=== PATIENT | female | born 1965 | race Caucasian/White ===

== ENCOUNTER 2023-03-21 08:34 | Outpatient (OUT) | payer OTHER, SELFPAY ==
[2023-03-21 08:56] LABS: Basophils Absolute Auto 0.1 10^3/uL (0.0-0.1); Basophils Percent Auto 0.8 % (0.2-2.0); Eosinophils Absolute Auto 0.2 10^3/uL (0.0-0.7); Eosinophils Percent Auto 3.1 % (0.9-7.0); Hematocrit 38.7 % (36.0-48.0); Hemoglobin 12.6 g/dL (12.0-16.0); Immature Granulocytes Abs Auto 0.02 10^3/uL (0.00-0.03); Immature Granulocytes Pct Auto 0.3 % (0.0-0.5); Lymphocytes Absolute Auto 1.8 10^3/uL (1.2-3.8); Lymphocytes Percent Auto 29.2 % (20.5-60.0); Mean Corpuscular HGB Conc 32.6 g/dL (29.9-35.2); Mean Corpuscular Hemoglobin 29.5 pg (26.7-34.0); Mean Corpuscular Volume 90.6 fL (81.0-99.0); Mean Platelet Volume 10.3 fL (9.5-13.5); Monocytes Absolute Auto 0.6 10^3/uL (0.3-0.8); Monocytes Percent Auto 10.2 % (1.7-12.0); Neutrophils Absolute Auto 3.4 10^3/uL (1.4-6.5); Neutrophils Percent Auto 56.4 % (43.0-75.0); Platelet Count 290 10^3/uL (150-450); Red Blood Count 4.27 10^6/uL (4.20-5.40); Red Cell Distribution Width 12.9 % (11.0-15.0); White Blood Count 6.1 10^3/uL (4.0-11.0)
[2023-03-21 09:14] LABS: Alanine Aminotransferase 58 U/L (14-59); Albumin Globulin Ratio 0.8; Albumin Level 3.5 g/dL (3.4-5.0); Alkaline Phosphatase 150 U/L (46-116); Aspartate Amino Transferase 32 U/L (15-37); Bilirubin Direct 0.1 mg/dL (0.0-0.2); Bilirubin Total 0.3 mg/dL (0.2-1.0); Globulin 4.5 g/dL
== END 2023-03-21 08:35 ==
LOC: LAB 08:38
PROVIDERS: PCP Internal Medicine
DX: K74.3 Primary biliary cirrhosis (principal)
CPT/HCPCS: 36415; 80076; 85025

== ENCOUNTER 2023-03-28 09:19 | Outpatient (OUT) | payer OTHER, SELFPAY | END 2023-03-28 09:20 | disposition home or self-care (01) | LOC: LAB 09:20 | PROVIDERS: PCP Internal Medicine | DX: E55.9 Vitamin D deficiency, unspecified (principal); K74.3 Primary biliary cirrhosis; Z86.010 Personal history of colon polyps | CPT/HCPCS: 36415; 82306 ==

== ENCOUNTER 2023-08-04 09:45 | Outpatient (OUT) | payer OTHER, SELFPAY ==
[2023-08-04 10:54] LABS: Free T3 2.03 pg/mL (2.18-3.98); Thyroid Stimulating Hormone 1.266 uIU/mL (0.358-3.740)
== END 2023-08-04 09:46 | disposition home or self-care (01) ==
LOC: LAB 09:48
PROVIDERS: PCP Internal Medicine; Visit Provider Internal Medicine
DX: E06.3 Autoimmune thyroiditis (principal); E55.9 Vitamin D deficiency, unspecified
CPT/HCPCS: 36415; 84439; 84443; 84481

== ENCOUNTER 2023-10-24 09:10 | Outpatient (OUT) | payer OTHER, SELFPAY ==
--- OUTSIDE RECORDS SUMMARY | 2023-10-24 09:15 | XMS_ITS | CCD ---
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 Primary Care Provider SHAIKH GUO Primary Care Physician [phone] Alok Choi Jr. Primary Care Provider SALAM, REEVES Admitting Unavailable SALAM, REEVES Attending Unavailable FAWWAD, GRAVES H Primary Care Unavailable SALAM, REEVES Consulting Unavailable FAWWAD, GRAVES H Consulting Unavailable FAWWAD, GRAVES H Primary Care Unavailable FAWWAD, GRAVES H Admitting Unavailable FAWWAD, GRAVES H Attending Unavailable FAWWAD, GRAVES H Primary Care Unavailable RYDER, AHMAD Consulting Unavailable RYDER, AHMAD Admitting Unavailable RYDER, AHMAD Attending Unavailable FAWWAD, GRAVES H Primary Care Unavailable MISC, DR MORENO Admitting Unavailable MISC, DR MORENO Attending Unavailable MISC, DR MORENO Consulting Unavailable SALAM, REEVES Admitting Unavailable SALAM, REEVES Attending Unavailable SALAM, REEVES Consulting Unavailable FAWWAD, GRAVES H Primary Care Unavailable FAWWAD, GRAVES H Primary Care Unavailable FAWWAD, GRAVES H Admitting Unavailable FAWWAD, GRAVES H Attending Unavailable FAWWAD, GRAVES H Consulting Unavailable FAWWAD, GRAVES H Consulting Unavailable FAWWAD, GRAVES H Primary Care Unavailable FAWWAD, GRAVES H Admitting Unavailable FAWWAD, GRAVES H Attending Unavailable YAS WALL Referring Unavailable ALOK CHOI JR Primary Care Unavail able YAS WALL Attending Unavailable YAS WALL S Referring Unavailable ALOK CHOI JR [facility] Care Unavail able O'MENDEZYAS Attending Unavailable BRANT [facility] Primary Care Unavailable Vitaly Stauffer Attending Unavaila amador GUO, [facility] Primary Care Unavailable SALAM, Reeves Attending Unavailable SALAM, Reeves Attending Unavailable [facility] Un[facility] SALAM, Reeves Referring Unavailable [facility] Primary Care Unavailable SALAM, Reeves Admitting Unavailable SALAM, Reeves Attending Unavailable FAWCHACORTA, [facility] Care Unavailable O'MENDEZ, YAS S Admitting Unavailable O'MENDEZ, YAS Faustin Attending Unavailable O'MENDEZYAS Referring Unavailable STACIA, [facility] Primary Care Unavailable Vitaly Stauffer Attending UnavailHERMES Clark Attending Unavailable HERMES JOHNSON Attending Unavailable Brant URIAS [facility] Provider [phone] LYNDON QUINN Attending Unavailable [facility] Unavailable HERMES CABALLERO Attending Unavailable [facility] Unavailable Allergies Allergy Classification Reported Allergen(s) Allergy Type Date of Onset Reaction(s) Facility (9 sources) rifAMPin; Translations: [RIFAMPIN] Drug Allergy 6 Rash, Itching [facility] (14 sources) Sulfonamides (Antibiotic); Translations: [SULFA (SULFONAMIDE ANTIBIOTICS)] Drug Allergy 9 Other: See Comments, Hives [facility] (6 sources) Sulfonamides (Antibiotic); Translations: [sulfa drugs] Drug allergy allergy [facility] (1 source) Sulfonamides (Antibiotic) Drug allergy (disorder) 3 [facility] (1 source) ALLERGIES NOT ON FILE; Translations: [ALLERGIES NOT ON FILE] Propensity to adverse reactions (disorder) [facility] [place] 3 Repository Medications Current Medications Medication Drug Class(es) Dates Sig (Normalized) Sig (Original) calcium carbonate 1250 mg / cholecalciferol 200 unt oral tablet (4 sources) Vitamin D take 1 tablet by mouth once daily calcium carbonate-vitamin D3 500 mg-5 mcg (200 unit) tablet Take 1 tablet by mouth once daily. 0 Active calcium citrate 500 mg oral tablet (5 sources) Start: 11-17-2020 take 500 mg by mouth twice daily calcium citrate 500 mg, Oral, BID, Refills(s) 0, Prophylaxis Start Date: 11/17/20 Status: Ordered calcium citrate 1500 mg / cholecalciferol 200 unt oral tablet (4 sources) Vitamin D take 1 tablet by mouth once daily calcium citrate-vitamin D3 (Citracal+D) 315 mg-5 mcg (200 unit) tablet Take 1 tablet by mouth once daily. 0 Active fenofibrate 145 mg oral tablet (15 sources) Peroxisome Proliferator Receptor alpha Agonist Start: 10-14-2022 End: 04-12-2023 take 0.5 tablet by mouth every other day fenofibrate 145 mg Tab 1/2 tab(s), Oral, Every other day, X 90 day(s), # 90 tab(s), Refills(s) 1, Pharmacy: [facility] [id number], 160, cm, 05/13/22 13:20:00 EDT, Height/Length Dosing, 76.6, kg, 05/13/22 13:20:00 EDT, Weight Dosing Start Date: 10/14/22 Stop Date: 04/12/23 Status: Ordered Start: 09-15-2021 take 0.5 tablet by m out once daily fenofibrate 145 mg Tab 1/2 tab(s), Oral, Daily, # 30 tab(s), Refills(s) 4, Pharmacy: [facility], 160, cm, 09/15/21 14:38:00 EST, Height/Length Dosing, 75.6, kg, 09/15/21 14:38:00 EST, Weight Dosing Start Date: 09/15/21 Status: Ordered Start: 08-18-2021 take 1 tablet by sara th once daily fenofibrate nanocrystallized (TRICOR) 145 mg tablet TAKE 1 TABLET BY MOUTH EVERY DAY 30 tablet 11 08/18/2021 Active Comment on above: TAKE 1 TABLET BY SARA TH EVERY DAY multivitamin tablet (4 sources) take 1 tablet by mouth once daily multivitamin tablet Take 1 tablet by mouth once daily. 0 Active Multivitamins and Minerals (5 sources) Start: take 1 tablet by mouth once daily Multivitamins and Minerals 1 tab, Oral, Daily, Refill(s) 0, Prophylaxis Start Date: 11/17/20 Status: Ordered obeticholic acid 5 mg oral tablet (18 sources) Farnesoid X Receptor Agonist Start: take 2.5 mg by mouth once daily Ocaliva 5 mg oral tablet See Instructions, 2.5 mg= 1/2 tablet Oral Daily, # 30 tab(s), Refills(s) 0, Pharmacy: [facility], 160, cm, 01/12/23 10:47:00 EDT, Height/Length Dosing, 84.6, kg, 01/12/23 10:47:00 EDT, Weight Dosing Start Date: 01/12/23 Status: Ordered Start: 10-21-2021 End: 10-16-2022 take 1 tablet by mouth once daily Ocaliva 5 mg oral tablet 5 mg = 1 tab(s), Oral, Daily, X 90 day(s), # 90 tab(s), Refills(s) 3, Pharmacy: [facility], 160, cm, 09/15/21 14:38:00 EST, Height/Length Dosing, 75.6, kg, 09/15/21 14:38:00 EST, Weight Dosing Start Date: 10/21/21 Stop Date: 10/16/22 Status: Ordered Start: 09-15-2021 take 0.5 tablet by m outh once daily Ocaliva 5 mg oral tablet 1/2, Oral, Daily, # 15 tab(s), Refills(s) 11, Pharmacy: [facility], 160, cm, 09/15/21 14:38:00 EST, Height/Length Dosing, 75.6, kg, 09/15/21 14:38:00 EST, Weight Dosing Start Date: 09/15/21 Status: Ordered ursodiol 500 mg oral tablet (17 sources) Bile Acid Start: 01-12-2023 take 1 tablet by mouth twice daily at mealtime ursodiol 500 mg Tab 500 mg = 1 tab(s), Oral, BID, with food, # 60 tab(s), Refills(s) 11, Pharmacy: [facility], 160, cm, 01/12/23 10:47:00 EDT, Height/Length Dosing, 84.6, kg, 01/12/23 10:47:00 EDT, Weight Dosing Start Date: 01/12/23 Status: Ordered Start: 09-15-2021 take 1 tablet by sara twice daily at mealtime ursodiol 500 mg Tab 500 mg = 1 tab(s), Oral, BID, with food, # 60 tab(s), Refills(s) 11, Pharmacy: [facility], 160, cm, 09/15/21 14:38:00 EST, Height/Length Dosing, 75.6, kg, 09/15/21 14:38:00 EST, Weight Dosing Start Date: 09/15/21 Status: Ordered Start: 12-29-2020 take 1 tablet by sara three times daily Ursodiol 500 mg tablet TK 1 T PO TID WF 180 tablet 3 12/29/2020 Active Comment on above: TK 1 T PO TID WF Vitamin D 50,000 intl units (1.25 mg) oral capsule (9 sources) Start: 05-12-2023 End: 05-06-2024 Vitamin D 50,000 intl units (1.25 mg) oral capsule 50,000 International_Unit, Oral, qWeek, X 90 day(s), # 12 cap(s), Refills(s) 3, Pharmacy: [facility] [id number], 160, cm, 05/12/23 13:51:00 EDT, Height/Length Dosing, 83.4, kg, 05/12/23 13:51:00 EDT, Weight Dosing Start Date: 05/12/23 Stop Date: 05/06/24 Status: Ordered Start: 04-18-2023 End: 05-18-2023 Vitamin D 50,000 intl units (1.25 mg) oral capsule 50,000 International_Unit, Oral, qWeek, X 30 day(s), # 4 cap(s), Refills(s) 0, Pharmacy: [facility] [id number], 160, cm, 01/12/23 10:47:00 EDT, Height/Length Dosing, 84.6, kg, 01/12/23 10:47:00 EDT, Weight Dosing Start Date: 04/18/23 Stop Date: 05/18/23 Status: Ordered Start: 09-09-2022 take 1 capsule by mouth once V itamin D 50,000 intl units (1.25 mg) oral capsule See Instructions, 1 cap(s) Oral As Directed tuesday-Tuesday as previously prescribed per Dr. Bill., # 24 cap(s), Refills(s) 1, Pharmacy: [facility] [id number], 160, cm, 05/13/22 13:20:00 EDT, Height/Length Dosing, 76.6, kg, 05/13/22 13:20:00 EDT,... Start Date: 09/09/22 Status: Ordered Start: 09-15-2021 Vitamin D 50,0 00 intl units (1.25 mg) oral capsule 50,000 International_Unit, Oral, As Directed, # 24 cap(s), Refills(s) 0, Pharmacy: [facility], 160, cm, 09/15/21 14:38:00 EST, Height/Length Dosing, 75.6, kg, 09/15/21 14:38:00 EST, Weight Dosing Start Date: 09/15/21 Status: Ordered Completed/Discontinued Medications Medication Drug Class(es) Dates Sig (Normalized) Sig (Original) alendronic acid 70 mg oral tablet (17 sources) Bisphosphonate Start: 09-07-2021 take 1 tablet by mouth every week in the morning alendronate (FOSAMAX) 70 mg tablet Indications: Osteopenia with high risk of fracture TAKE 1 TABLET BY MOUTH ONCE EVERY WEEK. TAKE WITH FULL GLASS OF WATER IN THE MORNING ON AN EMPTY STOMACH. DO NOT LIE DOWN FOR 30 MINUTES 12 tablet 3 09/07/2021 Active Start: 11-17-2020 take 1 tablet by sara th once daily alendronate 10 mg Tab 10 mg = 1 tab(s), Oral, Daily, osteoporosis, Refills(s) 0, Other (see comment) Start Date: 11/17/20 Status: Ordered take 1 tablet by sara th in the morning alendronate (Fosamax) 70 mg tablet Take 1 tablet (70 mg) by mouth every 7 days. Take in the morning with a full glass of water, on an empty stomach, and do not take anything else by mouth or lie down for the next 30 min. 0 Active Comment on above: TAKE 1 TABLET BY SARA TH ONCE EVERY WEEK. TAKE WITH FULL GLASS OF WATER IN THE MORNING ON AN EMPTY STOMACH. DO NOT LIE DOWN FOR 30 MINUTES clobetasol propionate 0.0005 mg/mg topical ointment (8 sources) Corticosteroid Start: 007 CLOBETASOL 0.05 % OINTMENT Indications: Contact dermatitis and other eczema, due to unspecified cause , Other and unspecified superficial injury of other, multiple, and unspecified sites, without mention of infection Apply to affected area(s) twice daily PRN itch ` large trade size 2 10/26/2006 Active Comment on above: Apply to affected ar ea(s) twice daily PRN itch ergocalciferol 1.25 mg oral capsule (8 sources) Provitamin D2 Compound Start: 020 ergocalciferol 50,000 unit capsule (VITAMIN D2, DRISDOL) TK 1 C PO TWICE A WEEK ON TUESDAY AND TUESDAY 0 11/09/2019 Active Comment on above: TK 1 C PO TWICE A WE EK ON TUESDAY AND TUESDAY levothyroxine sodium 0.15 mg oral tablet (17 sources) l-Thyroxine Start: 021 take 1 tablet by mouth once daily, then take 5 tablets by mouth every week levothyroxine (SYNTHROID) 150 mcg tablet Indications: Other specified hypothyroidism Take 1 tablet by mouth once daily. But skip Saturdays and Sundays (so total 5 tablets per week) 66 tablet 3 12/22/2020 Active Start: 01-22-2016 levothyroxine 175 microgram, Oral, As Directed, Refills(s) 0, Thyroid Start Date: 01/22/16 Status: Ordered take 1 capsule by mo [facility] once daily levothyroxine (Tirosint) 112 mcg capsule Take 1 capsule (112 mcg) by mouth once daily. 0 Active Comment on above: Take 1 tablet by sara th once daily. But skip Saturdays and Sundays (so total 5 tablets per week) MULTIVITAMIN ORAL (8 sources) take 1 tablet by mouth once daily MULTIVITAMIN ORAL Take 1 tablet by mouth once daily. 0 Active Comment on above: Take 1 tablet by sara once daily. Problems Active Problems Problem Classification Problem Date Documented Da te Episodic/Chronic Administrative/social admission (4 sources) Encounter for pre-employment examination; Translations: [ENCOUNTER FOR PRE-EMPLOYMENT EXAM] Onset: 11-23-2022 Episodic Cancer of pancreas (6 sources) Familial malignant neoplasm of pancreas; Translations: [Malignant neoplasm of pancreas, unspecified] Onset: 10-05-2023 10-05-2023 Chronic Menopausal disorders (4 sources) Menopausal and female climacteric states; Translations: [MENOPAUSAL FE CLIMACTERIC STATES] Onset: 09-22-2022 Chronic Nutritional deficiencies (6 sources) Vitamin D deficiency; Translations: [Vitamin D deficiency, unspecified] Onset: 01-12-2023 Chronic Other and unspecified benign neoplasm (8 sources) History of polyp of colon; Translations: [Personal history of colonic polyps] Onset: 05-13-2022 Episodic Other bone disease and musculoskeletal deformities (1 source) Disorder of bone; Translations: [Other specified disorders of bone density and structure, unspecified site] Onset: 05-12-2023 Episodic Other bone disease and musculoskeletal deformities (1 source) Osteopenia 05-12-2023 Episodic Other liver diseases (20 sources) Primary biliary cholangitis; Translations: [Primary biliary cirrhosis] Onset: 01-21-2021 01-21-2021 Chronic Other liver diseases (4 sources) Primary biliary cirrhosis; Translations: [PRIMARY BILIARY CIRRHOSIS] Onset: 01-07-2023 Chronic Other nutritional; endocrine; and metabolic disorders (2 sources) Obesity; Translations: [Obesity, unspecified] Onset: 10-06-2023 10-06-2023 Chronic Other screening for suspected conditions (not mental disorders or infectious disease) (3 sources) Encounter for screening for diabetes mellitus; Translations: [Imaging of abdomen abnormal] Onset: 02-24-2022 Episodic Residual codes; unclassified (2 sources) Family history of carrier of genetic disease; Translations: [Family history of carrier of genetic disease] Onset: 08-09-2023 Episodic Residual codes; unclassified (8 sources) 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; Translations: [Genetic susceptibility to malignant neoplasm of breast] Onset: 09-21-2023 09-21-2023 Episodic Residual codes; unclassified (2 sources) Genetic susceptibility to malignant neoplasm of breast; Translations: [Genetic susceptibility to malignant neoplasm of breast] Onset: 09-21-2023 Episodic Residual codes; unclassified (2 sources) Genetic susceptibility to other malignant neoplasm; Translations: [Genetic susceptibility to other malignant neoplasm] Onset: 09-21-2023 Episodic Thyroid disorders (11 sources) Hypothyroidism; Translations: [Hypothyroidism, unspecified] Onset: 05-13-2022 Chronic Past or Other Problems Problem Classification Problem Date Documented Date Episodic/Chronic Allergic reactions (8 sources) Contact dermatitis; Translations: [Unspecified contact dermatitis, unspecified cause] Onset: 10-30-2006 10-30-2006 Episodic Immunizations and screening for infectious disease (16 sources) Anti-nuclear factor positive; Translations: [Other specified abnormal immunological findings in serum] Onset: 01-21-2021 01-21-2021 Episodic Malaise and fatigue (1 source) Other fatigue; Translations: [OTHER FATIGUE] Onset: 09-30-2022 Episodic Other and unspecified benign neoplasm (1 source) Personal history of colonic polyps; Translations: [PERSONAL HISTORY OF COLONIC POLYPS] Onset: 09-30-2022 Episodic Other connective tissue disease (8 sources) Decrease in height; Translations: [Loss of height] Onset: 01-21-2021 01-21-2021 Episodic Other inflammatory condition of skin (8 sources) Pruritus of skin; Translations: [Pruritus, unspecified] Onset: 10-30-2006 10-30-2006 Episodic Other injuries and conditions due to external causes (8 sources) H/O: fracture; Translations: [Personal history of (healed) traumatic fracture] Onset: 01-21-2021 01-21-2021 Episodic Unclassified (4 sources) Onset: 09-08-2023 09-08-2023 Results Test Name Value Interpretation Reference Range Facility Endoscopic Ultrasound (Upper )on 10-06-2023 Table formatting from the original result was not included. Impression The pancreatic parenchyma was visualized in the entire pancreas and appeared to have a normal salt and pepper appearance. The pancreatic duct appeared normal. Findings The pancreatic parenchyma was visualized in the entire pancreas and appeared to have a normal salt and pepper appearance. The pancreatic duct appeared normal and measured 2.8 mm at the head, 2.4 mm at the body and 1.6 mm at the tail. Mildly bulbuous at the orifice but not enlarged enough to suggest pancreaticocoele Recommendation Follow up with me in clinic MR/MRCP in one year Indication BRCA positive, Primary biliary cholangitis (CMS/HCC), Familial malignant neoplasm of pancreas (CMS/HCC) Staff Staff Role No Staff Documented Medications See Anesthesia Record. Preprocedure A history and physical has been performed, and patient medication allergies have been reviewed. The patient's tolerance of previous anesthesia has been reviewed. The risks and benefits of the procedure and the sedation options and risks were discussed with the patient. All questions were answered and informed consent obtained. Details of the Procedure The patient underwent monitored anesthesia care, which was administered by an anesthesia professional. The patient's blood pressure, heart rate, level of consciousness, oxygen, respirations, ECG and ETCO2 were monitored throughout the procedure. The radial scope was introduced through the mouth and advanced to the second part of the duodenum. Events Procedure Events Event Event Time ENDO SCOPE IN TIME 10/06/2023 2:09 PM ENDO SCOPE OUT TIME 10/06/2023 2:15 PM Specimens No specimens collected Procedure Location [facility] [address] [facility] [id number] [place] [address] Department Of Medicine-[place] [address] Procedure Provider Vance Baires MD [facility] Work Phone: [facility] Work Phone: Radiology Study observation (narrative) [facility] Work Phone: Gastroenterology Office/Clin ic Noteon 05-16-2023 Gastroenterology Office/Clinic Note Chief Complaint 4 mo follow up HPI Staff This is a 58 year old female who presents today for a 4 month follow up. History of Present Illness Nithya Vasques is a 58-year-old white female for follow up. 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 Her last Fibro Scan showed still no fibrosis and no steatosis. Her DEXA scan was last year, and she was updated with it. She has osteopenia. Her last AST and ALT on showed normal. The patient states that during the ultrasound session, the focus was on her gallbladder, which was noted to be distended, causing some concerns. She inquired about calcium supplements, whoever i should opt for [id number] options or require a prescription for vitamin D. Currently. I am taking half a pill of 5 mg Ocaliva, equating to 2.5 mg, o a weekly basis. This dose has been used to take 2 vitamin D pills each week. However, she encountered issues with tolerating higher doses of Ocaliva, experiencing loose stool frequently after each bathroom visit. She experienced itching g my ALT and AST levels have shown fluctuations and were elevated, and Dr. Wall has been manageable my primary biliary condition. During her time, she has been taking 2.5 mg of ursodiol. Her weight has increased by 40 pounds, which was initially considered adequate. This weight gain has raised concerns particularly in light grain has raised concerns, particularly in light of potential implication of obesity and fatty lever, possibly making her candidate for CROW, in addition to dealing with three autoimmune diseases. Review of Systems PHQ Score Initial Depression Screen Score: 0 Constitutional: no fever, no chills, no sweats, no weakness Skin: no Jaundice, no rash, no lesions, no petechiaec ENMT: no ear pain, no sore throat, no congestion, no hoarseness Respiratory: no shortness of breath, no cough, no orthopnea, no wheezing Cardiovascular: no chest pain, no palpitations, no edema Gastrointestinal: no nausea, no vomiting, no diarrhea, no constipation, no GI bleeding, no abdominal pain, no dysphagia, no bloating, no heartburn Genitourinary: no dysuria, no hematuria, no discharge, no pain Musculoskeletal: no back pain, no trauma Neurologic: no numbness, no sleeping problems Additional ROS info: Except as noted in the above Review of Systems and in the History of Present Illness all other systems have been reviewed and are negative or noncontributory. Physical Exam Vitals & Measurements T: 36.6 ?C(Temporal Artery) HR: 69(Peripheral) RR: 16 BP: 111/75 HT: 63 in HT: 160 cm WT: 83.4 kg WT: 183.48 lb BMI: 32.58 Constitutional: Appearance: well developed. Skin: Inspection: no rashes, ulcers, icterus, or telangiectasias. Eyes: Conjunctivae/lids: normal conjunctivae and lids. ENMT: Hearing: within normal limits. Lips/Teeth/Gums: normal oral mucosa. Neck: Neck: normal motion, central trachea. Respiratory: Percussion: thorax normoresonant. Auscultation: normal breath sounds; no rubs, wheezes, rale, or rhonchi. Cardiovascular: Auscultation: normal rhythm, S1 and S2; no rubs, murmurs, or gallop. Peripheral: no edema. Gastrointestinal/Abd omen: Abdomen: normal consistency and bowel sounds; no tenderness or masses. Liver/Spleen: normal size and consistency, not palpable. Rectal: deferred. Musculoskeletal: Gait/Station: normal gait. Assessment/Plan 1. Primary biliary cholangitis (K74.3: Primary biliary cirrhosis) Patient had a recent FibroScan, which showed no fibrosis and no steatosis. Her alkaline phosphatase is 150. She's on ergocalciferol 1250 mg p.o. daily and Ocaliva 5 mg p.o. daily. She did not tolerate higher doses of Ocaliva in the past, secondary to worsening diarrhea. She is following up with [facility] hepatology also. 2. Vitamin D deficiency (E55.9: Vitamin D deficiency, unspecified) Corrected and level is back to normal. She is on weekly vitamin D treatment. Advised to continue with the current day dose. 3. Osteopenia (M85.80: Other specified disorders of bone density and structure, unspecified site) Based on recent DEXA scan. Advised to start vitamin D and to continue with vitamin D and to start calcium. Patient was also advised to follow up with her primary care physician as osteopenia need to be treated as if it's osteoporosis in a patient with primary biliary cholangitis. 4. Personal history of colonic polyps (Z86.010: Personal history of colonic polyps) Last colonoscopy was on 12/2020 showed no further colonic polyps. Next colonoscopy would be due in 7 years and would be due in 2027. 5. Abnormal US (ultrasound) of abdomen (R93.5: Abnormal findings on diagnostic imaging of other abdominal regions, including retroperitoneum) Patient has mild concentration concerns about her dilated gallbladder mentioned on the ultrasound report. I reviewed the report and her gallbladder distention is physiologic. She is asymptomati (more content not included)... Normal [facility] Comment on above: Result Comment: Elec tronically Signed By: Hunter Devi\.br\Date and Time Signed: 05/12/23 18:26 EDT\.br\Electronically Co-Signed By: Leandro BILL MD\.br\Date and Time Co-Signed: 05/16/23 14:00 EDT Ambulatory Visit Summaryon 0 05-12-2023 Ambulatory Visit Summary NITHYA VASQUES :1965 Visit Date:05/12/2023 Ambulatory Visit Instructions Your Diagnosis Primary biliary cholangitis Vitamin D deficiency Osteopenia Personal history of colonic polyps Abnormal US (ultrasound) of abdomen Your Care Team Attending Physician - Leandro BILL MD Primary Care Physician - SHAIKH GUO This Is Your Medications List ergocalciferol (Vitamin D 50,000 intl units (1.25 mg) oral capsule) Contact prescribing physician if questions or concerns alendronate (alendronate 10 mg Tab) calcium citrate ergocalciferol (Vitamin D 50,000 intl units (1.25 mg) oral capsule) levothyroxine multivitamin with minerals (Multivitamins and Minerals) obeticholic acid (Ocaliva 5 mg oral tablet) obeticholic acid (Ocaliva 5 mg oral tablet) obeticholic acid (Ocaliva 5 mg oral tablet) ursodiol (ursodiol 500 mg Tab) Procedures Performed Colonoscopy (12/29/2020), Appendectomy, section, Tonsillectomy and adenoidectomy. Discharge Vitals Temperature (Temporal Artery) 36.6 ?C Heart Rate (Peripheral) 69 Respiratory Rate 16 Blood Pressure 111/75 Height 160 cm Height 63 in Weight 83.4 kg Weight 183.48 lb BMI 32.58 What to do next Scheduled Follow-Up Appointments Tuesday 10:45 AM EDT With: Leandro BILL MD Where: [facility] Normal [facility] Tele[facility] (GASTA5) NITHYA VASQUES ([id number]) 1965 F Date Time Provider Department 05/05/23 YAS WALL GASTA5 During your visit today, we recorded the following information about you: Annette Molina RN 05/05/2023 12:16 PM Signed Pt sent the following MCM regarding US and fibroscan results: I didn?t see these results in my chart for the [facility], so I am sending them. Can you see that Dr. Ortiz sees these? Pt uploaded images of results under scanned docs. Results not viewable in Care Everywhere at this time. See scanned docs for results review. Annette Molina RN May 05, 2023 12:16 PM Yas Wall MD 05/06/2023 1:46 PM Signed Fibroscan w Ekpa 4.8 Us stable Allergies As of Date: 05/05/2023 Noted Allergy Reaction RIFAMPIN 06/15/2006 2 - Rash 9 - Itching SULFA (SULFONAMIDE ANTIBIOTICS) 09/18/2019 14 - Other: See Comments Date Reviewed: 01/21/2021 Reviewed by: Jonh Forde - Fully Assessed Reason for Visit: Results [95] Prescriptions as of 05/06/2023 - alendronate (FOSAMAX) 70 mg tablet TAKE 1 TABLET BY MOUTH ONCE EVERY WEEK. TAKE WITH FULL GLASS OF WATER IN THE MORNING ON AN EMPTY STOMACH. DO NOT LIE DOWN FOR 30 MINUTES - fenofibrate nanocrystallized (TRICOR) 145 mg tablet TAKE 1 TABLET BY MOUTH EVERY DAY - Ursodiol 500 mg tablet TK 1 T PO TID WF - levothyroxine (SYNTHROID) 150 mcg tablet Take 1 tablet by mouth once daily. But skip Saturdays and Sundays (so total 5 tablets per week) - MULTIVITAMIN ORAL Take 1 tablet by mouth once daily. - ergocalciferol 50,000 unit capsule (VITAMIN D2, DRISDOL) TK 1 C PO TWICE A WEEK ON TUESDAY AND TUESDAY - CLOBETASOL 0.05 % OINTMENT Apply to affected area(s) twice daily PRN itch Problem List As Of Date 05/05/2023 Noted Resolved DERMATITIS NOS [L25.9] 10/30/2006 PRURITIC DISORDER NOS [L29.9] 10/30/2006 Primary biliary cirrhosis (HCC) [K74.3] 01/21/2021 History of fracture [Z87.81] 01/21/2021 Loss of height [R29.890] 01/21/2021 Positive MIRACLE (antinuclear antibody) [R76.8] 01/21/2021 Centromere antibody positive [R76.8] 01/21/2021 Encounter Status:Closed by YAS WALL on 05/06/23 Normal [facility] Postoperative Documentson Postoperative Documents [id number]#1.00CD:127 Normal [facility] Consent for Treatmenton 04-02 Consent for Treatment [id number] #1.00CD:127 Normal [facility] Lab Reportson 04-20-2023 Lab Reports [id number] #1.00CD:127 Normal [facility] Lab Reports [id number] #1.00CD:127 Normal [facility] US Abdomen, Limitedon 2022 US Abdomen, Limited Exam Date/Time: 04/20/2023 09:28 EDT Reason for Exam: K74.3 Report IMPRESSION: FINDINGS SUGGESTING MILD HEPATIC STEATOSIS. EXAMINATION: US Abdomen, Limited HISTORY: Primary biliary cirrhosis COMPARISON: None available TECHNIQUE: Ultrasound evaluation was performed of the right upper quadrant of the abdomen FINDINGS: Slight increased echogenicity of the liver. Normal contour of the liver. No liver lesion or intrahepatic biliary dilatation identified. Liver length measured at approximately 14.5 cm. The gallbladder is physiologically distended. No cholelithiasis or pericholecystic fluid. Gallbladder wall thickness is normal measured at approximately 2.6 mm. Common bile duct is normal measuring approximately 3.7 mm in diameter. No overt abnormality of the pancreas. Ordering Provider: YAS WALL FINAL REPORT Dictated: 04/20/2023 4:51 pm Yas Rodriguez DO Signed (Electronic Signature): 04/20/2023 4:51 pm Signed by: Yas Rodriguez DO Transcribed by: DP Technologist: HW [facility] Physician Orderon 04-12-2023 Physician Order [id number] #1.00CD:127 [facility] CNPNon 2023 CNPN Telephone (GASTA5) NITHYA VASQUES ([id number]) 1965 F Date Time Provider Department 04/07/23 YAS WALL GASTA5 During your visit today, we recorded the following information about you: Annette Molina RN 2023 10:17 AM Signed Pt sent the following MCM: Dr. Ortiz wanted to know it the scan was vibration or ultrasound, it was ultrasound. Pt provided attachment of fibroscan image results. See pt entered attachment from yesterday 04/06/23. Message sent to Dr. Wall for review. Annette Molina RN 2023 10:17 AM Yas Wall MD 2023 2:59 PM Signed Annette Can you please return the call, and let her know: I will put in orders for her to have it done again with ultrasound, so we have a basis for comparison Thanks Annette Molina RN 2023 3:06 PM Signed Pt notified via original MCM. Annette Molina RN 2023 3:06 PM Allergies As of Date: 2023 Noted Allergy Reaction RIFAMPIN 06/15/2006 2 - Rash 9 - Itching SULFA (SULFONAMIDE ANTIBIOTICS) 09/18/2019 14 - Other: See Comments Date Reviewed: 01/21/2021 Reviewed by: Jonh Forde - Fully Assessed Reason for Visit: Results [95] Primary Visit Diagnosis:Primary biliary cholangitis (HCC) [K74.3] Order(s):US ABD RIGHT UPPER QUADRANT [[id number]] Order #: [id number] FUTURE US ELASTOGRAPHY LIVER [[id number]] Order #: [id number] FUTURE Prescriptions as of 2023 - alendronate (FOSAMAX) 70 mg tablet TAKE 1 TABLET BY MOUTH ONCE EVERY WEEK. TAKE WITH FULL GLASS OF WATER IN THE MORNING ON AN EMPTY STOMACH. DO NOT LIE DOWN FOR 30 MINUTES - fenofibrate nanocrystallized (TRICOR) 145 mg tablet TAKE 1 TABLET BY MOUTH EVERY DAY - Ursodiol 500 mg tablet TK 1 T PO TID WF - levothyroxine (SYNTHROID) 150 mcg tablet Take 1 tablet by mouth once daily. But skip Saturdays and Sundays (so total 5 tablets per week) - MULTIVITAMIN ORAL Take 1 tablet by mouth once daily. - ergocalciferol 50,000 unit capsule (VITAMIN D2, DRISDOL) TK 1 C PO TWICE A WEEK ON TUESDAY AND TUESDAY - CLOBETASOL 0.05 % OINTMENT Apply to affected area(s) twice daily PRN itch Problem List As Of Date 2023 Noted Resolved DERMATITIS NOS [L25.9] 10/30/2006 PRURITIC DISORDER NOS [L29.9] 10/30/2006 Primary biliary cirrhosis (HCC) [K74.3] 01/21/2021 History of fracture [Z87.81] 01/21/2021 Loss of height [R29.890] 01/21/2021 Positive MIRACLE (antinuclear antibody) [R76.8] 01/21/2021 Centromere antibody positive [R76.8] 01/21/2021 Encounter Status:Closed by YAS WALL on 04/07/23 [facility] Lab Reportson 03-24-2023 Lab Reports [id number]# 1.00CD:127 [facility] Consultation Noteon 03-21-20 Consultation Note [id number] #1.00CD:127 [facility] Pre-Certification Formon Pre-Certification Form [id number]# 1.00CD:127 [facility] Pre-Certification Formon Pre-Certification Form [id number]# 1.00CD:127 [facility] Pre-Certification Formon Pre-Certification Form [id number] #1.00CD:127 [facility] Retail - Clinical Noteon Retail - Clinical Note [id number] #1.00CD:127 [facility] BD Bone Density DEXAon 02-04 BD Bone Density DEXA Exam Date/Time: 02/03/2023 14:18 EDT Reason for Exam: K74.3 E55.9 Z86.010 Report IMPRESSION: OSTEOPENIA. THE 10 YEAR PROBABILITY (FRAX) OF A MAJOR OSTEOPOROTIC FRACTURE IS 9.8% AND HIP FRACTURE IS 0.3%. CLINICAL HISTORY: K74.3 E55.9 Z86.010. COMPARISON: 12/10/2019. COMMENTS: The lumbar spine and both hips were scanned. The mean bone mineral density from L1 to L4 is 0.982 g/cm2 and this value is -1.7 standard of deviation below the standard reference value for a young adult. Bone mineral density of the left femoral neck is 0.963 g/cm2 and this value is -0.5 standard of deviation below the standard reference value. Bone mineral density of the right femoral neck is 0.971 g/cm2 and this value is -0.5 standard of deviation below the standard reference value. The lowest of the values meets WHO criteria for osteopenia. When compared to the prior exam, there has been a 5.9% increase in bone mineral density from L1 to L4, a 0.6% increase in bone mineral density of the left femoral neck, and a 4.4% increase in bone mineral density of the right femoral neck. Ordering Provider: Leandro BILL FINAL REPORT Dictated: 02/04/2023 7:52 am Adolfo Matson M.D. Signed (Electronic Signature): 02/04/2023 7:52 am Signed by: Adolfo Matson M.D. Transcribed by: STEFANIE Technologist: DARON Normal [facility] Consent for Treatmenton Consent for Treatment [id number] #1.00CD:127 Normal [facility] Lab Reportson 01-14-2023 Lab Reports [id number] #1.00CD:127 Normal [facility] Gastroenterology Office/Clin ic Noteon 01-13-2023 Gastroenterology Office/Clinic Note Chief Complaint 8 month follow up HPI Staff Patient is a 57 year old female who presents today to discuss a repeat DEXA scan for primary biliary cholangitis. History of Present Illness Nithya Vasques is a 57-year-old white female who presents today for a follow-up. She was last seen in 05/2022. She has a history of primary biliary cholangitis diagnosed at the age of [id number]. There was no fibrosis based on a FibroScan which was done in 2021. She is due for another one in 2023. Her alkaline phosphatase has been improving. She is taking ursodiol 500 mg 2 times a day and Ocaliva 2.5 mg daily. Her alkaline phosphatase is down to 166 IU/L. She has normal ALT, AST, normal total bilirubin, and alkaline phosphatase. Her alkaline phosphatase was 153 IU/L in 09/2020 and now it is 163 IU/L. She denies any itching or eczema, but her hands are dry all the time. Patient is due for a DEXA scan. She is taking vitamin D 50,000 international units once weekly. It has been a while since her vitamin D was checked. Nithya stopped taking calcium. Her last colonoscopy was in 12/2020 and there were no polyps. She denies a family history of colon cancer. She sees Dr. Wall at the [facility]. Review of Systems PHQ Score Initial Depression Screen Score: 0 Constitutional: no fever, no chills, no sweats, no weakness Skin: no Jaundice, no rash, no lesions, no petechiae ENMT: no ear pain, no sore throat, no congestion, no hoarseness Respiratory: no shortness of breath, no cough, no orthopnea, no wheezing Cardiovascular: no chest pain, no palpitations, no edema Gastrointestinal: no nausea, no vomiting, no diarrhea, no constipation, no GI bleeding, no abdominal pain, no dysphagia, no bloating, no heartburn Genitourinary: no dysuria, no hematuria, no discharge, no pain Musculoskeletal: no back pain, no trauma Neurologic: no numbness, no sleeping problems Additional ROS info: Except as noted in the above Review of Systems and in the History of Present Illness all other systems have been reviewed and are negative or noncontributory. Physical Exam Vitals & Measurements HR: 75(Peripheral) RR: 16 BP: 124/86 HT: 63 in HT: 160 cm WT: 84.6 kg WT: 186.12 lb BMI: 33.05 Constitutional: Appearance: well developed Skin: Inspection: no rashes, ulcers, icterus, or telangiectasias. Eyes: Conjunctivae/lids: normal conjunctivae and lids. ENMT: Hearing: within normal limits. Lips/Teeth/Gums: normal oral mucosa Neck: Neck: normal motion, central trachea Respiratory: Percussion: thorax normoresonant. Auscultation: normal breath sounds; no rubs, wheezes, rale or rhonchi. Cardiovascular: Auscultation: normal rhythm, S1 and S2; no rubs, murmurs or gallop. Peripheral: no edema Gastrointestinal/Abd omen: Abdomen: normal consistency and bowel sounds; no tenderness or masses. Liver/Spleen: normal size and consistency, not palpable. Rectal: deferred Musculoskeletal: Gait/station: normal gait Assessment/Plan 1. Primary biliary cholangitis (K74.3: Primary biliary cirrhosis) The patient has no fibrosis based on FibroScan 2 years ago. She is due for another FibroScan next year. She is on ursodiol 1250 mg divided in two doses twice daily and Ocaliva 2.5 mg. Her alkaline phosphatase has been in the 150 to 160 range. She is also following up with Dr. Wall at the [facility]. She is advised to continue with vitamin D supplements, calcium, and DEXA scan. She is due for a DEXA scan now. 2. Personal history of colonic polyps (Z86.010: Personal history of colonic polyps) Her last colonoscopy was in 2020. Her next colonoscopy will be in 2030. 3. Vitamin D deficiency (E55.9: Vitamin D deficiency, unspecified) She is on vitamin D 50,000 international units weekly. We will recheck her vitamin D now. ATTESTATION: Documentation services were performed after patient or guardian consented to allow Elsie Peters to record this visit. JANEL infection control specialist and provider reviewed before signing. JANEL: Pippa. Follow-up No qualifying data available Problem List/Past Medical History Ongoing Hypothyroidism Personal history of colonic polyps Primary biliary cholangitis Vitamin D deficiency Historical No qualifying data Procedure/Surgical History Colonoscopy (12/29/2020), Appendectomy, section, Tonsillectomy and adenoidectomy. Medications alendronate 10 mg Tab, 10 mg= 1 tab(s), Oral, Daily calcium citrate, 500 mg, Oral, BID fenofibrate 145 mg Tab, 1/2 tab(s), Oral, Every other day, 1 refills levothyroxine, 175 mcg, Oral, As Directed Multivitamins and Minerals, 1 tab, Oral, Daily Ocaliva 5 mg oral tablet, See Instructions, 11 refills Ocaliva 5 mg oral tablet, 1/2, Oral, Daily, 11 refills Ocaliva 5 mg oral tablet, See Instructions ursodiol 500 mg Tab, 500 mg= 1 tab(s), Oral, BID, 11 refills Vitamin D 50,000 intl units (1.25 mg) oral capsule, See Instructions, 1 refills Vitamin D 50,000 intl units (1.25 mg) oral capsule, 500 (more content not included)... Normal [facility] Comment on above: Result Comment: Elec tronically Signed By: Eloy Peoples\.br\Date and Time Signed: 01/12/23 12:27 EDT\.br\Electronically Co-Signed By: Leandro BILL MD\.br\Date and Time Co-Signed: 01/13/23 08:28 EDT Ambulatory Visit Summaryon 0 01-12-2023 Ambulatory Visit Summary VANITHYA Teresa :1965 Visit Date:01/12/2023 Ambulatory Visit Instructions Your Diagnosis Primary biliary cholangitis Personal history of colonic polyps Vitamin D deficiency Your Care Team Attending Physician - Leandro BILL MD Primary Care Physician - SHAIKH GUO This Is Your Medications List obeticholic acid (Ocaliva 5 mg oral tablet) ursodiol (ursodiol 500 mg Tab) Contact prescribing physician if questions or concerns alendronate (alendronate 10 mg Tab) calcium citrate ergocalciferol (Vitamin D 50,000 intl units (1.25 mg) oral capsule) ergocalciferol (Vitamin D 50,000 intl units (1.25 mg) oral capsule) fenofibrate (fenofibrate 145 mg Tab) levothyroxine multivitamin with minerals (Multivitamins and Minerals) obeticholic acid (Ocaliva 5 mg oral tablet) obeticholic acid (Ocaliva 5 mg oral tablet) Procedures Performed Colonoscopy (12/29/2020), Appendectomy, section, Tonsillectomy and adenoidectomy. Discharge Vitals Heart Rate (Peripheral) 75 Respiratory Rate 16 Blood Pressure 124/86 Height 160 cm Height 63 in Weight 84.6 kg Weight 186.12 lb BMI 33.05 What to do next Scheduled Follow-Up Appointments Tuesday 10:45 AM EDT With: Leandro BILL MD Where: [facility] Invalid Interpretation Code Personal history of colonic polyps [facility] NITHYA VASQUES ([id number]) 1965 F Date Time Provider Department 01/04/23 YAS WALL GASTA5 During your visit today, we recorded the following information about you: Constanza Corona RN 01/04/2023 3:19 PM Signed Received the following [employer] message: Dr. Paradise Ortiz wanted to see lab results in 4 months Constanza Corona RN January 04, 2023 3:18 PM Constanza Corona RN 01/05/2023 7:53 AM Signed She sent another nessage that she had labs completed. Constanza Corona RN January 05, 2023 7:53 AM Yas Wall MD 01/05/2023 8:30 AM Signed Lew Can you please return the call, and let the patient know: Labs scanned in yest - alk phos 166, but LFts otherwise were normal Not really much improvement, but I would probably give it another 3 months before deciding on utility of increased dose of ocaliva (I think she just started on incr dose malathi in October) Thanks Constanza Corona RN 01/05/2023 10:[address] Rivera response sent via [employer] original [employer] message. Constanza Corona RN January 05, 2023 10:00 AM Allergies As of Date: 01/04/2023 Noted Allergy Reaction RIFAMPIN 06/15/2006 2 - Rash 9 - Itching SULFA (SULFONAMIDE ANTIBIOTICS) 09/18/2019 14 - Other: See Comments Date Reviewed: 01/21/2021 Reviewed by: Jonh Forde - Fully Assessed Reason for Visit: Orders [681] Prescriptions as of 01/05/2023 - alendronate (FOSAMAX) 70 mg tablet TAKE 1 TABLET BY MOUTH ONCE EVERY WEEK. TAKE WITH FULL GLASS OF WATER IN THE MORNING ON AN EMPTY STOMACH. DO NOT LIE DOWN FOR 30 MINUTES - fenofibrate nanocrystallized (TRICOR) 145 mg tablet TAKE 1 TABLET BY MOUTH EVERY DAY - Ursodiol 500 mg tablet TK 1 T PO TID WF - levothyroxine (SYNTHROID) 150 mcg tablet Take 1 tablet by mouth once daily. But skip Saturdays and Sundays (so total 5 tablets per week) - MULTIVITAMIN ORAL Take 1 tablet by mouth once daily. - ergocalciferol 50,000 unit capsule (VITAMIN D2, DRISDOL) TK 1 C PO TWICE A WEEK ON TUESDAY AND TUESDAY - CLOBETASOL 0.05 % OINTMENT Apply to affected area(s) twice daily PRN itch Problem List As Of Date 01/04/2023 Noted Resolved DERMATITIS NOS [L25.9] 10/30/2006 PRURITIC DISORDER NOS [L29.9] 10/30/2006 Primary biliary cirrhosis (HCC) [K74.3] 01/21/2021 History of fracture [Z87.81] 01/21/2021 Loss of height [R29.890] 01/21/2021 Positive MIRACLE (antinuclear antibody) [R76.8] 01/21/2021 Centromere antibody positive [R76.8] 01/21/2021 Encounter Status:Closed by CONSTANZA CORONA on 01/04/23 [facility] 01-01-2023 Albumin [Mass/Vol] 3.6 g/dL Normal 3.4-5.[address] [facility] Comment on above: Performed By: #### L IVER #### [facility] [address] [place] [address] Dr. Sincere Wood Albumin/Globulin [Mass ratio] 0.9 {ratio} Normal [facility] Comment on above: Performed By: #### L IVER #### [facility] [address] [place] [address] Dr. Sincere Wood ALP [Catalytic activity/Vol] 166 U/L Critically high 46-116 [facility] Comment on above: Performed By: #### L IVER #### [facility] [address] [place] [address] Dr. Sincere Wood ALT [Catalytic activity/Vol] 49 U/L Normal 14-59 [facility] Comment on above: Performed By: #### L IVER #### [facility] [address] [place] [address] Dr. Sincere Wood AST [Catalytic activity/Vol] 27 U/L Normal 15-37 [facility] Comment on above: Performed By: #### L IVER #### [facility] [address] [place] [address] Dr. Sincere Wood BILI, CONJUGATED 0.1 mg/dL Normal 0.0-0.2 [facility] Comment on above: Performed By: #### L IVER #### [facility] [address] [place] [address] Dr. Sincere Wood Bilirubin [Mass/Vol] 0.3 mg/dL Normal 0.2-1.0 [facility] Comment on above: Performed By: #### L IVER #### [facility] [address] [place] [address] Dr. Sincere Wood Globulin (S) [Mass/Vol] 4.0 g/dL Normal [facility] Comment on above: Performed By: #### L IVER #### [facility] [address] [place] [address] Dr. Sincere Wood Protein [Mass/Vol] 7.6 g/dL Normal 6.4-8.2 [facility] Comment on above: Performed By: #### L IVER #### [facility] [address] [place] [address] Dr. Sincere Wood MMR IMMUNITYon 11-24-2022 Mumps Abs, IgG 19.7 AU/mL Normal Immune >10.9 [facility] Comment on above: Result Comment: Nega tive <9.0 Equivocal 9.0 - 10.9 Positive >10.9 A positive result generally indicates past exposure to Mumps virus or previous vaccination. Performed By: #### M MRIMMU #### [facility] [address] [place] [address] Dr. Sincere Wood Rubella Antibodies, IgG <0.90 Critically low Immune >0.99 [facility] Comment on above: Result Comment: Non- immune <0.90 Equivocal 0.90 - 0.99 Immune >0.99 Performed By: #### M MRIMMU #### [facility] [address] [place] [address] Dr. Sincere Wood Rubeola Ab, IgG 23.4 AU/mL Normal Immune >16.4 [facility] Comment on above: Result Comment: Nega tive <13.5 Equivocal 13.5 - 16.4 Positive >16.4 Presence of antibodies to Rubeola is presumptive evidence of immunity except when acute infection is suspected. Performed By: #### M MRIMMU #### [facility] [address] [place] [address] Dr. Sincere Wood FREE T3on 10-26-2022 FREE T3 1.72 pg/mlL Critically low 2.18-3.98 [facility] Comment on above: Performed By: #### E STRADI #### [facility] [address] [place] [address] Dr. Sincere Wood FREE T4on 10-26-2022 Free T4 [Mass/Vol] 1.62 ng/dL Critically high 0.76-1.46 [facility] Comment on above: Performed By: #### F T4 #### [facility] [address] [place] [address] Dr. Sincere Wood TSHon 10-26-2022 TSH 3.966 uIU/mL Critically high 0.358-3.[address] [facility] Comment on above: Performed By: #### E STRADI #### [facility] [address] [place] [address] Dr. Sincere Wood Lab Reportson 10-06-2022 Lab Reports [id number] #1.00CD:127 Normal [facility] ESTRADIOLon 09-23-2022 Estradiol 10.5 pg/mL Normal [facility] Comment on above: Result Comment: Adul t Female: Follicular phase 12.5 - 166.0 Ovulation phase 85.8 - 498.0 Luteal phase 43.8 - 211.0 Postmenopausal <6.0 - 54.7 1st trimester 215.0 - >4300.0 Ana ECLIA methodology Performed By: #### E STRADI #### [facility] [address] [place] [address] Dr. Sincere Wood FSHon 09-23-2022 FSH 56.5 mIU/mL Normal [facility] Comment on above: Result Comment: Adul t Female: Follicular phase 3.5 - 12.5 Ovulation phase 4.7 - 21.5 Luteal phase 1.7 - 7.7 Postmenopausal 25.8 - 134.8 Performed By: #### E STRADI #### [facility] [address] [place] [address] Dr. Sincere Wood TESTOSTERONE, TOTALon 2021 Testosterone [Mass/Vol] 20 ng/dL Normal 4-50 [facility] Comment on above: Performed By: #### E STRADI #### [facility] [address] [place] [address] Dr. Sincere Wood CBC AUTO DIFFon 09-22-2022 BASO # 0.0 103/ul Normal 0.0-0.1 [facility] Comment on above: Performed By: #### C BC #### [facility] [address] [place] [address] Dr. Sincere Wood Basophils/100 WBC (Bld) 0.5 % Normal 0.2-2.0 [facility] Comment on above: Performed By: #### C BC #### [facility] [address] [place] [address] Dr. Sincere Wood EO # 0.2 103/ul Normal 0.0-0.7 [facility] Comment on above: Performed By: #### C BC #### [facility] [address] [place] [address] Dr. Sincere Wood Eosinophils/100 WBC (Bld) 3.4 % Normal 0.9-7.0 [facility] Comment on above: Performed By: #### C BC #### [facility] [address] [place] [address] Dr. Sincere Wood Erythrocyte distribution width (RBC) [Ratio] 12.3 % Normal 11.0-15.0 [facility] Comment on above: Performed By: #### C BC #### [facility] [address] [place] [address] Dr. Sincere Wood Hematocrit (Bld) [Volume fraction] 36.8 % Normal 36.0-48.0 [facility] Comment on above: Performed By: #### C BC #### [facility] [address] [place] [address] Dr. Sincere Wood Hemoglobin (Bld) [Mass/Vol] 12.3 g/dL Normal 12.0-16.0 [facility] Comment on above: Performed By: #### C BC #### [facility] [address] [place] [address] Dr. Sincere Wood IG # 0.02 10e3/ul Normal 0.00-0.03 [facility] Comment on above: Performed By: #### C BC #### [facility] [address] [place] [address] Dr. Sincere Wood IG % 0.4 % Normal 0.0-0.5 [facility] Comment on above: Performed By: #### C BC #### [facility] [address] [place] [address] Dr. Sincere Wood LYMPH # 2.2 103/ul Normal 1.2-3.8 [facility] Comment on above: Performed By: #### C BC #### [facility] [address] [place] [address] Dr. Sincere Wood Lymphocytes/100 WBC (Bld) 38.4 % Normal 20.5-60.0 [facility] Comment on above: Performed By: #### C BC #### [facility] [address] [place] [address] Dr. Sincere Wood MANUAL DIFF REQ NO Normal [facility] Comment on above: Performed By: #### C BC #### [facility] [address] [place] [address] Dr. Sincere Wood MCH (RBC) [Entitic mass] 29.6 pg Normal 26.7-34.0 [facility] Comment on above: Performed By: #### C BC #### [facility] [address] [place] [address] Dr. Sincere Wood MCHC (RBC) [Mass/Vol] 33.4 g/dL Normal 29.9-35.2 [facility] Comment on above: Performed By: #### C BC #### [facility] [address] [place] [address] Dr. Sincere Wood MCV (RBC) [Entitic vol] 88.7 fL Normal 81.0-99.0 [facility] Comment on above: Performed By: #### C BC #### [facility] [address] [place] [address] Dr. Sincere Wood MONO # 0.5 103/ul Normal 0.3-0.8 [facility] Comment on above: Performed By: #### C BC #### [facility] [address] [place] [address] Dr. Sincere Wood Monocytes/100 WBC (Bld) 9.1 % Normal 1.7-12.0 [facility] Comment on above: Performed By: #### C BC #### [facility] [address] [place] [address] Dr. Sincere Wood NEUT # 2.7 103/ul Normal 1.4-6.5 [facility] Comment on above: Performed By: #### C BC #### [facility] [address] [place] [address] Dr. Sincere Wood Neutrophils/100 WBC (Bld) 48.2 % Normal 43.0-75.0 [facility] Comment on above: Performed By: #### C BC #### [facility] [address] [place] [address] Dr. Sincere Wood Platelet mean volume (Bld) [Entitic vol] 10.0 fL Normal 9.5-13.5 [facility] Comment on above: Performed By: #### C BC #### [facility] [address] [place] [address] Dr. Sincere Wood PLT 302 103/ul Normal 150-450 [facility] Comment on above: Performed By: #### C BC #### [facility] [address] [place] [address] Dr. Sincere Wood RBC 4.15 106/ul Critically low 4.20-5.40 [facility] Comment on above: Performed By: #### C BC #### [facility] [address] [place] [address] Dr. Sincere Wood WBC 5.6 103/ul Normal 4.0-11.0 [facility] Comment on above: Performed By: #### C BC #### [facility] [address] [place] [address] Dr. Sincere Wood PROF 14(COMP METB)on 022 Albumin [Mass/Vol] 3.6 g/dL Normal 3.4-5.[address] [facility] Comment on above: Performed By: #### C MP #### [facility] [address] [place] [address] Dr. Sincere Wood Albumin/Globulin [Mass ratio] 0.9 {ratio} Normal [facility] Comment on above: Performed By: #### C MP #### [facility] [address] [address] [address] Sincere Wood ALP [Catalytic activity/Vol] 153 U/L Critically high 46-116 [facility] Comment on above: Performed By: #### C MP #### [facility] [address] [address] [address] Sincere Wood ALT [Catalytic activity/Vol] 53 U/L Normal 14-59 [facility] Comment on above: Performed By: #### C MP #### [facility] [address] [address] [address] Sincere Wood Anion gap [Moles/Vol] 11.6 mmol/L Normal [facility] Comment on above: Performed By: #### C MP #### [facility] [address] [place] [address] Dr. Sincere Wood AST [Catalytic activity/Vol] 30 U/L Normal 15-37 [facility] Comment on above: Performed By: #### C MP #### [facility] [address] [place] [address] Dr. Sincere Wood Bilirubin [Mass/Vol] 0.3 mg/dL Normal 0.2-1.0 [facility] Comment on above: Performed By: #### C MP #### [facility] [address] [place] [address] Dr. Sincere Wood Calcium [Mass/Vol] 9.1 mg/dL Normal 8.5-10.[address] [facility] Comment on above: Performed By: #### C MP #### [facility] [address] [place] [address] Dr. Sincere Wood Chloride [Moles/Vol] 102 mmol/L Normal 98-107 [facility] Comment on above: Performed By: #### C MP #### [facility] [address] [place] [address] Dr. Sincere Wood CO2 [Moles/Vol] 28.6 mmol/L Normal 21.0-32.0 [facility] Comment on above: Performed By: #### C MP #### [facility] [address] [address] [address] Sincere Wood Creatinine [Mass/Vol] 0.85 mg/dL Normal 0.55-1.02 [facility] Comment on above: Performed By: #### C MP #### [facility] [address] [address] [address] Sincere Wood EGFR-AF TOGOLESE >60 Normal >=60 [facility] Comment on above: Performed By: #### C MP #### [facility] [address] [address] [address] Sincere Wood EGFR-NON AF TOGOLESE >60 Normal >=60 [facility] Comment on above: Performed By: #### C MP #### [facility] [address] [place] [address] Dr. Sincere Wood Globulin (S) [Mass/Vol] 4.0 g/dL Normal [facility] Comment on above: Performed By: #### C MP #### [facility] [address] [place] [address] Dr. Sincere Wood Glucose [Mass/Vol] 89 mg/dL Normal 74-106 [facility] Comment on above: Performed By: #### C MP #### [facility] [address] [place] [address] Dr. Sincere Wood Potassium [Moles/Vol] 4.2 mmol/L Normal 3.5-5.1 [facility] Comment on above: Performed By: #### C MP #### [facility] [address] [place] [address] Dr. Sincere Wood Protein [Mass/Vol] 7.6 g/dL Normal 6.4-8.2 [facility] Comment on above: Performed By: #### C MP #### [facility] [address] [place] [address] Dr. Sincere Wood Sodium [Moles/Vol] 138 mmol/L Normal 136-145 [facility] Comment on above: Performed By: #### C MP #### [facility] [address] [place] [address] Dr. Sincere Wood Urea nitrogen [Mass/Vol] 16.0 mg/dL Normal 7.0-18.0 [facility] Comment on above: Performed By: #### C MP #### [facility] [address] [place] [address] Dr. Sincere Wood Urea nitrogen/Creatinine [Mass ratio] 18.8 mg/mg Normal [facility] Comment on above: Performed By: #### C MP #### [facility] [address] [place] [address] Dr. Sincere Wood PROF 14(COMP METB)on 022 Albumin [Mass/Vol] 3.6 g/dL Normal 3.4-5.[address] [facility] Comment on above: Performed By: #### C MP #### [facility] [address] [place] [address] Dr. Sincere Wood Albumin/Globulin [Mass ratio] 0.9 {ratio} Normal [facility] Comment on above: Performed By: #### C MP #### [facility] [address] [place] [address] Dr. Sincere Wood ALP [Catalytic activity/Vol] 138 U/L Critically high 46-116 [facility] Comment on above: Performed By: #### C MP #### [facility] [address] [place] [address] Dr. Sincere Wood ALT [Catalytic activity/Vol] 46 U/L Normal 14-59 [facility] Comment on above: Performed By: #### C MP #### [facility] [address] [place] [address] Dr. Sincere Wood Anion gap [Moles/Vol] 13.4 mmol/L Normal [facility] Comment on above: Performed By: #### C MP #### [facility] [address] [place] [address] Dr. Sincere Wood AST [Catalytic activity/Vol] 35 U/L Normal 15-37 [facility] Comment on above: Performed By: #### C MP #### [facility] [address] [place] [address] Dr. Sincere Wood Bilirubin [Mass/Vol] 0.4 mg/dL Normal 0.2-1.0 [facility] Comment on above: Performed By: #### C MP #### [facility] [address] [place] [address] Dr. Sincere Wood Calcium [Mass/Vol] 9.1 mg/dL Normal 8.5-10.[address] [facility] Comment on above: Performed By: #### C MP #### [facility] [address] [place] [address] Dr. Sincere Wood Chloride [Moles/Vol] 105 mmol/L Normal 98-107 [facility] Comment on above: Performed By: #### C MP #### [facility] [address] [place] [address] Dr. Sincere Wood CO2 [Moles/Vol] 26.2 mmol/L Normal 21.0-32.0 [facility] Comment on above: Performed By: #### C MP #### [facility] [address] [place] [address] Dr. Sincere Wood Creatinine [Mass/Vol] 0.76 mg/dL Normal 0.55-1.02 [facility] Comment on above: Performed By: #### C MP #### [facility] [address] [place] [address] Dr. Sincere Wood EGFR-AF TOGOLESE >60 Normal >=60 [facility] Comment on above: Performed By: #### C MP #### [facility] [address] [place] [address] Dr. Sincere Wood EGFR-NON AF TOGOLESE >60 Normal >=60 [facility] Comment on above: Performed By: #### C MP #### [facility] [address] [place] [address] Dr. Sincere Wood Globulin (S) [Mass/Vol] 4.0 g/dL Normal [facility] Comment on above: Performed By: #### C MP #### [facility] [address] [place] [address] Dr. Sincere Wood Glucose [Mass/Vol] 103 mg/dL Normal 74-106 [facility] Comment on above: Performed By: #### C MP #### [facility] [address] [address] [address] Sincere Wood Potassium [Moles/Vol] 4.6 mmol/L Normal 3.5-5.1 [facility] Comment on above: Performed By: #### C MP #### [facility] [address] [address] [address] Sincere Wood Protein [Mass/Vol] 7.6 g/dL Normal 6.4-8.[address] [facility] Comment on above: Performed By: #### C MP #### [facility] [address] [address] [address] Sincere Wood Sodium [Moles/Vol] 140 mmol/L Normal 136-[address] [facility] Comment on above: Performed By: #### C MP #### [facility] [address] [address] [address] Sincere Wood Urea nitrogen [Mass/Vol] 21.0 mg/dL Critically high 7.0-18.0 [facility] Comment on above: Performed By: #### C MP #### [facility] [address] [address] [address] Sincere Wood Urea nitrogen/Creatinine [Mass ratio] 27.6 mg/mg Normal [facility] Comment on above: Performed By: #### C MP #### [facility] [address] [address] [address] Sincere Wood SCREENING MAMMOGRAM W/PRINCE, BILATERAL*on 03-29-2022 SCREENING MAMMOGRAM W/PRINCE, BILATERAL* CLINICAL HISTORY: Screening Mammogram COMPARISON: Priors from 2020, 2019, 2018, 2018 TECHNIQUE: 2D and 3D mammogram imaging of both breasts was performed. RESULT: DENSITY: There are scattered areas of fibroglandular density. There is no suspicious mass, asymmetry, architectural distortion, or calcification. No significant change since the prior mammograms. IMPRESSION: BIRADS 1 : NEGATIVE, NORMAL INTERVAL FOLLOW UP FOLLOW-UP: 12 months DENSITY: Scattered MAMMOGRAPHY IS VERY IMPORTANT TO YOUR HEALTH. THE CURRENT [place]LE[employer] OF RADIOLOGY AND NATIONAL COMPREHENSIVE [employer] NETWORK GUIDELINES RECOMMENDS ANNUAL MAMMOGRAPHY BEGINNING AT AGE 40 THIS FACILITY USES A REMINDER SYSTEM TO ENSURE ALL PATIENTS RECEIVE REMINDER NOTIFICATIONS AT THE APPROPRIATE TIME BASED ON THE RECOMMENDATIONS OF THIS EXAM. Board Certified Radiologist. Accredited by the ACR and FDA. Report reported and signed by Davian Lewis on 03/29/2022 1139 Normal [facility] Specialist CBC AUTO DIFFon 02-18-2022 BASO # 0.0 103/ul Normal 0.0-0.1 [facility] Comment on above: Performed By: #### C BC #### [facility] [address] [place] [address] Dr. Sincere Wood Basophils/100 WBC (Bld) 0.7 % Normal 0.2-2.0 [facility] Comment on above: Performed By: #### C BC #### [facility] [address] [place] [address] Dr. Sincere Wood EO # 0.2 103/ul Normal 0.0-0.7 [facility] Comment on above: Performed By: #### C BC #### [facility] [address] [place] [address] Dr. Sincere Wood Eosinophils/100 WBC (Bld) 3.1 % Normal 0.9-7.0 [facility] Comment on above: Performed By: #### C BC #### [facility] [address] [place] [address] Dr. Sincere Wood Erythrocyte distribution width (RBC) [Ratio] 13.0 % Normal 11.0-15.0 [facility] Comment on above: Performed By: #### C BC #### [facility] [address] [place] [address] Dr. Sincere Wood Hematocrit (Bld) [Volume fraction] 38.8 % Normal 36.0-48.0 [facility] Comment on above: Performed By: #### C BC #### [facility] [address] [place] [address] Dr. Sincere Wood Hemoglobin (Bld) [Mass/Vol] 12.2 g/dL Normal 12.0-16.0 [facility] Comment on above: Performed By: #### C BC #### [facility] [address] [place] [address] Dr. Sincere Wood IG # 0.03 10e3/ul Normal 0.00-0.03 [facility] Comment on above: Performed By: #### C BC #### [facility] [address] [place] [address] Dr. Sincere Wood IG % 0.5 % Normal 0.0-0.5 [facility] Comment on above: Performed By: #### C BC #### [facility] [address] [place] [address] Dr. Sincere Wood LYMPH # 1.9 103/ul Normal 1.2-3.8 [facility] Comment on above: Performed By: #### C BC #### [facility] [address] [place] [address] Dr. Sincere Wood Lymphocytes/100 WBC (Bld) 34.4 % Normal 20.5-60.0 [facility] Comment on above: Performed By: #### C BC #### [facility] [address] [place] [address] Dr. Sincere Wood MANUAL DIFF REQ NO Normal [facility] Comment on above: Performed By: #### C BC #### [facility] [address] [place] [address] Dr. Sincere Wood MCH (RBC) [Entitic mass] 30.1 pg Normal 26.7-34.0 [facility] Comment on above: Performed By: #### C BC #### [facility] [address] [place] [address] Dr. Sincere Wood MCHC (RBC) [Mass/Vol] 31.4 g/dL Normal 29.9-35.2 [facility] Comment on above: Performed By: #### C BC #### [facility] [address] [place] [address] Dr. Sincere Wood MCV (RBC) [Entitic vol] 95.8 fL Normal 81.0-99.0 [facility] Comment on above: Performed By: #### C BC #### [facility] [address] [place] [address] Dr. Sincere Wood MONO # 0.5 103/ul Normal 0.3-0.8 [facility] Comment on above: Performed By: #### C BC #### [facility] [address] [address] [address] Sincere Wood Monocytes/100 WBC (Bld) 8.8 % Normal 1.7-12.0 [facility] Comment on above: Performed By: #### C BC #### [facility] [address] [address] [address] Sincere Wood NEUT # 2.9 103/ul Normal 1.4-6.5 [facility] Comment on above: Performed By: #### C BC #### [facility] [address] [address] [address] Sincere Wood Neutrophils/100 WBC (Bld) 52.5 % Normal 43.0-75.0 [facility] Comment on above: Performed By: #### C BC #### [facility] [address] [address] [address] Sincere Wood Platelet mean volume (Bld) [Entitic vol] 10.8 fL Normal 9.5-13.5 [facility] Comment on above: Performed By: #### C BC #### [facility] [address] [address] [address] Sincere Wood PLT 289 103/ul Normal 150-450 [facility] Comment on above: Performed By: #### C BC #### [facility] [address] [address] [address] Sincere Wood RBC 4.05 106/ul Critically low 4.20-5.40 [facility] Comment on above: Performed By: #### C BC #### [facility] [address] [address] [address] Sincere Wood WBC 5.6 103/ul Normal 4.0-11.0 [facility] Comment on above: Performed By: #### C BC #### [facility] [address] [place] [address] Dr. Sincere Wood GLYCOHEMOGLOBIN A1Con 2021 ADA RECOMMENDATION SEE BELOW Normal [facility] Comment on above: Result Comment: ADA RECOMMENDED LIMIT 4.0 - 6.0 ADA THERAPEUTIC TARGET < 7.0 ACTION SUGGESTED > 7.0 Performed By: #### A 1C #### [facility] [address] [place] [address] Dr. Sincere Wood Glucose [Mass/Vol] 117 mg/dL Normal [facility] Comment on above: Performed By: #### A 1C #### [facility] [address] [place] [address] Dr. Sincere Wood HbA1c (Bld) [Mass fraction] 5.7 % Normal 4.5-6.2 [facility] Comment on above: Performed By: #### A 1C #### [facility] [address] [place] [address] Dr. Sincere Wood PROF 14(COMP METB)on 022 Albumin [Mass/Vol] 3.4 g/dL Normal 3.4-5.[address] [facility] Comment on above: Performed By: #### C MP #### [facility] [address] [place] [address] Dr. Sincere Wood Albumin/Globulin [Mass ratio] 0.8 {ratio} Normal [facility] Comment on above: Performed By: #### C MP #### [facility] [address] [place] [address] Dr. Sincere Wood ALP [Catalytic activity/Vol] 150 U/L Critically high 46-116 [facility] Comment on above: Performed By: #### C MP #### [facility] [address] [place] [address] Dr. Sincere Wood ALT [Catalytic activity/Vol] 85 U/L Critically high 14-59 [facility] Comment on above: Performed By: #### C MP #### [facility] [address] [address] [address] Sincere Wood Anion gap [Moles/Vol] 11.4 mmol/L Normal [facility] Comment on above: Performed By: #### C MP #### [facility] [address] [place] [address] Dr. Sincere Wood AST [Catalytic activity/Vol] 46 U/L Critically high 15-37 [facility] Comment on above: Performed By: #### C MP #### [facility] [address] [address] [address] Sincere Wood Bilirubin [Mass/Vol] 0.3 mg/dL Normal 0.2-1.0 [facility] Comment on above: Performed By: #### C MP #### [facility] [address] [address] [address] Sincere Wood Calcium [Mass/Vol] 8.9 mg/dL Normal 8.5-10.[address] [facility] Comment on above: Performed By: #### C MP #### [facility] [address] [address] [address] Sincere Wood Chloride [Moles/Vol] 104 mmol/L Normal 98-107 [facility] Comment on above: Performed By: #### C MP #### [facility] [address] [address] [address] iSncere Wood CO2 [Moles/Vol] 28.6 mmol/L Normal 21.0-32.0 [facility] Comment on above: Performed By: #### C MP #### [facility] [address] [address] [address] Sincere Wood Creatinine [Mass/Vol] 0.69 mg/dL Normal 0.55-1.02 [facility] Comment on above: Performed By: #### C MP #### [facility] [address] [address] [address] Sincere Wood EGFR-AF TOGOLESE >60 Normal >=60 [facility] Comment on above: Performed By: #### C MP #### [facility] [address] [address] [address] Sincere Wood EGFR-NON AF TOGOLESE >60 Normal >=60 [facility] Comment on above: Performed By: #### C MP #### [facility] [address] [address] [address] Sincere Wood Globulin (S) [Mass/Vol] 4.1 g/dL Normal [facility] Comment on above: Performed By: #### C MP #### [facility] [address] [address] [address] Sincere Wood Glucose [Mass/Vol] 96 mg/dL Normal 74-106 [facility] Comment on above: Performed By: #### C MP #### [facility] [address] [address] [address] Sincere Wood Potassium [Moles/Vol] 4.0 mmol/L Normal 3.5-5.1 [facility] Comment on above: Performed By: #### C MP #### [facility] [address] [address] [address] Sincere Wood Protein [Mass/Vol] 7.5 g/dL Normal 6.4-8.2 [facility] Comment on above: Performed By: #### C MP #### [facility] [address] [address] [address] Sincere Wood Sodium [Moles/Vol] 140 mmol/L Normal 136-[address] [facility] Comment on above: Performed By: #### C MP #### [facility] [address] [address] [address] Sincere Wood Urea nitrogen [Mass/Vol] 19.0 mg/dL Critically high 7.0-18.0 [facility] Comment on above: Performed By: #### C MP #### [facility] [address] [address] [address] Sincere Wood Urea nitrogen/Creatinine [Mass ratio] 27.5 mg/mg Normal [facility] Comment on above: Performed By: #### C MP #### [facility] [address] [address] [address] Sincere Wood Free T3on 11-09-2021 FT3 2.72 pg/mL Normal 2.00-4.40 [facility] Comment on above: Performed By: #### F T4, TSH, VITD, FT3 #### [facility] [address] [place], [place] [id number] Free T4on 11-09-2021 Free T4 [Mass/Vol] 1.50 ng/dL Normal 0.80-1.80 [facility] Comment on above: Performed By: #### F T4, TSH, VITD, FT3 #### [facility] [address] [place], [place] [id number] TSHon 11-09-2021 TSH 0.298 uIU/mL Low 0.400-4.500 [facility] Comment on above: Performed By: #### F T4, TSH, VITD, FT3 #### [facility] [address] [facility] [facility] [place] [id number] Vitamin D 25-OHon 11-09-2021 VIT D 25 OH 53 ng/ml Normal >29 [facility] Comment on above: Result Comment: Bernie min D Status Deficiency <20 ng/mL Insufficiency 20-29 ng/mL Optimal 30-100 ng/mL Possible Toxicity >=150 ng/mL Performed By: #### F T4, TSH, VITD, FT3 #### [facility] [address] [facility] [facility] [place] [id number] Vital Signs Date Time Vital Sign Value Performing Clinician Facility 10-06-2023 14:50-0500 Diastolic blood pressure 67 mm[Hg] Vance Baires MD Work Phone: [facility] 10-06-2023 14:50-0500 Heart rate 81 /min Vance Baires MD Work Phone: [facility] 10-06-2023 14:50-0500 Respiratory rate 17 /min Vance Baires MD Work Phone: [facility] 10-06-2023 14:50-0500 SaO2% (BldA) [Mass fraction] 97 % Vance Baires MD Work Phone: [facility] 10-06-2023 14:50-0500 Systolic blood pressure 105 mm[Hg] Vance Baires MD Work Phone: [facility] 10-06-2023 14:20-0500 Body temperature 96.69 [degF] Vance Baires MD Work Phone: [facility] 10-06-2023 12:12-0500 Body height 160 cm Vance Baires MD Work Phone: [facility] 10-06-2023 12:12-0500 Body mass index (BMI) [Ratio] 31.53 kg/m2 Vance Baires MD Work Phone: [facility] 10-06-2023 12:12-0500 Body weight 80.74 kg Vance Baires MD Work Phone: [facility] 09-21-2023 10:36-0500 Body mass index (BMI) [Ratio] 32.65 kg/m2 Hermes Caballero RESIDENTIAL APPLIANCE REPAIR TECHNICIAN-PORTRAIT PAINTER Work Phone: [facility] 09-21-2023 10:36-0500 Body temperature 98.1 [degF] Hermes Caballero RESIDENTIAL APPLIANCE REPAIR TECHNICIAN-PORTRAIT PAINTER Work Phone: [facility] 09-21-2023 10:36-0500 Body weight 83.6 kg Hermes Caballero RESIDENTIAL APPLIANCE REPAIR TECHNICIAN-PORTRAIT PAINTER Work Phone: [facility] 09-21-2023 10:36-0500 Diastolic blood pressure 69 mm[Hg] Hermes Caballero RESIDENTIAL APPLIANCE REPAIR TECHNICIAN-PORTRAIT PAINTER Work Phone: [facility] 09-21-2023 10:36-0500 Heart rate 85 /min Hermes Caballero RESIDENTIAL APPLIANCE REPAIR TECHNICIAN-PORTRAIT PAINTER Work Phone: [facility] 09-21-2023 10:36-0500 Respiratory rate 16 /min Hermes Caballero RESIDENTIAL APPLIANCE REPAIR TECHNICIAN-PORTRAIT PAINTER Work Phone: [facility] 09-21-2023 10:36-0500 SaO2% (BldA) [Mass fraction] 98 % Hermes Caballero RESIDENTIAL APPLIANCE REPAIR TECHNICIAN-PORTRAIT PAINTER Work Phone: [facility] 09-21-2023 10:36-0500 Systolic blood pressure 101 mm[Hg] Hermes Caballero RESIDENTIAL APPLIANCE REPAIR TECHNICIAN-PORTRAIT PAINTER Work Phone: [facility] 05-12-2023 13:45-0400 Blood Pressure Location [facility] 05-12-2023 13:45-0400 Body temperature 97.88 [degF] Reeves SALAM [facility] 05-12-2023 13:45-0400 Diastolic blood pressure 75 mm[Hg] Reeves SALAM [facility] 05-12-2023 13:45-0400 Heart rate 69 /min Reeves SALAM [facility] 05-12-2023 13:45-0400 Respiratory rate 16 /min Reeves SALAM [facility] 05-12-2023 13:45-0400 Systolic blood pressure 111 mm[Hg] Reeves SALAM [facility] 01-12-2023 10:45-0400 Blood Pressure Location Reeves SALAM [facility] 01-12-2023 10:45-0400 Diastolic blood pressure 86 mm[Hg] Reeves SALAM [facility] 01-12-2023 10:45-0400 Heart rate 75 /min Reeves SALAM [facility] 01-12-2023 10:45-0400 Respiratory rate 16 /min Reeves SALAM [facility] 01-12-2023 10:45-0400 Systolic blood pressure 124 mm[Hg] Reeves SALAM [facility] 05-13-2022 13:18-0400 Blood Pressure Location Reeves SALAM [facility] 05-13-2022 13:18-0400 Diastolic blood pressure 76 mm[Hg] Reeves SALAM [facility] 05-13-2022 13:18-0400 Heart rate 68 /min Reeves SALAM [facility] 05-13-2022 13:18-0400 Respiratory rate 16 /min Reeves SALAM [facility] 05-13-2022 13:18-0400 Systolic blood pressure 110 mm[Hg] Reeves SALAM [facility] Encounters Encounter Date Encounter Type Care Provider Facility Start: 01-18-2024 ambulatory [facility] Facility: [facility] Start: 11-14-2023 ambulatory [facility] Facility: [facility] Start: 10-06-2023 End: 10-06-2023 Subsequent hospital visit by physician Vance Baires MD Work Phone: [facility] Comment on above: BRCA positive; Primary biliary cholangitis (CMS/HCC); Familial malignant neoplasm of pancreas (CMS/HCC) Start: 10-05-2023 End: 10-05-2023 Phys/qhp telephone evaluation 21-30 min Vance Baires MD Work Phone: [facility] Comment on above: BRCA positive (Prima ry Dx); Primary biliary cholangitis (CMS/HCC); Familial malignant neoplasm of pancreas (CMS/HCC) Start: 09-21-2023 End: 09-22-2023 ambulatory HERMES CABALLERO [facility] Start: 09-21-2023 End: 09-21-2023 Office outpatient new 30 minutes Hermes Caballero RESIDENTIAL APPLIANCE REPAIR TECHNICIAN-PORTRAIT PAINTER Work Phone: [facility] Comment on above: BRCA positive (Prima ry Dx) Start: 09-08-2023 ambulatory [facility] Start: 09-06-2023 End: 09-06-2023 ambulatory [facility] Start: 08-09-2023 End: 08-10-2023 ambulatory [facility] Start: 05-12-2023 End: 05-13-2023 ambulatory GRAVES BRANT Facility:[facility] Start: 05-12-2023 End: 05-12-2023 Patient encounter procedure [facility] Start: 05-05-2023 Telephone encounter Yas Cardenas MD Work Phone: Gastroenterology Comment on above: Results Start: 04-20-2023 End: 04-20-2023 ambulatory GRAVES ETSEFANIACOMariam Facility:[facility] Start: 04-20-2023 End: 04-20-2023 Patient encounter procedure YAS WALL [facility] Start: 2023 Telephone encounter Yas Cardenas MD Work Phone: Gastroenterology Comment on above: Results Start: 04-06-2023 End: 04-06-2023 ambulatory Yas Wall MD Work Phone: Gastroenterology Comment on above: Fibroscan (ultrasoun d) Primary biliary chol angitis (HCC) (Primary Dx) Start: 04-06-2023 End: 04-06-2023 Telemedicine consultation with patient Yas Wall MD Work Phone: [facility] Start: 02-03-2023 End: 02-04-2023 ambulatory [facility] Facility:[facility] Start: 02-03-2023 End: 02-03-2023 Patient encounter procedure Leandro ALEMANAM [facility] Start: 01-12-2023 End: 01-13-2023 ambulatory [facility] Facility:[facility] Start: 01-12-2023 End: 01-12-2023 Patient encounter procedure Leandro BILL [facility] Start: 01-04-2023 Telephone encounter Yas Cardenas MD Work Phone: Gastroenterology Comment on above: Orders Start: 01-01-2023 End: 01-02-2023 ambulatory REEVES SALAM Facility:[facility] Start: 11-23-2022 End: 11-24-2022 ambulatory GRAVES H FAWWAD Facility:[facility] Start: 10-26-2022 End: 10-27-2022 ambulatory GRAVES H FAWWAD Facility:[facility] Start: 10-11-2022 End: 10-11-2022 ambulatory Yas Wall MD Work Phone: Gastroenterology Comment on above: Primary biliary chol angitis (HCC) (Primary Dx) Start: 10-11-2022 End: 10-11-2022 Telemedicine consultation with patient Yas Wall MD Work Phone: [facility] Start: 09-22-2022 End: 09-23-2022 ambulatory GRAVES H FAWWAD Facility:[facility] Start: 05-13-2022 End: 05-13-2022 Patient encounter procedure Leandro BILL [facility] Start: 05-07-2022 End: 05-08-2022 ambulatory SHAIKH Nirali GUO Facility:[facility] Start: 03-03-2022 End: 03-03-2022 ambulatory Yas Wall MD Work Phone: Gastroenterology Comment on above: Primary biliary chol angitis (HCC) Start: 03-03-2022 End: 03-03-2022 Telemedicine consultation with patient Yas Wall MD Work Phone: [facility] Start: 03-02-2022 Telephone encounter Shwetha Rodas (Pss) Gastroenterology Comment on above: Appointment Start: 02-18-2022 End: 02-19-2022 ambulatory SHAIKH Nirali GUO Facility:[facility] Procedures Date Procedure Procedure Detail Performing Clinician Start: 10-06-2023 Esophagogastroduodenoscopy us scope w/adj strxrs Vance Baires MD Work Phone: Start: 08-09-2023 MISCELLANEOUS GENETICS TEST HERMES CHRISTOPHER Start: 03-30-2023 Mammography Yas Wall MD Work Phone: Start: 03-25-2021 Mammography Yas Wall MD Work Phone: Start: 12-29-2020 Colonoscopy Vance Baires MD Work Phone: Start: 12-29-2020 Colonoscopy Reeves [employer] Start: 10-29-2020 Adult depression screening assessment Shwethablane Pattersonacre Appendectomy [employer] section Reeves SALAM Tonsillectomy and adenoidectomy Reeves SALAM Plan of Treatment Date Care Activity Detail Author Start: 11-23-2032 DTaP/Tdap/Td Vaccine s (2 - Td or Tdap) DTaP/Tdap/Td Vaccines (2 - Td or Tdap) [facility] Start: 12-29-2030 Screening for malign ant neoplasm of colon [facility] Start: 03-26-2026 LIPID SCREEN LIPID SCREEN [facility] Start: 03-30-2024 Mammography MAMMOGRAM [facility] Start: 03-30-2024 Screening for malign ant neoplasm of breast Mammogram [facility] Start: 03-26-2024 DIABETES SCREEN DIABETES SCREEN [facility] Start: 10-18-2023 End: 10-18-2023 Patient encounter procedure 10/18/2023 1:00 PM EST Office Visit [facility] [address] [place] [address] Kely Guevara, RESIDENTIAL APPLIANCE REPAIR TECHNICIAN-PORTRAIT PAINTER [address] [address] [facility] Start: 10-06-2023 End: 10-06-2023 Patient encounter procedure 10/06/2023 2:00 PM EST Appointment [facility] [address] [place] [id number] [place] [address] [facility] [place] [address] [place] [address] [place] [address] Yulia Dorman RN [facility] Start: 10-05-2023 End: 10-05-2024 Endoscopic Ultrasound (Upper) Endoscopic Ultrasound (Upper) Endoscopy Routine 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) Expected: 10/05/2023, Expires: 10/05/2024 [facility] Service Area Work Phone: Comment on above: Expected: 10/05/2023 , Expires: 10/05/2024 Start: 10-05-2023 End: 10-05-2023 Telemedicine consultation with patient 10/05/2023 9:00 AM EST Telemedicine [facility] [address] [facility] [address] [place] [id number] [place] [address] [facility] [place] [address] [facility] Start: 06-03-2023 Influenza [facility] Start: 10-03-2022 DEPRESSION ASSESSMENT DEPRESSION ASS ESSMENT [facility] Start: 06-03-[address] [facility] Start: 10-29-2021 Adult depression screening assessment DEPRESSION SCREENING [facility] Start: 07-30-2021 COVID-19 VACCINE (2 - Booster for Jarvis series) COVID-19 VACCINE (2 - Booster for Jarvis series) [facility] Start: 2016 SHINGRIX VACCINE (1 of 2) SHINGRIX VACCINE (1 of 2) [facility] Start: 2016 Zoster Vaccines (1 of 2) Zoste r Vaccines (1 of 2) [facility] Start: 2011 COLOGUARD (FIT-DNA) COLOGUARD (FIT-D NA) [facility] Start: 2011 Colonoscopy COLONOSCOPY [facility] Start: 2011 COLORECTAL CANCER SCREENING COLORECTAL CANCER SCREENING [facility] Start: [address] COLONOGRAPHY [facility] Start: 2011 FECAL OCCULT BLOOD FECAL OCCULT BLOO D [facility] Start: 2011 SIGMOIDOSCOPY SIGMOIDOSCOPY [facility] Start: 2008 PAP TESTING PAP TESTING [facility] Start: 2006 Mammography MAMMOGRAM [facility] Start: 1996 HPV TESTING HPV TESTING [facility] Start: 1987 PAP TESTING PAP TESTING [facility] Start: 1987 Screening for malign ant neoplasm of cervix [facility] Start: 1985 Urine microalbumin profile DTAP,TDAP,TD (1 - Tdap) [facility] Start: 1984 Diabetes mellitus screening Diabetes Screening [facility] Start: 1984 Hepatitis C screening Hepatitis C Sc reening [facility] Start: 1984 HIV SCREENING HIV SCREENING [facility] Start: 1972 PNEUMOCOCCAL (1 - PCV) PNEUMOCOCCAL (1 - PCV) [facility] Start: 1966 HIV screening HIV Screening [facility] Start: 1966 Lipid panel Lipid Panel [facility] Start: 1966 Screening for malign ant neoplasm of colon [facility] Start: 1966 Thyroid stimulating hormone measurement TSH Level [facility] Start: 1966 Yearly Adult Physical Yearly Adult P hysical [facility] End: 05-06-2024 Ultrasound elastography parenchyma US ELASTOGRAPHY LIVER Radiology Routine Primary biliary cholangitis (HCC) 1 Occurrences starting 2023 until 05/06/2024 [facility] Work Phone: Comment on above: 1 Occurrences starti ng 2023 until 05/06/2024 End: 05-06-2024 US ABD RIGHT UPPER QUADRANT US ABD RIGHT UPPER QUADRANT Radiology Routine Primary biliary cholangitis (HCC) 1 Occurrences starting 2023 until 05/06/2024 [facility] Work Phone: Comment on above: 1 Occurrences starti ng 2023 until 05/06/2024 [facility] Immunizations Immunization Date Immunization Notes Care Provider Gin lechuga 11-25-2022 measles, mumps and rubella virus vaccine Reeves SALAM [facility] 11-23-2022 tetanus toxoid, reduced diphtheria toxoid, and acellular pertussis vaccine, adsorbed Reeves SALAM [facility] 06-04-2021 COVID-19 vaccine, vector-nr, [id number], PF, 0.5 mL Reeves SALAM [facility] [employer] [facility] 03-14-2014 hepatitis A vaccine, adult dosage Reeves SALAM [facility] 03-14-2014 hepatitis B vaccine, adult dosage Reeves SALAM [facility] 11-12-2013 hepatitis B vaccine, adult dosage Reeves SALAM [facility] 09-06-2013 hepatitis A vaccine, adult dosage Reeves SALAM [facility] 09-06-2013 hepatitis B vaccine, adult dosage Reeves SALAM [facility] NEGATED: Highlighted row has not occurred!05-13-2022 influenza virus vaccine, unspecified formulation Reeves SALAM [facility] NEGATED: Highlighted row has not occurred!09-15-2021 influenza virus vaccine, unspecified formulation Leandro ALEMANAM [facility] Payers Date Payer Category Payer Unknown BILL K[facility] RAYM[facility] [id number] 2021-Present [phone] [address] [place] [address] Indemnity [id number] 2021 Unknown [id number] 2021 Unknown [id number] 1966 Unknown [id number] 1966 Unknown [id number] 1966 Unknown [id number] [id number] 1966 Unknown [id number] 1966 Unknown [id number] [id number] 1966 Unknown [id number] [id number] 1966 Unknown [id number] [id number] 1966 Unknown [id number] [id number] 1966 Unknown [id number] [id number] 1966 Unknown [id number] [id number] 1966 Unknown [id number] [id number] 1966 Unknown [id number] [id number] 1966 Unknown [id number] [id number] 1966 Unknown [id number] [id number] 4 1966 Unknown [id number] [id number] 4 1966 Unknown [id number] 5 1966 Unknown [id number] 5 Social History Date Type Detail Facility Start: 05-13-2022 End: 09-21-2023 Tobacco smoking status WVIS Never smoked tobacco [facility] Start: 01-21-2021 Alcohol intake 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 (finding) [facility] Start: 1965 Sex Assigned At Not on file C [facility] Tobacco smoking status Never [facility] Start: 04-06-2023 End: 10-06-2023 Sex Assigned At Female [facility] Start: 11-13-2019 End: 09-21-2023 Tobacco use and exposure Smokeless tobacco non-user [facility] Start: 04-06-2023 End: 10-06-2023 History of Social function [facility] Start: 09-21-2023 End: 10-06-2023 Alcohol intake Lifetime non-drinker (finding) [facility] Work Phone: Start: 09-08-2023 Sexual orientation Heterosexual (sangita becker) [facility] Work Phone: Start: 09-11-2023 End: 10-05-2023 Exposure to SARS-CoV-2 (event) Not sure [facility] NEGATED: Highlighted rowStart: BRITTANEY History of tobacco use Passive smoker [facility] Work Phone: Functional Status Date Assessment Result Facility 05-12-2023 Functional Status N/A [facility] 01-12-2023 Functional Status N/A [facility] 05-13-2022 Functional Status N/A [facility] Clinical Notes 03-02-2022 to 10-06-2023 Dhruv Petit MD - 10/06/2023 2:00 PM Ellis Petit MD - 10/06/2023 2:00 PM Kassy Baires MD - 10/05/2023 9:00 AM Dominga Caballero APRN-[facility] - 09/21/2023 11:00 AM ESTLaboratoryRadiologyLaboratory Note Date & Type Note Facility 10-06-2023 Attending History and physical note H&P reviewed. The patient was examined and there are no changes to the H&P. Source Note - Vance Baires MD - 10/05/2023 9:00 AM EST BRCA2 gene. Also has PBC. 39 years old when diagnosed with PBC. Mother had PBC at age 50's. She had liver biopsy to confirm. Has been on ursodiol. Now on Ocalva and fenofibrate. Also has hypothyroidism. No heart disease and No pulmonary disease. 5'2 , weights 176 lbs. Hx T&A and appx and c section. No smokng. No alcohol. Up to date on colon screening and mammography. Mother's sister, 84, had ovarian cancer. How it was diagnosed. Cousins tested and had ovaries and uterus removed. Maternal aunts had breast cancer. Maternal grandmother and maternal great gradnfather of pancreatic cancer. Imp - High risk for pancreas cancer given family hx and BRCA2 mutation Explained guidelines and risk/benefits. Will schedule for EUS. Total time 22 minutes. [facility] Work Phone: 10-06-2023 History and physical note H&P reviewed. The patient was examined and there are no changes to the H&P. Source Note - Vance Baires MD - 10/05/2023 9:00 AM EST BRCA2 gene. Also has PBC. 39 years old when diagnosed with PBC. Mother had PBC at age 50's. She had liver biopsy to confirm. Has been on ursodiol. Now on Ocalva and fenofibrate. Also has hypothyroidism. No heart disease and No pulmonary disease. 5'2 , weights 176 lbs. Hx T&A and appx and c section. No smokng. No alcohol. Up to date on colon screening and mammography. Mother's sister, 84, had ovarian cancer. How it was diagnosed. Cousins tested and had ovaries and uterus removed. Maternal aunts had breast cancer. Maternal grandmother and maternal great gradnfather of pancreatic cancer. Imp - High risk for pancreas cancer given family hx and BRCA2 mutation Explained guidelines and risk/benefits. Will schedule for EUS. Total time 22 minutes. documented in this encounter [facility] Work Phone: 10-05-2023 History of Present illness Narrative BRCA2 gene. Also has PBC. 39 years old when diagnosed with PBC. Mother had PBC at age 50's. She had liver biopsy to confirm. Has been on ursodiol. Now on Ocalva and fenofibrate. Also has hypothyroidism. No heart disease and No pulmonary disease. 5'2 , weights 176 lbs. Hx T&A and appx and c section. No smokng. No alcohol. Up to date on colon screening and mammography. Mother's sister, 84, had ovarian cancer. How it was diagnosed. Cousins tested and had ovaries and uterus removed. Maternal aunts had breast cancer. Maternal grandmother and maternal great gradnfather of pancreatic cancer. Imp - High risk for pancreas cancer given family hx and BRCA2 mutation Explained guidelines and risk/benefits. Will schedule for EUS. Total time 22 minutes. documented in this encounter [facility] Work Phone: 09-21-2023 History of Present illness Narrative Patient ID: Nithya Vasques is a 58 y.o. female. Primary Care Provider: Shaikh Brant MD Subjective Patient is a 58 year old female with newly diagnosed BRCA2 mutation. Referred to us by genetics for counseling for risk reducing BSO. Medical History: Hypothyroidism Hypotension Primary Biliary Cholangitis Surgical History: age 36 Tonsillectomy age 4 Appendectomy age 18 Social History: Non smoker Non drinker No illicit drugs Lives with S.O. Obstetrics/Gynecology History: Menopause age 41, no HRT Menarche age 14 No hx of OCPs , Dr. Almeida [employer] in [place] up to date. Family History: -Cousin with [id number] mutation. -Maternal aunt with BRCA2 pathogenic mutation and breast cancer diagnosed at 79 and gastric cancer diagnosed at 80, now 83. -Maternal grandmother with pancreatic cancer diagnosed at 54, shortly after. -Two maternal great uncles with prostate cancer diagnosed in their 60s, shortly after. -Maternal great aunt with breast cancer diagnosed at unknown age, at 51. -Maternal great aunt diagnosed with breast cancer at 48 and ovarian cancer at 62, at 68. -Maternal great grandfather with pancreatic cancer diagnosed at unknown age, at 86. -Maternal great uncle with non-Hodgkin lymphoma diagnosed at an unknown age, at 67. -Paternal uncle diagnosed with lymphoma diagnosed at an unknown age, at 68. -Paternal cousin with cancer [id number] at unknown age. -Two paternal cousins once removed with brain cancer, at 27 and 25 respectively. -Paternal grandmother of ovarian cancer at unknown age. -Two paternal great aunt with cancer [id number] at unknown age. Objective Visit Vitals BP 101/69 (BP Location: Right arm, Patient Position: Sitting, BP Cuff Size: Adult) Pulse 85 Temp 36.7 C (98.1 F) (Temporal) Resp 16 Interval history: Patient has irritable bowels with medications for PBC. Patient is currently sexually active, denies dyspareunia or vaginal dryness. Mammogram is up to date, negative but has had abnormal mammogram in past which she had breast MRI following. Patient denies any bladder issues. Denies any vaginal bleeding since menopause. Physical Exam: Constitutional: Looks good Eyes: PERRL ENMT: Moist mucus membranes Head/Neck: Supple. Symmetrical Musculoskeletal: ROM intact, no joint swelling, normal strength Extremities: No edema Neurological: Alert and oriented x 3. Pleasant and cooperative. Psychological: Appropriate mood and behavior Skin: Warm and dry, no lesions, no rashes A complete review of systems was performed and all systems were normal except what is noted in the interval history. Assessment/Plan Patient is a 58 year old female with newly diagnosed BRCA2 mutation. PLAN: BRCA2 positive - We discussed that there is a >60% chance of developing breast cancer and a 13-29% risk of developing ovarian cancer by age 70 with a BRCA2 mutation. Risk-reducing bilateral salpingo-oophorectomy was suggested as an option for ovarian cancer prevention. Due to the lifetime risk of ovarian cancer, we recommend that women with a BRCA2 mutation have both ovaries and fallopian tubes removed. There is evidence that this procedure may also reduce the risk of breast cancer when done in premenopausal women (the greatest benefit has been seen in those under 40 at the time of procedure). - She was counseled that the recommended age for BRCA2 mutation carriers for this procedure is typically between ages 35-40, though this may be delayed to age 40-45 in BRCA2 mutation carriers who have already maximized their breast cancer prevention (i.e. those who have undergone risk reducing mastectomy) due to onset of ovarian cancer on average 8-10 years later than BRCA1 carriers. The potential adverse effects of surgical menopause on quality of life and sexual function were discussed, as well as potential non-hormonal and hormonal methods of climacteric symptom management. Salpingectomy alone is not recommended as adequate surgical risk reduction as temporizing procedure prior to bilateral oophorectomy, but remains subject of ongoing study in clinical research protocols. We reviewed current data that does not support the routine use of screening techniques such as transvaginal ultrasound or the CA-125 blood test in women with HBOC as it does not have a favorable impact on disease-related survival outcomes. Current recommendations for management are derived from National Comprehensive Cancer network guidelines regarding Hereditary Breast and Ovarian Cancer. Patient does not wish to proceed with risk reducing BSO. Patient will call office if she decides to schedule virtual visit with Dr. Hernandez and then surgery. documented in this encounter [facility] Work Phone: 05-06-2023 Miscellaneous Notes Fibroscan w Ekpa 4.8 Us stable Pt sent the following MCM regarding US and fibroscan results: I didn t see these results in my chart for the [facility], so I am sending them. Can you see that Dr. Mandeep Mendez sees these? Pt uploaded images of results under scanned docs. Results not viewable in Care Everywhere at this time. See scanned docs for results review. Annette Molina RN May 05, 2023 12:16 PM documented in this encounter [facility] 2023 Miscellaneous Notes Pt notified via original MCM. Annette Molina RN 2023 3:06 PM Annette Can you please return the call, and let her know: I will put in orders for her to have it done again with ultrasound, so we have a basis for comparison Thanks Pt sent the following MCM: Dr. Mandeep Mendez wanted to know it the scan was vibration or ultrasound, it was ultrasound. Pt provided attachment of fibroscan image results. See pt entered attachment from yesterday 04/06/23. Message sent to Dr. Wall for review. Annette Molina RN 2023 10:17 AM documented in this encounter [facility] 04-06-2023 Note HNO ID: [id number] Author: Yas Wall MD Service: ? Author Type: Physician Type: Progress Notes Filed: 04/10/2023 8:40 AM Note Text: VIRTUAL VISIT PROGRESS NOTE This is a virtual visit using [employer] video visit. It required patient-provider interaction for the medical decision making as documented below. I have communicated my name and active licensure. The patient's identity and physical location were verified at the time of this visit. Either the patient or their legal manufacturer representative has been informed of the risks and benefits of -- and alternatives to -- treatment through a remote evaluation and consents to proceed with the evaluation remotely. Nithya Vasques is a 57 year old female seen for followup of PBC, diagnosed ~12/2005, after initial evaluation for persistent pruritus but nl liver enzymes -s/p liver biopsy done at [facility] 07/06/2013 w early stage disease Restarted on malathi after liver bx, given elevated LFts (1500 mg/d), and started on Ocaliva 5 mg 09/2019 -> c/b diarrhea -> switched to fenofibrate + malathi ~05/21/20; cut dose by 1/2 after elevated ast / alt 07/2020 -Status post fibroscan 10/14/2020 w E (kpa): 4.7 Last seen virtually 10/11/2022 Remainder of past medical history is significant for: -s/p fx L humerus 09/2019 -s/p T+A -s/p appy age 18 -E0W7-4-8-0, s/p CS x 1 -h/o hypothyroidism -h/o osteopenia -h/o pre-diabetes Since last seen -labs done 03/28/23 at [facility] Ast 32 Alt 58 Alkphos 150 Alb 3.5 T bili 0.3 -s/p mammogram done - wnl -s/p BMD done last at [facility] - told osteopenia, but no worse -weight stable ~ 175#, 5'2 (BMI 31.1) -continuing on malathi (1250 mg/d , equivalent to 15.2696997043 mg/kg/d) along w fenofibrate, ocaliva (2.5) - worried about increasing itching -had fibroscan done at [facility] ~ 1 -2 yrs HISTORY REVIEWED (electronic chart updated): No past medical history on file. No past surgical history on file. No family history on file. Social History Tobacco Use Smoking status: Never Smokeless tobacco: Never Substance Use Topics Alcohol use: No Current Outpatient Medications Medication Sig alendronate (FOSAMAX) 70 mg tablet TAKE 1 TABLET BY MOUTH ONCE EVERY WEEK. TAKE WITH FULL GLASS OF WATER IN THE MORNING ON AN EMPTY STOMACH. DO NOT LIE DOWN FOR 30 MINUTES fenofibrate nanocrystallized (TRICOR) 145 mg tablet TAKE 1 TABLET BY MOUTH EVERY DAY Ursodiol 500 mg tablet TK 1 T PO TID WF levothyroxine (SYNTHROID) 150 mcg tablet Take 1 tablet by mouth once daily. But skip Saturdays and Sundays (so total 5 tablets per week) MULTIVITAMIN ORAL Take 1 tablet by mouth once daily. ergocalciferol 50,000 unit capsule (VITAMIN D2, DRISDOL) TK 1 C PO TWICE A WEEK ON TUESDAY AND TUESDAY CLOBETASOL 0.05 % OINTMENT Apply to affected area(s) twice daily PRN itch No current facility-administered medications for this visit. 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 Maintained on ursodiol with relatively normal labs until late 2018 - started on Ocaliva 5 mg/day, w decreased ursodiol dose (500 mg per day) ~ 09/05/2019 - but loose stools Restarted on ursodiol 1000 mg/d (>15 mg/kg per day) along w fenofibrate ~05/21/20; cut dose by 1/2 after elevated ast / alt 07/2020 Baseline VCTE from 10/14/20 w prob early stage fibrosis if any; repeated at [facility] (?results) Last BMD done at [facility] 12/2019 -> osteropenia (unchanged) Still w mildly elevated alk phos on labs; concerned re risk of pruritus if increased dose of ocaliva vs loose stools Long discussion today regarding issues and options PLAN: Suggested: 1. PBC -continue malathi dose (1250 mg/d ) - Continue fenofibrate at current dose -continue current dose of ocaliva -repeat VCTE (vs ARFII) at [facility]; if no change in Ekpa, would hold off on making any dose changes, but if suggestion of worsening,would have a low threshold to incr dose -serial labs -BMD locally per protocol Follow-up on the phone RTC ~1 yr Yas Wall MD [facility] 04-06-2023 History of Present illness Narrative VIRTUAL VISIT PROGRESS NOTE This is a virtual visit using [employer] video visit. It required patient-provider interaction for the medical decision making as documented below. I have communicated my name and active licensure. The patient's identity and physical location were verified at the time of this visit. Either the patient or their legal manufacturer representative has been informed of the risks and benefits of -- and alternatives to -- treatment through a remote evaluation and consents to proceed with the evaluation remotely. Nithya Vasques is a 57 year old female seen for followup of PBC, diagnosed ~12/2005, after initial evaluation for persistent pruritus but nl liver enzymes -s/p liver biopsy done at [facility] 07/06/2013 w early stage disease Restarted on malathi after liver bx, given elevated LFts (1500 mg/d), and started on Ocaliva 5 mg 09/2019 -> c/b diarrhea -> switched to fenofibrate + malathi ~05/21/20; cut dose by 1/2 after elevated ast / alt 07/2020 -Status post fibroscan 10/14/2020 w E (kpa): 4.7 Last seen virtually 10/11/2022 Remainder of past medical history is significant for: -s/p fx L humerus 09/2019 -s/p T+A -s/p appy age 18 -R5C1-7-2-5, s/p CS x 1 -h/o hypothyroidism -h/o osteopenia -h/o pre-diabetes Since last seen -labs done 03/28/23 at [facility] Ast 32 Alt 58 Alkphos 150 Alb 3.5 T bili 0.3 -s/p mammogram done - wnl -s/p BMD done last at [facility] - told osteopenia, but no worse -weight stable ~ 175#, 5'2 (BMI 31.1) -continuing on malathi (1250 mg/d , equivalent to 15.9142040088 mg/kg/d) along w fenofibrate, ocaliva (2.5) - worried about increasing itching -had fibroscan done at [facility] ~ 1 -2 yrs HISTORY REVIEWED (electronic chart updated): No past medical history on file. No past surgical history on file. No family history on file. Social History Tobacco Use Smoking status: Never Smokeless tobacco: Never Substance Use Topics Alcohol use: No Current Outpatient Medications Medication Sig alendronate (FOSAMAX) 70 mg tablet TAKE 1 TABLET BY MOUTH ONCE EVERY WEEK. TAKE WITH FULL GLASS OF WATER IN THE MORNING ON AN EMPTY STOMACH. DO NOT LIE DOWN FOR 30 MINUTES fenofibrate nanocrystallized (TRICOR) 145 mg tablet TAKE 1 TABLET BY MOUTH EVERY DAY Ursodiol 500 mg tablet TK 1 T PO TID WF levothyroxine (SYNTHROID) 150 mcg tablet Take 1 tablet by mouth once daily. But skip Saturdays and Sundays (so total 5 tablets per week) MULTIVITAMIN ORAL Take 1 tablet by mouth once daily. ergocalciferol 50,000 unit capsule (VITAMIN D2, DRISDOL) TK 1 C PO TWICE A WEEK ON TUESDAY AND TUESDAY CLOBETASOL 0.05 % OINTMENT Apply to affected area(s) twice daily PRN itch No current facility-administered medications for this visit. 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 Maintained on ursodiol with relatively normal labs until late 2018 - started on Ocaliva 5 mg/day, w decreased ursodiol dose (500 mg per day) ~ 09/05/2019 - but loose stools Restarted on ursodiol 1000 mg/d (>15 mg/kg per day) along w fenofibrate ~05/21/20; cut dose by 1/2 after elevated ast / alt 07/2020 Baseline VCTE from 10/14/20 w prob early stage fibrosis if any; repeated at [facility] (?results) Last BMD done at [facility] 12/2019 -> osteropenia (unchanged) Still w mildly elevated alk phos on labs; concerned re risk of pruritus if increased dose of ocaliva vs loose stools Long discussion today regarding issues and options PLAN: Suggested: 1. PBC -continue malathi dose (1250 mg/d ) - Continue fenofibrate at current dose -continue current dose of ocaliva -repeat VCTE (vs ARFII) at [facility]; if no change in Ekpa, would hold off on making any dose changes, but if suggestion of worsening,would have a low threshold to incr dose -serial labs -BMD locally per protocol Follow-up on the phone RTC ~1 yr Yas Wall MD documented in this encounter [facility] 01-04-2023 Miscellaneous Notes Received the following [employer] message: Dr. Paradise Mendez wanted to see lab results in 4 months Constanza Corona RN January 04, 2023 3:18 PM documented in this encounter [facility] 10-11-2022 Note HNO ID: [id number] Author: Yas Wall MD Service: ? Author Type: Physician Type: Progress Notes Filed: 10/15/2022 4:52 PM Note Text: VIRTUAL VISIT PROGRESS NOTE This is a virtual visit using [employer] video visit. It required patient-provider interaction for the medical decision making as documented below. Nithya Vasques is a 57 year old female seen for followup of PBC, diagnosed ~12/2005, after initial evaluation for persistent pruritus but nl liver enzymes -s/p liver biopsy done at [facility] 07/06/2013 w early stage disease Restarted on malathi after liver bx, given elevated LFts (1500 mg/d), and started on OCaliva 5 mg 09/2019 -> c/b diarrhea -> switched to fenofibrate + malathi ~05/21/20; cut dose by 1/2 after elevated ast / alt 07/2020 -Status post fibroscan 10/14/2020 w E (kpa): 4.7 Last seen 03/03/22 Remainder of past medical history is significant for: -s/p fx L humerus 09/2019 -s/p T+A -s/p appy age 18 -C6Z5-8-5-6, s/p CS x 1 -h/o hypothyroidism -h/o osteopenia -h/o pre-diabetes Since last seen -labs done 09/22 at [facility] Ast 30 Alt 53 Alkphos 153 Alb 3.6 -weight still uptrending - now ~176 lbs/ 80kg -continuing on malathi (12.3399225146 mg/kg/d, given wgt =176), fenofibrate, ocaliva (2.5) -trying to walk 3 -5 miles/d -> typically getting >10K steps/d -no recent Hgb A1C HISTORY REVIEWED (electronic chart updated): No past medical history on file. No past surgical history on file. No family history on file. Social History Tobacco Use Smoking status: Never Smokeless tobacco: Never Substance Use Topics Alcohol use: No Current Outpatient Medications Medication Sig alendronate (FOSAMAX) 70 mg tablet TAKE 1 TABLET BY MOUTH ONCE EVERY WEEK. TAKE WITH FULL GLASS OF WATER IN THE MORNING ON AN EMPTY STOMACH. DO NOT LIE DOWN FOR 30 MINUTES fenofibrate nanocrystallized (TRICOR) 145 mg tablet TAKE 1 TABLET BY MOUTH EVERY DAY Ursodiol 500 mg tablet TK 1 T PO TID WF levothyroxine (SYNTHROID) 150 mcg tablet Take 1 tablet by mouth once daily. But skip Saturdays and Sundays (so total 5 tablets per week) MULTIVITAMIN ORAL Take 1 tablet by mouth once daily. ergocalciferol 50,000 unit capsule (VITAMIN D2, DRISDOL) TK 1 C PO TWICE A WEEK ON TUESDAY AND TUESDAY CLOBETASOL 0.05 % OINTMENT Apply to affected area(s) twice daily PRN itch No current facility-administered medications for this visit. 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 PBC -increase malathi to 1250 mg/d -continue efforts at exercise -to ask PCP for referral to nutririonist for advice on weight loss given pre-DM and concern for fatty liver - Continue fenofibrate at current dose (in the past, at higher doses had triggered a bump in transaminases) -continue current dose of OCALIVA (previously had loose stools on higher doses) - but if alk phos not better in ~3-4 months, would have a low threshold to incr dose -Plan to repeat fibroscan if/when next seen in liver clinic Follow-up on the phone after next set of labs RTC ~6 months Yas Wall MD [facility] 10-11-2022 History of Present illness Narrative VIRTUAL VISIT PROGRESS NOTE This is a virtual visit using [employer] video visit. It required patient-provider interaction for the medical decision making as documented below. Nithya Vasques is a 57 year old female seen for followup of PBC, diagnosed ~12/2005, after initial evaluation for persistent pruritus but nl liver enzymes -s/p liver biopsy done at [facility] 07/06/2013 w early stage disease Restarted on malathi after liver bx, given elevated LFts (1500 mg/d), and started on OCaliva 5 mg 09/2019 -> c/b diarrhea -> switched to fenofibrate + malathi ~05/21/20; cut dose by 1/2 after elevated ast / alt 07/2020 -Status post fibroscan 10/14/2020 w E (kpa): 4.7 Last seen 03/03/22 Remainder of past medical history is significant for: -s/p fx L humerus 09/2019 -s/p T+A -s/p appy age 18 -S7A0-8-5-2, s/p CS x 1 -h/o hypothyroidism -h/o osteopenia -h/o pre-diabetes Since last seen -labs done 09/22 at [facility] Ast 30 Alt 53 Alkphos 153 Alb 3.6 -weight still uptrending - now ~176 lbs/ 80kg -continuing on malathi (12.1718746254 mg/kg/d, given wgt =176), fenofibrate, ocaliva (2.5) -trying to walk 3 -5 miles/d -> typically getting >10K steps/d -no recent Hgb A1C HISTORY REVIEWED (electronic chart updated): No past medical history on file. No past surgical history on file. No family history on file. Social History Tobacco Use Smoking status: Never Smokeless tobacco: Never Substance Use Topics Alcohol use: No Current Outpatient Medications Medication Sig alendronate (FOSAMAX) 70 mg tablet TAKE 1 TABLET BY MOUTH ONCE EVERY WEEK. TAKE WITH FULL GLASS OF WATER IN THE MORNING ON AN EMPTY STOMACH. DO NOT LIE DOWN FOR 30 MINUTES fenofibrate nanocrystallized (TRICOR) 145 mg tablet TAKE 1 TABLET BY MOUTH EVERY DAY Ursodiol 500 mg tablet TK 1 T PO TID WF levothyroxine (SYNTHROID) 150 mcg tablet Take 1 tablet by mouth once daily. But skip Saturdays and Sundays (so total 5 tablets per week) MULTIVITAMIN ORAL Take 1 tablet by mouth once daily. ergocalciferol 50,000 unit capsule (VITAMIN D2, DRISDOL) TK 1 C PO TWICE A WEEK ON TUESDAY AND TUESDAY CLOBETASOL 0.05 % OINTMENT Apply to affected area(s) twice daily PRN itch No current facility-administered medications for this visit. 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 PBC -increase malathi to 1250 mg/d -continue efforts at exercise -to ask PCP for referral to nutririonist for advice on weight loss given pre-DM and concern for fatty liver - Continue fenofibrate at current dose (in the past, at higher doses had triggered a bump in transaminases) -continue current dose of OCALIVA (previously had loose stools on higher doses) - but if alk phos not better in ~3-4 months, would have a low threshold to incr dose -Plan to repeat fibroscan if/when next seen in liver clinic Follow-up on the phone after next set of labs RTC ~6 months Yas Wall MD documented in this encounter [facility] 05-13-2022 Evaluation [facility] 05/13/22 [facility] 03-03-2022 History of Present illness Narrative VIRTUAL VISIT PROGRESS NOTE This is a virtual visit using [employer] video visit. It required patient-provider interaction for the medical decision making as documented below. Nithya Vasques is a 56 year old female seen for followup of PBC, diagnosed ~12/2005, after initial evaluation for persistent pruritus but nl liver enzymes -s/p liver biopsy done at [facility] 07/06/2013 w early stage disease Restarted on malathi after liver bx, given elevated LFts (1500 mg/d), and started on OCaliva 5 mg 09/2019 -> c/b diarrhea -> switched to fenofibrate + malathi ~05/21/20; cut dose by 1/2 after elevated ast / alt 07/2020 Status post fibroscan 10/14/2020 w E (kpa): 4.7 Last seen 07/27/2021 Remainder of past medical history is significant for: -s/p fx L humerus 09/2019 -s/p T+A -s/p appy age 18 -R3A5-0-2-6, s/p CS x 1 -h/o hypothyroidism -h/o osteopenia Since last seen -recent labs done done at [facility] 02/18/202209/2021 AST 46 35 ALT 85 51 ALk phos 150 139 -has gained ~ 30# over last 2 yrs (160#, 5'2 = BMI 29.3) -glucose a1C in pre-diabetic range -continuing on malathi (13.8 mg/kg/d, given wgt =160), fenofibrate, ocaliva (2.5) -walking 3 -5 miles/d -has a fit bit but not really using it HISTORY REVIEWED (electronic chart updated): No past medical history on file. No past surgical history on file. No family history on file. Social History Tobacco Use Smoking status: Never Smoker Smokeless tobacco: Never Used Substance Use Topics Alcohol use: No Drug use: Not on file Current Outpatient Medications Medication Sig alendronate (FOSAMAX) 70 mg tablet TAKE 1 TABLET BY MOUTH ONCE EVERY WEEK. TAKE WITH FULL GLASS OF WATER IN THE MORNING ON AN EMPTY STOMACH. DO NOT LIE DOWN FOR 30 MINUTES fenofibrate nanocrystallized (TRICOR) 145 mg tablet TAKE 1 TABLET BY MOUTH EVERY DAY Ursodiol 500 mg tablet TK 1 T PO TID WF levothyroxine (SYNTHROID) 150 mcg tablet Take 1 tablet by mouth once daily. But skip Saturdays and Sundays (so total 5 tablets per week) MULTIVITAMIN ORAL Take 1 tablet by mouth once daily. ergocalciferol 50,000 unit capsule (VITAMIN D2, DRISDOL) TK 1 C PO TWICE A WEEK ON TUESDAY AND TUESDAY CLOBETASOL 0.05 % OINTMENT Apply to affected area(s) twice daily PRN itch No current facility-administered medications for this visit. ALLERGIES Allergen Reactions Rifampin Rash, Itching Sulfa (Sulfonamide * Other: See Comments REVIEW OF SYSTEMS: n/a PHYSICAL EXAMINATION: VIDEO EXAM: (if completed, performed via video enabled technology) No exam performed ASSESSMENT: 56 yo woman with a history of PBC (+ antimitochondrial antibody >1:320), s/p liver biopsy from 2012. Maintained on ursodiol (currently on 1000 mg per day), with relatively normal labs until late 2018 started on Ocaliva 5 mg/day, along with a decreased ursodiol dose (500 mg per day) ~ 09/05/2019 - but loose stools Restarted on ursodiol 1000 mg/d (>15 mg/kg per day) along w fenofibrate ~05/21/20; cut dose by 1/2 after elevated ast / alt 07/2020 Baseline VCTE from 10/14/20 w prob early stage fibrosis Last BMD done at [facility] 12/2019 -> osteropenia Mildly elevated liver enzymes on most recent blood work (with alkaline phosphatase however still <1.5x ULN), mildly elevated ALT >AST however, in the context of ~30#weight gain over the last 2 years Previous FibroScan with relatively low CAP score Long discussion today regarding issues and options PLAN: Suggested: 1. PBC Unclear if recent bump in liver tests related to PBC versus possible other causes (? Fatty liver, given emergence of some risk factors for metabolic syndrome) Discussed impact of exercise and weight loss on resolution of fatty liver Would continue current doses of Malathi (increasing by 250 mg would result in daily dose of 17.4 mg/kg/day) Continue fenofibrate at current dose (in the past, at higher doses had triggered a bump in transaminases) continue current dose of OCALIVA (previously had loose stools on higher doses) Repeat blood work locally in ~3 4 months Plan to repeat fibroscan if/when next seen in liver clinic (unfortunately, out of network) Follow-up on the phone after next set of labs RTC ~6-9 months There are no Patient Instructions on file for this visit. Yas Wall MD documented in this encounter [facility] 03-02-2022 Miscellaneous Notes Called Nithya Vasques to remind them of an appointment with Dr. Wall on 03/03/22. Spoke with patient. Appointment confirmed. documented in this encounter [facility] Evaluation + Plan note Future Appointments Appointment Date:01/18/2024 10:45:00 AM Scheduled Provider:Leandro BILL MD Location:[facility] [place] [facility] Appointment Type:[facility] Follow Up Future Scheduled TestsVitamin D 25 Hydroxy 01/12/23CBC w/ Auto Diff 01/12/23Hepatic Function Panel 01/12/23BD Bone Density DEXA Peripheral Study 01/12/23 [facility] Evaluation + Plan note Future Appointments Appointment Date:01/18/2024 10:45:00 AM Scheduled Provider:Leandro BILL MD Location:[facility] [place] [facility] Appointment Type:BAD Follow Up Future Scheduled TestsVitamin D 25 Hydroxy 01/12/23CBC w/ Auto Diff 01/12/23Hepatic Function Panel 01/12/23BD Bone Density DEXA Peripheral Study 03/04/23 [facility] Evaluation + Plan note Future Appointments Appointment Date:11/14/2023 10:00:00 AM Scheduled Provider:Vitaly Stauffer MD Location:[facility] [place] [facility] Appointment Type:[facility] Follow Up Appointment Date:01/18/2024 10:45:00 AM Scheduled Provider:Leandro BILL MD Location:[facility] Appointment Type:[facility] Follow Up Future Scheduled TestsVitamin D 25 Hydroxy 01/12/23CBC w/ Auto Diff 01/12/23Hepatic Function Panel 01/12/23BD Bone Density DEXA Peripheral Study 03/04/23 [facility] Evaluation note Diagnosis Primary biliary cholangitis (HCC) [facility] Diagnosis Primary biliary cholangitis (HCC)- Primary documented in this encounter [facility] note* Diagnosis Primary biliary cholangitis (HCC)- Primary documented in this encounter [facility] note* Diagnosis Primary biliary cholangitis (HCC)- Primary documented in this encounter [facility] note* Diagnosis BRCA positive- Primary Genetic susceptibility to malignant neoplasm of breast documented in this encounter [facility] Work Phone: Evaluation note* Diagnosis BRCA positive- Primary 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) documented in this encounter [facility] Work Phone: Evaluation note* Diagnosis BRCA positive 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) documented in this encounter [facility] Work Phone: Hospital course Narrative No data available for this section [facility] Discharge instructions No data available for this section [facility] Progress note No data available for this section [facility] Reason for referral (narrative)* Diagnostic Procedure Only (Routine) - Pending Review Specialty Diagnoses / Procedures Referred By Rosaura t Referred To Contact US IMAGING Diagnoses Primary biliary cholangitis (HCC) Procedures US ELASTOGRAPHY LIVER ULTRASOUND ELASTOGRAPHY PARENCHYMA O'Mendez, Yas S, MD [address] [place] [address] Us Imaging Referral ID Status Reason Start Date Expiration Date Visits Requested Visits Authorized [id number] Pending Review Auto-Generat ed Referral 2023 05/06/2024 1 1 * Diagnostic Procedure Only (Routine) - Pending Review Specialty Diagnoses / Procedures [facility] To [facility] IMAG[facility] Diagnoses Primary biliary cholangitis (HCC) Procedures US ABD RIGHT UPPER QUADRANT US ABDOMINAL REAL TIME W/IMAGE LIMITED Yas Wall MD [address] [place] [address] Us Imaging Referral ID Status Reason Start Date Expiration Date Visits Requested Visits Authorized [id number] Pending Review Auto-Generat ed Referral 2023 05/06/2024 1 1 [facility] Summary Purpose Family History No Family History Records FoundNo Family History Records FoundNo Family History Records FoundNo Family History Records FoundNo Family History Records FoundNo Family History Records Found Advance Directives No Advanced Directives Records FoundNo Advanced Directives Records FoundNo Advanced Directives Records FoundNo Advanced Directives Records FoundNo Advanced Directives Records FoundNo Advanced Directives Records Found Reason for Referral Specialty Diagnoses / Procedures Referred By [facility] t Referred To Contact Gastroenterology Diagnoses 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) Procedures Endoscopic Ultrasound (Upper) [place] [address] [facility] Department [place] [address] Referral ID Status Reason Start Date Expiration Date V isits Requested Visits Authorized [id number] Authorized 10/05/2023 10/04/2024 1 1 Additional Source Comments Source Comments (unrecognize d section and content) In the event this informatio n is protected by the Federal Confidentiality of Alcohol and Drug Abuse Patient Records regulations: The Federal rules restrict any use of the information to criminally investigate or prosecute any alcohol or drug abuse patient.[facility] the event this information is protected by the Federal Confidentiality of Alcohol and Drug Abuse Patient Records regulations: The Federal rules restrict any use of the information to criminally investigate or prosecute any alcohol or drug abuse patient.[facility] the event this information is protected by the Federal Confidentiality of Alcohol and Drug Abuse Patient Records regulations: The Federal rules restrict any use of the information to criminally investigate or prosecute any alcohol or drug abuse patient.[facility] the event this information is protected by the Federal Confidentiality of Alcohol and Drug Abuse Patient Records regulations: The Federal rules restrict any use of the information to criminally investigate or prosecute any alcohol or drug abuse patient.[facility] the event this information is protected by the Federal Confidentiality of Alcohol and Drug Abuse Patient Records regulations: The Federal rules restrict any use of the information to criminally investigate or prosecute any alcohol or drug abuse patient.[facility] the event this information is protected by the Federal Confidentiality of Alcohol and Drug Abuse Patient Records regulations: The Federal rules restrict any use of the information to criminally investigate or prosecute any alcohol or drug abuse patient.[facility] the event this information is protected by the Federal Confidentiality of Alcohol and Drug Abuse Patient Records regulations: The Federal rules restrict any use of the information to criminally investigate or prosecute any alcohol or drug abuse patient.[facility] the event this information is protected by the Federal Confidentiality of Alcohol and Drug Abuse Patient Records regulations: The Federal rules restrict any use of the information to criminally investigate or prosecute any alcohol or drug abuse patient.[facility] Reason for Visit (unrecogniz ed section and content) Reason Comments Liver Disease Specialty Diagnoses / Procedures Referred By Rosaura gonzalez Referred To Contact [facility] [place] [place] Diagnoses Primary biliary cholangitis (HCC) [K74.3] Procedures REFERRAL TO [facility] FINANCIAL COUNSELOR Video visit Yas Wall MD [address] [place] [address] [place] [id number] Referral ID Status Reason Start Date Expiration Date Visits Requested Visits Authorized [id number] Closed Financial Clearance Required - OON Payor OON Notification Letter Patient cleared - OON Required Payment Collected 03/23/2022 10/11/2022 1 1 Reason Comments Appointment Specialty Diagnoses / Procedures Referred By Contact Referred To Contact Gastroenterology / GASTROENTEROLOGY Diagnoses Primary bilary cholangitis Procedures REFERRAL TO [facility] FINANCIAL COUNSELOR EST VIRTUAL VISIT PATIENT Yas Wall MD [address] [place] [address] Yas Wall MD [address] [place] [address] Referral ID Status Reason Start Date Expiration Date Visits Requested Visits Authorized [id number] Closed Financial Clearance Required - Self Pay Financial Clearance Required - OON Payor OON Notification Letter Patient Cleared Patient chose to pay or Auth obtained after CCN denied 10/13/2021 01/11/2022 1 1 Reason Comments Orders Reason Comments Results Specialty Diagnoses / Procedures Referred By Rosaura gonzalez Referred To Contact [facility] Diagnoses Primary biliary cholangitis (HCC) Procedures virtual visit Yas Wall MD [address] [place] [address] [address] Referral ID Status Reason Start Date Expiration Date V isits Requested Visits Authorized [id number] Closed OON/Self Pay Override 01/18/2023 04/19/2023 1 1 Reason Comments Results Specialty Diagnoses / Procedures Referred By Contac t Referred To Contact Gastroenterology Diagnoses 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) Procedures Endoscopic Ultrasound (Upper) [place] [address] Department [place] [address] Referral ID Status Reason Start Date Expiration Date V isits Requested Visits Authorized [id number] Authorized 10/05/2023 10/04/2024 1 1 Care Teams (unrecognized sec tion and content) Faucets Assembler Relationship Specialty Start Date End Date Alok Choi Jr. [address] [place] [address] PCP - General 04/21/06 Faucets Assembler Relationship Specialty Start Date End Date Alok Choi Jr. [address] [place] [address] PCP - General 04/21/06 Faucets Assembler Relationship Specialty Start Date End Date Alok Choi Jr. [address] [place] [address] PCP - General 04/21/06 Faucets Assembler Relationship Specialty Start Date End Date Alok Choi Jr. [address] [place] [address] PCP - General 04/21/06 Faucets Assembler Relationship Specialty Start Date End Date Alok Choi Jr. [address] [place] [address] PCP - General 04/21/06 Faucets Assembler Relationship Specialty Start Date End Date Alok Choi Jr. [address] [place] [address] PCP - General 04/21/06 Faucets Assembler Relationship Specialty Start Date End Date Alok Choi Jr. [facility] [place] [address] PCP - General 04/21/06 Faucets Assembler Relationship Specialty Start Date End Date Shaikh Guo MD [address] [place] [address] PCP - General Internal Medicine 09/08/23 Faucets Assembler Relationship Specialty Start Date End Date Shaikh Guo MD [address] [place] [address] PCP - General Internal Medicine 09/08/23 INFORMATION SOURCE (unrecogn ized section and content) DATE CREATED AUTHOR 03/29/2022 [facility] dical Specialist DATE CREATED AUTHOR AUTHOR'S ORGANIZ ATION 01/08/2023 [facility] DATE CREATED AUTHOR AUTHOR'S ORGANIZ ATION 05/07/2023 [facility] DATE CREATED AUTHOR AUTHOR'S ORGANIZ ATION 07/28/2023 [facility] DATE CREATED AUTHOR AUTHOR'S ORGANIZ ATION 09/08/2023 [facility] DATE CREATED AUTHOR AUTHOR'S ORGANIZ ATION 09/25/2023 [facility] FOR RECORDS PERTAINING TO PATIENTS WHO ARE OR HAVE BEEN ENROLLED IN A CHEMICAL DEPENDENCY/SUBSTANCEABUSE PROGRAM, SOME INFORMATION MAY BE OMITTED. This clinical summary was aggregated from multiple sources. Caution should be exercised in using it in the provision of clinical care. This summary normalizes information from multiple sources, and as a consequence, information in this document may materially change the coding, format and clinical context of patient data. In addition, data may be omitted in some cases. CLINICAL DECISIONS SHOULD BE BASED ON THE PRIMARY CLINICAL RECORDS. [employer] provides no warranty or guarantee of the accuracy or completeness of information in this document.
== END 2023-10-24 09:11 | disposition home or self-care (01) ==
LOC: LAB 09:11
PROVIDERS: PCP Internal Medicine
DX: K74.3 Primary biliary cirrhosis (principal); E55.9 Vitamin D deficiency, unspecified; Z86.010 Personal history of colon polyps
CPT/HCPCS: 36415; 82306

== ENCOUNTER 2023-10-24 09:13 | Outpatient (OUT) | payer OTHER, SELFPAY ==
[2023-10-24 10:04] LABS: Free T3 2.28 pg/mL (2.18-3.98); Thyroid Stimulating Hormone 0.856 uIU/mL (0.358-3.740)
[2023-10-24 10:18] LABS: Free T4 2.79 ng/dL (0.76-1.46)
== END 2023-10-24 09:14 | disposition home or self-care (01) ==
PROVIDERS: PCP Internal Medicine; Visit Provider Internal Medicine
DX: K74.3 Primary biliary cirrhosis (principal); E55.9 Vitamin D deficiency, unspecified; Z86.010 Personal history of colon polyps; E06.3 Autoimmune thyroiditis
CPT/HCPCS: 36415; 82306; 84439; 84443; 84481

== ENCOUNTER 2023-10-26 09:29 | Outpatient (OUT) | payer OTHER, SELFPAY ==
--- OUTSIDE RECORDS SUMMARY | 2023-10-26 09:33 | XMS_ITS | CCD ---
Author Name Unknown Address [address] [place] [address] Organization [facility] Care Team Providers Care Medical Physiologist Name Role Phone Alok Choi Jr. Primary Care Provider SHAIKH GUO Primary Care Physician Alok Choi Jr. Primary Care Provider SALAM, [...] WALL S Referring Unavailable ALOK CHOI JR [facility] Care Unavail able O'MENDEZYAS Attending Unavailable BRANT [facility] Primary Care Unavailable Vitaly Stauffer Attending Unavaila amador GUO, [facility] Primary Care Unavailable SALAM, Reeves Attending Unavailable SALAM, Reeves Attending Unavailable [facility] Care Unavailable SALAM, Reeves Referring Unavailable [facility] Primary Care Unavailable SALAM, Reeves Admitting Unavailable SALAM, Reeves Attending Unavailable FAWCHACORTA, [facility] Care Unavailable O'MENDEZ, YAS S Admitting Unavailable O'MENDEZ, YAS Faustin Attending Unavailable O'MENDEZYAS Referring Unavailable STACIA, [facility] Primary Care Unavailable Vitaly Stauffer Attending UnavailHERMES Clark Attending Unavailable HERMES JOHNSON Attending Unavailable Brant URIAS [facility] Provider [phone] LYNDON QUINN Attending Unavailable [facility] Unavailable HERMES CABALLERO Attending Unavailable [facility] Unavailable Allergies Allergy Classification Reported Allergen(s) Allergy Type Date of Onset Reaction(s) Facility (9 sources) rifAMPin; Translations: [RIFAMPIN] Drug Allergy 6 Rash, Itching [facility] (14 sources) Sulfonamides (Antibiotic); Translations: [SULFA (SULFONAMIDE ANTIBIOTICS)] Drug Allergy 9 Other: See Comments, Hives [facility] (6 sources) Sulfonamides (Antibiotic); Translations: [sulfa drugs] Drug allergy allergy [facility] (1 source) Sulfonamides (Antibiotic) Drug allergy (disorder) 3 [facility] Repository (1 source) ALLERGIES NOT ON FILE; Translations: [ALLERGIES NOT ON FILE] Propensity to adverse reactions (disorder) [facility] 3 Repository Medications Current Medications Medication Drug [...] day(s), # 90 tab(s), Refills(s) 1, Pharmacy: [facility] [id number], 160, cm, 05/13/22 13:20:00 EDT, Height/Length Dosing, 76.6, kg, 05/13/22 13:20:00 EDT, Weight Dosing Start Date: 10/14/22 Stop Date: 04/12/23 Status: Ordered Start: 09-15-2021 take 0.5 tablet by m out once daily fenofibrate 145 mg Tab 1/2 tab(s), Oral, Daily, # 30 tab(s), Refills(s) 4, Pharmacy: [facility] 536, 160, cm, 09/15/21 14:38:00 EST, [...] Daily, # 30 tab(s), Refills(s) 0, Pharmacy: [facility], 160, cm, 01/12/23 10:47:00 EDT, Height/Length Dosing, 84.6, kg, 01/12/23 10:47:00 EDT, Weight Dosing Start Date: 01/12/23 Status: Ordered Start: 10-21-2021 End: 10-16-2022 take 1 tablet by mouth once daily Ocaliva 5 mg oral tablet 5 mg = 1 tab(s), Oral, Daily, X 90 day(s), # 90 tab(s), Refills(s) 3, Pharmacy: [facility], 160, cm, 09/15/21 14:38:00 EST, Height/Length Dosing, 75.6, kg, 09/15/21 14:38:00 EST, Weight Dosing Start Date: 10/21/21 Stop Date: 10/16/22 Status: Ordered Start: 09-15-2021 take 0.5 tablet by m outh once daily Ocaliva 5 mg oral tablet 1/2, Oral, Daily, # 15 tab(s), Refills(s) 11, Pharmacy: [facility], 160, cm, 09/15/21 14:38:00 EST, Height/Length Dosing, 75.6, kg, 09/15/21 14:38:00 EST, Weight Dosing Start Date: 09/15/21 Status: Ordered ursodiol 500 mg oral tablet (17 sources) Bile Acid Start: 01-12-2023 take 1 tablet by mouth twice daily at mealtime ursodiol 500 mg Tab 500 mg = 1 tab(s), Oral, BID, with food, # 60 tab(s), Refills(s) 11, Pharmacy: [facility], 160, cm, 01/12/23 10:47:00 EDT, Height/Length Dosing, 84.6, kg, 01/12/23 10:47:00 EDT, Weight Dosing Start Date: 01/12/23 Status: Ordered Start: 09-15-2021 take 1 tablet by sara twice daily at mealtime ursodiol 500 mg Tab 500 mg = 1 tab(s), Oral, BID, with food, # 60 tab(s), Refills(s) 11, Pharmacy: [facility], 160, cm, 09/15/21 14:38:00 EST, [...] day(s), # 12 cap(s), Refills(s) 3, Pharmacy: [facility] [id number], 160, cm, 05/12/23 13:51:00 EDT, Height/Length Dosing, 83.4, kg, 05/12/23 13:51:00 EDT, Weight Dosing Start Date: 05/12/23 Stop Date: 05/06/24 Status: Ordered Start: 04-18-2023 End: 05-18-2023 Vitamin D 50,000 intl units (1.25 mg) oral capsule 50,000 International_Unit, Oral, qWeek, X 30 day(s), # 4 cap(s), Refills(s) 0, Pharmacy: [facility] [id number], 160, cm, 01/12/23 10:47:00 EDT, Height/Length Dosing, 84.6, kg, 01/12/23 10:47:00 EDT, Weight Dosing Start Date: 04/18/23 Stop Date: 05/18/23 Status: Ordered Start: 09-09-2022 take 1 capsule by mouth once V itamin D 50,000 intl units (1.25 mg) oral capsule See Instructions, 1 cap(s) Oral As Directed tuesday-Tuesday as previously prescribed per Dr. Bill., # 24 cap(s), Refills(s) 1, Pharmacy: [facility] [id number], 160, cm, 05/13/22 13:20:00 EDT, Height/Length Dosing, 76.6, kg, 05/13/22 13:20:00 EDT,... Start Date: 09/09/22 Status: Ordered Start: 09-15-2021 Vitamin D 50,0 00 intl units (1.25 mg) oral capsule 50,000 International_Unit, Oral, As Directed, # 24 cap(s), Refills(s) 0, Pharmacy: [facility] 536, 160, cm, 09/15/21 14:38:00 EST, [...] Status: Ordered take 1 capsule by mo [facility] once daily levothyroxine (Tirosint) 112 mcg capsule [...] PM Specimens No specimens collected Procedure Location [facility] [address] [facility] [address] [place] [address] Department Of Medicine-[place] [address] Procedure Provider Vance Baires MD [facility] Work Phone: [facility] Work Phone: Radiology Study observation (narrative) [facility] Work Phone: Gastroenterology Office/Clin ic Noteon 05-16-2023 [...] calcium supplements, whoever i should opt for vkhv-zug-nujeyxk options or require a prescription for vitamin [...] worsening diarrhea. She is following up with [facility] hepatology also. 2. Vitamin D deficiency (E55.9: [...] is asymptomati (more content not included)... Normal [facility] Comment on above: Result Comment: Elec tronically [...] AM EDT With: Leandro BILL MD Where: [facility] Normal [facility] C[facility]N Telephone (GASTA5) NITHYA VASQUES ([id number]) 1965 F Date Time Provider Department 05/05/23 YAS WALL GASTA5 During your visit today, we recorded the following information about you: Annette Molina RN 05/05/2023 12:16 PM Signed Pt sent the following MCM regarding US and fibroscan results: I didn?t see these results in my chart for the [facility], so I am sending them. Can you [...] Status:Closed by YAS WALL on 05/06/23 Normal [facility] Postoperative Documentson Postoperative Documents [id number]#1.00CD:127 Normal [facility] Consent for Treatmenton 04-02 Consent for Treatment [id number] #1.00CD:127 Normal [facility] Lab Reportson 04-20-2023 Lab Reports [id number] #1.00CD:127 Normal [facility] Lab Reports [id number] #1.00CD:127 Normal [facility] US Abdomen, Limitedon 2022 US Abdomen, Limited [...] FINAL REPORT Dictated: 04/20/2023 4:51 pm Yas Rordiguez DO Signed (Electronic Signature): 04/20/2023 4:51 pm Signed by: Yas Rodriguez DO Transcribed by: DP Technologist: HW [facility] Physician Orderon 04-12-2023 Physician Order [id number] #1.00CD:127 [facility] CNPNon 2023 CNPN Telephone (GASTA5) NITHYA VASQUES ([id number]) 1965 F Date Time Provider Department 04/07/23 [...] (HCC) [K74.3] Order(s):US ABD RIGHT UPPER QUADRANT [[id number]] Order #: [id number] FUTURE US ELASTOGRAPHY LIVER [[id number]] Order #: [id number] FUTURE Prescriptions as of 2023 - alendronate [...] Encounter Status:Closed by YAS WALL on 04/07/23 [facility] Lab Reportson 03-24-2023 Lab Reports [id number]# 1.00CD:127 [facility] Consultation Noteon 03-21-20 Consultation Note [id number] #1.00CD:127 [facility] Pre-Certification Formon Pre-Certification Form [id number]# 1.00CD:127 [facility] Pre-Certification Formon Pre-Certification Form [id number]# 1.00CD:127 [facility] Pre-Certification Formon Pre-Certification Form [id number] #1.00CD:127 [facility] Retail - Clinical Noteon Retail - Clinical Note [id number] #1.00CD:127 [facility] BD Bone Density DEXAon 02-04 BD Bone [...] M.D. Transcribed by: STEFANIE Technologist: DARON Normal [facility] Consent for Treatmenton Consent for Treatment [id number] #1.00CD:127 Normal [facility] Lab Reportson 01-14-2023 Lab Reports [id number] #1.00CD:127 Normal [facility] Gastroenterology Office/Clin ic Noteon 01-13-2023 Gastroenterology Office/Clinic [...] biliary cholangitis diagnosed at the age of [id number]. There was no fibrosis based on a [...] cancer. She sees Dr. Wall at the [facility]. Review of Systems PHQ Score Initial Depression [...] up with Dr. Wall at the [facility]. She is advised to continue with vitamin [...] Elsie Peters to record this visit. JANEL clinical operations specialist and provider reviewed before signing. JANEL: [...] capsule, 500 (more content not included)... Normal [facility] Comment on above: Result Comment: Elec tronically [...] AM EDT With: Leandro BILL MD Where: [facility] Invalid Interpretation Code Personal history of colonic polyps [facility]ITH[facility] VASQUES ([id number]) 1965 F Date Time Provider Department 01/04/23 YAS WALL GASTA5 During your visit today, we recorded the following information about you: Constanza Corona RN 01/04/2023 3:19 PM Signed Received the following [employer]t message: Dr. Paradise Ortiz wanted to see [...] AM Signed Dr Rivera response sent via [employer] original AQS message. Constanza Corona RN January 05, 2023 [...] Status:Closed by CONSTANZA CORONA on 01/04/23 [facility] 01-01-2023 Albumin [Mass/Vol] 3.6 g/dL Normal 3.4-5.0 [facility] Comment on above: Performed By: #### L IVER #### [facility] [address] [place] [address] Dr. Sincere Wood Albumin/Globulin [Mass ratio] 0.9 {ratio} Normal [facility] Comment on above: Performed By: #### L IVER #### [facility] [address] [place] [address] Dr. Sincere Wood ALP [Catalytic activity/Vol] 166 U/L Critically high 46-116 [facility] Comment on above: Performed By: #### L IVER #### [facility] [address] [place] [address] Dr. Sincere Wood ALT [Catalytic activity/Vol] 49 U/L Normal 14-59 [facility] Comment on above: Performed By: #### L IVER #### [facility] [address] [place] [address] Dr. Sincere Wood AST [Catalytic activity/Vol] 27 U/L Normal 15-37 [facility] Comment on above: Performed By: #### L IVER #### [facility] [address] [place] [address] Dr. Sincere Wood BILI, CONJUGATED 0.1 mg/dL Normal 0.0-0.2 [facility] Comment on above: Performed By: #### L IVER #### [facility] [address] [place] [address] Dr. Sincere Wood Bilirubin [Mass/Vol] 0.3 mg/dL Normal 0.2-1.0 [facility] Comment on above: Performed By: #### L IVER #### [facility] [address] [place] [address] Dr. Sincere Wood Globulin (S) [Mass/Vol] 4.0 g/dL Normal [facility] Comment on above: Performed By: #### L IVER #### [facility] [address] [place] [address] Dr. Sincere Wood Protein [Mass/Vol] 7.6 g/dL Normal 6.4-8.[address] [facility] Comment on above: Performed By: #### L IVER #### [facility] [address] [place] [address] Dr. Sincere Wood MMR IMMUNITYon 11-24-2022 Mumps Abs, IgG 19.7 AU/mL Normal Immune >10.9 [facility] Comment on above: Result Comment: Nega tive <9.0 Equivocal 9.0 - 10.9 Positive >10.9 A positive result generally indicates past exposure to Mumps virus or previous vaccination. Performed By: #### M MRIMMU #### [facility] [address] [place] [address] Dr. Sincere Wood Rubella Antibodies, IgG <0.90 Critically low Immune >0.99 [facility] Comment on above: Result Comment: Non- immune <0.90 Equivocal 0.90 - 0.99 Immune >0.99 Performed By: #### M MRIMMU #### [facility] [address] [place] [address] Dr. Sincere Wood Rubeola Ab, IgG 23.4 AU/mL Normal Immune >16.4 [facility] Comment on above: Result Comment: Nega tive <13.5 Equivocal 13.5 - 16.4 Positive >16.4 Presence of antibodies to Rubeola is presumptive evidence of immunity except when acute infection is suspected. Performed By: #### M MRIMMU #### [facility] [address] [place] [address] Dr. Sincere Wood FREE T3on 10-26-2022 FREE T3 1.72 pg/mlL Critically low 2.18-3.98 [facility] Comment on above: Performed By: #### E STRADI #### [facility] [address] [place] [address] Dr. Sincere Wood FREE T4on 10-26-2022 Free T4 [Mass/Vol] 1.62 ng/dL Critically high 0.76-1.46 [facility] Comment on above: Performed By: #### F T4 #### [facility] [address] [place] [address] Dr. Sincere Wood TSHon 10-26-2022 TSH 3.966 uIU/mL Critically high 0.358-3.740 [facility] Comment on above: Performed By: #### E STRADI #### [facility] [address] [place] [address] Dr. Sincere Wood Lab Reportson 10-06-2022 Lab Reports [id number] #1.00CD:127 Normal [facility] ESTRADIOLon 09-23-2022 Estradiol 10.5 pg/mL Normal [facility] Comment on above: Result Comment: Adul t Female: Follicular phase 12.5 - 166.0 Ovulation phase 85.8 - 498.0 Luteal phase 43.8 - 211.0 Postmenopausal <6.0 - 54.7 1st trimester 215.0 - >4300.0 Ana ECLIA methodology Performed By: #### E STRADI #### [facility] [address] [place] [address] Dr. Sincere Wood FSHon 09-23-2022 FSH 56.5 mIU/mL Normal [facility] Comment on above: Result Comment: Adul t Female: Follicular phase 3.5 - 12.5 Ovulation phase 4.7 - 21.5 Luteal phase 1.7 - 7.7 Postmenopausal 25.8 - 134.8 Performed By: #### E STRADI #### [facility] [address] [place] [address] Dr. Sincere Wood TESTOSTERONE, TOTALon 2021 Testosterone [Mass/Vol] 20 ng/dL Normal 4-50 [facility] Comment on above: Performed By: #### E STRADI #### [facility] [address] [place] [address] Dr. Sincere Wood CBC AUTO DIFFon 09-22-2022 BASO # 0.0 103/ul Normal 0.0-0.1 [facility] Comment on above: Performed By: #### C BC #### [facility] [address] [place] [address] Dr. Sincere Wood Basophils/100 WBC (Bld) 0.5 % Normal 0.2-2.0 [facility] Comment on above: Performed By: #### C BC #### [facility] [address] [place] [address] Dr. Sincere Wood EO # 0.2 103/ul Normal 0.0-0.7 [facility] Comment on above: Performed By: #### C BC #### [facility] [address] [place] [address] Dr. Sincere Wood Eosinophils/100 WBC (Bld) 3.4 % Normal 0.9-7.0 [facility] Comment on above: Performed By: #### C BC #### [facility] [address] [place] [address] Dr. Sincere Wood Erythrocyte distribution width (RBC) [Ratio] 12.3 % Normal 11.0-15.0 [facility] Comment on above: Performed By: #### C BC #### [facility] [address] [place] [address] Dr. Sincere Wood Hematocrit (Bld) [Volume fraction] 36.8 % Normal 36.0-48.0 [facility] Comment on above: Performed By: #### C BC #### [facility] [address] [place] [address] Dr. Sincere Wood Hemoglobin (Bld) [Mass/Vol] 12.3 g/dL Normal 12.0-16.0 [facility] Comment on above: Performed By: #### C BC #### [facility] [address] [place] [address] Dr. Sincere Wood IG # 0.02 10e3/ul Normal 0.00-0.03 [facility] Comment on above: Performed By: #### C BC #### [facility] [address] [place] [address] Dr. Sincere Wood IG % 0.4 % Normal 0.0-0.5 [facility] Comment on above: Performed By: #### C BC #### [facility] [address] [place] [address] Dr. Sincere Wood LYMPH # 2.2 103/ul Normal 1.2-3.8 [facility] Comment on above: Performed By: #### C BC #### [facility] [address] [place] [address] Dr. Sincere Wood Lymphocytes/100 WBC (Bld) 38.4 % Normal 20.5-60.0 [facility] Comment on above: Performed By: #### C BC #### [facility] [address] [place] [address] Dr. Sincere Wood MANUAL DIFF REQ NO Normal [facility] Comment on above: Performed By: #### C BC #### [facility] [address] [place] [address] Dr. Sincere Wood MCH (RBC) [Entitic mass] 29.6 pg Normal 26.7-34.0 [facility] Comment on above: Performed By: #### C BC #### [facility] [address] [place] [address] Dr. Sincere Wood MCHC (RBC) [Mass/Vol] 33.4 g/dL Normal 29.9-35.2 [facility] Comment on above: Performed By: #### C BC #### [facility] [address] [place] [address] Dr. Sincere Wood MCV (RBC) [Entitic vol] 88.7 fL Normal 81.0-99.0 [facility] Comment on above: Performed By: #### C BC #### [facility] [address] [place] [address] Dr. Sincere Wood MONO # 0.5 103/ul Normal 0.3-0.8 [facility] Comment on above: Performed By: #### C BC #### [facility] [address] [place] [address] Dr. Sincere Wood Monocytes/100 WBC (Bld) 9.1 % Normal 1.7-12.0 [facility] Comment on above: Performed By: #### C BC #### [facility] [address] [place] [address] Dr. Sincere Wood NEUT # 2.7 103/ul Normal 1.4-6.5 [facility] Comment on above: Performed By: #### C BC #### [facility] [address] [place] [address] Dr. Sincere Wood Neutrophils/100 WBC (Bld) 48.2 % Normal 43.0-75.0 [facility] Comment on above: Performed By: #### C BC #### [facility] [address] [place] [address] Dr. Sincere Wood Platelet mean volume (Bld) [Entitic vol] 10.0 fL Normal 9.5-13.5 [facility] Comment on above: Performed By: #### C BC #### [facility] [address] [place] [address] Dr. Sincere Wood PLT 302 103/ul Normal 150-450 [facility] Comment on above: Performed By: #### C BC #### [facility] [address] [place] [address] Dr. Sincere Wood RBC 4.15 106/ul Critically low 4.20-5.40 [facility] Comment on above: Performed By: #### C BC #### [facility] [address] [place] [address] Dr. Sincere Wood WBC 5.6 103/ul Normal 4.0-11.0 [facility] Comment on above: Performed By: #### C BC #### [facility] [address] [place] [address] Dr. Sincere Wood PROF 14(COMP METB)on 022 Albumin [Mass/Vol] 3.6 g/dL Normal 3.4-5.0 [facility] Comment on above: Performed By: #### C MP #### [facility] [address] [place] [address] Dr. Sincere Wood Albumin/Globulin [Mass ratio] 0.9 {ratio} Normal [facility] Comment on above: Performed By: #### C MP #### [facility] [address] [address] [address] Sincere Wood ALP [Catalytic activity/Vol] 153 U/L Critically high 46-116 [facility] Comment on above: Performed By: #### C MP #### [facility] [address] [address] [address] Sicnere Wood ALT [Catalytic activity/Vol] 53 U/L Normal 14-59 [facility] Comment on above: Performed By: #### C MP #### [facility] [address] [address] [address] Sincere Wood Anion gap [Moles/Vol] 11.6 mmol/L Normal [facility] Comment on above: Performed By: #### C MP #### [facility] [address] [place] [address] Dr. Sincere Wood AST [Catalytic activity/Vol] 30 U/L Normal 15-37 [facility] Comment on above: Performed By: #### C MP #### [facility] [address] [place] [address] Dr. Sincere Wood Bilirubin [Mass/Vol] 0.3 mg/dL Normal 0.2-1.0 [facility] Comment on above: Performed By: #### C MP #### [facility] [address] [place] [address] Dr. Sincere Wood Calcium [Mass/Vol] 9.1 mg/dL Normal 8.5-10.1 [facility] Comment on above: Performed By: #### C MP #### [facility] [address] [place] [address] Dr. Sincere Wood Chloride [Moles/Vol] 102 mmol/L Normal 98-107 [facility] Comment on above: Performed By: #### C MP #### [facility] [facility] [address] [place] [address] Dr. Sincere Wood CO2 [Moles/Vol] 28.6 mmol/L Normal 21.0-32.0 [facility] Comment on above: Performed By: #### C MP #### [facility] [address] [address] [address] Sincere Wood Creatinine [Mass/Vol] 0.85 mg/dL Normal 0.55-1.02 [facility] Comment on above: Performed By: #### C MP #### [facility] [address] [address] [address] Sincere Wood EGFR-AF [place] >60 Normal >=60 [facility] Comment on above: Performed By: #### C MP #### [facility] [address] [address] [address] Sincere Wood EGFR-NON AF [place] >60 Normal >=60 [facility] Comment on above: Performed By: #### C MP #### [facility] [address] [place] [address] Dr. Sincere Wood Globulin (S) [Mass/Vol] 4.0 g/dL Normal [facility] Comment on above: Performed By: #### C MP #### [facility] [address] [place] [address] Dr. Sincere Wood Glucose [Mass/Vol] 89 mg/dL Normal 74-[address] [facility] Comment on above: Performed By: #### C MP #### [facility] [address] [place] [address] Dr. Sincere Wood Potassium [Moles/Vol] 4.2 mmol/L Normal 3.5-5.1 [facility] Comment on above: Performed By: #### C MP #### [facility] [address] [place] [address] Dr. Sincere Wood Protein [Mass/Vol] 7.6 g/dL Normal 6.4-8.[address] [facility] Comment on above: Performed By: #### C MP #### [facility] [address] [place] [address] Dr. Sincere Wood Sodium [Moles/Vol] 138 mmol/L Normal 136-[address] [facility] Comment on above: Performed By: #### C MP #### [facility] [address] [place] [address] Dr. Sincere Wood Urea nitrogen [Mass/Vol] 16.0 mg/dL Normal 7.0-18.0 [facility] Comment on above: Performed By: #### C MP #### [facility] [address] [place] [address] Dr. Sincere Wood Urea nitrogen/Creatinine [Mass ratio] 18.8 mg/mg Normal [facility] Comment on above: Performed By: #### C MP #### [facility] [address] [place] [address] Dr. Sincere Wood PROF 14(COMP METB)on 022 Albumin [Mass/Vol] 3.6 g/dL Normal 3.4-5.0 [facility] Comment on above: Performed By: #### C MP #### [facility] [address] [place] [address] Dr. Sincere Wood Albumin/Globulin [Mass ratio] 0.9 {ratio} Normal [facility] Comment on above: Performed By: #### C MP #### [facility] [address] [place] [address] Dr. Sincere Wood ALP [Catalytic activity/Vol] 138 U/L Critically high 46-116 [facility] Comment on above: Performed By: #### C MP #### [facility] [address] [place] [address] Dr. Sincere Wood ALT [Catalytic activity/Vol] 46 U/L Normal 14-59 [facility] Comment on above: Performed By: #### C MP #### [facility] [address] [place] [address] Dr. Sincere Wood Anion gap [Moles/Vol] 13.4 mmol/L Normal [facility] Comment on above: Performed By: #### C MP #### [facility] [address] [place] [address] Dr. Sincere Wood AST [Catalytic activity/Vol] 35 U/L Normal 15-37 [facility] Comment on above: Performed By: #### C MP #### [facility] [address] [place] [address] Dr. Sincere Wood Bilirubin [Mass/Vol] 0.4 mg/dL Normal 0.2-1.0 [facility] Comment on above: Performed By: #### C MP #### [facility] [address] [place] [address] Dr. Sincere Wood Calcium [Mass/Vol] 9.1 mg/dL Normal 8.5-10.1 [facility] Comment on above: Performed By: #### C MP #### [facility] [address] [place] [address] Dr. Sincere Wood Chloride [Moles/Vol] 105 mmol/L Normal 98-107 [facility] Comment on above: Performed By: #### C MP #### [facility] [address] [place] [address] Dr. Sincere Wood CO2 [Moles/Vol] 26.2 mmol/L Normal 21.0-32.0 [facility] Comment on above: Performed By: #### C MP #### [facility] [address] [place] [address] Dr. Sincere Wood Creatinine [Mass/Vol] 0.76 mg/dL Normal 0.55-1.02 [facility] Comment on above: Performed By: #### C MP #### [facility] [address] [place] [address] Dr. Sincere Wood EGFR-AF [place] >60 Normal >=60 [facility] Comment on above: Performed By: #### C MP #### [facility] [address] [place] [address] Dr. Sincere Wood EGFR-NON AF [place] >60 Normal >=60 [facility] Comment on above: Performed By: #### C MP #### [facility] [address] [place] [address] Dr. Sincere Wood Globulin (S) [Mass/Vol] 4.0 g/dL Normal [facility] Comment on above: Performed By: #### C MP #### [facility] [address] [place] [address] Dr. Sincere Wood Glucose [Mass/Vol] 103 mg/dL Normal 74-[address] [facility] Comment on above: Performed By: #### C MP #### [facility] [address] [address] [address] Sincere Wood Potassium [Moles/Vol] 4.6 mmol/L Normal 3.5-5.1 [facility] Comment on above: Performed By: #### C MP #### [facility] [address] [address] [address] Sincere Wood Protein [Mass/Vol] 7.6 g/dL Normal 6.4-8.2 [facility] Comment on above: Performed By: #### C MP #### [facility] [address] [address] [address] Sincere Wood Sodium [Moles/Vol] 140 mmol/L Normal 136-145 [facility] Comment on above: Performed By: #### C MP #### [facility] [address] [address] [address] Sincere Wood Urea nitrogen [Mass/Vol] 21.0 mg/dL Critically high 7.0-18.0 [facility] Comment on above: Performed By: #### C MP #### [facility] [address] [address] [address] Sincere Wood Urea nitrogen/Creatinine [Mass ratio] 27.6 mg/mg Normal [facility] Comment on above: Performed By: #### C MP #### [facility] [address] [address] [address] Sincere Wood SCREENING MAMMOGRAM W/PRINCE, BILATERAL*on [...] VERY IMPORTANT TO YOUR HEALTH. THE CURRENT [place] [employer] GUIDELINES RECOMMENDS ANNUAL MAMMOGRAPHY BEGINNING AT AGE 41 THIS FACILITY USES A REMINDER SYSTEM TO ENSURE ALL PATIENTS RECEIVE REMINDER NOTIFICATIONS AT THE APPROPRIATE TIME BASED ON THE RECOMMENDATIONS OF THIS EXAM. Board Certified Radiologist. Accredited by the ACR and FDA. Report reported and signed by Davian Lewis on 03/29/2022 1139 Normal [facility] Specialist CBC AUTO DIFFon 02-18-2022 BASO # 0.0 103/ul Normal 0.0-0.1 [facility] Comment on above: Performed By: #### C BC #### [facility] [address] [place] [address] Dr. Sincere Wood Basophils/100 WBC (Bld) 0.7 % Normal 0.2-2.0 [facility] Comment on above: Performed By: #### C BC #### [facility] [address] [place] [address] Dr. Sincere Wood EO # 0.2 103/ul Normal 0.0-0.7 [facility] Comment on above: Performed By: #### C BC #### [facility] [address] [place] [address] Dr. Sincere Wood Eosinophils/100 WBC (Bld) 3.1 % Normal 0.9-7.0 [facility] Comment on above: Performed By: #### C BC #### [facility] [address] [place] [address] Dr. Sincere Wood Erythrocyte distribution width (RBC) [Ratio] 13.0 % Normal 11.0-15.0 [facility] Comment on above: Performed By: #### C BC #### [facility] [address] [place] [address] Dr. Sincere Wood Hematocrit (Bld) [Volume fraction] 38.8 % Normal 36.0-48.0 [facility] Comment on above: Performed By: #### C BC #### [facility] [address] [place] [address] Dr. Sincere Wood Hemoglobin (Bld) [Mass/Vol] 12.2 g/dL Normal 12.0-16.0 [facility] Comment on above: Performed By: #### C BC #### [facility] [address] [place] [address] Dr. Sincere Wood IG # 0.03 10e3/ul Normal 0.00-0.03 [facility] Comment on above: Performed By: #### C BC #### [facility] [address] [place] [address] Dr. Sincere Wood IG % 0.5 % Normal 0.0-0.5 [facility] Comment on above: Performed By: #### C BC #### [facility] [address] [place] [address] Dr. Sincere Wood LYMPH # 1.9 103/ul Normal 1.2-3.8 [facility] Comment on above: Performed By: #### C BC #### [facility] [address] [place] [address] Dr. Sincere Wood Lymphocytes/100 WBC (Bld) 34.4 % Normal 20.5-60.0 [facility] Comment on above: Performed By: #### C BC #### [facility] [address] [place] [address] Dr. Sincere Wood MANUAL DIFF REQ NO Normal [facility] Comment on above: Performed By: #### C BC #### [facility] [address] [place] [address] Dr. Sincere Wood MCH (RBC) [Entitic mass] 30.1 pg Normal 26.7-34.0 [facility] Comment on above: Performed By: #### C BC #### [facility] [address] [place] [address] Dr. Sincere Wood MCHC (RBC) [Mass/Vol] 31.4 g/dL Normal 29.9-35.2 [facility] Comment on above: Performed By: #### C BC #### [facility] [address] [place] [address] Dr. Sincere Wood MCV (RBC) [Entitic vol] 95.8 fL Normal 81.0-99.0 [facility] Comment on above: Performed By: #### C BC #### [facility] [address] [place] [address] Dr. Sincere Wood MONO # 0.5 103/ul Normal 0.3-0.8 [facility] Comment on above: Performed By: #### C BC #### [facility] [address] [address] [address] Sincere Wood Monocytes/100 WBC (Bld) 8.8 % Normal 1.7-12.0 [facility] Comment on above: Performed By: #### C BC #### [facility] [address] [address] [address] Sincere Wood NEUT # 2.9 103/ul Normal 1.4-6.5 [facility] Comment on above: Performed By: #### C BC #### [facility] [address] [address] [address] Sincere Wood Neutrophils/100 WBC (Bld) 52.5 % Normal 43.0-75.0 [facility] Comment on above: Performed By: #### C BC #### [facility] [address] [address] [address] Sincere Wood Platelet mean volume (Bld) [Entitic vol] 10.8 fL Normal 9.5-13.5 [facility] Comment on above: Performed By: #### C BC #### [facility] [address] [address] [address] Sincere Wood PLT 289 103/ul Normal 150-450 [facility] Comment on above: Performed By: #### C BC #### [facility] [address] [address] [address] Sincere Wood RBC 4.05 106/ul Critically low 4.20-5.40 [facility] Comment on above: Performed By: #### C BC #### [facility] [address] [address] [address] Sincere Wood WBC 5.6 103/ul Normal 4.0-11.0 [facility] Comment on above: Performed By: #### C BC #### [facility] [address] [place] [address] Dr. Sincere Wood GLYCOHEMOGLOBIN A1Con 2021 ADA RECOMMENDATION SEE BELOW Normal [facility] Comment on above: Result Comment: ADA RECOMMENDED LIMIT 4.0 - 6.0 ADA THERAPEUTIC TARGET < 7.0 ACTION SUGGESTED > 7.0 Performed By: #### A 1C #### [facility] [address] [place] [address] Dr. Sincere Wood Glucose [Mass/Vol] 117 mg/dL Normal [facility] Comment on above: Performed By: #### A 1C #### [facility] [address] [place] [address] Dr. Sincere Wood HbA1c (Bld) [Mass fraction] 5.7 % Normal 4.5-6.2 [facility] Comment on above: Performed By: #### A 1C #### [facility] [address] [place] [address] Dr. Sincere Wood PROF 14(COMP METB)on 022 Albumin [Mass/Vol] 3.4 g/dL Normal 3.4-5.0 [facility] Comment on above: Performed By: #### C MP #### [facility] [address] [place] [address] Dr. Sincere Wood Albumin/Globulin [Mass ratio] 0.8 {ratio} Normal [facility] Comment on above: Performed By: #### C MP #### [facility] [address] [place] [address] Dr. Sincere Wood ALP [Catalytic activity/Vol] 150 U/L Critically high 46-116 [facility] Comment on above: Performed By: #### C MP #### [facility] [address] [place] [address] Dr. Sincere Wood ALT [Catalytic activity/Vol] 85 U/L Critically high 14-59 [facility] Comment on above: Performed By: #### C MP #### [facility] [address] [address] [address] Sincere Wood Anion gap [Moles/Vol] 11.4 mmol/L Normal [facility] Comment on above: Performed By: #### C MP #### [facility] [address] [place] [address] Dr. Sincere Wood AST [Catalytic activity/Vol] 46 U/L Critically high 15-37 [facility] Comment on above: Performed By: #### C MP #### [facility] [address] [address] [address] Sincere Wood Bilirubin [Mass/Vol] 0.3 mg/dL Normal 0.2-1.0 [facility] Comment on above: Performed By: #### C MP #### [facility] [address] [address] [address] Sincere Wood Calcium [Mass/Vol] 8.9 mg/dL Normal 8.5-10.1 [facility] Comment on above: Performed By: #### C MP #### [facility] [address] [address] [address] Sincere Wood Chloride [Moles/Vol] 104 mmol/L Normal 98-107 [facility] Comment on above: Performed By: #### C MP #### [facility] [address] [address] [address] Sincere Wood CO2 [Moles/Vol] 28.6 mmol/L Normal 21.0-32.0 [facility] Comment on above: Performed By: #### C MP #### [facility] [address] [address] [address] Sincere Wood Creatinine [Mass/Vol] 0.69 mg/dL Normal 0.55-1.02 [facility] Comment on above: Performed By: #### C MP #### [facility] [address] [address] [address] Sincere Wood EGFR-AF [place] >60 Normal >=60 [facility] Comment on above: Performed By: #### C MP #### [facility] [address] [address] [address] Sincere Wood EGFR-NON AF [place] >60 Normal >=60 [facility] Comment on above: Performed By: #### C MP #### [facility] [address] [address] [address] Sincere Wood Globulin (S) [Mass/Vol] 4.1 g/dL Normal [facility] Comment on above: Performed By: #### C MP #### [facility] [address] [address] [address] Sincere Wood Glucose [Mass/Vol] 96 mg/dL Normal 74-[address] [facility] Comment on above: Performed By: #### C MP #### [facility] [address] [address] [address] Sincere Wood Potassium [Moles/Vol] 4.0 mmol/L Normal 3.5-5.1 [facility] Comment on above: Performed By: #### C MP #### [facility] [address] [address] [address] Sincere Wood Protein [Mass/Vol] 7.5 g/dL Normal 6.4-8.[address] [facility] Comment on above: Performed By: #### C MP #### [facility] [address] [address] [address] Sincere Wood Sodium [Moles/Vol] 140 mmol/L Normal 136-145 [facility] Comment on above: Performed By: #### C MP #### [facility] [address] [address] [address] Sincere Wood Urea nitrogen [Mass/Vol] 19.0 mg/dL Critically high 7.0-18.0 [facility] Comment on above: Performed By: #### C MP #### [facility] [address] [address] [address] Sincere Wood Urea nitrogen/Creatinine [Mass ratio] 27.5 mg/mg Normal [facility] Comment on above: Performed By: #### C MP #### [facility] [address] [address] [address] Sincere Wood Free T3on 11-09-2021 FT3 2.72 pg/mL Normal 2.00-4.40 [facility] Procedures Analyst Comment on above: Performed By: #### F T4, TSH, VITD, FT3 #### [facility] [address] [place], [place] [id number] Free T4on 11-09-2021 Free T4 [Mass/Vol] 1.50 ng/dL Normal 0.80-1.80 [facility] Procedures Analyst Comment on above: Performed By: #### F T4, TSH, VITD, FT3 #### [facility] [address] [place], [place] [id number] TSHon 11-09-2021 TSH 0.298 uIU/mL Low 0.400-4.500 [facility] Procedures Analyst Comment on above: Performed By: #### F T4, TSH, VITD, FT3 #### [facility] [address] [facility] [place] [id number] Vitamin D 25-OHon 11-09-2021 VIT D 25 OH 53 ng/ml Normal >29 [facility] Procedures Analyst Comment on above: Result Comment: Bernie min D Status Deficiency <20 ng/mL Insufficiency 20-29 ng/mL Optimal 30-100 ng/mL Possible Toxicity >=150 ng/mL Performed By: #### F T4, TSH, VITD, FT3 #### [facility] [address] [facility] [place] [id number] Vital Signs Date Time Vital Sign Value Performing Clinician Facility 10-06-2023 14:50-0500 Diastolic blood pressure 67 mm[Hg] Vance Baires MD Work Phone: [facility] 10-06-2023 14:50-0500 Heart rate 81 /min Vance Baires MD Work Phone: [facility] 10-06-2023 14:50-0500 Respiratory rate 17 /min Vance Baires MD Work Phone: [facility] 10-06-2023 14:50-0500 SaO2% (BldA) [Mass fraction] 97 % Vance Baires MD Work Phone: [facility] 10-06-2023 14:50-0500 Systolic blood pressure 105 mm[Hg] Vance Baires MD Work Phone: [facility] 10-06-2023 14:20-0500 Body temperature 96.69 [degF] Vance Baries MD Work Phone: [facility] 10-06-2023 12:12-0500 Body height 160 cm Vance Baires MD Work Phone: [facility] 10-06-2023 12:12-0500 Body mass index (BMI) [Ratio] 31.53 kg/m2 Vance Baires MD Work Phone: [facility] 10-06-2023 12:12-0500 Body weight 80.74 kg Vance Baires MD Work Phone: [facility] 09-21-2023 10:36-0500 Body mass index (BMI) [Ratio] 32.65 kg/m2 Hermes Caballero [employer] OPERATOR Work Phone: [facility] 09-21-2023 10:36-0500 Body temperature 98.1 [degF] Hermes Caballero PASSENGER [employer] CONDUCTOR-DRYING TUMBLER OPERATOR Work Phone: [facility] 09-21-2023 10:36-0500 Body weight 83.6 kg Hermes Caballero PASSENGER CAR CONDUCTOR-DRYING TUMBLER OPERATOR Work Phone: [facility] 09-21-2023 10:36-0500 Diastolic blood pressure 69 mm[Hg] Hermes Caballero PASSENGER CAR CONDUCTOR-DRYING TUMBLER OPERATOR Work Phone: [facility] 09-21-2023 10:36-0500 Heart rate 85 /min Hermes Caballero PASSENGER CAR CONDUCTOR-DRYING TUMBLER OPERATOR Work Phone: [facility] 09-21-2023 10:36-0500 Respiratory rate 16 /min Hermes Caballero PASSENGER CAR CONDUCTOR-DRYING TUMBLER OPERATOR Work Phone: [facility] 09-21-2023 10:36-0500 SaO2% (BldA) [Mass fraction] 98 % Hermes Caballero PASSENGER CAR CONDUCTOR-DRYING TUMBLER OPERATOR Work Phone: [facility] 09-21-2023 10:36-0500 Systolic blood pressure 101 mm[Hg] Hermes Caballero PASSENGER CAR CONDUCTOR-DRYING TUMBLER OPERATOR Work Phone: [facility] 05-12-2023 13:45-0400 Blood Pressure Location [facility] 05-12-2023 13:45-0400 Body temperature 97.88 [degF] Reeves SALAM [facility] 05-12-2023 13:45-0400 Diastolic blood pressure 75 mm[Hg] Reeves SALAM [facility] 05-12-2023 13:45-0400 Heart rate 69 /min Reeves SALAM [facility] 05-12-2023 13:45-0400 Respiratory rate 16 /min Reeves SALAM [facility] 05-12-2023 13:45-0400 Systolic blood pressure 111 mm[Hg] Reeves SALAM [facility] 01-12-2023 10:45-0400 Blood Pressure Location Reeves SALAM [facility] 01-12-2023 10:45-0400 Diastolic blood pressure 86 mm[Hg] Reeves SALAM [facility] 01-12-2023 10:45-0400 Heart rate 75 /min Reeves SALAM [facility] 01-12-2023 10:45-0400 Respiratory rate 16 /min Reeves SALAM [facility] 01-12-2023 10:45-0400 Systolic blood pressure 124 mm[Hg] Reeves SALAM [facility] 05-13-2022 13:18-0400 Blood Pressure Location Reeves SALAM [facility] 05-13-2022 13:18-0400 Diastolic blood pressure 76 mm[Hg] Reeves SALAM [facility] 05-13-2022 13:18-0400 Heart rate 68 /min Reeves SALAM [facility] 05-13-2022 13:18-0400 Respiratory rate 16 /min Reeves SALAM [facility] 05-13-2022 13:18-0400 Systolic blood pressure 110 mm[Hg] Reeves SALAM [facility] Encounters Encounter Date Encounter Type Care Provider Facility Start: 01-18-2024 ambulatory [facility] Facility: [facility] Start: 11-14-2023 ambulatory [facility] Facility: [facility] Start: 10-06-2023 End: 10-06-2023 Subsequent hospital visit by physician Vance Baires MD Work Phone: [facility] Comment on above: BRCA positive; Primary biliary cholangitis (CMS/HCC); Familial malignant neoplasm of pancreas (CMS/HCC) Start: 10-05-2023 End: 10-05-2023 Phys/qhp telephone evaluation 21-30 min Vance Baires MD Work Phone: [facility] Comment on above: BRCA positive (Prima ry Dx); Primary biliary cholangitis (CMS/HCC); Familial malignant neoplasm of pancreas (CMS/HCC) Start: 09-21-2023 End: 09-22-2023 ambulatory HERMES CABALLERO [facility] Start: 09-21-2023 End: 09-21-2023 Office outpatient new 30 minutes Hermes Caballero PASSENGER CAR CONDUCTOR-DRYING TUMBLER OPERATOR Work Phone: [facility] Comment on above: BRCA positive (Prima ry Dx) Start: 09-08-2023 ambulatory [facility] Start: 09-06-2023 End: 09-06-2023 ambulatory [facility] Start: 08-09-2023 End: 08-10-2023 ambulatory [facility] Start: 05-12-2023 End: 05-13-2023 ambulatory GRAVES BRANT Facility:[facility] Start: 05-12-2023 End: 05-12-2023 Patient encounter procedure [facility] Start: 05-05-2023 Telephone encounter Yas Cardenas MD Work Phone: Gastroenterology Comment on above: Results Start: 04-20-2023 End: 04-20-2023 ambulatory GRAVES ESTEFANIAINMariam [facility] Start: 04-20-2023 End: 04-20-2023 Patient encounter procedure YAS WALL [facility] Start: 2023 Telephone encounter Yas Cardenas MD Work Phone: Gastroenterology Comment on above: Results Start: 04-06-2023 End: 04-06-2023 ambulatory Yas Wall MD Work Phone: Gastroenterology Comment on above: Fibroscan (ultrasoun d) Primary biliary chol angitis (HCC) (Primary Dx) Start: 04-06-2023 End: 04-06-2023 Telemedicine consultation with patient Yas Wall MD Work Phone: [facility] Start: 02-03-2023 End: 02-04-2023 ambulatory [facility] Facility[facility] Start: 02-03-2023 End: 02-03-2023 Patient encounter procedure Leandro ALEMANAM [facility] Start: 01-12-2023 End: 01-13-2023 ambulatory [facility] Facility:[facility] Start: 01-12-2023 End: 01-12-2023 Patient encounter procedure Leandro BILL [facility] Start: 01-04-2023 Telephone encounter Yas Cardenas [...] patient Yas Wall MD Work Phone: [facility] Start: 09-22-2022 End: 09-23-2022 ambulatory GRAVES H FAWWAD Facility:[facility] Start: 05-13-2022 End: 05-13-2022 Patient encounter procedure Leandro BILL [facility] Start: 05-07-2022 End: 05-08-2022 ambulatory SHAIKH Nirali GUO Facility:[facility] Start: 03-03-2022 End: 03-03-2022 ambulatory Yas Wall MD Work Phone: Gastroenterology Comment on above: Primary biliary chol angitis (HCC) Start: 03-03-2022 End: 03-03-2022 Telemedicine consultation with patient Yas Wall MD Work Phone: [facility] Start: 03-02-2022 Telephone encounter Shwetha Rodas [...] MD Work Phone: Start: 12-29-2020 Colonoscopy [facility] Start: 10-29-2020 Adult depression screening assessment Shwethablane Pattersonacre Appendectomy MOMENTFACE SRO section [facility] Tonsillectomy and adenoidectomy [facility] Plan of Treatment Date Care Activity Detail Author Start: 11-23-2032 DTaP/Tdap/Td Vaccine s (2 - Td or Tdap) DTaP/Tdap/Td Vaccines (2 - Td or Tdap) [facility] Start: 12-29-2030 Screening for malign ant neoplasm of colon [facility] Start: 03-26-2026 LIPID SCREEN LIPID SCREEN [facility] Start: 03-30-2024 Mammography MAMMOGRAM [facility] Start: 03-30-2024 Screening for malign ant neoplasm of breast Mammogram [facility] Start: 03-26-2024 DIABETES SCREEN DIABETES SCREEN [facility] Start: 10-18-2023 End: 10-18-2023 Patient encounter procedure 10/18/2023 1:00 PM EST Office Visit [facility] [address] [place] [address] Kely Guevara, PASSENGER CAR CONDUCTOR-DRYING TUMBLER OPERATOR [address] [address] [facility] Start: 10-06-2023 End: 10-06-2023 Patient encounter procedure 10/06/2023 2:00 PM EST Appointment [facility] [address] [place] [id number] [place] [address] [facility] Department [place] [address] [place] [address] [place] [address] Yulia Droman RN [facility] Start: 10-05-2023 End: 10-05-2024 Endoscopic Ultrasound (Upper) Endoscopic Ultrasound (Upper) Endoscopy Routine 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) Expected: 10/05/2023, Expires: 10/05/2024 [facility] Service Area Work Phone: Comment on above: Expected: 10/05/2023 , Expires: 10/05/2024 Start: 10-05-2023 End: 10-05-2023 Telemedicine consultation with patient 10/05/2023 9:[address] [facility] [address] [facility] [address] [place] [id number] [place] [address] [facility], [facility] [place] [address] [facility] Start: 06-03-2023 Influenza [facility] Start: 10-03-2022 DEPRESSION ASSESSMENT DEPRESSION ASS ESSMENT [facility] Start: 06-03-2022 [facility] Start: 10-29-2021 Adult depression screening assessment DEPRESSION SCREENING [facility] Start: 07-30-2021 COVID-19 VACCINE (2 - Booster for Jarvis series) COVID-19 VACCINE (2 - Booster for Jarvis series) [facility] Start: 2016 SHINGRIX VACCINE (1 of 2) SHINGRIX VACCINE (1 of 2) [facility] Start: 2016 Zoster Vaccines (1 of 2) Zoste r Vaccines (1 of 2) [facility] Start: 2011 COLOGUARD (FIT-DNA) COLOGUARD (FIT-D NA) [facility] Start: 2011 Colonoscopy COLONOSCOPY [facility] Start: 2011 COLORECTAL CANCER SCREENING COLORECTAL CANCER SCREENING [facility] Start: [address] COLONOGRAPHY [facility] Start: 2011 FECAL OCCULT BLOOD FECAL OCCULT BLOO D [facility] Start: 2011 SIGMOIDOSCOPY SIGMOIDOSCOPY [facility] Start: 2008 PAP TESTING PAP TESTING [facility] Start: 2006 Mammography MAMMOGRAM [facility] Start: 1996 HPV TESTING HPV TESTING [facility] Start: 1987 PAP TESTING PAP TESTING [facility] Start: 1987 Screening for malign ant neoplasm of cervix [facility] Start: 1985 Urine microalbumin profile DTAP,TDAP,TD (1 - Tdap) [facility] Start: 1984 Diabetes mellitus screening Diabetes Screening [facility] Start: 1984 Hepatitis C screening Hepatitis C Sc reening [facility] Start: 1984 HIV SCREENING HIV SCREENING [facility] Start: 1972 PNEUMOCOCCAL (1 - PCV) PNEUMOCOCCAL (1 - PCV) [facility] Start: 1966 HIV screening HIV Screening [facility] Start: 1966 Lipid panel Lipid Panel [facility] Start: 1966 Screening for malign ant neoplasm of colon [facility] Start: 1966 Thyroid stimulating hormone measurement TSH Level [facility] Start: 1966 Yearly Adult Physical Yearly Adult P hysical [facility] End: 05-06-2024 Ultrasound elastography parenchyma US ELASTOGRAPHY LIVER Radiology Routine Primary biliary cholangitis (HCC) 1 Occurrences starting 2023 until 05/06/2024 [facility] Work Phone: Comment on above: 1 Occurrences starti ng 2023 until 05/06/2024 End: 05-06-2024 US ABD RIGHT UPPER QUADRANT US ABD RIGHT UPPER QUADRANT Radiology Routine Primary biliary cholangitis (HCC) 1 Occurrences starting 2023 until 05/06/2024 [facility] Work Phone: Comment on above: 1 Occurrences starti ng 2023 until 05/06/2024 [facility] Immunizations Immunization Date Immunization Notes Care Provider Gin lechuga 11-25-2022 measles, mumps and rubella virus vaccine Reeves SAL[facility] 11-23-2022 tetanus toxoid, reduced diphtheria toxoid, and acellular pertussis vaccine, adsorbed Reeves SALAM [facility] 06-04-2021 COVID-19 vaccine, vector-nr, [id number], PF, 0.5 mL Reeves SALAM [facility] 03-14-2014 hepatitis A vaccine, adult dosage Reeves SALAM [facility] 03-14-2014 hepatitis B vaccine, adult dosage Reeves SALAM [facility] 11-12-2013 hepatitis B vaccine, adult dosage Reeves SALAM [facility] 09-06-2013 hepatitis A vaccine, adult dosage Reeves SALAM [facility] 09-06-2013 hepatitis B vaccine, adult dosage Reeves SALAM [facility] NEGATED: Highlighted row has not occurred!05-13-2022 influenza virus vaccine, unspecified formulation Reeves SALAM [facility] NEGATED: Highlighted row has not occurred!09-15-2021 influenza virus vaccine, unspecified formulation Leandro ALEMANAM [facility] Payers Date Payer Category Payer Unknown BILL KHAN [facility] RAYMUNDO [id number] 2021-Present [phone] [address] [place] [address] Indemnity [id number] 2021 Unknown [id number] 2021 Unknown [id number] 1966 Unknown [id number] 1966 Unknown [id number] [id number] 1966 Unknown [id number] [id number] 1966 Unknown [id number] [id number] 1966 Unknown [id number] [id number] 1966 Unknown [id number] 2.16.840.1.273469.3.579.2.593 1966 Unknown [id number] 2.16.840.1.998001.3.579.2.593 1966 Unknown [id number] 2.16.840.1.441683.3.579.2.727 1966 Unknown [id number] 2.16.840.1.232075.3.579.2.727 1966 Unknown [id number] 2.16.840.1.658545.3.579.2.727 1966 Unknown [id number] 2.16.840.1.826378.3.579.2.727 1966 Unknown [id number] [id number] 1966 Unknown [id number] [id number] 1966 Unknown [id number] [id number] 4 1966 Unknown [id number] [id number] 4 1966 Unknown [id number] [id number] 5 1966 Unknown [id number] 5 Social History Date Type Detail Facility Start: 05-13-2022 End: 09-21-2023 Tobacco smoking status VAIS Never smoked tobacco [facility] Start: 01-21-2021 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) [facility] Start: 1965 Sex Assigned At Not on file [facility] Tobacco smoking status Never [facility] Start: 04-06-2023 End: 10-06-2023 Sex Assigned At Female [facility] Start: 11-13-2019 End: 09-21-2023 Tobacco use and exposure Smokeless tobacco non-user [facility] Start: 04-06-2023 End: 10-06-2023 History of Social function [facility] Start: 09-21-2023 End: 10-06-2023 Alcohol intake Lifetime non-drinker (finding) [facility] Work Phone: Start: 09-08-2023 Sexual orientation Heterosexual (sangita becker) [facility] Work Phone: Start: 09-11-2023 End: 10-05-2023 Exposure to SARS-CoV-2 (event) Not sure [facility] NEGATED: Highlighted rowStart: BRITTANEY History of tobacco use Passive smoker [facility] Work Phone: Functional Status Date Assessment Result Facility 05-12-2023 Functional Status N/A [facility] 01-12-2023 Functional Status N/A [facility] 05-13-2022 Functional Status N/A [facility] Clinical Notes 03-02-2022 to 10-06-2023 Dhruv Petit MD - 10/06/2023 2:00 PM Ellis Petit MD - 10/06/2023 2:00 PM Kassy Baires MD - 10/05/2023 9:00 AM Dominga Caballero APRN-[facility] - 09/21/2023 11:00 AM ESTLaboratoryRadiologyLaboratory Note Date [...] schedule for EUS. Total time 22 minutes. [facility] Work Phone: 10-06-2023 History and physical note [...] time 22 minutes. documented in this encounter [facility] Work Phone: 10-05-2023 History of Present illness [...] time 22 minutes. documented in this encounter [facility] Work Phone: 09-21-2023 History of Present illness [...] No hx of OCPs , Dr. 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 Family History: -Cousin with [id number] mutation. -Maternal aunt with BRCA2 pathogenic mutation [...] age, at 68. -Paternal cousin with cancer [id number]-kiwqchewi at unknown age. -Two paternal cousins once removed with brain cancer, at 27 and 25 respectively. -Paternal grandmother of ovarian cancer at unknown age. -Two paternal great aunt with cancer zqz-[id number]-kduwnlvlg at unknown age. Objective Visit Vitals BP [...] and then surgery. documented in this encounter [facility] Work Phone: 05-06-2023 Miscellaneous Notes Fibroscan w Ekpa 4.8 Us stable Pt sent the following MCM regarding US and fibroscan results: I didn t see these results in my chart for the [facility], so I am sending them. Can you see that Dr. Mandeep Mendez sees these? Pt uploaded images of results under scanned docs. Results not viewable in Care Everywhere at this time. See scanned docs for results review. Annette Molina RN May 05, 2023 12:16 PM documented in this encounter [facility] 2023 Miscellaneous Notes Pt notified via original [...] 10:17 AM documented in this encounter [facility] 04-06-2023 Note HNO ID: [id number] Author: Yas Wall MD Service: ? Author Type: Physician Type: Progress Notes Filed: 04/10/2023 8:40 AM Note Text: VIRTUAL VISIT PROGRESS NOTE This is a virtual visit using [employer] video visit. It required patient-provider interaction for the medical decision making as documented below. I have communicated my name and active licensure. The patient's identity and physical location were verified at the time of this visit. Either the patient or their legal public relations representative has been informed of the risks and benefits of -- and alternatives to -- treatment through a remote evaluation and consents to proceed with the evaluation remotely. Nithya Vasques is a 57 year old female seen for followup of PBC, diagnosed ~12/2005, after initial evaluation for persistent pruritus but nl liver enzymes -s/p liver biopsy done at [facility] 07/06/2013 w early stage disease Restarted [...] 09/2019 -s/p T+A -s/p appy age 18 -[id number], s/p CS x 1 -h/o hypothyroidism -h/o osteopenia -h/o pre-diabetes Since last seen -labs done 03/28/[address] [facility] Ast 32 Alt 58 Alkphos 150 Alb 3.5 T bili 0.3 -s/p mammogram done - wnl -s/p BMD done last at [facility] - told osteopenia, but no worse -weight stable ~ 175#, 5'2 (BMI 31.1) -continuing on malathi (1250 mg/d , equivalent to 15.9577037401 mg/kg/d) along w fenofibrate, ocaliva (2.5) - worried about increasing itching -had fibroscan done at [facility] ~ 1 -2 yrs HISTORY REVIEWED [...] early stage fibrosis if any; repeated at [facility] (?results) Last BMD done at [facility] 12/2019 -> osteropenia (unchanged) Still w mildly elevated alk phos on labs; concerned re risk of pruritus if increased dose of ocaliva vs loose stools Long discussion today regarding issues and options PLAN: Suggested: 1. PBC -continue malathi dose (1250 mg/d ) - Continue fenofibrate at current dose -continue current dose of ocaliva -repeat VCTE (vs ARFII) at [facility]; if no change in Ekpa, would hold off on making any dose changes, but if suggestion of worsening,would have a low threshold to incr dose -serial labs -BMD locally per protocol Follow-up on the phone RTC ~1 yr Yas Wall MD [facility] 04-06-2023 History of Present illness Narrative VIRTUAL VISIT PROGRESS NOTE This is a virtual visit using [employer] video visit. It required patient-provider interaction for the medical decision making as documented below. I have communicated my name and active licensure. The patient's identity and physical location were verified at the time of this visit. Either the patient or their legal public relations representative has been informed of the risks and benefits of -- and alternatives to -- treatment through a remote evaluation and consents to proceed with the evaluation remotely. Nithya Vasques is a 57 year old female seen for followup of PBC, diagnosed ~12/2005, after initial evaluation for persistent pruritus but nl liver enzymes -s/p liver biopsy done at [facility] 07/06/2013 w early stage disease Restarted [...] 09/2019 -s/p T+A -s/p appy age 18 -T6G5-7-8-3, s/p CS x 1 -h/o hypothyroidism -h/o osteopenia -h/o pre-diabetes Since last seen -labs done 03/28/[address] [facility] Ast 32 Alt 58 Alkphos 150 Alb 3.5 T bili 0.3 -s/p mammogram done - wnl -s/p BMD done last at [facility] - told osteopenia, but no worse -weight stable ~ 175#, 5'2 (BMI 31.1) -continuing on malathi (1250 mg/d , equivalent to 15.1091298102 mg/kg/d) along w fenofibrate, ocaliva (2.5) - worried about increasing itching -had fibroscan done at [facility] ~ 1 -2 yrs HISTORY REVIEWED [...] early stage fibrosis if any; repeated at [facility] (?results) Last BMD done at [facility] 12/2019 -> osteropenia (unchanged) Still w mildly elevated alk phos on labs; concerned re risk of pruritus if increased dose of ocaliva vs loose stools Long discussion today regarding issues and options PLAN: Suggested: 1. PBC -continue malathi dose (1250 mg/d ) - Continue fenofibrate at current dose -continue current dose of ocaliva -repeat VCTE (vs ARFII) at [facility]; if no change in Ekpa, would hold off on making any dose changes, but if suggestion of worsening,would have a low threshold to incr dose -serial labs -BMD locally per protocol Follow-up on the phone RTC ~1 yr Yas Wall MD documented in this encounter [facility] 01-04-2023 Miscellaneous Notes Received the following [email or web address] message: Dr. Paradise Mendez wanted to see lab results in 4 months Constanza Corona RN January 04, 2023 3:18 PM documented in this encounter [facility] 10-11-2022 Note HNO ID: [id number] Author: Yas Wall MD Service: ? Author Type: Physician Type: Progress Notes Filed: 10/15/2022 4:52 PM Note Text: VIRTUAL VISIT PROGRESS NOTE This is a virtual visit using [employer] video visit. It required patient-provider interaction for the medical decision making as documented below. Nithya Vasques is a 57 year old female seen for followup of PBC, diagnosed ~12/2005, after initial evaluation for persistent pruritus but nl liver enzymes -s/p liver biopsy done at [facility] 07/06/2013 w early stage disease Restarted [...] 09/2019 -s/p T+A -s/p appy age 18 -H7W2-8-3-2, s/p CS x 1 -h/o hypothyroidism -h/o osteopenia -h/o pre-diabetes Since last seen -labs done 09/[address] [facility] Ast 30 Alt 53 Alkphos 153 Alb 3.6 -weight still uptrending - now ~176 lbs/ 80kg -continuing on malathi (12.9630645750 mg/kg/d, given wgt =176), fenofibrate, ocaliva (2.5) [...] prob early stage fibrosis BMD done at [facility] 12/2019 -> osteropenia Mildly elevated alk [...] labs RTC ~6 months Yas Wall MD [facility] 10-11-2022 History of Present illness Narrative VIRTUAL VISIT PROGRESS NOTE This is a virtual visit using [employer] video visit. It required patient-provider interaction for the medical decision making as documented below. Nithya Vasques is a 57 year old female seen for followup of PBC, diagnosed ~12/2005, after initial evaluation for persistent pruritus but nl liver enzymes -s/p liver biopsy done at [facility] 07/06/2013 w early stage disease Restarted [...] 09/2019 -s/p T+A -s/p appy age 18 -R5I2-5-0-2, s/p CS x 1 -h/o hypothyroidism -h/o osteopenia -h/o pre-diabetes Since last seen -labs done 09/[address] [facility] Ast 30 Alt 53 Alkphos 153 Alb 3.6 -weight still uptrending - now ~176 lbs/ 80kg -continuing on malathi (12.0947365067 mg/kg/d, given wgt =176), fenofibrate, ocaliva (2.5) [...] prob early stage fibrosis BMD done at [facility] 12/2019 -> osteropenia Mildly elevated alk [...] Wall MD documented in this encounter [facility] 05-13-2022 Evaluation + Plan note [facility]/13[facility]22Comprehensive Metabolic Panel 05/13/22 [facility] 03-03-2022 History of Present illness Narrative VIRTUAL VISIT PROGRESS NOTE This is a virtual visit using [employer] video visit. It required patient-provider interaction for the medical decision making as documented below. Nithya Vasques is a 56 year old female seen for followup of PBC, diagnosed ~12/2005, after initial evaluation for persistent pruritus but nl liver enzymes -s/p liver biopsy done at [facility] 07/06/2013 w early stage disease Restarted [...] 09/2019 -s/p T+A -s/p appy age 18 -U9B5-0-8-9, s/p CS x 1 -h/o hypothyroidism -h/o osteopenia Since last seen -recent labs done done at [facility] 02/18/202209/2021 AST 46 35 ALT 85 51 [...] early stage fibrosis Last BMD done at [facility] 12/2019 -> osteropenia Mildly elevated liver [...] Wall MD documented in this encounter [facility] 03-02-2022 Miscellaneous Notes Called Nithya Vasques to remind them of an appointment with Dr. Wall on 03/03/22. Spoke with patient. Appointment confirmed. documented in this encounter [facility] Evaluation + Plan note Future Appointments Appointment Date:01/18/2024 10:45:00 AM Scheduled Provider:Leandro BILL MD Location:[facility] Appointment Type:[facility] Follow Up Future Scheduled TestsVitamin D 25 Hydroxy 01/12/23CBC w/ Auto Diff 01/12/23Hepatic Function Panel 01/12/23BD Bone Density DEXA Peripheral Study 01/12/23 [facility] Evaluation + Plan note Future Appointments Appointment Date:01/18/2024 10:45:00 AM Scheduled Provider:Leandro BILL MD Location:[facility] Appointment Type:BAD Follow Up Future Scheduled TestsVitamin D 25 Hydroxy 01/12/23CBC w/ Auto Diff 01/12/23Hepatic Function Panel 01/12/23BD Bone Density DEXA Peripheral Study 03/04/23 [facility] Evaluation + Plan note Future Appointments Appointment Date:11/14/2023 10:00:00 AM Scheduled Provider:Vitaly Stauffer MD Location:[facility] Appointment Type:[facility] Follow Up Appointment Date:01/18/2024 10:45:00 AM Scheduled Provider:Leandro BILL MD Location:[facility] Appointment Type:[facility] Follow Up Future Scheduled TestsVitamin D 25 Hydroxy 01/12/23CBC w/ Auto Diff 01/12/23Hepatic Function Panel 01/12/23BD Bone Density DEXA Peripheral Study 03/04/23 [facility] Evaluation note Diagnosis Primary biliary cholangitis (HCC) [facility] Diagnosis Primary biliary cholangitis (HCC)- Primary documented in this encounter [facility] note* Diagnosis Primary biliary cholangitis (HCC)- Primary documented in this encounter [facility] note* Diagnosis Primary biliary cholangitis (HCC)- Primary documented in this encounter [facility] note* Diagnosis BRCA positive- Primary Genetic susceptibility to malignant neoplasm of breast documented in this encounter [facility] Work Phone: Evaluation note* Diagnosis BRCA positive- Primary 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) documented in this encounter [facility] Work Phone: Evaluation note* Diagnosis BRCA positive 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) documented in this encounter [facility] Work Phone: Hospital course Narrative No data available for this section [facility] Discharge instructions No data available for this section [facility] Progress note No data available for this section [facility] Reason for referral (narrative)* Diagnostic Procedure Only (Routine) - Pending Review Specialty Diagnoses / Procedures Referred By Rosaura t Referred To Contact US IMAGING Diagnoses Primary biliary cholangitis (HCC) Procedures US ELASTOGRAPHY LIVER ULTRASOUND ELASTOGRAPHY PARENCHYMA O'Mendez, Yas S, MD [address] [place] [address] Us Imaging Referral ID Status Reason Start Date Expiration Date Visits Requested Visits Authorized [id number] Pending Review Auto-Generat ed Referral 2023 05/06/2024 1 1 * Diagnostic Procedure Only (Routine) - Pending Review Specialty Diagnoses / Procedures [facility] To Contact [facility] IMAGING Diagnoses Primary biliary cholangitis (HCC) Procedures US ABD RIGHT UPPER QUADRANT US ABDOMINAL REAL TIME W/IMAGE LIMITED Yas Wall MD [address] [facility] [place] [address] Us Imaging Referral ID Status Reason Start Date Expiration Date Visits Requested Visits Authorized [id number] Pending Review Auto-Generat ed Referral 2023 05/06/2024 1 1 [facility] Summary Purpose Family History No Family History [...] Referral Specialty Diagnoses / Procedures Referred By [facility] t Referred To Contact Gastroenterology Diagnoses 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) Procedures Endoscopic Ultrasound (Upper) [place] [address] [facility], [facility]–1983 Department [place] [address] Referral ID Status Reason Start Date Expiration Date V isits Requested Visits Authorized [id number] Authorized 10/05/2023 10/04/2024 1 1 Additional Source Comments Source Comments (unrecognize d section and content) In the event this informatio n is protected by the Federal Confidentiality of Alcohol and Drug Abuse Patient Records regulations: The Federal rules restrict any use of the information to criminally investigate or prosecute any alcohol or drug abuse patient.[facility] the event this information is protected by the Federal Confidentiality of Alcohol and Drug Abuse Patient Records regulations: The Federal rules restrict any use of the information to criminally investigate or prosecute any alcohol or drug abuse patient.[facility] the event this information is protected by the Federal Confidentiality of Alcohol and Drug Abuse Patient Records regulations: The Federal rules restrict any use of the information to criminally investigate or prosecute any alcohol or drug abuse patient.[facility] the event this information is protected by the Federal Confidentiality of Alcohol and Drug Abuse Patient Records regulations: The Federal rules restrict any use of the information to criminally investigate or prosecute any alcohol or drug abuse patient.[facility] the event this information is protected by the Federal Confidentiality of Alcohol and Drug Abuse Patient Records regulations: The Federal rules restrict any use of the information to criminally investigate or prosecute any alcohol or drug abuse patient.[facility] the event this information is protected by the Federal Confidentiality of Alcohol and Drug Abuse Patient Records regulations: The Federal rules restrict any use of the information to criminally investigate or prosecute any alcohol or drug abuse patient.[facility] the event this information is protected by the Federal Confidentiality of Alcohol and Drug Abuse Patient Records regulations: The Federal rules restrict any use of the information to criminally investigate or prosecute any alcohol or drug abuse patient.[facility] the event this information is protected by the Federal Confidentiality of Alcohol and Drug Abuse Patient Records regulations: The Federal rules restrict any use of the information to criminally investigate or prosecute any alcohol or drug abuse patient.[facility] Reason for Visit (unrecogniz ed section and content) Reason Comments Liver Disease Specialty Diagnoses / Procedures Referred By Rosaura gonzalez Referred To Contact [facility] Diagnoses Primary biliary cholangitis (HCC) [K74.3] Procedures REFERRAL TO [facility] FINANCIAL COUNSELOR Video visit Yas Wall MD [address] [place] [address] [place] [phone] Referral ID Status Reason Start Date Expiration Date Visits Requested Visits Authorized [id number] Closed Financial Clearance Required - OON Payor OON Notification Letter Patient cleared - OON Required Payment Collected 03/23/2022 10/11/2022 1 1 Reason Comments Appointment Specialty Diagnoses / Procedures Referred By Contact Referred To Contact Gastroenterology / GASTROENTEROLOGY Diagnoses Primary bilary cholangitis Procedures REFERRAL TO [facility] FINANCIAL COUNSELOR EST VIRTUAL VISIT PATIENT Yas Wall MD [address] [place] [address] Yas Wall MD [address] [place] [address] Referral ID Status Reason Start Date Expiration Date Visits Requested Visits Authorized [id number] Closed Financial Clearance Required - Self Pay Financial Clearance Required - OON Payor OON Notification Letter Patient Cleared Patient chose to pay or Auth obtained after CCN denied 10/13/2021 01/11/2022 1 1 Reason Comments Orders Reason Comments Results Specialty Diagnoses / Procedures Referred By Rosaura gonzalez Referred To Contact [facility] Diagnoses Primary biliary cholangitis (HCC) Procedures virtual visit Yas Wall MD [address] [place] [address] [address] Referral ID Status Reason Start Date Expiration Date V isits Requested Visits Authorized [id number] Closed OON/Self Pay Override 01/18/2023 04/19/2023 1 1 Reason Comments Results Specialty Diagnoses / Procedures Referred By Contac t Referred To Contact Gastroenterology Diagnoses 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) Procedures Endoscopic Ultrasound (Upper) [place] [address] [address] Department [place] [address] Referral ID Status Reason Start Date Expiration Date V isits Requested Visits Authorized [id number] Authorized 10/05/2023 10/04/2024 1 1 Care Teams (unrecognized sec tion and content) Medical Physiologist Relationship Specialty Start Date End Date Alok Choi Jr. [address] [place] [address] PCP - General 04/21/06 Medical Physiologist Relationship Specialty Start Date End Date Alok Choi Jr. [address] [place] [address] PCP - General 04/21/06 Medical Physiologist Relationship Specialty Start Date End Date Alok Choi Jr. [address] [place] [address] PCP - General 04/21/06 Medical Physiologist Relationship Specialty Start Date End Date Alok Choi Jr. [address] [place] [address] PCP - General 04/21/06 Medical Physiologist Relationship Specialty Start Date End Date Alok Choi Jr. [address] [place] [address] PCP - General 04/21/06 Medical Physiologist Relationship Specialty Start Date End Date Alok Choi Jr. [address] [place] [address] PCP - General 04/21/06 Medical Physiologist Relationship Specialty Start Date End Date Alok Choi Jr. [facility] [place] [address] PCP - General 04/21/06 Medical Physiologist Relationship Specialty Start Date End Date Shaikh Guo MD [address] [place] [address] PCP - General Internal Medicine 09/08/23 Medical Physiologist Relationship Specialty Start Date End Date Shaikh Guo MD [address] [place] [place] [address] PCP - General Internal Medicine 09/08/23 INFORMATION SOURCE (unrecogn ized section and content) DATE CREATED AUTHOR 03/29/2022 [facility] dical Specialist DATE CREATED AUTHOR AUTHOR'S ORGANIZ ATION 01/08/2023 [facility] DATE CREATED AUTHOR AUTHOR'S ORGANIZ ATION 05/07/2023 [facility] DATE CREATED AUTHOR AUTHOR'S ORGANIZ ATION 07/28/2023 [facility] DATE CREATED AUTHOR AUTHOR'S ORGANIZ ATION 09/08/2023 [facility] DATE CREATED AUTHOR AUTHOR'S ORGANIZ ATION 09/25/2023 [facility] FOR RECORDS PERTAINING TO PATIENTS WHO [...] BE BASED ON THE PRIMARY CLINICAL RECORDS. [email or web address] provides no warranty or guarantee of the accuracy or completeness of information in this document.
[2023-10-26 10:22] LABS: Alanine Aminotransferase 54 U/L (14-59); Albumin Globulin Ratio 0.8; Albumin Level 3.4 g/dL (3.4-5.0); Alkaline Phosphatase 180 U/L (46-116); Anion Gap 12.8; Aspartate Amino Transferase 27 U/L (15-37); BUN Creatinine Ratio 23.5; Bilirubin Total 0.3 mg/dL (0.2-1.0); Calcium 9.4 mg/dL (8.5-10.1); Carbon Dioxide 29.4 mmol/L (21.0-32.0); Chloride 102 mmol/L (98-107); Estimated GFR (African America >60 (>=60); Estimated GFR (Non-African Ame >60 (>=60); Globulin 4.5 g/dL; Glucose 99 mg/dL (74-106); Potassium 4.2 mmol/L (3.5-5.1); Sodium 140 mmol/L (136-145); Total Protein 7.9 g/dL (6.4-8.2)
== END 2023-10-26 09:30 | disposition home or self-care (01) ==
PROVIDERS: PCP Internal Medicine; Visit Provider Internal Medicine
DX: K74.3 Primary biliary cirrhosis (principal)
CPT/HCPCS: 36415; 80053

== ENCOUNTER 2024-03-06 07:42 | Outpatient (OUT) | payer OTHER, SELFPAY ==
--- OUTSIDE RECORDS SUMMARY | 2024-03-06 08:03 | XMS_ITS | CCD ---
[facility] Care Team Providers Care Athletic Equipment Custodian Name Role Phone Alok Choi Jr. Primary Care Provider BRANT, Primary Care Physician Alok Choi Jr. Primary [...] Admitting Unavailable FAWWAD, GRAVES H Attending Unavailable Mandeep'YAS MARTIN Referring Unavailable ALOK CHOI JR Primary Care Unavail able O'MARTIN, YAS S Attending Unavailable O'MARTIN, YAS S Referring Unavailable VALDAYANA ALOK COBB Primary Care Unavail able O'MARTIN, YAS S Attending Unavailable Brant URIAS, [facility] Primary Care Provider Brant URIAS, [facility] Provider Minoo Hernandez MD Unavailable Brant URIAS, [facility] Provider Brant URIAS, [facility] Provider KELY CRAIN Attending Unavailable NICOLE GUZMAN Referring Unavailable [facility] Care Unavailable DANIKAICKKELY Referring Unavailable [facility] Care Unavailable KELY CRAIN Attending Unavailable [facility] Unavailable KELY CRAIN Referring Unavailable [facility] Care Unavailable DANIKAICKKELY Referring Unavailable [facility] Care Unavailable DANIKAICKKELY Referring Unavailable [facility] Care Unavailable DANIKAICKKELY Referring Unavailable [facility] Care Unavailable [facility] Care Unavailable Vitaly Stauffer Talal Attending UnavailLeandro Mims Attending Unavailable ASHAMChariser Referring Unavailable [facility] Care Unavailable Charis BILLer Admitting Unavailable [facility] Care Unavailable O'MARTIN, YAS S Admitting Unavailable O'MARTIN, YAS S Attending Unavailable O'MARTIN, YAS S Referring Unavailable Vitaly Stauffer Talal Attending Unavaila Leandro Stevens Attending Unavailable [facility] Primary Care Unavailable [facility] Primary Care Unavailable Vitaly Stauffer Talbonnie Attending UnavailHERMES Clark Attending Unavailable HERMES JOHNSON Attending Unavailable YOGESH GONZALEZ Attending Unavailable [facility] Primary Care Unavailable MINOO HERNANDEZ Attending Unavailable [facility] Primary Care Unavailable MINOO HERNANDEZ Admitting Unavailable MINOO HERNANDEZ Attending Unavailable [facility] Primary Care Unavailable KELY CRAIN Referring Unavailable [facility] Primary Care Unavailable KELY CRAIN Referring Unavailable FAWWAD, [facility] Primary Care Unavailable MINOO HERNANDEZ Referring Unavailable [facility], [facility] Primary Care Unavailable LYNDON QUINN Attending Unavailable [facility], [facility] Primary Care Unavailable HERMES MONTELONGO Attending Unavailable [facility], [facility] Primary Care Unavailable RADHA, VANCE Attending Unavailable HERMES JOHNSON Referring Unavailable FAWNED, [facility] Primary Care Unavailable CHAK, VANCE Attending Unavailable CHAK, VANCE Referring Unavailable [facility] Primary Care Unavailable MINOO HERNANDEZ Attending [facility]available [facility], [facility] Primary Care Unavailable [facility], [facility] Primary Care Unavailable [facility] Primary Care Unavailable ANGELY KENT Attending Unavailable Allergies Allergy Classification Reported Allergen(s) Allergy Type Date of Onset Reaction(s) Facility rifAMPin (1 source) rifAMPin; Translations: [RIFAMPIN] Drug Allergy 6 [facility] Sulfonamides (antibiotic) (1 source) Sulfonamides (Antibiotic); Translations: [SULFA (SULFONAMIDE ANTIBIOTICS)] Drug Allergy 3 [facility] (18 sources) rifAMPin; Translations: [RIFAMPIN] Drug Allergy 6 Rash, Itching [facility] (20 sources) Sulfonamides (Antibiotic); Translations: [SULFA (SULFONAMIDE ANTIBIOTICS)] Drug Allergy 9 Other: See Comments, Hives [facility] (8 sources) Sulfonamides (Antibiotic); Translations: [sulfa drugs] Drug allergy allergy [facility] (1 source) Sulfonamides (Antibiotic) Drug allergy (disorder) 3 [facility] (1 source) ALLERGIES NOT ON FILE; Translations: [ALLERGIES NOT ON FILE] Propensity to adverse reactions (disorder) [facility] 3 Repository Medications Current Medications Medication Drug Class(es) Dates Sig (Normalized) Sig (Original) acetaminophen 325 mg oral tablet (3 sources) Start: 01-19-2024 take 3 tablets by mouth every six hours for pain acetaminophen (Tylenol) 325 mg tablet Indications: Postoperative pain Take 3 tablets (975 mg) by mouth every 6 hours if needed for mild pain (1 - 3) for up to 50 doses. 50 tablet 01/19/2024 Active calcium carbonate 1250 mg / cholecalciferol 200 unt oral tablet (20 sources) Vitamin D take 1 tablet by mouth once daily calcium carbonate-vitamin D3 500 mg-5 mcg (200 unit) tablet Take 1 tablet by mouth once daily. Active calcium chloride 0.0014 meq/ml / potassium chloride 0.004 meq/ml / sodium chloride 0.103 meq/ml / sodium lactate 0.028 meq/ml injectable solution (2 sources) Start: 01-19-2024 take 100 mL intravenously every hour 100 mL/hr, intravenous, Continuous, Starting on Mallory 01/19/24 at 1015, Recovery (only) calcium citrate 500 mg oral tablet (7 sources) Start: 11-17-2020 take 500 mg by mouth twice daily calcium citrate 500 mg, Oral, BID, Refills(s) 0, Prophylaxis Start Date: 11/17/20 Status: Ordered calcium citrate 1500 mg / cholecalciferol 200 unt oral tablet (20 sources) Vitamin D take 1 tablet by mouth once daily calcium citrate-vitamin D3 (Citracal+D) 315 mg-5 mcg (200 unit) tablet Take 1 tablet by mouth once daily. Active cholecalciferol 1.25 mg oral capsule (7 sources) Vitamin D take 1 capsule by mouth every week cholecalciferol (Vitamin D-3) 50,000 unit capsule Take 1 capsule (50,000 Units) by mouth 1 (one) time per week. Active 2 ml droperidol 2.5 mg/ml injection (1 source) Dopamine-2 Receptor Antagonist Start: 01-19-2024 0.625 mg, intravenous, Once as needed, nausea/vomiting, second line, Starting on Mallory 01/19/24 at 0958, For 1 dose, Recovery (only), Monitor QTc while on therapy (2 lead monitoring) fenofibrate 145 mg oral tablet (20 sources) Peroxisome Proliferator Receptor alpha Agonist Start: 05-13-2023 End: 01-12-2025 take 0.5 tablet by mouth every other day fenofibrate 145 mg Tab 1/2 tab(s), Oral, Every other day, X 90 day(s), # 90 tab(s), Refills(s) 3, Pharmacy: [facility] [id number], 160, cm, 01/18/24 10:59:00 EDT, Height/Length Dosing, 86, kg, 01/18/24 10:59:00 EDT, Weight Dosing Start Date: 01/18/24 Stop Date: 01/12/25 Status: Ordered Start: 10-14-2022 End: 04-12-2023 take 0.5 tablet by mouth every other day fenofibrate 145 mg Tab 1/2 tab(s), Oral, Every other day, X 90 day(s), # 90 tab(s), Refills(s) 1, Pharmacy: [facility] [id number], 160, cm, 05/13/22 13:20:00 EDT, Height/Length Dosing, 76.6, kg, 05/13/22 13:20:00 EDT, Weight Dosing Start Date: 10/14/22 Stop Date: 04/12/23 Status: Ordered Start: 09-15-2021 take 0.5 tablet by [facility] once daily fenofibrate 145 mg Tab 1/2 tab(s), Oral, Daily, # 30 tab(s), Refills(s) 4, Pharmacy: [place] [id number], 160, cm, 09/15/21 14:38:00 EST, Height/Length Dosing, 75.6, kg, 09/15/21 14:38:00 EST, Weight Dosing Start Date: 09/15/21 Status: Ordered Start: 08-18-2021 take 1 tablet by sara once daily fenofibrate nanocrystallized (TRICOR) 145 mg tablet TAKE 1 TABLET BY MOUTH EVERY DAY 30 tablet 11 08/18/2021 Active Comment on above: TAKE 1 TABLET BY SARA EVERY DAY 1 ml HYDROmorphone hydrochloride 1 mg/ml cartridge (2 sources) Opioid Agonist Start: 01-19-2024 0.5 mg, intravenous, Every 5 min PRN, pain severe (7-10), first line, Starting on Mallory 01/19/24 at 0958, Recovery (only), Max total of 4 mg regardless of dose. Start: 01-19-2024 0.2 mg, intrav enous, Every 5 min PRN, pain moderate (4-6), first line, Starting on Mallory 01/19/24 at 0958, Recovery (only), Max total of 4 mg regardless of dose. ibuprofen 600 mg oral tablet (3 sources) Nonsteroidal Anti-inflammatory Drug Start: 01-19-2024 take 1 tablet by mouth every six hours for pain ibuprofen 600 mg tablet Indications: Postoperative pain Take 1 tablet (600 mg) by mouth every 6 hours if needed for moderate pain (4 - 6) for up to 50 doses. 50 tablet 01/19/2024 Active LORazepam 1 mg oral tablet (11 sources) Benzodiazepine Start: 12-06-2023 LORazepam (Ativan) 1 mg tablet Indications: Situational anxiety Take one tablet by mouth one hour prior to MRI. You may take one more tablet by mouth up to 15 minutes prior to MRI if needed. 2 tablet 12/06/2023 Active Meperidine (1 source) Opioid Agonist Start: 01-19-2024 12.5 mg, intravenous, Every 10 min PRN, shivering, Starting on Mallory 01/19/24 at 0958, Recovery (only) multivitamin tablet (20 sources) take 1 tablet by mouth once daily multivitamin tablet Take 1 tablet by mouth once daily. Active take 1 tablet by mouth once coy y multivitamin tablet Take 1 tablet by mouth once daily. 0 Active Multivitamins and Minerals (7 sources) Start: 11-17-2020 take 1 tablet by mouth once daily Multivitamins and Minerals 1 tab, Oral, Daily, Refill(s) 0, Prophylaxis Start Date: 11/17/20 Status: Ordered obeticholic acid 5 mg oral tablet (20 sources) Farnesoid X Receptor Agonist Start: 12-21-2022 take 2.5 mg by mouth once daily Ocaliva 5 mg oral tablet See Instructions, 2.5 mg= 1/2 tablet Oral Daily, # 30 tab(s), Refills(s) 0, Pharmacy: [facility], 160, cm, 01/12/23 10:47:00 EDT, Height/Length Dosing, 84.6, kg, 01/12/23 10:47:00 EDT, Weight Dosing Start Date: 01/12/23 Status: Ordered Start: 10-21-2021 End: 10-16-2022 take 1 tablet by mouth once daily Ocaliva 5 mg oral tablet 5 mg = 1 tab(s), Oral, Daily, X 90 day(s), # 90 tab(s), Refills(s) 3, Pharmacy: [facility], 160, cm, 09/15/21 14:38:00 EST, Height/Length Dosing, 75.6, kg, 09/15/21 14:38:00 EST, Weight Dosing Start Date: 10/21/21 Stop Date: 10/16/22 Status: Ordered Start: 09-15-2021 take 0.5 tablet by m outh once daily Ocaliva 5 mg oral tablet /, Oral, Daily, # 15 tab(s), Refills(s) 11, Pharmacy: [facility] [place] [id number], 160, cm, 09/15/21 14:38:00 EST, Height/Length Dosing, 75.6, kg, 09/15/21 14:38:00 EST, Weight Dosing Start Date: 09/15/21 Status: Ordered ondansetron 4 mg oral tablet (4 sources) Serotonin-3 Receptor Antagonist Start: 01-19-2024 take 1 tablet by mouth every six hours for nausea ondansetron (Zofran) 4 mg tablet Indications: Postoperative pain Take 1 tablet (4 mg) by mouth every 6 hours if needed for nausea for up to 20 doses. 20 tablet 01/19/2024 Active Start: 01-19-2024 4 mg, intraven ous, Once as needed, nausea/vomiting, first line, Starting on Mallory 01/19/24 at 0958, For 1 dose, Recovery (only), When administering via IV Push, administer over 3-5 minutes. oxyCODONE hydrochloride 5 mg oral tablet (1 source) Opioid Agonist Start: 01-19-2024 take 1 tablet by mouth every four hours as needed 5 mg, oral, Every 4 hours PRN, pain mild (1-3), first line, Starting on Mallory 01/19/24 at 0958, Recovery (only), When able to take oral medications., If ordered PRN for pain, nurse is permitted to administer this medication for higher pain scores based on patient preference? Yes oxygen (O2) therapy (2 sources) Start: 01-19-2024 inhalation, Continuous - Inhalation, First dose on Mallory 01/19/24 at 1015, Recovery (only), Device: Nasal Cannula, Rate in liters per minute: 2 LPM, Keep O2 Sat Above: 92% Start: 01-19-2024 inhalation, Co ntinuous PRN - O2/gases, other, Starting on Mallory 01/19/24 at 0958, Recovery (only), Device: Nasal Cannula, Rate in liters per minute: Other, Custom Value: 1-6 LPM, Keep O2 Sat Above: 92% polyethylene glycol 3350 34427 mg powder for oral solution (3 sources) Osmotic Laxative Start: 01-19-2024 polyethylene glycol (Glycolax, Miralax) 17 gram packet Indications: Postoperative pain Take 17 g by mouth once daily as needed (for constipation) for up to 10 doses. 10 packet 01/19/2024 Active traMADol hydrochloride 50 mg oral tablet (3 sources) Opioid Agonist Start: 01-19-2024 take 1 tablet by mouth every six hours for pain traMADol (Ultram) 50 mg tablet Indications: Postoperative pain Take 1 tablet (50 mg) by mouth every 6 hours if needed for severe pain (7 - 10) for up to 12 doses. 12 tablet 01/19/2024 Active ursodiol 500 mg oral tablet (20 sources) Bile Acid Start: 09-15-2021 End: 01-12-2025 take 1 tablet by mouth twice daily at mealtime ursodiol 500 mg Tab 500 mg = 1 tab(s), Oral, BID, with food, X 30 day(s), # 60 tab(s), Refills(s) 11, Pharmacy: [facility] [id number], 160, cm, 01/18/24 10:59:00 EDT, Height/Length Dosing, 86, kg, 01/18/24 10:59:00 EDT, Weight Dosing Start Date: 01/18/24 Stop Date: 01/12/25 Status: Ordered Start: 12-29-2020 take 1 tablet by sara th three times daily Ursodiol 500 mg tablet TK 1 T PO TID WF 180 tablet 3 12/29/2020 Active take 0.5 tablet by m outh once daily in the morning ursodiol (Actigall) 500 mg tablet Take 0.5 tablets (250 mg) by mouth once daily in the morning. Active Comment on above: TK 1 T PO TID WF Vitamin D 50,000 intl units (1.25 mg) oral capsule (13 sources) Start: 05-12-2023 End: 05-06-2024 Vitamin D 50,000 intl units (1.25 mg) oral capsule 50,000 International_Unit, Oral, qWeek, X 90 day(s), # 12 cap(s), Refills(s) 3, Pharmacy: [facility] [id number], 160, cm, 05/12/23 13:51:00 EDT, Height/Length Dosing, 83.4, kg, 05/12/23 13:51:00 EDT, Weight Dosing Start Date: 05/12/23 Stop Date: 05/06/24 Status: Ordered Start: 04-18-2023 End: 05-18-2023 Vitamin D 50,000 intl units (1.25 mg) oral capsule 50,000 International_Unit, Oral, qWeek, X 30 day(s), # 4 cap(s), Refills(s) 0, Pharmacy: [facility] [id number], 160, cm, 01/12/23 10:47:00 EDT, Height/Length Dosing, 84.6, kg, 01/12/23 10:47:00 EDT, Weight Dosing Start Date: 04/18/23 Stop Date: 05/18/23 Status: Ordered Start: 09-09-2022 take 1 capsule by mouth once V itamin D 50,000 intl units (1.25 mg) oral capsule See Instructions, 1 cap(s) Oral As Directed tuesday-Tuesday as previously prescribed per Dr. Bill., # 24 cap(s), Refills(s) 1, Pharmacy: [facility] [id number], 160, cm, 05/13/22 13:20:00 EDT, Height/Length Dosing, 76.6, kg, 05/13/22 13:20:00 EDT, Weight Dosing Start Date: 09/09/22 Status: Ordered Start: 09-09-2022 take 1 capsule by mouth once V itamin D 50,000 intl units (1.25 mg) oral capsule See Instructions, 1 cap(s) Oral As Directed tuesday-Tuesday as previously prescribed per Dr. Bill., # 24 cap(s), Refills(s) 1, Pharmacy: [facility] [id number], 160, cm, 05/13/22 13:20:00 EDT, Height/Length Dosing, 76.6, kg, 05/13/22 13:20:00 EDT,... Start Date: 09/09/22 Status: Ordered Start: 09-15-2021 Vitamin D 50,0 00 intl units (1.25 mg) oral capsule 50,000 International_Unit, Oral, As Directed, # 24 cap(s), Refills(s) 0, Pharmacy: [id number], 160, cm, 09/15/21 14:38:00 EST, Height/Length Dosing, 75.6, kg, 09/15/21 14:38:00 EST, Weight Dosing Start Date: 09/15/21 Status: Ordered Completed/Discontinued Medications Medication Drug Class(es) Dates Sig (Normalized) Sig (Original) alendronic acid 70 mg oral tablet (20 sources) Bisphosphonate Start: 09-07-2021 take 1 tablet [...] lie down for the next 30 min. Active Comment on above: TAKE 1 TABLET BY SARA TH ONCE EVERY WEEK. TAKE WITH FULL GLASS OF WATER IN THE MORNING ON AN EMPTY STOMACH. DO NOT LIE DOWN FOR 30 MINUTES clobetasol propionate 0.0005 mg/mg topical ointment (8 sources) Corticosteroid Start: 10-26-2006 CLOBETASOL 0.05 % OINTMENT Indications: Contact dermatitis [...] capsule (8 sources) Provitamin D2 Compound Start: 11-09-2019 ergocalciferol 50,000 unit capsule (VITAMIN D2, DRISDOL) TK 1 C PO TWICE A WEEK ON TUESDAY AND TUESDAY 0 11/09/2019 Active Comment on above: TK 1 C PO TWICE A WE EK ON TUESDAY AND TUESDAY gadoterate meglumine (Dotarem) 0.5 mmol/mL contrast injection 17 mL (4 sources) Start: 12-21-2023 End: 12-21-2023 gadoterate meglumine (Dotarem) 0.5 mmol/mL contrast injection 17 mL Start: 11-24-2023 End: 11-24-2023 gadoterate meglumine (Dotare m) 0.5 mmol/mL contrast injection 17 mL levothyroxine sodium 0.15 mg oral tablet (20 sources) l-Thyroxine Start: 12-22-2020 take 1 tablet by mouth once daily, [...] Status: Ordered take 1 capsule by mo [facility] once daily levothyroxine (Tirosint) 112 mcg capsule Take 1 capsule (112 mcg) by mouth once daily. Active Comment on above: Take 1 tablet by sara once daily. But skip Saturdays and Sundays (so total 5 tablets per week) MULTIVITAMIN ORAL (8 sources) take 1 tablet by mouth once daily MULTIVITAMIN ORAL Take 1 tablet by mouth once daily. 0 Active Comment on above: Take 1 tablet by sara th once daily. 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 states; Translations: [MENOPAUSAL FE CLIMACTERIC STATES] Onset: 09-22-2022 Chronic Nonmalignant breast conditions (5 sources) Lump in lower outer quadrant of right breast; Translations: [Unspecified lump in the right breast, lower outer quadrant] Onset: 12-06-2023 12-06-2023 Episodic Nutritional deficiencies (15 sources) Vitamin D deficiency; Translations: [Vitamin D deficiency, unspecified] Onset: 01-12-2023 Chronic Other and unspecified benign neoplasm (12 sources) History of polyp of colon; Translations: [Personal history of colonic polyps] Onset: 05-13-2022 Episodic Other bone disease and musculoskeletal deformities (3 sources) Disorder of bone; Translations: [Other specified disorders of bone density and structure, unspecified site] Onset: 05-12-2023 Episodic Other bone disease and musculoskeletal deformities (3 sources) Osteopenia 05-12-2023 Episodic Other liver diseases (20 sources) Primary biliary cholangitis; Translations: [Primary biliary cirrhosis] Onset: 01-21-2021 01-21-2021 Chronic Other liver diseases (8 sources) Primary biliary cirrhosis; Translations: [PRIMARY BILIARY CIRRHOSIS] Onset: 01-07-2023 Chronic Other nervous system disorders (1 source) Postoperative pain ; Translations: [Other acute postprocedural pain] 01-19-2024 Episodic Other nervous system disorders (2 sources) Other acute postprocedural pain; Translations: [Other acute postprocedural pain] Onset: 01-19-2024 Episodic Other nutritional; endocrine; and metabolic disorders (20 sources) Obesity; Translations: [Obesity, unspecified] Onset: 10-06-2023 10-06-2023 Chronic Other screening for suspected conditions (not mental disorders or infectious disease) (4 sources) MRI scan abnormal; Translations: [Abnormal findings on diagnostic imaging of other specified body structures] Onset: 12-06-2023 12-06-2023 Chronic Other screening for suspected conditions (not mental disorders or infectious disease) (18 sources) Encounter for screening for diabetes mellitus; Translations: [Imaging of abdomen abnormal] Onset: 02-24-2022 Episodic Residual codes; unclassified (3 sources) BRCA2 gene mutation positive; Translations: [Genetic susceptibility to malignant neoplasm of breast] 10-26-2023 Episodic Residual codes; unclassified (4 sources) Genetic susceptibility to malignant neoplasm of breast; Translations: [Genetic susceptibility to malignant neoplasm of breast] Onset: 10-26-2023 Episodic Residual codes; unclassified (4 sources) Genetic susceptibility to other malignant neoplasm; Translations: [Genetic susceptibility to other malignant neoplasm] Onset: 10-26-2023 Episodic Thyroid disorders (16 sources) Hypothyroidism; Translations: [Hypothyroidism, unspecified] Onset: 05-13-2022 [...] (healed) traumatic fracture] Onset: 01-21-2021 01-21-2021 Episodic Residual codes; unclassified (20 sources) 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; Translations: [Genetic susceptibility to malignant neoplasm of breast] Onset: 09-21-2023 09-21-2023 Episodic Residual codes; unclassified (2 sources) Family history of carrier of genetic disease; Translations: [Family history of carrier of genetic disease] Onset: 08-09-2023 Episodic Unclassified (20 sources) Onset: 09-08-2023 09-08-2023 Results Test Name Value Interpretation Reference Range Facility Calcitriolon 02-24-2024 1,25-dihydroxyvitamin D3 [Mass/Vol] 73.7 pg/mL Normal 19.9-79.3 [facility] Comment on above: Result Comment: INTE RPRETIVE INFORMATION: Vitamin D, 1,25-Dihydroxy This test is primarily indicated during patient evaluation for hypercalcemia and renal failure. A normal result does not rule out Vitamin D deficiency. The recommended test for diagnosing Vitamin D deficiency is Vitamin D 25-hydroxy. Performed By: [email or web address] [address] [place] [address] Framing Carpenter: Ronal Sanchez MD, PhD CLIA Number: [id number] Performed By: #### 1 649-3 ####[facility] ([facility]) ([id number])[address] [place] [address] Comprehensive metabolic 2000 panelon 02-24-2024 Albumin BCP dye [Mass/Vol] 4.4 g/dL Normal 3.4-5.0 [facility] Comment on above: Performed By: #### 2 4323-8 ####CONSTANZA Moore ([id number])[facility] ([facility])[address] [place] [address] ALP [Catalytic activity/Vol] 158 U/L High 33-110 [facility] Comment on above: Performed By: #### 2 4323-8 ####CONSTANZA Moore ([id number])[facility] ([facility])[address] [place] [address] ALT With P-5'-P [Catalytic activity/Vol] 45 U/L Normal 7-45 [facility] Comment on above: Result Comment: Suzanne ents treated with Sulfasalazine may generate falsely decreased results for ALT. Performed By: #### 2 4323-8 ####CONSTANZA Moore ([id number])[facility] ([facility])[address] [place] [address] Anion gap [Moles/Vol] 15 mmol/L Normal 10-20 [facility] Comment on above: Performed By: #### 2 4323-8 ####CONSTANZA Moore ([id number])[facility] ([facility])[address] [place] [address] AST With P-5'-P [Catalytic activity/Vol] 29 U/L Normal 9-39 [facility] Comment on above: Performed By: #### 2 4323-8 ####CONSTANZA Moore ([id number])[facility] ([facility])[address] [place] [address] Bilirubin [Mass/Vol] 0.4 mg/dL Normal 0.0-1.2 [facility] Comment on above: Performed By: #### 2 4323-8 ####CONSTANZA Moore ([id number])[facility] ([facility])[address] [place] [address] Calcium [Mass/Vol] 9.2 mg/dL Normal 8.6-10.[address] [facility] Comment on above: Performed By: #### 2 4323-8 ####CONSTANZA Moore ([id number])[facility] ([facility])[address] [place] [address] Chloride [Moles/Vol] 101 mmol/L Normal 98-107 [facility] Comment on above: Performed By: #### 2 4323-8 ####CONSTANZA Moore ([id number])[facility] ([facility])[address] [place] [address] CO2 [Moles/Vol] 26 mmol/L Normal 21-32 [facility] Comment on above: Performed By: #### 2 4323-8 ####CONSTANZA Moore ([id number])[facility] ([facility])[address] [place] [address] Creatinine [Mass/Vol] 0.88 mg/dL Normal 0.50-1.05 [facility] Comment on above: Performed By: #### 2 4323-8 ####CONSTANZA Moore ([id number])[facility] ([facility])[address] [place] [address] Glomerular filtration rate/1.73 sq M.predicted 77 mL/min/1.73m*2 Normal >60 [facility] Comment on above: Result Comment: Calc ulations of estimated GFR are performed using the 2020 CKD-EPI Study Refit equation without the race variable for the IDMS-Traceable creatinine methods. https://jasn.asnjournals.org/content/early//ASN.82934 87558 Performed By: #### 2 4323-8 ####CONSTANZA Moore ([id number])[facility] ([facility])[address] [place] [address] Glucose [Mass/Vol] 101 mg/dL High 74-[address] [facility] Comment on above: Performed By: #### 2 4323-8 ####CONSTANZA Moore ([id number])[facility] ([facility])[address] [place] [address] Potassium [Moles/Vol] 4.6 mmol/L Normal 3.5-5.3 [facility] Comment on above: Performed By: #### 2 4323-8 ####CONSTANZA Moore ([id number])[facility] ([facility])[address] [place] [address] Protein [Mass/Vol] 7.7 g/dL Normal 6.4-8.[address] [facility] Comment on above: Performed By: #### 2 4323-8 ####CONSTANZA Moore ([id number])[facility] ([facility])[address] [place] [address] Sodium [Moles/Vol] 137 mmol/L Normal 136-[address] [facility] Comment on above: Performed By: #### 2 4323-8 ####CONSTANZA Moore ([id number])[facility] ([facility])[address] [place] [address] Urea nitrogen [Mass/Vol] 18 mg/dL Normal 6-23 [facility] Comment on above: Performed By: #### 2 4323-8 ####CONSTANZA Moore ([id number])[facility] ([facility])[address] [place] [address] Parathyrin.intacton 02-24-20 24 Parathyrin.intact [Mass/Vol] 42.2 pg/mL Normal 18.5-88.0 [facility] Comment on above: Performed By: #### 2 731-8 ####CONSTANZA Moore ([id number])[facility] ([facility])[address] [place] [address] Phosphateon 02-24-2024 Phosphate [Mass/Vol] 3.6 mg/dL Normal 2.5-4.9 [facility] Comment on above: Result Comment: The performance characteristics of phosphorus testing in heparinized plasma have been validated by the individual laboratory site where testing is performed. Testing on heparinized plasma is not approved by the FDA; however, such approval is not necessary. Performed By: #### 2 777-1 ####CONSTANZA Moore ([id number])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 PELVIC WASHING - Pelvic Washings No malignant cells identified Laboratory comment SEE COMMENT Slide(s) initially screened by ANTOLIN Martínez at [facility] [address] [facility] [address] By the signature on this report, the individual or group listed as making the Final Interpretation/Diagnos is certifies that they have reviewed this case. Path report.relevant Hx SEE COMMENT Pre-op diagnosis: BRCA gene mutation positive [Z15.01, Z15.09] Path report.gross observation SEE COMMENT A. PELVIC WASHING. Received 35 ml colorless clear fluid without particles in sterile cup . Qns for cell block Laboratory comment SEE COMMENT A1 Slides Only (No Block) A1-1 Pap Stain NGYN ThinPrep Normal [facility] Comment on above: Order Comment: Pre-o p diagnosis:BRCA gene mutation positive [Z15.01, Z15.09] Physician Referralon 024 Physician Referral [id number]#[id number] 0TIFF Normal [facility] Surgical pathology studyon 0 01-19-2024 Surgical pathology study Pathology report.total SEE COMMENT Surgical Pathology Case: [id number] Authorizing Provider: Minoo Hernandez MD Collected: 01/19/2024 0930 Ordering Location: [facility] Received: 01/19/2024 1053 [facility] [place] Pathologist: William Hale MD Specimen: FALLOPIAN TUBE AND OVARY BILATERAL SALPINGO-OOPHORECTOMY, Bilateral Tubes and Ovaries Path report.final diagnosis SEE COMMENT A. FALLOPIAN TUBES AND OVARIES, BILATERAL SALPINGO-OOPHORECTOMY: --OVARIES: CORTICAL INCLUSION CYSTS --FALLOPIAN TUBES: NO EVIDENCE OF NEOPLASIA Laboratory comment By the signature on this report, the individual or group listed as making the Final Interpretation/Diagnos is certifies that they have reviewed this case. Path report.relevant Hx SEE COMMENT Pre-op diagnosis: BRCA gene mutation positive [Z15.01, Z15.09] Path report.gross observation SEE COMMENT A: Received in formalin, labeled with the patient's name and hospital number and Bilateral Tubes and Ovaries , are two unoriented fallopian tubes with attached ovaries. Fallopian tube #1 measures 4.1 cm in length by 0.7 cm in diameter. The serosa is pink-lorenz smooth and glistening. The fimbriated end is unremarkable. The cut surface reveals a pint point lumen. Ovary #1, 1.8 x 1.5 x 0.6 cm, is firm with a white cerebriform outer surface adhered to the fallopian tube. The cut surface is lorenz-white and yellow. No gross lesions are identified Fallopian tube #2 measures 3.5 cm in length by 0.7 cm in diameter. The serosa is pink-lorenz smooth and glistening with adhesions and is disrupted. Attached to tube is a piece of soft tissue measuring 3.0 x 0.5 x 0.2 cm. The fimbriated end is unremarkable. The cut surface reveals a pint point lumen. Ovary #2, 1.0 x 0.5 x 0.5 cm, is firm with a white cerebriform outer surface received separately. The cut surface is lorenz-white and yellow. No gross lesions are identified The fallopian tube and ovaries are submitted entirely in 10 cassettes. NICK Summary of cassettes: Specimen Label Site A 1 Fallopian tube #1 (Fimbriated end) 2-5 Ovary #1 (Fallopian tube and ovary entirely) 6 Fallopian tube #2 (Fimbriated end) 7 Ovary #2 (entirely submitted) 8-10 Fallopian tube #2 (Entire Tube with Soft tissue) Normal [facility] Comment on above: Order Comment: Pre-o p diagnosis:BRCA gene mutation positive [Z15.01, Z15.09] Ambulatory Visit Summaryon 0 01-18-2024 Ambulatory Visit Summary NITHYA DE DIOS :1965 Visit Date:01/18/2024 Ambulatory Visit Instructions Your Diagnosis Primary biliary cholangitis Vitamin D deficiency Osteopenia Your Care Team Attending Physician - Vitaly Stauffer MD Primary Care Physician - BRANT URIAS, This Is Your Medications List fenofibrate (fenofibrate 145 mg Tab) ursodiol (ursodiol 500 mg Tab) Contact prescribing [...] (Ocaliva 5 mg oral tablet) Procedures Performed Mammography (03/30/2023), Mammography (03/25/2021), Colonoscopy (12/29/2020), Appendectomy, section, Tonsillectomy and adenoidectomy. Discharge Vitals Heart Rate (Peripheral) 72 Respiratory Rate 16 Blood Pressure 106/70 Height 160 cm Height 63 in Weight 86 kg Weight 189.2 lb BMI 33.59 What to do next Scheduled Follow-Up Appointments Tuesday 10:15 AM EDT With: Eh URIAS, Vitaly Hernandes Where: [facility] Normal [facility] Ambulatory Visit Summary NITHYA DE DIOS :1965 Visit Date:01/18/2024 Ambulatory Visit Instructions Your Diagnosis Primary biliary cholangitis Vitamin D deficiency Osteopenia Your Care Team Attending Physician - Vitaly Stauffer MD Primary Care Physician - BRANT URIAS, [facility] This Is Your Medications List fenofibrate (fenofibrate 145 mg Tab) ursodiol (ursodiol 500 mg Tab) Contact prescribing [...] (Ocaliva 5 mg oral tablet) Procedures Performed Mammography (03/30/2023), Mammography (03/25/2021), Colonoscopy (12/29/2020), Appendectomy, section, Tonsillectomy and adenoidectomy. Discharge Vitals Heart Rate (Peripheral) 72 Respiratory Rate 16 Blood Pressure 106/70 Height 160 cm Height 63 in Weight 86 kg Weight 189.2 lb BMI 33.59 What to do next You Need to Complete the Following CBC w/ Auto Diff, Blood, Routine collect, 01/18/24, Order for future visit, Lab Collect, Primary biliary cholangitis, Print Label By Order Location Comprehensive Metabolic Panel, Blood, Routine collect, 01/18/24, Order for future visit, Lab Collect, Primary biliary cholangitis, Print Label By Order Location Someone Will Contact You Regarding These Appointments [facility] Ambulatory Referral, Gastroenterology, 01/18/24 11:28:00 EDT, Primary biliary cholangitis Medications What How Much When Why Instructions New fenofibrate (fenofibrate 145 mg Tab) 1/2 tab(s) By Mouth Every other day Primary biliary cholangitis Duration: 90 Days Refills: 3 Pickup at [facility] [id number] New ursodiol (ursodiol 500 mg Tab) 1 Tablets By Mouth 2 times a day Duration: 30 Days Refills: 11 with food Pickup at [facility] [id number] Unchanged alendronate (alendronate 10 mg Tab) 1 Tablets By Mouth Every day osteoporosis Contact prescribing physician if questions or concerns Unchanged calcium citrate 500 Milligram By Mouth 2 times a day Contact prescribing physician if questions or concerns Unchanged ergocalciferol (Vitamin D 50,000 intl units (1.25 mg) oral capsule) 50,000 International unit By Mouth Every week Duration: 90 Days Contact prescribing physician if questions or concerns Unchanged ergocalciferol (Vitamin D 50,000 intl units (1.25 mg) oral capsule) See instructions Primary biliary cholangitis 1 cap(s) Oral As Directed tuesday-Tuesday as previously prescribed per Dr. Bill. Contact prescribing physician if questions or concerns Unchanged levothyroxine 175 Microgram By Mouth As Directed Contact prescribing physician if questions or concerns Unchanged multivitamin with minerals (Multivitamins and Minerals) 1 tab By Mouth Every day Contact prescribing physician if questions or concerns Unchanged obeticholic acid (Ocaliva 5 mg oral tablet) 1/2 By Mouth Every day Contact prescribing physician if questions or concerns Unchanged obeticholic acid (Ocaliva 5 mg oral tablet) See instructions Primary biliary cholangitis 2.5 mg= 1/ 2 tablet Oral Daily Contact prescribing physician if questions or concerns Unchanged obeticholic acid (Ocaliva 5 mg oral tablet) See instructions Primary biliary cholangitis 2.5 mg= 1/ 2 tablet Oral Daily Contact prescribing physician if questions or concerns Pharmacy Information [facility] [phone]: [address] [place], [place] [phone] Allergies sulfa drugs (allergy) Problems Ongoing - Any problem that you are currently receiving treatment for. Abnormal US (ultrasound) of abdomen Hypothyroidism Osteopenia Personal history of colonic polyps Primary biliary cholangitis Vitamin D deficiency Patient Survey You may receive a survey via text or e-mail asking about your office visit. Please share your experience with us by completing your survey. We appreciate your feedback and thank you for choosing us for your care. Normal [facility] Gastroenterology Office/Clin ic Noteon 01-18-2024 Gastroenterology Office/Clinic Note Chief Complaint PBC, osteopenia, vit. D deficiency HPI Staff Patient is a(n) 58 year old female who presents today for a(n) 2 month follow up. Needs the malathi refilled today. Last visit 11/14/23 w/Dr. Stauffer: Assessment/Plan 1. Primary biliary cholangitis (K74.3: Primary biliary cirrhosis) Diagnosed more than 20 years ago, used to follow with Dr. Meza, last visit was in the summer virtually Her alk phos was in the 150 range last time, in October was 180 No more itching for more than 20 years She is currently on Malathi 15 mg/kg/day, fenofibrate every other day and Ocaliva 2.5 mg daily, she is afraid to increase it because she did not tolerate it in the past which she wanted to talk to Dr. Meza about that, but he is not in her network anymore She takes vitamin D daily Had DEXA scan done last year FibroScan last year did not show steatosis or scarring We discussed increasing Ocaliva or fenofibrate, but will discuss first with Dr. Meza given his the high lift operator taking care of her She also tested positive for BRCA2, she is going through screening for pancreatic cancer at and she is involved in a clinical study for that - Family member screening discussed Family members of patients with PBC are at increased risk of developing the disease, particularly among female FDRs, including sisters and daughters.(43) The value of screening family members has not been firmly established; however, screening is usually recommended for female FDRs beginning at age 30. Screening is usually done by measuring the serum ALP level and, if it is elevated, assessing for AMA; this could be repeated at 5-year intervals if AMA-negative initially. 2. Vitamin D deficiency (E55.9: Vitamin D deficiency, unspecified) Continue vitamin D supplementation 3. Osteopenia (M85.80: Other specified disorders of bone density and structure, unspecified site) Continue DEXA scan every 2 years 4. Personal history of colonic polyps (Z86.010: Personal history of colonic polyps) Repeat colonoscopy is scheduled EUS 10/06/23 @ [facility]: Impression: The pancreatic parenchyma was visualized in the entire pancreas and appeared to have a normal salt and pepper appearance. The pancreatic duct appeared normal. Recommended: MR/MRCP in one year History of Present Illness Denies itching Increased fatigue Weight gain the last few months Colonoscopy every other year Having ovaries and fallopian tubes removed tomorrow d/t BRCA2 gene Labs reviewed and discussed from CBC is within normal limits, platelets 305 CMP is within normal limits, with exceptions of Alk phos 132 Review of Systems PHQ Score Initial Depression Screen Score: 0 SCORE All systems reviewed, negative; Except for above Physical Exam Vitals & Measurements HR: 72(Peripheral) RR: 16 BP: 106/70 HT: 63 in HT: 160 cm WT: 86 kg WT: 189.2 lb BMI: 33.59 General: in Nad Abdomen: Soft, NTND Assessment/Plan 1. Primary biliary cholangitis (K74.3: Primary biliary cirrhosis) Diagnosed more than 20 years ago, used to follow with Dr. Meza, last visit was in the summer virtually Her alk phos was in the 150 range last time, in October was 180, it is now 132 at today's visit, otherwise CBC and CMP were normal No more itching for more than 20 years She is currently on Malathi 15 mg/kg/day, fenofibrate every other day and Ocaliva 2.5 mg daily, she is afraid to increase it because she did not tolerate it in the past which she wanted to talk to Dr. Meza about that, but he is not in her network anymore She takes vitamin D daily Had DEXA scan done last year FibroScan last year did not show steatosis or scarring We discussed increasing Ocaliva or fenofibrate, but at this time her labs are stable so we will keep dosing the same She also tested positive for BRCA2, she is going through screening for pancreatic cancer at and she is involved in a clinical study for that Referral placed to hepatology at - Dr Ryan Discussed lifestyle modifications with the patient as she has concerns of weight gain, we discussed calorie counting and diet. Also discussed referral to weight loss clinic in and Mediterranean diet - Family member screening discussed Family members of patients with PBC are at increased risk of developing the disease, particularly among female FDRs, including sisters and daughters.(43) The value of screening family members has not been firmly established; however, screening is usually recommended for female FDRs beginning at age 30. Screening is usually done by measuring the serum ALP level and, if it is elevated, assessing for AMA; this could be repeated at 5-year intervals if AMA-negative initially. EUS/ERCP every other year Patient is having ovaries and fallopian tubes removed 01/19/24 d/t BRCA2 gene 2. Vitamin D deficiency (E55.9: Vitamin D deficiency, unspecified) Continue vitamin D supplementation 3. Osteopenia (M85.80: Other specified disorders of bone density and st (more content not included)... Normal [facility] Comment on above: Result Comment: Elec tronically Signed By: Vitaly Stauffer MD\.br\Date and Time Signed: 01/18/24 11:48 EDT\.br\Electronically Co-Signed By: Verenice Hair MA\.br\Date and Time Co-Signed: 01/18/24 11:38 EDT Blood type and Indirect anti body screen panel (Bld)on 01-16-2024 ABO group Nom (Bld) O Normal [facility] Comment on above: Performed By: #### 3 4532-2 ####CONSTANZA Moore ([id number])[facility] ([facility])[address] [place] [address] Blood group antibody screen Ql Negative [facility] Comment on above: Performed By: #### 3 4532-2 ####CONSTANZA Moore ([id number])[facility] ([facility])[address] [place] [address] D Ag Ql (Bld) Positive [facility] Comment on above: Performed By: #### 3 4532-2 ####CONSTANZA Moore ([id number])[facility] ([facility])[address] [place] [address] CBC W Auto Differential pane l (Bld)on 01-16-2024 Basophils (Bld) [#/Vol] 0.04 x10*3/uL Normal 0.00-0.10 [facility] Comment on above: Performed By: #### 5 7021-8 #### VERONICA CHERRY ([id number]) [facility] ([facility]) [address] [place] [address] Basophils/100 WBC (Bld) 0.7 % Normal 0.0-2.0 [facility] Comment on above: Performed By: #### 5 7021-8 #### VERONICA CHERRY ([id number]) [facility] ([facility]) [address] [place] [address] Eosinophils (Bld) [#/Vol] 0.18 x10*3/uL Normal 0.00-0.70 [facility] Comment on above: Performed By: #### 5 7021-8 #### VERONICA CHERRY ([id number]) [facility] ([facility]) [address] [place] [address] 31185 Eosinophils/100 WBC (Bld) 3.1 % Normal 0.0-6.0 [facility] Comment on above: Performed By: #### 5 7021-8 #### VERONICA CHERRY ([id number]) [facility] ([facility]) [address] [place] [address]64 Erythrocyte distribution width (RBC) [Ratio] 13.0 % Normal 11.5-14.5 [facility] Comment on above: Performed By: #### 5 7021-8 #### VERONICA CHERRY ([id number]) [facility] ([facility]) [address] [place] [address]80[address] Hematocrit (Bld) [Volume fraction] 36.5 % Normal 36.0-46.0 [facility] Comment on above: Performed By: #### 5 7021-8 #### MIRACLEIBVANIA BERRIOS RIO CALI ([id number]) [facility] ([facility]) [address] [place] [address] Hemoglobin (Bld) [Mass/Vol] 12.0 g/dL Normal 12.0-16.0 [facility] Comment on above: Performed By: #### 5 7021-8 #### MIRACLEIBVANIA BERRIOS RIO CALI ([id number]) [facility] ([facility]) [address] [place] [address]12[address] Immature granulocytes (Bld) [#/Vol] 0.02 x10*3/uL Normal 0.00-0.70 [facility] Comment on above: Performed By: #### 5 7021-8 #### VERONICA CHERRY ([id number]) [facility] ([facility]) [address] [place] [address] Immature granulocytes/100 WBC (Bld) 0.3 % Normal 0.0-0.9 [facility] Comment on above: Result Comment: Rea ture Granulocyte Count (IG) includes promyelocytes, myelocytes and metamyelocytes but does not include bands. Percent differential counts (%) should be interpreted in the context of the absolute cell counts (cells/UL). Performed By: #### 5 7021-8 #### VERONICA BERRIOS RIO CALI ([id number]) [facility] ([facility]) [address] [place] [address] Lymphocytes (Bld) [#/Vol] 2.27 x10*3/uL Normal 1.20-4.80 [facility] Comment on above: Performed By: #### 5 7021-8 #### MIRACLEIBVANIA PARTH CALI ([id number]) [facility] ([facility]) [address] [place] [address] 65100 Lymphocytes/100 WBC (Bld) 38.5 % Normal 13.0-44.0 [facility] Comment on above: Performed By: #### 5 7021-8 #### MIRACLEIBELIHANNA BERRIOSPARTH CALI ([id number]) [facility] ([facility]) [address] [place] [address] 37934 MCH (RBC) [Entitic mass] 29.6 pg Normal 26.0-34.0 [facility] Comment on above: Performed By: #### 5 7021-8 #### VERONICA CHERRY ([id number]) [facility] ([facility]) [address] [place] [address] 92046 MCHC (RBC) [Mass/Vol] 32.9 g/dL Normal 32.0-36.0 [facility] Comment on above: Performed By: #### 5 7021-8 #### VERONICA CHERRY ([id number]) [facility] ([facility]) [address] [place] [address] MCV (RBC) [Entitic vol] 90 fL Normal 80-100 [facility] Comment on above: Performed By: #### 5 7021-8 #### VERONICA CHERRY ([id number]) [facility] ([facility]) [address] [place] [address] 76597 Monocytes (Bld) [#/Vol] 0.57 x10*3/uL Normal 0.10-1.00 [facility] Comment on above: Performed By: #### 5 7021-8 #### VERONICA CHERRY ([id number]) [facility] ([facility]) [address] [place] [address] 46[address] Monocytes/100 WBC (Bld) 9.7 % Normal 2.0-10.0 [facility] Comment on above: Performed By: #### 5 7021-8 #### VERONICA CHERRY ([id number]) [facility] ([facility]) [address] [place] [address] Neutrophils (Bld) [#/Vol] 2.82 x10*3/uL Normal 1.20-7.70 [facility] Comment on above: Result Comment: Perc ent differential counts (%) should be interpreted in the context of the absolute cell counts (cells/uL). Performed By: #### 5 7021-8 #### VERONICA CHERRY ([id number]) [facility] ([facility]) [address] [place] [address] 23128 Neutrophils/100 WBC (Bld) 47.7 % Normal 40.0-80.0 [facility] Comment on above: Performed By: #### 5 7021-8 #### VERONICA CHERRY ([id number]) [facility] ([facility]) [address] [place] [address] 07542 Nucleated RBC/100 WBC (Bld) [Ratio] 0.0 /100 WBCs Normal 0.0-0.0 [facility] Comment on above: Performed By: #### 5 7021-8 #### VERONICA CHERRY ([id number]) [facility] ([facility]) [address] [place] [address] 90764 Platelets (Bld) [#/Vol] 305 x10*3/uL Normal 150-450 [facility] Comment on above: Performed By: #### 5 7021-8 #### VERONICA CHERRY ([id number]) [facility] ([facility]) [address] [place] [address] 76647 RBC (Bld) [#/Vol] 4.06 x10*6/uL Normal 4.00-5.20 [facility] Comment on above: Performed By: #### 5 7021-8 #### VERONICA CHERRY ([id number]) [facility] ([facility]) [address] [place] [address] 44990 WBC (Bld) [#/Vol] 5.9 x10*3/uL Normal 4.4-11.3 [facility] Comment on above: Performed By: #### 5 7021-8 #### VERONICA CHERRY ([id number]) [facility] ([facility]) [address] [place] [address] 66622 Calcidiolon 01-16-2024 25-hydroxyvitamin D3 [Mass/Vol] 58 ng/mL Normal 30-100 [facility] Comment on above: Order Comment: Defic iency: < 20 ng/mlInsufficiency: 20-29 ng/mlSufficiency: 30-100 ng/mlThis assay accurately quantifies the sum of Vitamin D3, 25-Hydroxy and Vitamin D2,25-Hydroxy. Performed By: #### 1 989-3 ####VERONICA CHERRY ([id number])[facility] ([facility])[address] [place] [address] Cancer Ag 19-9on 01-16-2024 Cancer Ag 19-9 Qn 29.07 [arb'U]/mL Normal <35.00 U [facility] Comment on above: Order Comment: CA 19 -9 testing is performed by chemiluminescent immunoassay using the Tonx. Values obtained with different analytic methods cannot beused interchangeably.Serum CA 19-9 measurement is indicated for the serial measurement of CA 19-9 to aid in the management of patients diagnosed with cancers of the exocrine pancreas. This assay is not intended for screening or diagnosis of cancer in the general population. The results must not be used as the sole means for clinical diagnosis or patient management decisions.Patients known to be genotypically negative for the Neftali blood group antigens will be unable to produce CA 19-9 antigen, even in malignant tissue. Phenotyping for the presence of the Neftali antigen may be insufficient todetect true Neftali antigen negative individuals.The results must not be used as the sole means for clinical diagnosis or patient management decisions. Performed By: #### 2 4108-3 ####CONSTANZA Moore ([id number])[facility] ([facility])[id number] [place] [address]992 Coagulation surface inducedo n 01-16-2024 aPTT Coag (PPP) [Time] 35 s Normal 27-38 [facility] Comment on above: Order Comment: The A PTT is no longer used for monitoring Unfractionated Heparin Therapy. For monitoring Heparin Therapy, use the Heparin Assay. Performed By: #### 1 4979-9 ####VERONICA CHERRY ([id number])[facility] ([facility])[address] [place] [address]707 Coagulation tissue factor in ducedon 01-16-2024 PT Coag (PPP) [Time] 10.8 s Normal 9.8-12.8 [facility] Comment on above: Performed By: #### 5 902-2 ####VERONICA CHERRY ([id number])[facility] ([facility])[address] [place] [address] Comprehensive metabolic 2000 panelon 01-16-2024 Albumin BCP dye [Mass/Vol] 4.3 g/dL Normal 3.4-5.0 [facility] Comment on above: Performed By: #### 2 4323-8 ####VERONICA CHERRY ([id number])[facility] ([facility])[address] [place] [address] ALP [Catalytic activity/Vol] 132 U/L High 33-110 [facility] Comment on above: Performed By: #### 2 4323-8 ####VERONICA CHERRY ([id number])[facility] ([facility])[address] [place] [address] ALT With P-5'-P [Catalytic activity/Vol] 36 U/L Normal 7-45 [facility] Comment on above: Result Comment: Suzanne ents treated with Sulfasalazine may generate falsely decreased results for ALT. Performed By: #### 2 4323-8 ####VERONICA CHERRY ([id number])[facility] ([facility])[address] [place] [address] Anion gap [Moles/Vol] 11 mmol/L Normal 10-20 [facility] Comment on above: Performed By: #### 2 4323-8 ####VERONICA CHERRY ([id number])[facility] ([facility])[address] [place] [address] AST With P-5'-P [Catalytic activity/Vol] 25 U/L Normal 9-39 [facility] Comment on above: Performed By: #### 2 4323-8 ####VERONICA CHERRY ([id number])[facility] ([facility])[address] [place] [address] Bilirubin [Mass/Vol] 0.5 mg/dL Normal 0.0-1.2 [facility] Comment on above: Performed By: #### 2 4323-8 ####VERONICA CHERRY ([id number])[facility] ([facility])[address] [place] [address] Calcium [Mass/Vol] 9.3 mg/dL Normal 8.6-10.[address] [facility] Comment on above: Performed By: #### 2 4323-8 ####MIRACLEIBVANIA CHERRY ([id number])[facility] ([facility])[address] [place] [address] Chloride [Moles/Vol] 102 mmol/L Normal 98-107 [facility] Comment on above: Performed By: #### 2 4323-8 ####VERONICA CHERRY ([id number])[facility] ([facility])[address] [place] [address] CO2 [Moles/Vol] 29 mmol/L Normal 21-32 [facility] Comment on above: Performed By: #### 2 4323-8 ####VERONICA CHERRY ([id number])[facility] ([facility])[address] [place] [address] Creatinine [Mass/Vol] 0.75 mg/dL Normal 0.50-1.05 [facility] Comment on above: Performed By: #### 2 4323-8 ####VERONICA CHERRY ([id number])[facility] ([facility])[address] [place] [address] GFR/1.73 sq M.predicted MDRD (S/P/Bld) [Vol rate/Area] mL/min/{1.73_m2} Normal >60 [facility] Comment on above: Result Comment: Calc ulations of estimated GFR are performed using the 2020 CKD-EPI Study Refit equation without the race variable for the IDMS-Traceable creatinine methods. https://jasn.asnjournals.org/content//ASN.66875 44515 Performed By: #### 2 4323-8 ####VERONICA CHERRY ([id number])[facility] ([facility])[address] [facility] [place] [place] [address] Glucose [Mass/Vol] 95 mg/dL Normal 74-[address] [facility] Comment on above: Performed By: #### 2 4323-8 ####VERONICA CHERRY ([id number])[facility] ([facility])[address] [facility] [place] [address] Potassium [Moles/Vol] 4.2 mmol/L Normal 3.5-5.3 [facility] Comment on above: Performed By: #### 2 4323-8 ####VERONICA CHERRY ([id number])[facility] ([facility])[address] [place] [address] Protein [Mass/Vol] 7.4 g/dL Normal 6.4-8.[address] [facility] Comment on above: Performed By: #### 2 4323-8 ####VERONICA CHERRY ([id number])[facility] ([facility])[address] [facility] [place] [address] Sodium [Moles/Vol] 138 mmol/L Normal 136-[address] [facility] Comment on above: Performed By: #### 2 4323-8 ####VERONICA CHERRY ([id number])[facility] (C)[address] [facility] [place] [place] [address] Urea nitrogen [Mass/Vol] 17 mg/dL Normal 6-23 [facility] Comment on above: Performed By: #### 2 4323-8 ####VERONICA CHERRY ([id number])[facility] ([facility])[address] [facility] [place] [place] [address] PT Coag (PPP) [Time]on 01-15 INR Coag (PPP) [Relative time] 1.0 Normal 0.9-1.1 [facility] Comment on above: Performed By: #### 5 902-2 ####VERONICA CHERRY ([id number])[facility] ([address] [address] BI BREAST BIOPSY CLIP IMAGIN Tru 12-21-2023 BI BREAST BIOPSY CLIP IMAGING Interpreted By: Jasvir Bass, ADDENDUM: Pathology is available for the MRI guided biopsy of a right breast mass. Pathology shows breast parenchyma with a small intraductal papilloma, usual ductal hyperplasia, columnar cell change and apocrine metaplasia. Imaging and pathology are concordant. This is benign pathology. A six-month MRI follow-up is suggested. Method of Detection: Category Smri - Screening MRI Signed by: Jasvir Bass 12/27/2023 9:32 PM -------- ORIGINAL REPORT -------- Dictation workstation: [id number] Interpreted By: Jasvir Bass, and Yessi Sweeney STUDY: BI MR BREAST VACUUM ASSISTED BIOPSY; BI BREAST BIOPSY CLIP IMAGING; 12/21/2023 10:21 am; 12/21/2023 10:31 am ACCESSION NUMBER(S): [id number]; [id number] ORDERING CLINICIAN: KELY CRAIN INDICATION: The patient's recent MRI dated 11/26/2023 demonstrates an enhancing right breast mass. COMPARISON: MRI dated 11/26/2023 FINDINGS: PREPROCEDURAL CONSULTATION: The history and physical exam pertinent to the procedure were reviewed and no updates were made. The procedure was explained to the patient including the risks, benefits, and alternatives. Medications were discussed, including any prior use of blood thinning medications by the patient. Patient allergies were reviewed. The risks, including but not limited to infection and bleeding, were reviewed by the performing physician and the patient agreed to undergo the procedure. Prior to the procedure, an audible timeout was done to verify patient identification, site and type of procedure. Drs. Jasvir Bass and Patel Dickson, a radiology nurse and an extractions technologist were present. PROCEDURE: The patient was placed on the MRI scanner within the breast coil with mild compression on the right breast. T1 weighted fat saturation axial images were obtained before and after administration of 17 mL intravenous Dotarem. The enhancing area of concern was identified. The [employer] software program was used to localize the enhancing area of concern. The patient was taken out of the scanner and the skin was sterilely prepped. 10 mL of buffered 1% lidocaine was injected subcutaneously and then into the deeper tissues. Subsequently, the trochar and sheath were advanced into the breast at the designated depth. The trochar was removed and a plastic stylet was placed into the sheath and the patient was placed back into the scanner. T1 weighted fat saturation images were again obtained. The stylet tip was in good position in relation to the enhancing mass. The stylet was removed and the 9-gauge Suros vacuum-assisted needle was placed into the sheath. 12 tissue core specimens were obtained. The biopsy needle was removed. An X-shaped tissue marker was placed into the biopsy site. The patient was then taken out of the scanner and hemostasis was achieved with manual compression. There was minimal bleeding (estimated blood loss less than 10 mL). A sterile dressing was applied at the site of biopsy. The patient was then escorted to the breast center by a radiology nurse. The patient tolerated the procedure without difficulty. Pathology specimens were labeled with patient identifiers while the patient was in the procedure room, and then sent to the pathology department. The post biopsy mammogram demonstrates satisfactory placement of the tissue marker. The patient experienced no complications during the procedure. Home-going/follow-up instructions were reviewed with the patient before she left the department. IMPRESSION: Status post MRI guided vacuum-assisted core needle biopsy of right breast mass followed by placement of tissue marker. Pathology is pending. POST PROCEDURE MAMMOGRAM FOR MARKER PLACEMENT. I personally reviewed the images/study and I agree with Dr. Patel Dickson and the findings as stated. MACRO: None Signed by: Jasvir Bass 12/21/2023 11:09 AM Dictation workstation: [id number] [facility] BI MR BREAST VACUUM ASSISTED BIOPSYon 12-21-2023 BI MR BREAST VACUUM ASSISTED BIOPSY Interpreted By: Jasvir Bass, ADDENDUM: Pathology is available for the MRI guided biopsy of a right breast mass. Pathology shows breast parenchyma with a small intraductal papilloma, usual ductal hyperplasia, columnar cell change and apocrine metaplasia. Imaging and pathology are concordant. This is benign pathology. A six-month MRI follow-up is suggested. Method of Detection: Category Smri - Screening MRI Signed by: Jasvir Bass 12/27/2023 9:32 PM -------- ORIGINAL REPORT -------- Dictation workstation: [id number] Interpreted By: Jasvir Bass and Abuhamdeh Imran STUDY: BI MR BREAST VACUUM ASSISTED BIOPSY; BI BREAST BIOPSY CLIP IMAGING; 12/21/2023 10:21 am; 12/21/2023 10:31 am ACCESSION NUMBER(S): [id number]; [id number] ORDERING CLINICIAN: KELY CRAIN INDICATION: The patient's recent MRI dated 11/26/2023 demonstrates an enhancing right breast mass. COMPARISON: MRI dated 11/26/2023 FINDINGS: PREPROCEDURAL CONSULTATION: The history and physical exam pertinent to the procedure were reviewed and no updates were made. The procedure was explained to the patient including the risks, benefits, and alternatives. Medications were discussed, including any prior use of blood thinning medications by the patient. Patient allergies were reviewed. The risks, including but not limited to infection and bleeding, were reviewed by the performing physician and the patient agreed to undergo the procedure. Prior to the procedure, an audible timeout was done to verify patient identification, site and type of procedure. Drs. Jasvir Bass and Patel Dickson, a radiology nurse and an extractions technologist were present. PROCEDURE: The patient was placed on the MRI scanner within the breast coil with mild compression on the right breast. T1 weighted fat saturation axial images were obtained before and after administration of 17 mL intravenous Dotarem. The enhancing area of concern was identified. The [employer] software program was used to localize the enhancing area of concern. The patient was taken out of the scanner and the skin was sterilely prepped. 10 mL of buffered 1% lidocaine was injected subcutaneously and then into the deeper tissues. Subsequently, the trochar and sheath were advanced into the breast at the designated depth. The trochar was removed and a plastic stylet was placed into the sheath and the patient was placed back into the scanner. T1 weighted fat saturation images were again obtained. The stylet tip was in good position in relation to the enhancing mass. The stylet was removed and the 9-gauge Suros vacuum-assisted needle was placed into the sheath. 12 tissue core specimens were obtained. The biopsy needle was removed. An X-shaped tissue marker was placed into the biopsy site. The patient was then taken out of the scanner and hemostasis was achieved with manual compression. There was minimal bleeding (estimated blood loss less than 10 mL). A sterile dressing was applied at the site of biopsy. The patient was then escorted to the breast center by a radiology nurse. The patient tolerated the procedure without difficulty. Pathology specimens were labeled with patient identifiers while the patient was in the procedure room, and then sent to the pathology department. The post biopsy mammogram demonstrates satisfactory placement of the tissue marker. The patient experienced no complications during the procedure. Home-going/follow-up instructions were reviewed with the patient before she left the department. IMPRESSION: Status post MRI guided vacuum-assisted core needle biopsy of right breast mass followed by placement of tissue marker. Pathology is pending. POST PROCEDURE MAMMOGRAM FOR MARKER PLACEMENT. I personally reviewed the images/study and I agree with Dr. Patel Dickson and the findings as stated. MACRO: None Signed by: Jasvir Bass 12/21/2023 11:09 AM Dictation workstation: [id number] [facility] MG Breast - unilateral Singl e view for clip placementon 12-21-2023 Radiology Study observation (narrative) [facility] Work Phone: MG Breast Viewson 12-21-2023 Radiology Study observation (narrative) [facility] Work Phone: No Panel Informationon 12-20 Status post MRI guid ed vacuum-assisted core needle biopsy of right breast mass followed by placement of tissue marker. Pathology is pending. POST PROCEDURE MAMMOGRAM FOR MARKER PLACEMENT. I personally reviewed the images/study and I agree with Dr. Patel Dickson and the findings as stated. MACRO: None Signed by: Jasvir Bass 12/21/2023 11:09 AM Dictation workstation: [id number] [facility] Interpreted By: Jasvir Bass, Juan Luis Sweeney STUDY: BI MR BREAST VACUUM ASSISTED BIOPSY; BI BREAST BIOPSY CLIP IMAGING; 12/21/2023 10:21 am; 12/21/2023 10:31 am ACCESSION NUMBER(S): [id number]; [id number] ORDERING CLINICIAN: KELY CRAIN INDICATION: The patient's recent MRI dated 11/26/2023 demonstrates an enhancing right breast mass. COMPARISON: MRI dated 11/26/2023 FINDINGS: PREPROCEDURAL CONSULTATION: The history and physical exam pertinent to the procedure were reviewed and no updates were made. The procedure was explained to the patient including the risks, benefits, and alternatives. Medications were discussed, including any prior use of blood thinning medications by the patient. Patient allergies were reviewed. The risks, including but not limited to infection and bleeding, were reviewed by the performing physician and the patient agreed to undergo the procedure. Prior to the procedure, an audible timeout was done to verify patient identification, site and type of procedure. Drs. Jasvir Bass and Patel Dickson, a radiology nurse and an extractions technologist were present. PROCEDURE: The patient was placed on the MRI scanner within the breast coil with mild compression on the right breast. T1 weighted fat saturation axial images were obtained before and after administration of 17 mL intravenous Dotarem. The enhancing area of concern was identified. The [employer] software program was used to localize the enhancing area of concern. The patient was taken out of the scanner and the skin was sterilely prepped. 10 mL of buffered 1% lidocaine was injected subcutaneously and then into the deeper tissues. Subsequently, the trochar and sheath were advanced into the breast at the designated depth. The trochar was removed and a plastic stylet was placed into the sheath and the patient was placed back into the scanner. T1 weighted fat saturation images were again obtained. The stylet tip was in good position in relation to the enhancing mass. The stylet was removed and the 9-gauge Suros vacuum-assisted needle was placed into the sheath. 12 tissue core specimens were obtained. The biopsy needle was removed. An X-shaped tissue marker was placed into the biopsy site. The patient was then taken out of the scanner and hemostasis was achieved with manual compression. There was minimal bleeding (estimated blood loss less than 10 mL). A sterile dressing was applied at the site of biopsy. The patient was then escorted to the breast center by a radiology nurse. The patient tolerated the procedure without difficulty. Pathology specimens were labeled with patient identifiers while the patient was in the procedure room, and then sent to the pathology department. The post biopsy mammogram demonstrates satisfactory placement of the tissue marker. The patient experienced no complications during the procedure. Home-going/follow-up instructions were reviewed with the patient before she left the department. [facility] Jasvir Bass MD - 12/21/2023 Interpreted By: Stamatis, Juan Luis Tay STUDY: BI MR BREAST VACUUM ASSISTED BIOPSY; BI BREAST BIOPSY CLIP IMAGING; 12/21/2023 10:21 am; 12/21/2023 10:31 am ACCESSION NUMBER(S): [id number]; [id number] ORDERING CLINICIAN: KELY CRAIN INDICATION: The patient's recent MRI dated 11/26/2023 demonstrates an enhancing right breast mass. COMPARISON: MRI dated 11/26/2023 FINDINGS: PREPROCEDURAL CONSULTATION: The history and physical exam pertinent to the procedure were reviewed and no updates were made. The procedure was explained to the patient including the risks, benefits, and alternatives. Medications were discussed, including any prior use of blood thinning medications by the patient. Patient allergies were reviewed. The risks, including but not limited to infection and bleeding, were reviewed by the performing physician and the patient agreed to undergo the procedure. Prior to the procedure, an audible timeout was done to verify patient identification, site and type of procedure. Drs. Jasvir Bass and Patel Dickson, a radiology nurse and an extractions technologist were present. PROCEDURE: The patient was placed on the MRI scanner within the breast coil with mild compression on the right breast. T1 weighted fat saturation axial images were obtained before and after administration of 17 mL intravenous Dotarem. The enhancing area of concern was identified. The [employer] software program was used to localize the enhancing area of concern. The patient was taken out of the scanner and the skin was sterilely prepped. 10 mL of buffered 1% lidocaine was injected subcutaneously and then into the deeper tissues. Subsequently, the trochar and sheath were advanced into the breast at the designated depth. The trochar was removed and a plastic stylet was placed into the sheath and the patient was placed back into the scanner. T1 weighted fat saturation images were again obtained. The stylet tip was in good position in relation to the enhancing mass. The stylet was removed and the 9-gauge Suros vacuum-assisted needle was placed into the sheath. 12 tissue core specimens were obtained. The biopsy needle was removed. An X-shaped tissue marker was placed into the biopsy site. The patient was then taken out of the scanner and hemostasis was achieved with manual compression. There was minimal bleeding (estimated blood loss less than 10 mL). A sterile dressing was applied at the site of biopsy. The patient was then escorted to the breast center by a radiology nurse. The patient tolerated the procedure without difficulty. Pathology specimens were labeled with patient identifiers while the patient was in the procedure room, and then sent to the pathology department. The post biopsy mammogram demonstrates satisfactory placement of the tissue marker. The patient experienced no complications during the procedure. Home-going/follow-up instructions were reviewed with the patient before she left the department. IMPRESSION: Status post MRI guided vacuum-assisted core needle biopsy of right breast mass followed by placement of tissue marker. Pathology is pending. POST PROCEDURE MAMMOGRAM FOR MARKER PLACEMENT. I personally reviewed the images/study and I agree with Dr. Patel Dickson and the findings as stated. 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 Breast, right, core biopsy: --Breast parenchyma with small intraductal papilloma, usual ductal hyperplasia, columnar cell change and apocrine metaplasia Note: Immunohistochemical studies have been performed. CK5/6 is positive in usual ductal hyperplasia. Estrogen receptor shows mosaic pattern of expression and usual ductal hyperplasia. Laboratory comment By the signature on this report, the individual or group listed as making the Final Interpretation/Diagnos is certifies that they have reviewed this case. Path report.relevant Hx Right breast mass MRI core bipsy Path report.gross observation SEE COMMENT A: Received in formalin, labeled with the patient's name and hospital number and right breast mass MRI core biopsy , are multiple irregular/cylindrical segments of yellow-white fatty soft tissue aggregating to 4.6 x 2.8 x 0.6 cm. The specimen is submitted in toto in 9 cassettes. SMS NOTE: Ischemia time: 12/21/2023 9:45 AM. This specimen was placed into formalin at: 12/21/2023 9:50 AM. LAB AP ASR DISCLAIMER One or more of the reagents used to perform assays on this specimen MAY have contained components considered to be analyte specific reagents (ASR's). ASR's have not been cleared or approved by the U.S. Food and Drug Administration. These assays were developed and their performance characteristics determined by the Department of Pathology at [facility]. The FDA does not require this test to go through premarket FDA review. This test is used for clinical purposes. It should not be regarded as investigational or for research. This laboratory is certified under the Clinical Laboratory Improvement Amendments (CLIA) as qualified to perform high complexity clinical laboratory testing. The assays were performed with appropriate positive and negative controls which stained appropriately. [facility] Comment on above: Order Comment: Right breast mass MRI core bipsy Blood type and Indirect anti body screen panel (Bld)on 12-19-2023 ABO group Nom (Bld) [facility] Comment on above: Performed By: #### 3 4532-2 #### CONSTANZA Moore ([id number]) [facility] ([facility]) [address] [place] [address] Blood group antibody screen Ql Negative [facility] Comment on above: Performed By: #### 3 4532-2 #### CONSTANZA Moore ([id number]) [facility] ([facility]) [address] [place] [address] D Ag Ql (Bld) Positive [facility] Comment on above: Result Comment: 2nd ABO test required. Order and Collect VERAB Performed By: #### 3 4532-2 #### CONSTANZA Moore ([id number]) [facility] ([facility]) [address] [place] [address] CBC panel Auto (Bld)on 12-18 Erythrocyte distribution width (RBC) [Ratio] 12.9 % Normal 11.5-14.5 [facility] Comment on above: Performed By: #### 5 8410-2 #### CONSTANZA Moore ([id number]) [facility] ([facility]) [address] [place] [address] 17284 Hematocrit (Bld) [Volume fraction] 41.7 % Normal 36.0-46.0 [facility] Comment on above: Performed By: #### 5 8410-2 #### CONSTANZA Moore ([id number]) [facility] ([facility]) [address] [place] [address] 37900 Hemoglobin (Bld) [Mass/Vol] 13.4 g/dL Normal 12.0-16.0 [facility] Comment on above: Performed By: #### 5 8410-2 #### CONSTANZA Moore ([id number]) [facility] ([facility]) [address] [place] [address] 03432 MCH (RBC) [Entitic mass] 28.9 pg Normal 26.0-34.0 [facility] Comment on above: Performed By: #### 5 8410-2 #### CONSTANZA Moore ([id number]) [facility] ([facility]) [address] [place] [address] 33392 MCHC (RBC) [Mass/Vol] 32.1 g/dL Normal 32.0-36.0 [facility] Comment on above: Performed By: #### 5 8410-2 #### CONSTANZA Moore ([id number]) [facility] ([facility]) [address] [place] [address] 20410 MCV (RBC) [Entitic vol] 90 fL Normal 80-100 [facility] Comment on above: Performed By: #### 5 8410-2 #### CONSTANZA Moore ([id number]) [facility] ([facility]) [address] [place] [address] 92311 Nucleated RBC/100 WBC (Bld) [Ratio] 0.0 /100 WBCs Normal 0.0-0.0 [facility] Comment on above: Performed By: #### 5 8410-2 #### CONSTANZA Moore ([id number]) [facility] ([facility]) [id number] [place] [address] 73046 Platelets (Bld) [#/Vol] 331 x10*3/uL Normal 150-450 [facility] Comment on above: Performed By: #### 5 8410-2 #### CONSTANZA Moore ([id number]) [facility] ([facility]) [id number] [place] [address] 97486 RBC (Bld) [#/Vol] 4.64 x10*6/uL Normal 4.00-5.20 [facility] Comment on above: Performed By: #### 5 8410-2 #### CONSTANZA Moore ([id number]) [facility] ([facility]) [address] [place] [address] 74810 WBC (Bld) [#/Vol] 8.1 x10*3/uL Normal 4.4-11.3 [facility] Comment on above: Performed By: #### 5 8410-2 #### CONSTANZA Moore ([id number]) [facility] ([facility]) [address] [place] [address] 75608 Comprehensive metabolic 2000 panelon 12-19-2023 Albumin BCP dye [Mass/Vol] 4.5 g/dL Normal 3.4-5.0 [facility] Comment on above: Performed By: #### 2 4323-8 #### CONSTANZA Moore ([id number]) [facility] ([facility]) [id number] [place] [address] 73527 ALP [Catalytic activity/Vol] 150 U/L High 33-110 [facility] Comment on above: Performed By: #### 2 4323-8 #### CONSTANZA Moore ([id number]) [facility] ([facility]) [id number] [place] [address] 08518 ALT With P-5'-P [Catalytic activity/Vol] 50 U/L High 7-45 [facility] Comment on above: Result Comment: Suzanne ents treated with Sulfasalazine may generate falsely decreased results for ALT. Performed By: #### 2 4323-8 #### CONSTANZA Moore ([id number]) [facility] ([facility]) [address] [place] [address] Anion gap [Moles/Vol] 17 mmol/L Normal 10-20 [facility] Comment on above: Performed By: #### 2 4323-8 #### CONSTANZA Moore ([id number]) [facility] ([facility]) [address] [place] [address] 32706 AST With P-5'-P [Catalytic activity/Vol] 31 U/L Normal 9-39 [facility] Comment on above: Performed By: #### 2 4323-8 #### CONSTANZA Moore ([id number]) [facility] ([facility]) [address] [place] [address] 46209 Bilirubin [Mass/Vol] 0.5 mg/dL Normal 0.0-1.2 [facility] Comment on above: Performed By: #### 2 4323-8 #### CONSTANZA Moore ([id number]) [facility] ([facility]) [address] [place] [address] Calcium [Mass/Vol] 9.9 mg/dL Normal 8.6-10.[address] [facility] Comment on above: Performed By: #### 2 4323-8 #### CONSTANZA Moore ([id number]) [facility] ([facility]) [address] [place] [address] 23383 Chloride [Moles/Vol] 100 mmol/L Normal 98-107 [facility] Comment on above: Performed By: #### 2 4323-8 #### CONSTANZA Moore ([id number]) [facility] ([facility]) [address] [place] [address] 41111 CO2 [Moles/Vol] 27 mmol/L Normal 21-32 [facility] Comment on above: Performed By: #### 2 4323-8 #### CONSTANZA Moore ([id number]) [facility] ([facility]) [address] [place] [address] Creatinine [Mass/Vol] 1.12 mg/dL High 0.50-1.05 [facility] Comment on above: Performed By: #### 2 4323-8 #### CONSTANZA Moore ([id number]) [facility] ([facility]) [address] [place] [address] Glomerular filtration rate/1.73 sq M.predicted 57 mL/min/1.73m*2 Low >60 [facility] Comment on above: Result Comment: Calc ulations of estimated GFR are performed using the 2020 CKD-EPI Study Refit equation without the race variable for the IDMS-Traceable creatinine methods. https://jasn.asnjournals.org/content/early//ASN.03177 23777 Performed By: #### 2 4323-8 #### CONSTANZA Moore ([id number]) [facility] ([facility]) [address] [place] [address] Glucose [Mass/Vol] 81 mg/dL Normal 74-[address] [facility] Comment on above: Performed By: #### 2 4323-8 #### CONSTANZA Moore ([id number]) [facility] ([facility]) [id number] [place] [address] 18116 Potassium [Moles/Vol] 3.9 mmol/L Normal 3.5-5.3 [facility] Comment on above: Performed By: #### 2 4323-8 #### CONSTANZA Moore ([id number]) [facility] ([facility]) [address] [place] [address] Protein [Mass/Vol] 7.7 g/dL Normal 6.4-8.[address] [facility] Comment on above: Performed By: #### 2 4323-8 #### CONSTANZA Moore ([id number]) [facility] ([facility]) [address] [place] [address] Sodium [Moles/Vol] 140 mmol/L Normal 136-[address] [facility] Comment on above: Performed By: #### 2 4323-8 #### CONSTANZA Moore ([id number]) [facility] ([facility]) [address] [place] [address] 61793 Urea nitrogen [Mass/Vol] 14 mg/dL Normal 6-23 [facility] Comment on above: Performed By: #### 2 4323-8 #### CONSTANZA Moore ([id number]) [facility] ([facility]) [address] [place] [address] 18468 PT and aPTT panel Coag (PPP) on 12-19-2023 aPTT Coag (PPP) [Time] 36 s Normal 27-38 [facility] Comment on above: Order Comment: The A PTT is no longer used for monitoring Unfractionated Heparin Therapy. For monitoring Heparin Therapy, use the Heparin Assay. Performed By: #### 3 4529-8 #### CONSTANZA Moore ([id number]) [facility] ([facility]) [address] [place] [address] 42779 INR Coag (PPP) [Relative time] 1.0 Normal 0.9-1.1 [facility] Comment on above: Order Comment: The A PTT is no longer used for monitoring Unfractionated Heparin Therapy. For monitoring Heparin Therapy, use the Heparin Assay. Performed By: #### 3 4529-8 #### CONSTANZA Moore ([id number]) [facility] ([facility]) [address] [place] [address] 21535 PT Coag (PPP) [Time] 11.0 s Normal 9.8-12.8 [facility] Comment on above: Order Comment: The A PTT is no longer used for monitoring Unfractionated Heparin Therapy. For monitoring Heparin Therapy, use the Heparin Assay. Performed By: #### 3 4529-8 #### CONSTANZA Moore ([id number]) [facility] ([facility]) [address] [place] [address] 69493 TSH WITH REFLEX TO FREE T4 I F ABNORMALon 12-19-2023 TSH Qn 1.50 m[IU]/L Normal 0.44-3.98 [facility] Comment on above: Order Comment: TSH t esting is performed using different testing methodology at [facility] than at other [facility]. Direct result comparisons should only be made within the same method. Performed By: #### T EVERETTE #### CONSTANZA Moore ([id number]) [facility] ([facility]) [address] [place] [address] BI US BREAST LIMITED RIGHTon 12-06-2023 BI US BREAST LIMITED RIGHT Interpreted By: Lia Bunch and Avery Ross STUDY: BI US BREAST LIMITED RIGHT; 12/06/2023 1:04 pm ACCESSION NUMBER(S): [id number] ORDERING CLINICIAN: KELY CRAIN INDICATION: MRI directed ultrasound of an enhancing right breast mass. BRCA 2 gene mutation. Family history of breast cancer. COMPARISON: Correlation with breast MRI 11/24/2023 and mammogram 03/30/2023. FINDINGS: A targeted ultrasound of the entire lower outer right breast was performed by a registered pheresis specialist and Dr. Garett Quevedo using elastography. An oval circumscribed hypoechoic mass measuring 0.4 x 0.1 x 0.2 cm is seen at the 8 o'clock position 3 cm from the nipple. It is avascular and soft on elastography. This possibly corresponds with the enhancing breast mass on MRI 11/24/2023. A definite sonographic correlate for the MRI finding is not appreciated. IMPRESSION: Possible sonographic correlate of the enhancing right breast mass previously noted on breast MRI 11/24/2023. Due to its subtle sonographic appearance, further evaluation with surgical consultation and MRI guided biopsy is recommended. Dr. Garett Quevedo explained the findings and recommendations to the patient at the time of exam and Kely Crain CHOPPER OPERATOR. A message was sent to the referring practitioner at the time of this dictation regarding these critical findings. A pre-procedure form was filled out. Method of Detection: Category Smri - Screening MRI BI-RADS CATEGORY: BI-RADS Category: 4 Suspicious. Recommendation: Surgical Consultation and Biopsy. Recommended Date: Immediate. Laterality: Right. For any future breast imaging appointments, please call [phone]). I personally reviewed the images/study and I agree with the findings as stated by fellow physician, Dr. Garett Quevedo. MACRO: Dr. Garett Quevedo discussed the significance and urgency of this critical finding in person with KELY PARAS on 12/06/2023 at 12:55 pm. (-RCF-) Findings: See findings. Signed by: Lia Bunch 12/06/2023 2:25 PM Dictation workstation: Sosei Abnormal [facility] US Breast - right limitedOrd ered By: Lia Bunch on 12-06-2023 Interpretation and review of laboratory results Abnormal [facility] Work Phone: [facility] Work Phone: US Breast - right limitedon 12-06-2023 Possible sonographic correlate of the enhancing right breast mass previously noted on breast MRI 11/24/2023. Due to its subtle sonographic appearance, further evaluation with surgical consultation and MRI guided biopsy is recommended. Dr. Garett Quevedo explained the findings and recommendations to the patient at the time of exam and Kely Crain CHOPPER OPERATOR. A message was sent to the referring practitioner at the time of this dictation regarding these critical findings. A pre-procedure form was filled out. Method of Detection: Category Smri - Screening MRI BI-RADS CATEGORY: BI-RADS Category: 4 Suspicious. Recommendation: Surgical Consultation and Biopsy. Recommended Date: Immediate. Laterality: Right. For any future breast imaging appointments, please call [phone]). I personally reviewed the images/study and I agree with the findings as stated by fellow physician, Dr. Garett Quevedo. MACRO: Dr. Garett Quevedo discussed the significance and urgency of this critical finding in person with KELY PARAS on 12/06/2023 at 12:55 pm. (-RCF-) Findings: See findings. Signed by: Lia Bunch 12/06/2023 2:25 PM Dictation workstation: [id number] [facility] Interpreted By: Lia Bunch and Avery Ross STUDY: BI US BREAST LIMITED RIGHT; 12/06/2023 1:04 pm ACCESSION NUMBER(S): [id number] ORDERING CLINICIAN: KELY CRAIN INDICATION: MRI directed ultrasound of an enhancing right breast mass. BRCA 2 gene mutation. Family history of breast cancer. COMPARISON: Correlation with breast MRI 11/24/2023 and mammogram 03/30/2023. FINDINGS: A targeted ultrasound of the entire lower outer right breast was performed by a registered pheresis specialist and Dr. Garett Quevedo using elastography. An oval circumscribed hypoechoic mass measuring 0.4 x 0.1 x 0.2 cm is seen at the 8 o'clock position 3 cm from the nipple. It is avascular and soft on elastography. This possibly corresponds with the enhancing breast mass on MRI 11/24/2023. A definite sonographic correlate for the MRI finding is not appreciated. [facility] Lia Bunch MD - 12/06/2023 Interpreted By: Lia Bunch and Avery Ross STUDY: BI US BREAST LIMITED RIGHT; 12/06/2023 1:04 pm ACCESSION NUMBER(S): [id number] ORDERING CLINICIAN: KELY CRAIN INDICATION: MRI directed ultrasound of an enhancing right breast mass. BRCA 2 gene mutation. Family history of breast cancer. COMPARISON: Correlation with breast MRI 11/24/2023 and mammogram 03/30/2023. FINDINGS: A targeted ultrasound of the entire lower outer right breast was performed by a registered pheresis specialist and Dr. Garett Quevedo using elastography. An oval circumscribed hypoechoic mass measuring 0.4 x 0.1 x 0.2 cm is seen at the 8 o'clock position 3 cm from the nipple. It is avascular and soft on elastography. This possibly corresponds with the enhancing breast mass on MRI 11/24/2023. A definite sonographic correlate for the MRI finding is not appreciated. IMPRESSION: Possible sonographic correlate of the enhancing right breast mass previously noted on breast MRI 11/24/2023. Due to its subtle sonographic appearance, further evaluation with surgical consultation and MRI guided biopsy is recommended. Dr. Garett Quevedo explained the findings and recommendations to the patient at the time of exam and Kely Crain CHOPPER OPERATOR. A message was sent to the referring practitioner at the time of this dictation regarding these critical findings. A pre-procedure form was filled out. Method of Detection: Category Smri - Screening MRI BI-RADS CATEGORY: BI-RADS Category: 4 Suspicious. Recommendation: Surgical Consultation and Biopsy. Recommended Date: Immediate. Laterality: Right. For any future breast imaging appointments, please call [phone]). I personally reviewed the images/study and I agree with the findings as stated by fellow physician, Dr. Garett Quevedo. MACRO: Dr. Garett Quevedo discussed the significance and urgency of this critical finding in person with KELY CRAIN on 12/06/2023 at 12:55 pm. (-RCF-) Findings: See findings. Signed by: Lia Bunch 12/06/2023 2:25 PM Dictation workstation: [id number] [facility] Work Phone: Radiology Study observation (narrative) [facility] Work Phone: MR Breast - bilateral W cont rast IVOrdered By: Lia Bunch on 11-25-2023 Interpretation and review of laboratory results Abnormal [facility] Work Phone: [facility] Work Phone: MR Breast - bilateral W cont rast Lelia 11-25-2023 Interpreted By: Lia Bunch and Avery Ross STUDY: BI MR BREAST BILATERAL WITH CONTRAST FULL PROTOCOL; 11/24/2023 10:13 am ACCESSION NUMBER(S): [id number] ORDERING CLINICIAN: KELY CRAIN INDICATION: High-risk supplemental screening. BRCA 2 gene mutation. Family history of breast cancer. COMPARISON: Correlation with mammogram dated 03/30/2023, 03/29/2022, 03/25/2021. TECHNIQUE: Using a dedicated breast coil, STIR axial and T1-weighted fat saturation axial images of the breasts were obtained, the latter both before and after intravenous administration of Gadolinium DTPA. On an independent workstation, 3-D images were formulated using Triton including time enhancement curves, subtraction images and MIP images. Intravenous contrast: 17 mL of Dotarem FINDINGS: There is symmetric minimal bilateral background enhancement. Scattered fibroglandular tissue. RIGHT BREAST: An irregular enhancing mass measuring 0.5 x 0.5 x 0.5 cm is seen in the inferolateral breast at anterior depth (series 101, image 166 of 228). There is a possible corresponding asymmetry on mammogram 03/30/2023 on the MLO view. No axillary or internal mammary lymphadenopathy is appreciated. LEFT BREAST: No suspicious mass or nonmass enhancement is identified. No axillary or internal mammary lymphadenopathy is appreciated. NON-BREAST FINDINGS: A few nonenhancing right hepatic cysts are seen. [facility] Lia Bunch MD - 11/25/2023 Interpreted By: Lia Bunch and Sae Bajwa STUDY: BI MR BREAST BILATERAL WITH CONTRAST FULL PROTOCOL; 11/24/2023 10:13 am ACCESSION NUMBER(S): [id number] ORDERING CLINICIAN: KELY CRAIN INDICATION: High-risk supplemental screening. BRCA 2 gene mutation. Family history of breast cancer. COMPARISON: Correlation with mammogram dated 03/30/2023, 03/29/2022, 03/25/2021. TECHNIQUE: Using a dedicated breast coil, STIR axial and T1-weighted fat saturation axial images of the breasts were obtained, the latter both before and after intravenous administration of Gadolinium DTPA. On an independent workstation, 3-D images were formulated using Triton including time enhancement curves, subtraction images and MIP images. Intravenous contrast: 17 mL of Dotarem FINDINGS: There is symmetric minimal bilateral background enhancement. Scattered fibroglandular tissue. RIGHT BREAST: An irregular enhancing mass measuring 0.5 x 0.5 x 0.5 cm is seen in the inferolateral breast at anterior depth (series 101, image 166 of 228). There is a possible corresponding asymmetry on mammogram 03/30/2023 on the MLO view. No axillary or internal mammary lymphadenopathy is appreciated. LEFT BREAST: No suspicious mass or nonmass enhancement is identified. No axillary or internal mammary lymphadenopathy is appreciated. NON-BREAST FINDINGS: A few nonenhancing right hepatic cysts are seen. IMPRESSION: 1. Indeterminate right breast mass. Surgical consultation, MRI directed ultrasound and possible biopsy is recommended. If there is no sonographic correlate, an MRI guided biopsy is recommended. A message was sent to the referring practitioner at the time of this dictation regarding these critical findings using the [employer] notification system. A pre-procedure form was filled out. 2. No MRI evidence of malignancy in the left breast. Method of Detection: Category Smri - Screening MRI BI-RADS CATEGORY: BI-RADS Category: 4 Suspicious. Recommendation: Surgical Consultation and Biopsy. Recommended Date: Immediate. Laterality: Right. For any future breast imaging appointments, please call [phone]). MACRO: Critical Finding: Breast Imaging Abnormality. Notification was initiated on 11/25/2023 at 1:43 pm by Garett Quevedo. (-YCF-) Instructions: Surgical Consultation and Imaging Guided Biopsy. Signed by: Lia Bunch 11/25/2023 2:02 PM Dictation workstation: [id number] [facility] Work Phone: BI MR BREAST BILATERAL WITH CONTRAST FULL PROTOCOLon 11-24-2023 BI MR BREAST BILATERAL WITH CONTRAST FULL PROTOCOL Interpreted By: Lia Bunch, and Sae Bajwa STUDY: BI MR BREAST BILATERAL WITH CONTRAST FULL PROTOCOL; 11/24/2023 10:13 am ACCESSION NUMBER(S): [id number] ORDERING CLINICIAN: KELY CRAIN INDICATION: High-risk supplemental screening. BRCA 2 gene mutation. Family history of breast cancer. COMPARISON: Correlation with mammogram dated 03/30/2023, 03/29/2022, 03/25/2021. TECHNIQUE: Using a dedicated breast coil, STIR axial and T1-weighted fat saturation axial images of the breasts were obtained, the latter both before and after intravenous administration of Gadolinium DTPA. On an independent workstation, 3-D images were formulated using Triton including time enhancement curves, subtraction images and MIP images. Intravenous contrast: 17 mL of Dotarem FINDINGS: There is symmetric minimal bilateral background enhancement. Scattered fibroglandular tissue. RIGHT BREAST: An irregular enhancing mass measuring 0.5 x 0.5 x 0.5 cm is seen in the inferolateral breast at anterior depth (series 101, image 166 of 228). There is a possible corresponding asymmetry on mammogram 03/30/2023 on the MLO view. No axillary or internal mammary lymphadenopathy is appreciated. LEFT BREAST: No suspicious mass or nonmass enhancement is identified. No axillary or internal mammary lymphadenopathy is appreciated. NON-BREAST FINDINGS: A few nonenhancing right hepatic cysts are seen. IMPRESSION: 1. Indeterminate right breast mass. Surgical consultation, MRI directed ultrasound and possible biopsy is recommended. If there is no sonographic correlate, an MRI guided biopsy is recommended. A message was sent to the referring practitioner at the time of this dictation regarding these critical findings using the [employer] notification system. A pre-procedure form was filled out. 2. No MRI evidence of malignancy in the left breast. Method of Detection: Category Smri - Screening MRI BI-RADS CATEGORY: BI-RADS Category: 4 Suspicious. Recommendation: Surgical Consultation and Biopsy. Recommended Date: Immediate. Laterality: Right. For any future breast imaging appointments, please call [phone]). MACRO: Critical Finding: Breast Imaging Abnormality. Notification was initiated on 11/25/2023 at 1:43 pm by Garett Quevedo. (-YCF-) Instructions: Surgical Consultation and Imaging Guided Biopsy. Signed by: Lia Bunch 11/25/2023 2:02 PM Dictation workstation: [id number] Abnormal [facility] MR Breast - bilateral W cont rast Lelia 11-24-2023 Radiology Study observation (narrative) [facility] Work Phone: BI TRANSFER OF OUTSIDE FILMS on 11-21-2023 BI TRANSFER OF OUTSIDE FILMS Outside images for comparison or treatment purposes, not interpreted by Radiologists. Normal [facility] BI TRANSFER OF OUTSIDE FILMS Outside images for comparison or treatment purposes, not interpreted by Radiologists. Normal [facility] Study Interpretation of outs keira studyon 11-21-2023 Outside images for comparison or treatment purposes, not interpreted by Radiologists. IMAGING Outside images for comparison or treatment purposes, not interpreted by Radiologists. IMAGING Outside images for comparison or treatment purposes, not interpreted by Radiologists. IMAGING Ambulatory Visit Summaryon 0 11-14-2023 Ambulatory Visit Summary NITHYA DE DIOS :1965 Visit Date:11/14/2023 Ambulatory Visit Instructions Your Diagnosis Primary biliary cholangitis Vitamin D deficiency Osteopenia Personal history of colonic polyps Your Care Team Attending Physician - Vitaly Stauffer MD Primary Care Physician - SHAIKH GUO MD This Is Your Medications List Contact prescribing physician if questions or concerns [...] ursodiol (ursodiol 500 mg Tab) Procedures Performed Mammography (03/30/2023), Mammography (03/25/2021), Colonoscopy (12/29/2020), Appendectomy, section, Tonsillectomy and adenoidectomy. Discharge Vitals Heart Rate (Peripheral) 80 Respiratory Rate 18 Blood Pressure 120/78 Height 160 cm Height 63 in Weight 84.5 kg Weight 185.9 lb BMI 33.01 What to do next Scheduled Follow-Up Appointments Tuesday 11:00 AM EDT With: Eh URIAS, Vitaly Hernandes Where: [facility] Normal [facility] Gastroenterology Office/Clin ic Noteon 11-14-2023 Gastroenterology Office/Clinic Note Chief Complaint 6 month f/u - PBC HPI Staff Patient is a(n) 58 year old female who presents today for a(n) 6 month follow up. Continues Ocaliva 5 mg daily and ergocalciferol 1250 mg daily. Last DEXA 02/03/23. Hx of colon polyps - TA in 2015, repeated 2020 - colonoscopy due 2027. Denies family hx of colon polyps/cancer. Mother had PBC. Aunt had Crohn's disease. Grandparent had pancreatic cancer. Her alk phos is 50 points higher that previous reading. She also has tested positive for the BRCA 2 gene at . She states she has also been having increased hair loss in the last year. She has gained 50 lbs quickly - over the last 4 years. No drastic diet change. She is not sure if it is thyroid related. Her T4 is high, T3 is low. She spoke with her doctor and he did not know much about the Ocaliva and recommended f/u with us to discuss. Last visit 05/12/23 w/Dr. Bill: Assessment/Plan 1. Primary biliary cholangitis (K74.3: Primary biliary cirrhosis) Patient had a recent FibroScan, which showed no fibrosis and no steatosis. Her alkaline phosphatase is 150. She's on ergocalciferol 1250 mg p.o. daily and Ocaliva 5 mg p.o. daily. She did not tolerate higher doses of Ocaliva in the past, secondary to worsening diarrhea. She is following up with [facility] hepatology also. 2. Vitamin D deficiency (E55.9: [...] her gallbladder distention is physiologic. She is asymptomatic. No need for further evaluation. DEXA 01/2023: IMPRESSION: OSTEOPENIA. THE 10 YEAR PROBABILITY (FRAX) OF A MAJOR OSTEOPOROTIC FRACTURE IS 9.8% AND HIP FRACTURE IS 0.3%. FibroScan 04/28/23: E 4.8, CAP 192, F0/F1, S0 Colonoscopy 12/29/20: Impression: Small nonbleeding internal hemorrhoids, otherwise normal colonoscopy. Recommendations: Repeat colonoscopy:: 7 yrs. EGD 01/23/2016: FINDINGS: 1. Esophagus: The Z line was noted at 40 cm from the incisor. Careful examination of the reminder of the esophagus did not demonstrate any abnormality. 2. STOMACH: Retroflex view demonstrated no signs of gastric varices, or any other abnormalities. Normal gastric mucosa. 3. DUODENUM: Normal Vit D level 10/24/23 @ [facility]: 56.2 CMP 10/26/23 @ [facility]: All normal besides BUN (H) 19.0 and Alk phos (H) 180. EUS report in clinisync from 10/06/23. Sent fax request to . Review of Systems PHQ Score Initial Depression Screen Score: 0 SCORE Physical Exam Vitals & Measurements HR: 80(Peripheral) RR: 18 BP: 120/78 HT: 63 in HT: 160 cm WT: 84.5 kg WT: 185.9 lb BMI: 33.01 Assessment/Plan 1. Primary biliary cholangitis (K74.3: Primary biliary cirrhosis) Diagnosed more than 20 years ago, used to follow with Dr. Meza, last visit was in the summer virtually Her alk phos was in the 150 range last time, in October was 180 No more itching for more than 20 years She is currently on Malathi 15 mg/kg/day, fenofibrate every other day and Ocaliva 2.5 mg daily, she is afraid to increase it because she did not tolerate it in the past which she wanted to talk to Dr. Meza about that, but he is not in her network anymore She takes vitamin D daily Had DEXA scan done last year FibroScan last year did not show steatosis or scarring We discussed increasing Ocaliva or fenofibrate, but will discuss first with Dr. Meza given his the high lift operator taking care of her She also tested positive for BRCA2, she is going through screening for pancreatic cancer at and she is involved in a clinical study for that - Family member screening discussed Family members of patients with PBC are at increased risk of developing the disease, particularly among female FDRs, including sisters and daughters.(43) The value of screening family members has not been firmly established; however, screening is usually recommended for female FDRs beginning at age 30. Screening is usually done by measuring the serum ALP level and, if it is elevated, assessing for AMA; this could be repea (more content not included)... [facility] Comment on above: Result Comment: Elec tronically Signed By: Eh URIAS, Vitaly Hernandes\.br\Date and Time Signed: 11/14/23 12:07 EST Auth for Release of Medical Recordson 11-08-2023 Auth for Release of Medical Records [id number] 0TIFF Normal [facility] ENDOSCOPIC ULTRASOUND (UPPER )on 10-06-2023 ENDOSCOPIC ULTRASOUND (UPPER) Table formatting from the original result was not included. Normal [facility] Endoscopic Ultrasound (Upper )on 10-06-2023 Table formatting fro m the original result was not included. Impression [...] PM Specimens No specimens collected Procedure Location [facility] [address] [facility] [id number] [place] [address] Department [place] [address] Procedure Provider Vance Baires MD [facility] Work Phone: [facility] Work Phone: Radiology Study observation (narrative) [facility] Work Phone: Gastroenterology Office/Clin ic Noteon 05-16-2023 Gastroenterology Office/Clinic Note Chief Complaint 4 mo follow up HPI Staff This is a 58 year old female who presents today for a 4 month follow up. History of Present Illness Nithya De Dios is a 58-year-old white female for follow [...] calcium supplements, whoever i should opt for [id number] options or require a prescription for vitamin [...] shown fluctuations and were elevated, and Dr. Meza has been manageable my primary biliary condition. [...] rubs, murmurs, or gallop. Peripheral: no edema. Gastrointestinal/Abdom en: Abdomen: normal consistency and bowel sounds; no [...] worsening diarrhea. She is following up with [facility] hepatology also. 2. Vitamin D deficiency (E55.9: [...] is asymptomati (more content not included)... [facility] Comment on above: Result Comment: Elec tronically Signed By: Hunter Devi\.br\Date and Time Signed: 05/12/23 18:26 EDT\.br\Electronically Co-Signed By: Leandro BILL MD\.br\Date and Time Co-Signed: 05/16/23 14:00 EDT Ambulatory Visit Summaryon 0 05-12-2023 Ambulatory Visit Summary NITHYA DE DIOS :1965 Visit Date:05/12/2023 Ambulatory Visit Instructions Your [...] AM EDT With: Leandro BILL MD Where: [facility] CNPNon 05-05-2023 CNPN Telephone (GASTA5) NITHYA DE DIOS ([id number]) 1965 F Date Time Provider Department 05/05/23 YAS MEZA GASTA5 During your visit today, we recorded the following information about you: Annette Molina RN 05/05/2023 12:16 PM Signed Pt sent the following MCM regarding US and fibroscan results: I didn?t see these results in my chart for the [facility], so I am sending them. Can you see that Dr. Ortiz sees these? Pt uploaded images of results under scanned docs. Results not viewable in Care Everywhere at this time. See scanned docs for results review. Annette Molina RN May 05, 2023 12:16 PM Yas Meza MD 05/06/2023 1:46 PM Signed Fibroscan w [...] positive [R76.8] 01/21/2021 Encounter Status:Closed by YAS MEZA on 05/06/23 [facility] Postoperative Documentson Postoperative Documents [id number]. 00CD:127 [facility] Consent for Treatmenton 04-02 Consent for Treatment [id number]#1.0 0CD:127 [facility] Lab Reportson 04-20-2023 Lab Reports [id number]#1.0 0CD:127 [facility] Lab Reports [id number] 0CD:127 [facility] US Abdomen, Limitedon 2022 US Abdomen, [...] abnormality of the pancreas. Ordering Provider: YAS MEZA FINAL REPORT Dictated: 04/20/2023 4:51 pm Yas Rodriguez DO Signed (Electronic Signature): 04/20/2023 4:51 pm Signed by: Yas Rodriguez DO Transcribed by: STEFANIE Technologist: JOSSELIN [facility] Physician Orderon 04-12-2023 Physician Order [id number] 0CD:127 [facility] (GASTA5[facility] NITHYA DE DIOS ([id number]) 1965 F Date Time Provider Department 04/07/23 YAS MEZA GASTA5 During your visit today, we recorded the following information about you: Annette Molina RN 2023 10:17 AM Signed Pt sent the following MCM: Dr. Ortiz wanted to know it the scan was vibration or ultrasound, it was ultrasound. Pt provided attachment of fibroscan image results. See pt entered attachment from yesterday 04/06/23. Message sent to Dr. Meza for review. Annette Molina RN 2023 10:17 AM Yas Meza MD 2023 2:59 PM Signed Annette Can [...] (HCC) [K74.3] Order(s):US ABD RIGHT UPPER QUADRANT [[id number]] Order #: [id number] FUTURE US ELASTOGRAPHY LIVER [[id number]] Order #: [id number] FUTURE Prescriptions as of 2023 - alendronate [...] positive [R76.8] 01/21/2021 Encounter Status:Closed by YAS MEZA on 04/07/23 Normal [facility] Lab Reportson 03-24-2023 Lab Reports [id number] CD:127 [facility] Pre-Certification Formon Pre-Certification Form [id number] CD:127 [facility] Pre-Certification Formon Pre-Certification Form [id number] CD:127 [facility] Pre-Certification Formon Pre-Certification Form [id number] 0CD:127 [facility] Retail - Clinical Noteon Retail - Clinical Note [id number] 0CD:127 [facility] BD Bone Density DEXAon 02-04 BD [...] Matson M.D. Transcribed by: STEFANIE Technologist: DARON [facility] Consent for Treatmenton Consent for Treatment [id number] 0CD:127 [facility] CNPNon 01-04-2023 CNPN Telephone (GASTA5) NITHYA DE DIOS ([id number]) 1965 F Date Time Provider Department 01/04/23 YAS MEZA GASTA5 During your visit today, we recorded the following information about you: Constanza Corona RN 01/04/2023 3:19 PM Signed Received the following [employer] message: Dr. Paradise Ortiz wanted to see lab results in 4 months Constanza Corona RN January 04, 2023 3:18 PM Constanza Corona RN 01/05/2023 7:53 AM Signed She sent another nessage that she had labs completed. Constanza Corona RN January 05, 2023 7:53 AM Yas Meza MD 01/05/2023 8:30 AM Signed Lew Can [...] AM Signed Dr Rivera response sent via [employer] message. Constanza Corona RN January 05, 2023 [...] Status:Closed by CONSTANZA CORONA on 01/04/23 [facility] 01-01-2023 Albumin [Mass/Vol] 3.6 g/dL Normal 3.4-5.0 [facility] Comment on above: Performed By: #### L IVER #### [facility] [address] [address] [address] Sincere Wood Albumin/Globulin [Mass ratio] 0.9 {ratio} Normal [facility] Comment on above: Performed By: #### L IVER #### [facility] [address] [place] [address] Dr. Sincere Wood ALP [Catalytic activity/Vol] 166 U/L Critically high 46-116 [facility] Comment on above: Performed By: #### L IVER #### [facility] [address] [place] [address] Dr. Sincere Wood ALT [Catalytic activity/Vol] 49 U/L Normal 14-59 [facility] Comment on above: Performed By: #### L IVER #### [facility] [address] [place] [address] Dr. Sincere Wood AST [Catalytic activity/Vol] 27 U/L Normal 15-37 [facility] Comment on above: Performed By: #### L IVER #### [facility] [address] [place] [address] Dr. Sincere Wood BILI, CONJUGATED 0.1 mg/dL Normal 0.0-0.2 [facility] Comment on above: Performed By: #### L IVER #### [facility] [address] [place] [address] Dr. Sincere Wood Bilirubin [Mass/Vol] 0.3 mg/dL Normal 0.2-1.0 [facility] Comment on above: Performed By: #### L IVER #### [facility] [address] [place] [address] Dr. Sincere Wood Globulin (S) [Mass/Vol] 4.0 g/dL Normal [facility] Comment on above: Performed By: #### L IVER #### [facility] [address] [address] [address] Sincere Wood Protein [Mass/Vol] 7.6 g/dL Normal 6.4-8.2 [facility] Comment on above: Performed By: #### L IVER #### [facility] [address] [address] [address] Sincere Wood MMR IMMUNITYon 11-24-2022 Mumps Abs, IgG 19.7 AU/mL Normal Immune >10.9 [facility] Comment on above: Result Comment: Nega tive <9.0 Equivocal 9.0 - 10.9 Positive >10.9 A positive result generally indicates past exposure to Mumps virus or previous vaccination. Performed By: #### M MRIMMU #### [facility] [address] [place] [address] Dr. Sincere Wood Rubella Antibodies, IgG <0.90 Critically low Immune >0.99 [facility] Comment on above: Result Comment: Non- immune <0.90 Equivocal 0.90 - 0.99 Immune >0.99 Performed By: #### M MRIMMU #### [facility] [address] [place] [address] Dr. Sincere Wood Rubeola Ab, IgG 23.4 AU/mL Normal Immune >16.4 [facility] Comment on above: Result Comment: Nega tive <13.5 Equivocal 13.5 - 16.4 Positive >16.4 Presence of antibodies to Rubeola is presumptive evidence of immunity except when acute infection is suspected. Performed By: #### M MRIMMU #### [facility] [address] [place] [address] Dr. Sincere Wood FREE T3on 10-26-2022 FREE T3 1.72 pg/mlL Critically low 2.18-3.98 [facility] Comment on above: Performed By: #### E STRADI #### [facility] [address] [place] [address] Dr. Sincere Wood FREE T4on 01-24-2023 Free T4 [Mass/Vol] 1.62 ng/dL Critically high 0.76-1.46 [facility] Comment on above: Performed By: #### F T4 #### [facility] [address] [place] [address] Dr. Sincere Wood TSHon 10-26-2022 TSH 3.966 uIU/mL Critically high 0.358-3.740 [facility] Comment on above: Performed By: #### E STRADI #### [facility] [address] [address] [address] Sincere Wood ESTRADIOLon 09-23-2022 Estradiol 10.5 pg/mL Normal [facility] Comment on above: Result Comment: Adul t Female: Follicular phase 12.5 - 166.0 Ovulation phase 85.8 - 498.0 Luteal phase 43.8 - 211.0 Postmenopausal <6.0 - 54.7 1st trimester 215.0 - >4300.0 Ana ECLIA methodology Performed By: #### E STRADI #### [facility] [address] [place] [address] Dr. Sincere Wood FSHon 09-23-2022 FSH 56.5 mIU/mL Normal [facility] Comment on above: Result Comment: Adul t Female: Follicular phase 3.5 - 12.5 Ovulation phase 4.7 - 21.5 Luteal phase 1.7 - 7.7 Postmenopausal 25.8 - 134.8 Performed By: #### E STRADI #### [facility] [address] [place] [address] Dr. Sincere Wood TESTOSTERONE, TOTALon 2021 Testosterone [Mass/Vol] 20 ng/dL Normal 4-50 [facility] Comment on above: Performed By: #### E STRADI #### [facility] [address] [place] [address] Dr. Sincere Wood CBC AUTO DIFFon 09-22-2022 BASO # 0.0 103/ul Normal 0.0-0.1 [facility] Comment on above: Performed By: #### C BC #### [facility] [address] [place] [address] Dr. Sincere Wood Basophils/100 WBC (Bld) 0.5 % Normal 0.2-2.0 [facility] Comment on above: Performed By: #### C BC #### [facility] [address] [place] [address] Dr. Sincere Wood EO # 0.2 103/ul Normal 0.0-0.7 [facility] Comment on above: Performed By: #### C BC #### [facility] [address] [place] [address] Dr. Sincere Wood Eosinophils/100 WBC (Bld) 3.4 % Normal 0.9-7.0 [facility] Comment on above: Performed By: #### C BC #### [facility] [address] [place] [address] Dr. Sincere Wood Erythrocyte distribution width (RBC) [Ratio] 12.3 % Normal 11.0-15.0 [facility] Comment on above: Performed By: #### C BC #### [facility] [address] [place] [address] Dr. Sincere Wood Hematocrit (Bld) [Volume fraction] 36.8 % Normal 36.0-48.0 [facility] Comment on above: Performed By: #### C BC #### [facility] [address] [place] [address] Dr. Sincere Wood Hemoglobin (Bld) [Mass/Vol] 12.3 g/dL Normal 12.0-16.0 [facility] Comment on above: Performed By: #### C BC #### [facility] [address] [place] [address] Dr. Sincere Wood IG # 0.02 10e3/ul Normal 0.00-0.03 [facility] Comment on above: Performed By: #### C BC #### [facility] [address] [place] [address] Dr. Sincere Wood IG % 0.4 % Normal 0.0-0.5 [facility] Comment on above: Performed By: #### C BC #### [facility] [address] [place] [address] Dr. Sincere Wood LYMPH # 2.2 103/ul Normal 1.2-3.8 [facility] Comment on above: Performed By: #### C BC #### [facility] [address] [place] [address] Dr. Sincere Wood Lymphocytes/100 WBC (Bld) 38.4 % Normal 20.5-60.0 [facility] Comment on above: Performed By: #### C BC #### [facility] [address] [place] [address] Dr. Sincere Wood MANUAL DIFF REQ NO Normal [facility] Comment on above: Performed By: #### C BC #### [facility] [address] [place] [address] Dr. Sincere Wood MCH (RBC) [Entitic mass] 29.6 pg Normal 26.7-34.0 [facility] Comment on above: Performed By: #### C BC #### [facility] [address] [place] [address] Dr. Sincere Wood MCHC (RBC) [Mass/Vol] 33.4 g/dL Normal 29.9-35.2 [facility] Comment on above: Performed By: #### C BC #### [facility] [address] [place] [address] Dr. Sincere Wood MCV (RBC) [Entitic vol] 88.7 fL Normal 81.0-99.0 [facility] Comment on above: Performed By: #### C BC #### [facility] [address] [place] [address] Dr. Sincere Wood MONO # 0.5 103/ul Normal 0.3-0.8 [facility] Comment on above: Performed By: #### C BC #### [facility] [address] [place] [address] Dr. Sincere Wood Monocytes/100 WBC (Bld) 9.1 % Normal 1.7-12.0 [facility] Comment on above: Performed By: #### C BC #### [facility] [address] [place] [address] Dr. Sincere Wood NEUT # 2.7 103/ul Normal 1.4-6.5 [facility] Comment on above: Performed By: #### C BC #### [facility] [address] [address] [address] Sincere Wood Neutrophils/100 WBC (Bld) 48.2 % Normal 43.0-75.0 [facility] Comment on above: Performed By: #### C BC #### [facility] [address] [address] [address] Sincere Wood Platelet mean volume (Bld) [Entitic vol] 10.0 fL Normal 9.5-13.5 [facility] Comment on above: Performed By: #### C BC #### [facility] [address] [address] [address] Sincere Wood PLT 302 103/ul Normal 150-450 [facility] Comment on above: Performed By: #### C BC #### [facility] [address] [address] [address] Sincere Wood RBC 4.15 106/ul Critically low 4.20-5.40 [facility] Comment on above: Performed By: #### C BC #### [facility] [address] [address] [address] Sincere Wood WBC 5.6 103/ul Normal 4.0-11.0 [facility] Comment on above: Performed By: #### C BC #### [facility] [address] [place] [address] Dr. Sincere Wood PROF 14(COMP METB)on 022 Albumin [Mass/Vol] 3.6 g/dL Normal 3.4-5.0 [facility] Comment on above: Performed By: #### C MP #### [facility] [address] [address] [address] Sincere Wood Albumin/Globulin [Mass ratio] 0.9 {ratio} [facility] Comment on above: Performed By: #### C MP #### [facility] [address] [address] [address] Sincere Wood ALP [Catalytic activity/Vol] 153 U/L Critically high 46-116 [facility] Comment on above: Performed By: #### C MP #### [facility] [address] [address] [address] Sincere Wood ALT [Catalytic activity/Vol] 53 U/L Normal 14-59 [facility] Comment on above: Performed By: #### C MP #### [facility] [address] [address] [address] Sincere Wood Anion gap [Moles/Vol] 11.6 mmol/L Normal [facility] Comment on above: Performed By: #### C MP #### [facility] [address] [address] [address] Sincere Wood AST [Catalytic activity/Vol] 30 U/L Normal 15-37 [facility] Comment on above: Performed By: #### C MP #### [facility] [address] [address] [address] Sincere Wood Bilirubin [Mass/Vol] 0.3 mg/dL Normal 0.2-1.0 [facility] Comment on above: Performed By: #### C MP #### [facility] [address] [address] [address] Sincere Wood Calcium [Mass/Vol] 9.1 mg/dL Normal 8.5-10.1 [facility] Comment on above: Performed By: #### C MP #### [facility] [address] [address] [address] Sincere Wood Chloride [Moles/Vol] 102 mmol/L Normal 98-107 [facility] Comment on above: Performed By: #### C MP #### [facility] [address] [address] [address] Sincere Wood CO2 [Moles/Vol] 28.6 mmol/L Normal 21.0-32.0 [facility] Comment on above: Performed By: #### C MP #### [facility] [address] [address] [address] Sincere Wood Creatinine [Mass/Vol] 0.85 mg/dL Normal 0.55-1.02 [facility] Comment on above: Performed By: #### C MP #### [facility] [address] [address] [address] Sincere Wood EGFR-AF DJIBOUTIAN >60 Normal >=60 [facility] Comment on above: Performed By: #### C MP #### [facility] [address] [address] [address] Sincere Wood EGFR-NON AF DJIBOUTIAN >60 Normal >=60 [facility] Comment on above: Performed By: #### C MP #### [facility] [address] [address] [address] Sincere Wood Globulin (S) [Mass/Vol] 4.0 g/dL [facility] Comment on above: Performed By: #### C MP #### [facility] [address] [address] [address] Sincere Wood Glucose [Mass/Vol] 89 mg/dL Normal 74-[address] [facility] Comment on above: Performed By: #### C MP #### [facility] [address] [address] [address] Sincere Wood Potassium [Moles/Vol] 4.2 mmol/L Normal 3.5-5.1 [facility] Comment on above: Performed By: #### C MP #### [facility] [address] [address] [address] Sincere Wood Protein [Mass/Vol] 7.6 g/dL Normal 6.4-8.[address] [facility] Comment on above: Performed By: #### C MP #### [facility] [address] [address] [address] Sincere Wood Sodium [Moles/Vol] 138 mmol/L Normal 136-[address] [facility] Comment on above: Performed By: #### C MP #### [facility] [address] [address] [address] Sincere Wood Urea nitrogen [Mass/Vol] 16.0 mg/dL Normal 7.0-18.0 [facility] Comment on above: Performed By: #### C MP #### [facility] [address] [address] [address] Sincere Wood Urea nitrogen/Creatinine [Mass ratio] 18.8 mg/mg Normal [facility] Comment on above: Performed By: #### C MP #### [facility] [address] [place] [address] Dr. Sincere Wood PROF 14(COMP METB)on 022 Albumin [Mass/Vol] 3.6 g/dL Normal 3.4-5.0 [facility] Comment on above: Performed By: #### C MP #### [facility] [address] [place] [address] Dr. Sincere Wood Albumin/Globulin [Mass ratio] 0.9 {ratio} Normal [facility] Comment on above: Performed By: #### C MP #### [facility] [address] [place] [address] Dr. Sincere Wood ALP [Catalytic activity/Vol] 138 U/L Critically high 46-116 [facility] Comment on above: Performed By: #### C MP #### [facility] [address] [place] [address] Dr. Sincere Wood ALT [Catalytic activity/Vol] 46 U/L Normal 14-59 [facility] Comment on above: Performed By: #### C MP #### [facility] [address] [place] [address] Dr. Sincere Wood Anion gap [Moles/Vol] 13.4 mmol/L Normal [facility] Comment on above: Performed By: #### C MP #### [facility] [address] [place] [address] Dr. Sincere Wood AST [Catalytic activity/Vol] 35 U/L Normal 15-37 [facility] Comment on above: Performed By: #### C MP #### [facility] [address] [place] [address] Dr. Sincere Wood Bilirubin [Mass/Vol] 0.4 mg/dL Normal 0.2-1.0 [facility] Comment on above: Performed By: #### C MP #### [facility] [address] [place] [address] Dr. Sincere Wood Calcium [Mass/Vol] 9.1 mg/dL Normal 8.5-10.1 [facility] Comment on above: Performed By: #### C MP #### [facility] [address] [address] [address] Sincere Wood Chloride [Moles/Vol] 105 mmol/L Normal 98-107 [facility] Comment on above: Performed By: #### C MP #### [facility] [address] [address] [address] Sincere Wood CO2 [Moles/Vol] 26.2 mmol/L Normal 21.0-32.0 [facility] Comment on above: Performed By: #### C MP #### [facility] [address] [place] [address] Dr. Sincere Wood Creatinine [Mass/Vol] 0.76 mg/dL Normal 0.55-1.02 [facility] Comment on above: Performed By: #### C MP #### [facility] [address] [place] [address] Dr. Sincere Wood EGFR-AF DJIBOUTIAN >60 Normal >=60 [facility] Comment on above: Performed By: #### C MP #### [facility] [address] [place] [address] Dr. Sincere Wood EGFR-NON AF DJIBOUTIAN >60 Normal >=60 [facility] Comment on above: Performed By: #### C MP #### [facility] [address] [place] [address] Dr. Sincere Wood Globulin (S) [Mass/Vol] 4.0 g/dL Normal [facility] Comment on above: Performed By: #### C MP #### [facility] [address] [place] [address] Dr. Sincere Wood Glucose [Mass/Vol] 103 mg/dL Normal 74-[address] [facility] Comment on above: Performed By: #### C MP #### [facility] [address] [place] [address] Dr. Sincere Wood Potassium [Moles/Vol] 4.6 mmol/L Normal 3.5-5.1 [facility] Comment on above: Performed By: #### C MP #### [facility] [address] [place], [place] [address] Dr. Sincere Wood Protein [Mass/Vol] 7.6 g/dL Normal 6.4-8.2 [facility] Comment on above: Performed By: #### C MP #### [facility] [address] [place], [place] [address] Dr. Sincere Wood Sodium [Moles/Vol] 140 mmol/L Normal 136-[address] [facility] Comment on above: Performed By: #### C MP #### [facility] [address] [address] [address] Sincere Wood Urea nitrogen [Mass/Vol] 21.0 mg/dL Critically high 7.0-18.0 [facility] Comment on above: Performed By: #### C MP #### [facility] [address] [address] [address] Sincere Wood Urea nitrogen/Creatinine [Mass ratio] 27.6 mg/mg Normal [facility] Comment on above: Performed By: #### C MP #### [facility] [address] [place], [place] [address] Dr. Sincere Wood SCREENING MAMMOGRAM W/PRINCE, BILATERAL*on 03-29-2022 SCREENING MAMMOGRAM W/PRINCE, BILATERAL* CLINICAL HISTORY: Screening Mammogram COMPARISON: Priors from 2020, 2019, 2018, 2017 TECHNIQUE: 2D and 3D mammogram imaging of both breasts was performed. RESULT: DENSITY: There are scattered areas of fibroglandular density. There is no suspicious mass, asymmetry, architectural distortion, or calcification. No significant change since the prior mammograms. IMPRESSION: BIRADS 1 : NEGATIVE, NORMAL INTERVAL FOLLOW UP FOLLOW-UP: 12 months DENSITY: Scattered MAMMOGRAPHY IS VERY IMPORTANT TO YOUR HEALTH. THE CURRENT DJIB[place] [employer] OF [employer] AND [employer] GUIDELINES RECOMMENDS ANNUAL MAMMOGRAPHY BEGINNING AT AGE 41 THIS FACILITY USES A REMINDER SYSTEM TO ENSURE ALL PATIENTS RECEIVE REMINDER NOTIFICATIONS AT THE APPROPRIATE TIME BASED ON THE RECOMMENDATIONS OF THIS EXAM. Board Certified Radiologist. Accredited by the ACR and FDA. Report reported and signed by Davian Lewis on 03/29/2022 1139 Normal [facility] CBC AUTO DIFFon 02-18-2022 BASO # 0.0 103/ul Normal 0.0-0.1 [facility] Comment on above: Performed By: #### C BC #### [facility] [address] [address] [address] Sincere Wood Basophils/100 WBC (Bld) 0.7 % Normal 0.2-2.0 [facility] Comment on above: Performed By: #### C BC #### [facility] [address] [address] [address] Sincere Wood EO # 0.2 103/ul Normal 0.0-0.7 [facility] Comment on above: Performed By: #### C BC #### [facility] [address] [place] [address] Dr. Sincere Wood Eosinophils/100 WBC (Bld) 3.1 % Normal 0.9-7.0 [facility] Comment on above: Performed By: #### C BC #### [facility] [address] [place] [address] Dr. Sincere Wood Erythrocyte distribution width (RBC) [Ratio] 13.0 % Normal 11.0-15.0 [facility] Comment on above: Performed By: #### C BC #### [facility] [address] [place] [address] Dr. Sincere Wood Hematocrit (Bld) [Volume fraction] 38.8 % Normal 36.0-48.0 [facility] Comment on above: Performed By: #### C BC #### [facility] [address] [place] [address] Dr. Sincere Wood Hemoglobin (Bld) [Mass/Vol] 12.2 g/dL Normal 12.0-16.0 [facility] Comment on above: Performed By: #### C BC #### [facility] [address] [place] [address] Dr. Sincere Wood IG # 0.03 10e3/ul Normal 0.00-0.03 [facility] Comment on above: Performed By: #### C BC #### [facility] [address] [place] [address] Dr. Sincere Wood IG % 0.5 % Normal 0.0-0.5 [facility] Comment on above: Performed By: #### C BC #### [facility] [address] [place] [address] Dr. Sincere Wood LYMPH # 1.9 103/ul Normal 1.2-3.8 [facility] Comment on above: Performed By: #### C BC #### [facility] [address] [place] [address] Dr. Sincere Wood Lymphocytes/100 WBC (Bld) 34.4 % Normal 20.5-60.0 [facility] Comment on above: Performed By: #### C BC #### [facility] [address] [place] [address] Dr. Sincere Wood MANUAL DIFF REQ NO Normal [facility] Comment on above: Performed By: #### C BC #### [facility] [address] [place] [address] Dr. Sincere Wood MCH (RBC) [Entitic mass] 30.1 pg Normal 26.7-34.0 [facility] Comment on above: Performed By: #### C BC #### [facility] [address] [place] [address] Dr. Sincere Wood MCHC (RBC) [Mass/Vol] 31.4 g/dL Normal 29.9-35.2 [facility] Comment on above: Performed By: #### C BC #### [facility] [address] [place] [address] Dr. Sincere Wood MCV (RBC) [Entitic vol] 95.8 fL Normal 81.0-99.0 [facility] Comment on above: Performed By: #### C BC #### [facility] [address] [place] [address] Dr. Sincere Wood MONO # 0.5 103/ul Normal 0.3-0.8 [facility] Comment on above: Performed By: #### C BC #### [facility] [address] [place] [address] Dr. Sincere Wood Monocytes/100 WBC (Bld) 8.8 % Normal 1.7-12.0 [facility] Comment on above: Performed By: #### C BC #### [facility] [address] [address] [address] Sincere Wood NEUT # 2.9 103/ul Normal 1.4-6.5 [facility] Comment on above: Performed By: #### C BC #### [facility] [address] [address] [address] Sincere Wood Neutrophils/100 WBC (Bld) 52.5 % Normal 43.0-75.0 [facility] Comment on above: Performed By: #### C BC #### [facility] [address] [address] [address] Sincere Wood Platelet mean volume (Bld) [Entitic vol] 10.8 fL Normal 9.5-13.5 [facility] Comment on above: Performed By: #### C BC #### [facility] [address] [place] [address] Dr. Sincere Wood PLT 289 103/ul Normal 150-450 [facility] Comment on above: Performed By: #### C BC #### [facility] [address] [place] [address] Dr. Sincere Wood RBC 4.05 106/ul Critically low 4.20-5.40 [facility] Comment on above: Performed By: #### C BC #### [facility] [address] [place] [address] Dr. Sincere Wood WBC 5.6 103/ul Normal 4.0-11.0 [facility] Comment on above: Performed By: #### C BC #### [facility] [address] [place] [address] Dr. Sincere Wood GLYCOHEMOGLOBIN A1Con 2021 ADA RECOMMENDATION SEE BELOW Normal [facility] Comment on above: Result Comment: ADA RECOMMENDED LIMIT 4.0 - 6.0 ADA THERAPEUTIC TARGET < 7.0 ACTION SUGGESTED > 7.0 Performed By: #### A 1C #### [facility] [address] [place] [address] Dr. Sincere Wood Glucose [Mass/Vol] 117 mg/dL Normal [facility] Comment on above: Performed By: #### A 1C #### [facility] [address] [place] [address] Dr. Sincere Wood HbA1c (Bld) [Mass fraction] 5.7 % Normal 4.5-6.2 [facility] Comment on above: Performed By: #### A 1C #### [facility] [address] [place] [address] Dr. Sincere Wood PROF 14(COMP METB)on 022 Albumin [Mass/Vol] 3.4 g/dL Normal 3.4-5.0 [facility] Comment on above: Performed By: #### C MP #### [facility] [address] [place] [address] Dr. Sincere Wood Albumin/Globulin [Mass ratio] 0.8 {ratio} Normal [facility] Comment on above: Performed By: #### C MP #### [facility] [address] [place] [address] Dr. Sincere Wood ALP [Catalytic activity/Vol] 150 U/L Critically high 46-116 [facility] Comment on above: Performed By: #### C MP #### [facility] [address] [place] [address] Dr. Sincere Wood ALT [Catalytic activity/Vol] 85 U/L Critically high 14-59 [facility] Comment on above: Performed By: #### C MP #### [facility] [address] [place] [address] Dr. Sincere Wood Anion gap [Moles/Vol] 11.4 mmol/L Normal [facility] Comment on above: Performed By: #### C MP #### [facility] [address] [place] [address] Dr. Sincere Wood AST [Catalytic activity/Vol] 46 U/L Critically high 15-37 [facility] Comment on above: Performed By: #### C MP #### [facility] [address] [place] [address] Dr. Sincere Wood Bilirubin [Mass/Vol] 0.3 mg/dL Normal 0.2-1.0 [facility] Comment on above: Performed By: #### C MP #### [facility] [address] [address] [address] Sincere Wood Calcium [Mass/Vol] 8.9 mg/dL Normal 8.5-10.[address] [facility] Comment on above: Performed By: #### C MP #### [facility] [address] [address] [address] Sincere Wood Chloride [Moles/Vol] 104 mmol/L Normal 98-107 [facility] Comment on above: Performed By: #### C MP #### [facility] [address] [address] [address] Sincere Wood CO2 [Moles/Vol] 28.6 mmol/L Normal 21.0-32.0 [facility] Comment on above: Performed By: #### C MP #### [facility] [address] [place] [address] Dr. Sincere Wood Creatinine [Mass/Vol] 0.69 mg/dL Normal 0.55-1.02 [facility] Comment on above: Performed By: #### C MP #### [facility] [address] [place] [address] Dr. Sincere Wood EGFR-AF DJIBOUTIAN >60 Normal >=60 [facility] Comment on above: Performed By: #### C MP #### [facility] [address] [place] [address] Dr. Sincere Wood EGFR-NON AF DJIBOUTIAN >60 Normal >=60 [facility] Comment on above: Performed By: #### C MP #### [facility] [address] [place] [address] Dr. Sincere Wood Globulin (S) [Mass/Vol] 4.1 g/dL Normal [facility] Comment on above: Performed By: #### C MP #### [facility] [address] [place] [address] Dr. Sincere Wood Glucose [Mass/Vol] 96 mg/dL Normal 74-[address] [facility] Comment on above: Performed By: #### C MP #### [facility] [address] [place] [address] Dr. Sincere Wood Potassium [Moles/Vol] 4.0 mmol/L Normal 3.5-5.1 [facility] Comment on above: Performed By: #### C MP #### [facility] [address] [address] [address] Sincere Wood Protein [Mass/Vol] 7.5 g/dL Normal 6.4-8.2 [facility] Comment on above: Performed By: #### C MP #### [facility] [address] [address] [address] Sincere Wood Sodium [Moles/Vol] 140 mmol/L Normal 136-145 [facility] Comment on above: Performed By: #### C MP #### [facility] [address] [address] [address] Sincere Wood Urea nitrogen [Mass/Vol] 19.0 mg/dL Critically high 7.0-18.0 [facility] Comment on above: Performed By: #### C MP #### [facility] [address] [address] [address] Sincere Wood Urea nitrogen/Creatinine [Mass ratio] 27.5 mg/mg Normal [facility] Comment on above: Performed By: #### C MP #### [facility] [address] [address] [address] Sincere Wood Free T3on 11-09-2021 FT3 2.72 pg/mL Normal 2.00-4.40 [facility] Comment on above: Performed By: #### F T4, TSH, VITD, FT3 #### [facility] [address], [place] [id number] Free T4on 11-09-2021 Free T4 [Mass/Vol] 1.50 ng/dL Normal 0.80-1.80 [facility] Comment on above: Performed By: #### F T4, TSH, VITD, FT3 #### [facility] [address], [place] [id number] TSHon 11-09-2021 TSH 0.298 uIU/mL Low 0.400-4.500 [facility] Comment on above: Performed By: #### F T4, TSH, VITD, FT3 #### [facility] [address] [place], [place] [id number] Vitamin D 25-OHon 11-09-2021 VIT D 25 OH 53 ng/ml Normal >29 [facility] Comment on above: Result Comment: Bernie min D Status Deficiency <20 ng/mL Insufficiency 20-29 ng/mL Optimal 30-100 ng/mL Possible Toxicity >=150 ng/mL Performed By: #### F T4, TSH, VITD, FT3 #### [facility] [address] [place], [place] [id number] Vital Signs Date Time Vital Sign Value Performing Clinician Facility 02-20-2024 11:59-0400 Body mass index (BMI) [Ratio] 34.6 kg/m2 Minoo Hernandez MD Work Phone: [facility] 02-20-2024 11:59-0400 Body temperature 97 [degF] Minoo Hernandez MD Work Phone: [facility] 02-20-2024 11:59-0400 Body weight 85.8 kg Minoo Hernandez MD Work Phone: [facility] 02-20-2024 11:59-0400 Diastolic blood pressure 72 mm[Hg] Minoo Hernandez MD Work Phone: [facility] 02-20-2024 11:59-0400 Heart rate 73 /min Minoo Hernandez MD Work Phone: [facility] 02-20-2024 11:59-0400 Respiratory rate 16 /min Minoo Hernandez MD Work Phone: [facility] 02-20-2024 11:59-0400 SaO2% (BldA) [Mass fraction] 97 % Minoo Hernandez MD Work Phone: [facility] 02-20-2024 11:59-0400 Systolic blood pressure 110 mm[Hg] Minoo Hernandez MD Work Phone: [facility] 01-19-2024 11:16-0400 Body temperature 97.3 [degF] Minoo Hernandez MD Work Phone: [facility] 01-19-2024 11:16-0400 Diastolic blood pressure 62 mm[Hg] Minoo Hernandez MD Work Phone: [facility] 01-19-2024 11:16-0400 Heart rate 52 /min Minoo Hernandez MD Work Phone: [facility] 01-19-2024 11:16-0400 Respiratory rate 16 /min Minoo Hernandez MD Work Phone: [facility] 01-19-2024 11:16-0400 Systolic blood pressure 115 mm[Hg] Minoo Hernandez MD Work Phone: [facility] 01-19-2024 11:13-0400 SaO2% (BldA) [Mass fraction] 98 % Minoo Hernandez MD Work Phone: [facility] 01-19-2024 06:25-0400 Body mass index (BMI) [Ratio] 34.68 kg/m2 Minoo Hernandez MD Work Phone: [facility] 01-19-2024 06:25-0400 Body weight 86 kg Minoo Hernandez MD Work Phone: [facility] 01-18-2024 10:54-0400 Blood Pressure Location Haider Sarmini [facility] 01-18-2024 10:54-0400 Diastolic blood pressure 70 mm[Hg] Haider Sarmini [facility] 01-18-2024 10:54-0400 Heart rate 72 /min Haider Sarmini [facility] 01-18-2024 10:54-0400 Respiratory rate 16 /min Haider Sarmini [facility] 01-18-2024 10:54-0400 Systolic blood pressure 106 mm[Hg] Haider Sarmini [facility] 12-06-2023 11:07-0500 Body height 157.5 cm Kely Crian SENIOR STACK ENGINEER-CHOPPER OPERATOR Work Phone: [phone](593)[phone] [place] [address] 12-06-2023 11:07-0500 Body mass index (BMI) [Ratio] 33.65 kg/m2 Kely Crain SENIOR STACK ENGINEER-CHOPPER OPERATOR Work Phone: 9(496)346-055265 [place] [address] 12-06-2023 11:07-0500 Body weight 83.46 kg Kely Crain SENIOR STACK ENGINEER-CHOPPER OPERATOR Work Phone: 3(340)[phone] [place] [address] 12-06-2023 11:07-0500 Diastolic blood pressure 75 mm[Hg] Kely Crain SENIOR STACK ENGINEER-CHOPPER OPERATOR Work Phone: 8(488)[phone] [place] [address] 12-06-2023 11:07-0500 Heart rate 74 /min Kely Crain SENIOR STACK ENGINEER-CHOPPER OPERATOR Work Phone: 1(320)[phone] [place] [address] 12-06-2023 11:07-0500 Respiratory rate 16 /min Kely Crain SENIOR STACK ENGINEER-CHOPPER OPERATOR Work Phone: 6(883)[phone] [place] [address] 12-06-2023 11:07-0500 Systolic blood pressure 127 mm[Hg] Kely Crain SENIOR STACK ENGINEER-CHOPPER OPERATOR Work Phone: 0(089)[phone] [place] [address] 11-14-2023 10:48-0500 Blood Pressure Location Haider Sarmini [facility] 11-14-2023 10:48-0500 Diastolic blood pressure 78 mm[Hg] Haider Sarmini [facility] 11-14-2023 10:48-0500 Heart rate 80 /min Haider Sarmini [facility] 11-14-2023 10:48-0500 Respiratory rate 18 /min Vitaly Stauffer [facility] 11-14-2023 10:48-0500 Systolic blood pressure 120 mm[Hg] Vitaly Freemanmini [facility] 11-07-2023 15:55-0500 Body mass index (BMI) [Ratio] 34.44 kg/m2 Minoo Hernandez MD Work Phone: [facility] 11-07-2023 15:55-0500 Body temperature 97.3 [degF] Minoo Hernandez MD Work Phone: [facility] 11-07-2023 15:55-0500 Body weight 85.4 kg Minoo Hernandez MD Work Phone: [facility] 11-07-2023 15:55-0500 Diastolic blood pressure 73 mm[Hg] Minoo Hernandez MD Work Phone: [facility] 11-07-2023 15:55-0500 Heart rate 82 /min Minoo Hernandez MD Work Phone: [facility] 11-07-2023 15:55-0500 Respiratory rate 14 /min Minoo Hernandez MD Work Phone: [facility] 11-07-2023 15:55-0500 Systolic blood pressure 106 mm[Hg] Minoo Hernandez MD Work Phone: [facility] 10-26-2023 12:57-0500 Body height 157.5 cm Kely Crain APRN-CHOPPER OPERATOR Work Phone: [facility] 10-26-2023 12:57-0500 Body mass index (BMI) [Ratio] 32.92 kg/m2 Kely Crain APRN-CHOPPER OPERATOR Work Phone: [facility] 10-26-2023 12:57-0500 Body weight 81.65 kg Kely Emrick SENIOR STACK ENGINEER-CHOPPER OPERATOR Work Phone: [facility] 10-26-2023 12:57-0500 Diastolic blood pressure 70 mm[Hg] Kely Crain SENIOR STACK ENGINEER-CHOPPER OPERATOR Work Phone: [facility] 10-26-2023 12:57-0500 Heart rate 76 /min Kely Crain SENIOR STACK ENGINEER-CHOPPER OPERATOR Work Phone: [facility] 10-26-2023 12:57-0500 Respiratory rate 16 /min Kely Crain SENIOR STACK ENGINEER-CHOPPER OPERATOR Work Phone: [facility] 10-26-2023 12:57-0500 Systolic blood pressure 96 mm[Hg] Kely Crain SENIOR STACK ENGINEER-CHOPPER OPERATOR Work Phone: [facility] 10-06-2023 14:50-0500 Diastolic blood pressure 67 mm[Hg] Vance Baires MD Work Phone: [facility] 10-06-2023 14:50-0500 Heart rate 81 /min Vance Baires MD Work Phone: [facility] 10-06-2023 14:50-0500 Respiratory rate 17 /min Vance Baires MD Work Phone: [facility] 10-06-2023 14:50-0500 SaO2% (BldA) [Mass fraction] 97 % Vance Baires MD Work Phone: [facility] 10-06-2023 14:50-0500 Systolic blood pressure 105 mm[Hg] Vance Baires MD Work Phone: [facility] 10-06-2023 14:20-0500 Body temperature 96.69 [degF] Vance Baires MD Work Phone: [facility] 10-06-2023 12:12-0500 Body height 160 cm Vance Baires MD Work Phone: [facility] 10-06-2023 12:12-0500 Body mass index (BMI) [Ratio] 31.53 kg/m2 Vance Baires MD Work Phone: [facility] 10-06-2023 12:12-0500 Body weight 80.74 kg Vance Baires MD Work Phone: [facility] 09-21-2023 10:36-0500 Body mass index (BMI) [Ratio] 32.65 kg/m2 Hermes Montelongo SENIOR STACK ENGINEER-CHOPPER OPERATOR Work Phone: [facility] 09-21-2023 10:36-0500 Body temperature 98.1 [degF] Hermes Montelongo APRN-CHOPPER OPERATOR Work Phone: [facility] 09-21-2023 10:36-0500 Body weight 83.6 kg Hermes Montelongo SENIOR STACK ENGINEER-CHOPPER OPERATOR Work Phone: [facility] 09-21-2023 10:36-0500 Diastolic blood pressure 69 mm[Hg] Hermes Montelongo SENIOR STACK ENGINEER-CHOPPER OPERATOR Work Phone: [facility] 09-21-2023 10:36-0500 Heart rate 85 /min Hermes Montelongo APRN-CHOPPER OPERATOR Work Phone: [facility] 09-21-2023 10:36-0500 Respiratory rate 16 /min Hermes Montelongo SENIOR STACK ENGINEER-CHOPPER OPERATOR Work Phone: [facility] 09-21-2023 10:36-0500 SaO2% (BldA) [Mass fraction] 98 % Hermes Montelongo SENIOR STACK ENGINEER-CHOPPER OPERATOR Work Phone: [facility] 09-21-2023 10:36-0500 Systolic blood pressure 101 mm[Hg] Hermes Montelongo SENIOR STACK ENGINEER-CHOPPER OPERATOR Work Phone: [facility] 05-12-2023 13:45-0400 Blood Pressure Location [facility] 05-12-2023 13:45-0400 Body temperature 97.88 [degF] Reeves SALAM [facility] 05-12-2023 13:45-0400 Diastolic blood pressure 75 mm[Hg] Reeves SALAM [facility] 05-12-2023 13:45-0400 Heart rate 69 /min Reeves SALAM [facility] 05-12-2023 13:45-0400 Respiratory rate 16 /min Reeves SALAM [facility] 05-12-2023 13:45-0400 Systolic blood pressure 111 mm[Hg] Reeves SALAM [facility] 01-12-2023 10:45-0400 Blood Pressure Location Reeves SALAM [facility] 01-12-2023 10:45-0400 Diastolic blood pressure 86 mm[Hg] Reeves SALAM [facility] 01-12-2023 10:45-0400 Heart rate 75 /min Reeves SALAM [facility] 01-12-2023 10:45-0400 Respiratory rate 16 /min Reeves SALAM [facility] 01-12-2023 10:45-0400 Systolic blood pressure 124 mm[Hg] Reeves SALAM [facility] 05-13-2022 13:18-0400 Blood Pressure Location Reeves SALAM [facility] 05-13-2022 13:18-0400 Diastolic blood pressure 76 mm[Hg] Reeves SALAM [facility] 05-13-2022 13:18-0400 Heart rate 68 /min Reeves SALAM [facility] 05-13-2022 13:18-0400 Respiratory rate 16 /min Reeves SALAM [facility] 05-13-2022 13:18-0400 Systolic blood pressure 110 mm[Hg] Reeves SALAM [facility] Encounters Encounter Date Encounter Type Care Provider Facility Start: 04-18-2024 ambulatory Vitaly Stauffer Facility:[facility] Start: 02-28-2024 End: 02-28-2024 ambulatory ANGELY KENT Not Available Start: 02-24-2024 End: 02-25-2024 [facility] Start: 02-24-2024 End: 02-25-2024 ambulatory [facility] Start: 02-24-2024 End: 02-24-2024 Office outpatient new 45 minutes Yogesh Gonzalez MD Work Phone: [facility] [place] Comment on above: Hypothyroidism, unsp ecified type (Primary Dx); Vitamin D deficiency Start: 02-20-2024 End: 02-20-2024 ambulatory MINOO Ruiz [facility] Start: 02-20-2024 End: 02-20-2024 Postop follow up visit related to original px Minoo Hernandez MD Work Phone: [facility] Comment on above: BRCA positive (Prima ry Dx) Start: 01-19-2024 End: 01-19-2024 ambulatory MINOO HERNANDEZ [facility] Start: 01-19-2024 End: 01-19-2024 Subsequent hospital visit by physician Minoo Hernandez MD Work Phone: [facility] [place] Comment on above: Postoperative pain ( Primary Dx); BRCA gene mutation positive Start: 01-18-2024 End: 01-19-2024 ambulatory [facility] Start: 01-18-2024 End: 01-18-2024 Patient encounter procedure Vitaly Freemanmini [facility] Start: 01-16-2024 End: 01-17-2024 ambulatory [facility] Start: 01-16-2024 End: 01-17-2024 Encounter for preprocedural laboratory examination [facility] Start: 12-21-2023 End: 12-22-2023 ambulatory KELY Becerra [facility] Start: 12-21-2023 End: 12-21-2023 ambulatory KELY Becerra [facility] Start: 12-21-2023 End: 12-21-2023 Subsequent hospital visit by physician Troy Mri [facility] [place] [place] Comment on above: Abnormal MRI, breast ; Mass of lower outer quadrant of right breast Abnormal mammogram Start: 12-19-2023 End: 12-20-2023 ambulatory MINOO [facility] Start: 12-19-2023 End: 12-20-2023 Encounter for other preprocedural examination MINOO [facility] Start: 12-19-2023 End: 12-20-2023 Encounter for preprocedural cardiovascular examination MINOO Ruiz [facility] Start: 12-19-2023 End: 12-20-2023 Encounter for preprocedural respiratory examination MINOO Ruiz [facility] Start: 12-06-2023 End: 12-07-2023 ambulatory KELY Becerra [facility] Start: 12-06-2023 End: 12-06-2023 Office outpatient visit 25 minutes Kely Crain SENIOR STACK ENGINEER-CHOPPER OPERATOR Work Phone: [facility] Comment on above: Abnormal MRI, breast (Primary Dx); Mass of lower outer quadrant of right breast; Situational anxiety Start: 12-06-2023 End: 12-06-2023 Subsequent hospital visit by physician Troy Mammo 2 [facility] [place] [place] Comment on above: Abnormal findings on diagnostic imaging of breast Abnormal MRI Start: 11-24-2023 End: 11-25-2023 ambulatory KELY Becerra [facility] Start: 11-24-2023 End: 11-24-2023 Subsequent hospital visit by physician Troy Mri [facility] [place] [place] Comment on above: BRCA2 gene mutation positive; Breast cancer screening, high risk patient Start: 11-21-2023 End: 11-22-2023 ambulatory KELY Becerra [facility] Start: 11-21-2023 End: 11-21-2023 Subsequent hospital visit by physician Rad External Film EF RAD EXTERNAL [employer]M [employer]UAL Comment on above: Arrived Start: 11-14-2023 End: 11-15-2023 ambulatory SHAIKH BRANT Facility:[facility] Start: 11-14-2023 End: 11-14-2023 Patient [facility] Start: 11-07-2023 End: 11-07-2023 ambulatory MINOO HERNANDEZ [facility] Start: 11-07-2023 End: 11-07-2023 Office outpatient visit 25 minutes Minoo Hernandez MD Work Phone: [facility] Comment on above: BRCA gene mutation p ositive (Primary Dx); BRCA positive Start: 10-26-2023 End: 10-26-2023 ambulatory KELY Becerra [facility] Start: 10-26-2023 End: 10-26-2023 Office outpatient new 45 minutes Kely Crain SENIOR STACK ENGINEER-CHOPPER OPERATOR Work Phone: [facility] Comment on above: Breast cancer screen ing, high risk patient (Primary Dx); BRCA2 gene mutation positive Start: 10-06-2023 End: 10-07-2023 ambulatory [facility] Start: 10-06-2023 End: 10-06-2023 Subsequent hospital visit by physician Vance Baires MD Work Phone: [facility] Comment on above: BRCA positive; Primary biliary cholangitis (CMS/HCC); Familial malignant neoplasm of pancreas (CMS/HCC) Start: 10-05-2023 End: 10-06-2023 ambulatory [facility] Start: 10-05-2023 End: 10-05-2023 Phys/qhp telephone evaluation 21-30 min Vance Baires MD Work Phone: [facility] [place] Comment on above: BRCA positive (Prima ry Dx); Primary biliary cholangitis (CMS/HCC); Familial malignant neoplasm of pancreas (CMS/HCC) Start: 09-21-2023 End: 09-22-2023 ambulatory HERMES Moore [facility] Start: 09-21-2023 End: 09-21-2023 Office outpatient new 30 minutes Hermes Alvaison SENIOR STACK ENGINEER-CHOPPER OPERATOR Work Phone: [facility] Comment on above: BRCA positive (Prima ry Dx) Start: 09-08-2023 ambulatory LYNDON Torie [facility] Start: 09-06-2023 End: 09-06-2023 ambulatory [facility] Start: 08-09-2023 End: 08-10-2023 ambulatory [facility] Start: 05-12-2023 End: 05-13-2023 [facility] Start: 05-12-2023 End: 05-12-2023 [facility] Start: 05-05-2023 Telephone encounter Yas Cardenas MD Work Phone: Gastroenterology Comment on above: Results Start: 04-20-2023 End: 04-20-2023 ambulatory SHAIKH BRANT Facility[facility] Start: 04-20-2023 End: 04-20-2023 Patient encounter procedure YAS MEZA [facility] Start: 2023 Telephone encounter Yas Cardenas MD Work Phone: Gastroenterology Comment on above: Results Start: 04-06-2023 End: 04-06-2023 ambulatory Yas Meza MD Work Phone: Gastroenterology Comment on above: Fibroscan (ultrasoun d) Primary biliary chol angitis (HCC) (Primary Dx) Start: 04-06-2023 End: 04-06-2023 Telemedicine consultation with patient Yas Meza MD Work Phone: [facility] Start: 02-03-2023 End: 02-04-2023 ambulatory [facility] Start: 02-03-2023 End: 02-03-2023 Patient encounter procedure Reeves SALAM [facility] Start: 01-12-2023 End: 01-12-2023 [facility] Start: 01-04-2023 Telephone encounter Yas Cardenas MD Work Phone: Gastroenterology Comment on above: Orders Start: 01-01-2023 End: 01-02-2023 ambulatory REEVES ASHAM Facility: Start: 11-23-2022 End: 11-24-2022 ambulatory SHAIKH Nirali GUO Facility:[facility] Start: 10-26-2022 End: 10-27-2022 ambulatory SHAIKH Nirali GUO Facility:[facility] Start: 10-11-2022 End: 10-11-2022 ambulatory Yas Meza MD Work Phone: Gastroenterology Comment on above: Primary biliary chol angitis (HCC) (Primary Dx) Start: 10-11-2022 End: 10-11-2022 Telemedicine consultation with patient Yas Meza MD Work Phone: [facility] Start: 09-22-2022 End: 09-23-2022 ambulatory SHAIKH Nirali GUO Facility:[facility] Start: 05-13-2022 End: 05-13-2022 Patient encounter procedure Leandro BILL [facility] Start: 05-07-2022 End: 05-08-2022 ambulatory GRAVES H BRANT Facility:[facility] Start: 03-03-2022 End: 03-03-2022 ambulatory Yas Meza MD Work Phone: Gastroenterology Comment on above: Primary biliary chol angitis (HCC) Start: 03-03-2022 End: 03-03-2022 Telemedicine consultation with patient Yas Meza MD Work Phone: [facility] Start: 03-02-2022 Telephone [facility] Comment on above: Appointment Start: 02-18-2022 End: 02-19-2022 ambulatory SHAIKH Nirali GUO Facility: Procedures Date Procedure Procedure Detail Performing Clinician Start: 01-19-2024 DISCHARGE PATIENT MINOO HERNANDEZ Start: 01-19-2024 FOLLOW UP WITH PROVIDER MINOO HERNANDEZ Start: 01-19-2024 ADULT DISCHARGE DIET MINOO GRIDERHERNANDEZ Start: 01-19-2024 DISCHARGE ACTIVITY MINOO HERNANDEZ Start: 01-19-2024 NOTIFY PROVIDER (DO NOT PROMPT FOR PARAMETERS) MINOO GRIDERHERNANDEZ Start: 01-19-2024 PULSE OXIMETRY, CONTINUOUS MINOO GRIDERHERNANDEZ Start: 01-19-2024 SURGICAL PATHOLOGY EXAM MINOO HERNANDEZ Start: 01-19-2024 CYTOLOGY CONSULTATION (NON-GYNECOLOGIC) MINOO GRIDERHERNANDEZ Start: 01-19-2024 PULSE OXIMETRY, CONTINUOUS Vikram velazco MD Work Phone: Start: 01-16-2024 aPTT in Blood by Coagulation assay MINOO DE LOS SANTOS Start: 01-16-2024 CANCER ANTIGEN 19-9 MINOO HERNANDEZ Start: 01-16-2024 CBC W Auto Differential panel - Blood MINOO HERNANDEZ Start: 01-16-2024 Comprehensive metabolic 2000 panel - Serum or Plasma MINOO HERNANDEZ Start: 01-16-2024 PROTIME-INR MINOO HERNANDEZ Start: 01-16-2024 VITAMIN D 25-HYDROXY,TOTAL MINOO HERNANDEZ Start: 12-21-2023 BI BREAST BIOPSY CLIP IMAGING KELY GARCIA Start: 12-21-2023 BI MR BREAST VACUUM ASSISTED BIOPSY MIMI BERMUDEZARABELLA DANIKAKEVIN Start: 12-21-2023 SURGICAL PATHOLOGY EXAM KELY CRAIN Start: 12-21-2023 Diagnostic mammography computer-aided detcj uni Kely Mariam Crain SENIOR STACK ENGINEER-CHOPPER OPERATOR Work Phone: Start: 12-21-2023 Bx breast w/device 1st lesion magnetic res guid Kely Mariam Crain SENIOR STACK ENGINEER-CHOPPER OPERATOR Work Phone: Start: 12-19-2023 CBC panel - Blood by Automated count MINOO HERNANDEZ Start: 12-19-2023 COAGULATION SCREEN MINOO HERNANDEZ Start: 12-19-2023 Comprehensive metabolic 2000 panel - Serum or Plasma MINOO HERNANDEZ Start: 12-19-2023 TSH WITH REFLEX TO FREE T4 IF ABNORMAL MINOO HERNANDEZ Start: 12-19-2023 TYPE AND SCREEN MINOO HERNANDEZ Start: 12-19-2023 REQUEST FOR PRE-ADMISSION TESTING VISIT MINOO HERNANDEZ Start: 12-19-2023 Thyrotropin [Units/volume] in Serum or Plasma Stj Mri Start: 12-06-2023 BI US BREAST LIMITED RIGHT KELY GARNICAKathryn CK Start: 12-06-2023 BI BREAST BIOPSY CLIP IMAGING KELY GARCIA Start: 12-06-2023 Ultrasound elastography first target lesion Kely Mariam Crain SENIOR STACK ENGINEER-CHOPPER OPERATOR Work Phone: Start: 11-24-2023 BI MR BREAST BILATERAL WITH CONTRAST FULL PROTOCOL KELY CRAIN Start: 11-24-2023 Mri breast without&with contrast w/cad bilateral Kely Mariam Crain SENIOR STACK ENGINEER-CHOPPER OPERATOR Work Phone: Start: 11-21-2023 BI TRANSFER OF OUTSIDE FILMS MINOO AVILES NG Start: 11-21-2023 End: 11-21-2023 Study Interpretation of outside study Kely Crain SENIOR STACK ENGINEER-CHOPPER OPERATOR Work Phone: Start: 11-07-2023 CASE REQUEST OPERATING ROOM MINOO Perera Start: 10-26-2023 AMB REFERRAL TO HIGH RISK BREAST CANCER KELY CRAIN Start: 10-06-2023 ENDOSCOPIC ULTRASOUND (UPPER) MINOO RUDOLPH EMMANUEL Start: 10-06-2023 Esophagogastroduodenoscopy us scope w/adj strxrs Vance Baires MD Work Phone: Start: 08-09-2023 MISCELLANEOUS GENETICS TEST HERMES MILLER LLO Start: 03-30-2023 End: 03-30-2023 Mammography Yas Meza MD Work Phone: Start: 01-12-2023 Colonoscopy Stj Mri Start: 03-25-2021 End: 03-25-2021 Mammography Yas Meza MD Work Phone: Start: 12-29-2020 Colonoscopy Vance Baires MD Work Phone: Start: 12-29-2020 Colonoscopy Leandro BILL Start: 10-29-2020 Adult depression screening assessment Shwetha Pattersonacre Appendectomy Leandro BILL section Leandro BILL Tonsillectomy and adenoidectomy Leandro BILL Plan of Treatment Date Care Activity Detail Author Start: 01-12-2033 Screening for malign ant neoplasm of colon [facility] Start: 11-23-2032 DTaP/Tdap/Td Vaccine s (2 - Td or Tdap) DTaP/Tdap/Td Vaccines (2 - Td or Tdap) [facility] Start: 12-29-2030 Screening for malign ant neoplasm of colon [facility] Start: 2026 RSV patient s and/or patients aged 60+ years (1 - 1-dose 60+ series) RSV patients and/or patients aged 60+ years (1 - 1-dose 60+ series) [facility] Start: 03-26-2026 LIPID SCREEN LIPID SCREEN [facility] Start: 12-18-2024 Thyroid stimulating hormone measurement TSH Level [facility] Start: 06-03-2024 Influenza vaccination Influenz a Vaccine (Season Ended) [facility] Start: 05-14-2024 End: 05-14-2024 Patient encounter procedure 05/14/2024 11:20 AM EDT Office Visit [facility] [address] [place] [address] [place] [address] Department [place] [address] [facility] Start: 04-24-2024 End: 04-24-2024 Patient encounter procedure [facility] [place] Start: 04-02-2024 End: 12-24-2024 DBT Breast - bilateral BI mammo bilateral screening tomosynthesis Imaging Routine BRCA2 gene mutation positive Breast cancer screening, high risk patient Expected: 04/02/2024, Expires: 12/24/2024 [facility] Service Area Work Phone: Comment on above: Expected: 04/02/2024 , Expires: 12/24/2024 Start: 03-30-2024 Mammography MAMMOGRAM [facility] Start: 03-30-2024 Screening for malign ant neoplasm of breast Mammogram [facility] Start: 03-26-2024 DIABETES SCREEN DIABETES SCREEN [facility] Start: 02-24-2024 End: 02-24-2024 Patient encounter procedure 02/24/2024 11:10 AM EDT Office Visit [facility] [place] [address] [facility] [address] [place] [phone] [place] [address] Department [place] [address] [facility] Start: 02-20-2024 End: 02-20-2024 Patient encounter procedure 02/20/2024 12:00 PM EDT Office Visit [facility] [address] [facility] [address] [place] [phone] [place] [address] [place] [address] [facility] Start: 01-19-2024 End: 01-19-2024 Admission to same day surgery center 01/19/2024 7:15 AM EDT - 01/19/2024 10:20 AM EDT Surgery [facility] [place] [address] [place] [address] [place] [address] [place] [address] Laparoscopic Bilateral salping-oophorectomy [76129 (CPT )] [facility] [place] Comment on above: Laparoscopic Bilater al salping-oophorectomy [70738 (CPT )] Start: 01-19-2024 End: 01-19-2024 Laparoscopy w/rmvl adnexal structures Salpingo Oophorectomy Laparoscopy BRCA gene mutation positive 01/19/2024 7:15 AM EDT Virtual [facility] [place] Start: 01-19-2024 Subsequent hospital visit by physician 01/19/2024 5:45 AM EDT Hospital Encounter [facility] [place] [address] [place] [address] [place] [address] [place] [address] [facility] [place] Start: 12-29-2023 End: 12-29-2023 Admission to same day surgery center 12/29/2023 7:15 AM EDT - 12/29/2023 10:25 [place] [place] [address] [place] [phone] [place] [address] [place] [address] Laparoscopic Bilateral salping-oophorectomy [19723 (CPT )] [facility] [place] Comment on above: Laparoscopic Bilater al salping-oophorectomy [45619 (CPT )] Start: 12-29-2023 End: 12-29-2023 Laparoscopy w/rmvl adnexal structures Salpingo Oophorectomy Laparoscopy BRCA gene mutation positive 12/29/2023 7:15 AM EDT Virtual [facility] [place] Start: 12-29-2023 Subsequent hospital visit by physician 12/29/2023 5:45 AM EDT [place] [facility] [place] [address] [place] [address] [place] [address] [place] [address] [facility] [place] Start: 12-21-2023 End: 12-21-2023 Patient encounter procedure [facility] [place] [place] Start: 12-19-2023 End: 12-19-2023 Admission to establishment 12/19/2023 1:45 PM EDT Pre-Admission Testing [facility] [address] [place] [address] [facility] Start: 12-12-2023 End: 12-12-2023 Telemedicine consultation with patient 12/12/2023 2:00 PM EDT Telemedicine Clinical Support [facility] [address] [place] [address] [facility] Start: 12-06-2023 End: 02-04-2025 MG Breast Views BI MR breast vacuum assisted biopsy Imaging Routine Abnormal MRI, breast Mass of lower outer quadrant of right breast Expected: 12/06/2023, Expires: 02/04/2025 [facility] Service Area Work Phone: Comment on above: Expected: 12/06/2023 , Expires: 02/04/2025 Start: 12-06-2023 End: 12-06-2023 Patient encounter procedure 12/06/2023 1:45 PM EST Appointment [facility] [place] [place] [address] [place] [address] [facility] [place] [place] Start: 12-06-2023 End: 12-06-2023 Patient encounter procedure [facility] [place] [place] Start: 11-24-2023 End: 11-24-2023 Patient encounter procedure 11/24/2023 9:30 AM EST Appointment [facility] [place] [place] [address] [place] [address] [facility] [place] [place] Start: 11-07-2023 End: 11-07-2023 Patient encounter procedure 11/07/2023 4:00 PM EST Office Visit [facility] [address] [facility] [address] [place] [phone] [place] [address] [place] [address] [facility] Start: 11-07-2023 End: 11-07-2024 Request for Pre-Admission Testing Visit Request for Pre-Admission Testing Visit Procedures Routine BRCA gene mutation positive Expected: 11/07/2023 (Approximate), Expires: 11/07/2024 [facility] Service Area Work Phone: Comment on above: Expected: 11/07/2023 (Approximate), Expires: 11/07/2024 Start: 10-26-2023 End: 12-24-2024 MR Breast - bilateral W contrast IV MR breast bilateral w contrast full protocol Imaging Routine BRCA2 gene mutation positive Breast cancer screening, high risk patient Expected: 10/26/2023, Expires: 12/24/2024 [facility] Work Phone: Comment on above: Expected: 10/26/2023 , Expires: 12/24/2024 Start: 10-18-2023 End: 10-18-2023 Patient encounter procedure 10/18/2023 1:00 PM EST Office Visit [facility] [address] [place] [address] Kely Crain, SENIOR STACK ENGINEER-CHOPPER OPERATOR [address] [facility] [address] [place] [address] [facility] Start: 10-06-2023 End: 10-06-2023 Patient encounter procedure 10/06/2023 2:00 PM EST Appointment [facility] [address] [place] [phone] [place] [address] [address] Department [place] [address] [place] [address] [place] [address] Yulia Dorman RN [facility] Start: 10-05-2023 End: 10-05-2024 Endoscopic Ultrasound (Upper) Endoscopic Ultrasound (Upper) Endoscopy Routine 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) Expected: 10/05/2023, Expires: 10/05/2024 [facility] Service Area Work Phone: Comment on above: Expected: 10/05/2023 , Expires: 10/05/2024 Start: 10-05-2023 End: 10-05-2023 Telemedicine consultation with patient 10/05/2023 9:[address] [facility] [address] [facility] [address] [place] [phone] [place] [address] [place] [place] [address] [facility] Start: 06-03-2023 COVID-19 Vaccine () COVID-19 Vaccine () [facility] Start: 06-03-2023 Influenza vaccination C [facility] Start: 10-03-2022 DEPRESSION ASSESSMENT DEPRESSION ASS ESSMENT [facility] Start: 06-03-2022 Influenza vaccination C [facility] Start: 10-29-2021 Adult depression screening assessment DEPRESSION SCREENING [facility] Start: 07-30-2021 COVID-19 VACCINE (2 - Booster for Jarvis series) COVID-19 VACCINE (2 - Booster for Jarvis series) [facility] Start: 2016 SHINGRIX VACCINE (1 of 2) SHINGRIX VACCINE (1 of 2) [facility] Start: 2016 Zoster Vaccines (1 of 2) Zoste r Vaccines (1 of 2) [facility] Start: 2011 COLOGUARD (FIT-DNA) COLOGUARD (FIT-D NA) [facility] Start: 2011 Colonoscopy COLONOSCOPY [facility] Start: 2011 COLORECTAL CANCER SCREENING COLORECTAL CANCER SCREENING [facility] Start: [address] COLONOGRAPHY [facility] Start: 2011 FECAL OCCULT BLOOD FECAL OCCULT BLOO D [facility] Start: 2011 SIGMOIDOSCOPY SIGMOIDOSCOPY [facility] Start: 2008 PAP TESTING PAP TESTING [facility] Start: 2006 Mammography MAMMOGRAM [facility] Start: 1996 HPV TESTING HPV TESTING [facility] Start: 1987 PAP TESTING PAP TESTING [facility] Start: 1987 Screening for malign ant neoplasm of cervix [facility] Start: 1985 Urine microalbumin profile DTAP,TDAP,TD (1 - Tdap) [facility] Start: 1984 Diabetes mellitus screening Diabetes Screening [facility] Start: 1984 Hepatitis C screening [facility] Start: 1984 HIV SCREENING HIV SCREENING [facility] Start: 1972 PNEUMOCOCCAL (1 - PCV) PNEUMOCOCCAL (1 - PCV) [facility] Start: 1972 Pneumococcal Vaccine : Pediatrics (0 to 5 Years) and At-Risk Patients (6 to 64 Years) (1 of 2 - PCV) Pneumococcal Vaccine: Pediatrics (0 to 5 Years) and At-Risk Patients (6 to 64 Years) (1 of 2 - PCV) [facility] Start: 1966 HIV screening HIV Screening [facility] Start: 1966 Lipid panel Lipid Panel [facility] Start: 1966 Screening for malign ant neoplasm of colon [facility] Start: 1966 Thyroid stimulating hormone measurement TSH Level [facility] Start: 1966 Yearly Adult Physical Yearly Adult P hysical [facility] End: 12-06-2023 MG Breast - unilateral Single view for clip placement BI breast biopsy clip imaging Imaging Routine Abnormal findings on diagnostic imaging of breast Once for 1 Occurrences starting 12/06/2023 until 12/06/2023 [facility] Service Area Work Phone: Comment on above: Once for 1 Occurrenc es starting 12/06/2023 until 12/06/2023 End: 11-24-2023 MR Breast - bilateral W contrast IV [facility] Service Area Work Phone: Comment on above: Once for 1 Occurrenc es starting 11/24/2023 until 11/24/2023 Non-gynecological cytology method study Cytology Consultation (Non-Gynecologic) Pathology and Cytology Timed BRCA gene mutation positive Release Upon Ordering for 1 Occurrences starting 01/19/2024 [facility] Service Area Work Phone: Comment on above: Release Upon Orderin g for 1 Occurrences starting 01/19/2024 Surgical pathology study [facility] [facility] Work Phone: Comment on above: Release Upon Orderin g for 1 Occurrences starting 12/21/2023, 1 completed Surgical pathology study [facility] Work Phone: Comment on above: Release Upon Orderin g for 1 Occurrences starting 01/19/2024, 1 completed End: 05-06-2024 Ultrasound elastography parenchyma US ELASTOGRAPHY LIVER Radiology Routine Primary biliary cholangitis (HCC) 1 Occurrences starting 2023 until 05/06/2024 [facility] Work Phone: Comment on above: 1 Occurrences starti ng 2023 until 05/06/2024 End: 05-06-2024 US ABD RIGHT UPPER QUADRANT US ABD RIGHT UPPER QUADRANT Radiology Routine Primary biliary cholangitis (HCC) 1 Occurrences starting 2023 until 05/06/2024 [facility] Work Phone: Comment on above: 1 Occurrences starti ng 2023 until 05/06/2024 [facility] Immunizations Immunization Date Immunization Notes Care Provider Gin lechuga 11-25-2022 measles, mumps and rubella virus vaccine Reeves SALAM [facility] 11-23-2022 tetanus toxoid, reduced diphtheria toxoid, and acellular pertussis vaccine, adsorbed Reeves SALAM [facility] 06-04-2021 COVID-19 vaccine, vector-nr, rS-Ad26, PF, 0.5 mL Reeves SALAM [facility] 03-14-2014 hepatitis A vaccine, adult dosage Reeves SALAM [facility] 03-14-2014 hepatitis B vaccine, adult dosage Reeves SALAM [facility] 11-12-2013 hepatitis B vaccine, adult dosage Reeves SALAM [facility] 09-06-2013 hepatitis A vaccine, adult dosage Reeves SALAM [facility] 09-06-2013 hepatitis B vaccine, adult dosage Reeves SALAM [facility] 08-08-2010 influenza virus vaccine, unspecified formulation [facility] Work Phone: NEGATED: Highlighted row has not occurred!11-07-2023 influenza virus vaccine, unspecified formulation Vitaly Chisholmi [facility] NEGATED: Highlighted row has not occurred!05-13-2022 influenza virus vaccine, unspecified formulation Reeves SALAM [facility] NEGATED: Highlighted row has not occurred!09-15-2021 influenza virus vaccine, unspecified formulation Reeves [employer] [facility] Payers Date Payer Category Payer Unknown BILL KH[facility] [id number] 2021-Present [phone] [address] [place] [address] Indemnity [id number] 2021 Unknown [id number] [id number] .[id number] 2021 Unknown [id number] 1966 Unknown [id number] 2.16.840.1.852993.3.579.2.593 1966 Unknown [id number] 2.16.840.1.633729.3.579.2.593 1966 Unknown [id number] 2.16.840.1.029426.3.579.2.593 1966 Unknown [id number] 2.16.840.1.102751.3.579.2.593 1966 Unknown [id number] 2.16.840.1.030799.3.579.2.593 1966 Unknown [id number] 2.16.840.1.139991.3.579.2.593 1966 Unknown [id number] 2.16.840.1.524552.3.579.2.593 1966 Unknown [id number] 2.16.840.1.695073.3.579.2.124 3 1966 Unknown [id number] 2.16.840.1.605810.3.579.2.124 3 1966 Unknown [id number] 2.16.840.1.766939.3.579.2.124 3 1966 Unknown [id number] 2.16.840.1.878461.3.579.2.124 3 1966 Unknown [id number] 2.16.840.1.354474.3.579.2.124 3 1966 Unknown [id number] 2.16.840.1.968911.3.579.2.124 3 1966 Unknown [id number] 2.16.840.1.466228.3.579.2.124 3 1966 Unknown [id number] 2.16.840.1.681179.3.579.2.124 3 1966 Unknown [id number] 2.16.840.1.636791.3.579.2.727 1966 Unknown [id number] 2.16.840.1.318067.3.579.2.727 1966 Unknown [id number] 2.16.840.1.906936.3.579.2.727 1966 Unknown [id number] 2.16.840.1.215915.3.579.2.727 1966 Unknown [id number] 2.16.840.1.808559.3.579.2.727 1966 Unknown [id number] 2.16.840.1.687850.3.579.2.727 1966 Unknown [id number] 2.16.840.1.156984.3.579.2.124 4 1966 Unknown [id number] 2.16.840.1.425543.3.579.2.124 4 1966 Unknown [id number] 2.16.840.1.422231.3.579.2.124 4 1966 Unknown [id number] 2.16.840.1.769807.3.579.2.124 5 1966 Unknown [id number] 2.16.840.1.485826.3.579.2.124 5 1966 Unknown [id number] 2.16.840.1.144064.3.579.2.124 5 1966 Unknown [id number] 2.16.840.1.380953.3.579.2.124 5 1966 Unknown [id number] 2.16.840.1.076735.3.579.2.124 5 1966 Unknown [id number] 2.16.840.1.550314.3.579.2.124 5 1966 Unknown [id number] 2.16.840.1.940210.3.579.2.124 5 1966 Unknown [id number] 2.16.840.1.013540.3.579.2.124 5 1966 Unknown [id number] 2.16.840.1.431829.3.579.2.124 5 1966 Unknown [id number] 2.16.840.1.602522.3.579.2.124 5 1966 Unknown [id number] 2.16.840.1.712617.3.579.2.124 5 1966 Unknown [id number] 2.16.840.1.430840.3.579.2.124 5 1966 Unknown [id number] 2.16.840.1.416007.3.579.2.124 5 1966 Unknown [id number] 2.16.840.1.166330.3.579.2.125 9 Social History Date Type Detail Facility Start: 05-13-2022 End: 09-21-2023 Tobacco smoking status DCIS Never smoked tobacco [facility] Start: 01-21-2021 Alcohol intake 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 (finding) [facility] Start: 1965 Sex Assigned At Not on file C [facility] Tobacco smoking status Never [facility] Start: 04-06-2023 End: 02-20-2024 Sex Assigned At Female [facility] Start: 11-13-2019 End: 09-21-2023 Tobacco use and exposure Smokeless tobacco non-user [facility] Start: 04-06-2023 End: 02-20-2024 History of Social function [facility] Start: 09-21-2023 End: 02-24-2024 Alcohol intake Lifetime non-drinker (finding) [facility] Work Phone: Start: 09-08-2023 Sexual orientation Heterosexual (sangita becker) [facility] Work Phone: Start: 09-11-2023 End: 02-24-2024 Exposure to SARS-CoV-2 (event) Not sure [facility] NEGATED: Highlighted rowStart: WHITLEYF History of tobacco use Passive smoker [facility] Work Phone: Functional Status Date Assessment Result Facility 01-18-2024 Functional Status N/A [facility] 11-14-2023 Functional Status N/A [facility] 05-12-2023 Functional Status N/A [facility] 01-12-2023 Functional Status N/A [facility] 05-13-2022 Functional Status N/A [facility] Clinical Notes 03-02-2022 to 02-24-2024 Ruth Perez MD - 02/24/2024 11:10 AM Joe Hernandez MD - 02/20/2024 12:00 PM Joe Hernandez MD - 01/18/2024 5:04 PM Joe Hernandez MD - 01/18/2024 5:04 PM EDTPatient Instructions Note Date & Type Note Facility 02-24-2024 History of Present illness Narrative Ms. De Dios is a 58-year-old patient with past medical history of anxiety, hypothyroidism, macular degeneration, osteopenia, recently diagnosed with BRCA2 mutation, and primary biliary cholangitis presented to the endocrinology clinic for evaluation of her hypothyroidism in the setting of excessive weight gain post Ocalvia use for her PBC. Background: ======== Patient was diagnosed at the age of 18 with hypothyroidism and was started on levothyroxine. At the age of 39 patient was diagnosed with primary biliary cholangitis [after liver biopsy], initially started on receiving fenofibrate were added, around early 2019 patient was started on Ocalvia. Patient mentioned that around 2019 she experienced significant weight loss [down to 130 pounds], along with scalp and eyebrows hair loss, along with brain fog, however after introduction of the new medication, the patient started to gain weight very quickly, [around 50 pounds]. Patient had a fracture of her arm back then, and was diagnosed with osteopenia was initially taking bisphosphonate. Patient was told that this medication can affect her thyroid disease, and that she requires frequent follow-up. 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 ROS: Sleep good Energy: ` Good, patient does not nap usually during the day, does not snore Denies any compressive symptoms Tends to have heat intolerance Has brittle nails, dry skin, alternating bowel movements between diarrhea and constipation, denies any abdominal pain, does have muscle cramps, denies any muscle weakness. Patient mentioned she is eating more carbs recently and she feels more hungry, and her level of activity has decreased in the past few years after she has retired. The patient takes her levothyroxine appropriately as prescribed in the morning, and her calcium tablets in the evening. She also mentioned that she stopped taking alendronate. Past medical history: As mentioned above Past Surgical History: Procedure Laterality Date APPENDECTOMY 1984 SECTION, LOW TRANSVERSE 2001 COLONOSCOPY 12/29/2020 DILATION AND CURETTAGE OF UTERUS TONSILLECTOMY 1969 Family history PBC in her mother RA cousin Allergies Allergen Reactions Sulfa (Sulfonamide Antibiotics) Hives Rifampin Itching and Rash Current Outpatient Medications on File Prior to Visit Medication Sig Dispense Refill acetaminophen (Tylenol) 325 mg tablet Take 3 tablets (975 mg) by mouth every 6 hours if needed for mild pain (1 - 3) for up to 50 doses. (Patient not taking: Reported on 02/24/2024) 50 tablet 0 alendronate (Fosamax) 70 mg tablet Take 1 tablet (70 mg) by mouth every 7 days. Take in the morning with a full glass of water, on an empty stomach, and do not take anything else by mouth or lie down for the next 30 min. calcium carbonate-vitamin D3 500 mg-5 mcg (200 unit) tablet Take 1 tablet by mouth once daily. calcium citrate-vitamin D3 (Citracal+D) 315 mg-5 mcg (200 unit) tablet Take 1 tablet by mouth once daily. cholecalciferol (Vitamin D-3) 50,000 unit capsule Take 1 capsule (50,000 Units) by mouth 1 (one) time per week. fenofibrate (Tricor) 145 mg tablet Take 0.5 tablets (72.5 mg) by mouth every other day. ibuprofen 600 mg tablet Take 1 tablet (600 mg) by mouth every 6 hours if needed for moderate pain (4 - 6) for up to 50 doses. 50 tablet 0 levothyroxine (Tirosint) 112 mcg capsule Take 1 capsule (112 mcg) by mouth once daily. LORazepam (Ativan) 1 mg tablet Take one tablet by mouth one hour prior to MRI. You may take one more tablet by mouth up to 15 minutes prior to MRI if needed. (Patient not taking: Reported on 02/24/2024) 2 tablet 0 multivitamin tablet Take 1 tablet by mouth once daily. obeticholic acid (Ocaliva) 5 mg tablet Take 0.5 tablets by mouth once daily. ondansetron (Zofran) 4 mg tablet Take 1 tablet (4 mg) by mouth every 6 hours if needed for nausea for up to 20 doses. (Patient not taking: Reported on 02/24/2024) 20 tablet 0 polyethylene glycol (Glycolax, Miralax) 17 gram packet Take 17 g by mouth once daily as needed (for constipation) for up to 10 doses. (Patient not taking: Reported on 02/24/2024) 10 packet 0 traMADol (Ultram) 50 mg tablet Take 1 tablet (50 mg) by mouth every 6 hours if needed for severe pain (7 - 10) for up to 12 doses. (Patient not taking: Reported on 02/24/2024) 12 tablet 0 ursodiol (Actigall) 500 mg tablet Take 1 tablet (500 mg) by mouth 2 times a day. ursodiol (Actigall) 500 mg tablet Take 0.5 tablets (250 mg) by mouth once daily in the morning. No current facility-administered medications on file prior to visit. Physical exam: Pleasant, obese, Positive Chvostek No palpable goiter or thyroid nodules. No supraclavicular fat pad No purpleish abdominal striae No lower extremity swelling, no delayed relaxation phase of the reflexes, no tremor Lab Results Component Value Date TSH 1.50 12/19/2023 Lab Results Component Value Date ANIONGAP 15 02/24/2024 BUN 18 02/24/2024 CO2 26 02/24/2024 CREATININE 0.88 02/24/2024 K 4.6 02/24/2024 NA 137 02/24/2024 CL 101 02/24/2024 PHOS 3.6 02/24/2024 GLUCOSE 101 (H) 02/24/2024 CALCIUM 9.2 02/24/2024 EGFR 77 02/24/2024 ALBUMIN 4.4 02/24/2024 PTH 42.2 02/24/2024 VITD25 58 01/16/2024 Labs in October 2023 outside Free T4 2.79 TSH 0.856 T3 2.28 Assessment/plan: Ms. De Dios is a 58-year-old patient with past medical history of anxiety, hypothyroidism, macular degeneration, osteopenia (off bisphosphonate), recently diagnosed with BRCA2 mutation, and primary biliary cholangitis presented to the endocrinology clinic for evaluation of her hypothyroidism in the setting of excessive weight gain post Ocalvia use for her PBC. Weight gain is most likely attributed to high carb diet and decreased activity level. Clinically euthyroid. Positive Chvostek sign -Will continue same dose of levothyroxine. -Options for weight loss are limited given her liver disease. -Can use minoxidil for hair loss. -Will check 1.25 dihydroxy vitamin D, CMP, PTH -Continue calcium, patient may need different form of vitamin D replacement given her PBC Will call patient with lab results to discuss next steps in management. RTC in 1 year Alkaline phosphatase came back elevated to 158, unable to add bone specific alkaline phosphatase to the sample from today. New order for fractionated alkaline phosphatase was placed, sent a message for the patient with the above update [patient is active on MyChart] Patient was seen, examined, and discussed with Associated attestation - Yogesh Gonzalez MD - 02/25/2024 7:45 AM EDT I saw and evaluated the patient. I personally obtained the calderón and critical portions of the history and physical exam or was physically present for calderón and critical portions performed by the resident/fellow. I reviewed the resident/fellow's documentation and discussed the patient with the resident/fellow. I agree with the resident/fellow's medical decision making as documented in the note. documented in this encounter [facility] Work Phone: 02-20-2024 History of Present illness Narrative Patient ID: Nithya De Dios is a 58 y.o. female. Referring Physician: No referring provider defined for this encounter. Primary Care Provider: Shaikh Brant MD Subjective Patient is a 58 year old female with newly diagnosed BRCA2 mutation. Referred to us by genetics for counseling for risk reducing BSO. 01/19/24 Lap BSO, benign pathology Medical History: Hypothyroidism Hypotension Primary Biliary Cholangitis Surgical History: age 36, open appendectomy through low transverse abdominal incision Tonsillectomy age 4 Social History: Non smoker Non drinker No illicit drugs Lives with S.O. Obstetrics/Gynecology History: Menopause age 41, no HRT Menarche age 14 No hx of OCPs , Dr. 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 up to date. Family History: -Cousin with [id number] mutation. -Maternal aunt with BRCA2 pathogenic mutation [...] age, at 68. -Paternal cousin with cancer [id number] at unknown age. -Two paternal cousins once removed with brain cancer, at 27 and 25 respectively. -Paternal grandmother of ovarian cancer at unknown age. -Two paternal great aunt with cancer [id number] at unknown age. Interval Doing well post op, no significant pain Eating well Bowels are wnl Objective BSA: 1.94 meters squared BP 110/72 (BP Location: Right arm, Patient Position: Sitting, BP Cuff Size: Adult) Pulse 73 Temp 36.1 C (97 F) (Temporal) Resp 16 Wt 85.8 kg (189 lb 2.5 oz) SpO2 97% BMI 34.60 kg/m Physical Exam HENT: Head: Normocephalic. Cardiovascular: Rate and Rhythm: Normal rate. Abdominal: General: Abdomen is flat. Palpations: Abdomen is soft. Comments: Lap sites well healed Musculoskeletal: General: Normal range of motion. Cervical back: Normal range of motion. Skin: General: Skin is warm and dry. Neurological: Mental Status: She is alert. Psychiatric: Mood and Affect: Mood normal. Behavior: Behavior normal. Performance Status: Asymptomatic Assessment/Plan Oncology History No history exists. Problem List Items Addressed This Visit ICD-10-CM BRCA positive - Primary Z15.01, Z15.09 Treatment Plans No treatment plans exist Doing well after BSO, benign pathology She will continue well woman care with her primary drying frame operator. I will see her back as needed. documented in this encounter [facility] Work Phone: 01-18-2024 History and physical note History Of Present Illness Nithya De Dios is a 58 y.o. female newly diagnosed BRCA2 mutation who presents for risk reducing BSO Medical History: Hypothyroidism Hypotension Primary Biliary Cholangitis Surgical History: age 36, open appendectomy through low transverse abdominal incision Tonsillectomy age 4 Social History: Non smoker Non drinker No illicit drugs Lives with S.O. Obstetrics/Gynecology History: Menopause age 41, no HRT Menarche age 14 No hx of OCPs , Dr. 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 up to date. Oncology History No history exists. Social History She reports that she has never smoked. She has never been exposed to tobacco smoke. She has never used smokeless tobacco. She reports that she does not drink alcohol and does not use drugs. Allergies Sulfa (sulfonamide antibiotics) and Rifampin Review of Systems All other systems reviewed and are negative. Physical Exam Constitutional: Appearance: Normal appearance. HENT: Head: Normocephalic and atraumatic. Nose: Nose normal. Mouth/Throat: Mouth: Mucous membranes are moist. Cardiovascular: Rate and Rhythm: Normal rate. Pulmonary: Effort: Pulmonary effort is normal. Abdominal: Palpations: Abdomen is soft. Skin: General: Skin is warm and dry. Neurological: General: No focal deficit present. Mental Status: She is alert. Psychiatric: Mood and Affect: Mood normal. Last Recorded Vitals There were no vitals taken for this visit. Assessment/Plan Principal Problem: BRCA gene mutation positive 58 y.o. female newly diagnosed BRCA2 mutation who presents for risk reducing BSO - Plan to proceed to OR for procedure as above Seen and discussed with Dr. Mary Omer MD PGY-2 T [facility] Work Phone: 01-18-2024 History and physical note History Of Present Illness Nithya De Dios is a 58 y.o. female newly diagnosed BRCA2 mutation who presents for risk reducing BSO Medical History: Hypothyroidism Hypotension Primary Biliary Cholangitis Surgical History: age 36, open appendectomy through low transverse abdominal incision Tonsillectomy age 4 Social History: Non smoker Non drinker No illicit drugs Lives with S.O. Obstetrics/Gynecology History: Menopause age 41, no HRT Menarche age 14 No hx of OCPs , Dr. 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 up to date. Oncology History No history exists. Social History She reports that she has never smoked. She has never been exposed to tobacco smoke. She has never used smokeless tobacco. She reports that she does not drink alcohol and does not use drugs. Allergies Sulfa (sulfonamide antibiotics) and Rifampin Review of Systems All other systems reviewed and are negative. Physical Exam Constitutional: Appearance: Normal appearance. HENT: Head: Normocephalic and atraumatic. Nose: Nose normal. Mouth/Throat: Mouth: Mucous membranes are moist. Cardiovascular: Rate and Rhythm: Normal rate. Pulmonary: Effort: Pulmonary effort is normal. Abdominal: Palpations: Abdomen is soft. Skin: General: Skin is warm and dry. Neurological: General: No focal deficit present. Mental Status: She is alert. Psychiatric: Mood and Affect: Mood normal. Last Recorded Vitals There were no vitals taken for this visit. Assessment/Plan Principal Problem: BRCA gene mutation positive 58 y.o. female newly diagnosed BRCA2 mutation who presents for risk reducing BSO - Plan to proceed to OR for procedure as above Seen and discussed with Dr. Mary Omer MD PGY-2 documented in this encounter [facility] Work Phone: 01-18-2024 Hospital Note Formatting of t his note might be different from the original. [X] POV w/Dr. Hernandez February 19 @ 12:00 [facility] 58 year old female with newly diagnosed BRCA2 mutation who presents for risk reducing BSO Medical History: Hypothyroidism Hypotension Primary Biliary Cholangitis Surgical History: age 36, open appendectomy through low transverse abdominal incision Tonsillectomy age 4 Social History: Non smoker Non drinker No illicit drugs Lives with S.O. Obstetrics/Gynecology History: Menopause age 41, no HRT Menarche age 14 No hx of OCPs , Dr. 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 up to date. [facility] Work Phone: 01-18-2024 Miscellaneous Notes [X] QASIM richards/Dr. Hernandez February 19 @ 12:00 [facility] 58 year old female with newly diagnosed BRCA2 mutation who presents for risk reducing BSO Medical History: Hypothyroidism Hypotension Primary Biliary Cholangitis Surgical History: age 36, open appendectomy through low transverse abdominal incision Tonsillectomy age 4 Social History: Non smoker Non drinker No illicit drugs Lives with S.O. Obstetrics/Gynecology History: Menopause age 41, no HRT Menarche age 14 No hx of OCPs , Dr. 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 up to date. documented in this encounter [facility] Work Phone: 12-06-2023 History of Present illness Narrative Nithya De Dios female 1965 58 y.o. [id number] Chief Complaint Biopsy consultation, abnormal MRI History Of Present Illness Nithya De Dios is a very pleasant 58 y.o. female [facility] surveillance care. She underwent genetic testing demonstrating BRCA 2 gene mutation. She has family history of breast cancer, see below. She denies breast surgery or biopsy. She has a history of PBC (Primary Biliary Cholangitis). She follows with Gastroenterology. She presents today for abnormal MRI. She is here with her Dmitry osborn. BREAST IMAGIN11/24/2023 Bilateral Full MRI, indicates BI-RADS Category 4. Right breast, indeterminate mass warranting MRI directed ultrasound and biopsy as indicated. 03/30/2023 [facility], Bilateral screening mammogram, indicates BI-RADS Category 1. REPRODUCTIVE HISTORY: menarche age 14, , first age 36, breastfed x 2.5 years, no OCP's, natural menopause age 50, no HRT, scattered fibroglandular tissue FAMILY CANCER HISTORY: Maternal Aunt: Breast cancer, age 79, BRCA 2 positive/Gastric cancer, age 80 Maternal Great Aunt (1): Breast cancer Maternal Great Aunt (2): Breast cancer, age 48/Ovarian cancer, age 62 Maternal Cousin: BRCA 2 positive, NO cancer Maternal Grandmother: Pancreatic cancer, age 54 Maternal Great Grandfather: Pancreatic cancer Maternal Great Uncle (1): Prostate cancer, 60s Maternal Great Uncle (2): Prostate cancer, 60s Maternal Great Uncle (3): Non-Hodgkins Lymphoma Paternal Uncle: Lymphoma Paternal Cousin (1): Unknown cancer Paternal Cousin (2): Brain cancer, 20s Paternal Cousin (3): Brain cancer, 20s Paternal Grandmother: Ovarian cancer Paternal Great Aunt (1): Unknown cancer Paternal Great Aunt (2): Unknown cancer Surgical History She has no past surgical history on file. Social History She reports that she has never smoked. She has never been exposed to tobacco smoke. She has never used smokeless tobacco. She reports that she does not drink alcohol and does not use drugs. Family History Family History Problem Relation Name Age of Onset Breast cancer Other greast aunt maternal Allergies Sulfa (sulfonamide antibiotics) Medications Current Outpatient Medications Medication Instructions alendronate (FOSAMAX) 70 mg, oral, Every 7 days, Take in the morning with a full glass of water, on an empty stomach, and do not take anything else by mouth or lie down for the next 30 min. calcium carbonate-vitamin D3 500 mg-5 mcg (200 unit) tablet 1 tablet, oral, Daily calcium citrate-vitamin D3 (Citracal+D) 315 mg-5 mcg (200 unit) tablet 1 tablet, oral, Daily fenofibrate (TRICOR) 145 mg, oral, Daily levothyroxine (TIROSINT) 112 mcg, oral, Daily multivitamin tablet 1 tablet, oral, Daily Ocaliva 5 mg, oral, Daily ursodiol (ACTIGALL) 500 mg, oral, 3 times daily REVIEW OF SYSTEMS Constitutional: Negative for appetite change, fatigue, fever and unexpected weight change. HENT: Negative for ear pain, hearing loss, nosebleeds, sore throat and trouble swallowing. Eyes: Negative for discharge, itching and visual disturbance. Respiratory: Negative for cough, chest tightness and shortness of breath. Cardiovascular: Negative for chest pain, palpitations and leg swelling. Breast: as indicated in HPI Gastrointestinal: Negative for abdominal pain, constipation, diarrhea and nausea. Endocrine: Negative for cold intolerance and heat intolerance. Genitourinary: Negative for dysuria, frequency, hematuria, pelvic pain and vaginal bleeding. Musculoskeletal: Negative for arthralgias, back pain, gait problem, joint swelling and myalgias. Skin: Negative for color change and rash. Allergic/Immunologic: Negative for environmental allergies and food allergies. Neurological: Negative for dizziness, tremors, speech difficulty, weakness, numbness and headaches. Hematological: Does not bruise/bleed easily. Psychiatric/Behavioral: Negative for agitation, dysphoric mood and sleep disturbance. The patient is not nervous/anxious. Past Medical History She has no past medical history on file. Physical Exam Patient is alert and oriented x3 and in a relaxed and appropriate mood. Her gait is steady and hand grasps are equal. Sclera is clear. The breasts are nearly symmetrical. The tissue is very soft without palpable abnormalities, discrete nodules or masses. The skin and nipples appear normal. There is no cervical, supraclavicular or axillary lymphadenopathy. Heart rate and rhythm normal, S1 and S2 appreciated. The lungs are clear to auscultation bilaterally. Abdomen is soft and non-tender. Physical Exam Last Recorded Vitals Vitals: 12/06/23 1107 BP: 127/75 Pulse: 74 Resp: 16 Relevant Results Time was spent discussing digital images of the radiology testing with the patient. I explained the results in depth, along with suggested explanation for follow up recommendations based on the testing results. BI-RADS Category 4 Imaging Narrative & Impression Interpreted By: Lia Bunch and Avery Ross STUDY: BI US BREAST LIMITED RIGHT; 12/06/2023 1:04 pm ACCESSION NUMBER(S): [id number] ORDERING CLINICIAN: KELY CRAIN INDICATION: MRI directed ultrasound of an enhancing right breast mass. BRCA 2 gene mutation. Family history of breast cancer. COMPARISON: Correlation with breast MRI 11/24/2023 and mammogram 03/30/2023. FINDINGS: A targeted ultrasound of the entire lower outer right breast was performed by a registered pheresis specialist and Dr. Garett Quevedo using elastography. An oval circumscribed hypoechoic mass measuring 0.4 x 0.1 x 0.2 cm is seen at the 8 o'clock position 3 cm from the nipple. It is avascular and soft on elastography. This possibly corresponds with the enhancing breast mass on MRI 11/24/2023. A definite sonographic correlate for the MRI finding is not appreciated. IMPRESSION: Possible sonographic correlate of the enhancing right breast mass previously noted on breast MRI 11/24/2023. Due to its subtle sonographic appearance, further evaluation with surgical consultation and MRI guided biopsy is recommended. Dr. Garett Quevedo explained the findings and recommendations to the patient at the time of exam and Kely Crain CHOPPER OPERATOR. A message was sent to the referring practitioner at the time of this dictation regarding these critical findings. A pre-procedure form was filled out. Method of Detection: Category Smri - Screening MRI BI-RADS CATEGORY: BI-RADS Category: 4 Suspicious. Recommendation: Surgical Consultation and Biopsy. Recommended Date: Immediate. Laterality: Right. Narrative & Impression Interpreted By: Lia Bunch and Avery Ross STUDY: BI MR BREAST BILATERAL WITH CONTRAST FULL PROTOCOL; 11/24/2023 10:13 am ACCESSION NUMBER(S): [id number] ORDERING CLINICIAN: KELY CRAIN INDICATION: High-risk supplemental screening. BRCA 2 gene mutation. Family history of breast cancer. COMPARISON: Correlation with mammogram dated 03/30/2023, 03/29/2022, 03/25/2021. TECHNIQUE: Using a dedicated breast coil, STIR axial and T1-weighted fat saturation axial images of the breasts were obtained, the latter both before and after intravenous administration of Gadolinium DTPA. On an independent workstation, 3-D images were formulated using Triton including time enhancement curves, subtraction images and MIP images. Intravenous contrast: 17 mL of Dotarem FINDINGS: There is symmetric minimal bilateral background enhancement. Scattered fibroglandular tissue. RIGHT BREAST: An irregular enhancing mass measuring 0.5 x 0.5 x 0.5 cm is seen in the inferolateral breast at anterior depth (series 101, image 166 of 228). There is a possible corresponding asymmetry on mammogram 03/30/2023 on the MLO view. No axillary or internal mammary lymphadenopathy is appreciated. LEFT BREAST: No suspicious mass or nonmass enhancement is identified. No axillary or internal mammary lymphadenopathy is appreciated. NON-BREAST FINDINGS: A few nonenhancing right hepatic cysts are seen. IMPRESSION: 1. Indeterminate right breast mass. Surgical consultation, MRI directed ultrasound and possible biopsy is recommended. If there is no sonographic correlate, an MRI guided biopsy is recommended. A message was sent to the referring practitioner at the time of this dictation regarding these critical findings using the Epic notification system. A pre-procedure form was filled out. 2. No MRI evidence of malignancy in the left breast. Method of Detection: Category Smri - Screening MRI BI-RADS CATEGORY: BI-RADS Category: 4 Suspicious. Recommendation: Surgical Consultation and Biopsy. Recommended Date: Immediate. Laterality: Right. Assessment/Plan High risk surveillance care, abnormal MRI, right breast mass, BRCA 2 gene positive, family history of breast and ovarian cancer, scattered fibroglandular tissue Plan: Right breast MRI guided biopsy. Ativan sent to [facility] for biopsy. Patient Discussion/Summary I recommend a right breast MRI guided biopsy. A breast radiology physician will perform the procedure. Possible diagnoses include benign, atypia or cancer. Bruising and mild discomfort after the biopsy is normal and will improve. I typically have results in 3-5 business days. I will call you with the results, please have your phone handy to take my call. If you receive medical information from [facility] Personal Health Record, it is possible to view or see results of your biopsy or procedure before I contact you directly. I will provide recommendations for future follow up based on your biopsy results. You can see your health information, review clinical summaries from office visits & test results online when you follow your health with MY Chart, a personal health record. To sign up go to [email or web address]. If you need assistance with signing up or trouble getting into your account call [employer] Patient Line 25/04 at [phone]. Should you have any questions or concerns after biopsy, please do not hesitate to call my office at [phone]. If it has been more than a week since your biopsy was performed and you have not received results, please call my office at [phone]. Thank you for choosing [facility] and trusting me as your healthcare provider. I am honored to be a provider on your health care team and I remain dedicated to helping you achieve your health goals. IBIS Solomon documented in this encounter [facility] Work Phone: 12-06-2023 Instructions IBIS Solomon - 12/06/2023 12:30 PM EST I recommend a right breast MRI guided biopsy. A breast radiology physician will perform the procedure. Possible diagnoses include benign, atypia or cancer. Bruising and mild discomfort after the biopsy is normal and will improve. I typically have results in 3-5 business days. I will call you with the results, please have your phone handy to take my call. If you receive medical information from [facility] Personal Health Record, it is possible to view or see results of your biopsy or procedure before I contact you directly. I will provide recommendations for future follow up based on your biopsy results. You can see your health information, review clinical summaries from office visits & test results online when you follow your health with MY Chart, a personal health record. To sign up go to [email or web address]. If you need assistance with signing up or trouble getting into your account call [employer] Patient Line 25/04 at [phone]. Should you have any questions or concerns after biopsy, please do not hesitate to call my office at [phone]. If it has been more than a week since your biopsy was performed and you have not received results, please call my office at [phone]. Thank you for choosing [facility] and trusting me as your healthcare provider. I am honored to be a provider on your health care team and I remain dedicated to helping you achieve your health goals. documented in this encounter [facility] Work Phone: 11-25-2023 Note 1. Indeterminate rig ht breast mass. Surgical consultation, MRI directed ultrasound and possible biopsy is recommended. If there is no sonographic correlate, an MRI guided biopsy is recommended. A message was sent to the referring practitioner at the time of this dictation regarding these critical findings using the [employer] notification system. A pre-procedure form was filled out. 2. No MRI evidence of malignancy in the left breast. Method of Detection: Category Smri - Screening MRI BI-RADS CATEGORY: BI-RADS Category: 4 Suspicious. Recommendation: Surgical Consultation and Biopsy. Recommended Date: Immediate. Laterality: Right. For any future breast imaging appointments, please call [phone] ([phone]). MACRO: Critical Finding: Breast Imaging Abnormality. Notification was initiated on 11/25/2023 at 1:43 pm by Garett Quevedo. (-YCF-) Instructions: Surgical Consultation and Imaging Guided Biopsy. Signed by: Lia Bunch 11/25/2023 2:02 PM Dictation workstation: [id number] [facility] 11-07-2023 History of Present illness Narrative Patient ID: Nithya De Dios is a 58 y.o. female. Referring Physician: No referring provider defined for this encounter. Primary Care Provider: Shaikh Brant MD Subjective Patient is a 58 year old female with newly diagnosed BRCA2 mutation. Referred to us by genetics for counseling for risk reducing BSO. Medical History: Hypothyroidism Hypotension Primary Biliary Cholangitis Surgical History: age 36, open appendectomy through low transverse abdominal incision Tonsillectomy age 4 Social History: Non smoker Non drinker No illicit drugs Lives with S.O. Obstetrics/Gynecology History: Menopause age 41, no HRT Menarche age 14 No hx of OCPs , Dr. 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 up to date. Family History: -Cousin with [id number] mutation. -Maternal aunt with BRCA2 pathogenic mutation [...] age, at 68. -Paternal cousin with cancer [id number]-rgghozldp at unknown age. -Two paternal cousins once removed with brain cancer, at 27 and 25 respectively. -Paternal grandmother of ovarian cancer at unknown age. -Two paternal great aunt with cancer [id number]-xygtgeour at unknown age. Objective BSA: 1.93 meters squared BP 106/73 (BP Location: Right arm, Patient Position: Sitting, BP Cuff Size: Adult) Pulse 82 Temp 36.3 C (97.3 F) (Temporal) Resp 14 Wt 85.4 kg (188 lb 4.4 oz) BMI 34.44 kg/m Physical Exam Constitutional: Appearance: Normal appearance. She is normal weight. Cardiovascular: Rate and Rhythm: Normal rate. Pulmonary: Effort: Pulmonary effort is normal. Abdominal: General: Abdomen is flat. Palpations: Abdomen is soft. Musculoskeletal: General: Normal range of motion. Skin: General: Skin is warm and dry. Neurological: General: No focal deficit present. Mental Status: She is alert and oriented to person, place, and time. Mental status is at baseline. Psychiatric: Mood and Affect: Mood normal. Behavior: Behavior normal. Thought Content: Thought content normal. Judgment: Judgment normal. Performance Status: Asymptomatic Assessment/Plan 58yo pt with BRCA2 mutation here to discuss risk reducing BSO -Patient interested in proceeding with surgery -Discussed risks/benefits of BSO and she would like to proceed with this -Discussed risks/benefits of hysterectomy and she does not want to proceed with this -Will send for PAT -Schedule laparoscopic BSO, [facility] -Consent signed Aurelio Resendiz MD Seen with Dr. Hernandez documented in this encounter [facility] Work Phone: 10-26-2023 History of Present illness Narrative Nithya De Dios female 1965 58 y.o. [id number] Chief Complaint High risk evaluation History Of Present Illness Nithya De Dios is a very pleasant 58 y.o. female referred to the [facility] by Nicole Guzman for high risk evaluation. She is here with her partner, Dmitry. She underwent genetic testing demonstrating BRCA 2 gene mutation. She has family history of breast cancer, see below. She denies breast surgery or biopsy. She has a history of PBC (Primary Biliary Cholangitis). She follows with Gastroenterology. BREAST IMAGIN03/30/2023 [facility], Bilateral screening mammogram, indicates BI-RADS Category 1. REPRODUCTIVE HISTORY: menarche age 14, , first age 36, breastfed x 2.5 years, no OCP's, natural menopause age 50, no HRT, scattered fibroglandular tissue FAMILY CANCER HISTORY: Maternal Aunt: Breast cancer, age 79, BRCA 2 positive/Gastric cancer, age 80 Maternal Great Aunt (1): Breast cancer Maternal Great Aunt (2): Breast cancer, age 48/Ovarian cancer, age 62 Maternal Cousin: BRCA 2 positive, NO cancer Maternal Grandmother: Pancreatic cancer, age 54 Maternal Great Grandfather: Pancreatic cancer Maternal Great Uncle (1): Prostate cancer, 60s Maternal Great Uncle (2): Prostate cancer, 60s Maternal Great Uncle (3): Non-Hodgkins Lymphoma Paternal Uncle: Lymphoma Paternal Cousin (1): Unknown cancer Paternal Cousin (2): Brain cancer, 20s Paternal Cousin (3): Brain cancer, 20s Paternal Grandmother: Ovarian cancer Paternal Great Aunt (1): Unknown cancer Paternal Great Aunt (2): Unknown cancer Surgical History She has no past surgical history on file. Social History She reports that she has never smoked. She has never been exposed to tobacco smoke. She has never used smokeless tobacco. She reports that she does not drink alcohol and does not use drugs. Family History No family history on file. Allergies Sulfa (sulfonamide antibiotics) Medications Current Outpatient Medications Medication Instructions alendronate (FOSAMAX) 70 mg, oral, Every 7 days, Take in the morning with a full glass of water, on an empty stomach, and do not take anything else by mouth or lie down for the next 30 min. calcium carbonate-vitamin D3 500 mg-5 mcg (200 unit) tablet 1 tablet, oral, Daily calcium citrate-vitamin D3 (Citracal+D) 315 mg-5 mcg (200 unit) tablet 1 tablet, oral, Daily fenofibrate (TRICOR) 145 mg, oral, Daily levothyroxine (TIROSINT) 112 mcg, oral, Daily multivitamin tablet 1 tablet, oral, Daily Ocaliva 5 mg, oral, Daily ursodiol (ACTIGALL) 500 mg, oral, 3 times daily REVIEW OF SYSTEMS Constitutional: Negative for appetite change, fatigue, fever and unexpected weight change. HENT: Negative for ear pain, hearing loss, nosebleeds, sore throat and trouble swallowing. Eyes: Negative for discharge, itching and visual disturbance. Respiratory: Negative for cough, chest tightness and shortness of breath. Cardiovascular: Negative for chest pain, palpitations and leg swelling. Breast: as indicated in HPI Gastrointestinal: Negative for abdominal pain, constipation, diarrhea and nausea. Endocrine: Negative for cold intolerance and heat intolerance. Genitourinary: Negative for dysuria, frequency, hematuria, pelvic pain and vaginal bleeding. Musculoskeletal: Negative for arthralgias, back pain, gait problem, joint swelling and myalgias. Skin: Negative for color change and rash. Allergic/Immunologic: Negative for environmental allergies and food allergies. Neurological: Negative for dizziness, tremors, speech difficulty, weakness, numbness and headaches. Hematological: Does not bruise/bleed easily. Psychiatric/Behavioral: Negative for agitation, dysphoric mood and sleep disturbance. The patient is not nervous/anxious. Past Medical History She has no past medical history on file. Physical Exam Patient is alert and oriented x3 and in a relaxed and appropriate mood. Her gait is steady and hand grasps are equal. Sclera is clear. The breasts are nearly symmetrical. The tissue is very soft without palpable abnormalities, discrete nodules or masses. The skin and nipples appear normal. There is no cervical, supraclavicular or axillary lymphadenopathy. Heart rate and rhythm normal, S1 and S2 appreciated. The lungs are clear to auscultation bilaterally. Abdomen is soft and non-tender. Physical Exam Last Recorded Vitals Vitals: 10/26/23 1257 BP: 96/70 Pulse: 76 Resp: 16 Relevant Results Time was spent discussing digital images of the radiology testing with the patient. I explained the results in depth, along with suggested explanation for follow up recommendations based on the testing results. BI-RADS Category 1 Imaging BI mammo bilateral screening tomosynthesis 03/30/2023 Narrative EXAMINATION: BI MAMMOGRAM SCREENING TOMOSYNTHESIS BILATERAL CLINICAL HISTORY:routine COMPARISON: Priors dating back to 2018. RESULT: 3-D tomosynthesis imaging of the bilateral breast(s) was performed. Density: Scattered fibroglandular density [2] There are no suspicious masses or asymmetries, areas of architectural distortion or suspicious areas of microcalcifications. Impression BIRADS 1 - Negative Recommended follow-up: Routine Screening Mamm Board Certified Radiologists. Accredited by the ACR and FDA. MAMMOGRAPHY IS VERY IMPORTANT TO YOUR HEALTH. THE [employer] GUIDELINES RECOMMEND THAT WOMEN 40 YEARS OF AGE AND OLDER SHOULD HAVE A MAMMOGRAM EVERY YEAR. A REMINDER LETTER WILL BE SENT AT THE APPROPRIATE TIME. THIS FACILITY UTILIZES A REMINDER SYSTEM TO ENSURE ALL PATIENTS RECEIVE REMINDER NOTIFICATIONS AT THE APPROPRIATE TIME BASED ON THE RECOMMENDATIONS OF THIS EXAM. THIS INCLUDES REMINDERS FOR ROUTINE SCREENING MAMMOGRAMS, DIAGNOSTIC MAMMOGRAMS IN WHICH THE PATIENT IS ASKED TO RETURN FOR ADDITIONAL VIEWS, OR OTHER BREAST IMAGING INTERVENTIONS WHEN APPROPRIATE. THE PATIENT WILL BE PLACED IN THE APPROPRIATE REMINDER SYSTEM INCLUDING A REMINDER AT THE APPROPRIATE TIME FOR ANY PENDING ADDITIONAL VIEWS. ELECTRONICALLY SIGNED BY: Davian Lewis MD Assessment/Plan High risk surveillance care, normal clinical exam, BRCA 2 gene positive, family history of breast and ovarian cancer, scattered fibroglandular tissue Plan: Return in April 2024 for bilateral screening mammogram and office visit. Full MRI now. Endocrine therapy discussed and recommended. Declines at this time. If she elects for medication, will get clearance for PBC due to liver function and taking multiple medications. Patient Discussion/Summary Your clinical examination is normal. Please return in April 2024 for bilateral screening mammogram and office visit or sooner if you have any problems or concerns. High risk breast surveillance care plan: Yearly mammogram with digital breast tomosynthesis Twice yearly clinical breast examinations Breast MRI - Full MRI now Monthly self breast examinations Vitamin D3 2000 IU/daily (over the counter) Exercise 3-4 times per week for 45-60 minutes Limit alcohol to 3-4 drinks per week Eat a healthy low-fat diet with lots of fruits and vegetables Risk models indicate personal risk of breast cancer in the next five years and lifetime (age 90) [place]: 5 year risk 11% (average 1.5%) and lifetime risk 47% (average 8%) Risk model indicates you are eligible for endocrine therapy with Tamoxifen, Raloxifene or Exemestane. Endocrine therapy reduces lifetime risk of breast cancer by 50% when taken for 5 years. You can see your health information, review clinical summaries from office visits & test results online when you follow your health with MY Chart, a personal health record. To sign up go to [email or web address]. If you need assistance with signing up or trouble getting into your account call [employer] Patient Line 25/04 at [phone]. My office phone number is [phone] if you need to get in touch with me or have additional questions or concerns. Thank you for choosing [facility] and trusting me as your healthcare provider. I look forward to seeing you again at your next office visit. I am honored to be a provider on your health care team and I remain dedicated to helping you achieve your health goals. IBIS Solomon documented in this encounter [facility] Work Phone: 10-26-2023 Instructions IBIS Solomon - 10/26/2023 1:00 PM EST Your clinical examination is normal. Please return in April 2024 for bilateral screening mammogram and office visit or sooner if you have any problems or concerns. High risk breast surveillance care plan: Yearly mammogram with digital breast tomosynthesis Twice yearly clinical breast examinations Breast MRI - Full MRI now Monthly self breast examinations Vitamin D3 2000 IU/daily (over the counter) Exercise 3-4 times per week for 45-60 minutes Limit alcohol to 3-4 drinks per week Eat a healthy low-fat diet with lots of fruits and vegetables Risk models indicate personal risk of breast cancer in the next five years and lifetime (age 90) [place]: 5 year risk 11% (average 1.5%) and lifetime risk 47% (average 8%) Risk model indicates you are eligible for endocrine therapy with Tamoxifen, Raloxifene or Exemestane. Endocrine therapy reduces lifetime risk of breast cancer by 50% when taken for 5 years. You can see your health information, review clinical summaries from office visits & test results online when you follow your health with MY Chart, a personal health record. To sign up go to [email or web address]. If you need assistance with signing up or trouble getting into your account call [employer] Patient Line 25/04 at [phone]. My office phone number is [phone] if you need to get in touch with me or have additional questions or concerns. Thank you for choosing [facility] and trusting me as your healthcare provider. I look forward to seeing you again at your next office visit. I am honored to be a provider on your health care team and I remain dedicated to helping you achieve your health goals. documented in this encounter [facility] Work Phone: 10-06-2023 Attending History and physical note H&P [...] schedule for EUS. Total time 22 minutes. [facility] Work Phone: 10-06-2023 History and physical [...] time 22 minutes. documented in this encounter [facility] Work Phone: 10-05-2023 History of Present [...] time 22 minutes. documented in this encounter [facility] Work Phone: 09-21-2023 History of Present illness Narrative Patient ID: Nithya De Dios is a 58 y.o. female. Primary Care [...] No hx of OCPs , Dr. 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 up to date. Family History: -Cousin with [id number] mutation. -Maternal aunt with BRCA2 pathogenic mutation [...] age, at 68. -Paternal cousin with cancer [id number]-fgaeijxgz at unknown age. -Two paternal cousins once removed with brain cancer, at 27 and 25 respectively. -Paternal grandmother of ovarian cancer at unknown age. -Two paternal great aunt with cancer [id number]-niwqrnhhm at unknown age. Objective Visit Vitals BP [...] and then surgery. documented in this encounter [facility] Work Phone: 05-06-2023 Miscellaneous Notes Fibroscan w Ekpa 4.8 Us stable Pt sent the following MCM regarding US and fibroscan results: I didn t see these results in my chart for the [facility], so I am sending them. Can you see that Dr. Mandeep Martin sees these? Pt uploaded images of results under scanned docs. Results not viewable in Care Everywhere at this time. See scanned docs for results review. Annette Molina RN May 05, 2023 12:16 PM documented in this encounter [facility] 2023 Miscellaneous Notes Pt notified via original MCM. Annette Molina RN 2023 3:06 PM Annette Can you please return the call, and let her know: I will put in orders for her to have it done again with ultrasound, so we have a basis for comparison Thanks Pt sent the following MCM: Dr. Mandeep Martin wanted to know it the scan was vibration or ultrasound, it was ultrasound. Pt provided attachment of fibroscan image results. See pt entered attachment from yesterday 04/06/23. Message sent to Dr. Meza for review. Annette Molina RN 2023 10:17 AM documented in this encounter [facility] 04-06-2023 Note HNO ID: [id number] Author: Yas Meza MD Service: ? Author Type: Physician Type: Progress Notes Filed: 04/10/2023 8:40 AM Note Text: VIRTUAL VISIT PROGRESS NOTE This is a virtual visit using [employer] video visit. It required patient-provider interaction for the medical decision making as documented below. I have communicated my name and active licensure. The patient's identity and physical location were verified at the time of this visit. Either the patient or their legal financial service representative has been informed of the risks and benefits of -- and alternatives to -- treatment through a remote evaluation and consents to proceed with the evaluation remotely. 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, after initial evaluation for persistent pruritus but nl liver enzymes -s/p liver biopsy done at [facility] 07/06/2013 w early stage disease Restarted on [...] 09/2019 -s/p T+A -s/p appy age 18 -P8C3-6-4-9, s/p CS x 1 -h/o hypothyroidism -h/o osteopenia -h/o pre-diabetes Since last seen -labs done 03/28/23 at [facility] Ast 32 Alt 58 Alkphos 150 Alb 3.5 T bili 0.3 -s/p mammogram done - wnl -s/p BMD done last at [facility] - told osteopenia, but no worse -weight stable ~ 175#, 5'2 (BMI 31.1) -continuing on malathi (1250 mg/d , equivalent to 15.2569374428 mg/kg/d) along w fenofibrate, ocaliva (2.5) - worried about increasing itching -had fibroscan done at [facility] ~ 1 -2 yrs HISTORY REVIEWED (electronic [...] early stage fibrosis if any; repeated at [facility] (?results) Last BMD done at [facility] 12/2019 -> osteropenia (unchanged) Still w mildly elevated alk phos on labs; concerned re risk of pruritus if increased dose of ocaliva vs loose stools Long discussion today regarding issues and options PLAN: Suggested: 1. PBC -continue malathi dose (1250 mg/d ) - Continue fenofibrate at current dose -continue current dose of ocaliva -repeat VCTE (vs ARFII) at [facility]; if no change in Ekpa, would hold off on making any dose changes, but if suggestion of worsening,would have a low threshold to incr dose -serial labs -BMD locally per protocol Follow-up on the phone RTC ~1 yr Yas eMza MD [facility] 04-06-2023 History of Present illness Narrative VIRTUAL VISIT PROGRESS NOTE This is a virtual visit using [employer] video visit. It required patient-provider interaction for the medical decision making as documented below. I have communicated my name and active licensure. The patient's identity and physical location were verified at the time of this visit. Either the patient or their legal financial service representative has been informed of the risks and benefits of -- and alternatives to -- treatment through a remote evaluation and consents to proceed with the evaluation remotely. 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, after initial evaluation for persistent pruritus but nl liver enzymes -s/p liver biopsy done at [facility] 07/06/2013 w early stage disease Restarted on [...] 09/2019 -s/p T+A -s/p appy age 18 -Y7D0-0-7-0, s/p CS x 1 -h/o hypothyroidism -h/o osteopenia -h/o pre-diabetes Since last seen -labs done 03/28/23 at [facility] Ast 32 Alt 58 Alkphos 150 Alb 3.5 T bili 0.3 -s/p mammogram done - wnl -s/p BMD done last at [facility] - told osteopenia, but no worse -weight stable ~ 175#, 5'2 (BMI 31.1) -continuing on malathi (1250 mg/d , equivalent to 15.5419567235 mg/kg/d) along w fenofibrate, ocaliva (2.5) - worried about increasing itching -had fibroscan done at [facility] ~ 1 -2 yrs HISTORY REVIEWED (electronic [...] early stage fibrosis if any; repeated at [facility] (?results) Last BMD done at [facility] 12/2019 -> osteropenia (unchanged) Still w mildly elevated alk phos on labs; concerned re risk of pruritus if increased dose of ocaliva vs loose stools Long discussion today regarding issues and options PLAN: Suggested: 1. PBC -continue malathi dose (1250 mg/d ) - Continue fenofibrate at current dose -continue current dose of ocaliva -repeat VCTE (vs ARFII) at [facility]; if no change in Ekpa, would hold off on making any dose changes, but if suggestion of worsening,would have a low threshold to incr dose -serial labs -BMD locally per protocol Follow-up on the phone RTC ~1 yr Yas Meza MD documented in this encounter [facility] 01-12-2023 Hospital Discharge instructions Follow Up Care 01/12/2023 11:12:44 With:Eh URIAS, JEFFREY Blandon, [facility] Address: [address] [place] [phone] When:3 months [facility] 01-04-2023 Miscellaneous Notes Received the following [employer] message: Dr. Paradise Martin wanted to see lab results in 4 months Constanza Corona RN January 04, 2023 3:18 PM documented in this encounter [facility] 10-11-2022 Note HNO ID: [id number] Author: Yas Meza MD Service: ? Author Type: Physician Type: Progress Notes Filed: 10/15/2022 4:52 PM Note Text: VIRTUAL VISIT PROGRESS NOTE This is a virtual visit using [employer] video visit. It required patient-provider interaction for the medical decision making as documented below. 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, after initial evaluation for persistent pruritus but nl liver enzymes -s/p liver biopsy done at [facility] 07/06/2013 w early stage disease Restarted on [...] 09/2019 -s/p T+A -s/p appy age 18 -R0N3-6-3-7, s/p CS x 1 -h/o hypothyroidism -h/o osteopenia -h/o pre-diabetes Since last seen -labs done 09/22 at [facility] Ast 30 Alt 53 Alkphos 153 Alb 3.6 -weight still uptrending - now ~176 lbs/ 80kg -continuing on malathi (12.2268378451 mg/kg/d, given wgt =176), fenofibrate, ocaliva (2.5) [...] prob early stage fibrosis BMD done at [facility] 12/2019 -> osteropenia Mildly elevated alk phos [...] set of labs RTC ~6 months Yas Meza MD [facility] 10-11-2022 History of Present illness Narrative VIRTUAL VISIT PROGRESS NOTE This is a virtual visit using [employer] video visit. It required patient-provider interaction for the medical decision making as documented below. 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, after initial evaluation for persistent pruritus but nl liver enzymes -s/p liver biopsy done at [facility] 07/06/2013 w early stage disease Restarted on [...] 09/2019 -s/p T+A -s/p appy age 18 -B4Y3-9-6-7, s/p CS x 1 -h/o hypothyroidism -h/o osteopenia -h/o pre-diabetes Since last seen -labs done 09/22 at [facility] Ast 30 Alt 53 Alkphos 153 Alb 3.6 -weight still uptrending - now ~176 lbs/ 80kg -continuing on malathi (12.8694174780 mg/kg/d, given wgt =176), fenofibrate, ocaliva (2.5) [...] prob early stage fibrosis BMD done at [facility] 12/2019 -> osteropenia Mildly elevated alk phos [...] set of labs RTC ~6 months Yas Meza MD documented in this encounter [facility] 05-13-2022 Evaluation + Plan note Diagnostic Tests PendingCB w/ Auto Diff 05/13/22Comprehensive Metabolic Panel 05/13/22 [facility] 03-03-2022 History of Present illness Narrative VIRTUAL VISIT PROGRESS NOTE This is a virtual visit using [employer] video visit. It required patient-provider interaction for the medical decision making as documented below. 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 Yas Meza MD documented in this encounter [facility] 03-02-2022 Miscellaneous Notes Called Nithya De Dios to remind them of an appointment with Dr. Meza on 03/03/22. Spoke with patient. Appointment confirmed. documented in this encounter [facility] Evaluation + Plan note Future Appointments Appointment Date:01/18/2024 10:45:00 AM Scheduled Provider:Leandro BILL MD Location:[facility] Appointment Type:[facility] Follow Up Future Scheduled TestsVitamin D 25 Hydroxy 01/12/23CBC w/ Auto Diff 01/12/23Hepatic Function Panel 01/12/23BD Bone Density DEXA Peripheral Study 01/12/23 [facility] Evaluation + Plan note Future Appointments Appointment Date:01/18/2024 10:45:00 AM Scheduled Provider:Leandro BILL MD Location:[facility] Appointment Type:[facility] Follow Up Future Scheduled TestsVitamin D 25 Hydroxy 01/12/23CBC w/ Auto Diff 01/12/23Hepatic Function Panel 01/12/23BD Bone Density DEXA Peripheral Study 03/04/23 [facility] Evaluation + Plan note Future Appointments Appointment Date:11/14/2023 10:00:00 AM Scheduled Provider:Vitaly Stauffer MD Location:[facility] Appointment Type:BAD Follow Up Appointment Date:01/18/2024 10:45:00 AM Scheduled Provider:Leandro BILL MD Location:[facility] Appointment Type:[facility] Follow Up Future Scheduled TestsVitamin D 25 Hydroxy 01/12/23CBC w/ Auto Diff 01/12/23Hepatic Function Panel 01/12/23BD Bone Density DEXA Peripheral Study 03/04/23 [facility] Evaluation + Plan note Future Appointments Appointment Date:01/18/2024 11:00:00 AM Scheduled Provider:Vitaly Stauffer MD Location:[facility] Appointment Type:BAD Follow Up Future Scheduled TestsVitamin D 25 Hydroxy 01/12/23CBC w/ Auto Diff 01/12/23Hepatic Function Panel 01/12/23BD Bone Density DEXA Peripheral Study 03/04/23 [facility] Evaluation + Plan note Future Appointments Appointment Date:04/18/2024 10:15:00 AM Scheduled Provider:Vitaly Stauffer MD Location:[facility] Appointment Type:[facility] Follow Up Future Scheduled TestsCBC w/ Auto Diff 01/18/24Comprehensive Metabolic Panel 01/18/24BD Bone Density DEXA Peripheral Study 03/04/23 [facility] Evaluation note Diagnosis Primary [facility]ang[facility]) [facility] Diagnosis Primary biliary cholangitis (HCC)- Primary [facility] Diagnosis Primary biliary cholangitis (HCC)- Primary [facility] Diagnosis BRCA positive- Primary Genetic susceptibility to malignant neoplasm of breast documented in this encounter [facility] Work Phone: Evaluation note* Diagnosis BRCA positive- Primary 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) documented in this encounter [facility] Work Phone: Evaluation note* Diagnosis BRCA positive 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) documented in this encounter [facility] Work Phone: Evaluation note* Diagnosis Breast cancer screening, high risk patient- Primary Screening mammogram for high-risk patient BRCA2 gene mutation positive documented in this encounter [facility] Work Phone: [phone] note* Diagnosis BRCA gene mutation positive- Primary BRCA positive Genetic susceptibility to malignant neoplasm of breast BRCA gene mutation positive- Primary BRCA gene mutation positive documented in this encounter [facility] Work Phone: [phone] note* Diagnosis BRCA gene mutation positive- Primary BRCA2 gene mutation positive Breast cancer screening, high risk patient Screening mammogram for high-risk patient BRCA gene mutation positive documented in this encounter [facility] Work Phone: [phone] note* Diagnosis BRCA gene mutation positive- Primary BRCA2 gene mutation positive Breast cancer screening, high risk patient Screening mammogram for high-risk patient BRCA gene mutation positive documented in this encounter [facility] Work Phone: [phone] note* Diagnosis BRCA gene mutation positive- Primary Abnormal MRI, breast- Primary Mass of lower outer quadrant of right breast Situational anxiety BRCA gene mutation positive documented in this encounter [facility] Work Phone: [phone] note* Diagnosis BRCA gene mutation positive- Primary Abnormal findings on diagnostic imaging of breast Other (abnormal) findings on radiological examination of breast BRCA gene mutation positive documented in this encounter [facility] Work Phone: [phone] note* Diagnosis BRCA gene mutation positive- Primary Abnormal MRI Other nonspecific (abnormal) findings on radiological and other examinations of body structure BRCA gene mutation positive documented in this encounter [facility] Work Phone: [phone] note* Diagnosis BRCA gene mutation positive- Primary Abnormal MRI Other nonspecific (abnormal) findings on radiological and other examinations of body structure BRCA gene mutation positive documented in this encounter [facility] Work Phone: [phone] note* Diagnosis BRCA gene mutation positive- Primary Abnormal MRI, breast Mass of lower outer quadrant of right breast BRCA gene mutation positive documented in this encounter [facility] Work Phone: [phone] note* Diagnosis BRCA gene mutation positive- Primary Abnormal mammogram Abnormal mammogram, unspecified BRCA gene mutation positive documented in this encounter [facility] Work Phone: Evaluation note* Diagnosis BRCA gene mutation positive- Primary BRCA gene mutation positive Postoperative pain Other acute postoperative pain documented in this encounter [facility] Work Phone: Evaluation note* Diagnosis BRCA positive- Primary Genetic susceptibility to malignant neoplasm of breast documented in this encounter [facility] Work Phone: Evaluation note* Diagnosis Hypothyroidism, unspecified type- Primary Vitamin D deficiency documented in this encounter [facility] Work Phone: Hospital course Narrative No data available for this section [facility] Hospital Discharge instructions No data available for this section [facility] Progress note No data available for this section [facility] Reason for referral (narrative)* Diagnostic Procedure Only (Routine) - Pending Review Specialty Diagnoses / Procedures Referred By Contac t Referred To Contact US IMAGING Diagnoses Primary biliary cholangitis (HCC) Procedures US ELASTOGRAPHY LIVER ULTRASOUND ELASTOGRAPHY PARENCHYMA Yas Meza MD [address] [place] [address] Us Imaging Referral ID Status Reason Start Date Expiration Date Visits Requested Visits Authorized [id number] Pending Review Auto-Generat ed Referral 2023 05/06/2024 1 1 * Diagnostic Procedure Only (Routine) - Pending Review Specialty Diagnoses / Procedures Referred By Contac t Referred To Contact US IMAGING Diagnoses Primary biliary cholangitis (HCC) Procedures US ABD RIGHT UPPER QUADRANT US ABDOMINAL REAL TIME W/IMAGE LIMITED Yas Meza MD [address] [place] [address] Us Imaging Referral ID Status Reason Start Date Expiration Date Visits Requested Visits Authorized [id number] Pending Review Auto-Generat ed Referral 2023 05/06/2024 1 1 [facility] for referral (narrative) , with dr. roz ryan at for PBC Referred by: Eh URIAS, Vitaly Hernandes [facility] Summary Purpose Family History No Family History Records FoundNo Family History Records FoundNo Family History Records Found No data available for this section No Family History Records Found No data available for this section No Family History Records FoundNo Family History Records FoundNo Family History Records FoundNo Family History Records Found Advance Directives No Advanced Directives Records FoundNo Advanced Directives Records FoundNo Advanced Directives Records FoundNo Advanced Directives Records FoundNo Advanced Directives Records FoundNo Advanced Directives Records FoundNo Advanced Directives Records FoundNo Advanced Directives Records Found Reason for Referral Specialty Diagnoses / Procedures Referred By Contac t Referred To Contact Radiology Diagnoses Abnormal mammogram Procedures BI breast biopsy clip imaging Kely Crain SENIOR STACK ENGINEER-CHOPPER OPERATOR [address] [place] [address] Referral ID Status Reason Start Date Expiration Date Visits Requested Visits Authorized [id number] Authorized Perform Procedure 12/06/2023 12/05/2024 1 1 Specialty Diagnoses / Procedures Referred By Contac t Referred To Contact Radiology Diagnoses Abnormal MRI Procedures BI US breast limited right Kely Crain APRN-CHOPPER OPERATOR [address] [facility] En [address] [place] [address] Referral ID Status Reason Start Date Expiration Date Visits Requested Visits Authorized [id number] Authorized Perform Procedure 11/25/2023 11/24/2024 1 1 Specialty Diagnoses / Procedures Referred By Contac t Referred To Contact Radiology Diagnoses Abnormal findings on diagnostic imaging of breast Procedures BI breast biopsy clip imaging Kely Crain SENIOR STACK ENGINEER-CHOPPER OPERATOR [address] [facility] [address] [place] [address] Referral ID Status Reason Start Date Expiration Date Visits Requested Visits Authorized [id number] Authorized Perform Procedure 11/25/2023 11/24/2024 1 1 Specialty Diagnoses / Procedures Referred By Contac t Referred To Contact Radiology Diagnoses Abnormal MRI, breast Mass of lower outer quadrant of right breast Procedures BI MR breast vacuum assisted biopsy Kely Crain, SENIOR STACK ENGINEER-CHOPPER OPERATOR [address] [place] [address] Referral ID Status Reason Start Date Expiration Date Visits Requested Visits Authorized [id number] Authorized Perform Procedure 12/06/2023 12/05/2024 1 1 Specialty Diagnoses / Procedures Referred By Contac t Referred To Contact Radiology Diagnoses BRCA2 gene mutation positive Breast cancer screening, high risk patient Procedures MR breast bilateral w contrast full protocol Kely Crain, SENIOR STACK ENGINEER-CHOPPER OPERATOR [address] [place] [address] Referral ID Status Reason Start Date Expiration Date Visits Requested Visits Authorized [id number] Pending Review Perform Procedure 10/26/2023 10/25/2024 1 1 Specialty Diagnoses / Procedures Referred By Contac t Referred To Contact Radiology Diagnoses BRCA2 gene mutation positive Breast cancer screening, high risk patient Procedures BI mammo bilateral screening tomosynthesis Kely Crain, SENIOR STACK ENGINEER-CHOPPER OPERATOR [address] [place] [address] Referral ID Status Reason Start Date Expiration Date Visits Requested Visits Authorized [id number] Authorized Perform Procedure 10/26/2023 10/25/2024 1 1 Specialty Diagnoses / Procedures Referred By Contac t Referred To Contact Gastroenterology Diagnoses 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) Procedures Endoscopic Ultrasound (Upper) [place] [address] [address] [facility] [place] [address] Referral ID Status Reason Start Date Expiration Date V isits Requested Visits Authorized [id number] Authorized 10/05/2023 10/04/2024 1 1 Additional Source Comments Source Comments (unrecognize d section and content) In the event this informatio n is protected by the Federal Confidentiality of Alcohol and Drug Abuse Patient Records regulations: The Federal rules restrict any use of the information to criminally investigate or prosecute any alcohol or drug abuse patient.[facility] the event this information is protected by the Federal Confidentiality of Alcohol and Drug Abuse Patient Records regulations: The Federal rules restrict any use of the information to criminally investigate or prosecute any alcohol or drug abuse patient.[facility] the event this information is protected by the Federal Confidentiality of Alcohol and Drug Abuse Patient Records regulations: The Federal rules restrict any use of the information to criminally investigate or prosecute any alcohol or drug abuse patient.[facility] the event this information is protected by the Federal Confidentiality of Alcohol and Drug Abuse Patient Records regulations: The Federal rules restrict any use of the information to criminally investigate or prosecute any alcohol or drug abuse patient.[facility] the event this information is protected by the Federal Confidentiality of Alcohol and Drug Abuse Patient Records regulations: The Federal rules restrict any use of the information to criminally investigate or prosecute any alcohol or drug abuse patient.[facility] the event this information is protected by the Federal Confidentiality of Alcohol and Drug Abuse Patient Records regulations: The Federal rules restrict any use of the information to criminally investigate or prosecute any alcohol or drug abuse patient.[facility] Hospital[facility] the event this information is protected by the Federal Confidentiality of Alcohol and Drug Abuse Patient Records regulations: The Federal rules restrict any use of the information to criminally investigate or prosecute any alcohol or drug abuse patient.[facility] HospitalIn the event this information is protected by the Federal Confidentiality of Alcohol and Drug Abuse Patient Records regulations: The Federal rules restrict any use of the information to criminally investigate or prosecute any alcohol or drug abuse patient.[facility] Reason for Visit (unrecogniz ed section and content) Reason Comments Liver Disease Specialty Diagnoses / Procedures Referred By Rosaura t Referred To Contact [facility] Diagnoses Primary biliary cholangitis (HCC) [K74.3] Procedures REFERRAL TO CC FINANCIAL COUNSELOR Video visit Yas Meza MD [address] [place] [address] [address] Referral ID Status Reason Start Date Expiration Date Visits Requested Visits Authorized [id number] Closed Financial Clearance Required - OON Payor OON Notification Letter Patient cleared - OON Required Payment Collected 03/23/2022 10/11/2022 1 1 Reason Comments Appointment Specialty Diagnoses / Procedures Referred By Contact Referred To Contact Gastroenterology / GASTROENTEROLOGY Diagnoses Primary bilary cholangitis Procedures REFERRAL TO [facility] FINANCIAL COUNSELOR EST VIRTUAL VISIT PATIENT Yas Meza MD [address] [facility] [place] [address] [place] [address] [place] [address] Referral ID Status Reason Start Date Expiration Date Visits Requested Visits Authorized [id number] Closed Financial Clearance Required - Self Pay Financial Clearance Required - OON Payor OON Notification Letter Patient Cleared Patient chose to pay or Auth obtained after CCN denied 10/13/2021 01/11/2022 1 1 Reason Comments Orders Reason Comments Results Specialty Diagnoses / Procedures Referred By Rosaura t Referred To Contact [facility] Diagnoses Primary biliary cholangitis (HCC) Procedures virtual visit Yas Meza MD [address] [facility] [place] [address] [address] Referral ID Status Reason Start Date Expiration Date V isits Requested Visits Authorized [id number] Closed OON/Self Pay Override 01/18/2023 04/19/2023 1 1 Reason Comments Results Specialty Diagnoses / Procedures Referred By Contac t Referred To Contact Gastroenterology Diagnoses 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) Procedures Endoscopic Ultrasound (Upper) [place] [address] [address] Department of Medicine-Gastroenterol [place] [id number] Referral ID Status Reason Start Date Expiration Date V isits Requested Visits Authorized [id number] Authorized 10/05/2023 10/04/2024 1 1 Reason Comments New Patient Visit High Risk Breast Cancer Specialty Diagnoses / Procedures Referred By Contac t Referred To Contact Surgical Oncology Diagnoses BRCA2 [place] [address] [address] Department [place] [address] Referral ID Status Reason Start Date Expiration Date Visits Requested Visits Authorized [id number] Authorized Specialty Services Required 09/06/2023 09/05/2024 1 1 Reason Comments Follow-up Specialty Diagnoses / Procedures [facility] Rad[facility] Diagnoses BRCA2 gene mutation positive Breast cancer screening, high risk patient Procedures MR breast bilateral w contrast full protocol Kely Crain SENIOR STACK ENGINEER-CHOPPER OPERATOR [address] [place] [address] Referral ID Status Reason Start Date Expiration Date Visits Requested Visits Authorized [id number] Authorized Perform Procedure 10/26/2023 10/25/2024 1 1 Reason Comments Abnormal Breast Imaging Specialty Diagnoses / Procedures [facility] Rad[facility] Diagnoses Abnormal findings on diagnostic imaging of breast Procedures BI breast biopsy clip imaging Kely Crain SENIOR STACK ENGINEER-CHOPPER OPERATOR [address] [place] [address] Referral ID Status Reason Start Date Expiration Date Visits Requested Visits Authorized [id number] Authorized Perform Procedure 11/25/2023 11/24/2024 1 1 Specialty Diagnoses / Procedures Referred By Contac t Referred To Contact Radiology Diagnoses Abnormal MRI Procedures BI US breast limited right Kely Crain SENIOR STACK ENGINEER-CHOPPER OPERATOR [address] [place] [address] Referral ID Status Reason Start Date Expiration Date Visits Requested Visits Authorized [id number] Authorized Perform Procedure 11/25/2023 11/24/2024 1 1 Specialty Diagnoses / Procedures Referred By Contac t Referred To Contact Radiology Diagnoses Abnormal MRI Procedures BI US guided breast localization and biopsy right Kely Crain, SENIOR STACK ENGINEER-CHOPPER OPERATOR [address] [place] [address] Referral ID Status Reason Start Date Expiration Date Visits Requested Visits Authorized [id number] Canceled Perform Procedure 11/25/2023 11/24/2024 1 1 Specialty Diagnoses / Procedures Referred By Contac t Referred To Contact Radiology Diagnoses Abnormal MRI, breast Mass of lower outer quadrant of right breast Procedures BI MR breast vacuum assisted biopsy Kely Crain, SENIOR STACK ENGINEER-CHOPPER OPERATOR [address] [place] [address] Referral ID Status Reason Start Date Expiration Date Visits Requested Visits Authorized [id number] Authorized Perform Procedure 12/06/2023 12/05/2024 1 1 Specialty Diagnoses / Procedures Referred By Contac t Referred To Contact Radiology Diagnoses Abnormal mammogram Procedures BI breast biopsy clip imaging Kely Crain, SENIOR STACK ENGINEER-CHOPPER OPERATOR [address] [place] [address] Referral ID Status Reason Start Date Expiration Date Visits Requested Visits Authorized [id number] Authorized Perform Procedure 12/06/2023 12/05/2024 1 1 Specialty Diagnoses / Procedures Referred By Contac t Referred To Contact Diagnoses BRCA gene mutation positive BRCA gene mutation positive [Z15.01, Z15.09] Procedures VT LAPAROSCOPY W/RMVL ADNEXAL STRUCTURES Laparoscopic Bilateral [place] [address] [place] [address] [employer] [address] [place] [address] Referral ID Status Reason Start Date Expiration Date Visits Re quested Visits Authorized [id number] 1 1 Care Teams (unrecognized sec tion and content) Athletic Equipment Custodian Relationship Specialty Start Date End Date Alok Choi Jr. [address] [place] [address] PCP - General 04/21/06 Athletic Equipment Custodian Relationship Specialty Start Date End Date Alok Choi Jr. [address] [place] [address] PCP - General 04/21/06 Athletic Equipment Custodian Relationship Specialty Start Date End Date Alok Choi Jr. [address] [place] [address] PCP - General 04/21/06 Athletic Equipment Custodian Relationship Specialty Start Date End Date Alok Choi Jr. [address] [facility] [address] [place] [address] PCP - General 04/21/06 Athletic Equipment Custodian Relationship Specialty Start Date End Date Alok Choi Jr. [address] [place] [address] PCP - General 04/21/06 Athletic Equipment Custodian Relationship Specialty Start Date End Date Alok Choi Jr. [address] [place] [address] PCP - General 04/21/06 Athletic Equipment Custodian Relationship Specialty Start Date End Date Alok Choi Jr. [address] [place] [address] PCP - General 04/21/06 Athletic Equipment Custodian Relationship Specialty Start Date End Date Shaikh Guo MD [facility] [place] [address] PCP - General Internal Medicine 09/08/23 Athletic Equipment Custodian Relationship Specialty Start Date End Date Shaikh Guo MD [address] [place] [address] PCP - General Internal Medicine 09/08/23 Athletic Equipment Custodian Relationship Specialty Start Date End Date Shaikh Guo MD [address] [place] [address] PCP - General Internal Medicine 09/08/23 Athletic Equipment Custodian Relationship Specialty Start Date End Date Shaikh Gou MD [address] [place] [address] PCP - General Internal Medicine 09/08/23 [place] [address] [place] [address] Client Services Specialist Obstetrics and Gynecology 11/07/23 Athletic Equipment Custodian Relationship Specialty Start Date End Date Shaikh Guo MD PCP - General Internal Medicine 09/08/23 [place] [address] [place] [address] Client Services Specialist Obstetrics and Gynecology 11/07/23 Athletic Equipment Custodian Relationship Specialty Start Date End Date Shaikh Guo MD PCP - General Internal Medicine 09/08/23 [place] [address] [place] [address] Client Services Specialist Obstetrics and Gynecology 11/07/23 Athletic Equipment Custodian Relationship Specialty Start Date End Date Shaikh Guo MD PCP - General Internal Medicine 09/08/23 [place] [address] [place] [address] Client Services Specialist Obstetrics and Gynecology 11/07/23 Athletic Equipment Custodian Relationship Specialty Start Date End Date Shaikh Guo MD PCP - General Internal Medicine 09/08/23 [place] [address] [place] [address] Client Services Specialist Obstetrics and Gynecology 11/07/23 Athletic Equipment Custodian Relationship Specialty Start Date End Date Shaikh Guo MD PCP - General Internal Medicine 09/08/23 [place] [address] [place] [address] Client Services Specialist Obstetrics and Gynecology 11/07/23 Athletic Equipment Custodian Relationship Specialty Start Date End Date Shaikh Guo MD PCP - General Internal Medicine 09/08/23 [place] [address] [place] [address] Client Services Specialist Obstetrics and Gynecology 11/07/23 Athletic Equipment Custodian Relationship Specialty Start Date End Date Shaikh Guo MD [address] [place], [place] [address], [place] [address] PCP - General Internal Medicine 12/20/23 [place] [address] [place] [address] Client Services Specialist Obstetrics and Gynecology 11/07/23 Athletic Equipment Custodian Relationship Specialty Start Date End Date Shaikh Guo MD [address] [place] [address] PCP - General Internal Medicine 12/20/23 [place] [address] [place] [address] Client Services Specialist Obstetrics and Gynecology 11/07/23 Athletic Equipment Custodian Relationship Specialty Start Date End Date Shaikh Guo MD [address] [place] [address] PCP - General Internal Medicine 12/20/23 [place] [address] [place] [address] Client Services Specialist Obstetrics and Gynecology 11/07/23 Athletic Equipment Custodian Relationship Specialty Start Date End Date Shaikh Guo MD [address] [place] [address] PCP - General Internal Medicine 12/20/23 [place] [address] [place] [address] Client Services Specialist Obstetrics and Gynecology 11/07/23 Athletic Equipment Custodian Relationship Specialty Start Date End Date Shaikh Guo MD [address] [place] [address] PCP - General Internal Medicine 12/20/23 [place] [address] [place] [address] Client Services Specialist Obstetrics and Gynecology 11/07/23 INFORMATION SOURCE (unrecogn ized section and content) DATE CREATED AUTHOR 03/29/2022 [facility] dical Specialist DATE CREATED AUTHOR AUTHOR'S ORGANIZ ATION 01/08/2023 [facility] DATE CREATED AUTHOR AUTHOR'S ORGANIZ ATION 05/07/2023 [facility] DATE CREATED AUTHOR AUTHOR'S ORGANIZ ATION 12/29/2023 [facility] DATE CREATED AUTHOR AUTHOR'S ORGANIZ ATION 01/19/2024 [facility] DATE CREATED AUTHOR AUTHOR'S ORGANIZ ATION 02/28/2024 [facility] DATE CREATED AUTHOR AUTHOR'S ORGANIZ ATION 02/28/2024 [facility] DATE CREATED AUTHOR AUTHOR'S ORGANIZ ATION 02/29/2024 [facility] dical Specialists EPIC Scheduled Active and Recently Administ ered Medications (unrecognized section and content) Medication Order 01/17/2024 01/18/2024 01/19/2024 lidocaine (Xylocaine) 10 mg/mL (1 %) injection 1 mg 1 mg (0.1 mL), subcutaneous, Once, On Mallory 01/19/24 at 1015, For 1 dose, Recovery (only), To be used for IV insertion ONLY 1015 (Due) oxygen (O2) therapy inhalation, Continuous - Inhalation, First dose on Mallory 01/19/24 at 1015, Recovery (only), Device: Nasal Cannula, Rate in liters per minute: 2 LPM, Keep O2 Sat Above: 92% 1015 (Due)1999 (Due) Continuous Medication Order 01/17/2024 01/18/2024 01/19/2024 lactated Ringer's infusion 100 mL/hr, intravenous, Continuous, Starting on Mallory 4/18/24 at 1015, Recovery (only) 1015 (Due) lactated Ringer's infusion 100 mL/hr, intravenous, Continuous, Starting on Mallory 01/19/24 at 1015, Recovery (only) 1015 (Continued from OR - Provider: Alessandra Manriquez RN) PRN Medication Order 01/17/2024 01/18/2024 01/19/2024 BUPivacaine HCl (Marcaine) 0.5 % (5 mg/mL) injection (CANCELED) As needed, Starting on Mallory 01/19/24 at 0947, Intraprocedure 0947 (Given - Provid er: Aurelio Resendiz MD) droperidol (Inapsine) injection 0.625 mg 0.625 mg, intravenous, Once as needed, nausea/vomiting, second line, Starting on Mallory 01/19/24 at 0958, For 1 dose, Recovery (only), Monitor QTc while on therapy (2 lead monitoring) HYDROmorphone (Dilaudid) injection 0.2 mg 0.2 mg, intravenous, Every 5 min PRN, pain moderate (4-6), first line, Starting on Mallory 01/19/24 at 0958, Recovery (only), Max total of 4 mg regardless of dose. HYDROmorphone (Dilaudid) injection 0.5 mg 0.5 mg, intravenous, Every 5 min PRN, pain severe (7-10), first line, Starting on Mallory 01/19/24 at 0958, Recovery (only), Max total of 4 mg regardless of dose. 1018 (Given - Provid er: Alessandra Manriquez RN) meperidine PF (Demerol) injection 12.5 mg 12.5 mg, intravenous, Every 10 min PRN, shivering, Starting on Mallory 01/19/24 at 0958, Recovery (only) ondansetron (Zofran) injection 4 mg 4 mg, intravenous, Once as needed, nausea/vomiting, first line, Starting on Mallory 01/19/24 at 0958, For 1 dose, Recovery (only), When administering via IV Push, administer over 3-5 minutes. oxyCODONE (Roxicodone) immediate release tablet 5 mg 5 mg, oral, Every 4 hours PRN, pain mild (1-3), first line, Starting on Mallory 01/19/24 at 0958, Recovery (only), When able to take oral medications., If ordered PRN for pain, nurse is permitted to administer this medication for higher pain scores based on patient preference? Yes oxygen (O2) therapy inhalation, Continuous PRN - O2/gases, other, Starting on Mallory 01/19/24 at 0958, Recovery (only), Device: Nasal Cannula, Rate in liters per minute: Other, Custom Value: 1-6 LPM, Keep O2 Sat Above: 92% 1005 (Start - Provid er: Alessandra Manriquez RN)1030 (Stopped - Provider: Alessandra Manriquez RN) FOR RECORDS PERTAINING TO PATIENTS WHO ARE [...] BE BASED ON THE PRIMARY CLINICAL RECORDS. [email or web address] [facility]. provides no warranty or guarantee of the accuracy or completeness of information in this document.
[2024-03-06 09:59] LABS: Alanine Aminotransferase 61 U/L (14-59); Albumin Globulin Ratio 0.8; Albumin Level 3.6 g/dL (3.4-5.0); Alkaline Phosphatase 162 U/L (46-116); Anion Gap 13.4; Aspartate Amino Transferase 31 U/L (15-37); BUN Creatinine Ratio 22.6; Bilirubin Total 0.4 mg/dL (0.2-1.0); Calcium 9.3 mg/dL (8.5-10.1); Carbon Dioxide 27.6 mmol/L (21.0-32.0); Chloride 104 mmol/L (98-107); Estimated GFR (African America >60 (>=60); Estimated GFR (Non-African Ame >60 (>=60); Globulin 4.3 g/dL; Glucose 102 mg/dL (74-106); Phosphorus 4.1 mg/dL (2.6-4.7); Sodium 141 mmol/L (136-145); Total Protein 7.9 g/dL (6.4-8.2)
[2024-03-07 12:10] LABS: PTH, Intact 15 pg/mL (15-65)
[2024-03-08 12:10] LABS: Calcitriol(1,25 di-OH Vit D) 62.7 pg/mL (24.8-81.5)
== END 2024-03-06 07:43 | disposition home or self-care (01) ==
LOC: LAB 07:44
PROVIDERS: PCP Internal Medicine
DX: K74.3 Primary biliary cirrhosis (principal); E55.9 Vitamin D deficiency, unspecified; R74.8 Abnormal levels of other serum enzymes
CPT/HCPCS: 36415; 80053; 82652; 83970; 84100

== ENCOUNTER 2024-03-14 09:03 | Outpatient (OUT) | payer OTHER, SELFPAY ==
--- OUTSIDE RECORDS SUMMARY | 2024-03-14 09:11 | XMS_ITS ---
Patient Summarization (C-CDA 2.1 CCD) Created on: March 14, 2024 NITHYA DE DIOS Teresa : 1965 Sex: Female Author Organization Sample organization Care Team Providers Care Pairer Name Role Phone Alok Choi Jr. Primary [...] MISC, DR MORENO Admitting Unavailable MISC, DR OMRENO Attending Unavailable MISC, DR MORENO Consulting Unavailable [...] Unavailable FAWWAD, GRAVES H Attending Unavailable YAS MEZA Referring Unavailable ALOK CHOI JR Primary Care Unavail able O'MARTIN, YAS S Attending Unavailable O'MARTIN, YAS S Referring Unavailable ALOK CHOI JR Primary Care Unavail able Mandeep'MARTINYAS Urban S Attending Unavailable Brant URIAS, [facility] Primary Care Provider Brant URIAS, [facility] Care Provider Minoo Hernandez MD Unavailable [phone] Brant URIAS, [facility] Provider Brant URIAS, [facility] Care Provider KELY CRAIN Attending Unavailable NICOLE GUZMAN S Referring Unavailable [facility] Unavailable EMRICKOCTAVIOKELY D Referring Unavailable [facility] Unavailable EMRICKKELY D Attending Unavailable [facility] Care Unavailable EMRICK KELY D Referring Unavailable [facility] Care Unavailable EMRICKALKELY D Referring Unavailable [facility] Care Unavailable EMRICKALKELY D Referring Unavailable [facility] Care Unavailable EMRICK KELY D Referring Unavailable [facility] Care Unavailable [facility] Primary Care Unavailable Vitaly Stauffer Talal Attending UnavailLeandro Mims Attending Unavailable ASHAM Reeves Referring Unavailable [facility] Care Unavailable SALAMChariser Admitting Unavailable [facility] Primary Care Unavailable O'MARTIN, YAS S Admitting Unavailable O'MARTIN, YAS S Attending Unavailable O'MARTIN YAS S Referring Unavailable Vitaly Stauffer Talal Attending UnavailLeandro Mims Attending Unavailable [facility] Primary Care Unavailable [facility] Primary Care Unavailable Vitaly Stauffer Talbonnie Attending UnavailHERMES Clark Attending Unavailable HERMES JOHNSON Attending Unavailable YOGESH GONZALEZ Attending Unavailable [facility] Primary Care Unavailable MINOO HERNANDEZ Attending Unavailable [facility] Primary Care Unavailable MINOO HERNANDEZ Admitting Unavailable MINOO HERNANDEZ Attending Unavailable FAWWAD, GRAVES Primary Care Unavailable KELY CRAIN Referring Unavailable FAWWAD, GRAVES Primary Care Unavailable KELY CRAIN Referring Unavailable FAWWAD, GRAVES Primary Care Unavailable MINOO HERNANDEZ Referring Unavailable FAWWAD, GRAVES Primary Care Unavailable LYNDON QUINN Attending Unavailable FAWWAD, GRAVES Primary Care Unavailable HERMES MONTELONGO Attending Unavailable FAWWAD, GRAVES Primary Care Unavailable CHAK, VANCE Attending Unavailable HERMES JOHNSON Referring Unavailable FAWWAD, GRAVES Primary Care Unavailable CHAK, VANCE Attending Unavailable CHAK, VANCE Referring Unavailable FAWWAD, GRAVES Primary Care Unavailable MINOO HERNANDEZ Attending Unavailable FAWWAD, GRAVES Primary Care Unavailable FAWWAD, GRAVES Primary Care Unavailable FAWWAD, GRAVES Primary Care Unavailable ANGELY KENT Attending Unavailable Allergies Allergy Classification Reported Allergen(s) Allergy Type Date of Onset Reaction(s) Facility rifAMPin (1 source) rifAMPin; Translations: [RIFAMPIN] Drug Allergy 6 [facility] Sulfonamides (antibiotic) (1 source) Sulfonamides (Antibiotic); Translations: [SULFA (SULFONAMIDE ANTIBIOTICS)] Drug Allergy 3 [facility] (18 sources) rifAMPin; Translations: [RIFAMPIN] Drug Allergy 6 Rash, Itching [facility] (20 sources) Sulfonamides (Antibiotic); Translations: [SULFA (SULFONAMIDE ANTIBIOTICS)] Drug Allergy 9 Other: See Comments, Hives [facility] (8 sources) Sulfonamides (Antibiotic); Translations: [sulfa drugs] Drug allergy allergy [facility] (1 source) Sulfonamides (Antibiotic) Drug allergy (disorder) 3 [facility] (1 source) ALLERGIES NOT ON FILE; Translations: [ALLERGIES NOT ON FILE] Propensity to adverse reactions (disorder) [facility] 3 Repository Encounters Encounter Date Encounter Type Care Provider Facility Start: 04-18-2024 [facility] Vitaly Stauffer Facility:[facility] Start: 02-28-2024 End: 02-28-2024 ambulatory ANGELY A PIPPA Not Available Start: 02-24-2024 End: 02-25-2024 ambulatory YOGESH Coffey [facility] Start: 02-24-2024 End: 02-25-2024 ambulatory [facility] Start: 02-24-2024 End: 02-24-2024 Office outpatient new 45 minutes Yogesh Gonzalez MD Work Phone: [facility] Comment on above: Hypothyroidism, unsp ecified type (Primary Dx); Vitamin D deficiency Start: 02-20-2024 End: 02-20-2024 ambulatory MINOO HERNANDEZ [facility] Start: 02-20-2024 End: 02-20-2024 Postop follow up visit related to original px Minoo Hernandez MD Work Phone: [facility] Comment on above: BRCA positive (Prima ry Dx) Start: 01-19-2024 End: 01-19-2024 ambulatory MINOO Ruiz HERNANDEZ [facility] Start: 01-19-2024 End: 01-19-2024 Subsequent hospital visit by physician Minoo Hernandez MD Work Phone: [facility] [place] Comment on above: Postoperative pain ( Primary Dx); BRCA gene mutation positive Start: 01-18-2024 End: 01-19-2024 ambulatory [facility] Start: 01-18-2024 End: 01-18-2024 Patient encounter procedure Vitaly Stauffer [facility] Start: 01-16-2024 End: 01-17-2024 ambulatory [facility] Start: 01-16-2024 End: 01-17-2024 Encounter for preprocedural laboratory examination [facility] Start: 12-21-2023 End: 12-22-2023 ambulatory KELY CRAIN [facility] Start: 12-21-2023 End: 12-21-2023 ambulatory KELY Becerra [facility] Start: 12-21-2023 End: 12-21-2023 Subsequent hospital visit by physician Troy Nazario [facility] Comment on above: Abnormal MRI, breast ; Mass of lower outer quadrant of right breast Abnormal mammogram Start: 12-19-2023 End: 12-20-2023 ambulatory MINOO Ruiz [facility] Start: 12-19-2023 End: 12-20-2023 Encounter for other preprocedural examination [facility] Start: 12-19-2023 End: 12-20-2023 Encounter for preprocedural cardiovascular examination [facility] Start: 12-19-2023 End: 12-20-2023 Encounter for preprocedural respiratory examination [facility] Start: 12-06-2023 End: 12-07-2023 ambulatory KELY Becerra [facility] Start: 12-06-2023 End: 12-06-2023 Office outpatient visit 25 minutes Kely Crain APRN-TRANSPORTER RADIOLOGY Work Phone: [facility] Comment on above: Abnormal MRI, breast (Primary Dx); Mass of lower outer quadrant of right breast; Situational anxiety Start: 12-06-2023 End: 12-06-2023 Subsequent hospital visit by physician Troy Fischero 2 [facility] Comment on above: Abnormal findings on diagnostic imaging of breast Abnormal MRI Start: 11-24-2023 End: 11-25-2023 ambulatory KELY Becerra [facility] Start: 11-24-2023 End: 11-24-2023 Subsequent hospital visit by physician Troy Nazario [facility] Comment on above: BRCA2 gene mutation positive; Breast cancer screening, high risk patient Start: 11-21-2023 End: 11-22-2023 ambulatory KELY CRAIN [facility] Start: 11-21-2023 End: 11-21-2023 Subsequent hospital visit by physician Rad External Film EF RAD EXTERNAL FILM VIRTUAL Comment on above: Arrived Start: 11-14-2023 End: 11-15-2023 ambulatory SHAIKH BRANT [facility] Start: 11-14-2023 End: 11-14-2023 Patient encounter procedure Vitaly Stauffer [facility] Start: 11-07-2023 End: 11-07-2023 ambulatory MINOO HERNANDEZ [facility] Start: 11-07-2023 End: 11-07-2023 Office outpatient visit 25 minutes Minoo Hernandez MD Work Phone: [facility] Comment on above: BRCA gene mutation p ositive (Primary Dx); BRCA positive Start: 10-26-2023 End: 10-26-2023 ambulatory KELY CRAIN [facility] Start: 10-26-2023 End: 10-26-2023 Office outpatient new 45 minutes Kely Crain FILTERING MACHINE TENDER HELPER-TRANSPORTER RADIOLOGY Work Phone: [facility] Comment on above: Breast cancer screen ing, high risk patient (Primary Dx); BRCA2 gene mutation positive Start: 10-06-2023 End: 10-07-[address] [facility] Start: 10-06-2023 End: 10-06-2023 Subsequent hospital visit by physician Vance Baires MD Work Phone: [facility] Comment on above: BRCA positive; Primary biliary cholangitis (CMS/HCC); Familial malignant neoplasm of pancreas (CMS/HCC) Start: 10-05-2023 End: 10-06-[address] [facility] Start: 10-05-2023 End: 10-05-2023 Phys/qhp telephone evaluation 21-30 min Vance Baires MD Work Phone: [facility] Comment on above: BRCA positive (Prima ry Dx); Primary biliary cholangitis (CMS/HCC); Familial malignant neoplasm of pancreas (CMS/HCC) Start: 09-21-2023 End: 09-22-2023 [facility] Start: 09-21-2023 End: 09-21-2023 Office outpatient new 30 minutes Hermes Montelongo FILTERING MACHINE TENDER HELPER-TRANSPORTER RADIOLOGY Work Phone: [facility] Comment on above: BRCA positive (Prima ry Dx) Start: 09-08-2023 ambulatory LYNDON Torie [facility] Start: 09-06-2023 End: 09-06-2023 ambulatory [facility] Start: 08-09-2023 End: 08-10-2023 ambulatory [facility] Start: 05-12-2023 End: 05-13-2023 ambulatory [facility] Facility[facility] Start: 05-12-2023 End: 05-12-2023 Patient encounter procedure [facility] Start: 05-05-2023 Telephone encounter Yas Cardenas MD Work Phone: Gastroenterology Comment on above: Results Start: 04-20-2023 End: 04-20-2023 ambulatory GRAVES FAKevynOKMariam Facility:[facility] Start: 04-20-2023 End: 04-20-2023 Patient encounter procedure YAS MEZA [facility] Start: 2023 Telephone encounter Yas Cardenas MD Work Phone: Gastroenterology Comment on above: Results Start: 04-06-2023 End: 04-06-2023 ambulatory Yas Meza MD Work Phone: Gastroenterology Comment on above: Fibroscan (ultrasoun d) Primary biliary chol angitis (HCC) (Primary Dx) Start: 04-06-2023 End: 04-06-2023 Telemedicine consultation with patient Yas Meza MD Work Phone: [facility] Start: 02-03-2023 End: 02-04-2023 ambulatory Reeves SALAM Facility:[facility] Start: 02-03-2023 End: 02-03-2023 Patient encounter procedure Reeves SALAM [facility] Start: 01-12-2023 End: 01-12-2023 Patient encounter procedure Reeves SALAM [facility] Start: 01-04-2023 Telephone encounter Yas Cardenas MD Work Phone: Gastroenterology Comment on above: Orders Start: 01-01-2023 End: 01-02-2023 ambulatory REEVES SALAM Facility: Start: 11-23-2022 End: 11-24-2022 ambulatory GRAVES H FAWWAD Facility:[facility] Start: 10-26-2022 End: 10-27-2022 ambulatory GRAVES H FAWWAD Facility:[facility] Start: 10-11-2022 End: 10-11-2022 ambulatory Yas Meza MD Work Phone: Gastroenterology Comment on above: Primary biliary chol angitis (HCC) (Primary Dx) Start: 10-11-2022 End: 10-11-2022 Telemedicine consultation with patient Yas Meza MD Work Phone: [facility] Start: 09-22-2022 End: 09-23-2022 ambulatory GRAVES H FAWWAD Facility:[facility] Start: 05-13-2022 End: 05-13-2022 Patient encounter procedure Reeves SALAM [facility] Start: 05-07-2022 End: 05-08-2022 ambulatory GRAVES H FAWWAD Facility:[facility] Start: 03-03-2022 End: 03-03-2022 ambulatory Yas Meza MD Work Phone: Gastroenterology Comment on above: Primary biliary chol angitis (HCC) Start: 03-03-2022 End: 03-03-2022 Telemedicine consultation with patient Yas Meza MD Work Phone: [facility] Start: 03-02-2022 Telephone encounter Shwetha Rodas ([facility]) Gastroenterology Comment on above: Appointment Start: 02-18-2022 End: 02-19-2022 ambulatory SHAIKH Nirali GUO Facility:[facility] Immunizations Immunization Date Immunization Notes Care Provider Fa [facility] 11-25-2022 measles, mumps and rubella virus vaccine Reeves SALAM [facility] 11-23-2022 tetanus toxoid, reduced diphtheria toxoid, and acellular pertussis vaccine, adsorbed Reeves SALAM [facility] 06-04-2021 COVID-19 vaccine, vector-nr, [id number], PF, 0.5 mL Reeves SALAM [facility] 03-14-2014 hepatitis A vaccine, adult dosage Reeves SALAM [facility] 03-14-2014 hepatitis B vaccine, adult dosage Reeves SALAM [facility] 11-12-2013 hepatitis B vaccine, adult dosage Reeves SALAM [facility] 09-06-2013 hepatitis A vaccine, adult dosage Reeves SALAM [facility] 09-06-2013 hepatitis B vaccine, adult dosage Reeves SALAM [facility] 08-08-2010 influenza virus vaccine, unspecified formulation [facility] Work Phone: NEGATED: Highlighted row has not occurred!11-07-2023 influenza virus vaccine, unspecified formulation Vitaly Stauffer [facility] NEGATED: Highlighted row has not occurred!05-13-2022 influenza virus vaccine, unspecified formulation Leandro BILL [facility] NEGATED: Highlighted row has not occurred!09-15-2021 influenza virus vaccine, unspecified formulation Leandro BILL [facility] Medications Current Medications Medication Drug Class(es) Dates [...] # 90 tab(s), Refills(s) 3, Pharmacy: [facility] [id number], 160, cm, 01/18/24 10:59:00 EDT, Height/Length Dosing, 86, kg, 01/18/24 10:59:00 EDT, Weight Dosing Start Date: 01/18/24 Stop Date: 01/12/25 Status: Ordered Start: 10-14-2022 End: 04-12-2023 take 0.5 tablet by mouth every other day fenofibrate 145 mg Tab 1/2 tab(s), Oral, Every other day, X 90 day(s), # 90 tab(s), Refills(s) 1, Pharmacy: [facility] [id number], 160, cm, 05/13/22 13:20:00 EDT, Height/Length Dosing, 76.6, kg, 05/13/22 13:20:00 EDT, Weight Dosing Start Date: 10/14/22 Stop Date: 04/12/23 Status: Ordered Start: 09-15-2021 take 0.5 tablet by m outh once daily fenofibrate 145 mg Tab 1/2 tab(s), Oral, Daily, # 30 tab(s), Refills(s) 4, Pharm[place] [facility] [id number], 160, cm, 09/15/21 14:38:00 EST, Height/Length Dosing, 75.6, kg, 09/15/21 14:38:00 EST, Weight Dosing Start Date: 09/15/21 Status: Ordered Start: 08-18-2021 take 1 tablet by sara th once daily fenofibrate nanocrystallized (TRICOR) 145 mg tablet TAKE 1 TABLET BY MOUTH EVERY DAY 30 tablet 11 08/18/2021 Active Comment on above: TAKE 1 TABLET BY SARA TH EVERY DAY 1 ml HYDROmorphone hydrochloride 1 mg/ml cartridge (2 sources) Opioid Agonist Start: 01-19-2024 0.5 mg, intravenous, Every 5 min PRN, pain severe (7-10), first line, Starting on Malloyr 01/19/24 at 0958, Recovery (only), Max total [...] Daily, # 30 tab(s), Refills(s) 0, Pharmacy: [facility], 160, cm, 01/12/23 10:47:00 EDT, Height/Length Dosing, 84.6, kg, 01/12/23 10:47:00 EDT, Weight Dosing Start Date: 01/12/23 Status: Ordered Start: 10-21-2021 End: 10-16-2022 take 1 tablet by mouth once daily Ocaliva 5 mg oral tablet 5 mg = 1 tab(s), Oral, Daily, X 90 day(s), # 90 tab(s), Refills(s) 3, Pharmacy: [facility], 160, cm, 09/15/21 14:38:00 EST, Height/Length Dosing, 75.6, kg, 09/15/21 14:38:00 EST, Weight Dosing Start Date: 10/21/21 Stop Date: 10/16/22 Status: Ordered Start: 09-15-2021 take 0.5 tablet by m outh once daily Ocaliva 5 mg oral tablet 1/2, Oral, Daily, # 15 tab(s), Refills(s) 11, Pharmacy: [facility] [place] [id number], 160, cm, 09/15/21 14:38:00 EST, Height/Length Dosing, [...] O2 Sat Above: 92% polyethylene glycol 3350 57158 mg powder for oral solution (3 sources) [...] day(s), # 60 tab(s), Refills(s) 11, Pharmacy: [facility] [id number], 160, cm, 01/18/24 10:59:00 EDT, Height/Length Dosing, [...] day(s), # 12 cap(s), Refills(s) 3, Pharmacy: [facility] [id number], 160, cm, 05/12/23 13:51:00 EDT, Height/Length Dosing, 83.4, kg, 05/12/23 13:51:00 EDT, Weight Dosing Start Date: 05/12/23 Stop Date: 05/06/24 Status: Ordered Start: 04-18-2023 End: 05-18-2023 Vitamin D 50,000 intl units (1.25 mg) oral capsule 50,000 International_Unit, Oral, qWeek, X 30 day(s), # 4 cap(s), Refills(s) 0, Pharmacy: [facility] [id number], 160, cm, 01/12/23 10:47:00 EDT, Height/Length Dosing, 84.6, kg, 01/12/23 10:47:00 EDT, Weight Dosing Start Date: 04/18/23 Stop Date: 05/18/23 Status: Ordered Start: 09-09-2022 take 1 capsule by mouth once V itamin D 50,000 intl units (1.25 mg) oral capsule See Instructions, 1 cap(s) Oral As Directed tuesday-Tuesday as previously prescribed per Dr. Bill., # 24 cap(s), Refills(s) 1, Pharmacy: [facility] [id number], 160, cm, 05/13/22 13:20:00 EDT, Height/Length Dosing, 76.6, kg, 05/13/22 13:20:00 EDT, Weight Dosing Start Date: 09/09/22 Status: Ordered Start: 09-09-2022 take 1 capsule by mouth once V itamin D 50,000 intl units (1.25 mg) oral capsule See Instructions, 1 cap(s) Oral As Directed tuesday-Tuesday as previously prescribed per Dr. Bill., # 24 cap(s), Refills(s) 1, Pharmacy: [facility] [id number], 160, cm, 05/13/22 13:20:00 EDT, Height/Length Dosing, 76.6, kg, 05/13/22 13:20:00 EDT,... Start Date: 09/09/22 Status: Ordered Start: 09-15-2021 Vitamin D 50,0 00 intl units (1.25 mg) oral capsule 50,000 International_Unit, Oral, As Directed, # 24 cap(s), Refills(s) 0, Pharmacy: [place] [id number], 160, cm, 09/15/21 14:38:00 EST, Height/Length Dosing, [...] Status: Ordered take 1 capsule by mo uth once daily levothyroxine (Tirosint) 112 mcg capsule [...] 1 tablet by sara th once daily. Payers Date Payer Category Payer Unknown BILL KHAN [facility] RAYMUNDO [id number] 2021-Present [phone] [address] [place] [address] Indemnity [id number] .[id number] 2021 Unknown [id number] 1.13.159.2.7.3 .[id number] 2021 Unknown [id number] 1965 Unknown [id number] 2.16.840.1.399075.3.579.2.593 1965 Unknown [id number] 2.16.840.1.072428.3.579.2.593 1965 Unknown [id number] 2.16.840.1.734219.3.579.2.593 1966 Unknown [id number] 2.16.840.1.653946.3.579.2.593 1966 Unknown [id number] 2.16.840.1.462196.3.579.2.593 1966 Unknown [id number] 2.16.840.1.518392.3.579.2.593 1966 Unknown [id number] 2.16.840.1.637672.3.579.2.593 1966 Unknown [id number] 2.16.840.1.059198.3.579.2.124 3 1966 Unknown [id number] 2.16.840.1.865828.3.579.2.124 3 1966 Unknown [id number] 2.16.840.1.297166.3.579.2.124 3 1966 Unknown [id number] 2.16.840.1.979061.3.579.2.124 3 1966 Unknown [id number] 2.16.840.1.889969.3.579.2.124 3 1966 Unknown [id number] 2.16.840.1.286709.3.579.2.124 3 1966 Unknown [id number] 2.16.840.1.499070.3.579.2.124 3 1966 Unknown [id number] 2.16.840.1.191466.3.579.2.124 3 1966 Unknown [id number] 2.16.840.1.675535.3.579.2.727 1966 Unknown [id number] 2.16.840.1.931088.3.579.2.727 1966 Unknown [id number] 2.16.840.1.709518.3.579.2.727 1966 Unknown [id number] 2.16.840.1.149350.3.579.2.727 1966 Unknown [id number] 2.16.840.1.852809.3.579.2.727 1966 Unknown [id number] 2.16.840.1.505072.3.579.2.727 1966 Unknown [id number] 2.16.840.1.465657.3.579.2.124 4 1966 Unknown [id number] 2.16.840.1.593787.3.579.2.124 4 1966 Unknown [id number] 2.16.840.1.839034.3.579.2.124 4 1966 Unknown [id number] 2.16.840.1.185265.3.579.2.124 5 1966 Unknown [id number] 2.16.840.1.843888.3.579.2.124 5 1966 Unknown [id number] 2.16.840.1.040900.3.579.2.124 5 1966 Unknown [id number] 2.16.840.1.088491.3.579.2.124 5 1966 Unknown [id number] 2.16.840.1.627206.3.579.2.124 5 1966 Unknown [id number] 2.16.840.1.323085.3.579.2.124 5 1966 Unknown [id number] 2.16.840.1.773983.3.579.2.124 5 1966 Unknown [id number] 2.16.840.1.614296.3.579.2.124 5 1966 Unknown [id number] 2.16.840.1.117865.3.579.2.124 5 1966 Unknown [id number] 2.16.840.1.848406.3.579.2.124 5 1966 Unknown [id number] 2.16.840.1.199961.3.579.2.124 5 1966 Unknown [id number] 2.16.840.1.201301.3.579.2.124 5 1966 Unknown [id number] 2.16.840.1.880003.3.579.2.124 5 1966 Unknown [id number] 2.16.840.1.644165.3.579.2.125 9 Plan of Treatment Date Care Activity Detail Author Start: 01-12-2033 Screening for malign ant neoplasm of colon [facility] Start: 11-23-2032 DTaP/Tdap/Td Vaccine s (2 - Td or Tdap) DTaP/Tdap/Td Vaccines (2 - Td or Tdap) [facility] Start: 12-29-2030 Screening for malign ant neoplasm of colon [facility] Start: 2026 RSV patient s and/or patients aged 60+ years (1 - 1-dose 60+ series) RSV patients and/or patients aged 60+ years (1 - 1-dose 60+ series) [facility] Start: 03-26-2026 LIPID SCREEN LIPID SCREEN [facility] Start: 12-18-2024 Thyroid stimulating hormone measurement TSH Level [facility] Start: 06-03-2024 Influenza vaccination Influenz a Vaccine (Season Ended) [facility] Start: 05-14-2024 End: 05-14-2024 Patient encounter procedure 05/14/2024 11:20 AM EDT Office Visit [facility] [address] [facility] [place] [id number] [place] [address] Department [place] [id number] [facility] Start: 04-24-2024 End: 04-24-2024 Patient encounter procedure [facility] Start: 04-02-2024 End: 12-24-2024 DBT Breast - bilateral BI mammo bilateral screening tomosynthesis Imaging Routine BRCA2 gene mutation positive Breast cancer screening, high risk patient Expected: 04/02/2024, Expires: 12/24/2024 [facility] Service Area Work Phone: Comment on above: Expected: 04/02/2024 , Expires: 12/24/2024 Start: 03-30-[address] [facility] Start: 03-30-2024 Screening for malign ant neoplasm of breast Mammogram [facility] Start: 03-26-2024 DIABETES SCREEN DIABETES SCREEN [facility] Start: 02-24-2024 End: 02-24-2024 Patient encounter procedure 02/24/2024 11:10 AM EDT Office Visit [facility] [address] [place] [address] [place] [address] Department [place] [address] [facility] Start: 02-20-2024 End: 02-20-2024 Patient encounter procedure 02/20/2024 12:00 PM EDT Office Visit [facility] [address] [facility] [address] [place] [id number] [place] [address] [place] [address] [facility] Start: 01-19-2024 End: 01-19-2024 Admission to same day surgery center 01/19/2024 7:15 AM EDT - 01/19/2024 10:20 AM EDT Surgery [facility] [address] [place] [address] [place] [address] [place] [address] Laparoscopic Bilateral salping-oophorectomy [65725 (CPT )] [facility] [place] Comment on above: Laparoscopic Bilater al salping-oophorectomy [13757 (CPT )] Start: 01-19-2024 End: 01-19-2024 Laparoscopy w/rmvl adnexal structures Salpingo Oophorectomy Laparoscopy BRCA gene mutation positive 01/19/2024 7:15 AM EDT [facility] Start: 01-19-2024 Subsequent hospital visit by physician 01/19/2024 5:45 AM EDT Hospital Encounter [facility] [place] [address] [place] [address] [place] [address] [place] [address] [facility] OR Start: 12-29-2023 End: 12-29-2023 Admission to same day surgery center 12/29/2023 7:15 AM EDT - 12/29/2023 10:25 AM EDT Surgery [facility] [place] [place] [address] [place] [address] [place] [address] [place] [address] Laparoscopic Bilateral salping-oophorectomy [70771 (CPT )] [facility] [place] OR Comment on above: Laparoscopic Bilater al salping-oophorectomy [12353 (CPT )] Start: 12-29-2023 End: 12-29-2023 Laparoscopy w/rmvl adnexal structures Salpingo Oophorectomy Laparoscopy BRCA gene mutation positive 12/29/2023 7:15 AM EDT Virtual [facility] OR Start: 12-29-2023 Subsequent hospital visit by physician 12/29/2023 5:45 AM EDT Hospital Encounter [facility] [place] [place] [address] [place] [phone] [place] [address] [place] [address] [facility] [place] OR Start: 12-21-2023 End: 12-21-2023 Patient encounter procedure [facility] Start: 12-19-2023 End: 12-19-2023 Admission to establishment 12/19/2023 1:45 PM EDT Pre-Admission Testing [facility] [address] [place] [address] [facility] Start: 12-12-2023 End: 12-12-2023 Telemedicine consultation with patient 12/12/2023 2:00 PM EDT Telemedicine Clinical Support [facility] [address] [place] [address] [facility] Start: 12-06-2023 End: 02-04-2025 MG Breast Views BI MR breast vacuum assisted biopsy Imaging Routine Abnormal MRI, breast Mass of lower outer quadrant of right breast Expected: 12/06/2023, Expires: 02/04/2025 [facility] Service Area Work Phone: Comment on above: Expected: 12/06/2023 , Expires: 02/04/2025 Start: 12-06-2023 End: 12-06-2023 Patient encounter procedure 12/06/2023 1:45 PM EST Appointment [facility] [id number] [place] [address] [address] [facility] Start: 12-06-2023 End: 12-06-2023 Patient encounter procedure [facility] Start: 11-24-2023 End: 11-24-2023 Patient encounter procedure 11/24/2023 9:30 AM EST Appointment [address] [place] [address] [facility] Start: 11-07-2023 End: 11-07-2023 Patient encounter procedure 11/07/2023 4:00 PM EST Office Visit [facility] [address] [facility] [address] [place] [address] [place] [address] [place] [address] [facility] Start: 11-07-2023 End: 11-07-2024 Request for Pre-Admission Testing Visit Request for Pre-Admission Testing Visit Procedures Routine BRCA gene mutation positive Expected: 11/07/2023 (Approximate), Expires: 11/07/2024 [facility] Service Area Work Phone: Comment on above: Expected: 11/07/2023 (Approximate), Expires: 11/07/2024 Start: 10-26-2023 End: 12-24-2024 MR Breast - bilateral W contrast IV MR breast bilateral w contrast full protocol Imaging Routine BRCA2 gene mutation positive Breast cancer screening, high risk patient Expected: 10/26/2023, Expires: 12/24/2024 [facility] Work Phone: Comment on above: Expected: 10/26/2023 , Expires: 12/24/2024 Start: 10-18-2023 End: 10-18-2023 Patient encounter procedure 10/18/2023 1:00 PM EST Office Visit [facility] [address] [place] [address] Kely Crain, FILTERING MACHINE TENDER HELPER-TRANSPORTER RADIOLOGY [address] [address] [facility] Start: 10-06-2023 End: 10-06-2023 Patient encounter procedure 10/06/2023 2:00 PM EST Appointment [facility] [address] [place] [address] [place] [address] [facility] Department of [place] [address] [place] [address] [place] [address] Yulia Dorman RN [facility] Start: 10-05-2023 End: 10-05-2024 Endoscopic Ultrasound (Upper) Endoscopic Ultrasound (Upper) Endoscopy Routine 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) Expected: 10/05/2023, Expires: 10/05/2024 [facility] Service Area Work Phone: Comment on above: Expected: 10/05/2023 , Expires: 10/05/2024 Start: 10-05-2023 End: 10-05-2023 Telemedicine consultation with patient 10/05/2023 9:00 AM EST Telemedicine [facility] [address] [facility] 6th [place] [phone] [place] [address] [place] [address] [facility] Start: 06-03-2023 COVID-19 Vaccine ( season) COVID-19 Vaccine ( season) [facility] Start: 06-03-2023 Influenza vaccination [facility] Start: 10-03-2022 DEPRESSION ASSESSMENT DEPRESSION ASS ESSMENT [facility] Start: 06-03-2022 Influenza vaccination C [facility] Start: 10-29-2021 Adult depression screening assessment DEPRESSION SCREENING [facility] Start: 07-30-2021 COVID-19 VACCINE (2 - Booster for Jarvis series) COVID-19 VACCINE (2 - Booster for Jarvis series) [facility] Start: 2016 SHINGRIX VACCINE (1 of 2) SHINGRIX VACCINE (1 of 2) [facility] Start: 2016 Zoster Vaccines (1 of 2) Zoste r Vaccines (1 of 2) [facility] Start: 2011 COLOGUARD (FIT-DNA) COLOGUARD (FIT-D NA) [facility] Start: [address] [facility] Start: 2011 COLORECTAL CANCER SCREENING COLORECTAL CANCER SCREENING [facility] Start: [address] [facility] Start: 2011 FECAL OCCULT BLOOD FECAL OCCULT BLOO D [facility] Start: 2011 [facility] Start: 2008 PAP TESTING PAP TESTING [facility] Start: [address] [facility] Start: 1996 HPV TESTING HPV TESTING [facility] Start: 1987 PAP TESTING PAP TESTING [facility] Start: 1987 Screening for malign ant neoplasm of cervix [facility] Start: 1985 Urine microalbumin profile DTAP,TDAP,TD (1 - Tdap) [facility] Start: 1984 Diabetes mellitus screening Diabetes Screening [facility] Start: 1984 Hepatitis C screening Hepatitis C Sc reening [facility] Start: 1984 HIV SCREENING HIV SCREENING [facility] Start: 1972 PNEUMOCOCCAL (1 - PCV) PNEUMOCOCCAL (1 - PCV) [facility] Start: 1972 Pneumococcal Vaccine : Pediatrics (0 to 5 Years) and At-Risk Patients (6 to 64 Years) (1 of 2 - PCV) Pneumococcal Vaccine: Pediatrics (0 to 5 Years) and At-Risk Patients (6 to 64 Years) (1 of 2 - PCV) [facility] Start: 1966 HIV screening HIV Screening [facility] Start: 1966 Lipid panel Lipid Panel [facility] Start: 1966 Screening for malign ant neoplasm of colon [facility] Start: 1966 Thyroid stimulating hormone measurement TSH Level [facility] Start: 1966 Yearly Adult Physical Yearly Adult P hysical [facility] End: 12-06-2023 MG Breast - unilateral Single view for clip placement BI breast biopsy clip imaging Imaging Routine Abnormal findings on diagnostic imaging of breast Once for 1 Occurrences starting 12/06/2023 until 12/06/2023 [facility] Service Area Work Phone: Comment on above: Once for 1 Occurrenc es starting 12/06/2023 until 12/06/2023 End: 11-24-2023 MR Breast - bilateral W contrast IV [facility] Service Area Work Phone: Comment on above: Once for 1 Occurrenc es starting 11/24/2023 until 11/24/2023 Non-gynecological cytology method study Cytology Consultation (Non-Gynecologic) Pathology and Cytology Timed BRCA gene mutation positive Release Upon Ordering for 1 Occurrences starting 01/19/2024 [facility] Service Area Work Phone: Comment on above: Release Upon Orderin g for 1 Occurrences starting 01/19/2024 Surgical pathology study [facility] Service Area Work Phone: Comment on above: Release Upon Orderin g for 1 Occurrences starting 12/21/2023, 1 completed Surgical pathology study [facility] Work Phone: Comment on above: Release Upon Orderin g for 1 Occurrences starting 01/19/2024, 1 completed End: 05-06-2024 Ultrasound elastography parenchyma US ELASTOGRAPHY LIVER Radiology Routine Primary biliary cholangitis (HCC) 1 Occurrences starting 2023 until 05/06/2024 [facility] Work Phone: Comment on above: 1 Occurrences starti ng 2023 until 05/06/2024 End: 05-06-2024 US ABD RIGHT UPPER QUADRANT US ABD RIGHT UPPER QUADRANT Radiology Routine Primary biliary cholangitis (HCC) 1 Occurrences starting 2023 until 05/06/2024 [facility] Work Phone: Comment on above: 1 Occurrences starti ng 2023 until 05/06/2024 [facility] Problems Active Problems Problem Classification Problem Date [...] Episodic Unclassified (20 sources) Onset: 09-08-2023 09-08-2023 Procedures Date Procedure Procedure Detail Performing Clinician Start: 01-19-2024 DISCHARGE PATIENT MINOO HERNANDEZ Start: 01-19-2024 FOLLOW UP WITH PROVIDER MINOO HERNANDEZ Start: 01-19-2024 ADULT DISCHARGE DIET MINOO HERNANDEZ Start: 01-19-2024 DISCHARGE ACTIVITY MINOO HERNANDEZ Start: 01-19-2024 NOTIFY PROVIDER (DO NOT PROMPT FOR PARAMETERS) MINOO HERNANDEZ Start: 01-19-2024 PULSE OXIMETRY, CONTINUOUS MINOO HERNANDEZ Start: 01-19-2024 SURGICAL PATHOLOGY EXAM MINOO HERNANDEZ Start: 01-19-2024 CYTOLOGY CONSULTATION (NON-GYNECOLOGIC) MINOO HERNANDEZ Start: 01-19-2024 PULSE OXIMETRY, CONTINUOUS Vikram velazco [...] BI MR BREAST VACUUM ASSISTED BIOPSY MIMI GARNICAROSETTA Start: 12-21-2023 SURGICAL PATHOLOGY EXAM KELY CRAIN Start: 12-21-2023 Diagnostic mammography computer-aided detcj uni Kely Becerra Paras FILTERING MACHINE TENDER HELPER-TRANSPORTER RADIOLOGY Work Phone: Start: 12-21-2023 Bx breast w/device 1st lesion magnetic res guid Kely Mariam Crain FILTERING MACHINE TENDER HELPER-TRANSPORTER RADIOLOGY Work Phone: Start: 12-19-2023 CBC panel - [...] 12-06-2023 BI US BREAST LIMITED RIGHT KELY THOMPSON CK Start: 12-06-2023 BI BREAST BIOPSY CLIP IMAGING KELY GARCIA Start: 12-06-2023 Ultrasound elastography first target lesion Kely Mariam Crain FILTERING MACHINE TENDER HELPER-TRANSPORTER RADIOLOGY Work Phone: Start: 11-24-2023 BI MR BREAST BILATERAL WITH CONTRAST FULL PROTOCOL KELY CRAIN Start: 11-24-2023 Mri breast without&with contrast w/cad bilateral Kely Mariam Crain FILTERING MACHINE TENDER HELPER-TRANSPORTER RADIOLOGY Work Phone: Start: 11-21-2023 BI TRANSFER OF OUTSIDE FILMS MINOO AVILES NG Start: 11-21-2023 End: 11-21-2023 Study Interpretation of outside study Kely Crain FILTERING MACHINE TENDER HELPER-TRANSPORTER [employer]IOLOG[employer] Work Phone: Start: 11-07-2023 CASE REQUEST OPERATING [...] Mri Start: 03-25-2021 End: 03-25-2021 Mammography Yas eMza MD Work Phone: Start: 12-29-2020 Colonoscopy Vance Baires MD Work Phone: Start: 12-29-2020 Colonoscopy [employer] Start: 10-29-2020 Adult depression screening assessment Shwetha Rodas Appendectomy [facility] section [facility] Tonsillectomy and adenoidectomy [facility] Results Test Name Value Interpretation Reference Range Facility Calcitriolon 02-24-2024 1,25-dihydroxyvitamin D3 [Mass/Vol] 73.7 pg/mL Normal 19.9-79.3 [facility] Comment on above: Result Comment: INTE RPRETIVE INFORMATION: Vitamin D, 1,25-Dihydroxy This test is primarily indicated during patient evaluation for hypercalcemia and renal failure. A normal result does not rule out Vitamin D deficiency. The recommended test for diagnosing Vitamin D deficiency is Vitamin D 25-hydroxy. Performed By: [email or web address] [address] [place] [id number] Pain Management Nurse Practitioner: Ronal Sanchez MD, PhD CLIA Number: [id number] Performed By: #### 1 649-3 ####GRAYSONTAE BETANCOURT (BEAKER) ([id number])500 [place] [address] Comprehensive metabolic 2000 panelon 02-24-2024 Albumin BCP dye [Mass/Vol] 4.4 g/dL Normal 3.4-5.0 [facility] Comment on above: Performed By: #### 2 4323-8 ####CONSTANZA Moore ([id number])[facility] ([facility])[address] [place] [address] ALP [Catalytic activity/Vol] 158 U/L High 33-110 [facility] Comment on above: Performed By: #### 2 4323-8 ####CONSTANZA Moore ([id number])[facility] ([facility])[address] [place] [address] ALT With P-5'-P [Catalytic activity/Vol] 45 U/L Normal 7-45 [facility] Comment on above: Result Comment: Suzanne ents treated with Sulfasalazine may generate falsely decreased results for ALT. Performed By: #### 2 4323-8 ####CONSTANZA Moore ([id number])[facility] ([facility])[address] [place] [address] Anion gap [Moles/Vol] 15 mmol/L Normal 10-20 [facility] Comment on above: Performed By: #### 2 4323-8 ####CONSTANZA Moore ([id number])[facility] ([facility])[address] [place] [address] AST With P-5'-P [Catalytic activity/Vol] 29 U/L Normal 9-39 [facility] Comment on above: Performed By: #### 2 4323-8 ####CONSTANZA Moore ([id number])[facility] ([facility])[address] [place] [address] Bilirubin [Mass/Vol] 0.4 mg/dL Normal 0.0-1.2 [facility] Comment on above: Performed By: #### 2 4323-8 ####CONSTANZA EDWARDSER L ([id number])[facility] ([facility])[address] [place] [address] Calcium [Mass/Vol] 9.2 mg/dL Normal 8.6-10.6 [facility] Comment on above: Performed By: #### 2 4323-8 ####CONSTANZA VARGHESEMOTZER L ([id number])[facility] ([facility])[address] [place] [address] Chloride [Moles/Vol] 101 mmol/L Normal 98-107 [facility] Comment on above: Performed By: #### 2 4323-8 ####CONSTANZA EDWARDSER L ([id number])[facility] ([facility])[address] [place] [address] CO2 [Moles/Vol] 26 mmol/L Normal 21-32 [facility] Comment on above: Performed By: #### 2 4323-8 ####CONSTANZA EDWARDSER L ([id number])[facility] ([facility])[address] [place] [address] Creatinine [Mass/Vol] 0.88 mg/dL Normal 0.50-1.05 [facility] Comment on above: Performed By: #### 2 4323-8 ####CONSTANZA VARGHESEMOTZER L ([id number])[facility] ([facility])[address] [place] [address] Glomerular filtration rate/1.73 sq M.predicted 77 mL/min/1.73m*2 Normal >60 [facility] Comment on above: Result Comment: Calc ulations of estimated GFR are performed using the 2020 CKD-EPI Study Refit equation without the race variable for the IDMS-Traceable creatinine methods. https://jasn.asnjournals.org/content/early//ASN.72006 85411 Performed By: #### 2 4323-8 ####CONSTANZA EDWARDS L ([id number])[facility] ([facility])[address] [facility] [place] [address] Glucose [Mass/Vol] 101 mg/dL High 74-99 [facility] Comment on above: Performed By: #### 2 4323-8 ####CONSTANZA Moore ([id number])[facility] ([facility])[address] [place] [address] Potassium [Moles/Vol] 4.6 mmol/L Normal 3.5-5.3 [facility] Comment on above: Performed By: #### 2 4323-8 ####CONSTANZA Moore ([id number])[facility] ([facility])[address] [place] [address] Protein [Mass/Vol] 7.7 g/dL Normal 6.4-8.2 [facility] Comment on above: Performed By: #### 2 4323-8 ####CONSTANZA Moore ([id number])[facility] ([facility])[address] [place] [address] Sodium [Moles/Vol] 137 mmol/L Normal 136-145 [facility] Comment on above: Performed By: #### 2 4323-8 ####CONSTANZA Moore ([id number])[facility] ([facility])[address] [place] [address] Urea nitrogen [Mass/Vol] 18 mg/dL Normal 6-23 [facility] Comment on above: Performed By: #### 2 4323-8 ####CONSTANZA Moore ([id number])[facility] ([facility])[address] [place] [address] Parathyrin.intacton 02-24-20 24 Parathyrin.intact [Mass/Vol] 42.2 pg/mL Normal 18.5-88.0 [facility] Comment on above: Performed By: #### 2 731-8 ####CONSTANZA Moore ([id number])[facility] ([facility])[address] [place] [address] Phosphateon 02-24-2024 Phosphate [Mass/Vol] 3.6 mg/dL Normal 2.5-4.9 [facility] Comment on above: Result Comment: The performance characteristics of phosphorus testing in heparinized plasma have been validated by the individual laboratory site where testing is performed. Testing on heparinized plasma is not approved by the FDA; however, such approval is not necessary. Performed By: #### 2 777-1 ####CONSTANZA Moore ([id number])[facility] ([facility])[address] [place], [place] [address] Non-obstetrics/gynecology nurse cytology studyon Non-gynecological cytology method study Pathology report.total SEE COMMENT Non-gynecologic Cytology Case: [id number] Authorizing Provider: Minoo Hernandez MD Collected: 01/19/2024 0840 Ordering Location: [facility] Received: 01/19/2024 [facility] [place] Pathologist: Sherry Watson MD Specimen: PELVIC WASHING, Pelvic Washings Path report.final diagnosis SEE COMMENT A. PELVIC WASHING - Pelvic Washings No malignant cells identified Laboratory comment SEE COMMENT Slide(s) initially screened by ANTOLIN Martínez at [facility] [id number] [place] [phone] By the signature on this report, the [...] Block) A1-1 Pap Stain NGYN ThinPrep Normal [facility] Comment on above: Order Comment: Pre-o p diagnosis:BRCA gene mutation positive [Z15.01, Z15.09] Physician Referralon 024 Physician Referral [phone] [id number] 0TIFF Normal [facility] Surgical pathology studyon 0 01-19-2024 Surgical pathology study Pathology report.total SEE COMMENT Surgical Pathology Case: [id number] Authorizing Provider: Minoo Hernandez MD Collected: 01/19/2024 0930 Ordering Location: [facility] Received: 01/19/2024 1053 [facility] [place] Pathologist: William Hale MD Specimen: FALLOPIAN [...] #2 (Entire Tube with Soft tissue) Normal [facility] Comment on above: Order Comment: Pre-o p diagnosis:BRCA gene mutation positive [Z15.01, Z15.09] Ambulatory Visit Summaryon 0 01-18-2024 Ambulatory Visit Summary NITHYA DE DIOS :1965 Visit Date:01/18/2024 Ambulatory Visit Instructions Your Diagnosis Primary biliary cholangitis Vitamin D deficiency Osteopenia Your Care Team Attending Physician - Eh URIAS, Vitaly Hernandes Primary Care Physician - SHAIKH GUO MD This Is Your Medications List fenofibrate (fenofibrate [...] Someone Will Contact You Regarding These Appointments [facility] External Ambulatory Referral, Gastroenterology, 01/18/24 11:28:00 EDT, Primary biliary cholangitis Medications What How Much When Why Instructions New fenofibrate (fenofibrate 145 mg Tab) 1/2 tab(s) By Mouth Every other day Primary biliary cholangitis Duration: 90 Days Refills: 3 Pickup at [facility] [id number] New ursodiol (ursodiol 500 mg Tab) 1 Tablets By Mouth 2 times a day Duration: 30 Days Refills: 11 with food Pickup at [facility] [phone] Unchanged alendronate (alendronate 10 mg Tab) 1 [...] physician if questions or concerns Pharmacy Information [facility] [phone]: [address] [place], [place] [id number] [phone] Allergies sulfa drugs (allergy) Problems Ongoing - [...] you for choosing us for your care. [facility] Ambulatory Visit Summary NITHYA DE DIOS :1965 Visit Date:01/18/2024 Ambulatory Visit Instructions Your Diagnosis Primary biliary cholangitis Vitamin D deficiency Osteopenia Your Care Team Attending Physician - Eh URIAS, Vitaly Hernandes Primary Care Physician - SHAIKH GUO MD This Is Your Medications List fenofibrate (fenofibrate [...] EDT With: Eh URIAS, Vitaly Hernandes Where: [facility] Gastroenterology Office/Clin ic Noteon 01-18-2024 Gastroenterology Office/Clinic [...] first with Dr. Meza given his the railcar mechanic taking care of her She also tested [...] Repeat colonoscopy is scheduled [facility] 10/06/23 @ [facility]: Impression: The pancreatic parenchyma was visualized in [...] and st (more content not included)... Normal [facility] Comment on above: Result Comment: Elec tronically Signed By: Eh URIAS, Vitaly Hernandes\.br\Date and Time Signed: 01/18/24 11:48 EDT\.br\Electronically Co-Signed By: Verenice Hair MA S\.br\Date and Time Co-Signed: 01/18/24 11:38 EDT Blood type and Indirect anti body screen panel (Bld)on 01-16-2024 ABO group Nom (Bld) O Normal [facility] Comment on above: Performed By: #### 3 4532-2 ####CONSTANZA Moore ([id number])[facility] ([facility])[address] [place] [place] [address] Blood group antibody screen Ql Negative [facility] Comment on above: Performed By: #### 3 4532-2 ####CONSTANZA Moore ([id number])[facility] ([facility])[address] [facility] [place] [address] D Ag Ql (Bld) Positive [facility] Comment on above: Performed By: #### 3 4532-2 ####CONSTANZA Moore ([id number])[facility] ([facility])[address] [place] [address] CBC W Auto Differential pane l (Bld)on 01-16-2024 Basophils (Bld) [#/Vol] 0.04 x10*3/uL Normal 0.00-0.10 [facility] Comment on above: Performed By: #### 5 7021-8 #### VERONICA CHERRY ([id number]) [facility] ([facility]) [address] [place] [address] Basophils/100 WBC (Bld) 0.7 % Normal 0.0-2.0 [facility] Comment on above: Performed By: #### 5 7021-8 #### VERONICA CHERRY ([id number]) [facility] ([facility]) [address] [place] [address] Eosinophils (Bld) [#/Vol] 0.18 x10*3/uL Normal 0.00-0.70 [facility] Comment on above: Performed By: #### 5 7021-8 #### VERONICA CHERRY ([id number]) [facility] ([facility]) [address] [place] [address] Eosinophils/100 WBC (Bld) 3.1 % Normal 0.0-6.0 [facility] Comment on above: Performed By: #### 5 70-8 #### VERONICA CHERRY ([id number]) [facility] ([facility]) [address] [place] [address] Erythrocyte distribution width (RBC) [Ratio] 13.0 % Normal 11.5-14.5 [facility] Comment on above: Performed By: #### 5 7021-8 #### VERONICA CHERRY ([id number]) [facility]) [address] [place] [address] Hematocrit (Bld) [Volume fraction] 36.5 % Normal 36.0-46.0 [facility] Comment on above: Performed By: #### 5 7021-8 #### VERONICA CHERRY ([id number]) [facility] (EMC) [address] [place] [address] 49282 Hemoglobin (Bld) [Mass/Vol] 12.0 g/dL Normal 12.0-16.0 [facility] Comment on above: Performed By: #### 5 7021-8 #### VERONICA CHERRY ([id number]) [facility] ([facility]C) [address] [place] [address] 99611 Immature granulocytes (Bld) [#/Vol] 0.02 x10*3/uL Normal 0.00-0.70 [facility] Comment on above: Performed By: #### 5 7021-8 #### VERONICA CHERRY ([id number]) [facility] ([facility]) [address] [place] [address] 59505 Immature granulocytes/100 WBC (Bld) 0.3 % Normal 0.0-0.9 [facility] Comment on above: Result Comment: Rea ture Granulocyte Count (IG) includes promyelocytes, myelocytes and metamyelocytes but does not include bands. Percent differential counts (%) should be interpreted in the context of the absolute cell counts (cells/UL). Performed By: #### 5 7021-8 #### VERONICA CHERRY ([id number]) [facility] ([facility]) [address] [place] [address] 37837 Lymphocytes (Bld) [#/Vol] 2.27 x10*3/uL Normal 1.20-4.80 [facility] Comment on above: Performed By: #### 5 7021-8 #### VERONICA CHERRY ([id number]) [facility] ([facility]) [address] [place] [address] 77958 Lymphocytes/100 WBC (Bld) 38.5 % Normal 13.0-44.0 [facility] Comment on above: Performed By: #### 5 7021-8 #### VERONICA CHERRY ([id number]) [facility] ([facility]) [address] [place] [address] 39551 MCH (RBC) [Entitic mass] 29.6 pg Normal 26.0-34.0 [facility] Comment on above: Performed By: #### 5 7021-8 #### VERONICA CHERRY ([id number]) [facility] ([facility]) [address] [place] [address] 66651 MCHC (RBC) [Mass/Vol] 32.9 g/dL Normal 32.0-36.0 [facility] Comment on above: Performed By: #### 5 7021-8 #### VERONICA CHERRY ([id number]) [facility] ([facility]) [address] [place] [address] 46030 MCV (RBC) [Entitic vol] 90 fL Normal 80-100 [facility] Comment on above: Performed By: #### 5 7021-8 #### VERONICA CHERRY ([id number]) [facility] (EM) [address] [place] [address] 03056 Monocytes (Bld) [#/Vol] 0.57 x10*3/uL Normal 0.10-1.00 [facility] Comment on above: Performed By: #### 5 7021-8 #### VERONICA CHERRY ([id number]) [facility] ([facility]) [address] [place] [address] 56664 Monocytes/100 WBC (Bld) 9.7 % Normal 2.0-10.0 [facility] Comment on above: Performed By: #### 5 7021-8 #### VERONICA CHERRY ([id number]) [facility] ([facility]) [address] [place] [address] 62697 Neutrophils (Bld) [#/Vol] 2.82 x10*3/uL Normal 1.20-7.70 [facility] Comment on above: Result Comment: Perc ent differential counts (%) should be interpreted in the context of the absolute cell counts (cells/uL). Performed By: #### 5 7021-8 #### VERONICA CHERRY ([id number]) [facility] ([facility]) [address] [place] [address] 76913 Neutrophils/100 WBC (Bld) 47.7 % Normal 40.0-80.0 [facility] Comment on above: Performed By: #### 5 7021-8 #### VERONICA CHERRY ([id number]) [facility] ([facility]) [address] [place] [address] 84262 Nucleated RBC/100 WBC (Bld) [Ratio] 0.0 /100 WBCs Normal 0.0-0.0 [facility] Comment on above: Performed By: #### 5 7021-8 #### VERONICA CHERRY ([id number]) [facility] ([facility]) [address] [place] [address] 88183 Platelets (Bld) [#/Vol] 305 x10*3/uL Normal 150-450 [facility] Comment on above: Performed By: #### 5 7021-8 #### VERONICA BERRIOS RIO CALI ([id number]) [facility] ([facility]C) [address] [place] [address] RBC (Bld) [#/Vol] 4.06 x10*6/uL Normal 4.00-5.20 [facility] Comment on above: Performed By: #### 5 7021-8 #### VERONICA AGUSTINA RIGGS CALI ([id number]) [facility] ([facility]) [address] [place] [address] 49971 WBC (Bld) [#/Vol] 5.9 x10*3/uL Normal 4.4-11.3 [facility] Comment on above: Performed By: #### 5 7021-8 #### VERONICA AGUSTINA LEIVA ([id number]) [facility] ([facility]) [address] [place] [address] 41653 Calcidiolon 01-16-2024 25-hydroxyvitamin D3 [Mass/Vol] 58 ng/mL Normal 30-100 [facility] Comment on above: Order Comment: Defic iency: < 20 ng/mlInsufficiency: 20-29 ng/mlSufficiency: 30-100 ng/mlThis assay accurately quantifies the sum of Vitamin D3, 25-Hydroxy and Vitamin D2,25-Hydroxy. Performed By: #### 1 989-3 ####VERONICA PARTH CALI ([id number])[facility] (EMC)[address] [place] [address] 87186 Cancer Ag 19-9on 01-16-2024 Cancer Ag 19-9 Qn 29.07 [arb'U]/mL Normal <35.00 U [facility] Comment on above: Order Comment: CA 19 -9 testing is performed by chemiluminescent immunoassay using the Visiogen. Values obtained with different analytic methods cannot [...] Performed By: #### 2 4108-3 ####CONSTANZA Moore ([id number])[facility] ([facility])[address] [place] [address] 64317 Coagulation surface inducedo n 01-16-2024 aPTT Coag (PPP) [Time] 35 s Normal 27-38 [facility] Comment on above: Order Comment: The A PTT is no longer used for monitoring Unfractionated Heparin Therapy. For monitoring Heparin Therapy, use the Heparin Assay. Performed By: #### 1 4979-9 ####VERONICA CHERRY ([id number])[facility] ([facility])[address] [place] [address] 96892 Coagulation tissue factor in ducedon 01-16-2024 PT Coag (PPP) [Time] 10.8 s Normal 9.8-12.8 [facility] Comment on above: Performed By: #### 5 902-2 ####VERONICA CHERRY ([id number])[facility] ([facility])[address] [place] [address] 96142 Comprehensive metabolic 2000 panelon 01-16-2024 Albumin BCP dye [Mass/Vol] 4.3 g/dL Normal 3.4-5.0 [facility] Comment on above: Performed By: #### 2 4323-8 ####VERONICA CHERRY ([id number])[facility] ([facility])[address] [place] [address] ALP [Catalytic activity/Vol] 132 U/L High 33-110 [facility] Comment on above: Performed By: #### 2 4323-8 ####VERONICA CHERRY ([id number])[facility] ([facility])[address] [place] [address] 70865 ALT With P-5'-P [Catalytic activity/Vol] 36 U/L Normal 7-45 [facility] Comment on above: Result Comment: Suzanne ents treated with Sulfasalazine may generate falsely decreased results for ALT. Performed By: #### 2 4323-8 ####VERONICA CHERRY ([id number])[facility] (EMC)[address] [address] Anion gap [Moles/Vol] 11 mmol/L Normal 10-20 [facility] Comment on above: Performed By: #### 2 4323-8 ####VERONICA CHERRY ([id number])[facility] ([facility]C)[address] [facility] [address] AST With P-5'-P [Catalytic activity/Vol] 25 U/L Normal 9-39 [facility] Comment on above: Performed By: #### 2 4323-8 ####VERONICA CHERRY ([id number])[facility] ([facility]C)[address] [place] [address] Bilirubin [Mass/Vol] 0.5 mg/dL Normal 0.0-1.2 [facility] Comment on above: Performed By: #### 2 4323-8 ####VERONICA CHERRY ([id number])[facility] ([facility])[address] [facility] [place] [address] Calcium [Mass/Vol] 9.3 mg/dL Normal 8.6-10.3 [facility] Comment on above: Performed By: #### 2 4323-8 ####MIRACLEIBVANIA CHERRY ([id number])[facility] ([facility])[address] [place] [address] Chloride [Moles/Vol] 102 mmol/L Normal 98-107 [facility] Comment on above: Performed By: #### 2 4323-8 ####VERONICA CHERRY ([id number])[facility] ([facility])[address] [place] [address] CO2 [Moles/Vol] 29 mmol/L Normal 21-32 [facility] Comment on above: Performed By: #### 2 4323-8 ####VERONICA CHERRY ([id number])[facility] ([facility])[address] [place] [address] Creatinine [Mass/Vol] 0.75 mg/dL Normal 0.50-1.05 [facility] Comment on above: Performed By: #### 2 4323-8 ####VERONICA CHERRY ([id number])[facility] (EM)[address] [place] [address] GFR/1.73 sq M.predicted MDRD (S/P/Bld) [Vol rate/Area] mL/min/{1.73_m2} Normal >60 [facility] Comment on above: Result Comment: Calc ulations of estimated GFR are performed using the 2020 CKD-EPI Study Refit equation without the race variable for the IDMS-Traceable creatinine methods. https://jasn.asnjournals.org/content/early/ASN.63839 19641 Performed By: #### 2 4323-8 ####VERONICA CHERRY ([id number])[facility] ([facility])[address] [place] [address] 58358 Glucose [Mass/Vol] 95 mg/dL Normal 74-99 [facility] Comment on above: Performed By: #### 2 4323-8 ####VERONICA CHERRY ([id number])[facility] ([facility])[address] [place] [address] Potassium [Moles/Vol] 4.2 mmol/L Normal 3.5-5.3 [facility] Comment on above: Performed By: #### 2 4323-8 ####VERONICA CHERRY ([id number])[facility] ([facility])[address] [place] [address] Protein [Mass/Vol] 7.4 g/dL Normal 6.4-8.2 [facility] Comment on above: Performed By: #### 2 4323-8 ####VERONICA CHERRY ([id number])[facility] ([facility])[address] [place] [address] Sodium [Moles/Vol] 138 mmol/L Normal 136-145 [facility] Comment on above: Performed By: #### 2 4323-8 ####VERONICA AGUSTINA RIGGS CALI ([id number])[facility] ([facility])[address] [place] [address] 56750 Urea nitrogen [Mass/Vol] 17 mg/dL Normal 6-23 [facility] Comment on above: Performed By: #### 2 4323-8 ####VERONICA AGUSTINA RIGGS CALI ([id number])[facility] ([facility])[address] [place] [address] 49305 PT Coag (PPP) [Time]on 01-15 INR Coag (PPP) [Relative time] 1.0 Normal 0.9-1.1 [facility] Comment on above: Performed By: #### 5 902-2 ####VERONICA BERRIOS RIO CALI ([id number])[facility] ([facility])[address] [place] [address] 49860 BI BREAST BIOPSY CLIP IMAGIN Tru 12-21-2023 [...] PM -------- ORIGINAL REPORT -------- Dictation workstation: [id number] Interpreted By: Jasvir Bass, and Yessi Sweeney STUDY: BI MR BREAST VACUUM ASSISTED BIOPSY; BI BREAST BIOPSY CLIP IMAGING; 12/21/2023 10:21 am; 12/21/2023 10:31 am ACCESSION NUMBER(S): [id number]; [id number] ORDERING CLINICIAN: KELY CRAIN INDICATION: The patient's [...] Patel Dickson, a radiology nurse and an wood technologist were present. PROCEDURE: The patient was placed on the MRI scanner within the breast coil with mild compression on the right breast. T1 weighted fat saturation axial images were obtained before and after administration of 17 mL intravenous Dotarem. The enhancing area of concern was identified. The [employer] software program was used to localize the [...] Jasvir Bass 12/21/2023 11:09 AM Dictation workstation: [id number] [facility] BI MR BREAST VACUUM ASSISTED BIOPSYon [...] PM -------- ORIGINAL REPORT -------- Dictation workstation: [id number] Interpreted By: Jasvir Bass and Abuhamdeh Imran STUDY: BI MR BREAST VACUUM ASSISTED BIOPSY; BI BREAST BIOPSY CLIP IMAGING; 12/21/2023 10:21 am; 12/21/2023 10:31 am ACCESSION NUMBER(S): [id number]; [id number] ORDERING CLINICIAN: KELY CRAIN INDICATION: The patient's [...] Patel Dickson, a radiology nurse and an wood technologist were present. PROCEDURE: The patient was placed on the MRI scanner within the breast coil with mild compression on the right breast. T1 weighted fat saturation axial images were obtained before and after administration of 17 mL intravenous Dotarem. The enhancing area of concern was identified. The [employer] software program was used to localize the [...] Jasvir Bass 12/21/2023 11:09 AM Dictation workstation: [id number] [facility] MG Breast - unilateral Singl e view for clip placementon 12-21-2023 Radiology Study observation (narrative) [facility] Work Phone: MG Breast Viewson 12-21-2023 Radiology Study observation (narrative) [facility] Work Phone: No Panel Informationon 12-20 Status post MRI guid ed vacuum-assisted core needle biopsy of right breast mass followed by placement of tissue marker. Pathology is pending. POST PROCEDURE MAMMOGRAM FOR MARKER PLACEMENT. I personally reviewed the images/study and I agree with Dr. Patel Dickson and the findings as stated. MACRO: None Signed by: Jasvir Bass 12/21/2023 11:09 AM Dictation workstation: [id number] Interpreted By: Jasvir Bass, and Yessi Sweeney STUDY: BI MR BREAST VACUUM ASSISTED BIOPSY; BI BREAST BIOPSY CLIP IMAGING; 12/21/2023 10:21 am; 12/21/2023 10:31 am ACCESSION NUMBER(S): [id number]; [id number] ORDERING CLINICIAN: KELY CRAIN INDICATION: The patient's [...] Patel Dickson, a radiology nurse and an wood technologist were present. PROCEDURE: The patient was placed on the MRI scanner within the breast coil with mild compression on the right breast. T1 weighted fat saturation axial images were obtained before and after administration of 17 mL intravenous Dotarem. The enhancing area of concern was identified. The Well[employer] software program was used to localize the [...] Jasvir Bass MD - 12/21/2023 Interpreted By: Jasvir Bass and Abuhamdeh Imran STUDY: BI MR BREAST VACUUM ASSISTED BIOPSY; BI BREAST BIOPSY CLIP IMAGING; 12/21/2023 10:21 am; 12/21/2023 10:31 am ACCESSION NUMBER(S): [id number]; [id number] ORDERING CLINICIAN: KELY CRAIN INDICATION: The patient's [...] Patel Dickson, a radiology nurse and an wood technologist were present. PROCEDURE: The patient was placed on the MRI scanner within the breast coil with mild compression on the right breast. T1 weighted fat saturation axial images were obtained before and after administration of 17 mL intravenous Dotarem. The enhancing area of concern was identified. The [employer] software program was used to localize the [...] Jasvir Bass 12/21/2023 11:09 AM Dictation workstation: [id number] [facility] Work Phone: No Panel InformationOrdered By: Jasvir Bass on 12-21-2023 [facility] Work Phone: Surgical pathology studyon 0 12-21-2023 Surgical pathology study Pathology report.total SEE COMMENT Surgical Pathology Case: [id number] Authorizing Provider: Kely Crain, Collected: 12/21/2023 0945 FILTERING MACHINE TENDER HELPER-TRANSPORTER RADIOLOGY Ordering Location: [facility] Received: 12/21/2023 1036 Pathologist: Paul Rothman MD [...] determined by the Department of Pathology at [facility]. The FDA does not require this test to go through premarket FDA review. This test is used for clinical purposes. It should not be regarded as investigational or for research. This laboratory is certified under the Clinical Laboratory Improvement Amendments (CLIA) as qualified to perform high complexity clinical laboratory testing. The assays were performed with appropriate positive and negative controls which stained appropriately. [facility] Comment on above: Order Comment: Right breast mass MRI core bipsy Blood type and Indirect anti body screen panel (Bld)on 12-19-2023 ABO group Nom (Bld) O Normal [facility] Comment on above: Performed By: #### 3 4532-2 #### CONSTANZA Moore ([id number]) [facility] ([facility]) [address] [place] [address] 77727 Blood group antibody screen Ql Negative [facility] Comment on above: Performed By: #### 3 4532-2 #### CONSTANZA Moore ([id number]) [facility] ([facility]) [address] [place] [address] 13039 D Ag Ql (Bld) Positive [facility] Comment on above: Result Comment: 2nd ABO test required. Order and Collect VERAB Performed By: #### 3 4532-2 #### CONSTANZA Moore ([id number]) [facility] ([facility]) [address] [place] [address] 37520 CBC panel Auto (Bld)on 12-18 Erythrocyte distribution width (RBC) [Ratio] 12.9 % Normal 11.5-14.5 [facility] Comment on above: Performed By: #### 5 8410-2 #### CONSTANZA Moore ([id number]) [facility] ([facility]) [address] [place] [address] 51077 Hematocrit (Bld) [Volume fraction] 41.7 % Normal 36.0-46.0 [facility] Comment on above: Performed By: #### 5 8410-2 #### CONSTANZA Moore ([id number]) [facility] ([facility]) [address] [place] [address] 93732 Hemoglobin (Bld) [Mass/Vol] 13.4 g/dL Normal 12.0-16.0 [facility] Comment on above: Performed By: #### 5 8410-2 #### CONSTANZA Moore ([id number]) [facility] ([facility]) [address] [place] [address] MCH (RBC) [Entitic mass] 28.9 pg Normal 26.0-34.0 [facility] Comment on above: Performed By: #### 5 8410-2 #### CONSTANZA Moore ([id number]) [facility] ([facility]) [address] [place] [address] 67000 MCHC (RBC) [Mass/Vol] 32.1 g/dL Normal 32.0-36.0 [facility] Comment on above: Performed By: #### 5 8410-2 #### CONSTANZA Moore ([id number]) [facility] ([facility]) [address] [place] [address] 44876 MCV (RBC) [Entitic vol] 90 fL Normal 80-100 [facility] Comment on above: Performed By: #### 5 8410-2 #### CONSTANZA Moore ([id number]) [facility] ([facility]) [address] [place] [address] 36630 Nucleated RBC/100 WBC (Bld) [Ratio] 0.0 /100 WBCs Normal 0.0-0.0 [facility] Comment on above: Performed By: #### 5 8410-2 #### CONSTANZA Moore ([id number]) [facility] ([facility]) [address] [place] [address] 33087 Platelets (Bld) [#/Vol] 331 x10*3/uL Normal 150-450 [facility] Comment on above: Performed By: #### 5 8410-2 #### CONSTANZA Moore ([id number]) [facility] ([facility]) [address] [place] [address] 45939 RBC (Bld) [#/Vol] 4.64 x10*6/uL Normal 4.00-5.20 [facility] Comment on above: Performed By: #### 5 8410-2 #### CONSTANZA Moore ([id number]) [facility] ([facility]) [address] [place] [address] 00519 WBC (Bld) [#/Vol] 8.1 x10*3/uL Normal 4.4-11.3 [facility] Comment on above: Performed By: #### 5 8410-2 #### CONSTANZA Moore ([id number]) [facility] ([facility]) [address] [place] [address] Comprehensive metabolic 2000 panelon 12-19-2023 Albumin BCP dye [Mass/Vol] 4.5 g/dL Normal 3.4-5.0 [facility] Comment on above: Performed By: #### 2 4323-8 #### CONSTANZA Moore ([id number]) [facility] ([facility]) [address] [place] [address] ALP [Catalytic activity/Vol] 150 U/L High 33-110 [facility] Comment on above: Performed By: #### 2 4323-8 #### CONSTANZA Moore ([id number]) [facility] ([facility]) [address] [place] [address] 04166 ALT With P-5'-P [Catalytic activity/Vol] 50 U/L High 7-45 [facility] Comment on above: Result Comment: Suzanne ents treated with Sulfasalazine may generate falsely decreased results for ALT. Performed By: #### 2 4323-8 #### CONSTANZA Moore ([id number]) [facility] ([facility]) [address] [place] [address] Anion gap [Moles/Vol] 17 mmol/L Normal 10-20 [facility] Comment on above: Performed By: #### 2 4323-8 #### CONSTANZA Moore ([id number]) [facility] ([facility]) [address] [place] [address] AST With P-5'-P [Catalytic activity/Vol] 31 U/L Normal 9-39 [facility] Comment on above: Performed By: #### 2 4323-8 #### CONSTANZA Moore ([id number]) [facility] ([facility]) [address] [place] [address] Bilirubin [Mass/Vol] 0.5 mg/dL Normal 0.0-1.2 [facility] Comment on above: Performed By: #### 2 4323-8 #### CONSTANZA EDWARDS L ([id number]) [facility] ([facility]) [address] [place] [address] Calcium [Mass/Vol] 9.9 mg/dL Normal 8.6-10.6 [facility] Comment on above: Performed By: #### 2 4323-8 #### CONSTANZA VARGHESEMOTZER L ([id number]) [facility] ([facility]) [address] [place] [address] 36594 Chloride [Moles/Vol] 100 mmol/L Normal 98-107 [facility] Comment on above: Performed By: #### 2 4323-8 #### CONSTANZA VARGHESEMOTZER L ([id number]) [facility] ([facility]) [address] [place] [address] CO2 [Moles/Vol] 27 mmol/L Normal 21-32 [facility] Comment on above: Performed By: #### 2 4323-8 #### CONSTANZA EDWARDS L ([id number]) [facility] ([facility]) [address] [place] [address] Creatinine [Mass/Vol] 1.12 mg/dL High 0.50-1.05 [facility] Comment on above: Performed By: #### 2 4323-8 #### CONSTANZA GREENETZER L ([id number]) [facility] ([facility]) [address] [place] [address] 56676 Glomerular filtration rate/1.73 sq M.predicted 57 mL/min/1.73m*2 Low >60 [facility] Comment on above: Result Comment: Calc ulations of estimated GFR are performed using the 2020 CKD-EPI Study Refit equation without the race variable for the IDMS-Traceable creatinine methods. https://jasn.asnjournals.org/content//ASN.87460 07339 Performed By: #### 2 4323-8 #### CONSTANZA GREENETZARABELLA L ([id number]) [facility] ([facility]) [address] [place] [address] Glucose [Mass/Vol] 81 mg/dL Normal 74-99 [facility] Comment on above: Performed By: #### 2 4323-8 #### CONSTANZA Moore ([id number]) [facility] ([facility]) [address] [place] [address] 81737 Potassium [Moles/Vol] 3.9 mmol/L Normal 3.5-5.3 [facility] Comment on above: Performed By: #### 2 4323-8 #### CONSTANZA Moore ([id number]) [facility] ([facility]) [address] [place] [address] 39329 Protein [Mass/Vol] 7.7 g/dL Normal 6.4-8.2 [facility] Comment on above: Performed By: #### 2 4323-8 #### CONSTANZA Moore ([id number]) [facility] ([facility]) [address] [place] [address] 71261 Sodium [Moles/Vol] 140 mmol/L Normal 136-145 [facility] Comment on above: Performed By: #### 2 4323-8 #### CONSTANZA Moore ([id number]) [facility] ([facility]) [address] [place] [address] 25386 Urea nitrogen [Mass/Vol] 14 mg/dL Normal 6-23 [facility] Comment on above: Performed By: #### 2 4323-8 #### CONSTANZA Moore ([id number]) [facility] ([facility]) [address] [place] [address] PT and aPTT panel Coag (PPP) on 12-19-2023 aPTT Coag (PPP) [Time] 36 s Normal 27-38 [facility] Comment on above: Order Comment: The A PTT is no longer used for monitoring Unfractionated Heparin Therapy. For monitoring Heparin Therapy, use the Heparin Assay. Performed By: #### 3 4529-8 #### CONSTANZA Moore ([id number]) [facility] ([facility]) [address] [place] [address] INR Coag (PPP) [Relative time] 1.0 Normal 0.9-1.1 [facility] Comment on above: Order Comment: The A PTT is no longer used for monitoring Unfractionated Heparin Therapy. For monitoring Heparin Therapy, use the Heparin Assay. Performed By: #### 3 4529-8 #### CONSTANZA Moore ([id number]) [facility] ([facility]) [address] [place] [address] PT Coag (PPP) [Time] 11.0 s Normal 9.8-12.8 [facility] Comment on above: Order Comment: The A PTT is no longer used for monitoring Unfractionated Heparin Therapy. For monitoring Heparin Therapy, use the Heparin Assay. Performed By: #### 3 4529-8 #### CONSTANZA Moore ([id number]) [facility] ([facility]) [address] [place], [place] [id number] TSH WITH REFLEX TO FREE T4 I F ABNORMALon 12-19-2023 TSH Qn 1.50 m[IU]/L Normal 0.44-3.98 [facility] Comment on above: Order Comment: TSH t esting is performed using different testing methodology at [facility] than at other [facility]. Direct result comparisons should only be made within the same method. Performed By: #### T HYDS #### CONSTANZA Moore ([id number]) [facility] ([facility]) [address] [place], [place] [id number] BI US BREAST LIMITED RIGHTon 12-06-2023 BI US BREAST LIMITED RIGHT Interpreted By: Lia Bunch and Avery Ross STUDY: BI US BREAST LIMITED RIGHT; 12/06/2023 1:04 pm ACCESSION NUMBER(S): [id number] ORDERING CLINICIAN: KELY CRAIN INDICATION: MRI directed ultrasound of an enhancing right breast mass. BRCA 2 gene mutation. Family history of breast cancer. COMPARISON: Correlation with breast MRI 11/24/2023 and mammogram 03/30/2023. FINDINGS: A targeted ultrasound of the entire lower outer right breast was performed by a registered chronometer repairer and Dr. Garett Quevedo using elastography. An [...] the time of exam and Kely Crain CNP. A message was sent to the referring practitioner at the time of this dictation regarding these critical findings. A pre-procedure form was filled out. Method of Detection: Category Smri - Screening MRI BI-RADS CATEGORY: BI-RADS Category: 4 Suspicious. Recommendation: Surgical Consultation and Biopsy. Recommended Date: Immediate. Laterality: Right. For any future breast imaging appointments, please call [phone]). I personally reviewed the images/study and I agree with the findings as stated by fellow physician, Dr. Garett Quevedo. MACRO: Dr. Garett Quevedo discussed the significance and urgency of this critical finding in person with KELY CRAIN on 12/06/2023 at 12:55 pm. (-RCF-) Findings: See findings. Signed by: Lia Bunch 12/06/2023 2:25 PM Dictation workstation: [id number] Abnormal [facility] US Breast - right limitedOrd ered By: Lia Bunch on 12-06-2023 Interpretation and review of laboratory results Abnormal [facility] Work Phone: [facility] Work Phone: US Breast - right limitedon 12-06-2023 Radiology Study observation (narrative) [facility] Work Phone: Possible sonographic correlate of the enhancing right breast mass previously noted on breast MRI 11/24/2023. Due to its subtle sonographic appearance, further evaluation with surgical consultation and MRI guided biopsy is recommended. Dr. Garett Quevedo explained the findings and recommendations to the patient at the time of exam and Kely Crain TRANSPORTER RADIOLOGY. A message was sent to the referring practitioner at the time of this dictation regarding these critical findings. A pre-procedure form was filled out. Method of Detection: Category Smri - Screening MRI BI-RADS CATEGORY: BI-RADS Category: 4 Suspicious. Recommendation: Surgical Consultation and Biopsy. Recommended Date: Immediate. Laterality: Right. For any future breast imaging appointments, please call [phone]). I personally reviewed the images/study and I agree with the findings as stated by fellow physician, Dr. Garett Quevedo. MACRO: Dr. Garett Quevedo discussed the significance and urgency of this critical finding in person with KELY PARAS on 12/06/2023 at 12:55 pm. (-RCF-) Findings: See findings. Signed by: Lia Bunch 12/06/2023 2:25 PM Dictation workstation: [id number] MMODAL Interpreted By: Lia Bunch and Avery Ross STUDY: BI US BREAST LIMITED RIGHT; 12/06/2023 1:04 pm ACCESSION NUMBER(S): [id number] ORDERING CLINICIAN: KELY CRAIN INDICATION: MRI directed ultrasound of an enhancing right breast mass. BRCA 2 gene mutation. Family history of breast cancer. COMPARISON: Correlation with breast MRI 11/24/2023 and mammogram 03/30/2023. FINDINGS: A targeted ultrasound of the entire lower outer right breast was performed by a registered chronometer repairer and Dr. Garett Quevedo using elastography. An oval circumscribed hypoechoic mass measuring 0.4 x 0.1 x 0.2 cm is seen at the 8 o'clock position 3 cm from the nipple. It is avascular and soft on elastography. This possibly corresponds with the enhancing breast mass on MRI 11/24/2023. A definite sonographic correlate for the MRI finding is not appreciated. MMODAL Lia Bunch MD - 12/06/2023 Interpreted By: Lia Bunch and Avery Ross STUDY: BI US BREAST LIMITED RIGHT; 12/06/2023 1:04 pm ACCESSION NUMBER(S): [id number] ORDERING CLINICIAN: KELY CRAIN INDICATION: MRI directed ultrasound of an enhancing right breast mass. BRCA 2 gene mutation. Family history of breast cancer. COMPARISON: Correlation with breast MRI 11/24/2023 and mammogram 03/30/2023. FINDINGS: A targeted ultrasound of the entire lower outer right breast was performed by a registered chronometer repairer and Dr. Garett Quevedo using elastography. An [...] the time of exam and Kely Crain TRANSPORTER RADIOLOGY. A message was sent to the referring practitioner at the time of this dictation regarding these critical findings. A pre-procedure form was filled out. Method of Detection: Category Smri - Screening MRI BI-RADS CATEGORY: BI-RADS Category: 4 Suspicious. Recommendation: Surgical Consultation and Biopsy. Recommended Date: Immediate. Laterality: Right. For any future breast imaging appointments, please call [phone]). I personally reviewed the images/study and I agree with the findings as stated by fellow physician, Dr. Garett Quevedo. MACRO: Dr. Garett Quevedo discussed the significance and urgency of this critical finding in person with KELY CRAIN on 12/06/2023 at 12:55 pm. (-RCF-) Findings: See findings. Signed by: Lia Bunch 12/06/2023 2:25 PM Dictation workstation: [id number] [facility] Work Phone: MR Breast - bilateral W cont rast IVOrdered By: Lia Bunch on 11-25-2023 Interpretation and review of laboratory results Abnormal [facility] Work Phone: [facility] Work Phone: MR Breast - bilateral Kevyn Rowell 11-25-2023 Interpreted By: Lia Bunch and Avery Ross STUDY: BI MR BREAST BILATERAL WITH CONTRAST FULL PROTOCOL; 11/24/2023 10:13 am ACCESSION NUMBER(S): [id number] ORDERING CLINICIAN: KELY CRAIN INDICATION: High-risk supplemental [...] independent workstation, 3-D images were formulated using [employer] including time enhancement curves, subtraction images and [...] few nonenhancing right hepatic cysts are seen. MMODAL Lia Bunch MD - 11/25/2023 Interpreted By: Lia Bunch and Avery Ross STUDY: BI MR BREAST BILATERAL WITH CONTRAST FULL PROTOCOL; 11/24/2023 10:13 am ACCESSION NUMBER(S): [id number] ORDERING CLINICIAN: KELY CRAIN INDICATION: High-risk supplemental [...] independent workstation, 3-D images were formulated using [employer] including time enhancement curves, subtraction images and [...] dictation regarding these critical findings using the Hubs1 notification system. A pre-procedure form was filled out. 2. No MRI evidence of malignancy in the left breast. Method of Detection: Category Smri - Screening MRI BI-RADS CATEGORY: BI-RADS Category: 4 Suspicious. Recommendation: Surgical Consultation and Biopsy. Recommended Date: Immediate. Laterality: Right. For any future breast imaging appointments, please call [phone]). MACRO: Critical Finding: Breast Imaging Abnormality. Notification was initiated on 11/25/2023 at 1:43 pm by Garett Quevedo. (-YCF-) Instructions: Surgical Consultation and Imaging Guided Biopsy. Signed by: Lia Bunch 11/25/2023 2:02 PM Dictation workstation: [id number] [facility] Work Phone: BI MR BREAST BILATERAL WITH CONTRAST FULL PROTOCOLon 11-24-2023 BI MR BREAST BILATERAL WITH CONTRAST FULL PROTOCOL Interpreted By: Lia Bunch and Avery Ross STUDY: BI MR BREAST BILATERAL WITH CONTRAST FULL PROTOCOL; 11/24/2023 10:13 am ACCESSION NUMBER(S): [id number] ORDERING CLINICIAN: KELY CRAIN INDICATION: High-risk supplemental [...] independent workstation, 3-D images were formulated using [employer] including time enhancement curves, subtraction images and [...] dictation regarding these critical findings using the Hubs1 notification system. A pre-procedure form was filled out. 2. No MRI evidence of malignancy in the left breast. Method of Detection: Category Smri - Screening MRI BI-RADS CATEGORY: BI-RADS Category: 4 Suspicious. Recommendation: Surgical Consultation and Biopsy. Recommended Date: Immediate. Laterality: Right. For any future breast imaging appointments, please call [phone]). MACRO: Critical Finding: Breast Imaging Abnormality. Notification was initiated on 11/25/2023 at 1:43 pm by Garett Quevedo. (-YCF-) Instructions: Surgical Consultation and Imaging Guided Biopsy. Signed by: Lia Bunch 11/25/2023 2:02 PM Dictation workstation: [id number] Abnormal [facility] MR Breast - bilateral W cont rast Lelia 11-24-2023 Radiology Study observation (narrative) [facility] Work Phone: BI TRANSFER OF OUTSIDE FILMS on 11-21-2023 BI TRANSFER OF OUTSIDE FILMS Outside images for comparison or treatment purposes, not interpreted by Radiologists. Normal [facility] Study Interpretation of outs keira studyon 11-21-2023 Outside images for comparison or treatment purposes, not interpreted by Radiologists. IMAGING Ambulatory Visit Summaryon 0 11-14-2023 Ambulatory Visit Summary NITHYA DE DIOS :1965 Visit Date:11/14/2023 Ambulatory Visit Instructions Your Diagnosis Primary biliary cholangitis Vitamin D deficiency Osteopenia Personal history of colonic polyps Your Care Team Attending Physician - Eh URIAS, Vitaly Hernandes Primary Care Physician - BRANT URIAS, This Is Your Medications List Contact prescribing [...] EDT With: Eh URIAS, Vitaly Hernandes Where: [facility] Gastroenterology Office/Clin ic Noteon 11-14-2023 Gastroenterology [...] worsening diarrhea. She is following up with [facility] hepatology also. 2. Vitamin D [...] DUODENUM: Normal Vit D level 10/24/23 @ [facility]: 56.2 CMP 10/26/23 @ [place]: All normal besides BUN (H) 19.0 and [...] first with Dr. Meza given his the railcar mechanic taking care of her She also tested [...] be repea (more content not included)... Normal [facility] Comment on above: Result Comment: Elec tronically Signed By: Eh URIAS, Vitaly Hernandes\.br\Date and Time Signed: 11/14/23 12:07 EST Auth for Release of Medical Recordson 11-08-2023 Auth for Release of Medical Records [id number]#1.0 0TIFF Normal [facility] ENDOSCOPIC ULTRASOUND (UPPER )on 10-06-2023 ENDOSCOPIC ULTRASOUND (UPPER) Table formatting from the original result was not included. Normal [facility] Endoscopic Ultrasound (Upper )on 10-06-2023 Radiology Study observation (narrative) [facility] Work Phone: Table formatting fro m the original result [...] PM Specimens No specimens collected Procedure Location [facility] [address] [facility] [address] Ref[place] [address] [address] [facility] [place] [address] Procedure Provider Vance Baires MD [facility] Work Phone: [facility] Work Phone: Gastroenterology Office/Clin ic Noteon 05-16-2023 [...] calcium supplements, whoever i should opt for awzm-qri-phfeygn options or require a prescription for vitamin [...] worsening diarrhea. She is following up with [facility] hepatology also. 2. Vitamin D [...] is asymptomati (more content not included)... Normal [facility] Comment on above: Result Comment: Elec tronically Signed By: Hunter Devi\.br\Date and Time Signed: 05/12/23 18:26 EDT\.br\Electronically Co-Signed By: Leandro BILL MD\.br\Date and Time Co-Signed: 05/16/23 14:00 EDT Ambulatory Visit Summaryon 0 05-12-2023 Ambulatory Visit Summary NITHYA DE DIOS :1965 MRN:[id number] Visit Date:05/12/2023 Ambulatory Visit Instructions Your Diagnosis [...] AM EDT With: Leandro BILL MD Where: [facility] Normal [facility] 05-05-2023 CNPN Telephone (GASTA5) NITHYA DE DIOS ([id number]) 1965 F Date Time Provider Department 05/05/23 YAS MEZA GASTA5 During your visit today, we recorded the following information about you: Annette Molina, RN 05/05/2023 12:16 PM Signed Pt sent the following MCM regarding US and fibroscan results: I didn?t see these results in my chart for the [facility], so I am sending them. [...] Encounter Status:Closed by YAS MEZA on 05/06/23 [facility] Post[facility] Documentson Postoperative Documents [id number]#1. 00CD:127 [facility] Consent for Treatmenton 04-02 Consent for Treatment [id number]#1.0 0CD:127 [facility] Lab Reportson 04-20-2023 Lab Reports [id number]#1.0 0CD:127 [facility] Lab Reports [id number]#1.0 0CD:127 [facility] US Abdomen, Limitedon 2022 US Abdomen, [...] Yas Rodriguez DO Transcribed by: STEFANIE Technologist: HW [facility] Physician Orderon 04-12-2023 Physician Order [id number]#1.0 0CD:127 [facility] CNPNon 2023 CNPN Telephone (GASTA5) NITHYA DE DIOS ([id number]) 1965 F Date Time Provider Department 04/07/23 [...] 3:06 PM Signed Pt notified via original [facility]. Annette Molina RN 2023 3:06 PM Allergies As of Date: 2023 Noted Allergy Reaction RIFAMPIN 06/15/2006 2 - Rash 9 - Itching SULFA (SULFONAMIDE ANTIBIOTICS) 09/18/2019 14 - Other: See Comments Date Reviewed: 01/21/2021 Reviewed by: Jonh Forde - Fully Assessed Reason for Visit: Results [95] Primary Visit Diagnosis:Primary biliary cholangitis (HCC) [K74.3] Order(s):US ABD RIGHT UPPER QUADRANT [[id number]] Order #: [id number] FUTURE US ELASTOGRAPHY LIVER [[id number]] Order #: [id number] FUTURE Prescriptions as of 2023 - alendronate [...] Encounter Status:Closed by YAS MEZA on 04/07/23 [facility] Lab Reportson 03-24-2023 Lab Reports [id number] CD:127 [facility] Pre-Certification Formon Pre-Certification Form [id number]#1.00 CD:127 [facility] Pre-Certification Formon Pre-Certification Form [id number]#1.00 CD:127 [facility] Pre-Certification Formon Pre-Certification Form [id number]#1.0 0CD:127 [facility] Retail - Clinical Noteon Retail - Clinical Note [id number]#1.0 0CD:127 [facility] BD Bone Density DEXAon 02-04 BD [...] Matson M.D. Transcribed by: STEFANIE Technologist: DARON [facility] Consent for Treatmenton Consent for Treatment [id number]#1.0 0CD:127 [facility] CNPNon 01-04-2023 CNPN Telephone (GASTA5) NITHYA DE DIOS ([id number]) 1965 F Date Time Provider Department 01/04/23 YAS MEZA During your visit today, we recorded the following information about you: Constanza Corona RN 01/04/2023 3:19 PM Signed Received the following [employer] message: Dr. Paradise Ortiz wanted to see [...] AM Signed Dr Rivera response sent via patients original [employer] message. Constanza Corona RN January 05, 2023 [...] Status:Closed by CONSTANZA CORONA on 01/04/23 [facility] LIVER PROFILEon 01-01-2023 Albumin [Mass/Vol] 3.6 g/dL Normal 3.4-5.0 [facility] Comment on above: Performed By: #### L IVER #### [facility] [address] [place] [address] Dr. Sincere Wood Albumin/Globulin [Mass ratio] 0.9 {ratio} Normal [facility] Comment on above: Performed By: #### L IVER #### [facility] [address] [address] [address] Sincere Wood ALP [Catalytic activity/Vol] 166 U/L Critically high 46-116 [facility] Comment on above: Performed By: #### L IVER #### [facility] [address] [address] [address] Sincere Wood ALT [Catalytic activity/Vol] 49 U/L Normal 14-59 [facility] Comment on above: Performed By: #### L IVER #### [facility] [address] [place] [address] Dr. Sincere Wood AST [Catalytic activity/Vol] 27 U/L Normal 15-37 [facility] Comment on above: Performed By: #### L IVER #### [facility] [address] [place] [address] Dr. Sincere Wood BILI, CONJUGATED 0.1 mg/dL Normal 0.0-0.2 [facility] Comment on above: Performed By: #### L IVER #### [facility] [address] [place] [address] Dr. Sincere Wood Bilirubin [Mass/Vol] 0.3 mg/dL Normal 0.2-1.0 [facility] Comment on above: Performed By: #### L IVER #### [facility] [address] [place] [address] Dr. Sincere Wood Globulin (S) [Mass/Vol] 4.0 g/dL Normal [facility] Comment on above: Performed By: #### L IVER #### [facility] [address] [place] [address] Dr. Sincere Wood Protein [Mass/Vol] 7.6 g/dL Normal 6.4-8.2 [facility] Comment on above: Performed By: #### L IVER #### [facility] [address] [place] [address] Dr. Sincere Wood MMR IMMUNITYon 11-24-2022 Mumps Abs, IgG 19.7 AU/mL Normal Immune >10.9 [facility] Comment on above: Result Comment: Nega tive <9.0 Equivocal 9.0 - 10.9 Positive >10.9 A positive result generally indicates past exposure to Mumps virus or previous vaccination. Performed By: #### M MRIMMU #### [facility] [address] [place] [address] Dr. Sincere Wood Rubella Antibodies, IgG <0.90 Critically low Immune >0.99 [facility] Comment on above: Result Comment: Non- immune <0.90 Equivocal 0.90 - 0.99 Immune >0.99 Performed By: #### M MRIMMU #### [facility] [address] [place] [address] Dr. Sincere Wood Rubeola Ab, IgG 23.4 AU/mL Normal Immune >16.4 [facility] Comment on above: Result Comment: Nega tive <13.5 Equivocal 13.5 - 16.4 Positive >16.4 Presence of antibodies to Rubeola is presumptive evidence of immunity except when acute infection is suspected. Performed By: #### M MRIMMU #### [facility] [address] [address] [address] Sincere Wood FREE T3on 10-26-2022 FREE T3 1.72 pg/mlL Critically low 2.18-3.98 [facility] Comment on above: Performed By: #### E VERONICA #### [facility] [address] [place] [address] Dr. Sincere Wood FREE T4on 10-26-2022 Free T4 [Mass/Vol] 1.62 ng/dL Critically high 0.76-1.46 [facility] Comment on above: Performed By: #### F T4 #### [facility] [address] [place] [address] Dr. Sincere Wood TSHon 10-26-2022 TSH 3.966 uIU/mL Critically high 0.358-3.740 [facility] Comment on above: Performed By: #### E LOKIDI #### [facility] [address] [place] [address] Dr. Sincere Wood ESTRADIOLon 09-23-2022 Estradiol 10.5 pg/mL Normal [facility] Comment on above: Result Comment: Adul t Female: Follicular phase 12.5 - 166.0 Ovulation phase 85.8 - 498.0 Luteal phase 43.8 - 211.0 Postmenopausal <6.0 - 54.7 1st trimester 215.0 - >4300.0 Ana ECLIA methodology Performed By: #### E STRADI #### [facility] [address] [place] [address] Dr. Sincere Wood FSHon 09-23-2022 FSH 56.5 mIU/mL Normal [facility] Comment on above: Result Comment: Adul t Female: Follicular phase 3.5 - 12.5 Ovulation phase 4.7 - 21.5 Luteal phase 1.7 - 7.7 Postmenopausal 25.8 - 134.8 Performed By: #### E VERONICA #### [facility] [address] [place] [address] Dr. Sincere Wood TESTOSTERONE, TOTALon 2021 Testosterone [Mass/Vol] 20 ng/dL Normal 4-50 [facility] Comment on above: Performed By: #### E VERONICA #### [facility] [address] [place] [address] Dr. Sincere Wood CBC AUTO DIFFon 09-22-2022 BASO # 0.0 103/ul Normal 0.0-0.1 [facility] Comment on above: Performed By: #### C BC #### [facility] [address] [place] [address] Dr. Sincere Wood Basophils/100 WBC (Bld) 0.5 % Normal 0.2-2.0 [facility] Comment on above: Performed By: #### C BC #### [facility] [address] [place] [address] Dr. Sincere Wood EO # 0.2 103/ul Normal 0.0-0.7 [facility] Comment on above: Performed By: #### C BC #### [facility] [address] [place] [address] Dr. Sincere Wood Eosinophils/100 WBC (Bld) 3.4 % Normal 0.9-7.0 [facility] Comment on above: Performed By: #### C BC #### [facility] [address] [place] [address] Dr. Sincere Wood Erythrocyte distribution width (RBC) [Ratio] 12.3 % Normal 11.0-15.0 [facility] Comment on above: Performed By: #### C BC #### [facility] [address] [place] [address] Dr. Sincere Wood Hematocrit (Bld) [Volume fraction] 36.8 % Normal 36.0-48.0 [facility] Comment on above: Performed By: #### C BC #### [facility] [address] [place] [address] Dr. Sincere Wood Hemoglobin (Bld) [Mass/Vol] 12.3 g/dL Normal 12.0-16.0 [facility] Comment on above: Performed By: #### C BC #### [facility] [address] [place] [address] Dr. Sincere Wood IG # 0.02 10e3/ul Normal 0.00-0.03 [facility] Comment on above: Performed By: #### C BC #### [facility] [address] [place] [address] Dr. Sincere Wood IG % 0.4 % Normal 0.0-0.5 [facility] Comment on above: Performed By: #### C BC #### [facility] [address] [place] [address] Dr. Sincere Wood LYMPH # 2.2 103/ul Normal 1.2-3.8 [facility] Comment on above: Performed By: #### C BC #### [facility] [address] [place] [address] Dr. Sincere Wood Lymphocytes/100 WBC (Bld) 38.4 % Normal 20.5-60.0 [facility] Comment on above: Performed By: #### C BC #### [facility] [address] [place] [address] Dr. Sincere Wood MANUAL DIFF REQ NO Normal [facility] Comment on above: Performed By: #### C BC #### [facility] [address] [place] [address] Dr. Sincere Wood MCH (RBC) [Entitic mass] 29.6 pg Normal 26.7-34.0 [facility] Comment on above: Performed By: #### C BC #### [facility] [address] [place] [address] Dr. Sincere Wood MCHC (RBC) [Mass/Vol] 33.4 g/dL Normal 29.9-35.2 [facility] Comment on above: Performed By: #### C BC #### [facility] [address] [place] [address] Dr. Sincere Wood MCV (RBC) [Entitic vol] 88.7 fL Normal 81.0-99.0 [facility] Comment on above: Performed By: #### C BC #### [facility] [address] [place] [address] Dr. Sincere Wood MONO # 0.5 103/ul Normal 0.3-0.8 [facility] Comment on above: Performed By: #### C BC #### [facility] [address] [place] [address] Dr. Sincere Wood Monocytes/100 WBC (Bld) 9.1 % Normal 1.7-12.0 [facility] Comment on above: Performed By: #### C BC #### [facility] [address] [place] [address] Dr. Sincere Wood NEUT # 2.7 103/ul Normal 1.4-6.5 [facility] Comment on above: Performed By: #### C BC #### [facility] [address] [place] [address] Dr. Sincere Wood Neutrophils/100 WBC (Bld) 48.2 % Normal 43.0-75.0 [facility] Comment on above: Performed By: #### C BC #### [facility] [address] [place] [address] Dr. Sincere Wood Platelet mean volume (Bld) [Entitic vol] 10.0 fL Normal 9.5-13.5 [facility] Comment on above: Performed By: #### C BC #### [facility] [address] [place] [address] Dr. Sincere Wood PLT 302 103/ul Normal 150-450 [facility] Comment on above: Performed By: #### C BC #### [facility] [address] [place] [address] Dr. Sincere Wood RBC 4.15 106/ul Critically low 4.20-5.40 [facility] Comment on above: Performed By: #### C BC #### [facility] [address] [place] [address] Dr. Sincere Wood WBC 5.6 103/ul Normal 4.0-11.0 [facility] Comment on above: Performed By: #### C BC #### [facility] [address] [place] [address] Dr. Sincere Wood PROF 14(COMP METB)on 022 Albumin [Mass/Vol] 3.6 g/dL Normal 3.4-5.0 [facility] Comment on above: Performed By: #### C MP #### [facility] [address] [place] [address] Dr. Sincere Wood Albumin/Globulin [Mass ratio] 0.9 {ratio} Normal [facility] Comment on above: Performed By: #### C MP #### [facility] [address] [place] [address] Dr. Sincere Wood ALP [Catalytic activity/Vol] 153 U/L Critically high 46-116 [facility] Comment on above: Performed By: #### C MP #### [facility] [address] [place] [address] Dr. Sincere Wood ALT [Catalytic activity/Vol] 53 U/L Normal 14-59 [facility] Comment on above: Performed By: #### C MP #### [facility] [address] [place] [address] Dr. Sincere Wood Anion gap [Moles/Vol] 11.6 mmol/L Normal [facility] Comment on above: Performed By: #### C MP #### [facility] [address] [place] [address] Dr. Sincere Wood AST [Catalytic activity/Vol] 30 U/L Normal 15-37 [facility] Comment on above: Performed By: #### C MP #### [facility] [address] [place] [address] Dr. Sincere Wood Bilirubin [Mass/Vol] 0.3 mg/dL Normal 0.2-1.0 [facility] Comment on above: Performed By: #### C MP #### [facility] [address] [place] [address] Dr. Sincere Wood Calcium [Mass/Vol] 9.1 mg/dL Normal 8.5-10.1 [facility] Comment on above: Performed By: #### C MP #### [facility] [address] [address] [address] Sincere Wood Chloride [Moles/Vol] 102 mmol/L Normal 98-107 [facility] Comment on above: Performed By: #### C MP #### [facility] [address] [address] [address] Sincere Wood CO2 [Moles/Vol] 28.6 mmol/L Normal 21.0-32.0 [facility] Comment on above: Performed By: #### C MP #### [facility] [address] [place] [address] Dr. Sincere Wood Creatinine [Mass/Vol] 0.85 mg/dL Normal 0.55-1.02 [facility] Comment on above: Performed By: #### C MP #### [facility] [address] [place] [address] Dr. Sincere Wood EGFR-AF [place] >60 Normal >=60 [facility] Comment on above: Performed By: #### C MP #### [facility] [address] [place] [address] Dr. Sincere Wood EGFR-NON AF [place] >60 Normal >=60 [facility] Comment on above: Performed By: #### C MP #### [facility] [address] [place] [address] Dr. Sincere Wood Globulin (S) [Mass/Vol] 4.0 g/dL Normal [facility] Comment on above: Performed By: #### C MP #### [facility] [address] [place] [address] Dr. Sincere Wood Glucose [Mass/Vol] 89 mg/dL Normal 74-106 [facility] Comment on above: Performed By: #### C MP #### [facility] [address] [place] [address] Dr. Sincere Wodo Potassium [Moles/Vol] 4.2 mmol/L Normal 3.5-5.1 [facility] Comment on above: Performed By: #### C MP #### [facility] [address] [address] [address] Sincere Wood Protein [Mass/Vol] 7.6 g/dL Normal 6.4-8.2 [facility] Comment on above: Performed By: #### C MP #### [facility] [address] [address] [address] Sincere Wood Sodium [Moles/Vol] 138 mmol/L Normal 136-145 [facility] Comment on above: Performed By: #### C MP #### [facility] [address] [address] [address] Sincere Wood Urea nitrogen [Mass/Vol] 16.0 mg/dL Normal 7.0-18.0 [facility] Comment on above: Performed By: #### C MP #### [facility] [address] [place] [address] Dr. Sincere Wood Urea nitrogen/Creatinine [Mass ratio] 18.8 mg/mg Normal [facility] Comment on above: Performed By: #### C MP #### [facility] [address] [address] [address] Sincere Wood PROF 14(COMP METB)on 022 Albumin [Mass/Vol] 3.6 g/dL Normal 3.4-5.0 [facility] Comment on above: Performed By: #### C MP #### [facility] [address] [address] [address] Sincere Wood Albumin/Globulin [Mass ratio] 0.9 {ratio} Normal [facility] Comment on above: Performed By: #### C MP #### [facility] [address] [address] [address] Sincere Wood ALP [Catalytic activity/Vol] 138 U/L Critically high 46-116 [facility] Comment on above: Performed By: #### C MP #### [facility] [address] [address] [address] Sincere Wood ALT [Catalytic activity/Vol] 46 U/L Normal 14-59 [facility] Comment on above: Performed By: #### C MP #### [facility] [address] [address] [address] Sincere Wood Anion gap [Moles/Vol] 13.4 mmol/L Normal [facility] Comment on above: Performed By: #### C MP #### [facility] [address] [place] [address] Dr. Sincere Wood AST [Catalytic activity/Vol] 35 U/L Normal 15-37 [facility] Comment on above: Performed By: #### C MP #### [facility] [address] [address] [address] Sincere Wood Bilirubin [Mass/Vol] 0.4 mg/dL Normal 0.2-1.0 [facility] Comment on above: Performed By: #### C MP #### [facility] [address] [place] [address] Dr. Sincere Wood Calcium [Mass/Vol] 9.1 mg/dL Normal 8.5-10.1 [facility] Comment on above: Performed By: #### C MP #### [facility] [address] [place] [address] Dr. Sincere Wood Chloride [Moles/Vol] 105 mmol/L Normal 98-107 [facility] Comment on above: Performed By: #### C MP #### [facility] [address] [place] [address] Dr. Sincere Wood CO2 [Moles/Vol] 26.2 mmol/L Normal 21.0-32.0 [facility] Comment on above: Performed By: #### C MP #### [facility] [address] [place] [address] Dr. Sincere Wood Creatinine [Mass/Vol] 0.76 mg/dL Normal 0.55-1.02 [facility] Comment on above: Performed By: #### C MP #### [facility] [address] [place] [address] Dr. Sincere Wood EGFR-AF [place] >60 Normal >=60 [facility] Comment on above: Performed By: #### C MP #### [facility] [address] [place] [address] Dr. Sincere Wood EGFR-NON AF [place] >60 Normal >=60 [facility] Comment on above: Performed By: #### C MP #### [facility] [address] [place] [address] Dr. Sincere Wood Globulin (S) [Mass/Vol] 4.0 g/dL Normal [facility] Comment on above: Performed By: #### C MP #### [facility] [address] [address] [address] Sincere Wood Glucose [Mass/Vol] 103 mg/dL Normal 74-106 [facility] Comment on above: Performed By: #### C MP #### [facility] [address] [address] [address] Sincere Wood Potassium [Moles/Vol] 4.6 mmol/L Normal 3.5-5.1 [facility] Comment on above: Performed By: #### C MP #### [facility] [address] [place] [address] Dr. Sincere Wood Protein [Mass/Vol] 7.6 g/dL Normal 6.4-8.2 [facility] Comment on above: Performed By: #### C MP #### [facility] [address] [place] [address] Dr. Sincere Wood Sodium [Moles/Vol] 140 mmol/L Normal 136-145 [facility] Comment on above: Performed By: #### C MP #### [facility] [address] [address] [address] Sincere Wood Urea nitrogen [Mass/Vol] 21.0 mg/dL Critically high 7.0-18.0 [facility] Comment on above: Performed By: #### C MP #### [facility] [address] [address] [address] Sincere Wood Urea nitrogen/Creatinine [Mass ratio] 27.6 mg/mg Normal [facility] Comment on above: Performed By: #### C MP #### [facility] [address] [place] [address] Dr. iSncere Wood SCREENING MAMMOGRAM W/PRINCE, BILATERAL*on 03-29-2022 SCREENING [...] VERY IMPORTANT TO YOUR HEALTH. THE CURRENT [place] [employer] AND [employer] GUIDELINES RECOMMENDS ANNUAL MAMMOGRAPHY BEGINNING AT AGE 40 THIS FACILITY USES A REMINDER SYSTEM TO ENSURE ALL PATIENTS RECEIVE REMINDER NOTIFICATIONS AT THE APPROPRIATE TIME BASED ON THE RECOMMENDATIONS OF THIS EXAM. Board Certified Radiologist. Accredited by the ACR and FDA. Report reported and signed by Davian Lewis on 03/29/2022 1139 Normal [facility] CBC AUTO DIFFon 02-18-2022 BASO # 0.0 103/ul Normal 0.0-0.1 [facility] Comment on above: Performed By: #### C BC #### [facility] [address] [place] [address] Dr. Sincere Wood Basophils/100 WBC (Bld) 0.7 % Normal 0.2-2.0 [facility] Comment on above: Performed By: #### C BC #### [facility] [address] [place] [address] Dr. Sincere Wood EO # 0.2 103/ul Normal 0.0-0.7 [facility] Comment on above: Performed By: #### C BC #### [facility] [address] [place] [address] Dr. Sincere Wood Eosinophils/100 WBC (Bld) 3.1 % Normal 0.9-7.0 [facility] Comment on above: Performed By: #### C BC #### [facility] [address] [place] [address] Dr. Sincere Wood Erythrocyte distribution width (RBC) [Ratio] 13.0 % Normal 11.0-15.0 [facility] Comment on above: Performed By: #### C BC #### [facility] [address] [place] [address] Dr. Sincere Wood Hematocrit (Bld) [Volume fraction] 38.8 % Normal 36.0-48.0 [facility] Comment on above: Performed By: #### C BC #### [facility] [address] [place] [address] Dr. Sincere Wood Hemoglobin (Bld) [Mass/Vol] 12.2 g/dL Normal 12.0-16.0 [facility] Comment on above: Performed By: #### C BC #### [facility] [address] [place] [address] Dr. Sincere Wood IG # 0.03 10e3/ul Normal 0.00-0.03 [facility] Comment on above: Performed By: #### C BC #### [facility] [address] [place] [address] Dr. Sincere Wood IG % 0.5 % Normal 0.0-0.5 [facility] Comment on above: Performed By: #### C BC #### [facility] [address] [place] [address] Dr. Sincere Wood LYMPH # 1.9 103/ul Normal 1.2-3.8 [facility] Comment on above: Performed By: #### C BC #### [facility] [address] [place] [address] Dr. Sincere Wood Lymphocytes/100 WBC (Bld) 34.4 % Normal 20.5-60.0 [facility] Comment on above: Performed By: #### C BC #### [facility] [address] [place] [address] Dr. Sincere Wood MANUAL DIFF REQ NO Normal [facility] Comment on above: Performed By: #### C BC #### [facility] [address] [place] [address] Dr. Sincere Wood MCH (RBC) [Entitic mass] 30.1 pg Normal 26.7-34.0 [facility] Comment on above: Performed By: #### C BC #### [facility] [address] [place] [address] Dr. Sincere Wood MCHC (RBC) [Mass/Vol] 31.4 g/dL Normal 29.9-35.2 [facility] Comment on above: Performed By: #### C BC #### [facility] [address] [place] [address] Dr. Sincere Wood MCV (RBC) [Entitic vol] 95.8 fL Normal 81.0-99.0 [facility] Comment on above: Performed By: #### C BC #### [facility] [address] [place] [address] Dr. Sincere Wood MONO # 0.5 103/ul Normal 0.3-0.8 [facility] Comment on above: Performed By: #### C BC #### [facility] [address] [place] [address] Dr. Sincere Wood Monocytes/100 WBC (Bld) 8.8 % Normal 1.7-12.0 [facility] Comment on above: Performed By: #### C BC #### [facility] [address] [place] [address] Dr. Sincere Wood NEUT # 2.9 103/ul Normal 1.4-6.5 [facility] Comment on above: Performed By: #### C BC #### [facility] [address] [place] [address] Dr. Sincere Wood Neutrophils/100 WBC (Bld) 52.5 % Normal 43.0-75.0 [facility] Comment on above: Performed By: #### C BC #### [facility] [address] [place] [address] Dr. Sincere Wood Platelet mean volume (Bld) [Entitic vol] 10.8 fL Normal 9.5-13.5 [facility] Comment on above: Performed By: #### C BC #### [facility] [address] [place] [address] Dr. Sincere Wood PLT 289 103/ul Normal 150-450 [facility] Comment on above: Performed By: #### C BC #### [facility] [address] [place] [address] Dr. Sincere Wood RBC 4.05 106/ul Critically low 4.20-5.40 [facility] Comment on above: Performed By: #### C BC #### [facility] [address] [address] [address] Sincere Wood WBC 5.6 103/ul Normal 4.0-11.0 [facility] Comment on above: Performed By: #### C BC #### [facility] [address] [place] [address] Dr. Sincere Wood GLYCOHEMOGLOBIN A1Con 2021 ADA RECOMMENDATION SEE BELOW Normal [facility] Comment on above: Result Comment: ADA RECOMMENDED LIMIT 4.0 - 6.0 ADA THERAPEUTIC TARGET < 7.0 ACTION SUGGESTED > 7.0 Performed By: #### A 1C #### [facility] [address] [place] [address] Dr. Sincere Wood Glucose [Mass/Vol] 117 mg/dL Normal [facility] Comment on above: Performed By: #### A 1C #### [facility] [address] [place] [address] Dr. Sincere Wood HbA1c (Bld) [Mass fraction] 5.7 % Normal 4.5-6.2 [facility] Comment on above: Performed By: #### A 1C #### [facility] [address] [place] [address] Dr. Sincere Wood PROF 14(COMP METB)on 022 Albumin [Mass/Vol] 3.4 g/dL Normal 3.4-5.0 [facility] Comment on above: Performed By: #### C MP #### [facility] [address] [place] [address] Dr. Sincere Wood Albumin/Globulin [Mass ratio] 0.8 {ratio} Normal [facility] Comment on above: Performed By: #### C MP #### [facility] [address] [place] [address] Dr. Sincere Wood ALP [Catalytic activity/Vol] 150 U/L Critically high 46-116 [facility] Comment on above: Performed By: #### C MP #### [facility] [address] [place] [address] Dr. Sincere Wood ALT [Catalytic activity/Vol] 85 U/L Critically high 14-59 [facility] Comment on above: Performed By: #### C MP #### [facility] [address] [address] [address] Sincere Wood Anion gap [Moles/Vol] 11.4 mmol/L Normal Th [facility] Comment on above: Performed By: #### C MP #### [facility] [address] [address] [address] Sincere Wood AST [Catalytic activity/Vol] 46 U/L Critically high 15-37 [facility] Comment on above: Performed By: #### C MP #### [facility] [address] [place] [address] Dr. Sincere Wood Bilirubin [Mass/Vol] 0.3 mg/dL Normal 0.2-1.0 [facility] Comment on above: Performed By: #### C MP #### [facility] [address] [place] [address] Dr. Sincere Wood Calcium [Mass/Vol] 8.9 mg/dL Normal 8.5-10.1 [facility] Comment on above: Performed By: #### C MP #### [facility] [address] [place] [address] Dr. Sincere Wood Chloride [Moles/Vol] 104 mmol/L Normal 98-107 [facility] Comment on above: Performed By: #### C MP #### [facility] [address] [place] [address] Dr. Sincere Wood CO2 [Moles/Vol] 28.6 mmol/L Normal 21.0-32.0 [facility] Comment on above: Performed By: #### C MP #### [facility] [address] [place] [address] Dr. Sincere Wood Creatinine [Mass/Vol] 0.69 mg/dL Normal 0.55-1.02 [facility] Comment on above: Performed By: #### C MP #### [facility] [address] [place] [address] Dr. Sincere Wood EGFR-AF [place] >60 Normal >=60 [facility] Comment on above: Performed By: #### C MP #### [facility] [address] [address] [address] Sincere Wood EGFR-NON AF [place] >60 Normal >=60 [facility] Comment on above: Performed By: #### C MP #### [facility] [address] [address] [address] Sincere Wood Globulin (S) [Mass/Vol] 4.1 g/dL Normal [facility] Comment on above: Performed By: #### C MP #### [facility] [address] [address] [address] Sincere Wood Glucose [Mass/Vol] 96 mg/dL Normal 74-106 [facility] Comment on above: Performed By: #### C MP #### [facility] [address] [place] [address] Dr. Sincere Wood Potassium [Moles/Vol] 4.0 mmol/L Normal 3.5-5.1 [facility] Comment on above: Performed By: #### C MP #### [facility] [address] [address] [address] Sincere Wood Protein [Mass/Vol] 7.5 g/dL Normal 6.4-8.2 [facility] Comment on above: Performed By: #### C MP #### [facility] [address] [address] [address] Sincere Wood Sodium [Moles/Vol] 140 mmol/L Normal 136-145 [facility] Comment on above: Performed By: #### C MP #### [facility] [address] [address] [address] Sincere Wood Urea nitrogen [Mass/Vol] 19.0 mg/dL Critically high 7.0-18.0 [facility] Comment on above: Performed By: #### C MP #### [facility] [address] [address] [address] Sincere Wood Urea nitrogen/Creatinine [Mass ratio] 27.5 mg/mg Normal [facility] Comment on above: Performed By: #### C MP #### [facility] [address] [place], [place] [address] Dr. Sincere Wood Free T3on 11-09-2021 FT3 2.72 pg/mL Normal 2.00-4.40 [facility] Coordinator Comment on above: Performed By: #### F T4, TSH, VITD, FT3 #### [facility] [address], [place] [id number] Free T4on 11-09-2021 Free T4 [Mass/Vol] 1.50 ng/dL Normal 0.80-1.80 [facility] Center Coordinator Comment on above: Performed By: #### F T4, TSH, VITD, FT3 #### [facility] [address], [place] [id number] TSHon 11-09-2021 TSH 0.298 uIU/mL Low 0.400-4.500 [facility] Call Center Coordinator Comment on above: Performed By: #### F T4, TSH, VITD, FT3 #### [facility] [address], [place] [id number] Vitamin D 25-OHon 11-09-2021 VIT D 25 OH 53 ng/ml Normal >29 [facility] Comment on above: Result Comment: Bernie min D Status Deficiency <20 ng/mL Insufficiency 20-29 ng/mL Optimal 30-100 ng/mL Possible Toxicity >=150 ng/mL Performed By: #### F T4, TSH, VITD, FT3 #### [facility] [address], [place] [id number] Social History Date Type Detail Facility Start: 09-21-2023 End: 02-24-2024 Alcohol intake Lifetime non-drinker (finding) [facility] Work Phone: Start: 09-11-2023 End: 02-24-2024 Exposure to SARS-CoV-2 (event) Not sure [facility] Start: 09-08-2023 Sexual orientation Heterosexual (sangita becker) [facility] Work Phone: Start: 04-06-2023 End: 02-20-2024 Sex Assigned At Female [facility] Start: 04-06-2023 End: 02-20-2024 History of Social function [facility] Start: 05-13-2022 End: 09-21-2023 Tobacco smoking status NHIS Never smoked tobacco 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 Start: 11-13-2019 End: 09-21-2023 Tobacco use and exposure Smokeless tobacco non-user [facility] Start: 1965 Sex Assigned At Not on file [facility] Tobacco smoking status Never [facility] NEGATED: Highlighted rowStart: WHITLEYF History of tobacco use Passive smoker [facility] Work Phone: Vital Signs Date Time Vital Sign Value Performing Clinician Facility 02-20-2024 11:59-0400 Body mass index (BMI) [Ratio] 34.6 kg/m2 Minoo Hernandez MD Work Phone: [facility] 02-20-2024 11:59-0400 Body temperature 97 [degF] Minoo Hernandez MD Work Phone: [facility] 02-20-2024 11:59-0400 Body weight 85.8 kg Minoo Hernandez MD Work Phone: [facility] 02-20-2024 11:59-0400 Diastolic blood pressure 72 mm[Hg] Minoo Hernandez MD Work Phone: [facility] 02-20-2024 11:59-0400 Heart rate 73 /min Minoo Hernandez MD Work Phone: [facility] 02-20-2024 11:59-0400 Respiratory rate 16 /min Minoo Hernandez MD Work Phone: [facility] 02-20-2024 11:59-0400 SaO2% (BldA) [Mass fraction] 97 % Minoo Hernandez MD Work Phone: [facility] 02-20-2024 11:59-0400 Systolic blood pressure 110 mm[Hg] Minoo Hernandez MD Work Phone: [facility] 01-19-2024 11:16-0400 Body temperature 97.3 [degF] Minoo Hernandez MD Work Phone: [facility] 01-19-2024 11:16-0400 Diastolic blood pressure 62 mm[Hg] Minoo Hernandez MD Work Phone: [facility] 01-19-2024 11:16-0400 Heart rate 52 /min Minoo Hernandez MD Work Phone: [facility] 01-19-2024 11:16-0400 Respiratory rate 16 /min Minoo Hernandez MD Work Phone: [facility] 01-19-2024 11:16-0400 Systolic blood pressure 115 mm[Hg] Minoo Hernandez MD Work Phone: [facility] 01-19-2024 11:13-0400 SaO2% (BldA) [Mass fraction] 98 % Minoo Hernandez MD Work Phone: [facility] [facility] 01-19-2024 06:25-0400 Body mass index (BMI) [Ratio] 34.68 kg/m2 Minoo Hernandez MD Work Phone: [facility] 01-19-2024 06:25-0400 Body weight 86 kg Minoo Hernandez MD Work Phone: [facility] 01-18-2024 10:54-0400 Blood Pressure Location Haider Sarmini [facility] 01-18-2024 10:54-0400 Diastolic blood pressure 70 mm[Hg] Haider Sarmini [facility] 01-18-2024 10:54-0400 Heart rate 72 /min Haider Sarmini [facility] 01-18-2024 10:54-0400 Respiratory rate 16 /min Haider Sarmini [facility] 01-18-2024 10:54-0400 Systolic blood pressure 106 mm[Hg] Haider Sarmini [facility] 12-06-2023 11:07-0500 Body height 157.5 cm Kely Crain FILTERING MACHINE TENDER HELPER-TRANSPORTER RADIOLOGY Work Phone: 0(404)[phone] [place] [address] 12-06-2023 11:07-0500 Body mass index (BMI) [Ratio] 33.65 kg/m2 Kely Crain FILTERING MACHINE TENDER HELPER-TRANSPORTER RADIOLOGY Work Phone: 2(379)264-300646 [place] [address] 12-06-2023 11:07-0500 Body weight 83.46 kg Kely Crain FILTERING MACHINE TENDER HELPER-TRANSPORTER RADIOLOGY Work Phone: 2(675)798-824046 [place] [address] 12-06-2023 11:07-0500 Diastolic blood pressure 75 mm[Hg] Kely Crain FILTERING MACHINE TENDER HELPER-TRANSPORTER RADIOLOGY Work Phone: 7(049)412-727746 [place] [address] 12-06-2023 11:07-0500 Heart rate 74 /min Kely Crain FILTERING MACHINE TENDER HELPER-TRANSPORTER RADIOLOGY Work Phone: 5(115)[phone] [place] [address] 12-06-2023 11:07-0500 Respiratory rate 16 /min Kely Crain FILTERING MACHINE TENDER HELPER-TRANSPORTER RADIOLOGY Work Phone: 4(891)320-881746 [place] [address] 12-06-2023 11:07-0500 Systolic blood pressure 127 mm[Hg] Kely Crain FILTERING MACHINE TENDER HELPER-TRANSPORTER RADIOLOGY Work Phone: 7(693)905-320146 [place] [address] 11-14-2023 10:48-0500 Blood Pressure Location Haider Sarmini [facility] 11-14-2023 10:48-0500 Diastolic blood pressure 78 mm[Hg] Haider Sarmini [facility] 11-14-2023 10:48-0500 Heart rate 80 /min Haider Sarmini [facility] 11-14-2023 10:48-0500 Respiratory rate 18 /min Haider Sarmini [facility] 11-14-2023 10:48-0500 Systolic blood pressure 120 mm[Hg] Haider Sarmini [facility] 11-07-2023 15:55-0500 Body mass index (BMI) [Ratio] 34.44 kg/m2 Minoo Hernandez MD Work Phone: [facility] 11-07-2023 15:55-0500 Body temperature 97.3 [degF] Minoo Hernandez MD Work Phone: [facility] 11-07-2023 15:55-0500 Body weight 85.4 kg Minoo Hernandez MD Work Phone: [facility] 11-07-2023 15:55-0500 Diastolic blood pressure 73 mm[Hg] Minoo Hernandez MD Work Phone: [facility] 11-07-2023 15:55-0500 Heart rate 82 /min Minoo Hernandez MD Work Phone: [facility] 11-07-2023 15:55-0500 Respiratory rate 14 /min Minoo Hernandez MD Work Phone: [facility] 11-07-2023 15:55-0500 Systolic blood pressure 106 mm[Hg] Minoo Hernandez MD Work Phone: [facility] 10-26-2023 12:57-0500 Body height 157.5 cm Kely BAUMANN Work Phone: [facility] 10-26-2023 12:57-0500 Body mass index (BMI) [Ratio] 32.92 kg/m2 Kely BAUMANN Work Phone: [facility] 10-26-2023 12:57-0500 Body weight 81.65 kg Kely Crain FILTERING MACHINE TENDER HELPER-TRANSPORTER RADIOLOGY Work Phone: [facility] 10-26-2023 12:57-0500 Diastolic blood pressure 70 mm[Hg] Kely Crain FILTERING MACHINE TENDER HELPER-TRANSPORTER RADIOLOGY Work Phone: [facility] 10-26-2023 12:57-0500 Heart rate 76 /min Kely Crain FILTERING MACHINE TENDER HELPER-TRANSPORTER RADIOLOGY Work Phone: [facility] 10-26-2023 12:57-0500 Respiratory rate 16 /min Kely Crain FILTERING MACHINE TENDER HELPER-TRANSPORTER RADIOLOGY Work Phone: [facility] 10-26-2023 12:57-0500 Systolic blood pressure 96 mm[Hg] Kely Crain FILTERING MACHINE TENDER HELPER-TRANSPORTER RADIOLOGY Work Phone: [facility] 10-06-2023 14:50-0500 Diastolic blood pressure 67 mm[Hg] Vance Baires MD Work Phone: [facility] 10-06-2023 14:50-0500 Heart rate 81 /min Vance Baires MD Work Phone: [facility] 10-06-2023 14:50-0500 Respiratory rate 17 /min Vance Baires MD Work Phone: [facility] 10-06-2023 14:50-0500 SaO2% (BldA) [Mass fraction] 97 % Vance Baires MD Work Phone: [facility] 10-06-2023 14:50-0500 Systolic blood pressure 105 mm[Hg] Vance Baires MD Work Phone: [facility] 10-06-2023 14:20-0500 Body temperature 96.69 [degF] Vance Baires MD Work Phone: [facility] 10-06-2023 12:12-0500 Body height 160 cm Vance Baires MD Work Phone: [facility] 10-06-2023 12:12-0500 Body mass index (BMI) [Ratio] 31.53 kg/m2 Vance Baires MD Work Phone: [facility] 10-06-2023 12:12-0500 Body weight 80.74 kg Vance Baires MD Work Phone: [facility] 09-21-2023 10:36-0500 Body mass index (BMI) [Ratio] 32.65 kg/m2 Hermes Montelongo APRN-TRANSPORTER RADIOLOGY Work Phone: [facility] 09-21-2023 10:36-0500 Body temperature 98.1 [degF] Hermes Montelongo APRN-TRANSPORTER RADIOLOGY Work Phone: [facility] 09-21-2023 10:36-0500 Body weight 83.6 kg Hermes Montelongo FILTERING MACHINE TENDER HELPER-TRANSPORTER RADIOLOGY Work Phone: [facility] 09-21-2023 10:36-0500 Diastolic blood pressure 69 mm[Hg] Hermes Montelongo APRN-TRANSPORTER RADIOLOGY Work Phone: [facility] 09-21-2023 10:36-0500 Heart rate 85 /min Hermes Montelongo APRN-TRANSPORTER RADIOLOGY Work Phone: [facility] 09-21-2023 10:36-0500 Respiratory rate 16 /min Hermes Montelongo FILTERING MACHINE TENDER HELPER-TRANSPORTER RADIOLOGY Work Phone: [facility] 09-21-2023 10:36-0500 SaO2% (BldA) [Mass fraction] 98 % Hermes Montelongo APRN-TRANSPORTER RADIOLOGY Work Phone: [facility] 09-21-2023 10:36-0500 Systolic blood pressure 101 mm[Hg] Hermes Montelongo APRN-TRANSPORTER RADIOLOGY Work Phone: [facility] 05-12-2023 13:45-0400 Blood Pressure Location Reeves SALAM [facility] 05-12-2023 13:45-0400 Body temperature 97.88 [degF] Reeves SALAM [facility] 05-12-2023 13:45-0400 Diastolic blood pressure 75 mm[Hg] Reeves SALAM [facility] 05-12-2023 13:45-0400 Heart rate 69 /min Reeves SALAM [facility] 05-12-2023 13:45-0400 Respiratory rate 16 /min Reeves SALAM [facility] 05-12-2023 13:45-0400 Systolic blood pressure 111 mm[Hg] Reeves SALAM [facility] 01-12-2023 10:45-0400 Blood Pressure Location Reeves SALAM [facility] 01-12-2023 10:45-0400 Diastolic blood pressure 86 mm[Hg] Reeves SALAM [facility] 01-12-2023 10:45-0400 Heart rate 75 /min Reeves SALAM [facility] 01-12-2023 10:45-0400 Respiratory rate 16 /min Reeves SALAM [facility] 01-12-2023 10:45-0400 Systolic blood pressure 124 mm[Hg] Reeves SALAM [facility] 05-13-2022 13:18-0400 Blood Pressure Location Reeves SALAM [facility] 05-13-2022 13:18-0400 Diastolic blood pressure 76 mm[Hg] Reeves SALAM [facility] 05-13-2022 13:18-0400 Heart rate 68 /min Reeves SALAM [facility] 05-13-2022 13:18-0400 Respiratory rate 16 /min Reeves SALAM [facility] 05-13-2022 13:18-0400 Systolic blood pressure 110 mm[Hg] Reeves SALAM [facility] Functional Status Date Assessment Result Facility 01-18-2024 Functional Status N/A [facility] 11-14-2023 Functional Status N/A [facility] 05-12-2023 Functional Status N/A [facility] 01-12-2023 Functional Status N/A [facility] 05-13-2022 Functional Status N/A [facility] Clinical Notes 03-02-2022 to 02-24-2024 [...] mentioned that she was seen by her cell operation supervisor for her hair loss, Workup was suspicious [...] Past Surgical History: Procedure Laterality Date APPENDECTOMY 1983 SECTION, LOW TRANSVERSE 2001 COLONOSCOPY 12/29/2020 DILATION [...] in the note. documented in this encounter [facility] Work Phone: 02-20-2024 History of Present illness [...] No hx of OCPs , Dr. Almeida HAND ROLLER ENGRAVER in [facility] up to date. Family History: -Cousin with [id number] mutation. -Maternal aunt with BRCA2 pathogenic mutation [...] age, at 68. -Paternal cousin with cancer idz-oweobpkma-pzvztwdrn at unknown age. -Two paternal cousins once removed with brain cancer, at 27 and 25 respectively. -Paternal grandmother of ovarian cancer at unknown age. -Two paternal great aunt with cancer jhi-fsuvakmyg-ewzegrkpy at unknown age. Interval Doing well post [...] continue well woman care with her primary obstetrics/gynecology nurse. I will see her back as needed. documented in this encounter [facility] Work Phone: 01-18-2024 History and physical note History Of Present Illness Nithya De Dios is a 58 y.o. female newly diagnosed BRCA2 mutation who presents for risk reducing BSO Medical History: Hypothyroidism Hypotension Primary Biliary Cholangitis Surgical History: age 36, open appendectomy through low transverse abdominal incision Tonsillectomy age 4 Social History: Non smoker Non drinker No illicit drugs Lives with AngieO. Obstetrics/Gynecology History: Menopause age 41, no HRT Menarche age 14 No hx of OCPs , Dr. Almeida HAND ROLLER ENGRAVER in [facility] up to date. Oncology History No history [...] discussed with Dr. Mary Omer MD PGY-2 [facility] Work Phone: 01-18-2024 History and physical [...] No hx of OCPs , Dr. Almeida HAND ROLLER ENGRAVER in [facility] up to date. Oncology History No history [...] Omer MD PGY-2 documented in this encounter [facility] Work Phone: 01-18-2024 Hospital Note Formatting of t his note might be different from the original. [X] QASIM richards/Dr. Hernandez February 19 @ 12:00 [facility] 58 year old female with newly diagnosed [...] No hx of OCPs , Dr. Almeida HAND ROLLER ENGRAVER in [facility] up to date. [facility] Work Phone: 01-18-2024 Miscellaneous Notes [X] QASIM richards/Dr. Hernandez February 19 @ 12:00 [facility] 58 year old female with newly diagnosed [...] No hx of OCPs , Dr. Almeida HAND ROLLER ENGRAVER in [facility] up to date. documented in this encounter [facility] Work Phone: 12-06-2023 History of Present illness Narrative Nithya De Dios female 1965 58 y.o. [id number] Chief Complaint Biopsy consultation, abnormal MRI History [...] directed ultrasound and biopsy as indicated. 03/30/2023 [facility], Bilateral screening mammogram, indicates BI-RADS Category 1. [...] LIMITED RIGHT; 12/06/2023 1:04 pm ACCESSION NUMBER(S): [id number] ORDERING CLINICIAN: KELY CRAIN INDICATION: MRI directed ultrasound of an enhancing right breast mass. BRCA 2 gene mutation. Family history of breast cancer. COMPARISON: Correlation with breast MRI 11/24/2023 and mammogram 03/30/2023. FINDINGS: A targeted ultrasound of the entire lower outer right breast was performed by a registered chronometer repairer and Dr. Garett Quevedo using elastography. An [...] the time of exam and Kely Crain TRANSPORTER RADIOLOGY. A message was sent to the referring [...] FULL PROTOCOL; 11/24/2023 10:13 am ACCESSION NUMBER(S): [id number] ORDERING CLINICIAN: KELY CRAIN INDICATION: High-risk supplemental [...] independent workstation, 3-D images were formulated using [employer] including time enhancement curves, subtraction images and [...] dictation regarding these critical findings using the [employer] system. A pre-procedure form was filled out. [...] breast MRI guided biopsy. Ativan sent to requested pharmacy for biopsy. Patient Discussion/Summary I recommend [...] call. If you receive medical information from [facility] Personal Health Record, it is possible to [...] health record. To sign up go to [email or web address]. If you need assistance with signing up or trouble getting into your account call [employer] Patient Line 25/04 at [phone]. Should you have any questions or concerns after biopsy, please do not hesitate to call my office at [phone]. If it has been more than a week since your biopsy was performed and you have not received results, please call my office at [phone]. Thank you for choosing [facility] and trusting me as your healthcare provider. I am honored to be a provider on your health care team and I remain dedicated to helping you achieve your health goals. IBIS Solomon documented in this encounter [facility] Work Phone: 12-06-2023 Instructions IBIS Solomon - [...] call. If you receive medical information from [facility] Health Record, it is possible to [...] health record. To sign up go to [email or web address]. If you need assistance with signing up or trouble getting into your account call [employer] Patient Line 25/04 at [phone]. Should you have any questions or concerns after biopsy, please do not hesitate to call my office at [phone]. If it has been more than a week since your biopsy was performed and you have not received results, please call my office at [phone]. Thank you for choosing [facility] and trusting me as your healthcare provider. I am honored to be a provider on your health care team and I remain dedicated to helping you achieve your health goals. documented in this encounter [facility] Work Phone: 11-25-2023 Note 1. Indeterminate rig ht breast mass. Surgical consultation, MRI directed ultrasound and possible biopsy is recommended. If there is no sonographic correlate, an MRI guided biopsy is recommended. A message was sent to the referring practitioner at the time of this dictation regarding these critical findings using the [employer] notification system. A pre-procedure form was filled out. 2. No MRI evidence of malignancy in the left breast. Method of Detection: Category Smri - Screening MRI BI-RADS CATEGORY: BI-RADS Category: 4 Suspicious. Recommendation: Surgical Consultation and Biopsy. Recommended Date: Immediate. Laterality: Right. For any future breast imaging appointments, please call [phone] ([phone]). MACRO: Critical Finding: Breast Imaging Abnormality. Notification was initiated on 11/25/2023 at 1:43 pm by Garett Quevedo. (-YCF-) Instructions: Surgical Consultation and Imaging Guided Biopsy. Signed by: Lia Bunch 11/25/2023 2:02 PM Dictation workstation: [id number] [facility] 11-07-2023 History of Present illness Narrative Patient [...] No hx of OCPs , Dr. Almeida HAND ROLLER ENGRAVER in [place] up to date. Family History: -Cousin with VTMP5rublopaprf mutation. -Maternal aunt with BRCA2 pathogenic mutation [...] age, at 68. -Paternal cousin with cancer mxq-ohbuvszct-rmvwlscaf at unknown age. -Two paternal cousins once removed with brain cancer, at 27 and 25 respectively. -Paternal grandmother of ovarian cancer at unknown age. -Two paternal great aunt with cancer rvc-hrtgnztjd-nsmnnpkbg at unknown age. Objective BSA: 1.93 meters [...] -Will send for PAT -Schedule laparoscopic BSO, [facility] -Consent signed Aurelio Resendiz MD Seen with Dr. Hernandez documented in this encounter [facility] Work Phone: 10-26-2023 History of Present illness Narrative Nithya De Dios female 1965 58 y.o. [id number] Chief Complaint High risk evaluation History Of [...] Cholangitis). She follows with Gastroenterology. BREAST IMAGIN03/30/2023 [facility], Bilateral screening mammogram, indicates BI-RADS Category 1. [...] IS VERY IMPORTANT TO YOUR HEALTH. THE [employer] [place] [employer] GUIDELINES RECOMMEND THAT WOMEN 40 [...] health record. To sign up go to [email or web address]. If you need assistance with signing up or trouble getting into your account call [employer] Patient Line 25/04 at [phone]. My office phone number is [phone] if you need to get in touch with me or have additional questions or concerns. Thank you for choosing [facility] and trusting me as your healthcare provider. I look forward to seeing you again at your next office visit. I am honored to be a provider on your health care team and I remain dedicated to helping you achieve your health goals. IBIS Solomon documented in this encounter [facility] Work Phone: 10-26-2023 Instructions IBIS Solomon - [...] health record. To sign up go to [email or web address]. If you need assistance with signing up or trouble getting into your account call [employer] Patient Line 25/04 at [phone]. My office phone number is [phone] if you need to get in touch with me or have additional questions or concerns. Thank you for choosing [facility] and trusting me as your healthcare provider. I look forward to seeing you again at your next office visit. I am honored to be a provider on your health care team and I remain dedicated to helping you achieve your health goals. documented in this encounter [facility] Work Phone: 10-06-2023 Attending History and physical [...] schedule for EUS. Total time 22 minutes. [facility] Work Phone: 10-06-2023 History and physical note [...] time 22 minutes. documented in this encounter [facility] Work Phone: 10-05-2023 History of Present illness [...] time 22 minutes. documented in this encounter [facility] Work Phone: 09-21-2023 History of Present illness [...] No hx of OCPs , Dr. Almeida HAND ROLLER ENGRAVER in [facility] up to date. Family History: -Cousin with [id number] mutation. -Maternal aunt with BRCA2 pathogenic mutation [...] age, at 68. -Paternal cousin with cancer znx-tpfvudyqa-zogdgjihq at unknown age. -Two paternal cousins once removed with brain cancer, at 27 and 25 respectively. -Paternal grandmother of ovarian cancer at unknown age. -Two paternal great aunt with cancer gaf-milatzboa-rrrriefmm at unknown age. Objective Visit Vitals BP [...] and then surgery. documented in this encounter [facility] Work Phone: 05-06-2023 Miscellaneous Notes Fibroscan w Ekpa 4.8 Us stable Pt sent the following MCM regarding US and fibroscan results: I didn t see these results in my chart for the [facility], so I am sending them. Can you see that Dr. Mandeep Martin sees these? Pt uploaded images of results under scanned docs. Results not viewable in Care Everywhere at this time. See scanned docs for results review. Annette Molina RN May 05, 2023 12:16 PM documented in this encounter [facility] 2023 Miscellaneous Notes Pt notified via [...] 2023 10:17 AM documented in this encounter [facility] 04-06-2023 Note HNO ID: [id number] Author: Yas Meza MD Service: ? Author Type: Physician Type: Progress Notes Filed: 04/10/2023 8:40 AM Note Text: VIRTUAL VISIT PROGRESS NOTE This is a virtual visit using [employer] video visit. It required patient-provider interaction for the medical decision making as documented below. I have communicated my name and active licensure. The patient's identity and physical location were verified at the time of this visit. Either the patient or their legal sales representative gas service has been informed of the risks and benefits of -- and alternatives to -- treatment through a remote evaluation and consents to proceed with the evaluation remotely. 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, after initial evaluation for persistent pruritus but nl liver enzymes -s/p liver biopsy done at [facility] 07/06/2013 w early stage disease Restarted [...] 09/2019 -s/p T+A -s/p appy age 18 -O5A4-1-3-3, s/p CS x 1 -h/o hypothyroidism -h/o osteopenia -h/o pre-diabetes Since last seen -labs done 03/28/23 at [facility] Ast [address] Alt 58 Alkphos 150 Alb 3.5 T bili 0.3 -s/p mammogram done - wnl -s/p BMD done last at [facility] - told osteopenia, but no worse -weight stable ~ 175#, 5'2 (BMI 31.1) -continuing on malathi (1250 mg/d , equivalent to [id number] mg/kg/d) along w fenofibrate, ocaliva (2.5) - worried about increasing itching -had fibroscan done at [facility] ~ 1 -2 yrs HISTORY REVIEWED [...] early stage fibrosis if any; repeated at [facility] (?results) Last BMD done at [facility] 12/2019 -> osteropenia (unchanged) Still w mildly elevated alk phos on labs; concerned re risk of pruritus if increased dose of ocaliva vs loose stools Long discussion today regarding issues and options PLAN: Suggested: 1. PBC -continue malathi dose (1250 mg/d ) - Continue fenofibrate at current dose -continue current dose of ocaliva -repeat VCTE (vs ARFII) at [facility]; if no change in Ekpa, would hold off on making any dose changes, but if suggestion of worsening,would have a low threshold to incr dose -serial labs -BMD locally per protocol Follow-up on the phone RTC ~1 yr Yas Meza MD [facility] 04-06-2023 History of Present illness Narrative VIRTUAL VISIT PROGRESS NOTE This is a virtual visit using [employer] video visit. It required patient-provider interaction for the medical decision making as documented below. I have communicated my name and active licensure. The patient's identity and physical location were verified at the time of this visit. Either the patient or their legal sales representative gas service has been informed of the risks and benefits of -- and alternatives to -- treatment through a remote evaluation and consents to proceed with the evaluation remotely. 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, after initial evaluation for persistent pruritus but nl liver enzymes -s/p liver biopsy done at [facility] 07/06/2013 w early stage disease Restarted [...] 09/2019 -s/p T+A -s/p appy age 18 -J5S2-2-2-7, s/p CS x 1 -h/o hypothyroidism -h/o osteopenia -h/o pre-diabetes Since last seen -labs done 03/28/23 at [facility] Ast 32 Alt 58 Alkphos 150 Alb 3.5 T bili 0.3 -s/p mammogram done - wnl -s/p BMD done last at [facility] - told osteopenia, but no worse -weight stable ~ 175#, 5'2 (BMI 31.1) -continuing on malathi (1250 mg/d , equivalent to 15.6781859336 mg/kg/d) along w fenofibrate, ocaliva (2.5) - worried about increasing itching -had fibroscan done at [facility] ~ 1 -2 yrs HISTORY REVIEWED [...] early stage fibrosis if any; repeated at [facility] (?results) Last BMD done at [facility] 12/2019 -> osteropenia (unchanged) Still w mildly elevated alk phos on labs; concerned re risk of pruritus if increased dose of ocaliva vs loose stools Long discussion today regarding issues and options PLAN: Suggested: 1. PBC -continue malathi dose (1250 mg/d ) - Continue fenofibrate at current dose -continue current dose of ocaliva -repeat VCTE (vs ARFII) at [facility]; if no change in Ekpa, would hold off on making any dose changes, but if suggestion of worsening,would have a low threshold to incr dose -serial labs -BMD locally per protocol Follow-up on the phone RTC ~1 yr Yas Meza MD documented in this encounter [facility] 01-12-2023 Hospital Discharge instructions Follow Up Care 01/12/2023 11:12:44 With:Eh URIAS, JEFFREY Blandon, [facility] Address: [address] [place] [address], [address] [phone] [phone] When:3 months [facility] 01-04-2023 Miscellaneous Notes Received the following PIERIS [employer] message: Dr. Paradise Martin wanted to see lab results in 4 months Constanza Corona RN January 04, 2023 3:18 PM documented in this encounter [facility] 10-11-2022 Note HNO ID: [id number] Author: Yas Meza MD Service: ? Author Type: Physician Type: Progress Notes Filed: 10/15/2022 4:52 PM Note Text: VIRTUAL VISIT PROGRESS NOTE This is a virtual visit using [employer] video visit. It required patient-provider interaction for the medical decision making as documented below. 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, after initial evaluation for persistent pruritus but nl liver enzymes -s/p liver biopsy done at [facility] 07/06/2013 w early stage disease Restarted [...] 09/2019 -s/p T+A -s/p appy age 18 -P5W8-4-3-0, s/p CS x 1 -h/o hypothyroidism -h/o osteopenia -h/o pre-diabetes Since last seen -labs done 09/22 at [facility] Ast 30 Alt 53 Al[address]ph[address] 153 Alb 3.6 -weight still uptrending - now ~176 lbs/ 80kg -continuing on malathi (12.9844201762 mg/kg/d, given wgt =176), fenofibrate, ocaliva (2.5) [...] prob early stage fibrosis BMD done at [facility] 12/2019 -> osteropenia Mildly elevated alk [...] labs RTC ~6 months Yas Meza MD [facility] 10-11-2022 History of Present illness Narrative VIRTUAL VISIT PROGRESS NOTE This is a virtual visit using [employer] video visit. It required patient-provider interaction for the medical decision making as documented below. 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, after initial evaluation for persistent pruritus but nl liver enzymes -s/p liver biopsy done at [facility] 07/06/2013 w early stage disease Restarted [...] 09/2019 -s/p T+A -s/p appy age 18 -[id number], s/p CS x 1 -h/o hypothyroidism -h/o osteopenia -h/o pre-diabetes Since last seen -labs done 09/22 at [facility] Ast 30 Alt 53 [address] 153 Alb 3.6 -weight still uptrending - now ~176 lbs/ 80kg -continuing on malathi (12.0571012972 mg/kg/d, given wgt =176), fenofibrate, ocaliva (2.5) [...] prob early stage fibrosis BMD done at [facility] 12/2019 -> osteropenia Mildly elevated alk [...] Yas Meza MD documented in this encounter [facility] 05-13-2022 Evaluation + Plan note Diagnostic Tests PendingCB w/ Auto Diff 05/13/22Comprehensive Metabolic Panel 05/13/22 [facility] 03-03-2022 History of Present illness Narrative VIRTUAL VISIT PROGRESS NOTE This is a virtual visit using [employer] video visit. It required patient-provider interaction for the medical decision making as documented below. Nithya De Dios is a 56 year old female seen for followup of PBC, diagnosed ~12/2005, after initial evaluation for persistent pruritus but nl liver enzymes -s/p liver biopsy done at [facility] 07/06/2013 w early stage disease Restarted [...] 09/2019 -s/p T+A -s/p appy age 18 -A2J5-9-7-0, s/p CS x 1 -h/o hypothyroidism -h/o osteopenia Since last seen -recent labs done done at [facility] 02/18/202209/2021 AST 46 35 ALT 85 [...] early stage fibrosis Last BMD done at [facility] 12/2019 -> osteropenia Mildly elevated liver [...] Yas Meza MD documented in this encounter [facility] 03-02-2022 Miscellaneous Notes Called Nithya De Dios to remind them of an appointment with Dr. Meza on 03/03/22. Spoke with patient. Appointment confirmed. documented in this encounter [facility] Evaluation + Plan note Future Appointments Appointment Date:01/18/2024 10:45:00 AM Scheduled Provider:Leandro BILL MD Location:[facility] Appointment Type:BADH Follow Up Future Scheduled TestsVitamin D 25 Hydroxy 01/12/23CBC w/ Auto Diff 01/12/23Hepatic Function Panel 01/12/23BD Bone Density DEXA Peripheral Study 01/12/23 [facility] Evaluation + Plan note Future Appointments Appointment Date:01/18/2024 10:45:00 AM Scheduled Provider:Leandro BILL MD Location:[facility] Appointment Type:BADH Follow Up Future Scheduled TestsVitamin D 25 Hydroxy 01/12/23CBC w/ Auto Diff 01/12/23Hepatic Function Panel 01/12/23BD Bone Density DEXA Peripheral Study 03/04/23 [facility] Evaluation + Plan note Future Appointments Appointment Date:11/14/2023 10:00:00 AM Scheduled Provider:Vitaly Stauffer MD Location:[facility] Appointment Type:BADH Follow Up Appointment Date:01/18/2024 10:45:00 AM Scheduled Provider:Leandro BILL MD Location:[facility] Appointment Type:BADH Follow Up Future Scheduled TestsVitamin D 25 Hydroxy 01/12/23CBC w/ Auto Diff 01/12/23Hepatic Function Panel 01/12/23BD Bone Density DEXA Peripheral Study 03/04/23 [facility] Evaluation + Plan note Future Appointments Appointment Date:01/18/2024 11:00:00 AM Scheduled Provider:Vitaly Stauffer MD Location:[facility] Appointment Type:BAD Follow Up Future Scheduled TestsVitamin D 25 Hydroxy 01/12/23CBC w/ Auto Diff 01/12/23Hepatic Function Panel 01/12/23BD Bone Density DEXA Peripheral Study 03/04/23 [facility] Evaluation + Plan note Future Appointments Appointment Date:04/18/2024 10:15:00 AM Scheduled Provider:Vitaly Stauffer MD Location:[facility] Appointment Type:[facility] Follow Up Future Scheduled TestsCBC w/ Auto Diff 01/18/24Comprehensive Metabolic Panel 01/18/24BD Bone Density DEXA Peripheral Study 03/04/23 [facility] Evaluation note Diagnosis Primary biliary cholangitis (HCC) documented in this encounter [facility] note* Diagnosis Primary biliary cholangitis (HCC)- [facility] Diagnosis Primary biliary cholangitis (HCC)- Primary documented in this encounter [facility] note* Diagnosis Primary biliary cholangitis (HCC)- Primary documented in this encounter [facility] note* Diagnosis BRCA positive- Primary Genetic susceptibility to malignant neoplasm of breast documented in this encounter [facility] Work Phone: Evaluation note* Diagnosis BRCA positive- Primary 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) documented in this encounter [facility] Work Phone: Evaluation note* Diagnosis BRCA positive 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) documented in this encounter [facility] Work Phone: Evaluation note* Diagnosis Breast cancer screening, high risk patient- Primary Screening mammogram for high-risk patient BRCA2 gene mutation positive documented in this encounter [facility] Work Phone: Evaluation note* Diagnosis BRCA gene mutation positive- Primary BRCA positive Genetic susceptibility to malignant neoplasm of breast BRCA gene mutation positive- Primary BRCA gene mutation positive documented in this encounter [facility] Work Phone: [phone] note* Diagnosis BRCA gene mutation positive- Primary BRCA2 gene mutation positive Breast cancer screening, high risk patient Screening mammogram for high-risk patient BRCA gene mutation positive documented in this encounter [facility] Work Phone: [phone] note* Diagnosis BRCA gene mutation positive- Primary BRCA2 gene mutation positive Breast cancer screening, high risk patient Screening mammogram for high-risk patient BRCA gene mutation positive documented in this encounter [facility] Work Phone: [phone] note* Diagnosis BRCA gene mutation positive- Primary Abnormal MRI, breast- Primary Mass of lower outer quadrant of right breast Situational anxiety BRCA gene mutation positive documented in this encounter [facility] Work Phone: [phone] note* Diagnosis BRCA gene mutation positive- Primary Abnormal findings on diagnostic imaging of breast Other (abnormal) findings on radiological examination of breast BRCA gene mutation positive documented in this encounter [facility] Work Phone: [phone] note* Diagnosis BRCA gene mutation positive- Primary Abnormal MRI Other nonspecific (abnormal) findings on radiological and other examinations of body structure BRCA gene mutation positive documented in this encounter [facility] Work Phone: [phone] note* Diagnosis BRCA gene mutation positive- Primary Abnormal MRI Other nonspecific (abnormal) findings on radiological and other examinations of body structure BRCA gene mutation positive documented in this encounter [facility] Work Phone: [phone] note* Diagnosis BRCA gene mutation positive- Primary Abnormal MRI, breast Mass of lower outer quadrant of right breast BRCA gene mutation positive documented in this encounter [facility] Work Phone: [phone] note* Diagnosis BRCA gene mutation positive- Primary Abnormal mammogram Abnormal mammogram, unspecified BRCA gene mutation positive documented in this encounter [facility] Work Phone: [phone] note* Diagnosis BRCA gene mutation positive- Primary BRCA gene mutation positive Postoperative pain Other acute postoperative pain documented in this encounter [facility] Work Phone: Evaluation note* Diagnosis BRCA positive- Primary Genetic susceptibility to malignant neoplasm of breast documented in this encounter [facility] Work Phone: Evaluation note* Diagnosis Hypothyroidism, unspecified type- Primary Vitamin D deficiency documented in this encounter [facility] Work Phone: Hospital course Narrative No data available for this section [facility] Hospital Discharge instructions No data available for this section [facility] Progress note No data available for this section [facility] Reason for referral (narrative)* Diagnostic Procedure Only (Routine) - Pending Review Specialty Diagnoses / Procedures Referred By Rosaura gonzalez Referred To Contact US IMAGING Diagnoses Primary biliary cholangitis (HCC) Procedures US ELASTOGRAPHY LIVER ULTRASOUND ELASTOGRAPHY PARENCHYMA Yas Meza MD [address] [place] [address] Us Imaging Referral ID Status Reason Start Date Expiration Date Visits Requested Visits Authorized [id number] Pending Review Auto-Generat ed Referral 2023 05/06/2024 1 1 * Diagnostic Procedure Only (Routine) - Pending Review Specialty Diagnoses / Procedures Referred By Rosaura gonzalez Referred To Contact US IMAGING Diagnoses Primary biliary cholangitis (HCC) Procedures US ABD RIGHT UPPER QUADRANT US ABDOMINAL REAL TIME W/IMAGE LIMITED Yas Meza MD [address] [place] [address] Us Imaging Referral ID Status Reason Start Date Expiration Date Visits Requested Visits Authorized [id number] Pending Review Auto-Generat ed Referral 2023 05/06/2024 1 1 [facility] for referral (narrative) , with dr. roz ryan at for PBC Referred by: Eh URIAS, Vitaly Hernandes [facility] Summary Purpose Family History [...] BI breast biopsy clip imaging Kely Crain FILTERING MACHINE T[employer] [facility] [address] [place] [address] Referral ID Status Reason Start Date Expiration Date Visits Requested Visits Authorized [id number] Authorized Perform Procedure 12/06/2023 12/05/2024 1 1 Specialty Diagnoses / Procedures Referred By Contac t Referred To Contact Radiology Diagnoses Abnormal MRI Procedures BI US breast limited right Kely Crain [employer]ACHINE [employer] [facility] [address] [place] [address] Referral ID Status Reason Start Date Expiration Date Visits Requested Visits Authorized [id number] Authorized Perform Procedure 11/25/2023 11/24/2024 1 1 Specialty Diagnoses / Procedures Referred By Contac t Referred To Contact Radiology Diagnoses Abnormal findings on diagnostic imaging of breast Procedures BI breast biopsy clip imaging Kely Crain FILTERING MACHINE T[employer] [address] [place] [address] Referral ID Status Reason Start Date Expiration Date Visits Requested Visits Authorized [id number] Authorized Perform Procedure 11/25/2023 11/24/2024 1 1 Specialty Diagnoses / Procedures Referred By Contac t Referred To Contact Radiology Diagnoses Abnormal MRI, breast Mass of lower outer quadrant of right breast Procedures BI MR breast vacuum assisted biopsy Kely Crain FILTERING MACHINE T[employer] [facility] [address] [place] [address] Referral ID Status Reason Start Date Expiration Date Visits Requested Visits Authorized [id number] Authorized Perform Procedure 12/06/2023 12/05/2024 1 1 Specialty Diagnoses / Procedures Referred By Contac t Referred To Contact Radiology Diagnoses BRCA2 gene mutation positive Breast cancer screening, high risk patient Procedures MR breast bilateral w contrast full protocol Kely Crain, FILTERING MACHINE T[employer] [address] [place] [address] Referral ID Status Reason Start Date Expiration Date Visits Requested Visits Authorized [id number] Pending Review Perform Procedure 10/26/2023 10/25/2024 1 1 Specialty Diagnoses / Procedures Referred By Contac t Referred To Contact Radiology Diagnoses BRCA2 gene mutation positive Breast cancer screening, high risk patient Procedures BI mammo bilateral screening tomosynthesis Kely Crain, FILTERING MACHINE T[employer] [address] [place] [address] Referral ID Status Reason Start Date Expiration Date Visits Requested Visits Authorized [id number] Authorized Perform Procedure 10/26/2023 10/25/2024 1 1 Specialty Diagnoses / Procedures Referred By Contac t Referred To Contact Gastroenterology Diagnoses 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) Procedures Endoscopic Ultrasound (Upper) [place] [address] [address] [facility] Department [place] [address] Referral ID Status Reason Start Date Expiration Date V isits Requested Visits Authorized [id number] Authorized 10/05/2023 10/04/2024 1 1 Additional Source Comments Source Comments (unrecognize d section and content) In the event this informatio n is protected by the Federal Confidentiality of Alcohol and Drug Abuse Patient Records regulations: The Federal rules restrict any use of the information to criminally investigate or prosecute any alcohol or drug abuse patient.[facility] the event this information is protected by the Federal Confidentiality of Alcohol and Drug Abuse Patient Records regulations: The Federal rules restrict any use of the information to criminally investigate or prosecute any alcohol or drug abuse patient.[facility] the event this information is protected by the Federal Confidentiality of Alcohol and Drug Abuse Patient Records regulations: The Federal rules restrict any use of the information to criminally investigate or prosecute any alcohol or drug abuse patient.[facility] the event this information is protected by the Federal Confidentiality of Alcohol and Drug Abuse Patient Records regulations: The Federal rules restrict any use of the information to criminally investigate or prosecute any alcohol or drug abuse patient.[facility] the event this information is protected by the Federal Confidentiality of Alcohol and Drug Abuse Patient Records regulations: The Federal rules restrict any use of the information to criminally investigate or prosecute any alcohol or drug abuse patient.[facility] the event this information is protected by the Federal Confidentiality of Alcohol and Drug Abuse Patient Records regulations: The Federal rules restrict any use of the information to criminally investigate or prosecute any alcohol or drug abuse patient.[facility] the event this information is protected by the Federal Confidentiality of Alcohol and Drug Abuse Patient Records regulations: The Federal rules restrict any use of the information to criminally investigate or prosecute any alcohol or drug abuse patient.[facility] the event this information is protected by the Federal Confidentiality of Alcohol and Drug Abuse Patient Records regulations: The Federal rules restrict any use of the information to criminally investigate or prosecute any alcohol or drug abuse patient.[facility] Reason for Visit (unrecogniz ed section and content) Reason Comments Liver Disease Specialty Diagnoses / Procedures Referred By Rosaura t Referred To Contact [facility] Diagnoses Primary biliary cholangitis (HCC) [K74.3] Procedures REFERRAL TO [facility] Video visit Yas Meza MD [address] [place] [address] [address] Referral ID Status Reason Start Date Expiration Date Visits Requested Visits Authorized [id number] Closed Financial Clearance Required - OON Payor OON Notification Letter Patient cleared - OON Required Payment Collected 03/23/2022 10/11/2022 1 1 Reason Comments Appointment Specialty Diagnoses / Procedures Referred By Contact Referred To Contact Gastroenterology / GASTROENTEROLOGY Diagnoses Primary bilary cholangitis Procedures REFERRAL TO [facility] EST VIRTUAL VISIT PATIENT Yas Meza MD [address] [place] [address] [place] [address] [place] [address] Referral ID Status Reason Start Date Expiration Date Visits Requested Visits Authorized [id number] Closed Financial Clearance Required - Self Pay Financial Clearance Required - OON Payor OON Notification Letter Patient Cleared Patient chose to pay or Auth obtained after CCN denied 10/13/2021 01/11/2022 1 1 Reason Comments Orders Reason Comments Results Specialty Diagnoses / Procedures Referred By Contac t Referred To Contact [facility] Diagnoses Primary biliary cholangitis (HCC) Procedures virtual visit Yas Meza MD [address] [place] [address] [address] Referral ID Status Reason Start Date Expiration Date V isits Requested Visits Authorized [id number] Closed OON/Self Pay Override 01/18/2023 04/19/2023 1 1 Reason Comments Results Specialty Diagnoses / Procedures Referred By Contac t Referred To Contact Gastroenterology Diagnoses 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) Procedures Endoscopic Ultrasound (Upper) [place] [address] [facility] Department [place] [address] Referral ID Status Reason Start Date Expiration Date V isits Requested Visits Authorized [id number] Authorized 10/05/2023 10/04/2024 1 1 Reason Comments New Patient Visit High Risk Breast Cancer Specialty Diagnoses / Procedures Referred By Contac t Referred To Contact Surgical Oncology Diagnoses BRCA[place] [address] Department [place] [address] Referral ID Status Reason Start Date Expiration Date Visits Requested Visits Authorized [id number] Authorized Specialty Services Required 09/06/2023 09/05/2024 1 1 Reason Comments Follow-up Specialty Diagnoses / Procedures Referred By Contac t Referred To Contact Radiology Diagnoses BRCA2 gene mutation positive Breast cancer screening, high risk patient Procedures MR breast bilateral w contrast full protocol Kely Crain FILTERING MACHINE TENDER [employer] [facility] [address] [place] [address] Referral ID Status Reason Start Date Expiration Date Visits Requested Visits Authorized [id number] Authorized Perform Procedure 10/26/2023 10/25/2024 1 1 Reason Comments Abnormal Breast Imaging Specialty Diagnoses / Procedures Referred By Contac t Referred To Contact Radiology Diagnoses Abnormal findings on diagnostic imaging of breast Procedures BI breast biopsy clip imaging Kely Crain FILTERING MACHINE T[employer]ER [employer] [address] [place] [address] Referral ID Status Reason Start Date Expiration Date Visits Requested Visits Authorized [id number] Authorized Perform Procedure 11/25/2023 11/24/2024 1 1 Specialty Diagnoses / Procedures Referred By Contac t Referred To Contact Radiology Diagnoses Abnormal MRI Procedures BI US breast limited right Kely Crain FILTERING MACHINE TENDER [employer] [address] [place] [address] Referral ID Status Reason Start Date Expiration Date Visits Requested Visits Authorized [id number] Authorized Perform Procedure 11/25/2023 11/24/2024 1 1 Specialty Diagnoses / Procedures Referred By Contac t Referred To Contact Radiology Diagnoses Abnormal MRI Procedures BI US guided breast localization and biopsy right Sengrosetta Kely Mariam, FILTERING MACHINE TENDER [employer] [facility] [address] [id number] Referral ID Status Reason Start Date Expiration Date Visits Requested Visits Authorized [id number] Canceled Perform Procedure 11/25/2023 11/24/2024 1 1 Specialty Diagnoses / Procedures Referred By Contac t Referred To Contact Radiology Diagnoses Abnormal MRI, breast Mass of lower outer quadrant of right breast Procedures BI MR breast vacuum assisted biopsy Sengrosetta Kely D, FILTERING MACHINE TENDER [employer] [address] [facility] [address] [phone] Referral ID Status Reason Start Date Expiration Date Visits Requested Visits Authorized [id number] Authorized Perform Procedure 12/06/2023 12/05/2024 1 1 Specialty Diagnoses / Procedures Referred By Contac t Referred To Contact Radiology Diagnoses Abnormal mammogram Procedures BI breast biopsy clip imaging SengKely sargent, FILTERING MACHINE TENDER HEL[employer] [facility] [address] [id number] Referral ID Status Reason Start Date Expiration Date Visits Requested Visits Authorized [id number] Authorized Perform Procedure 12/06/2023 12/05/2024 1 1 Specialty Diagnoses / Procedures Referred By Contac t Referred To Contact Diagnoses BRCA gene mutation positive BRCA gene mutation positive [Z15.01, Z15.09] Procedures ND LAPAROSCOPY W/RMVL ADNEXAL STRUCTURES Laparoscopic Bilateral [place] [address] [place] [address] [facility] Asif Durant [address] [place] [address] Referral ID Status Reason Start Date Expiration Date Visits Re quested Visits Authorized [id number] 1 1 Care Teams (unrecognized sec tion and content) Pairer Relationship Specialty Start Date End Date Alok Choi Jr. [facility] [address] [id number] PCP - General 04/21/06 Pairer Relationship Specialty Start Date End Date Maria De Jesus Alok Neftali Kaplan [address] [place] [address] PCP - General 04/21/06 Pairer Relationship Specialty Start Date End Date Alok Choi Neftali Kaplan [address] [place] [address] PCP - General 04/21/06 Pairer Relationship Specialty Start Date End Date Maria De JesusAlok Jr. [address] [place] [address] PCP - General 04/21/06 Pairer Relationship Specialty Start Date End Date Maria De JesusAlok Jr. [address] [place] [address] PCP - General 04/21/06 Pairer Relationship Specialty Start Date End Date Maria De JesusAlok Jr. [address] [place] [address] PCP - General 04/21/06 Pairer Relationship Specialty Start Date End Date Maria De JesusAlok Jr. [address] [place] [address] PCP - General 04/21/06 Pairer Relationship Specialty Start Date End Date Shaikh Guo MD [address] [place] [address] PCP - General Internal Medicine 09/08/23 Pairer Relationship Specialty Start Date End Date Shaikh Guo MD [address] [place] [address] PCP - General Internal Medicine 09/08/23 Pairer Relationship Specialty Start Date End Date Shaikh Guo MD [address] [place] [address] PCP - General Internal Medicine 09/08/23 Pairer Relationship Specialty Start Date End Date Shaikh Guo MD [address] [place] [address] PCP - General Internal Medicine 09/08/23 [place] [address] [place] [address] [employer] 11/07/23 Pairer Relationship Specialty Start Date End Date Shaikh Guo MD PCP - General Internal Medicine 09/08/23 [place] [address] [place] [address] [employer] 11/07/23 Pairer Relationship Specialty Start Date End Date Shaikh Guo MD PCP - General Internal Medicine 09/08/23 [place] [address] [place] [address] [employer]ne[employer] 11/07/23 Pairer Relationship Specialty Start Date End Date Shaikh Guo MD PCP - General Internal Medicine 09/08/23 [place] [address] [place] [address] [employer] 11/07/23 Pairer Relationship Specialty Start Date End Date Shaikh Guo MD PCP - General Internal Medicine 09/08/23 [place] [address] [place] [address] [employer]ne[employer] 11/07/23 Pairer Relationship Specialty Start Date End Date Shaikh Guo MD PCP - General Internal Medicine 09/08/23 [place] [address] [place] [address] [employer]ne[employer] 11/07/23 Pairer Relationship Specialty Start Date End Date Shaikh Guo MD PCP - General Internal Medicine 09/08/23 [place] [address] [place] [address] [employer] 11/07/23 Pairer Relationship Specialty Start Date End Date Shaikh Guo MD [address] [place] [address] PCP - General Internal Medicine 12/20/23 [place] [address] [place] [address] [employer]ne[employer] 11/07/23 Pairer Relationship Specialty Start Date End Date Shaikh Guo MD [address] [place] [address] PCP - General Internal Medicine 12/20/23 [place] [address] [place] [address] [employer] Ob[employer]s [employer] Gyne[employer] 11/07/23 Pairer Relationship Specialty Start Date End Date Shaikh Guo MD [address] [place] [address] PCP - General Internal Medicine 12/20/23 [place] [address] [place] [address] [employer]ne[employer] 11/07/23 Pairer Relationship Specialty Start Date End Date Shaikh Guo MD [address] [place] [address] PCP - General Internal Medicine 12/20/23 [place] [address] [place] [address] [employer] Ob[employer] Gyne[employer] 11/07/23 Pairer Relationship Specialty Start Date End Date Shaikh Guo MD [address] [place] [address] PCP - General Internal Medicine 12/20/23 [place] [address] [place] [address] [employer] Ob[employer]s [employer] Gynecology 11/07/23 INFORMATION SOURCE (unrecogn ized section and content) DATE CREATED AUTHOR 03/29/2022 [facility] dical Specialist DATE CREATED AUTHOR AUTHOR'S ORGANIZ ATION 01/08/2023 [facility] DATE CREATED AUTHOR AUTHOR'S ORGANIZ ATION 05/07/2023 [facility] DATE CREATED AUTHOR AUTHOR'S ORGANIZ ATION 12/29/2023 [facility] DATE CREATED AUTHOR AUTHOR'S ORGANIZ ATION 01/19/2024 [facility] DATE CREATED AUTHOR AUTHOR'S ORGANIZ ATION 02/28/2024 [facility] DATE CREATED AUTHOR AUTHOR'S ORGANIZ ATION 02/28/2024 [facility] DATE CREATED AUTHOR AUTHOR'S ORGANIZ ATION 02/29/2024 [facility] dical Specialists EPIC Scheduled Active and Recently Administ ered Medications (unrecognized section and content) Medication Order 01/17/2024 01/18/2024 01/19/2024 lidocaine (Xylocaine) 10 mg/mL (1 %) injection 1 mg 1 mg (0.1 mL), subcutaneous, Once, On Mallory 01/19/24 at 1015, For 1 dose, Recovery (only), To be used for IV insertion ONLY 101 (Due) oxygen (O2) therapy inhalation, Continuous - Inhalation, First dose on Mallory 01/19/24 at 1015, Recovery (only), Device: Nasal Cannula, Rate in liters per minute: 2 LPM, Keep O2 Sat Above: 92% 1015 (Due)1999 (Due) Continuous Medication Order 01/17/2024 01/18/2024 01/19/2024 lactated Ringer's infusion 100 mL/hr, intravenous, Continuous, Starting on Mallory 01/19/24 at 1015, Recovery (only) 1015 (Due) lactated [...] needed, nausea/vomiting, second line, Starting on Mallory 24 at 0958, For 1 dose, Recovery (only), Monitor QTc while on therapy (2 lead monitoring) HYDROmorphone (Dilaudid) injection 0.2 mg 0.2 mg, intravenous, Every 5 min PRN, pain moderate (4-6), first line, Starting on Mallory 01/18/24 at 0958, Recovery (only), Max total of 4 mg regardless of dose. HYDROmorphone (Dilaudid) injection 0.5 mg 0.5 mg, intravenous, Every 5 min PRN, pain severe (7-10), first line, Starting on Mallory 01/18/24 at 0958, Recovery (only), Max total of 4 mg regardless of dose. 1018 (Given - Provid er: Alessandra Manriquez RN) meperidine PF (Demerol) injection 12.5 mg 12.5 mg, intravenous, Every 10 min PRN, shivering, Starting on Mallory 01/18/24 at 0958, Recovery (only) ondansetron (Zofran) injection 4 mg 4 mg, intravenous, Once as needed, nausea/vomiting, first line, Starting on Mallory 24 at 0958, For 1 dose, Recovery (only), When administering via IV Push, administer over 3-5 minutes. oxyCODONE (Roxicodone) immediate release tablet 5 mg 5 mg, oral, Every 4 hours PRN, pain mild (1-3), first line, Starting on Mallory 18/24 at 0958, Recovery (only), When able to [...] BE BASED ON THE PRIMARY CLINICAL RECORDS. [employer] [facility]. provides no warranty or guarantee of the accuracy or completeness of information in this document.
== END 2024-03-14 09:04 | disposition home or self-care (01) ==
LOC: LAB 09:04
PROVIDERS: PCP Internal Medicine
DX: K74.3 Primary biliary cirrhosis (principal); R74.8 Abnormal levels of other serum enzymes
CPT/HCPCS: 36415

== ENCOUNTER 2024-08-07 09:16 | Outpatient (OUT) | payer OTHER, SELFPAY ==
--- OUTSIDE RECORDS SUMMARY | 2024-08-07 09:39 | XMS_ITS | CCD ---
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 Primary Care Provider BRANT, GRAVES Primary Care Physician Alok Choi Jr. Primary Care Provider ASHAM, REEVES Admitting Unavailable SALAM, REEVES Attending Unavailable [...] CHOI JR Primary Care Unavail able YAS MEZA Attending Unavailable YAS MEZA Referring Unavailable ALOK CHOI JR Primary Care Unavail able O'MARTIN, YAS S Attending Unavailable Brant URIAS, [facility] Primary Care Provider Brant URIAS, [facility] Primary Care Provider Minoo Hernandez MD Unavailable Brant URIAS, [facility] Primary Care Provider Brant URIAS, [facility] Primary Care Provider HERMES JOHNSON Attending Unavailable HERMES JOHNSON Attending Unavailable YOGESH GONZALEZ M Attending Unavailable [facility] Primary Care Unavailable ANGELY KENT Attending Unavailable ADOLFO RAMIREZ Attending Unavailable ADOLFO RAMIREZ Referring Unavailable ANGELY KENT Attending Unavailable ANGELY KENT Referring Unavailable KELY CRAIN Attending Unavailable NICOLE GUZMAN Referring Unavailable [facility] Primary Care Unavailable EMRICK, KELY D Referring Unavailable [facility] Primary Care Unavailable EMRICK KELY D Attending Unavailable [facility] Primary Care Unavailable EMRICK, KELY D Referring Unavailable [facility] Primary Care Unavailable EMRICK, KELY D Referring Unavailable [facility] Primary Care Unavailable EMRICK, KELY D Referring Unavailable [facility] Primary Care Unavailable EMRICK, KELY D Referring Unavailable [facility] Primary Care Unavailable EMRICK, KELY D Attending Unavailable EMRICK, KELY D Referring Unavailable [facility] Primary Care Unavailable EMRICK, KELY D Referring Unavailable [facility] Primary Care Unavailable ARNULFO RYAN Admitting Unavailable GHARNULFO LORENZO Attending Unavailable GHARNULFO LORENZO M Referring Unavailable Vitaly Stauffer Talal Attending Unavaila ble Vitaly Stauffer Talal Attending Unavaila ble [facility] Primary Care Unavailable Florin Staufferhammad Talal Attending Unavaila ble Vitaly Stauffer Talal Attending Unavaila ble [facility] Primary Care Unavailable GILBERT WATSON Attending Unavailable MINOO HERNANDEZ Attending Unavailable [facility] Primary Care Unavailable MINOO HERNANDEZ Admitting Unavailable MINOO HERNANDEZ Attending Unavailable [facility] Primary Care Unavailable KELY CRAIN Referring Unavailable [facility] Primary Care Unavailable KELY CRAIN Referring Unavailable [facility] Primary Care Unavailable MINOO HERNANDEZ Referring Unavailable [facility] Primary Care Unavailable [facility] Primary Care Unavailable MINOO HERNANDEZ Attending Unavailable [facility] Primary Care Unavailable [facility] Primary Care [facility]available [facility] Primary Care Unavailable ARNULFO RYAN Attending Unavailable [facility] Primary Care Unavailable LYNDON QUINN Attending Unavailable [facility] Primary Care Unavailable HERMES MONTELONGO Attending Unavailable [facility] Primary Care Unavailable VANCE GARCIA Attending Unavailable HERMES JOHNSON Referring Unavailable [facility] Primary Care Unavailable RADHA VANCE Attending Unavailable RADHA, VANCE Referring Unavailable [facility] Primary Care Provider Allergies Allergy Classification Reported Allergen(s) Allergy Type Date of Onset Reaction(s) Facility (19 sources) rifAMPin; Translations: [RIFAMPIN] Drug Allergy 06-15-20 06 Rash, Itching [facility] (20 sources) Sulfonamides (Antibiotic); Translations: [SULFA (SULFONAMIDE ANTIBIOTICS)] Drug Allergy 09-18-20 19 Other: See Marilyn, Anny [facility] (9 sources) Sulfonamides (Antibiotic); Translations: [sulfa drugs] Drug allergy allergy [facility] (1 source) Sulfonamides (Antibiotic) Drug allergy (disorder) 06-28-20 13 [facility] (1 source) ALLERGIES NOT ON FILE; Translations: [ALLERGIES NOT ON FILE] Propensity to adverse reactions (disorder) [place] [address] Repository (1 source) rifAMPin Drug Allergy 06-15-20 06 Itching, Rash [facility] (1 source) Sulfamethoxazole / Trimethoprim Drug Allergy 03-30-20 [facility] (1 source) Sulfanilamide Allergy to substance 03-30-20 [facility] Medications Current Medications Medication Drug Class(es) Dates [...] to 50 doses. 50 tablet 01/19/2024 Active ascorbic acid 60 mg / beta carotene 5000 unt / copper sulfate 40 mg / dl-alpha tocopheryl acetate 30 unt / sodium selenite 0.04 mg / zinc oxide 40 mg oral tablet (1 source) Vitamin C Multiple Vitamin (Multivitamin Adult) tablet as directed Orally Active Calcium (1 source) Phosphate Binder, Calcium CALCIUM PO Take by mouth Active calcium carbonate 1250 mg / cholecalciferol [...] (only) calcium citrate 500 mg oral tablet (8 sources) Start: 11-17-2020 take 500 mg by [...] QTc while on therapy (2 lead monitoring) ergocalciferol 1.25 mg oral capsule (10 sources) Provitamin D2 Compound Start: 07-09-2024 End: 10-01-2024 take 1 capsule by mouth every week ergocalciferol (Vitamin D2) 1.25 MG (93864 UT) capsule Indications: Avitaminosis D Take 1 capsule (1.25 mg) by mouth 1 (one) time per week 12 capsule 07/09/2024 10/01/2024 Active Start: 03-29-2024 End: 07-05-2024 ergocalciferol (Vitamin D2) 1.25 MG (01913 UT) capsule 03/29/2024 07/05/2024 Discontinued (Reorder) Start: 11-09-2019 ergocalciferol 50,000 unit capsule (VITAMIN D2, DRISDOL) TK 1 C PO TWICE A WEEK ON TUESDAY AND TUESDAY 0 11/09/2019 Active Comment on above: TK 1 C PO TWICE A WE EK ON TUESDAY AND TUESDAY fenofibrate 145 mg oral tablet (20 sources) Peroxisome Proliferator Receptor alpha Agonist Start: End: 5 take 0.5 tablet by mouth every other day fenofibrate 145 mg Tab 1/2 tab(s), Oral, Every other day, X 90 day(s), # 90 tab(s), Refills(s) 3, Pharmacy: [facility] [id number], 160, cm, 01/18/24 10:59:00 EDT, Height/Length Dosing, 86, kg, 01/18/24 10:59:00 EDT, Weight Dosing Start Date: 01/18/24 Stop Date: 01/12/25 Status: Ordered Start: 10-14-2022 End: 04-12-2023 take 0.5 tablet by mouth every other day fenofibrate 145 mg Tab 1/2 tab(s), Oral, Every other day, X 90 day(s), # 90 tab(s), Refills(s) 1, Pharmacy: [facility] [id number], 160, cm, 05/13/22 13:20:00 EDT, Height/Length Dosing, 76.6, kg, 05/13/22 13:20:00 EDT, Weight Dosing Start Date: 10/14/22 Stop Date: 04/12/23 Status: Ordered Start: 09-15-2021 take 0.5 tablet by m out once daily fenofibrate 145 mg Tab 1/2 tab(s), Oral, Daily, # 30 tab(s), Refills(s) 4, Pharmacy: [id number], 160, cm, 09/15/21 14:38:00 EST, [...] once daily. 0 Active Multivitamins and Minerals (8 sources) Start: 11-17-2020 take 1 tablet by [...] Daily, # 30 tab(s), Refills(s) 0, Pharmacy: [facility], 160, cm, 01/12/23 10:47:00 EDT, Height/Length Dosing, 84.6, kg, 01/12/23 10:47:00 EDT, Weight Dosing Start Date: 01/12/23 Status: Ordered Start: 10-21-2021 End: 10-16-2022 take 1 tablet by mouth once daily Ocaliva 5 mg oral tablet 5 mg = 1 tab(s), Oral, Daily, X 90 day(s), # 90 tab(s), Refills(s) 3, Pharmacy: [facility], 160, cm, 09/15/21 14:38:00 EST, Height/Length Dosing, 75.6, kg, 09/15/21 14:38:00 EST, Weight Dosing Start Date: 10/21/21 Stop Date: 10/16/22 Status: Ordered Start: 09-15-2021 take 0.5 tablet by m outh once daily Ocaliva 5 mg oral tablet 1/2, Oral, Daily, # 15 tab(s), Refills(s) 11, Pharmacy: [id number], 160, cm, 09/15/21 14:38:00 EST, Height/Length [...] O2 Sat Above: 92% polyethylene glycol 3350 25979 mg powder for oral solution (3 sources) Osmotic Laxative Start: 01-19-2024 polyethylene glycol (Glycolax, Miralax) 17 gram packet Indications: Postoperative pain Take 17 g by mouth once daily as needed (for constipation) for up to 10 doses. 10 packet 01/19/2024 Active predniSONE 10 mg oral tablet (1 source) Start: 04-23-2024 predniSONE (Deltasone) 10 MG tablet Indications: Plantar fasciitis, left , Inflammatory heel pain, left , Calcaneal spur, left , Difficulty walking 1 tablet twice daily x 7 days; followed by 1 tablet daily as directed until complete 21 tablet 04/23/2024 Active traMADol hydrochloride 50 mg oral tablet [...] sources) Bile Acid Start: 09-15-2021 End: 01-12-2025 ursodiol (Actigall) 500 MG tablet 03/14/2024 Active Start: 12-29-2020 take 1 tablet by sara [...] day(s), # 12 cap(s), Refills(s) 3, Pharmacy: [facility] [id number], 160, cm, 05/12/23 13:51:00 EDT, Height/Length Dosing, 83.4, kg, 05/12/23 13:51:00 EDT, Weight Dosing Start Date: 05/12/23 Stop Date: 05/06/24 Status: Ordered Start: 04-18-2023 End: 05-18-2023 Vitamin D 50,000 intl units (1.25 mg) oral capsule 50,000 International_Unit, Oral, qWeek, X 30 day(s), # 4 cap(s), Refills(s) 0, Pharmacy: [facility] [id number], 160, cm, 01/12/23 10:47:00 EDT, Height/Length Dosing, 84.6, kg, 01/12/23 10:47:00 EDT, Weight Dosing Start Date: 04/18/23 Stop Date: 05/18/23 Status: Ordered Start: 09-09-2022 take 1 capsule by mouth once V itamin D 50,000 intl units (1.25 mg) oral capsule See Instructions, 1 cap(s) Oral As Directed tuesday-Tuesday as previously prescribed per Dr. Bill., # 24 cap(s), Refills(s) 1, Pharmacy: [facility] [id number], 160, cm, 05/13/22 13:20:00 EDT, Height/Length Dosing, 76.6, kg, 05/13/22 13:20:00 EDT, Weight Dosing Start Date: 09/09/22 Status: Ordered Start: 09-09-2022 take 1 capsule by mouth once V itamin D 50,000 intl units (1.25 mg) oral capsule See Instructions, 1 cap(s) Oral As Directed tuesday-Tuesday as previously prescribed per Dr. Bill., # 24 cap(s), Refills(s) 1, Pharmacy: [facility] [id number], 160, cm, 05/13/22 13:20:00 EDT, Height/Length Dosing, 76.6, kg, 05/13/22 13:20:00 EDT,... Start Date: 09/09/22 Status: Ordered Start: 09-15-2021 Vitamin D 50,0 00 intl units (1.25 mg) oral capsule 50,000 International_Unit, Oral, As Directed, # 24 cap(s), Refills(s) 0, Pharmacy: [place] [id number], 160, cm, 09/15/21 14:38:00 EST, Height/Length Dosing, [...] affected ar ea(s) twice daily PRN itch gadoterate meglumine (Dotarem) 0.5 mmol/mL contrast injection [...] 0, Thyroid Start Date: 01/22/16 Status: Ordered levothyroxine (S ynthroid, Levoxyl) 112 MCG tablet 1 (one) time each day at the same time. Active take 1 capsule by mo uth once [...] STATES] Onset: 09-22-2022 Chronic Nonmalignant breast conditions (1 source) Fibrocystic disease of breast; Translations: [Diffuse cystic mastopathy of unspecified breast] Onset: 03-30-2023 03-30-2023 Chronic Nutritional deficiencies (18 sources) Vitamin D deficiency; Translations: [Vitamin D deficiency, unspecified] Onset: 01-12-2023 Chronic Other and unspecified benign neoplasm (13 sources) History of polyp of colon; Translations: [Personal history of colonic polyps] Onset: 05-13-2022 Episodic Other bone disease and musculoskeletal deformities (3 sources) Disorder of bone; Translations: [Other specified disorders of bone density and structure, unspecified site] Onset: 05-12-2023 Episodic Other bone disease and musculoskeletal deformities (4 sources) Osteopenia 05-12-2023 Episodic Other liver diseases (20 sources) Primary biliary cholangitis; Translations: [Primary biliary cirrhosis] Onset: 01-21-2021 01-21-2021 Chronic Other liver diseases (8 sources) Primary biliary cirrhosis; Translations: [PRIMARY BILIARY CIRRHOSIS] Onset: 01-07-2023 Chronic Other nervous system disorders (1 source) Difficulty walking; Translations: [Difficulty in walking, not elsewhere classified] Onset: 03-30-2023 03-30-2023 Chronic Other nervous system disorders (1 source) Mortons neuroma of right foot; Translations: [Lesion of plantar nerve, right lower limb] Onset: 03-30-2023 03-30-2023 Chronic Other nervous system disorders (1 source) Right foot neuritis; Translations: [Unspecified mononeuropathy of right lower limb] Onset: 03-30-2023 03-30-2023 Chronic Other nervous system disorders (1 source) Chronic pain; Translations: [Other chronic pain] Onset: 03-30-2023 03-30-2023 Chronic Other nervous system disorders (1 source) Postoperative pain ; Translations: [Other acute postprocedural pain] 01-19-2024 Episodic Other nutritional; endocrine; and metabolic disorders (20 sources) Obesity; Translations: [Obesity, unspecified] Onset: 10-06-2023 10-06-2023 Chronic Other screening for suspected conditions (not mental disorders or infectious disease) (4 sources) MRI scan abnormal; Translations: [Abnormal findings on diagnostic imaging of other specified body structures] Onset: 12-06-2023 12-06-2023 Chronic Other screening for suspected conditions (not mental disorders or infectious disease) (19 sources) Encounter for screening for diabetes mellitus; Translations: [Imaging of abdomen abnormal] Onset: 02-24-2022 Episodic Residual codes; unclassified (3 sources) BRCA2 gene mutation positive; Translations: [Genetic susceptibility to malignant neoplasm of breast] 10-26-2023 Episodic Thyroid disorders (18 sources) Hypothyroidism; Translations: [Hypothyroidism, unspecified] Onset: 05-13-2022 Chronic Unclassified (1 source) Non-smoker 04-26-2024 Past or Other Problems Problem Classification Problem Date Documented Date Episodic/Chronic Allergic reactions (8 sources) Contact dermatitis; Translations: [Unspecified contact dermatitis, unspecified cause] Onset: 10-30-2006 10-30-2006 Episodic Immunizations and screening for infectious disease (18 sources) Anti-nuclear factor positive; Translations: [Other specified abnormal immunological findings in serum] Onset: 01-21-2021 01-21-2021 Episodic Malaise and fatigue (1 source) Other fatigue; Translations: [OTHER FATIGUE] Onset: 09-30-2022 Episodic Nonmalignant breast conditions (5 sources) Lump in lower outer quadrant of right breast; Translations: [Unspecified lump in the right breast, lower outer quadrant] Onset: 12-06-2023 12-06-2023 Episodic Other and unspecified benign neoplasm (1 source) Personal history of colonic polyps; Translations: [PERSONAL HISTORY OF COLONIC POLYPS] Onset: 09-30-2022 Episodic Other connective tissue disease (9 sources) Decrease in height; Translations: [Loss of height] Onset: 01-21-2021 01-21-2021 Episodic Other inflammatory condition of skin (9 sources) Pruritus of skin; Translations: [Pruritus, unspecified] Onset: 10-30-2006 10-30-2006 Episodic Other injuries and conditions due to external causes (9 sources) H/O: fracture; Translations: [Personal history of (healed) traumatic fracture] Onset: 01-21-2021 01-21-2021 Episodic Other nervous system disorders (2 sources) Other acute postprocedural pain; Translations: [Other acute postprocedural pain] Onset: 01-19-2024 Episodic Residual codes; unclassified (20 sources) 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; Translations: [Genetic susceptibility to malignant neoplasm of breast] Onset: 09-21-2023 09-21-2023 Episodic Residual codes; unclassified (2 sources) Family history of carrier of genetic disease; Translations: [Family history of carrier of genetic disease] Onset: 08-09-2023 Episodic Residual codes; unclassified (4 sources) Genetic susceptibility to malignant neoplasm of breast; Translations: [Genetic susceptibility to malignant neoplasm of breast] Onset: 10-26-2023 Episodic Residual codes; unclassified (4 sources) Genetic susceptibility to other malignant neoplasm; Translations: [Genetic susceptibility to other malignant neoplasm] Onset: 10-26-2023 Episodic Unclassified (20 sources) Onset: 09-08-2023 09-08-2023 Viral infection (1 source) Bilateral plantar wart; Translations: [Plantar wart] Onset: 03-30-2023 03-30-2023 Episodic Results Test Name Value Interpretation Reference Range Facility CBC W Auto Differential pane l (Bld)on 05-08-2024 Basophils (Bld) [#/Vol] 0.06 x10*3/uL Normal 0.00-0.10 [facility] Comment on above: Performed By: #### 5 7021-8 ####ASHLY Cobb ([id number])[facility] ([facility])[id number] [facility] [place] [address] Basophils/100 WBC (Bld) 0.8 % Normal 0.0-2.0 [facility] Comment on above: Performed By: #### 5 7021-8 ####ASHLY Cobb ([id number])[facility] ([facility])[address] [facility] [address] Eosinophils (Bld) [#/Vol] 0.16 x10*3/uL Normal 0.00-0.70 [facility] Comment on above: Performed By: #### 5 7021-8 ####ASHLY Cobb ([id number])[facility] ([facility])[address] [facility] [address] Eosinophils/100 WBC (Bld) 2.1 % Normal 0.0-6.0 [facility] Comment on above: Performed By: #### 5 7021-8 ####ASHLY Cobb ([id number])[facility] ([facility])[address] [facility] [address] Erythrocyte distribution width (RBC) [Ratio] 13.5 % Normal 11.5-14.5 [facility] Comment on above: Performed By: #### 5 7021-8 ####ASHLY Cobb ([id number])[facility] ([facility])[address] [facility] [address] Hematocrit (Bld) [Volume fraction] 41.8 % Normal 36.0-46.0 [facility] Comment on above: Performed By: #### 5 7021-8 ####ASHLY Cobb ([id number])[facility] ([facility])[address] [facility] [address] Hemoglobin (Bld) [Mass/Vol] 13.2 g/dL Normal 12.0-16.0 [facility] Comment on above: Performed By: #### 5 7021-8 ####ASHLY Cobb ([id number])[facility] ([facility])[address] [facility] [address] Immature granulocytes (Bld) [#/Vol] 0.04 x10*3/uL Normal 0.00-0.70 [facility] Comment on above: Performed By: #### 5 7021-8 ####ASHLY Cobb ([id number])[facility] ([facility])[address] [facility] [address] Immature granulocytes/100 WBC (Bld) 0.5 % Normal 0.0-0.9 [facility] Comment on above: Result Comment: Rea ture Granulocyte Count (IG) includes promyelocytes, myelocytes and metamyelocytes but does not include bands. Percent differential counts (%) should be interpreted in the context of the absolute cell counts (cells/UL). Performed By: #### 5 7021-8 ####ASHLY Cobb ([id number])[facility] ([facility])[address] [facility] [address] Lymphocytes (Bld) [#/Vol] 2.60 x10*3/uL Normal 1.20-4.80 [facility] Comment on above: Performed By: #### 5 7021-8 ####ASHLY Cobb ([id number])[facility] ([facility])[address] [place] [address] Lymphocytes/100 WBC (Bld) 33.7 % Normal 13.0-44.0 [facility] Comment on above: Performed By: #### 5 7021-8 ####ASHLY Cobb ([id number])[facility] ([facility])[address] [place] [address] MCH (RBC) [Entitic mass] 29.6 pg Normal 26.0-34.0 [facility] Comment on above: Performed By: #### 5 7021-8 ####ASHLY Cobb ([id number])[facility] ([facility])[address] [place] [address] MCHC (RBC) [Mass/Vol] 31.6 g/dL Low 32.0-36.0 [facility] Comment on above: Performed By: #### 5 7021-8 ####ASHLY Cobb ([id number])[facility] ([facility])[address] [place] [address] MCV (RBC) [Entitic vol] 94 fL Normal 80-100 [facility] Comment on above: Performed By: #### 5 7021-8 ####ASHLY Cobb ([id number])[facility] ([facility])[address] [place] [address] Monocytes (Bld) [#/Vol] 0.84 x10*3/uL Normal 0.10-1.00 [facility] Comment on above: Performed By: #### 5 7021-8 ####ASHLY Cobb ([id number])[facility] ([facility])[address] [place] [address] Monocytes/100 WBC (Bld) 10.9 % Normal 2.0-10.0 [facility] Comment on above: Performed By: #### 5 7021-8 ####ASHLY Cobb ([id number])[facility] ([facility])[address] [place] [address] Neutrophils (Bld) [#/Vol] 4.02 x10*3/uL Normal 1.20-7.70 [facility] Comment on above: Result Comment: Perc ent differential counts (%) should be interpreted in the context of the absolute cell counts (cells/uL). Performed By: #### 5 7021-8 ####ASHLY Cobb ([id number])[facility] ([facility])[address] [place] [address] Neutrophils/100 WBC (Bld) 52.0 % Normal 40.0-80.0 [facility] Comment on above: Performed By: #### 5 7021-8 ####ASHLY Cobb ([id number])[facility] ([facility])[address] [place] [address] Nucleated RBC/100 WBC (Bld) [Ratio] 0.0 /100 WBCs Normal 0.0-0.0 [facility] Comment on above: Performed By: #### 5 7021-8 ####ASHLY Cobb ([id number])[facility] ([facility])[address] [facility] [address] Platelets (Bld) [#/Vol] 348 x10*3/uL Normal 150-450 [facility] Comment on above: Performed By: #### 5 7021-8 ####ASHLY Cobb ([id number])[facility] ([facility])[address] [facility] [address] RBC (Bld) [#/Vol] 4.46 x10*6/uL Normal 4.00-5.20 [facility] Comment on above: Performed By: #### 5 7021-8 ####ASHLY Cobb ([id number])[facility] ([facility])[address] [facility] [address] WBC (Bld) [#/Vol] 7.7 x10*3/uL Normal 4.4-11.3 [facility] Comment on above: Performed By: #### 5 7021-8 ####ASHLY Cobb ([id number])[facility] ([facility])[address] [facility] [address] Comprehensive metabolic 2000 panelon 05-08-2024 Albumin BCP dye [Mass/Vol] 4.0 g/dL Normal 3.4-5.0 [facility] Comment on above: Performed By: #### 2 4323-8 ####ASHLY Cobb ([id number])[facility] ([facility])[address] [place] [address] ALP [Catalytic activity/Vol] 127 U/L High 33-110 [facility] Comment on above: Performed By: #### 2 4323-8 ####ASHLY Cobb ([id number])[facility] ([facility])[address] [place] [address] ALT With P-5'-P [Catalytic activity/Vol] 34 U/L Normal 7-45 [facility] Comment on above: Result Comment: Suzanne ents treated with Sulfasalazine may generate falsely decreased results for ALT. Performed By: #### 2 4323-8 ####ASHLY Cobb ([id number])[facility] ([facility])[address] [place] [address] Anion gap [Moles/Vol] 12 mmol/L Normal 10-20 [facility] Comment on above: Performed By: #### 2 4323-8 ####ASHLY Cobb ([id number])[facility] ([facility])[address] [place] [address] AST With P-5'-P [Catalytic activity/Vol] 23 U/L Normal 9-39 [facility] Comment on above: Performed By: #### 2 4323-8 ####ASHLY Cobb ([id number])[facility] ([facility])[address] [place] [address] Bilirubin [Mass/Vol] 0.4 mg/dL Normal 0.0-1.2 [facility] Comment on above: Performed By: #### 2 4323-8 ####ASHLY Cobb ([id number])[facility] ([facility])[address] [place] [address] Calcium [Mass/Vol] 9.3 mg/dL Normal 8.6-10.3 [facility] Comment on above: Performed By: #### 2 4323-8 ####ASHLY Cobb (10121)[facility] ([facility])[address] [place] [address] Chloride [Moles/Vol] 103 mmol/L Normal 98-107 [facility] Comment on above: Performed By: #### 2 4323-8 ####ASHLY Cobb ([id number])[facility] ([facility])[address] [place] [address] CO2 [Moles/Vol] 30 mmol/L Normal 21-32 [facility] Comment on above: Performed By: #### 2 4323-8 ####ASHLY Cobb (58913)[facility] ([facility])[address] [place] [address] Creatinine [Mass/Vol] 0.83 mg/dL Normal 0.50-1.05 [facility] Comment on above: Performed By: #### 2 4323-8 ####ASHLY Cobb ([id number])[facility] ([facility])[address] [place] [address] Glomerular filtration rate/1.73 sq M.predicted 82 mL/min/1.73m*2 Normal >60 [facility] Comment on above: Result Comment: Calc ulations of estimated GFR are performed using the 2020 CKD-EPI Study Refit equation without the race variable for the IDMS-Traceable creatinine methods. https://jasn.asnjournals.org/content/early//ASN.18988 49974 Performed By: #### 2 4323-8 ####ASHLY Cobb ([id number])[facility] ([facility])[address] [place] [address] Glucose [Mass/Vol] 99 mg/dL Normal 74-99 [facility] Comment on above: Performed By: #### 2 4323-8 ####ASHLY Cobb ([id number])[facility] ([facility])[address] [place] [address] Potassium [Moles/Vol] 4.5 mmol/L Normal 3.5-5.3 [facility] Comment on above: Performed By: #### 2 4323-8 ####ASHLY Cobb ([id number])[facility] ([facility])[address] [place] [address] Protein [Mass/Vol] 6.8 g/dL Normal 6.4-8.2 [facility] Comment on above: Performed By: #### 2 4323-8 ####ASHLY Cobb ([id number])[facility] ([facility])[address] [place] [address] Sodium [Moles/Vol] 140 mmol/L Normal 136-145 [facility] Comment on above: Performed By: #### 2 4323-8 ####ASHLY Cobb (85639)[facility] ([facility])[address] [place] [address] Urea nitrogen [Mass/Vol] 15 mg/dL Normal 6-23 [facility] Comment on above: Performed By: #### 2 4323-8 ####ASHLY Cobb (10185)[facility] ([facility])[address] [place] [address] Ambulatory Visit Summaryon 0 04-26-2024 Ambulatory Visit Summary Ambulatory Visit Summary NITHYA DE DIOS Teresa :1965 Visit Date:04/26/2024 Ambulatory Visit Instructions Your Diagnosis Non-smoker BMI 34.0-34.9,adult Your Care Team Attending Physician - GILBERT WATSON CNP Primary Care Physician - SHAIKH GUO MD This Is Your Medications List calcium citrate ergocalciferol (Vitamin D 50,000 intl units (1.25 mg) oral capsule) fenofibrate (fenofibrate 145 mg Tab) levothyroxine multivitamin with minerals (Multivitamins and Minerals) obeticholic acid (Ocaliva 5 mg oral tablet) ursodiol (ursodiol 500 mg Tab) Procedures Performed Mammography (03/30/2023), Mammography (03/25/2021), Colonoscopy (12/29/2020), Appendectomy, section, Tonsillectomy and adenoidectomy. Discharge Vitals Temperature (Temporal Artery) 36.5 ?C Heart Rate (Peripheral) 74 Respiratory Rate 18 Blood Pressure 128/84 Height 160.0 cm Height 63 in Weight 87.7 kg Weight 192.94 lb BMI 34.26 What to do next Scheduled Follow-Up Appointments Tuesday 10:15 AM EDT With: Eh URIAS, Vitaly Hernandes Where: [facility] [address] [place] [address] [address] [place], [place] [id number]- Medications What How Much When Why Instructions Unchanged calcium citrate 500 Milligram By Mouth 2 times a day Unchanged ergocalciferol (Vitamin D 50,000 intl units (1.25 mg) oral capsule) 50,000 International unit By Mouth Every week Duration: 90 Days Unchanged fenofibrate (fenofibrate 145 mg Tab) 1/2 tab(s) By Mouth Every other day Primary biliary cholangitis Duration: 90 Days Unchanged levothyroxine 175 Microgram By Mouth As Directed Unchanged multivitamin with minerals (Multivitamins and Minerals) 1 tab By Mouth Every day Unchanged obeticholic acid (Ocaliva 5 mg oral tablet) See instructions Primary biliary cholangitis 2.5 mg= 1/ 2 tablet Oral Daily Unchanged ursodiol (ursodiol 500 mg Tab) 1 Tablets By Mouth 2 times a day Duration: 30 Days with food Allergies sulfa drugs (allergy) Problems Ongoing - Any problem that you are currently receiving treatment for. Abnormal US (ultrasound) of abdomen Hypothyroidism Non-smoker Osteopenia Personal history of colonic polyps Primary biliary cholangitis Vitamin D deficiency Patient Survey You may receive a survey via text or e-mail asking about your office visit. Please share your experience with us by completing your survey. We appreciate your feedback and thank you for choosing us for your care. Normal [facility] Family Medicine Office/Clini c Noteon 04-26-2024 Family Medicine Office/Clinic Note Family Medicine Office/Clinic Note HPI Staff Nithya is a 59 year old female presenting with wanting to establish care Establish Care: History: Any previous diagnosis: colongolitis, [place], Hypothyroidism History of seeing any specialist: rohan [place], When was your last doctors visit: 6 months ago Last provider: Dr. Guo Any recent labs: a month ago. ( [facility] [place] or [facility] Maintenance UTD: Colonoscopy: 3 years ago Mammogram: 04/24/24 Pelvic/Pap: last week had this done Acute: Current issues/complaints: none History of Present Illness 59 year old patient presents today to establish care. She states she was a previous patient of Dr. 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 She reports she had her ovaries & fallopian tubes surgically removed in January 2024.She is retired from [employer] and reports her son will be coming to see this provider too. She denies needing any medication refills and states she will most likely only be coming once yearly for a well visit. Review of Systems PHQ Score Initial Depression Screen Score: 0 SCORE Physical Exam Vitals & Measurements T: 36.5 ?C(Temporal Artery) HR: 74(Peripheral) RR: 18 BP: 128/84 SpO2: 98% HT: 63 in HT: 160.0 cm WT: 87.7 kg WT: 192.94 lb BMI: 34.26 General: alert, no acute distress Skin: warm, dry Head: no trauma, normocephalic Neck: Trachea midline, no adenopathy, no tenderness Eye: normal conjunctiva, sclera clear ENMT: TM's clear, oral mucosa moist, no pharyngeal erythema or exudate Cardiovascular: regular rate and rhythm, normal peripheral perfusion Respiratory: Lungs CTA, respirations non labored Chest wall: no deformity. Gastrointestinal: soft, non distended, no tenderness, no guarding. Back: No tenderness, Normal ROM, Normal alignment. Extremities: no deformity, no trauma Neurological: oriented x 4, LOC appropriate for age, CN II-XII intact, motor strength equal & normal bilaterally, sensation equal & normal bilaterally, speech normal Psychiatric: cooperative, affect appropriate for age, normal judgement, normal psychiatric thoughts. Assessment/Plan 1. Well adult exam (Z00.00: Encounter for general adult medical examination without abnormal findings) Continue with endocrinology & gastroenterology for chronic condition f/u one year for well exam sooner for acute visit 2. Encounter to establish care (Z76.89: Persons encountering health services in other specified circumstances) 3. Non-smoker (Z78.9: Other specified health status) Encouraged to continue as a non-smoker 4. BMI 34.0-34.9,adult (Z68.34: Body mass index [BMI] 34.0-34.9, adult) The standard range for ages 18 and older is >=18.5 and < 25 kg/m2. Your BMI today was above this range, this falls in the overweight to obese category and there are medical benefits to weight loss. We can offer counselling, referral, and/or medical support in addressing this problem. Your BMI and weight management will be followed at subsequent visits. Discussed portion control and daily exercise Discussed with patient pharmacological interventions available for weight loss- Patient reports she would like to do this on her own to start Follow-up With When Contact Information GILBERT WATSON CNP, FAM Within [address] [place] [phone] Business (1) Additional Instructions: Well adult Patient Education Health Maintenance, Female Problem List/Past Medical History Ongoing Abnormal US (ultrasound) of abdomen Hypothyroidism Non-smoker Osteopenia Personal history of colonic polyps Primary biliary cholangitis Vitamin D deficiency Historical No qualifying data Procedure/Surgical History Mammography (03/30/2023), Mammography (03/25/2021), Colonoscopy (12/29/2020), Appendectomy, section, Tonsillectomy and adenoidectomy. Medications calcium citrate, 500 mg, Oral, BID fenofibrate 145 mg Tab, 1/2 tab(s), Oral, Every other day, 3 refills levothyroxine, 175 mcg, Oral, As Directed Multivitamins and Minerals, 1 tab, Oral, Daily Ocaliva 5 mg oral tablet, See Instructions ursodiol 500 mg Tab, 500 mg= 1 tab(s), Oral, BID, 11 refills Vitamin D 50,000 intl units (1.25 mg) oral capsule, 96890 International_Unit, Oral, qWeek, 3 refills Allergies sulfa drugs (allergy) Social History Alcohol - Denies Alcohol Use, 09/11/2019 Substance Abuse - Denies Substance Abuse, 09/11/2019 Tobacco - Denies Tobacco Use, 09/11/2019 Never (less than 100 in lifetime) Tobacco Use:. Never Smokeless Tobacco Use:. Cigarettes, 04/26/2024 Family History Crohn's disease: Aunt. Pancreatic cancer: Grandparent. Primary biliary cholangitis: Mother. Immunizations Vaccine Date Status Comments influenza virus vaccine, inactivated - Not Given Patient Refuses measles/mumps/rubella virus vaccine 11/25/2022 Recorde (more content not included)... Normal [facility] Comment on above: Result Comment: Elec tronically Signed By: GILBERT WATSON CNP\.judith\Date and Time Signed: 04/26/24 12:43 EDT BI MAMMO BILATERAL SCREENING TOMOSYNTHESISon 04-24-2024 BI MAMMO BILATERAL SCREENING TOMOSYNTHESIS Interpreted By: Jasvir Bass and Stephens Katherine STUDY: BI MAMMO BILATERAL SCREENING TOMOSYNTHESIS; 04/24/2024 2:02 pm ACCESSION NUMBER(S): [id number] ORDERING CLINICIAN: KELY CRAIN INDICATION: Screening. BRCA 2 positive. History right breast biopsy. COMPARISON: Mammograms 03/22/2023, 03/29/2022, 03/25/2021 Breast MRI 11/24/2023 FINDINGS: 2D and tomosynthesis images were reviewed at 1 mm slice thickness. Density: There are areas of scattered fibroglandular tissue. Post biopsy changes and a biopsy clip are seen in the inferolateral right breast at anterior to middle depth. No suspicious masses or calcifications are identified. IMPRESSION: No mammographic evidence of malignancy. BI-RADS CATEGORY: BI-RADS Category: 2 Benign. Recommendation: Annual Screening. Recommended Date: 1 Year. Laterality: Bilateral. Based on the Tyrer-Cuzick model for breast cancer risk assessment, this patient is at an elevated risk of developing breast cancer and may benefit from additional screening with breast MRI or ultrasound. Please note that this estimate is based on responses provided on the patient questionnaire. For more information regarding high risk consultation, please call [phone]. For any future breast imaging appointments, please call [phone] ([phone]). I personally reviewed the images/study and I agree with Cassandra Escamilla DO's (radiology specialist) findings as stated. This study was interpreted at [facility], [place], [place]. MACRO: None Signed by: Jasvir Bass 04/24/2024 3:39 PM Dictation workstation: [id number] Normal [facility] Provider Letteron 03-15-2024 Provider Letter March 15, 2024 NITHYA DE DIOS [address] [place] [address] : 1965 Dear Nithya, We have been trying to reach you with no success. It is important that you return our call regarding your previous appointment on April [address] Stauffer. Please call the office to reschedule this appointment upon receiving this letter. At this time your appointment has been cancelled. Also, at the time of your call, please provide us with your current information. Thank you for your prompt attention to this matter. Sincerely, [facility] [phone] Normal [facility] Calcitriolon 02-24-2024 1,25-dihydroxyvitamin D3 [Mass/Vol] 73.7 pg/mL Normal 19.9-79.3 [facility] Comment on above: Result Comment: INTE RPRETIVE INFORMATION: Vitamin D, 1,25-Dihydroxy This test is primarily indicated during patient evaluation for hypercalcemia and renal failure. A normal result does not rule out Vitamin D deficiency. The recommended test for diagnosing Vitamin D deficiency is Vitamin D 25-hydroxy. Performed By: [facility] [address] [place] [address] Residential Support Specialist: Ronal Sanchez MD, PhD CLIA Number: [id number] Performed By: #### 1 649-3 ####[facility] ([facility]) ([id number])[address] [place] [address] Comprehensive metabolic 2000 panelon 02-24-2024 Albumin BCP dye [Mass/Vol] 4.4 g/dL Normal 3.4-5.0 [facility] Comment on above: Performed By: #### 2 4323-8 ####CONSTANZA Moore ([id number])[facility] ([facility])[id number] [place], [place] [id number] ALP [Catalytic activity/Vol] 158 U/L High 33-110 [facility] Comment on above: Performed By: #### 2 4323-8 ####CONSTANZA Moore ([id number])[facility] ([facility])[address] [place] [address] ALT With P-5'-P [Catalytic activity/Vol] 45 U/L Normal 7-45 [facility] Comment on above: Result Comment: Suzanne ents treated with Sulfasalazine may generate falsely decreased results for ALT. Performed By: #### 2 4323-8 ####CONSTANZA Moore ([id number])[facility] ([facility])[address] [place] [address] Anion gap [Moles/Vol] 15 mmol/L Normal 10-20 [facility] Comment on above: Performed By: #### 2 4323-8 ####CONSTANZA EDWARDS L ([id number])[facility] ([facility])[address] [place] [address] AST With P-5'-P [Catalytic activity/Vol] 29 U/L Normal 9-39 [facility] Comment on above: Performed By: #### 2 4323-8 ####CONSTANZA Moore ([id number])[facility] ([facility])[address] [place] [address] Bilirubin [Mass/Vol] 0.4 mg/dL Normal 0.0-1.2 [facility] Comment on above: Performed By: #### 2 4323-8 ####CONSTANZA Moore ([id number])[facility] ([facility])[address] [place] [address] Calcium [Mass/Vol] 9.2 mg/dL Normal 8.6-10.6 [facility] Comment on above: Performed By: #### 2 4323-8 ####CONSTANZA EDWARDS L ([id number])[facility] ([facility])[address] [place] [address] Chloride [Moles/Vol] 101 mmol/L Normal 98-107 [facility] Comment on above: Performed By: #### 2 4323-8 ####CONSTANZA Moore ([id number])[facility] ([facility])[address] [place] [address] CO2 [Moles/Vol] 26 mmol/L Normal 21-32 [facility] Comment on above: Performed By: #### 2 4323-8 ####CONSTANZA EDWARDS L ([id number])[facility] ([facility])[address] [place] [address] Creatinine [Mass/Vol] 0.88 mg/dL Normal 0.50-1.05 [facility] Comment on above: Performed By: #### 2 4323-8 ####CONSTANZA EDWARDS L ([id number])[facility] ([facility])[address] [place] [address] Glomerular filtration rate/1.73 sq M.predicted 77 mL/min/1.73m*2 Normal >60 [facility] Comment on above: Result Comment: Calc ulations of estimated GFR are performed using the 2020 CKD-EPI Study Refit equation without the race variable for the IDMS-Traceable creatinine methods. https://jasn.asnjournals.org/content//ASN.80404 30857 Performed By: #### 2 4323-8 ####CONSTANZA Moore ([id number])[facility] ([facility])[address] [place] [address] Glucose [Mass/Vol] 101 mg/dL High 74-99 [facility] Comment on above: Performed By: #### 2 4323-8 ####CONSTANZA EDWARDS L ([id number])[facility] ([facility])[address] [place] [address] Potassium [Moles/Vol] 4.6 mmol/L Normal 3.5-5.3 [facility] Comment on above: Performed By: #### 2 4323-8 ####CONSTANZA EDWARDS L ([id number])[facility] ([facility])[address] [place] [address] Protein [Mass/Vol] 7.7 g/dL Normal 6.4-8.2 [facility] Comment on above: Performed By: #### 2 4323-8 ####CONSTANZA Moore ([id number])[facility] ([facility])[address] [place] [address] Sodium [Moles/Vol] 137 mmol/L Normal 136-145 [facility] Comment on above: Performed By: #### 2 4323-8 ####CONSTANZA Moore ([id number])[facility] ([facility])[address] [place] [address] Urea nitrogen [Mass/Vol] 18 mg/dL Normal 6-23 [facility] Comment on above: Performed By: #### 2 4323-8 ####CONSTANZA Moore ([id number])[facility] ([facility])[id number] [place] [address] Parathyrin.intacton 02-24-20 24 Parathyrin.intact [Mass/Vol] 42.2 pg/mL Normal 18.5-88.0 [facility] Comment on above: Performed By: #### 2 731-8 ####CONSTANZA Moore ([id number])[facility] ([facility])[address] [place] [address] Phosphateon 02-24-2024 Phosphate [Mass/Vol] 3.6 mg/dL Normal 2.5-4.9 [facility] Comment on above: Result Comment: The performance characteristics of phosphorus testing in heparinized plasma have been validated by the individual laboratory site where testing is performed. Testing on heparinized plasma is not approved by the FDA; however, such approval is not necessary. Performed By: #### 2 777-1 ####CONSTANZA Moore ([id number])[facility] ([facility])[address] [place] [address] Non-claims customer service representative cytology studyon Non-gynecological cytology method study Pathology report.total SEE COMMENT Non-gynecologic Cytology Case: [id number] Authorizing Provider: Minoo Hernandez MD Collected: 01/19/2024 0840 Ordering Location: [facility] Received: 01/19/2024 1426 Josse Gold [place] Pathologist: Sherry Watson MD Specimen: PELVIC WASHING, Pelvic Washings Path report.final diagnosis SEE COMMENT A. PELVIC WASHING - Pelvic Washings No malignant cells identified Laboratory comment SEE COMMENT Slide(s) initially screened by ANTOLIN Martínez at [facility] [address] [facility] [phone] By the signature on this report, the [...] ThinPrep Normal [facility] Comment on above: Order Comment: Pre-o p diagnosis:BRCA gene mutation positive [Z15.01, Z15.09] Physician Referralon 024 Physician Referral [id number] Normal [facility] Surgical pathology studyon 0 01-19-2024 Surgical pathology study Pathology report.total SEE COMMENT Surgical Pathology Case: [id number] Authorizing Provider: Minoo Hernandez MD Collected: 01/19/2024 0930 Ordering Location: [facility] Received: 01/19/2024 1053 Guadalupita Asif OR Pathologist: William Hale MD Specimen: FALLOPIAN [...] tissue) Normal [facility] Comment on above: Order Comment: Pre-o p diagnosis:BRCA gene mutation positive [Z15.01, Z15.09] Ambulatory Visit Summaryon 0 01-18-2024 Ambulatory Visit Summary VANITHYA GOMEZ Teresa :1965 Visit Date:01/18/2024 Ambulatory Visit Instructions Your [...] Follow-Up Appointments Tuesday 10:15 AM EDT With: Vitaly Stauffer MD Where: [facility] Normal [facility] Ambulatory Visit Summary NITHYA DE DIOS :1965 [...] Someone Will Contact You Regarding These Appointments [facility] [place] Referral, Gastroenterology, 01/18/24 11:28:00 EDT, Primary biliary cholangitis Medications What How Much When Why Instructions New fenofibrate (fenofibrate 145 mg Tab) 1/2 tab(s) By Mouth Every other day Primary biliary cholangitis Duration: 90 Days Refills: 3 Pickup at [facility] [id number] New ursodiol (ursodiol 500 mg Tab) 1 Tablets By Mouth 2 times a day Duration: 30 Days Refills: 11 with food Pickup at [facility] [id number] Unchanged alendronate (alendronate 10 mg Tab) 1 [...] physician if questions or concerns Pharmacy Information [facility] [id number]: [address] [place], [place] [id number] [phone] Allergies sulfa drugs (allergy) Problems Ongoing - [...] for choosing us for your care. Normal [facility] Gastroenterology Office/Clin ic Noteon 01-18-2024 Gastroenterology Office/Clinic [...] first with Dr. Meza given his the sales force developer taking care of her She also tested [...] and st (more content not included)... Normal [facility] Comment on above: Result Comment: Elec tronically Signed By: Eh URIAS, Vitaly Hernandes\.br\Date and Time Signed: 01/18/24 11:48 EDT\.br\Electronically Co-Signed By: Verenice Hair MA\.br\Date and Time Co-Signed: 01/18/24 11:38 EDT Blood type and Indirect anti body screen panel (Bld)on 01-16-2024 ABO group Nom (Bld) O Normal [facility] Comment on above: Performed By: #### 3 4532-2 ####CONSTANZA Moore ([id number])[facility] ([facility])[address] [place] [address] Blood group antibody screen Ql Negative Normal [facility] Comment on above: Performed By: #### 3 4532-2 ####CONSTANZA Moore ([id number])[facility] ([facility])[address] [place] [address] D Ag Ql (Bld) Positive Normal [facility] Comment on above: Performed By: #### 3 4532-2 ####CONSTANZA Moore ([id number])[facility] ([facility])[address] [place] [address] CBC W Auto Differential pane l (Bld)on 01-16-2024 Basophils (Bld) [#/Vol] 0.04 x10*3/uL Normal 0.00-0.10 [facility] Comment on above: Performed By: #### 5 7021-8 #### VERONICA CHERRY ([id number]) [facility] ([facility]) [address] [place] [address] 64741 Basophils/100 WBC (Bld) 0.7 % Normal 0.0-2.0 [facility] Comment on above: Performed By: #### 5 7021-8 #### VERONICA CHERRY ([id number]) [facility] ([facility]) [address] [place] [address] 71005 Eosinophils (Bld) [#/Vol] 0.18 x10*3/uL Normal 0.00-0.70 [facility] Comment on above: Performed By: #### 5 7021-8 #### VERONICA CHERRY ([id number]) [facility] ([facility]) [address] [place] [address] 30015 Eosinophils/100 WBC (Bld) 3.1 % Normal 0.0-6.0 [facility] Comment on above: Performed By: #### 5 7021-8 #### VERONICA CHERRY ([id number]) [facility] ([facility]) [address] [place] [address] 27164 Erythrocyte distribution width (RBC) [Ratio] 13.0 % Normal 11.5-14.5 [facility] Comment on above: Performed By: #### 5 7021-8 #### VERONICA CHERRY ([id number]) [facility] ([facility]) [address] [place] [address] 51020 Hematocrit (Bld) [Volume fraction] 36.5 % Normal 36.0-46.0 [facility] Comment on above: Performed By: #### 5 7021-8 #### VERONICA CHERRY ([id number]) [facility] ([facility]) [address] [place] [address] 60506 Hemoglobin (Bld) [Mass/Vol] 12.0 g/dL Normal 12.0-16.0 [facility] Comment on above: Performed By: #### 5 7021-8 #### VERONICA CHERRY ([id number]) [facility] ([facility]) [address] [place] [address] 92911 Immature granulocytes (Bld) [#/Vol] 0.02 x10*3/uL Normal 0.00-0.70 [facility] Comment on above: Performed By: #### 5 7021-8 #### VERONICA CHERRY ([id number]) [facility] ([facility]) [address] [place] [address] 41054 Immature granulocytes/100 WBC (Bld) 0.3 % Normal 0.0-0.9 [facility] Comment on above: Result Comment: Rea ture Granulocyte Count (IG) includes promyelocytes, myelocytes and metamyelocytes but does not include bands. Percent differential counts (%) should be interpreted in the context of the absolute cell counts (cells/UL). Performed By: #### 5 7021-8 #### VERONICA CHERRY ([id number]) [facility] ([facility]) [address] [place] [address] 84751 Lymphocytes (Bld) [#/Vol] 2.27 x10*3/uL Normal 1.20-4.80 [facility] Comment on above: Performed By: #### 5 7021-8 #### VERONICA CHERRY ([id number]) [facility] ([facility]) [address] [place] [address] 86927 Lymphocytes/100 WBC (Bld) 38.5 % Normal 13.0-44.0 [facility] Comment on above: Performed By: #### 5 7021-8 #### VERONICA CHERRY ([id number]) [facility] ([facility]) [address] [place] [address] 78128 MCH (RBC) [Entitic mass] 29.6 pg Normal 26.0-34.0 [facility] Comment on above: Performed By: #### 5 7021-8 #### VERONICA CHERRY ([id number]) [facility] ([facility]) [address] [place] [address] 61702 MCHC (RBC) [Mass/Vol] 32.9 g/dL Normal 32.0-36.0 [facility] Comment on above: Performed By: #### 5 7021-8 #### VERONICA CHERRY ([id number]) [facility] ([facility]) [address] [place] [address] 47903 MCV (RBC) [Entitic vol] 90 fL Normal 80-100 [facility] Comment on above: Performed By: #### 5 7021-8 #### VERONICA CHERRY ([id number]) [facility] ([facility]) [address] [place] [address] 43151 Monocytes (Bld) [#/Vol] 0.57 x10*3/uL Normal 0.10-1.00 [facility] Comment on above: Performed By: #### 5 7021-8 #### VERONICA CHERRY ([id number]) [facility] ([facility]) [address] [place] [address] 76100 Monocytes/100 WBC (Bld) 9.7 % Normal 2.0-10.0 [facility] Comment on above: Performed By: #### 5 7021-8 #### VERONICA CHERRY ([id number]) [facility] ([facility]) [address] [place] [address] 85356 Neutrophils (Bld) [#/Vol] 2.82 x10*3/uL Normal 1.20-7.70 [facility] Comment on above: Result Comment: Perc ent differential counts (%) should be interpreted in the context of the absolute cell counts (cells/uL). Performed By: #### 5 7021-8 #### VERONICA CHERRY ([id number]) [facility] ([facility]) [address] [place] [address] 69780 Neutrophils/100 WBC (Bld) 47.7 % Normal 40.0-80.0 [facility] Comment on above: Performed By: #### 5 7021-8 #### VERONICA CHERRY ([id number]) [facility] ([facility]) [address] [place] [address] 75442 Nucleated RBC/100 WBC (Bld) [Ratio] 0.0 /100 WBCs Normal 0.0-0.0 [facility] Comment on above: Performed By: #### 5 7021-8 #### VERONICA CHERRY ([id number]) [facility] ([facility]) [address] [place] [address] 45050 Platelets (Bld) [#/Vol] 305 x10*3/uL Normal 150-450 [facility] Comment on above: Performed By: #### 5 7021-8 #### VERONICA CHERRY ([id number]) [facility] ([facility]) [address] [place] [address] 66904 RBC (Bld) [#/Vol] 4.06 x10*6/uL Normal 4.00-5.20 [facility] Comment on above: Performed By: #### 5 7021-8 #### VERONICA CHERRY ([id number]) [facility] ([facility]) [address] [place] [address] 59121 WBC (Bld) [#/Vol] 5.9 x10*3/uL Normal 4.4-11.3 [facility] Comment on above: Performed By: #### 5 7021-8 #### VERONICA AGUSTINA LEIVA ([id number]) [facility] ([facility]) [address] [place] [address] Calcidiolon 01-16-2024 25-hydroxyvitamin D3 [Mass/Vol] 58 ng/mL Normal 30-100 [facility] Comment on above: Order Comment: Defic iency: < 20 ng/mlInsufficiency: 20-29 ng/mlSufficiency: 30-100 ng/mlThis assay accurately quantifies the sum of Vitamin D3, 25-Hydroxy and Vitamin D2,25-Hydroxy. Performed By: #### 1 989-3 ####VERONICA [facility] ([id number])[facility] ([facility])[address] [place] [address] 88904 Cancer Ag 19-9on 01-16-2024 Cancer Ag 19-9 Qn 29.07 [arb'U]/mL Normal <35.00 U [facility] Comment on above: Order Comment: CA 19 -9 testing is performed by chemiluminescent immunoassay using the Medio. Values obtained with different analytic methods cannot [...] Performed By: #### 2 4108-3 ####CONSTANZA Moore ([id number])[facility] ([facility])[address] [place] [address] 17251 Coagulation surface inducedo n 01-16-2024 aPTT Coag (PPP) [Time] 35 s Normal 27-38 Un [facility] Comment on above: Order Comment: The A PTT is no longer used for monitoring Unfractionated Heparin Therapy. For monitoring Heparin Therapy, use the Heparin Assay. Performed By: #### 1 4979-9 ####VERONICA CHERRY ([id number])[facility] (C)[address] [place] [address] 93172 Coagulation tissue factor in ducedon 01-16-2024 PT Coag (PPP) [Time] 10.8 s Normal 9.8-12.8 [facility] Comment on above: Performed By: #### 5 902-2 ####VERONICA CHERRY ([id number])[facility] ([facility])[address] [place] [address] 97129 Comprehensive metabolic 2000 panelon 01-16-2024 Albumin BCP dye [Mass/Vol] 4.3 g/dL Normal 3.4-5.0 [facility] Comment on above: Performed By: #### 2 4323-8 ####VERONICA CHERRY ([id number])[facility] (EM)[address] [place] [address] 77817 ALP [Catalytic activity/Vol] 132 U/L High 33-110 [facility] Comment on above: Performed By: #### 2 4323-8 ####VERONICA CHERRY ([id number])[facility] ([facility])[address] [place] [address] 86652 ALT With P-5'-P [Catalytic activity/Vol] 36 U/L Normal 7-45 [facility] Comment on above: Result Comment: Suzanne ents treated with Sulfasalazine may generate falsely decreased results for ALT. Performed By: #### 2 4323-8 ####VERONICA CHERRY ([id number])[facility] (EM)[address] [place] [address] 58766 Anion gap [Moles/Vol] 11 mmol/L Normal 10-20 [facility] Comment on above: Performed By: #### 2 4323-8 ####VERONICA CHERRY ([id number])[facility] ([facility])[address] [place] [address] 71283 AST With P-5'-P [Catalytic activity/Vol] 25 U/L Normal 9-39 [facility] Comment on above: Performed By: #### 2 4323-8 ####VERONICA CHERRY ([id number])[facility] ([facility])[address] [place] [address] Bilirubin [Mass/Vol] 0.5 mg/dL Normal 0.0-1.2 [facility] Comment on above: Performed By: #### 2 4323-8 ####VERONICA CHERRY ([id number])[facility] (EM)[address] [place] [address] Calcium [Mass/Vol] 9.3 mg/dL Normal 8.6-10.3 [facility] Comment on above: Performed By: #### 2 4323-8 ####VERONICA CHERRY ([id number])[facility] ([facility])[address] [place] [address] Chloride [Moles/Vol] 102 mmol/L Normal 98-107 [facility] Comment on above: Performed By: #### 2 4323-8 ####VERONICA CHERRY ([id number])[facility] (EM)[address] [place] [address] CO2 [Moles/Vol] 29 mmol/L Normal 21-32 [facility] Comment on above: Performed By: #### 2 4323-8 ####VERONICA CHERRY ([id number])[facility] ([facility])[address] [place] [address] Creatinine [Mass/Vol] 0.75 mg/dL Normal 0.50-1.05 [facility] Comment on above: Performed By: #### 2 4323-8 ####VERONICA CHERRY ([id number])[facility] (EM)[address] [place] [address] GFR/1.73 sq M.predicted MDRD (S/P/Bld) [Vol rate/Area] mL/min/{1.73_m2} Normal >60 [facility] Comment on above: Result Comment: Calc ulations of estimated GFR are performed using the 2020 CKD-EPI Study Refit equation without the race variable for the IDMS-Traceable creatinine methods. https://jasn.asnjournals.org/content//ASN.54794 31928 Performed By: #### 2 4323-8 ####VERONICA CHERRY ([id number])[facility] ([facility])[address] [place] [address] Glucose [Mass/Vol] 95 mg/dL Normal 74-99 [facility] Comment on above: Performed By: #### 2 4323-8 ####VERONICA CHERRY ([id number])[facility] (C)[address] [place] [address] Potassium [Moles/Vol] 4.2 mmol/L Normal 3.5-5.3 [facility] Comment on above: Performed By: #### 2 4323-8 ####MIRACLEIBVANIA BERRIOS RIO CALI ([id number])[facility] (C)[address] [place] [address] Protein [Mass/Vol] 7.4 g/dL Normal 6.4-8.2 [facility] Comment on above: Performed By: #### 2 4323-8 ####VERONICA CHERRY ([id number])[facility] ([facility])[address] [place] [address] Sodium [Moles/Vol] 138 mmol/L Normal 136-145 [facility] Comment on above: Performed By: #### 2 4323-8 ####MIRACLEIBVANIA CHERRY ([id number])[facility] ([facility])[address] [place] [address] Urea nitrogen [Mass/Vol] 17 mg/dL Normal 6-23 [facility] Comment on above: Performed By: #### 2 4323-8 ####MIRACLEIBVANIA CHERRY ([id number])[facility] ([facility])[address] [place] [address] PT Coag (PPP) [Time]on 01-15 INR Coag (PPP) [Relative time] 1.0 Normal 0.9-1.1 [facility] Comment on above: Performed By: #### 5 902-2 ####VERONICA BERRIOS RIO CALI ([id number])[facility] ([facility])[address] [place] [address] BI BREAST BIOPSY CLIP IMAGIN Tru 12-21-2023 [...] PM -------- ORIGINAL REPORT -------- Dictation workstation: [id number] Interpreted By: Jasvir Bass, and Yessi Sweeney STUDY: BI MR BREAST VACUUM ASSISTED BIOPSY; BI BREAST BIOPSY CLIP IMAGING; 12/21/2023 10:21 am; 12/21/2023 10:31 am ACCESSION NUMBER(S): [id number]; [id number] ORDERING CLINICIAN: KELY CRAIN INDICATION: The patient's [...] Patel Dickson, a radiology nurse and an biomedical engineering technologist were present. PROCEDURE: The patient was placed on the MRI scanner within the breast coil with mild compression on the right breast. T1 weighted fat saturation axial images were obtained before and after administration of 17 mL intravenous Dotarem. The enhancing area of concern was identified. The AdScale software program was used to localize the [...] Jasvir Bass 12/21/2023 11:09 AM Dictation workstation: [id number] [facility] BI MR BREAST VACUUM ASSISTED BIOPSYon 12-21-2023 [...] PM -------- ORIGINAL REPORT -------- Dictation workstation: [id number] Interpreted By: Jasvir Bass, and Yessi Sweeney STUDY: BI MR BREAST VACUUM ASSISTED BIOPSY; BI BREAST BIOPSY CLIP IMAGING; 12/21/2023 10:21 am; 12/21/2023 10:31 am ACCESSION NUMBER(S): [id number]; [id number] ORDERING CLINICIAN: KELY CRAIN INDICATION: The patient's [...] Patel Dickson, a radiology nurse and an biomedical engineering technologist were present. PROCEDURE: The patient was placed on the MRI scanner within the breast coil with mild compression on the right breast. T1 weighted fat saturation axial images were obtained before and after administration of 17 mL intravenous Dotarem. The enhancing area of concern was identified. The AdScale software program was used to localize the [...] Jasvir Bass 12/21/2023 11:09 AM Dictation workstation: [id number] [facility] MG Breast - unilateral Singl e view for clip placementon 12-21-2023 Radiology Study observation (narrative) [facility] Work Phone: MG Breast Viewson 12-21-2023 Radiology Study observation (narrative) [facility] Work Phone: No Panel Informationon 12-20 Status post MRI guid ed vacuum-assisted core needle biopsy of right breast mass followed by placement of tissue marker. Pathology is pending. POST PROCEDURE MAMMOGRAM FOR MARKER PLACEMENT. I personally reviewed the images/study and I agree with Dr. Patel Dickson and the findings as stated. MACRO: None Signed by: Jasvir Bass 12/21/2023 11:09 AM Dictation workstation: [id number]AL Interpreted By: Jasvir Bass, Juan Luis Sweeney STUDY: BI MR BREAST VACUUM ASSISTED BIOPSY; BI BREAST BIOPSY CLIP IMAGING; 12/21/2023 10:21 am; 12/21/2023 10:31 am ACCESSION NUMBER(S): [id number]; [id number] ORDERING CLINICIAN: KELY CRAIN INDICATION: The patient's [...] Patel Dickson, a radiology nurse and an biomedical engineering technologist were present. PROCEDURE: The patient was placed on the MRI scanner within the breast coil with mild compression on the right breast. T1 weighted fat saturation axial images were obtained before and after administration of 17 mL intravenous Dotarem. The enhancing area of concern was identified. The AdScale software program was used to localize the [...] - 12/21/2023 Interpreted By: Jasvir Bass and Yessi Sweeney STUDY: BI MR BREAST VACUUM ASSISTED BIOPSY; BI BREAST BIOPSY CLIP IMAGING; 12/21/2023 10:21 am; 12/21/2023 10:31 am ACCESSION NUMBER(S): [id number]; [id number] ORDERING CLINICIAN: KELY CRAIN INDICATION: The patient's [...] Patel Dickson, a radiology nurse and an biomedical engineering technologist were present. PROCEDURE: The patient was placed on the MRI scanner within the breast coil with mild compression on the right breast. T1 weighted fat saturation axial images were obtained before and after administration of 17 mL intravenous Dotarem. The enhancing area of concern was identified. The AdScale software program was used to localize the [...] Jasvir Bass 12/21/2023 11:09 AM Dictation workstation: [id number] [facility] Work Phone: No Panel InformationOrdered By: Jasvir Bass on 12-21-2023 [facility] Work Phone: Surgical pathology studyon 0 12-21-2023 Surgical pathology study Pathology report.total SEE COMMENT Surgical Pathology Case: [id number] Authorizing Provider: Kely Crain, Collected: 12/21/2023 0945 DISTANCE EDUCATION FACULTY LIAISON-HEALTH ADMINISTRATOR Ordering Location: [facility] Received: 12/21/2023 1036 Pathologist: Paul Rothman MD [...] Pathology at [facility]. The FDA does not require this test to go through premarket FDA review. This test is used for clinical purposes. It should not be regarded as investigational or for research. This laboratory is certified under the Clinical Laboratory Improvement Amendments (CLIA) as qualified to perform high complexity clinical laboratory testing. The assays were performed with appropriate positive and negative controls which stained appropriately. [facility] Comment on above: Order Comment: Right breast mass MRI core bipsy Blood type and Indirect anti body screen panel (Bld)on 12-19-2023 ABO group Nom (Bld) O Normal [facility] Comment on above: Performed By: #### 3 4532-2 #### CONSTANZA Moore ([id number]) [facility] ([facility]) [address] [place] [address] Blood group antibody screen Ql Negative [facility] Comment on above: Performed By: #### 3 4532-2 #### CONSTANZA Moore ([id number]) [facility] ([facility]) [address] [place] [address] D Ag Ql (Bld) Positive Normal [facility] Comment on above: Result Comment: 2nd ABO test required. Order and Collect VERAB Performed By: #### 3 4532-2 #### CONSTANZA Moore ([id number]) [facility] ([facility]) [address] [place] [address] 95192 CBC panel Auto (Bld)on 12-18 Erythrocyte distribution width (RBC) [Ratio] 12.9 % Normal 11.5-14.5 [facility] Comment on above: Performed By: #### 5 8410-2 #### CONSTANZA Moore ([id number]) [facility] ([facility]) [address] [place] [address] 05270 Hematocrit (Bld) [Volume fraction] 41.7 % Normal 36.0-46.0 [facility] Comment on above: Performed By: #### 5 8410-2 #### CONSTANZA Moore ([id number]) [facility] ([facility]) [address] [place] [address] 73865 Hemoglobin (Bld) [Mass/Vol] 13.4 g/dL Normal 12.0-16.0 [facility] Comment on above: Performed By: #### 5 8410-2 #### CONSTANZA Moore (48735) [facility] ([facility]) [address] [place] [address] 25382 MCH (RBC) [Entitic mass] 28.9 pg Normal 26.0-34.0 [facility] Comment on above: Performed By: #### 5 8410-2 #### CONSTANZA Moore ([id number]) [facility] ([facility]) [address] [place] [address] 89814 MCHC (RBC) [Mass/Vol] 32.1 g/dL Normal 32.0-36.0 [facility] Comment on above: Performed By: #### 5 8410-2 #### CONSTANZA Moore ([id number]) [facility] ([facility]) [address] [place] [address] 38347 MCV (RBC) [Entitic vol] 90 fL Normal 80-100 [facility] Comment on above: Performed By: #### 5 8410-2 #### CONSTANZA Moore ([id number]) [facility] ([facility]) [address] [place] [address] 72347 Nucleated RBC/100 WBC (Bld) [Ratio] 0.0 /100 WBCs Normal 0.0-0.0 [facility] Comment on above: Performed By: #### 5 8410-2 #### CONSTANZA Moore ([id number]) [facility] ([facility]) [address] [place] [address] 81305 Platelets (Bld) [#/Vol] 331 x10*3/uL Normal 150-450 [facility] Comment on above: Performed By: #### 5 8410-2 #### CONSTANZA Moore ([id number]) [facility] ([facility]) [address] [place] [address] 78648 RBC (Bld) [#/Vol] 4.64 x10*6/uL Normal 4.00-5.20 [facility] Comment on above: Performed By: #### 5 8410-2 #### CONSTANZA Moore ([id number]) [facility] ([facility]) [address] [place] [address] 50821 WBC (Bld) [#/Vol] 8.1 x10*3/uL Normal 4.4-11.3 [facility] Comment on above: Performed By: #### 5 8410-2 #### CONSTANZA Moore ([id number]) [facility] ([facility]) [address] [place] [address] 15208 Comprehensive metabolic 2000 panelon 12-19-2023 Albumin BCP dye [Mass/Vol] 4.5 g/dL Normal 3.4-5.0 [facility] Comment on above: Performed By: #### 2 4323-8 #### CONSTANZA Moore ([id number]) [facility] ([facility]) [address] [place] [address] 50889 ALP [Catalytic activity/Vol] 150 U/L High 33-110 [facility] Comment on above: Performed By: #### 2 4323-8 #### CONSTANZA Moore ([id number]) [facility] ([facility]) [address] [place] [address] ALT With P-5'-P [Catalytic activity/Vol] 50 U/L High 7-45 [facility] Comment on above: Result Comment: Suzanne ents treated with Sulfasalazine may generate falsely decreased results for ALT. Performed By: #### 2 4323-8 #### CONSTANZA Moore ([id number]) [facility] ([facility]) [address] [place] [address] Anion gap [Moles/Vol] 17 mmol/L Normal 10-20 [facility] Comment on above: Performed By: #### 2 4323-8 #### CONSTANZA Moore ([id number]) [facility] ([facility]) [address] [place] [address] 14435 AST With P-5'-P [Catalytic activity/Vol] 31 U/L Normal 9-39 [facility] Comment on above: Performed By: #### 2 4323-8 #### CONSTANZA Moore ([id number]) [facility] ([facility]) [address] [place] [address] Bilirubin [Mass/Vol] 0.5 mg/dL Normal 0.0-1.2 [facility] Comment on above: Performed By: #### 2 4323-8 #### CONSTANZA Moore ([id number]) [facility] ([facility]) [id number] [place] [address] 73372 Calcium [Mass/Vol] 9.9 mg/dL Normal 8.6-10.6 [facility] Comment on above: Performed By: #### 2 4323-8 #### CONSTANZA Moore ([id number]) [facility] ([facility]) [address] [place] [address] 63216 Chloride [Moles/Vol] 100 mmol/L Normal 98-107 [facility] Comment on above: Performed By: #### 2 4323-8 #### CONSTANZA Moore ([id number]) [facility] ([facility]) [address] [place] [address] CO2 [Moles/Vol] 27 mmol/L Normal 21-32 [facility] Comment on above: Performed By: #### 2 4323-8 #### CONSTANZA EDWARDS L ([id number]) [facility] ([facility]) [id number] [place] [address] 57126 Creatinine [Mass/Vol] 1.12 mg/dL High 0.50-1.05 [facility] Comment on above: Performed By: #### 2 4323-8 #### CONSTANZA EDWARDS L ([id number]) [facility] ([facility]) [address] [place] [address] 39976 Glomerular filtration rate/1.73 sq M.predicted 57 mL/min/1.73m*2 Low >60 [facility] Comment on above: Result Comment: Calc ulations of estimated GFR are performed using the 2020 CKD-EPI Study Refit equation without the race variable for the IDMS-Traceable creatinine methods. https://jasn.asnjournals.org/content//ASN.09999 31955 Performed By: #### 2 4323-8 #### CONSTANZA Moore ([id number]) [facility] ([facility]) [address] [place] [address] 34628 Glucose [Mass/Vol] 81 mg/dL Normal 74-99 [facility] Comment on above: Performed By: #### 2 4323-8 #### CONSTANZA EDWARDS L ([id number]) [facility] ([facility]) [id number] [place] [address] 43612 Potassium [Moles/Vol] 3.9 mmol/L Normal 3.5-5.3 [facility] Comment on above: Performed By: #### 2 4323-8 #### CONSTANZA EDWARDS L ([id number]) [facility] ([facility]) [address] [place] [address] Protein [Mass/Vol] 7.7 g/dL Normal 6.4-8.2 [facility] Comment on above: Performed By: #### 2 4323-8 #### CONSTANZA Moore ([id number]) [facility] ([facility]) [address] [place] [address] 97283 Sodium [Moles/Vol] 140 mmol/L Normal 136-145 [facility] Comment on above: Performed By: #### 2 4323-8 #### CONSTANZA EDWARDS L ([id number]) [facility] ([facility]) [address] [place] [address] 33006 Urea nitrogen [Mass/Vol] 14 mg/dL Normal 6-23 [facility] Comment on above: Performed By: #### 2 4323-8 #### CONSTANZA Moore ([id number]) [facility] ([facility]) [address] [place] [address] 49420 PT and aPTT panel Coag (PPP) on 12-19-2023 aPTT Coag (PPP) [Time] 36 s Normal 27-38 [facility] Comment on above: Order Comment: The A PTT is no longer used for monitoring Unfractionated Heparin Therapy. For monitoring Heparin Therapy, use the Heparin Assay. Performed By: #### 3 4529-8 #### CONSTANZA Moore ([id number]) [facility] ([facility]) [address] [place] [address] 92875 INR Coag (PPP) [Relative time] 1.0 Normal 0.9-1.1 [facility] Comment on above: Order Comment: The A PTT is no longer used for monitoring Unfractionated Heparin Therapy. For monitoring Heparin Therapy, use the Heparin Assay. Performed By: #### 3 4529-8 #### CONSTANZA EDWARDS L ([id number]) [facility] ([facility]) [id number] [place] [address] 02451 PT Coag (PPP) [Time] 11.0 s Normal 9.8-12.8 [facility] Comment on above: Order Comment: The A PTT is no longer used for monitoring Unfractionated Heparin Therapy. For monitoring Heparin Therapy, use the Heparin Assay. Performed By: #### 3 4529-8 #### CONSTANZA Moore ([id number]) [facility] ([facility]) [address] [place] [address] TSH WITH REFLEX TO FREE T4 I F ABNORMALon 12-19-2023 TSH Qn 1.50 m[IU]/L Normal 0.44-3.98 [facility] Comment on above: Order Comment: TSH t esting is performed using different testing methodology at [facility] than at other [facility]. Direct result comparisons should only be made within the same method. Performed By: #### T HYDS #### CONSTANZA Moore ([id number]) [facility] ([facility]) [address] [place], [place] [id number] BI US BREAST LIMITED RIGHTon 12-06-2023 BI US BREAST LIMITED RIGHT Interpreted By: Lia Bunch and Avery Ross STUDY: BI US BREAST LIMITED RIGHT; 12/06/2023 1:04 pm ACCESSION NUMBER(S): [id number] ORDERING CLINICIAN: KELY CRAIN INDICATION: MRI directed ultrasound of an enhancing right breast mass. BRCA 2 gene mutation. Family history of breast cancer. COMPARISON: Correlation with breast MRI 11/24/2023 and mammogram 03/30/2023. FINDINGS: A targeted ultrasound of the entire lower outer right breast was performed by a registered sign painter helper and Dr. Garett Quevedo using elastography. An [...] the time of exam and Kely Crain HEALTH ADMINISTRATOR. A message was sent to the referring practitioner at the time of this dictation regarding these critical findings. A pre-procedure form was filled out. Method of Detection: Category Smri - Screening MRI BI-RADS CATEGORY: BI-RADS Category: 4 Suspicious. Recommendation: Surgical Consultation and Biopsy. Recommended Date: Immediate. Laterality: Right. For any future breast imaging appointments, please call [phone]). I personally reviewed the images/study and I agree with the findings as stated by fellow physician, Dr. Garett Quevedo. MACRO: Dr. Garett Quevedo discussed the significance and urgency of this critical finding in person with KELY CRAIN on 12/06/2023 at 12:55 pm. (-RCF-) Findings: See findings. Signed by: Lia Bunch 12/06/2023 2:25 PM Dictation workstation: [id number] Abnormal [facility] US Breast - right limitedOrd ered By: Lia Bunch on 12-06-2023 Interpretation and review of laboratory results Abnormal [facility] Work Phone: [facility] Work Phone: US Breast - right limitedon 12-06-2023 Possible sonographic correlate of the enhancing right breast mass previously noted on breast MRI 11/24/2023. Due to its subtle sonographic appearance, further evaluation with surgical consultation and MRI guided biopsy is recommended. Dr. Garett Quevedo explained the findings and recommendations to the patient at the time of exam and Kely Crain HEALTH ADMINISTRATOR. A message was sent to the referring practitioner at the time of this dictation regarding these critical findings. A pre-procedure form was filled out. Method of Detection: Category Smri - Screening MRI BI-RADS CATEGORY: BI-RADS Category: 4 Suspicious. Recommendation: Surgical Consultation and Biopsy. Recommended Date: Immediate. Laterality: Right. For any future breast imaging appointments, please call [phone]). I personally reviewed the images/study and I agree with the findings as stated by fellow physician, Dr. Garett Quevedo. MACRO: Dr. Garett Quevedo discussed the significance and urgency of this critical finding in person with KELY PARAS on 12/06/2023 at 12:55 pm. (-RCF-) Findings: See findings. Signed by: Lia Bunch 12/06/2023 2:25 PM Dictation workstation: [id number] Interpreted By: Lia Bunch and Avery Ross STUDY: BI US BREAST LIMITED RIGHT; 12/06/2023 1:04 pm ACCESSION NUMBER(S): [id number] ORDERING CLINICIAN: KELY CRAIN INDICATION: MRI directed ultrasound of an enhancing right breast mass. BRCA 2 gene mutation. Family history of breast cancer. COMPARISON: Correlation with breast MRI 11/24/2023 and mammogram 03/30/2023. FINDINGS: A targeted ultrasound of the entire lower outer right breast was performed by a registered sign painter helper and Dr. Garett Quevedo using elastography. An oval circumscribed hypoechoic mass measuring 0.4 x 0.1 x 0.2 cm is seen at the 8 o'clock position 3 cm from the nipple. It is avascular and soft on elastography. This possibly corresponds with the enhancing breast mass on MRI 11/24/2023. A definite sonographic correlate for the MRI finding is not appreciated. [facility] Lia Bunch MD - 12/06/2023 Interpreted By: Lia Bunch and Avery Ross STUDY: BI US BREAST LIMITED RIGHT; 12/06/2023 1:04 pm ACCESSION NUMBER(S): [id number] ORDERING CLINICIAN: KELY CRAIN INDICATION: MRI directed ultrasound of an enhancing right breast mass. BRCA 2 gene mutation. Family history of breast cancer. COMPARISON: Correlation with breast MRI 11/24/2023 and mammogram 03/30/2023. FINDINGS: A targeted ultrasound of the entire lower outer right breast was performed by a registered sign painter helper and Dr. Garett Quevedo using elastography. An [...] any future breast imaging appointments, please call [phone]). I personally reviewed the images/study and I agree with the findings as stated by fellow physician, Dr. Garett Quevedo. MACRO: Dr. Garett Quevedo discussed the significance and urgency of this critical finding in person with KELY PARAS on 12/06/2023 at 12:55 pm. (-RCF-) Findings: See findings. Signed by: Lia Bunch 12/06/2023 2:25 PM Dictation workstation: [id number] [facility] Work Phone: Radiology Study observation (narrative) [facility] Work Phone: MR Breast - bilateral W cont rast IVOrdered By: Lia Bunch on 11-25-2023 Interpretation and review of laboratory results Abnormal [facility] Work Phone: [facility] Work Phone: MR Breast - bilateral W cont rast Lelia 11-25-2023 Interpreted By: Lia Bunch and Avery Ross STUDY: BI MR BREAST BILATERAL WITH CONTRAST FULL PROTOCOL; 11/24/2023 10:13 am ACCESSION NUMBER(S): [id number] ORDERING CLINICIAN: KELY CRAIN INDICATION: High-risk supplemental [...] independent workstation, 3-D images were formulated using DynaCAD including time enhancement curves, subtraction images and [...] FULL PROTOCOL; 11/24/2023 10:13 am ACCESSION NUMBER(S): [id number] ORDERING CLINICIAN: KELY CRAIN INDICATION: High-risk supplemental [...] independent workstation, 3-D images were formulated using DynaCAD including time enhancement curves, subtraction images and [...] dictation regarding these critical findings using the Pict notification system. A pre-procedure form was filled out. 2. No MRI evidence of malignancy in the left breast. Method of Detection: Category Smri - Screening MRI BI-RADS CATEGORY: BI-RADS Category: 4 Suspicious. Recommendation: Surgical Consultation and Biopsy. Recommended Date: Immediate. Laterality: Right. For any future breast imaging appointments, please call [phone]). MACRO: Critical Finding: Breast Imaging Abnormality. Notification was initiated on 11/25/2023 at 1:43 pm by Garett Quevedo. (-YCF-) Instructions: Surgical Consultation and Imaging Guided Biopsy. Signed by: Lia Bunch 11/25/2023 2:02 PM Dictation workstation: [id number] [facility] Work Phone: BI MR BREAST BILATERAL WITH CONTRAST FULL PROTOCOLon 11-24-2023 BI MR BREAST BILATERAL WITH CONTRAST FULL PROTOCOL Interpreted By: Lia Bunch and Avery Ross STUDY: BI MR BREAST BILATERAL WITH CONTRAST FULL PROTOCOL; 11/24/2023 10:13 am ACCESSION NUMBER(S): [id number] ORDERING CLINICIAN: KELY CRAIN INDICATION: High-risk supplemental [...] independent workstation, 3-D images were formulated using TappIn including time enhancement curves, subtraction images and [...] dictation regarding these critical findings using the Pict notification system. A pre-procedure form was filled out. 2. No MRI evidence of malignancy in the left breast. Method of Detection: Category Smri - Screening MRI BI-RADS CATEGORY: BI-RADS Category: 4 Suspicious. Recommendation: Surgical Consultation and Biopsy. Recommended Date: Immediate. Laterality: Right. For any future breast imaging appointments, please call [phone]). MACRO: Critical Finding: Breast Imaging Abnormality. Notification was initiated on 11/25/2023 at 1:43 pm by Garett Quevedo. (-YCF-) Instructions: Surgical Consultation and Imaging Guided Biopsy. Signed by: Lia Bunch 11/25/2023 2:02 PM Dictation workstation: [id number] Abnormal [facility] MR Breast - bilateral W cont rast Lelia 11-24-2023 Radiology Study observation (narrative) [facility] Work Phone: BI TRANSFER OF OUTSIDE FILMS on 11-21-2023 BI TRANSFER OF OUTSIDE FILMS Outside images for comparison or treatment purposes, not interpreted by Radiologists. Normal [facility] BI TRANSFER OF OUTSIDE FILMS Outside images for comparison or treatment purposes, not interpreted by Radiologists. Normal [facility] Study Interpretation of outs keira studyon 11-21-2023 [...] EDT With: Eh URIAS, Vitaly Hernandes Where: [facility] Normal [facility] Gastroenterology Office/Clin ic Noteon 11-14-2023 Gastroenterology Office/Clinic [...] worsening diarrhea. She is following up with [facility] hepatology also. 2. Vitamin D [...] DUODENUM: Normal Vit D level 10/24/23 @ [facility]: 56.2 CMP 10/26/23 @ [place]: All normal besides BUN (H) 19.0 and [...] first with Dr. Meza given his the sales force developer taking care of her She also tested [...] be repea (more content not included)... Normal [facility] Comment on above: Result Comment: Elec tronically Signed By: Eh URIAS, Vitaly Hernandes\.judith\Date and Time Signed: 11/14/23 12:07 EST Auth for Release of Medical Recordson 11-08-2023 Auth for Release of Medical Records [id number]#1.0 0TIFF Normal [facility] ENDOSCOPIC ULTRASOUND (UPPER )on 10-06-2023 ENDOSCOPIC ULTRASOUND (UPPER) Table formatting from the original result was not included. Normal [facility] Endoscopic Ultrasound (Upper )on 10-06-2023 Table formatting [...] PM Specimens No specimens collected Procedure Location [facility] [address] [facility] [address] [place] [address] [address] Department [place] [address] Procedure Provider Vance Garcia MD [facility] Work Phone: [facility] Work Phone: Radiology Study observation (narrative) [facility] Work Phone: CNPNon 05-05-2023 CNPN Telephone (GASTA5) NITHYA DE DIOS ([id number]) 1965 F Date Time Provider Department 05/05/23 YAS MEZA GASTA5 During your visit today, we recorded the following information about you: Annette Molina RN 05/05/2023 12:16 PM Signed Pt sent the following MCM regarding US and fibroscan results: I didn?t see these results in my chart for the [facility], so I am sending them. [...] Encounter Status:Closed by YAS MEZA on 05/06/23 [facility] NITH[facility] DE DIOS ([id number]) 1965 F Date Time Provider Department 04/07/23 [...] (HCC) [K74.3] Order(s):US ABD RIGHT UPPER QUADRANT [[id number]] Order #: [id number] FUTURE US ELASTOGRAPHY LIVER [[id number]] Order #: [id number] FUTURE Prescriptions as of 2023 - alendronate [...] Status:Closed by YAS MEZA on 04/07/23 Normal [facility] CNPNon 01-04-2023 CNPN Telephone (GASTA5) NITHYA DE DIOS ([id number]) 1965 F Date Time Provider Department 01/04/23 YAS MEZA GASTA5 During your visit today, we recorded the following information about you: Constanza Corona RN 01/04/2023 3:19 PM Signed Received the following [employer] message: Dr. Paradise Ortiz wanted to see [...] Corona RN 01/05/2023 10:[address] Osheas response sent via patients original Music Messenger (MM) message. Constanza Corona RN January 05, 2023 [...] Status:Closed by CONSTANZA CORONA on 01/04/23 [facility] 01-01-2023 Albumin [Mass/Vol] 3.6 g/dL Normal 3.4-5.0 [facility] Comment on above: Performed By: #### L BRODIE #### [facility] [address] [place] [address] Dr. Sincere Wood Albumin/Globulin [Mass ratio] 0.9 {ratio} Normal [facility] Comment on above: Performed By: #### L IVER #### [facility] [address] [place] [address] Dr. Sincere Wood ALP [Catalytic activity/Vol] 166 U/L Critically high 46-116 [facility] Comment on above: Performed By: #### L IVER #### [facility] [address] [address] [address] Sincere Wood ALT [Catalytic activity/Vol] 49 U/L Normal 14-59 [facility] Comment on above: Performed By: #### L IVER #### [facility] [address] [place] [address] Dr. Sincere Wood AST [Catalytic activity/Vol] 27 U/L Normal 15-37 [facility] Comment on above: Performed By: #### L IVER #### [facility] [address] [place] [address] Dr. Sincere Wood BILI, CONJUGATED 0.1 mg/dL Normal 0.0-0.2 [facility] Comment on above: Performed By: #### L IVER #### [facility] [address] [place] [address] Dr. Sincere Wood Bilirubin [Mass/Vol] 0.3 mg/dL Normal 0.2-1.0 [facility] Comment on above: Performed By: #### L IVER #### [facility] [address] [place] [address] Dr. Sincere Wood Globulin (S) [Mass/Vol] 4.0 g/dL Normal [facility] Comment on above: Performed By: #### L IVER #### [facility] [address] [place] [address] Dr. Sincere Wood Protein [Mass/Vol] 7.6 g/dL Normal 6.4-8.2 [facility] Comment on above: Performed By: #### L IVER #### [facility] [address] [place] [address] Dr. Sincere Wood MMR IMMUNITYon 11-24-2022 Mumps Abs, IgG 19.7 AU/mL Normal Immune >10.9 [facility] Comment on above: Result Comment: Nega tive <9.0 Equivocal 9.0 - 10.9 Positive >10.9 A positive result generally indicates past exposure to Mumps virus or previous vaccination. Performed By: #### M MRIMMU #### [facility] [address] [place] [address] Dr. Sincere Wood Rubella Antibodies, IgG <0.90 Critically low Immune >0.99 [facility] Comment on above: Result Comment: Non- immune <0.90 Equivocal 0.90 - 0.99 Immune >0.99 Performed By: #### M MRIMMU #### [facility] [address] [place] [address] Dr. Sincere Wood Rubeola Ab, IgG 23.4 AU/mL Normal Immune >16.4 [facility] Comment on above: Result Comment: Nega tive <13.5 Equivocal 13.5 - 16.4 Positive >16.4 Presence of antibodies to Rubeola is presumptive evidence of immunity except when acute infection is suspected. Performed By: #### M MRIMMU #### [facility] [address] [place] [address] Dr. Sincere Wood FREE T3on 10-26-2022 FREE T3 1.72 pg/mlL Critically low 2.18-3.98 [facility] Comment on above: Performed By: #### E STRADI #### [facility] [address] [place] [address] Dr. Sincere Wood FREE T4on 10-26-2022 Free T4 [Mass/Vol] 1.62 ng/dL Critically high 0.76-1.46 [facility] Comment on above: Performed By: #### F T4 #### [facility] [address] [place] [address] Dr. Sincere Wood TSHon 10-26-2022 TSH 3.966 uIU/mL Critically high 0.358-3.740 [facility] Comment on above: Performed By: #### E STRADI #### [facility] [address] [place] [address] Dr. Sincere Wood ESTRADIOLon 09-23-2022 Estradiol 10.5 pg/mL Normal [facility] Comment on above: Result Comment: Adul t Female: Follicular phase 12.5 - 166.0 Ovulation phase 85.8 - 498.0 Luteal phase 43.8 - 211.0 Postmenopausal <6.0 - 54.7 1st trimester 215.0 - >4300.0 Ana ECLIA methodology Performed By: #### E VERONICA #### [facility] [address] [place] [address] Dr. Sincere Wood FSHon 09-23-2022 FSH 56.5 mIU/mL Normal [facility] Comment on above: Result Comment: Adul t Female: Follicular phase 3.5 - 12.5 Ovulation phase 4.7 - 21.5 Luteal phase 1.7 - 7.7 Postmenopausal 25.8 - 134.8 Performed By: #### E VERONICA #### [facility] [address] [place] [address] Dr. Sincere Wood TESTOSTERONE, TOTALon 2021 Testosterone [Mass/Vol] 20 ng/dL Normal 4-50 [facility] Comment on above: Performed By: #### E VERONICA #### [facility] [address] [place] [address] Dr. Sincere Wood CBC AUTO DIFFon 09-22-2022 BASO # 0.0 103/ul Normal 0.0-0.1 [facility] Comment on above: Performed By: #### C BC #### [facility] [address] [place] [address] Dr. Sincere Wood Basophils/100 WBC (Bld) 0.5 % Normal 0.2-2.0 [facility] Comment on above: Performed By: #### C BC #### [facility] [address] [place] [address] Dr. Sincere Wood EO # 0.2 103/ul Normal 0.0-0.7 [facility] Comment on above: Performed By: #### C BC #### [facility] [address] [place] [address] Dr. Sincere Wood Eosinophils/100 WBC (Bld) 3.4 % Normal 0.9-7.0 [facility] Comment on above: Performed By: #### C BC #### [facility] [address] [place] [address] Dr. Sincere Wood Erythrocyte distribution width (RBC) [Ratio] 12.3 % Normal 11.0-15.0 [facility] Comment on above: Performed By: #### C BC #### [facility] [address] [place] [address] Dr. Sincere Wood Hematocrit (Bld) [Volume fraction] 36.8 % Normal 36.0-48.0 [facility] Comment on above: Performed By: #### C BC #### [facility] [address] [place] [address] Dr. Sincere Wood Hemoglobin (Bld) [Mass/Vol] 12.3 g/dL Normal 12.0-16.0 [facility] Comment on above: Performed By: #### C BC #### [facility] [address] [place] [address] Dr. Sincere Wood IG # 0.02 10e3/ul Normal 0.00-0.03 [facility] Comment on above: Performed By: #### C BC #### [facility] [address] [place] [address] Dr. Sincere Wood IG % 0.4 % Normal 0.0-0.5 [facility] Comment on above: Performed By: #### C BC #### [facility] [address] [place] [address] Dr. Sincere Wood LYMPH # 2.2 103/ul Normal 1.2-3.8 [facility] Comment on above: Performed By: #### C BC #### [facility] [address] [place] [address] Dr. Sincere Wood Lymphocytes/100 WBC (Bld) 38.4 % Normal 20.5-60.0 [facility] Comment on above: Performed By: #### C BC #### [facility] [address] [place] [address] Dr. Sincere Wood MANUAL DIFF REQ NO Normal [facility] Comment on above: Performed By: #### C BC #### [facility] [address] [place] [address] Dr. Sincere Wood MCH (RBC) [Entitic mass] 29.6 pg Normal 26.7-34.0 [facility] Comment on above: Performed By: #### C BC #### [facility] [address] [place] [address] Dr. Sincere Wood MCHC (RBC) [Mass/Vol] 33.4 g/dL Normal 29.9-35.2 [facility] Comment on above: Performed By: #### C BC #### [facility] [address] [place] [address] Dr. Sincere Wood MCV (RBC) [Entitic vol] 88.7 fL Normal 81.0-99.0 [facility] Comment on above: Performed By: #### C BC #### [facility] Laboratory [address] [place] [address] Dr. Sincere Wood MONO # 0.5 103/ul Normal 0.3-0.8 [facility] Comment on above: Performed By: #### C BC #### [facility] [address] [place] [address] Dr. Sincere Wood Monocytes/100 WBC (Bld) 9.1 % Normal 1.7-12.0 [facility] Comment on above: Performed By: #### C BC #### [facility] [address] [place] [address] Dr. Sincere Wood NEUT # 2.7 103/ul Normal 1.4-6.5 [facility] Comment on above: Performed By: #### C BC #### [facility] [address] [place] [address] Dr. Sincere Wood Neutrophils/100 WBC (Bld) 48.2 % Normal 43.0-75.0 [facility] Comment on above: Performed By: #### C BC #### [facility] [address] [place] [address] Dr. Sincere Wood Platelet mean volume (Bld) [Entitic vol] 10.0 fL Normal 9.5-13.5 [facility] Comment on above: Performed By: #### C BC #### [facility] [address] [place] [address] Dr. Sincere Wood PLT 302 103/ul Normal 150-450 [facility] Comment on above: Performed By: #### C BC #### [facility] [address] [address] [address] Sincere Wood RBC 4.15 106/ul Critically low 4.20-5.40 [facility] Comment on above: Performed By: #### C BC #### [facility] [address] [address] [address] Sincere Wood WBC 5.6 103/ul Normal 4.0-11.0 [facility] Comment on above: Performed By: #### C BC #### [facility] [address] [place] [address] Dr. Sincere Wood PROF 14(COMP METB)on 022 Albumin [Mass/Vol] 3.6 g/dL Normal 3.4-5.0 [facility] Comment on above: Performed By: #### C MP #### [facility] [address] [place] [address] Dr. Sincere Wood Albumin/Globulin [Mass ratio] 0.9 {ratio} Normal [facility] Comment on above: Performed By: #### C MP #### [facility] [address] [place] [address] Dr. Sincere Wood ALP [Catalytic activity/Vol] 153 U/L Critically high 46-116 [facility] Comment on above: Performed By: #### C MP #### [facility] [address] [address] [address] Sincere Wood ALT [Catalytic activity/Vol] 53 U/L Normal 14-59 [facility] Comment on above: Performed By: #### C MP #### [facility] [address] [place] [address] Dr. Sincere Wood Anion gap [Moles/Vol] 11.6 mmol/L Normal [facility] Comment on above: Performed By: #### C MP #### [facility] [address] [address] [address] Sincere Wood AST [Catalytic activity/Vol] 30 U/L Normal 15-37 [facility] Comment on above: Performed By: #### C MP #### [facility] [address] [address] [address] Sincere Wood Bilirubin [Mass/Vol] 0.3 mg/dL Normal 0.2-1.0 [facility] Comment on above: Performed By: #### C MP #### [facility] [address] [address] [address] Sincere Wood Calcium [Mass/Vol] 9.1 mg/dL Normal 8.5-10.1 [facility] Comment on above: Performed By: #### C MP #### [facility] [address] [address] [address] Sincere Wood Chloride [Moles/Vol] 102 mmol/L Normal 98-107 [facility] Comment on above: Performed By: #### C MP #### [facility] [address] [address] [address] Sincere Wood CO2 [Moles/Vol] 28.6 mmol/L Normal 21.0-32.0 [facility] Comment on above: Performed By: #### C MP #### [facility] [address] [address] [address] Sincere Wood Creatinine [Mass/Vol] 0.85 mg/dL Normal 0.55-1.02 [facility] Comment on above: Performed By: #### C MP #### [facility] [address] [address] [address] Sincere Wood EGFR-AF HONDURAN >60 Normal >=60 [facility] Comment on above: Performed By: #### C MP #### [facility] [address] [address] [address] Sincere Wood EGFR-NON AF HONDURAN >60 Normal >=60 [facility] Comment on above: Performed By: #### C MP #### [facility] [address] [address] [address] Sincere Wood Globulin (S) [Mass/Vol] 4.0 g/dL Normal [facility] Comment on above: Performed By: #### C MP #### [facility] [address] [address] [address] Sincere Wood Glucose [Mass/Vol] 89 mg/dL Normal 74-[address] [facility] Comment on above: Performed By: #### C MP #### [facility] [address] [address] [address] Sincere Wood Potassium [Moles/Vol] 4.2 mmol/L Normal 3.5-5.1 [facility] Comment on above: Performed By: #### C MP #### [facility] [address] [place] [address] Dr. Sincere Wood Protein [Mass/Vol] 7.6 g/dL Normal 6.4-8.[address] [facility] Comment on above: Performed By: #### C MP #### [facility] [address] [place] [address] Dr. Sincere Wood Sodium [Moles/Vol] 138 mmol/L Normal 136-[address] [facility] Comment on above: Performed By: #### C MP #### [facility] [address] [place] [address] Dr. Sincere Wood Urea nitrogen [Mass/Vol] 16.0 mg/dL Normal 7.0-18.0 [facility] Comment on above: Performed By: #### C MP #### [facility] [address] [place] [address] Dr. Sincere Wood Urea nitrogen/Creatinine [Mass ratio] 18.8 mg/mg Normal [facility] Comment on above: Performed By: #### C MP #### [facility] [address] [place] [address] Dr. Sincere Wood PROF 14(COMP METB)on 022 Albumin [Mass/Vol] 3.6 g/dL Normal 3.4-5.0 [facility] Comment on above: Performed By: #### C MP #### [facility] [address] [place] [address] Dr. Sincere Wood Albumin/Globulin [Mass ratio] 0.9 {ratio} Normal [facility] Comment on above: Performed By: #### C MP #### [facility] [address] [place] [address] Dr. Sincere Wood ALP [Catalytic activity/Vol] 138 U/L Critically high 46-116 [facility] Comment on above: Performed By: #### C MP #### [facility] [address] [place] [address] Dr. Sincere Wood ALT [Catalytic activity/Vol] 46 U/L Normal 14-59 [facility] Comment on above: Performed By: #### C MP #### [facility] [address] [place] [address] Dr. Sincere Wood Anion gap [Moles/Vol] 13.4 mmol/L Normal [facility] Comment on above: Performed By: #### C MP #### [facility] [address] [place] [address] Dr. Sincere Wood AST [Catalytic activity/Vol] 35 U/L Normal 15-37 [facility] Comment on above: Performed By: #### C MP #### [facility] [address] [place] [address] Dr. Sincere Wood Bilirubin [Mass/Vol] 0.4 mg/dL Normal 0.2-1.0 [facility] Comment on above: Performed By: #### C MP #### [facility] [address] [place] [address] Dr. Sincere Wood Calcium [Mass/Vol] 9.1 mg/dL Normal 8.5-10.1 [facility] Comment on above: Performed By: #### C MP #### [facility] [address] [place] [address] Dr. Sincere Wood Chloride [Moles/Vol] 105 mmol/L Normal 98-107 [facility] Comment on above: Performed By: #### C MP #### [facility] [address] [place] [address] Dr. Sincere Wood CO2 [Moles/Vol] 26.2 mmol/L Normal 21.0-32.0 [facility] Comment on above: Performed By: #### C MP #### [facility] [address] [address] [address] Sincere Wood Creatinine [Mass/Vol] 0.76 mg/dL Normal 0.55-1.02 [facility] Comment on above: Performed By: #### C MP #### [facility] [address] [address] [address] Sincere Wood EGFR-AF HONDURAN >60 Normal >=60 [facility] Comment on above: Performed By: #### C MP #### [facility] [address] [address] [address] Sincere Wood EGFR-NON AF HONDURAN >60 Normal >=60 [facility] Comment on above: Performed By: #### C MP #### [facility] [address] [place] [address] Dr. Sincere Wood Globulin (S) [Mass/Vol] 4.0 g/dL Normal [facility] Comment on above: Performed By: #### C MP #### [facility] [address] [address] [address] Sincere Wood Glucose [Mass/Vol] 103 mg/dL Normal 74-[address] [facility] Comment on above: Performed By: #### C MP #### [facility] [address] [place] [address] Dr. Sincere Wood Potassium [Moles/Vol] 4.6 mmol/L Normal 3.5-5.1 [facility] Comment on above: Performed By: #### C MP #### [facility] [address] [place] [address] Dr. Sincere Wood Protein [Mass/Vol] 7.6 g/dL Normal 6.4-8.[address] [facility] Comment on above: Performed By: #### C MP #### [facility] [address] [address] [address] Sincere Wood Sodium [Moles/Vol] 140 mmol/L Normal 136-[address] [facility] Comment on above: Performed By: #### C MP #### [facility] [address] [address] [address] Sincere Wood Urea nitrogen [Mass/Vol] 21.0 mg/dL Critically high 7.0-18.0 [facility] Comment on above: Performed By: #### C MP #### [facility] [address] [address] [address] Sincere Wood Urea nitrogen/Creatinine [Mass ratio] 27.6 mg/mg Normal [facility] Comment on above: Performed By: #### C MP #### [facility] [address] [address] [address] Sincere Wood SCREENING MAMMOGRAM W/PRINCE, BILATERAL*on [...] VERY IMPORTANT TO YOUR HEALTH. THE CURRENT [employer] GUIDELINES RECOMMENDS ANNUAL MAMMOGRAPHY BEGINNING AT AGE 41 THIS FACILITY USES A REMINDER SYSTEM TO ENSURE ALL PATIENTS RECEIVE REMINDER NOTIFICATIONS AT THE APPROPRIATE TIME BASED ON THE RECOMMENDATIONS OF THIS EXAM. Board Certified Radiologist. Accredited by the ACR and FDA. Report reported and signed by Davian Lewis on 03/29/2022 1139 Normal [facility] CBC AUTO DIFFon 02-18-2022 BASO # 0.0 103/ul Normal 0.0-0.1 [facility] Comment on above: Performed By: #### C BC #### [facility] [address] [address] [address] Sincere Wood Basophils/100 WBC (Bld) 0.7 % Normal 0.2-2.0 [facility] Comment on above: Performed By: #### C BC #### [facility] [address] [address] [address] Sincere Wood EO # 0.2 103/ul Normal 0.0-0.7 [facility] Comment on above: Performed By: #### C BC #### [facility] [address] [place] [address] Dr. Sincere Wood Eosinophils/100 WBC (Bld) 3.1 % Normal 0.9-7.0 [facility] Comment on above: Performed By: #### C BC #### [facility] [address] [place] [address] Dr. Sincere Wood Erythrocyte distribution width (RBC) [Ratio] 13.0 % Normal 11.0-15.0 [facility] Comment on above: Performed By: #### C BC #### [facility] [address] [place] [address] Dr. Sincere Wood Hematocrit (Bld) [Volume fraction] 38.8 % Normal 36.0-48.0 [facility] Comment on above: Performed By: #### C BC #### [facility] [address] [place] [address] Dr. Sincere Wood Hemoglobin (Bld) [Mass/Vol] 12.2 g/dL Normal 12.0-16.0 [facility] Comment on above: Performed By: #### C BC #### [facility] [address] [place] [address] Dr. Sincere Wood IG # 0.03 10e3/ul Normal 0.00-0.03 [facility] Comment on above: Performed By: #### C BC #### [facility] [address] [place] [address] Dr. Sincere Wood IG % 0.5 % Normal 0.0-0.5 [facility] Comment on above: Performed By: #### C BC #### [facility] [address] [place] [address] Dr. Sincere Wood LYMPH # 1.9 103/ul Normal 1.2-3.8 [facility] Comment on above: Performed By: #### C BC #### [facility] [address] [place] [address] Dr. Sincere Wood Lymphocytes/100 WBC (Bld) 34.4 % Normal 20.5-60.0 [facility] Comment on above: Performed By: #### C BC #### [facility] [address] [place] [address] Dr. Sincere Wood MANUAL DIFF REQ NO Normal [facility] Comment on above: Performed By: #### C BC #### [facility] [address] [place] [address] Dr. iSncere Wood MCH (RBC) [Entitic mass] 30.1 pg Normal 26.7-34.0 [facility] Comment on above: Performed By: #### C BC #### [facility] [address] [place] [address] Dr. Sincere Wood MCHC (RBC) [Mass/Vol] 31.4 g/dL Normal 29.9-35.2 [facility] Comment on above: Performed By: #### C BC #### [facility] [address] [place] [address] Dr. Sincere Wood MCV (RBC) [Entitic vol] 95.8 fL Normal 81.0-99.0 [facility] Comment on above: Performed By: #### C BC #### [facility] [address] [place] [address] Dr. Sincere Wood MONO # 0.5 103/ul Normal 0.3-0.8 [facility] Comment on above: Performed By: #### C BC #### [facility] [address] [place] [address] Dr. Sincere Wood Monocytes/100 WBC (Bld) 8.8 % Normal 1.7-12.0 [facility] Comment on above: Performed By: #### C BC #### [facility] [address] [place] [address] Dr. Sincere Wood NEUT # 2.9 103/ul Normal 1.4-6.5 [facility] Comment on above: Performed By: #### C BC #### [facility] [address] [place] [address] Dr. Sincere Wood Neutrophils/100 WBC (Bld) 52.5 % Normal 43.0-75.0 [facility] Comment on above: Performed By: #### C BC #### [facility] [address] [address] [address] Sincere Wood Platelet mean volume (Bld) [Entitic vol] 10.8 fL Normal 9.5-13.5 [facility] Comment on above: Performed By: #### C BC #### [facility] [address] [address] [address] Sincere Wood PLT 289 103/ul Normal 150-450 [facility] Comment on above: Performed By: #### C BC #### [facility] [address] [address] [address] Sincere Wood RBC 4.05 106/ul Critically low 4.20-5.40 [facility] Comment on above: Performed By: #### C BC #### [facility] [address] [address] [address] Sincere Wood WBC 5.6 103/ul Normal 4.0-11.0 [facility] Comment on above: Performed By: #### C BC #### [facility] [address] [address] [address] Sincere Wood GLYCOHEMOGLOBIN A1Con 2021 ADA RECOMMENDATION SEE BELOW Normal [facility] Comment on above: Result Comment: ADA RECOMMENDED LIMIT 4.0 - 6.0 ADA THERAPEUTIC TARGET < 7.0 ACTION SUGGESTED > 7.0 Performed By: #### A 1C #### [facility] [address] [address] [address] Sincere Wood Glucose [Mass/Vol] 117 mg/dL Normal [facility] Comment on above: Performed By: #### A 1C #### [facility] [address] [address] [address] Sincere Wood HbA1c (Bld) [Mass fraction] 5.7 % Normal 4.5-6.2 [facility] Comment on above: Performed By: #### A 1C #### [facility] [address] [place] [address] Dr. Sincere Wood PROF 14(COMP METB)on 022 Albumin [Mass/Vol] 3.4 g/dL Normal 3.4-5.0 [facility] Comment on above: Performed By: #### C MP #### [facility] [address] [place] [address] Dr. Sincere Wood Albumin/Globulin [Mass ratio] 0.8 {ratio} Normal [facility] Comment on above: Performed By: #### C MP #### [facility] [address] [address] [address] Sincere Wood ALP [Catalytic activity/Vol] 150 U/L Critically high 46-116 [facility] Comment on above: Performed By: #### C MP #### [facility] [address] [address] [address] Sincere Wood ALT [Catalytic activity/Vol] 85 U/L Critically high 14-59 [facility] Comment on above: Performed By: #### C MP #### [facility] [address] [place] [address] Dr. Sincere Wood Anion gap [Moles/Vol] 11.4 mmol/L Normal [facility] Comment on above: Performed By: #### C MP #### [facility] [address] [place] [address] Dr. iSncere Wood AST [Catalytic activity/Vol] 46 U/L Critically high 15-37 [facility] Comment on above: Performed By: #### C MP #### [facility] [address] [address] [address] Sincere Wood Bilirubin [Mass/Vol] 0.3 mg/dL Normal 0.2-1.0 [facility] Comment on above: Performed By: #### C MP #### [facility] [address] [address] [address] Sincere Wood Calcium [Mass/Vol] 8.9 mg/dL Normal 8.5-10.1 [facility] Comment on above: Performed By: #### C MP #### [facility] [address] [place] [address] Dr. Sincere Wood Chloride [Moles/Vol] 104 mmol/L Normal 98-107 [facility] Comment on above: Performed By: #### C MP #### [facility] [address] [address] [address] Sincere Wood CO2 [Moles/Vol] 28.6 mmol/L Normal 21.0-32.0 [facility] Comment on above: Performed By: #### C MP #### [facility] [address] [address] [address] Sincere Wood Creatinine [Mass/Vol] 0.69 mg/dL Normal 0.55-1.02 [facility] Comment on above: Performed By: #### C MP #### [facility] [address] [address] [address] Sincere Wood EGFR-AF HONDURAN >60 Normal >=60 [facility] Comment on above: Performed By: #### C MP #### [facility] [address] [place] [address] Dr. Sincere Wood EGFR-NON AF HONDURAN >60 Normal >=60 [facility] Comment on above: Performed By: #### C MP #### [facility] [address] [address] [address] Sincere Wood Globulin (S) [Mass/Vol] 4.1 g/dL Normal [facility] Comment on above: Performed By: #### C MP #### [facility] [address] [address] [address] Sincere Wood Glucose [Mass/Vol] 96 mg/dL Normal 74-[address] [facility] Comment on above: Performed By: #### C MP #### [facility] [address] [address] [address] Sincere Wodo Potassium [Moles/Vol] 4.0 mmol/L Normal 3.5-5.1 [facility] Comment on above: Performed By: #### C MP #### [facility] [address] [place] [address] Dr. Sincere Wood Protein [Mass/Vol] 7.5 g/dL Normal 6.4-8.[address] [facility] Comment on above: Performed By: #### C MP #### [facility] [address] [address] [address] Sincere Wood Sodium [Moles/Vol] 140 mmol/L Normal 136-145 [facility] Comment on above: Performed By: #### C MP #### [facility] [address] [address] [address] Sincere Wood Urea nitrogen [Mass/Vol] 19.0 mg/dL Critically high 7.0-18.0 [facility] Comment on above: Performed By: #### C MP #### [facility] [address] [address] [address] Sincere Wood Urea nitrogen/Creatinine [Mass ratio] 27.5 mg/mg Normal [facility] Comment on above: Performed By: #### C MP #### [facility] [address] [address] [address] Sincere Wood Free T3on 11-09-2021 FT3 2.72 pg/mL Normal 2.00-4.40 [facility] Comment on above: Performed By: #### F T4, TSH, VITD, FT3 #### [facility] [address] [place], [place] [id number] Free T4on 11-09-2021 Free T4 [Mass/Vol] 1.50 ng/dL Normal 0.80-1.80 [facility] Comment on above: Performed By: #### F T4, TSH, VITD, FT3 #### [facility] [address] [place], [place] [id number] TSHon 11-09-2021 TSH 0.298 uIU/mL Low 0.400-4.500 [facility] Comment on above: Performed By: #### F T4, TSH, VITD, FT3 #### [facility] [address] [place], [place] [id number] Vitamin D 25-OHon 11-09-2021 VIT D 25 OH 53 ng/ml Normal >29 [facility] Comment on above: Result Comment: Bernie min D Status Deficiency <20 ng/mL Insufficiency 20-29 ng/mL Optimal 30-100 ng/mL Possible Toxicity >=150 ng/mL Performed By: #### F T4, TSH, VITD, FT3 #### [facility] [address] [place], [place] [id number] Vital Signs Date Time Vital Sign Value Performing Clinician Facility 02-20-2024 11:59-0400 Body mass index (BMI) [Ratio] 34.6 kg/m2 Minoo Hernandez MD Work Phone: [facility] 02-20-2024 11:59-0400 Body temperature 97 [degF] Minoo Hernandez MD Work Phone: [facility] 02-20-2024 11:59-0400 Body weight 85.8 kg Minoo Hernandez MD Work Phone: [facility] 02-20-2024 11:59-0400 Diastolic blood pressure 72 mm[Hg] Minoo Hernandez MD Work Phone: [facility] 02-20-2024 11:59-0400 Heart rate 73 /min Minoo Hernandez MD Work Phone: [facility] 02-20-2024 11:59-0400 Respiratory rate 16 /min Minoo Hernandez MD Work Phone: [facility] 02-20-2024 11:59-0400 SaO2% (BldA) [Mass fraction] 97 % Minoo Hernandez MD Work Phone: [facility] 02-20-2024 11:59-0400 Systolic blood pressure 110 mm[Hg] Minoo Hernandez MD Work Phone: [facility] 01-19-2024 11:16-0400 Body temperature 97.3 [degF] Minoo Hernandez MD Work Phone: [facility] 01-19-2024 11:16-0400 Diastolic blood pressure 62 mm[Hg] Minoo Hernandez MD Work Phone: [facility] 01-19-2024 11:16-0400 Heart rate 52 /min Minoo Hernandez MD Work Phone: [facility] 01-19-2024 11:16-0400 Respiratory rate 16 /min Minoo Hernandez MD Work Phone: [facility] 01-19-2024 11:16-0400 Systolic blood pressure 115 mm[Hg] Minoo Hernandez MD Work Phone: [facility] 01-19-2024 11:13-0400 SaO2% (BldA) [Mass fraction] 98 % Minoo Hernandez MD Work Phone: [facility] 01-19-2024 06:25-0400 Body mass index (BMI) [Ratio] 34.68 kg/m2 Minoo Hernandez MD Work Phone: [facility] 01-19-2024 06:25-0400 Body weight 86 kg Minoo Hernandez MD Work Phone: [facility] 01-18-2024 10:54-0400 Blood Pressure Location Haider Sarmini [facility] 01-18-2024 10:54-0400 Diastolic blood pressure 70 mm[Hg] Haider Sarmini [facility] 01-18-2024 10:54-0400 Heart rate 72 /min Haider Sarmini [facility] 01-18-2024 10:54-0400 Respiratory rate 16 /min Haider Sarmini [facility] 01-18-2024 10:54-0400 Systolic blood pressure 106 mm[Hg] Haider Sarmini [facility] 12-06-2023 11:07-0500 Body height 157.5 cm Kely Crain APRN-GERRY Work Phone: [facility] 12-06-2023 11:07-0500 Body mass index (BMI) [Ratio] 33.65 kg/m2 Kely Crain DISTANCE EDUCATION FACULTY LIAISON-HEALTH ADMINISTRATOR Work Phone: [facility] 12-06-2023 11:07-0500 Body weight 83.46 kg Kely Crain DISTANCE EDUCATION FACULTY LIAISON-HEALTH ADMINISTRATOR Work Phone: [facility] 12-06-2023 11:07-0500 Diastolic blood pressure 75 mm[Hg] Kely Crain DISTANCE EDUCATION FACULTY LIAISON-HEALTH ADMINISTRATOR Work Phone: [phone] [place] [address] 12-06-2023 11:07-0500 Heart rate 74 /min Kely Carin DISTANCE EDUCATION FACULTY LIAISON-HEALTH ADMINISTRATOR Work Phone: [phone] [place] [address] 12-06-2023 11:07-0500 Respiratory rate 16 /min Kely Crain DISTANCE EDUCATION FACULTY LIAISON-HEALTH ADMINISTRATOR Work Phone: [facility] 12-06-2023 11:07-0500 Systolic blood pressure 127 mm[Hg] Kely Crain DISTANCE EDUCATION FACULTY LIAISON-HEALTH ADMINISTRATOR Work Phone: [facility] 11-14-2023 10:48-0500 Blood Pressure Location Haider Sarmini [facility] 11-14-2023 10:48-0500 Diastolic blood pressure 78 mm[Hg] Haider Sarmini [facility] 11-14-2023 10:48-0500 Heart rate 80 /min Haider Sarmini [facility] 11-14-2023 10:48-0500 Respiratory rate 18 /min Haider Sarmini [facility] 11-14-2023 10:48-0500 Systolic blood pressure 120 mm[Hg] Haider Sarmini [facility] 11-07-2023 15:55-0500 Body mass index (BMI) [Ratio] 34.44 kg/m2 Minoo Hernandez MD Work Phone: [facility] 11-07-2023 15:55-0500 Body temperature 97.3 [degF] Minoo Hernandez MD Work Phone: [facility] 11-07-2023 15:55-0500 Body weight 85.4 kg Minoo Hernandez MD Work Phone: [facility] 11-07-2023 15:55-0500 Diastolic blood pressure 73 mm[Hg] Minoo Hernandez MD Work Phone: [facility] 11-07-2023 15:55-0500 Heart rate 82 /min Minoo Hernandez MD Work Phone: [facility] 11-07-2023 15:55-0500 Respiratory rate 14 /min Minoo Hernandez MD Work Phone: [facility] 11-07-2023 15:55-0500 Systolic blood pressure 106 mm[Hg] Minoo Hernandez MD Work Phone: [facility] 10-26-2023 12:57-0500 Body height 157.5 cm Kely Crain DISTANCE EDUCATION FACULTY LIAISON-HEALTH ADMINISTRATOR Work Phone: [facility] 10-26-2023 12:57-0500 Body mass index (BMI) [Ratio] 32.92 kg/m2 Kely Crain DISTANCE EDUCATION FACULTY LIAISON-HEALTH ADMINISTRATOR Work Phone: [facility] 10-26-2023 12:57-0500 Body weight 81.65 kg Kely Crain DISTANCE EDUCATION FACULTY LIAISON-HEALTH ADMINISTRATOR Work Phone: [facility] 10-26-2023 12:57-0500 Diastolic blood pressure 70 mm[Hg] Kely Crain APRN-HEALTH ADMINISTRATOR Work Phone: [facility] 10-26-2023 12:57-0500 Heart rate 76 /min Kely Crain DISTANCE EDUCATION FACULTY LIAISON-HEALTH ADMINISTRATOR Work Phone: [facility] 10-26-2023 12:57-0500 Respiratory rate 16 /min Kely Paras DISTANCE EDUCATION FACULTY LIAISON-HEALTH ADMINISTRATOR Work Phone: [facility] 10-26-2023 12:57-0500 Systolic blood pressure 96 mm[Hg] Kely Garnicarosetta DISTANCE EDUCATION FACULTY LIAISON-HEALTH ADMINISTRATOR Work Phone: [facility] 10-06-2023 14:50-0500 Diastolic blood pressure 67 mm[Hg] Vance Garcia MD Work Phone: [facility] 10-06-2023 14:50-0500 Heart rate 81 /min Vance Garcia MD Work Phone: [facility] 10-06-2023 14:50-0500 Respiratory rate 17 /min Vance Garcia MD Work Phone: [facility] 10-06-2023 14:50-0500 SaO2% (BldA) [Mass fraction] 97 % Vance Garcia MD Work Phone: [facility] 10-06-2023 14:50-0500 Systolic blood pressure 105 mm[Hg] Vance Garcia MD Work Phone: [facility] 10-06-2023 14:20-0500 Body temperature 96.69 [degF] Vance Garcia MD Work Phone: [facility] 10-06-2023 12:12-0500 Body height 160 cm Vance Garcia MD Work Phone: [facility] 10-06-2023 12:12-0500 Body mass index (BMI) [Ratio] 31.53 kg/m2 Vance Garcia MD Work Phone: [facility] 10-06-2023 12:12-0500 Body weight 80.74 kg Vance Gacria MD Work Phone: [facility] 09-21-2023 10:36-0500 Body mass index (BMI) [Ratio] 32.65 kg/m2 Hermes Montelongo DISTANCE EDUCATION FACULTY LIAISON-HEALTH ADMINISTRATOR Work Phone: [facility] 09-21-2023 10:36-0500 Body temperature 98.1 [degF] Hermes Montelongo APRN-HEALTH ADMINISTRATOR Work Phone: [facility] 09-21-2023 10:36-0500 Body weight 83.6 kg Hermes Montelongo DISTANCE EDUCATION FACULTY LIAISON-HEALTH ADMINISTRATOR Work Phone: [facility] 09-21-2023 10:36-0500 Diastolic blood pressure 69 mm[Hg] Hermes Montelongo DISTANCE EDUCATION FACULTY LIAISON-HEALTH ADMINISTRATOR Work Phone: [facility] 09-21-2023 10:36-0500 Heart rate 85 /min Hermes Montelongo APRN-HEALTH ADMINISTRATOR Work Phone: [facility] 09-21-2023 10:36-0500 Respiratory rate 16 /min Hermes Montelongo DISTANCE EDUCATION FACULTY LIAISON-HEALTH ADMINISTRATOR Work Phone: [facility] 09-21-2023 10:36-0500 SaO2% (BldA) [Mass fraction] 98 % Hermes Montelongo DISTANCE EDUCATION FACULTY LIAISON-HEALTH ADMINISTRATOR Work Phone: [facility] 09-21-2023 10:36-0500 Systolic blood pressure 101 mm[Hg] Hermes Montelongo DISTANCE EDUCATION FACULTY LIAISON-HEALTH ADMINISTRATOR Work Phone: [facility] 05-12-2023 13:45-0400 Blood Pressure Location Reeves SALAM [facility] 05-12-2023 13:45-0400 Body temperature 97.88 [degF] Reeves SALAM [facility] 05-12-2023 13:45-0400 Diastolic blood pressure 75 mm[Hg] Reeves SALAM [facility] 05-12-2023 13:45-0400 Heart rate 69 /min Reeves SALAM [facility] 05-12-2023 13:45-0400 Respiratory rate 16 /min Reeves SALAM [facility] 05-12-2023 13:45-0400 Systolic blood pressure 111 mm[Hg] Reeves SALAM [facility] 01-12-2023 10:45-0400 Blood Pressure Location Reeves SALAM [facility] 01-12-2023 10:45-0400 Diastolic blood pressure 86 mm[Hg] Reeves SALAM [facility] 01-12-2023 10:45-0400 Heart rate 75 /min Reeves SALAM [facility] 01-12-2023 10:45-0400 Respiratory rate 16 /min Reeves SALAM [facility] 01-12-2023 10:45-0400 Systolic blood pressure 124 mm[Hg] Reeves SALAM [facility] 05-13-2022 13:18-0400 Blood Pressure Location Reeves SALAM [facility] 05-13-2022 13:18-0400 Diastolic blood pressure 76 mm[Hg] Reeves SALAM [facility] 05-13-2022 13:18-0400 Heart rate 68 /min Reeves SALAM [facility] 05-13-2022 13:18-0400 Respiratory rate 16 /min Reeves SALAM [facility] 05-13-2022 13:18-0400 Systolic blood pressure 110 mm[Hg] Leandro BILL [facility] Encounters Encounter Date Encounter Type Care Provider Facility Start: 07-05-2024 End: 07-09-2024 Refill Annette Cha NP Work Phone: [facility] Comment on above: Avitaminosis D (Prim erich Dx) Start: 05-23-2024 End: 05-23-2024 ambulatory ARNULFO RYAN [place] Start: 05-23-2024 End: 05-23-2024 Patient encounter procedure ARNULFO Alexx [facility] Start: 05-14-2024 End: 05-14-2024 ambulatory [facility] Start: 05-08-2024 End: 05-08-2024 ambulatory [facility] Start: 04-26-2024 End: 04-26-2024 ambulatory GILBERT WATSON Facility:[facility] Helen robins Start: 04-24-2024 End: 04-24-2024 [facility] Start: 04-23-2024 End: 04-23-2024 ambulatory ANGELY KENT Not Available Start: 04-18-2024 End: 04-18-2024 ambulatory ADOLFO RAMIREZ Not Available Start: 02-28-2024 End: 02-28-2024 ambulatory ANGELY KENT Not Available Start: 02-24-2024 End: 02-25-2024 ambulatory YOGESH [facility] Start: 02-24-2024 End: 02-24-2024 ambulatory [facility] Start: 02-24-2024 End: 02-24-2024 Office outpatient new 45 minutes Yogesh Gonzalez MD Work Phone: [facility] Comment on above: Hypothyroidism, unsp ecified type (Primary Dx); Vitamin D deficiency Start: 02-20-2024 End: 02-20-2024 Postop follow up visit related to original px Minoo Hernandez MD Work Phone: [facility] Comment on above: BRCA positive (Prima ry Dx) Start: 02-20-2024 End: 02-20-2024 ambulatory MINOO HERNANDEZ [facility] Start: 01-19-2024 End: 01-19-2024 ambulatory MINOO HERNANDEZ [facility] Start: 01-19-2024 End: 01-19-2024 Subsequent hospital visit by physician Minoo Hernandez MD Work Phone: [facility] [place] Comment on above: Postoperative pain ( Primary Dx); BRCA gene mutation positive Start: 01-18-2024 End: 01-18-2024 ambulatory [facility] Facility:[facility] Start: 01-18-2024 End: 01-18-2024 Patient encounter procedure Vitaly Chisholm [facility] Start: 01-16-2024 End: 01-16-2024 ambulatory [facility] Start: 01-16-2024 End: 01-16-2024 Encounter for preprocedural laboratory examination [facility] Start: 12-21-2023 End: 12-21-[address] [facility] Start: 12-21-2023 End: 12-21-2023 Subsequent hospital visit by physician Troy Mri [facility] Comment on above: Abnormal MRI, breast ; Mass of lower outer quadrant of right breast Abnormal mammogram Start: 12-21-2023 End: 12-21-[address] [facility] Start: 12-19-2023 End: 12-19-2023 ambulatory MINOO HERNANDEZ [facility] Start: 12-19-2023 End: 12-19-2023 Encounter for other preprocedural examination MINOO J [facility] Start: 12-19-2023 End: 12-19-2023 Encounter for preprocedural cardiovascular examination MINOO Ruiz [facility] Start: 12-19-2023 End: 12-19-2023 Encounter for preprocedural respiratory examination MINOO Ruiz [facility] Start: 12-06-2023 End: 12-06-2023 Office outpatient visit 25 minutes Kely Mariam Garnicarosetta BARNES-HEALTH ADMINISTRATOR Work Phone: [facility] Comment on above: Abnormal MRI, breast (Primary Dx); Mass of lower outer quadrant of right breast; Situational anxiety Start: 12-06-2023 End: 12-06-2023 Subsequent hospital visit by physician Troy Mammo 2 [facility] Comment on above: Abnormal findings on diagnostic imaging of breast Abnormal MRI Start: 12-06-2023 End: 12-06-[address] [facility] Start: 12-06-2023 End: 12-06-[address] [facility] Start: 11-24-2023 End: 11-24-2023 Subsequent hospital visit by physician Troy Mri [facility] Comment on above: BRCA2 gene mutation positive; Breast cancer screening, high risk patient Start: 11-24-2023 End: 11-24-[address] [facility] Start: 11-21-2023 End: 11-21-2023 Subsequent hospital visit by physician Rad External Film EF RAD EXTERNAL FILM VIRTUAL Comment on above: Arrived Start: 11-21-2023 End: 11-21-2023 ambulatory KELY Becerra [facility] Start: 11-14-2023 End: 11-14-2023 ambulatory Vitaly Stauffer Facility:[facility] Start: 11-14-2023 End: 11-14-2023 Patient encounter procedure Vitaly Stauffer [facility] Start: 11-07-2023 End: 11-07-2023 Office outpatient visit 25 minutes Minoo Hernandez MD Work Phone: [facility] Comment on above: BRCA gene mutation p ositive (Primary Dx); BRCA positive Start: 11-07-2023 End: 11-07-2023 ambulatory MINOO HERNANDEZ [facility] Start: 10-26-2023 End: 10-26-2023 Office outpatient new 45 minutes Kely Crain DISTANCE EDUCATION FACULTY LIAISON-HEALTH ADMINISTRATOR Work Phone: [facility] Comment on above: Breast cancer screen ing, high risk patient (Primary Dx); BRCA2 gene mutation positive Start: 10-26-2023 End: 10-26-2023 ambulatory KELY CRAIN [facility] Start: 10-06-2023 End: 10-06-2023 Subsequent hospital visit by physician Vance Garcia MD Work Phone: [facility] Comment on above: BRCA positive; Primary biliary cholangitis (CMS/HCC); Familial malignant neoplasm of pancreas (CMS/HCC) Start: 10-06-2023 End: 10-06-2023 ambulatory [facility] Start: 10-05-2023 End: 10-05-2023 ambulatory [facility] Start: 10-05-2023 End: 10-05-2023 Phys/qhp telephone evaluation 21-30 min Vance Garcia MD Work Phone: [facility] Comment on above: BRCA positive (Prima ry Dx); Primary biliary cholangitis (CMS/HCC); Familial malignant neoplasm of pancreas (CMS/HCC) Start: 09-21-2023 End: 09-21-2023 Office outpatient new 30 minutes Hermes Montelongo DISTANCE EDUCATION FACULTY LIAISON-HEALTH ADMINISTRATOR Work Phone: [facility] Comment on above: BRCA positive (Prima ry Dx) Start: 09-21-2023 End: 09-21-2023 ambulatory HERMES MONTELONGO [facility] Start: 09-08-2023 ambulatory LYNDON Vogt [facility] Start: 09-06-2023 End: 09-06-2023 ambulatory [facility] Start: 08-09-2023 End: 08-10-2023 ambulatory [facility] Start: 05-12-2023 End: 05-12-2023 Patient encounter procedure Leandro BILL [facility] Start: 05-05-2023 Telephone encounter Yas Cardenas MD Work Phone: Gastroenterology Comment on above: Results Start: 04-20-2023 End: 04-20-2023 Patient encounter procedure YAS MEZA [facility] Start: 2023 Telephone encounter Yas Cardenas MD Work Phone: Gastroenterology Comment on above: Results Start: 04-06-2023 End: 04-06-2023 ambulatory Yas Meza MD Work Phone: Gastroenterology Comment on above: Fibroscan (ultrasoun d) Primary biliary chol angitis (HCC) (Primary Dx) Start: 04-06-2023 End: 04-06-2023 Telemedicine consultation with patient Yas Meza MD Work Phone: [facility] Start: 02-03-2023 End: 02-03-2023 Patient encounter procedure Leandro BILL [facility] Start: 01-12-2023 End: 01-12-2023 Patient encounter procedure Reeves SALAM [facility] Start: 01-04-2023 Telephone encounter Yas Cardenas MD Work Phone: Gastroenterology Comment on above: Orders Start: 01-01-2023 End: 01-02-2023 ambulatory REEVES SALAM Facility: Start: 11-23-2022 End: 11-24-2022 ambulatory SHAIKH Nirali GUO Facility:[facility] Start: 10-26-2022 End: 10-27-2022 ambulatory SHAIKH Nirali GUO Facility:[facility] Start: 10-11-2022 End: 10-11-2022 ambulatory Yas Meza MD Work Phone: Gastroenterology Comment on above: Primary biliary chol angitis (HCC) (Primary Dx) Start: 10-11-2022 End: 10-11-2022 Telemedicine consultation with patient Yas Meza MD Work Phone: [facility] Start: 09-22-2022 End: 09-23-2022 ambulatory SHAIKH Nirali GUO Facility:[facility] Start: 05-13-2022 End: 05-13-2022 Patient encounter procedure Leandro BILL [facility] Start: 05-07-2022 End: 05-08-2022 ambulatory SHAIKH Nirali GUO Facility:[facility] Start: 03-03-2022 End: 03-03-2022 ambulatory Yas Meza MD Work Phone: Gastroenterology Comment on above: Primary biliary chol angitis (HCC) Start: 03-03-2022 End: 03-03-2022 Telemedicine consultation with patient Yas Meza MD Work Phone: [facility] Start: 03-02-2022 Telephone encounter Shwetha Rodas (Pss) Gastroenterology Comment on above: Appointment Start: 02-18-2022 End: 02-19-2022 ambulatory SHAIKH Nirali GUO Facility:[facility] Procedures Date Procedure Procedure Detail Performing Clinician Start: 04-24-2024 Mammography Annette Cha [employer] Work Phone: Start: 04-18-2024 Microscopic observation [Identifier] in Cervix by Cyto stain Annette Cha ARTIFICIAL CANDY MAKER Work Phone: Start: 01-19-2024 DISCHARGE PATIENT MINOO HERNANDEZ Start: [...] aPTT in Blood by Coagulation assay MINOO Urban NEHATRONTrever Start: 01-16-2024 CANCER ANTIGEN 19-9 MINOO HERNANDEZ Start: 01-16-2024 CBC W Auto Differential panel - Blood MINOO HERNANDEZ Start: 01-16-2024 Comprehensive metabolic 1999 panel - Serum or Plasma MINOO HERNANDEZ Start: 01-16-2024 PROTIME-INR MINOO HERNANDEZ Start: 01-16-2024 VITAMIN D 25-HYDROXY,TOTAL MINOO HERNANDEZ Start: 12-21-2023 BI BREAST BIOPSY CLIP IMAGING KELY GARCIA Start: 12-21-2023 BI MR BREAST VACUUM ASSISTED BIOPSY MIMI CRAIN Start: 12-21-2023 SURGICAL PATHOLOGY EXAM KELY CRAIN Start: 12-21-2023 Diagnostic mammography computer-aided detcj uni Kely Crain DISTANCE EDUCATION FACULTY LIAISON-HEALTH ADMINISTRATOR Work Phone: Start: 12-21-2023 Bx breast w/device 1st lesion magnetic res guid Kely Crain DISTANCE EDUCATION FACULTY LIAISON-HEALTH ADMINISTRATOR Work Phone: Start: 12-19-2023 CBC panel - [...] 12-06-2023 BI BREAST BIOPSY CLIP IMAGING KELY GARCIACK Start: 12-06-2023 Ultrasound elastography first target lesion Kely Crain DISTANCE EDUCATION FACULTY LIAISON-HEALTH ADMINISTRATOR Work Phone: Start: 11-24-2023 BI MR BREAST BILATERAL WITH CONTRAST FULL PROTOCOL KELY CRAIN Start: 11-24-2023 Mri breast without&with contrast w/cad bilateral Kely Crain DISTANCE EDUCATION FACULTY LIAISON-HEALTH ADMINISTRATOR Work Phone: Start: 11-21-2023 BI TRANSFER OF OUTSIDE FILMS MINOO MARNITRUPTI NG Start: 11-21-2023 End: 11-21-2023 Study Interpretation of outside study Kely Crain DISTANCE EDUCATION FACULTY LIAISON-HEALTH ADMINISTRATOR Work Phone: Start: 11-07-2023 CASE REQUEST OPERATING ROOM MINOO BURDEN G Start: 10-26-2023 AMB REFERRAL TO HIGH RISK BREAST CANCER KELY CRAIN Start: 10-06-2023 ENDOSCOPIC ULTRASOUND (UPPER) MINOO RUDOLPH EMMANUEL Start: 10-06-2023 Esophagogastroduodenoscopy us scope w/adj strxrs Vance Garcia MD Work Phone: Start: 08-09-2023 MISCELLANEOUS GENETICS TEST HERMES MILLER LLO Start: 03-30-2023 End: 03-30-2023 Mammography Yas Meza MD Work Phone: Start: 01-12-2023 Colonoscopy Stj Mri Start: 03-25-2021 End: 03-25-2021 Mammography Yas Meza MD Work Phone: Start: 12-29-2020 Colonoscopy Vance Garcia MD Work Phone: Start: 12-29-2020 Colonoscopy Leandro BILL Start: 10-29-2020 Adult depression screening assessment Shwetha Pattersonacre Appendectomy Leandro BILL section Leandro BILL Tonsillectomy and adenoidectomy Leandro BILL Plan of Treatment Date Care Activity Detail Author Start: 01-12-2033 Screening for malign ant neoplasm of colon [facility] Start: 11-23-2032 DTaP/Tdap/Td Vaccine s (2 - Td or Tdap) DTaP/Tdap/Td Vaccines (2 - Td or Tdap) [facility] Start: 12-29-2030 Screening for malign ant neoplasm of colon [facility] Start: 03-30-2028 Screening for malign ant neoplasm of cervix HPV/Cotest [facility] Start: 04-18-2027 Screening for malign ant neoplasm of cervix Pap Smear [facility] Start: 09-11-2026 Screening for malign ant neoplasm of colon FIT-DNA [facility] Start: 2026 RSV patient s and/or patients aged 60+ years (1 - 1-dose 60+ series) RSV patients and/or patients aged 60+ years (1 - 1-dose 60+ series) [facility] Start: 03-26-2026 LIPID SCREEN LIPID SCREEN [facility] Start: 04-24-2025 Screening for malign ant neoplasm of breast Mammogram [facility] Start: 04-22-2025 End: 04-22-2025 Patient encounter procedure 04/22/2025 10:30 AM EDT Office Visit [facility] [address] [place] [phone] Adolfo Ramirez DO [address] [place] [address] [facility] Start: 12-18-2024 Thyroid stimulating hormone measurement TSH Level [facility] Start: 07-30-2024 End: 07-30-2024 Patient encounter procedure 07/30/2024 10:30 AM EDT Office Visit [facility] [address] [place] [address] Annette Cha NP [address] [place] [address] CHRISTI TALBERT Start: 07-09-2024 ambulatory Ambulatory Facility: [facility] Start: 06-03-2024 Influenza vaccination [facility] Start: 05-14-2024 End: 05-14-2024 Patient encounter procedure 05/14/2024 11:20 AM EDT Office Visit [facility] [address] [facility] [facility] [address] [place] [address] [place] [address] Department of [place] [address] [facility] Start: 04-24-2024 End: 04-24-2024 Patient encounter procedure [facility] Start: 04-02-2024 End: 12-24-2024 DBT Breast - bilateral BI mammo bilateral screening tomosynthesis Imaging Routine BRCA2 gene mutation positive Breast cancer screening, high risk patient Expected: 04/02/2024, Expires: 12/24/2024 [facility] Service Area Work Phone: Comment on above: Expected: 04/02/2024 , Expires: 12/24/2024 Start: 03-30-2024 Mammography MAMMOGRAM [facility] Start: 03-30-2024 Screening for malign ant neoplasm of breast Mammogram [facility] Start: 03-26-2024 DIABETES SCREEN DIABETES SCREEN [facility] Start: 02-24-2024 End: 02-24-2024 Patient encounter procedure 02/24/2024 11:10 AM EDT Office Visit [facility] [address] [facility] [address] [place] [id number] [place] [address] [address] Department of [place] [address] [facility] Start: 02-20-2024 End: 02-20-2024 Patient encounter procedure 02/20/2024 12:00 PM EDT Office Visit [facility] [address] [facility] [address] [place] [address] [place] [address] [place] [address] [facility] Start: 01-19-2024 End: 01-19-2024 Admission to same day surgery center 01/19/2024 7:15 AM EDT - 01/19/2024 10:20 AM EDT Surgery [facility] [place] [address] [place] [address] [place] [address] [place] [address] Laparoscopic Bilateral salping-oophorectomy [38579 (CPT )] [facility] [place] [place] Comment on above: Laparoscopic Bilater al salping-oophorectomy [48042 (CPT )] Start: 01-19-2024 End: 01-19-2024 Laparoscopy w/rmvl adnexal structures Salpingo Oophorectomy Laparoscopy BRCA gene mutation positive 01/19/2024 7:15 AM EDT Virtual [facility] [place] Start: 01-19-2024 Subsequent hospital visit by physician 01/19/2024 5:45 AM EDT Hospital Encounter [facility] [place] [address] [place] [address] [place] [address] [place] [address] [facility] [place] Start: 12-29-2023 End: 12-29-2023 Admission to same day surgery center 12/29/2023 7:15 AM EDT - 12/29/2023 10:25 AM EDT Surgery [facility] [place] [address] [place] [id number] [place] [address] [place], [place] [id number] Laparoscopic Bilateral salping-oophorectomy [40955 (CPT )] [facility] MOS OR Comment on above: Laparoscopic Bilater al salping-oophorectomy [73195 (CPT )] Start: 12-29-2023 End: 12-29-2023 Laparoscopy w/rmvl adnexal structures Salpingo Oophorectomy Laparoscopy BRCA gene mutation positive 12/29/2023 7:15 AM EDT Virtual [facility] MOS [place] Start: 12-29-2023 Subsequent hospital visit by physician 12/29/2023 5:45 AM EDT Hospital Encounter [facility], [place] [address] [place] [phone] [place] [address] [place] [address] [facility] MOS OR Start: 12-21-2023 End: 12-21-2023 Patient encounter procedure [facility] Start: 12-19-2023 End: 12-19-2023 Admission to establishment 12/19/2023 1:45 PM EDT Pre-Admission Testing [facility] [address] [place] [phone] [facility] Start: 12-12-2023 End: 12-12-2023 Telemedicine consultation with patient 12/12/2023 2:00 PM EDT Telemedicine Clinical Support [facility] [address] [place] [phone] [facility] Start: 12-06-2023 End: 02-04-2025 MG Breast Views BI MR breast vacuum assisted biopsy Imaging Routine Abnormal MRI, breast Mass of lower outer quadrant of right breast Expected: 12/06/2023, Expires: 02/04/2025 [facility] Service Area Work Phone: Comment on above: Expected: 12/06/2023 , Expires: 02/04/2025 Start: 12-06-2023 End: 12-06-2023 Patient encounter procedure 12/06/2023 1:45 PM EST Appointment [facility] [address] [place] [address] [facility] Start: 12-06-2023 End: 12-06-2023 Patient encounter procedure [facility] Start: 11-24-2023 End: 11-24-2023 Patient encounter procedure 11/24/2023 9:30 AM EST Appointment [address] [place] [address] [facility] Start: 11-07-2023 End: 11-07-2023 Patient encounter procedure 11/07/2023 4:00 PM EST Office Visit [facility] [address] [facility] [address] [phone] [place] [address] [place] [address] [facility] Start: 11-07-2023 End: 11-07-2024 Request for Pre-Admission Testing Visit Request for Pre-Admission Testing Visit Procedures Routine BRCA gene mutation positive Expected: 11/07/2023 (Approximate), Expires: 11/07/2024 [facility] Service Area Work Phone: Comment on above: Expected: 11/07/2023 (Approximate), Expires: 11/07/2024 Start: 10-26-2023 End: 12-24-2024 MR Breast - bilateral W contrast IV MR breast bilateral w contrast full protocol Imaging Routine BRCA2 gene mutation positive Breast cancer screening, high risk patient Expected: 10/26/2023, Expires: 12/24/2024 [facility] Work Phone: Comment on above: Expected: 10/26/2023 , Expires: 12/24/2024 Start: 10-18-2023 End: 10-18-2023 Patient encounter procedure 10/18/2023 1:00 PM EST Office Visit [address] [place] [address] Kely Crain, DISTANCE EDUCATION FACULTY LIAISON-HEALTH ADMINISTRATOR [address] [place] [address] [facility] Start: 10-06-2023 End: 10-06-2023 Patient encounter procedure 10/06/2023 2:00 PM EST Appointment [facility] [address] [place] [phone] [place] [address] [facility] [place] [address] [place] [address] [place] [address] Yulia Dorman RN [facility] Start: 10-05-2023 End: 10-05-2024 Endoscopic Ultrasound (Upper) Endoscopic Ultrasound (Upper) Endoscopy Routine 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) Expected: 10/05/2023, Expires: 10/05/2024 [facility] Service Area Work Phone: Comment on above: Expected: 10/05/2023 , Expires: 10/05/2024 Start: 10-05-2023 End: 10-05-2023 Telemedicine consultation with patient 10/05/2023 9:00 AM EST Telemedicine [facility] [address] [facility] [address]th [place] [phone] [place] [address] Department [place] [address] [facility] Start: 06-03-2023 COVID-19 Vaccine () COVID-19 Vaccine () [facility] Start: 06-03-2023 Influenza vaccination C [facility] Start: 10-03-2022 DEPRESSION ASSESSMENT DEPRESSION ASS ESSMENT [facility] Start: 06-03-2022 Influenza vaccination [facility] Start: 10-29-2021 Adult depression screening assessment DEPRESSION SCREENING [facility] Start: 07-30-2021 COVID-19 VACCINE (2 - Booster for Jarvis series) COVID-19 VACCINE (2 - Booster for Jarvis series) [facility] Start: 2016 SHINGRIX VACCINE (1 of 2) SHINGRIX VACCINE (1 of 2) [facility] Start: 2016 Zoster Vaccines (1 of 2) Zoste r Vaccines (1 of 2) [facility] Start: 2011 COLOGUARD (FIT-DNA) COLOGUARD (FIT-D NA) [facility] Start: 2011 Colonoscopy COLONOSCOPY [facility] Start: 2011 COLORECTAL CANCER SCREENING COLORECTAL CANCER SCREENING [facility] Start: [address] COLONOGRAPHY [facility] Start: 2011 FECAL OCCULT BLOOD FECAL OCCULT BLOO D [facility] Start: [address] [facility] Start: 2008 PAP TESTING PAP TESTING [facility] Start: 2006 Mammography MAMMOGRAM [facility] Start: 1996 HPV TESTING HPV TESTING [facility] Start: 1987 PAP TESTING PAP TESTING [facility] Start: 1987 Screening for malign ant neoplasm of cervix [facility] Start: 1985 Urine microalbumin profile DTAP,TDAP,TD (1 - Tdap) [facility] Start: 1984 Diabetes mellitus screening Diabetes Screening [facility] Start: 1984 Hepatitis C screening Hepatitis C Sc reening [facility] Start: 1984 HIV SCREENING HIV SCREENING [facility] Start: 1972 PNEUMOCOCCAL (1 - PCV) PNEUMOCOCCAL (1 - PCV) [facility] Start: 1972 Pneumococcal Vaccine : Pediatrics (0 to 5 Years) and At-Risk Patients (6 to 64 Years) (1 of 2 - PCV) Pneumococcal Vaccine: Pediatrics (0 to 5 Years) and At-Risk Patients (6 to 64 Years) (1 of 2 - PCV) [facility] Start: 1966 HIV screening HIV Screening [facility] Start: 1966 Lipid panel Lipid Panel [facility] Start: 1966 Screening for malign ant neoplasm of colon [facility] Start: 1966 Thyroid stimulating hormone measurement TSH Level [facility] Start: 1966 Yearly Adult Physical Yearly Adult P hysical [facility] End: 12-06-2023 MG Breast - unilateral Single view for clip placement BI breast biopsy clip imaging Imaging Routine Abnormal findings on diagnostic imaging of breast Once for 1 Occurrences starting 12/06/2023 until 12/06/2023 [facility] Service Area Work Phone: Comment on above: Once for 1 Occurrenc es starting 12/06/2023 until 12/06/2023 End: 11-24-2023 MR Breast - bilateral W contrast IV [facility] Service Area Work Phone: Comment on above: Once for 1 Occurrenc es starting 11/24/2023 until 11/24/2023 Non-gynecological cytology method study Cytology Consultation (Non-Gynecologic) Pathology and Cytology Timed BRCA gene mutation positive Release Upon Ordering for 1 Occurrences starting 01/19/2024 [facility] Service Area Work Phone: Comment on above: Release Upon Orderin g for 1 Occurrences starting 01/19/2024 Surgical pathology study [facility] Service Area Work Phone: Comment on above: Release Upon Orderin g for 1 Occurrences starting 12/21/2023, [address] [facility] Work Phone: Comment on above: Release Upon Orderin g for 1 Occurrences starting 01/19/2024, 1 completed End: 05-06-2024 Ultrasound elastography parenchyma US ELASTOGRAPHY LIVER Radiology Routine Primary biliary cholangitis (HCC) 1 Occurrences starting 2023 until 05/06/2024 [facility] Work Phone: Comment on above: 1 Occurrences starti ng 2023 until 05/06/2024 End: 05-06-2024 US ABD RIGHT UPPER QUADRANT US ABD RIGHT UPPER QUADRANT Radiology Routine Primary biliary cholangitis (HCC) 1 Occurrences starting 2023 until 05/06/2024 [facility] Work Phone: Comment on above: 1 Occurrences starti ng 2023 until 05/06/20[facility] Immunization Date Immunization Notes Care Provider Gin lechuga 11-25-2022 measles, mumps and rubella virus vaccine Reeves SALAM [facility] 11-23-2022 tetanus toxoid, reduced diphtheria toxoid, and acellular pertussis vaccine, adsorbed Reeves SALAM [facility] 06-04-2021 COVID-19 vaccine, vector-nr, [id number], PF, 0.5 mL Reeves SALAM [facility] 03-14-2014 hepatitis A vaccine, adult dosage Reeves SALAM [facility] 03-14-2014 hepatitis B vaccine, adult dosage Reeves SALAM [facility] 11-12-2013 hepatitis B vaccine, adult dosage Reeves SALAM [facility] 09-06-2013 hepatitis A vaccine, adult dosage Reeves SALAM [facility] 09-06-2013 hepatitis B vaccine, adult dosage Reeves SALAM [facility] 08-08-2010 influenza virus vaccine, unspecified formulation [facility] Work Phone: NEGATED: Highlighted row has not occurred!11-07-2023 influenza virus vaccine, unspecified formulation Vitaly Chisholmi [facility] NEGATED: Highlighted row has not occurred!05-13-2022 influenza virus vaccine, unspecified formulation Reeves SALAM [facility] NEGATED: Highlighted row has not occurred!09-15-2021 influenza virus vaccine, unspecified formulation Reeves SALAM [facility] Payers Date Payer Category Payer Unknown [facility]ILL [facility] [id number] 2021-Present [phone] [address] [place] [address] Indemnity [id number] 2021 Unknown [id number] 1.13.159.2.7.3 .[id number] 2021 Unknown [id number] 1966 Unknown [id number] 2.16.840.1.535485.3.579.2.593 1966 Unknown [id number] 2.16.840.1.750555.3.579.2.593 1966 Unknown [id number] 2.16.840.1.390613.3.579.2.593 1966 Unknown [id number] 2.16.840.1.345397.3.579.2.593 1966 Unknown [id number] 2.16.840.1.233389.3.579.2.593 1966 Unknown [id number] 2.16.840.1.993388.3.579.2.593 1966 Unknown [id number] 2.16.840.1.534032.3.579.2.593 1966 Unknown [id number] 2.16.840.1.690937.3.579.2.124 4 1966 Unknown [id number] 2.16.840.1.850554.3.579.2.124 4 1966 Unknown [id number] 2.16.840.1.348157.3.579.2.124 4 1966 Unknown [id number] 2.16.840.1.833539.3.579.2.125 9 1966 Unknown [id number] 2.16.840.1.662952.3.579.2.125 9 1966 Unknown [id number] 2.16.840.1.555777.3.579.2.125 9 1966 Unknown [id number] 2.16.840.1.290435.3.579.2.125 9 1966 Unknown [id number] 2.16.840.1.400860.3.579.2.124 3 1966 Unknown [id number] 2.16.840.1.883811.3.579.2.124 3 1966 Unknown [id number] 2.16.840.1.023795.3.579.2.124 3 1966 Unknown [id number] 2.16.840.1.521119.3.579.2.124 3 1966 Unknown [id number] 2.16.840.1.384903.3.579.2.124 3 1966 Unknown [id number] 2.16.840.1.634996.3.579.2.124 3 1966 Unknown [id number] 2.16.840.1.112740.3.579.2.124 3 1966 Unknown [id number] 2.16.840.1.268982.3.579.2.124 3 1966 Unknown [id number] 2.16.840.1.285684.3.579.2.124 3 1966 Unknown [id number] 2.16.840.1.328817.3.579.2.124 3 1966 Unknown [id number] 2.16.840.1.104753.3.579.2.727 1966 Unknown [id number] 2.16.840.1.133455.3.579.2.727 1966 Unknown [id number] 2.16.840.1.061436.3.579.2.727 1966 Unknown [id number] 2.16.840.1.586502.3.579.2.727 1966 Unknown [id number] 2.16.840.1.762811.3.579.2.727 1966 Unknown [id number] 2.16.840.1.298293.3.579.2.727 1966 Unknown [id number] 2.16.840.1.549578.3.579.2.124 5 1966 Unknown [id number] 2.16.840.1.369798.3.579.2.124 5 1966 Unknown [id number] 2.16.840.1.710765.3.579.2.124 5 1966 Unknown [id number] 2.16.840.1.821095.3.579.2.124 5 1966 Unknown [id number] 2.16.840.1.617266.3.579.2.124 5 1966 Unknown [id number] 2.16.840.1.088841.3.579.2.124 5 1966 Unknown [id number] 2.16.840.1.851959.3.579.2.124 5 1966 Unknown [id number] 2.16.840.1.321431.3.579.2.124 5 1966 Unknown [id number] 2.16.840.1.285198.3.579.2.124 5 1966 Unknown [id number] 2.16.840.1.067001.3.579.2.124 5 1966 Unknown [id number] 2.16.840.1.794185.3.579.2.124 5 1966 Unknown [id number] 2.16.840.1.487110.3.579.2.124 5 1966 Unknown [id number] 2.16.840.1.929777.3.579.2.124 5 1966 Unknown [id number] 2.16.840.1.989860.3.579.2.124 5 1966 Unknown [id number] 2.16.840.1.802849.3.579.2.124 5 Social History Date Type Detail Facility Start: 05-13-2022 End: 03-30-2023 Tobacco smoking status NHIS Never smoked tobacco [facility] Start: 01-21-2021 Alcohol intake Current non-dr manager rn case of alcohol (finding) [facility] Start: 1965 Sex Assigned At Not on file C [facility] Tobacco smoking status Never [facility] Start: 04-06-2023 End: 04-18-2024 Sex Assigned At Female [facility] Start: 11-13-2019 End: 03-30-2023 Tobacco use and exposure Smokeless tobacco non-user [facility] Start: 04-06-2023 End: 04-18-2024 History of Social function [facility] Start: 09-21-2023 End: 02-24-2024 Alcohol intake Lifetime non-drinker (finding) [facility] Work Phone: Start: 09-08-2023 Sexual orientation Heterosexual (fin eugenio) [facility] Work Phone: Start: 09-11-2023 End: 02-24-2024 Exposure to SARS-CoV-2 (event) Not sure [facility] Start: 04-23-2024 Alcoholic beverage intake Ex-drinker (finding) [facility] How often to you hav e a drink containing alcohol? Never [facility] Start: 2023 Alcohol Comment Caffeine intak e: occasional [facility] NEGATED: Highlighted rowStart: BRITTANEY History of tobacco use Passive smoker [facility] Work Phone: Functional Status Date Assessment Result Facility 01-18-2024 Functional Status N/A [facility] 11-14-2023 Functional Status N/A [facility] 05-12-2023 Functional Status N/A [facility] 01-12-2023 Functional Status N/A [facility] 05-13-2022 Functional Status N/A [facility] Clinical Notes 03-02-2022 to 04-26-2024 Ruth Perez MD - 02/24/2024 11:10 AM Joe Hernandez MD - 02/20/2024 12:00 PM Joe Hernandez MD - 01/18/2024 5:04 PM Joe Hernandez MD - 01/18/2024 5:04 PM EDTPatient Instructions Note Date & Type Note Facility 04-26-2024 Note Patient Education Obstetrics and Gynecology Health Maintenance, Female Adopting a healthy lifestyle and getting preventive care are important in promoting health and wellness. Ask your health care provider about: ? The right schedule for you to have regular tests and exams. ? Things you can do on your own to prevent diseases and keep yourself healthy. What should I know about diet, weight, and exercise? Eat a healthy diet ? Eat a diet that includes plenty of vegetables, fruits, low-fat dairy products, and lean protein. ? Do not eat a lot of foods that are high in solid fats, added sugars, or sodium. Maintain a healthy weight Body mass index (BMI) is used to identify weight problems. It estimates body fat based on height and weight. Your health care provider can help determine your BMI and help you achieve or maintain a healthy weight. Get regular exercise Get regular exercise. This is one of the most important things you can do for your health. Most adults should: ? Exercise for at least 150 minutes each week. The exercise should increase your heart rate and make you sweat (moderate-intensity exercise). ? Do strengthening exercises at least twice a week. This is in addition to the moderate-intensity exercise. ? Spend less time sitting. Even light physical activity can be beneficial. Watch cholesterol and blood lipids Have your blood tested for lipids and cholesterol at 20 years of age, then have this test every 5 years. Have your cholesterol levels checked more often if: ? Your lipid or cholesterol levels are high. ? You are older than 40 years of age. ? You are at high risk for heart disease. What should I know about cancer screening? Depending on your health history and family history, you may need to have cancer screening at various ages. This may include screening for: ? Breast cancer. ? Cervical cancer. ? Colorectal cancer. ? Skin cancer. ? Lung cancer. What should I know about heart disease, diabetes, and high blood pressure? Blood pressure and heart disease ? High blood pressure causes heart disease and increases the risk of stroke. This is more likely to develop in people who have high blood pressure readings or are overweight. ? Have your blood pressure checked: ? Every 3?5 years if you are 18?39 years of age. ? Every year if you are 40 years old or older. Diabetes Have regular diabetes screenings. This checks your fasting blood sugar level. Have the screening done: ? Once every three years after age 40 if you are at a normal weight and have a low risk for diabetes. ? More often and at a younger age if you are overweight or have a high risk for diabetes. What should I know about preventing infection? Hepatitis B If you have a higher risk for hepatitis B, you should be screened for this virus. Talk with your health care provider to find out if you are at risk for hepatitis B infection. Hepatitis C Testing is recommended for: ? Everyone born from 1945 through 1965. ? Anyone with known risk factors for hepatitis C. Sexually transmitted infections (STIs) ? Get screened for STIs, including gonorrhea and chlamydia, if: ? You are sexually active and are younger than 24 years of age. ? You are older than 24 years of age and your health care provider tells you that you are at risk for this type of infection. ? Your sexual activity has changed since you were last screened, and you are at increased risk for chlamydia or gonorrhea. Ask your health care provider if you are at risk. ? Ask your health care provider about whether you are at high risk for HIV. Your health care provider may recommend a prescription medicine to help prevent HIV infection. If you choose to take medicine to prevent HIV, you should first get tested for HIV. You should then be tested every 3 months for as long as you are taking the medicine. ? If you are about to stop having your period (premenopausal) and you may become , seek counseling before you get . ? Take 400 to 800 micrograms (mcg) of folic acid every day if you become . ? Ask for control (contraception) if you want to prevent . Osteoporosis and menopause Osteoporosis is a disease in which the bones lose minerals and strength with aging. This can result in bone fractures. If you are 65 years old or older, or if you are at risk for osteoporosis and fractures, ask your health care provider if you should: ? Be screened for bone loss. ? Take a calcium or vitamin D supplement to lower your risk of fractures. ? Be given hormone replacement therapy (HRT) to treat symptoms of menopause. Follow these instructions at home: Alcohol use ? Do not drink alcohol if: ? Your health care provider tells you not to drink. ? You are , may be , or are planning to become . ? If you drink alcohol: ? Limit how much you have to: ? 0?1 drink a day. ? Know how (more content not included)... [facility] 02-24-2024 History of Present illness Narrative Ms. [...] mentioned that she was seen by her sack repairer for her hair loss, Workup was suspicious [...] in the note. documented in this encounter [facility] Work Phone: 02-20-2024 History of Present [...] No hx of OCPs , Dr. Almeida MANAGER CRITICAL CARE in [facility] up to date. Family History: -Cousin with [id number] mutation. -Maternal aunt with BRCA2 pathogenic mutation [...] age, at 68. -Paternal cousin with cancer [id number]-usccarnyd at unknown age. -Two paternal cousins once removed with brain cancer, at 27 and 25 respectively. -Paternal grandmother of ovarian cancer at unknown age. -Two paternal great aunt with cancer dyq-[id number]-pfovvqhpw at unknown age. Interval Doing well post [...] continue well woman care with her primary claims customer service representative. I will see her back as needed. documented in this encounter [facility] Work Phone: 01-18-2024 History and physical [...] No hx of OCPs , Dr. Almeida MANAGER CRITICAL CARE in [facility] up to date. Oncology History [...] discussed with Dr. Mary Omer MD PGY-2 [facility] Work Phone: 01-18-2024 History and physical note History Of Present Illness Nihtya De Dios is a 58 y.o. female [...] No hx of OCPs , Dr. Almeida MANAGER CRITICAL CARE in [facility] up to date. Oncology History [...] Omer MD PGY-2 documented in this encounter [facility] Work Phone: 01-18-2024 Hospital Note Formatting of t his note might be different from the original. [X] POV w/Dr. Hernandez February 19 @ 12:00 ST 58 year old female with newly diagnosed [...] 13 No hx of OCPs , Dr. Juan Pablo MARTIN in [facility] up to date. [facility] Work Phone: 01-18-2024 Miscellaneous Notes [X] POV w/Dr. Hernandez February 19 @ 12:00 [facility] 58 year old female with newly [...] 13 No hx of OCPs , Dr. Juan Pablo MARTIN in [facility] up to date. documented in this encounter [facility] Work Phone: 12-06-2023 History of Present illness Narrative Nithya De Dios female 1965 58 y.o. [id number] Chief Complaint Biopsy consultation, abnormal MRI History [...] directed ultrasound and biopsy as indicated. 03/30/2023 [facility], Bilateral screening mammogram, indicates BI-RADS Category [...] LIMITED RIGHT; 12/06/2023 1:04 pm ACCESSION NUMBER(S): [id number] ORDERING CLINICIAN: KELY CRAIN INDICATION: MRI directed ultrasound of an enhancing right breast mass. BRCA 2 gene mutation. Family history of breast cancer. COMPARISON: Correlation with breast MRI 11/24/2023 and mammogram 03/30/2023. FINDINGS: A targeted ultrasound of the entire lower outer right breast was performed by a registered sign painter helper and Dr. Garett Quevedo using elastography. An [...] FULL PROTOCOL; 11/24/2023 10:13 am ACCESSION NUMBER(S): [id number] ORDERING CLINICIAN: KELY CRAIN INDICATION: High-risk supplemental [...] independent workstation, 3-D images were formulated using [employer] including time enhancement curves, subtraction images and [...] dictation regarding these critical findings using the Pict notification system. A pre-procedure form was filled [...] call. If you receive medical information from [facility], it is possible to [...] health record. To sign up go to [email or web address]. If you need assistance with signing up or trouble getting into your account call [facility] Patient Line 24 at [phone]. Should you have any questions or concerns after biopsy, please do not hesitate to call my office at [phone]. If it has been more than a week since your biopsy was performed and you have not received results, please call my office at [phone]. Thank you for choosing [facility] and trusting me as your healthcare provider. I am honored to be a provider on your health care team and I remain dedicated to helping you achieve your health goals. IBIS Solomon documented in this encounter [facility] Work Phone: 12-06-2023 Instructions IBIS Solomon [...] call. If you receive medical information from [facility], it is possible to [...] health record. To sign up go to [email or web address]. If you need assistance with signing up or trouble getting into your account call MyChart Patient Line 25/04 at [phone]. Should you have any questions or concerns after biopsy, please do not hesitate to call my office at [phone]. If it has been more than a week since your biopsy was performed and you have not received results, please call my office at [phone]. Thank you for choosing [facility] and trusting me as your healthcare provider. I am honored to be a provider on your health care team and I remain dedicated to helping you achieve your health goals. documented in this encounter [facility] Work Phone: 11-25-2023 Note 1. Indeterminate rig ht breast mass. Surgical consultation, MRI directed ultrasound and possible biopsy is recommended. If there is no sonographic correlate, an MRI guided biopsy is recommended. A message was sent to the referring practitioner at the time of this dictation regarding these critical findings using the Pict notification system. A pre-procedure form was filled out. 2. No MRI evidence of malignancy in the left breast. Method of Detection: Category Smri - Screening MRI BI-RADS CATEGORY: BI-RADS Category: 4 Suspicious. Recommendation: Surgical Consultation and Biopsy. Recommended Date: Immediate. Laterality: Right. For any future breast imaging appointments, please call [phone] ([phone]). MACRO: Critical Finding: Breast Imaging Abnormality. Notification was initiated on 11/25/2023 at 1:43 pm by Garett Quevedo. (-YCF-) Instructions: Surgical Consultation and Imaging Guided Biopsy. Signed by: Lia Bunch 11/25/2023 2:02 PM Dictation workstation: [id number] 11-07-2023 History of Present illness Narrative Patient [...] No hx of OCPs , Dr. Almeida MANAGER CRITICAL CARE in [facility] up to date. Family History: -Cousin with YSGW3zywpgoeugy mutation. -Maternal aunt with BRCA2 pathogenic mutation [...] age, at 68. -Paternal cousin with cancer scb-nsptqkhhj-twubrweki at unknown age. -Two paternal cousins once removed with brain cancer, at 27 and 25 respectively. -Paternal grandmother of ovarian cancer at unknown age. -Two paternal great aunt with cancer oeb-ysfxjoiku-tptyskejw at unknown age. Objective BSA: 1.93 meters [...] -Will send for PAT -Schedule laparoscopic BSO, [facility] -Consent signed Aurelio Resendiz MD Seen with Dr. Hernandez documented in this encounter [facility] Work Phone: 10-26-2023 History of Present illness Narrative Nithya De Dios female 1965 58 y.o. [id number] Chief Complaint High risk evaluation History Of [...] Cholangitis). She follows with Gastroenterology. BREAST IMAGIN03/30/2023 [facility], Bilateral screening mammogram, indicates BI-RADS Category [...] IS VERY IMPORTANT TO YOUR HEALTH. THE [employer] GUIDELINES RECOMMEND THAT WOMEN 40 [...] health record. To sign up go to [email or web address]. If you need assistance with signing up or trouble getting into your account call [employer] Patient Line 25/04 at [phone]. My office phone number is [phone] if you need to get in touch with me or have additional questions or concerns. Thank you for choosing [facility] and trusting me as your healthcare provider. I look forward to seeing you again at your next office visit. I am honored to be a provider on your health care team and I remain dedicated to helping you achieve your health goals. IBIS Solomon documented in this encounter [facility] Work Phone: 10-26-2023 Instructions IBIS Solomon [...] health record. To sign up go to [email or web address]. If you need assistance with signing up or trouble getting into your account call [employer] Patient Line 25/04 at [phone]. My office phone number is [phone] if you need to get in touch with me or have additional questions or concerns. Thank you for choosing [facility] and trusting me as your healthcare provider. I look forward to seeing you again at your next office visit. I am honored to be a provider on your health care team and I remain dedicated to helping you achieve your health goals. documented in this encounter [facility] Work Phone: 10-06-2023 Attending History and physical note H&P reviewed. The patient was examined and there are no changes to the H&P. Source Note - Vance Garcia MD - 10/05/2023 9:00 AM EST BRCA2 [...] schedule for EUS. Total time 22 minutes. [facility] Work Phone: 10-06-2023 History and physical note H&P reviewed. The patient was examined and there are no changes to the H&P. Source Note - Vance Garcia MD - 10/05/2023 9:00 AM EST BRCA2 [...] time 22 minutes. documented in this encounter [facility] Work Phone: 10-05-2023 History of Present [...] time 22 minutes. documented in this encounter [facility] Work Phone: 09-21-2023 History of Present [...] No hx of OCPs , Dr. Almeida MANAGER CRITICAL CARE in [facility] up to date. Family History: -Cousin with CGLY2fwzfntehav mutation. -Maternal aunt with BRCA2 pathogenic mutation [...] age, at 68. -Paternal cousin with cancer ykb-mdhbfnlhl-bjrxsgqgb at unknown age. -Two paternal cousins once removed with brain cancer, at 27 and 25 respectively. -Paternal grandmother of ovarian cancer at unknown age. -Two paternal great aunt with cancer umy-qyqsajmga-lnoqvqqjf at unknown age. Objective Visit Vitals BP [...] and then surgery. documented in this encounter [facility] Work Phone: 05-06-2023 Miscellaneous Notes Fibroscan w Ekpa 4.8 Us stable Pt sent the following MCM regarding US and fibroscan results: I didn t see these results in my chart for the [facility], so I am sending them. Can you see that Dr. Mandeep Martin sees these? Pt uploaded images of results under scanned docs. Results not viewable in Care Everywhere at this time. See scanned docs for results review. Annette Molina RN May 05, 2023 12:16 PM documented in this encounter [facility] 2023 Miscellaneous Notes Pt notified via [...] 2023 10:17 AM documented in this encounter [facility] 04-06-2023 Note HNO ID: [id number] Author: Yas Meza MD Service: ? Author Type: Physician Type: Progress Notes Filed: 04/10/2023 8:40 AM Note Text: VIRTUAL VISIT PROGRESS NOTE This is a virtual visit using [employer] video visit. It required patient-provider interaction for the medical decision making as documented below. I have communicated my name and active licensure. The patient's identity and physical location were verified at the time of this visit. Either the patient or their legal retention representative has been informed of the risks and benefits of -- and alternatives to -- treatment through a remote evaluation and consents to proceed with the evaluation remotely. 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, after initial evaluation for persistent pruritus but nl liver enzymes -s/p liver biopsy done at [facility] 07/06/2013 w early stage disease Restarted on [...] 09/2019 -s/p T+A -s/p appy age 18 -D1G3-9-5-8, s/p CS x 1 -h/o hypothyroidism -h/o osteopenia -h/o pre-diabetes Since last seen -labs done 03/28/23 at [facility] Ast 32 Alt 58 Alkphos 150 Alb 3.5 T bili 0.3 -s/p mammogram done - wnl -s/p BMD done last at [facility] - told osteopenia, but no worse -weight stable ~ 175#, 5'2 (BMI 31.1) -continuing on malathi (1250 mg/d , equivalent to 15.7596034263 mg/kg/d) along w fenofibrate, ocaliva (2.5) - worried about increasing itching -had fibroscan done at [facility] ~ 1 -2 yrs HISTORY REVIEWED (electronic [...] early stage fibrosis if any; repeated at [facility] (?results) Last BMD done at [facility] 12/2019 -> osteropenia (unchanged) Still w mildly elevated alk phos on labs; concerned re risk of pruritus if increased dose of ocaliva vs loose stools Long discussion today regarding issues and options PLAN: Suggested: 1. PBC -continue malathi dose (1250 mg/d ) - Continue fenofibrate at current dose -continue current dose of ocaliva -repeat VCTE (vs ARFII) at [facility]; if no change in Ekpa, would hold off on making any dose changes, but if suggestion of worsening,would have a low threshold to incr dose -serial labs -BMD locally per protocol Follow-up on the phone RTC ~1 yr Yas Meza MD [facility] 04-06-2023 History of Present illness Narrative VIRTUAL VISIT PROGRESS NOTE This is a virtual visit using [employer] video visit. It required patient-provider interaction for the medical decision making as documented below. I have communicated my name and active licensure. The patient's identity and physical location were verified at the time of this visit. Either the patient or their legal retention representative has been informed of the risks and benefits of -- and alternatives to -- treatment through a remote evaluation and consents to proceed with the evaluation remotely. 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, after initial evaluation for persistent pruritus but nl liver enzymes -s/p liver biopsy done at [facility] 07/06/2013 w early stage disease Restarted on [...] 09/2019 -s/p T+A -s/p appy age 18 -L1H8-5-5-8, s/p CS x 1 -h/o hypothyroidism -h/o osteopenia -h/o pre-diabetes Since last seen -labs done 03/28/23 at [facility] Ast 32 Alt 58 Alkphos 150 Alb 3.5 T bili 0.3 -s/p mammogram done - wnl -s/p BMD done last at [facility] - told osteopenia, but no worse -weight stable ~ 175#, 5'2 (BMI 31.1) -continuing on malathi (1250 mg/d , equivalent to 15.2013370001 mg/kg/d) along w fenofibrate, ocaliva (2.5) - worried about increasing itching -had fibroscan done at [facility] ~ 1 -2 yrs HISTORY REVIEWED (electronic [...] early stage fibrosis if any; repeated at [facility] (?results) Last BMD done at [facility] 12/2019 -> osteropenia (unchanged) Still w mildly elevated alk phos on labs; concerned re risk of pruritus if increased dose of ocaliva vs loose stools Long discussion today regarding issues and options PLAN: Suggested: 1. PBC -continue malathi dose (1250 mg/d ) - Continue fenofibrate at current dose -continue current dose of ocaliva -repeat VCTE (vs ARFII) at [facility]; if no change in Ekpa, would hold off on making any dose changes, but if suggestion of worsening,would have a low threshold to incr dose -serial labs -BMD locally per protocol Follow-up on the phone RTC ~1 yr Yas Meza MD documented in this encounter [facility] 01-12-2023 Hospital Discharge instructions Follow Up Care 01/12/2023 11:12:44 With:Eh URIAS, JEFFREY Blandon, [facility] Address: [address] [place] [address], [address] [phone] [phone] When:3 months [facility] 01-04-2023 Miscellaneous Notes Received the following [employer] message: Dr. Paradise Martin wanted to see lab results in 4 months Constanza Corona RN January 04, 2023 3:18 PM documented in this encounter [facility] 10-11-2022 Note HNO ID: [id number] Author: Yas Meza MD Service: ? Author Type: Physician Type: Progress Notes Filed: 10/15/2022 4:52 PM Note Text: VIRTUAL VISIT PROGRESS NOTE This is a virtual visit using [employer] video visit. It required patient-provider interaction for the medical decision making as documented below. 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, after initial evaluation for persistent pruritus but nl liver enzymes -s/p liver biopsy done at [facility] 07/06/2013 w early stage disease Restarted on [...] 09/2019 -s/p T+A -s/p appy age 18 -N0N8-8-2-5, s/p CS x 1 -h/o hypothyroidism -h/o osteopenia -h/o pre-diabetes Since last seen -labs done 09/22 at [facility] Ast 30 Alt 53 Alkphos 153 Alb 3.6 -weight still uptrending - now ~176 lbs/ 80kg -continuing on malathi (12.7882179321 mg/kg/d, given wgt =176), fenofibrate, ocaliva (2.5) [...] prob early stage fibrosis BMD done at [facility] 12/2019 -> osteropenia Mildly elevated alk phos [...] labs RTC ~6 months Yas Meza MD [facility] 10-11-2022 History of Present illness Narrative VIRTUAL VISIT PROGRESS NOTE This is a virtual visit using [employer] video visit. It required patient-provider interaction for the medical decision making as documented below. 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, after initial evaluation for persistent pruritus but nl liver enzymes -s/p liver biopsy done at [facility] 07/06/2013 w early stage disease Restarted on malatih after liver bx, given elevated LFts (1500 [...] 09/2019 -s/p T+A -s/p appy age 18 -S6R4-7-3-6, s/p CS x 1 -h/o hypothyroidism -h/o osteopenia -h/o pre-diabetes Since last seen -labs done 09/22 at [facility] Ast 30 Alt 53 Alkphos 153 Alb 3.6 -weight still uptrending - now ~176 lbs/ 80kg -continuing on malathi (12.8212221405 mg/kg/d, given wgt =176), fenofibrate, ocaliva (2.5) [...] prob early stage fibrosis BMD done at [facility] 12/2019 -> osteropenia Mildly elevated alk phos [...] Yas Meza MD documented in this encounter [facility] 05-13-2022 Evaluation + Plan note Diagnostic Tests PendingCBC w/ Auto Diff 05/13/22Comprehensive Metabolic Panel 05/13/22 [facility] 03-03-2022 History of Present illness Narrative VIRTUAL VISIT PROGRESS NOTE This is a virtual visit using [employer] video visit. It required patient-provider interaction for the medical decision making as documented below. Nithya De Dios is a 56 year old female seen for followup of PBC, diagnosed ~12/2005, after initial evaluation for persistent pruritus but nl liver enzymes -s/p liver biopsy done at [facility] 07/06/2013 w early stage disease Restarted on [...] 09/2019 -s/p T+A -s/p appy age 18 -N0U2-4-5-1, s/p CS x 1 -h/o hypothyroidism -h/o osteopenia Since last seen -recent labs done done at [facility] 02/18/202209/2021 AST 46 35 ALT 85 [...] early stage fibrosis Last BMD done at [facility] 12/2019 -> osteropenia Mildly elevated liver enzymes [...] Yas Meza MD documented in this encounter [facility] 03-02-2022 Miscellaneous Notes Called Nithya De Dios to remind them of an appointment with Dr. Meza on 03/03/22. Spoke with patient. Appointment confirmed. documented in this encounter [facility] Evaluation + Plan note Future Appointments Appointment Date:01/18/2024 10:45:00 AM Scheduled Provider:Leandro BILL MD Location:[facility] Appointment Type:BADH Follow Up Future Scheduled TestsVitamin D 25 Hydroxy 4CBC w/ Auto Diff 01/12/23Hepatic Function Panel 01/12/23BD Bone Density DEXA Peripheral Study 01/12/23 [facility] Evaluation + Plan note Future Appointments Appointment Date:01/18/2024 10:45:00 AM Scheduled Provider:Leandro BILL MD Location:[facility] Appointment Type:BADH Follow Up Future Scheduled TestsVitamin D 25 Hydroxy 4CBC w/ Auto Diff 01/12/23Hepatic Function Panel 01/12/23BD Bone Density DEXA Peripheral Study 03/04/23 [facility] Evaluation + Plan note Future Appointments Appointment Date:11/14/2023 10:00:00 AM Scheduled Provider:Vitaly Stauffer MD Location:[facility] Appointment Type:BADH Follow Up Appointment Date:01/18/2024 10:45:00 AM Scheduled Provider:Leandro BILL MD Location:[facility] Appointment Type:BADH Follow Up Future Scheduled TestsVitamin D 25 Hydroxy 01/12/23CBC w/ Auto Diff 01/12/23Hepatic Function Panel 01/12/23BD Bone Density DEXA Peripheral Study 03/04/23 [facility] Evaluation + Plan note Future Appointments Appointment Date:01/18/2024 11:00:00 AM Scheduled Provider:Vitaly Stauffer MD Location:[facility] Appointment Type:BADH Follow Up Future Scheduled TestsVitamin D 25 Hydroxy 423CBC w/ Auto Diff 01/12/23Hepatic Function Panel 01/12/23BD Bone Density DEXA Peripheral Study 03/04/23 [facility] Evaluation + Plan note Future Appointments Appointment Date:04/18/2024 10:15:00 AM Scheduled Provider:Vitaly Stauffer MD Location:[facility] Appointment Type:BADH Follow Up Future Scheduled TestsCBC w/ Auto Diff 01/18/24Comprehensive Metabolic Panel 01/18/24BD Bone Density DEXA Peripheral Study 03/04/23 [facility] Evaluation + Plan note Future Appointments Appointment Date:07/09/2024 10:15:00 AM Scheduled Provider:Vitaly Stauffer MD Location:[facility] Appointment Type:BAD Follow Up Future Scheduled TestsCBC w/ Auto Diff 01/18/24Comprehensive Metabolic Panel 01/18/24 [facility] Evaluation note Diagnosis Primary biliary cholangitis (HCC) [facility] Diagnosis Primary biliary cholangitis (HCC)- Primary documented in this encounter [facility] note* Diagnosis Primary biliary cholangitis (HCC)- Primary documented in this encounter [facility] note* Diagnosis Primary biliary cholangitis (HCC)- Primary documented in this encounter [facility] note* Diagnosis BRCA positive- Primary Genetic susceptibility to malignant neoplasm of breast documented in this encounter [facility] Work Phone: Evaluation note* Diagnosis BRCA positive- Primary 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) documented in this encounter [facility] Work Phone: Evaluation note* Diagnosis BRCA positive 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) documented in this encounter [facility] Work Phone: Evaluation note* Diagnosis Breast cancer screening, high risk patient- Primary Screening mammogram for high-risk patient BRCA2 gene mutation positive documented in this encounter [facility] Work Phone: Evaluation note* Diagnosis BRCA gene mutation positive- Primary BRCA positive Genetic susceptibility to malignant neoplasm of breast BRCA gene mutation positive- Primary BRCA gene mutation positive documented in this encounter [facility] Work Phone: Evaluation note* Diagnosis BRCA gene mutation positive- Primary BRCA2 gene mutation positive Breast cancer screening, high risk patient Screening mammogram for high-risk patient BRCA gene mutation positive documented in this encounter [facility] Work Phone: [phone] note* Diagnosis BRCA gene mutation positive- Primary BRCA2 gene mutation positive Breast cancer screening, high risk patient Screening mammogram for high-risk patient BRCA gene mutation positive documented in this encounter [facility] Work Phone: [phone] note* Diagnosis BRCA gene mutation positive- Primary Abnormal MRI, breast- Primary Mass of lower outer quadrant of right breast Situational anxiety BRCA gene mutation positive documented in this encounter [facility] Work Phone: [phone] note* Diagnosis BRCA gene mutation positive- Primary Abnormal findings on diagnostic imaging of breast Other (abnormal) findings on radiological examination of breast BRCA gene mutation positive documented in this encounter [facility] Work Phone: [phone] note* Diagnosis BRCA gene mutation positive- Primary Abnormal MRI Other nonspecific (abnormal) findings on radiological and other examinations of body structure BRCA gene mutation positive documented in this encounter [facility] Work Phone: [phone] note* Diagnosis BRCA gene mutation positive- Primary Abnormal MRI Other nonspecific (abnormal) findings on radiological and other examinations of body structure BRCA gene mutation positive documented in this encounter [facility] Work Phone: [phone] note* Diagnosis BRCA gene mutation positive- Primary Abnormal MRI, breast Mass of lower outer quadrant of right breast BRCA gene mutation positive documented in this encounter [facility] Work Phone: [phone] note* Diagnosis BRCA gene mutation positive- Primary Abnormal mammogram Abnormal mammogram, unspecified BRCA gene mutation positive documented in this encounter [facility] Work Phone: [phone] note* Diagnosis BRCA gene mutation positive- Primary BRCA gene mutation positive Postoperative pain Other acute postoperative pain documented in this encounter [facility] Work Phone: [phone] note* Diagnosis BRCA positive- Primary Genetic susceptibility to malignant neoplasm of breast documented in this encounter [facility] Work Phone: [phone] note* Diagnosis Hypothyroidism, unspecified type- Primary Vitamin D deficiency documented in this encounter [facility] Work Phone: Evaluation note* Diagnosis Avitaminosis D- Primary Unspecified vitamin D deficiency [facility] Narr[facility] No data available for this section [facility] Hospital Discharge instructions No data available for this section [facility] Progress note No data available for this section [facility] Reason for referral (narrative)* Diagnostic Procedure Only (Routine) - Pending Review Specialty Diagnoses / Procedures Referred By Rosaura gonzalez Referred To Contact US IMAGING Diagnoses Primary biliary cholangitis (HCC) Procedures US ELASTOGRAPHY LIVER ULTRASOUND ELASTOGRAPHY PARENCHYMA Yas Meza MD [address] [place] [address] Us Imaging Referral ID Status Reason Start Date Expiration Date Visits Requested Visits Authorized [id number] Pending Review Auto-Generat ed Referral 2023 05/06/2024 1 1 * Diagnostic Procedure Only (Routine) - Pending Review Specialty Diagnoses / Procedures Referred By Rosaura gonzalez Referred To Contact US IMAGING Diagnoses Primary biliary cholangitis (HCC) Procedures US ABD RIGHT UPPER QUADRANT US ABDOMINAL REAL TIME W/IMAGE LIMITED Yas Meza MD [address] [place] [address] Us Imaging Referral ID Status Reason Start Date Expiration Date Visits Requested Visits Authorized [id number] Pending Review Auto-Generat ed Referral 2023 05/06/2024 1 1 [facility] for referral (narrative) , with dr. roz ryan at for PBC Referred by: Eh URIAS, Vitaly Hernandes [facility] Summary Purpose Family History No Family History Records FoundNo Family History Records FoundNo Family History Records Found No data available for this section No data available for this section No [...] BI breast biopsy clip imaging Kely Crain, [employer] LIAISON-HEALTH ADMINISTRATOR [address] [place] [address] Referral ID Status Reason Start Date Expiration Date Visits Requested Visits Authorized [id number] Authorized Perform Procedure 12/06/2023 12/05/2024 1 1 Specialty Diagnoses / Procedures Referred By Contac t Referred To Contact Radiology Diagnoses Abnormal MRI Procedures BI US breast limited right Kely Crain DISTANCE EDUCATION FACULTY LIAISON-HEALTH ADMINISTRATOR [address] [place] [address] Referral ID Status Reason Start Date Expiration Date Visits Requested Visits Authorized [id number] Authorized Perform Procedure 11/25/2023 11/24/2024 1 1 Specialty Diagnoses / Procedures Referred By Contac t Referred To Contact Radiology Diagnoses Abnormal findings on diagnostic imaging of breast Procedures BI breast biopsy clip imaging Kely Crain DISTANCE EDUCATION FACULTY LIAISON-HEALTH ADMINISTRATOR [address] [place] [address] Referral ID Status Reason Start Date Expiration Date Visits Requested Visits Authorized [id number] Authorized Perform Procedure 11/25/2023 11/24/2024 1 1 Specialty Diagnoses / Procedures Referred By Contac t Referred To Contact Radiology Diagnoses Abnormal MRI, breast Mass of lower outer quadrant of right breast Procedures BI MR breast vacuum assisted biopsy Kely Crain DISTANCE EDUCATION FACULTY LIAISON-HEALTH ADMINISTRATOR [address] [place] [address] Referral ID Status Reason Start Date Expiration Date Visits Requested Visits Authorized [id number] Authorized Perform Procedure 12/06/2023 12/05/2024 1 1 Specialty Diagnoses / Procedures Referred By Contac t Referred To Contact Radiology Diagnoses BRCA2 gene mutation positive Breast cancer screening, high risk patient Procedures MR breast bilateral w contrast full protocol Paras Kely Mariam, DISTANCE EDUCATION FACULTY LIAISON-HEALTH ADMINISTRATOR [address] [facility] [address] [place] [address] Referral ID Status Reason Start Date Expiration Date Visits Requested Visits Authorized [id number] Pending Review Perform Procedure 10/26/2023 10/25/2024 1 1 Specialty Diagnoses / Procedures Referred By Contac t Referred To Contact Radiology Diagnoses BRCA2 gene mutation positive Breast cancer screening, high risk patient Procedures BI mammo bilateral screening tomosynthesis Kely Crain, DISTANCE EDUCATION FACULTY LIAISON-HEALTH ADMINISTRATOR [address] [facility] [address] [place] [address] Referral ID Status Reason Start Date Expiration Date Visits Requested Visits Authorized [id number] Authorized Perform Procedure 10/26/2023 10/25/2024 1 1 Specialty Diagnoses / Procedures Referred By Contac t Referred To Contact Gastroenterology Diagnoses 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) Procedures Endoscopic Ultrasound (Upper) [place] [address] [facility] Department [place] [id number] Referral ID Status Reason Start Date Expiration Date V isits Requested Visits Authorized [id number] Authorized 10/05/2023 10/04/2024 1 1 Additional Source Comments Source Comments (unrecognize d section and content) In the event this informatio n is protected by the Federal Confidentiality of Alcohol and Drug Abuse Patient Records regulations: The Federal rules restrict any use of the information to criminally investigate or prosecute any alcohol or drug abuse patient.[facility] the event this information is protected by the Federal Confidentiality of Alcohol and Drug Abuse Patient Records regulations: The Federal rules restrict any use of the information to criminally investigate or prosecute any alcohol or drug abuse patient.[facility] the event this information is protected by the Federal Confidentiality of Alcohol and Drug Abuse Patient Records regulations: The Federal rules restrict any use of the information to criminally investigate or prosecute any alcohol or drug abuse patient.[facility] the event this information is protected by the Federal Confidentiality of Alcohol and Drug Abuse Patient Records regulations: The Federal rules restrict any use of the information to criminally investigate or prosecute any alcohol or drug abuse patient.[facility] the event this information is protected by the Federal Confidentiality of Alcohol and Drug Abuse Patient Records regulations: The Federal rules restrict any use of the information to criminally investigate or prosecute any alcohol or drug abuse patient.[facility] the event this information is protected by the Federal Confidentiality of Alcohol and Drug Abuse Patient Records regulations: The Federal rules restrict any use of the information to criminally investigate or prosecute any alcohol or drug abuse patient.[facility] the event this information is protected by the Federal Confidentiality of Alcohol and Drug Abuse Patient Records regulations: The Federal rules restrict any use of the information to criminally investigate or prosecute any alcohol or drug abuse patient.[facility] the event this information is protected by the Federal Confidentiality of Alcohol and Drug Abuse Patient Records regulations: The Federal rules restrict any use of the information to criminally investigate or prosecute any alcohol or drug abuse patient.[facility] Reason for Visit (unrecogniz ed section and content) Reason Comments Liver Disease Specialty Diagnoses / Procedures Referred By Contvinnie t Referred To Contact [facility] Diagnoses Primary biliary cholangitis (HCC) [K74.3] Procedures REFERRAL TO [facility]CIAL [facility]SEL[facility] Video visit Yas Meza MD [address] [place] [address] [address] Referral ID Status Reason Start Date Expiration Date Visits Requested Visits Authorized [id number] Closed Financial Clearance Required - OON Payor OON Notification Letter Patient cleared - OON Required Payment Collected 03/23/2022 10/11/2022 1 1 Reason Comments Appointment Specialty Diagnoses / Procedures Referred By Contact Referred To Contact Gastroenterology / GASTROENTEROLOGY Diagnoses Primary bilary cholangitis Procedures REFERRAL TO [facility]CIAL [facility]SEL[facility] EST VIRTUAL VISIT PATIENT Yas Meza MD [address] [place] [address] Yas Meza MD [address] [place], [place] [address] [address] Referral ID Status Reason Start Date Expiration Date Visits Requested Visits Authorized [id number] Closed Financial Clearance Required - Self Pay Financial Clearance Required - OON Payor OON Notification Letter Patient Cleared Patient chose to pay or Auth obtained after CCN denied 10/13/2021 01/11/2022 1 1 Reason Comments Orders Reason Comments Results Specialty Diagnoses / Procedures Referred By Rosaura gonzalez Referred To Contact [facility] Diagnoses Primary biliary cholangitis (HCC) Procedures virtual visit Yas Meza MD [address] [place] [id number] [place] [address] Referral ID Status Reason Start Date Expiration Date V isits Requested Visits Authorized [id number] Closed OON/Self Pay Override 01/18/2023 04/19/2023 1 1 Reason Comments Results Specialty Diagnoses / Procedures Referred By Rosaura t Referred To Contact Gastroenterology Diagnoses 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) Procedures Endoscopic Ultrasound (Upper) [place] [address] [facility] Department [place] [address] Referral ID Status Reason Start Date Expiration Date V isits Requested Visits Authorized [id number] Authorized 10/05/2023 10/04/2024 1 1 Reason Comments New Patient Visit High Risk Breast Cancer Specialty Diagnoses / Procedures Referred By Contac t Referred To Contact Surgical Oncology Diagnoses BRCA2 [place] [address] Department of Pediatrics-Genetics [place] [phone] Referral ID Status Reason Start Date Expiration Date Visits Requested Visits Authorized [id number] Authorized Specialty Services Required 09/06/2023 09/05/2024 1 1 Reason Comments Follow-up Specialty Diagnoses / Procedures Referred By Contac t Referred To Contact Radiology Diagnoses BRCA2 gene mutation positive Breast cancer screening, high risk patient Procedures MR breast bilateral w contrast full protocol Kely Crain APRN-HEALTH ADMINISTRATOR [address] [place] [address] Referral ID Status Reason Start Date Expiration Date Visits Requested Visits Authorized [id number] Authorized Perform Procedure 10/26/2023 10/25/2024 1 1 Reason Comments Abnormal Breast Imaging Specialty Diagnoses / Procedures Referred By Eddieac t Referred To Contact Radiology Diagnoses Abnormal findings on diagnostic imaging of breast Procedures BI breast biopsy clip imaging Kely Crain APRN-HEALTH ADMINISTRATOR [address] [place] [address] Referral ID Status Reason Start Date Expiration Date Visits Requested Visits Authorized [id number] Authorized Perform Procedure 11/25/2023 11/24/2024 1 1 Specialty Diagnoses / Procedures Referred By Contac t Referred To Contact Radiology Diagnoses Abnormal MRI Procedures BI US breast limited right Kely Crain APRN-HEALTH ADMINISTRATOR [address] [place] [address] Referral ID Status Reason Start Date Expiration Date Visits Requested Visits Authorized [id number] Authorized Perform Procedure 11/25/2023 11/24/2024 1 1 Specialty Diagnoses / Procedures Referred By Contac t Referred To Contact Radiology Diagnoses Abnormal MRI Procedures BI US guided breast localization and biopsy right Kely Crain APRN-HEALTH ADMINISTRATOR [address] [place] [address] Referral ID Status Reason Start Date Expiration Date Visits Requested Visits Authorized [id number] Canceled Perform Procedure 11/25/2023 11/24/2024 1 1 Specialty Diagnoses / Procedures Referred By Contac t Referred To Contact Radiology Diagnoses Abnormal MRI, breast Mass of lower outer quadrant of right breast Procedures BI MR breast vacuum assisted biopsy Kely Crain, DISTANCE EDUCATION FACULTY LIAISON-HEALTH ADMINISTRATOR [address] [place] [address] Referral ID Status Reason Start Date Expiration Date Visits Requested Visits Authorized [id number] Authorized Perform Procedure 12/06/2023 12/05/2024 1 1 Specialty Diagnoses / Procedures Referred By Contac t Referred To Contact Radiology Diagnoses Abnormal mammogram Procedures BI breast biopsy clip imaging Kely Crain, DISTANCE EDUCATION FACULTY LIAISON-HEALTH ADMINISTRATOR [address] [place] [address] Referral ID Status Reason Start Date Expiration Date Visits Requested Visits Authorized [id number] Authorized Perform Procedure 12/06/2023 12/05/2024 1 1 Specialty Diagnoses / Procedures Referred By Contac t Referred To Contact Diagnoses BRCA gene mutation positive BRCA gene mutation positive [Z15.01, Z15.09] Procedures PA LAPAROSCOPY W/RMVL ADNEXAL STRUCTURES Laparoscopic Bilateral [place] [address] [place] [address] [facility] [place] [address] [address] [place] [address] Referral ID Status Reason Start Date Expiration Date Visits Re quested Visits Authorized [id number] 1 1 Reason Onset Date Comments Med Refill 07/05/2024 Care Teams (unrecognized sec tion and content) Senior Oracle Database Administrator Relationship Specialty Start Date End Date Alok Choi Jr. [facility] [address] [id number] PCP - General 04/21/06 Senior Oracle Database Administrator Relationship Specialty Start Date End Date Alok Choi Jr. [address] [place] [address] PCP - General 04/21/06 Senior Oracle Database Administrator Relationship Specialty Start Date End Date Alok Choi Jr. [address] [place] [address] PCP - General 04/21/06 Senior Oracle Database Administrator Relationship Specialty Start Date End Date Alok Choi JrDylon [address] [place] [address] PCP - General 04/21/06 Senior Oracle Database Administrator Relationship Specialty Start Date End Date Alok Choi Jr. [address] [place] [address] PCP - General 04/21/06 Senior Oracle Database Administrator Relationship Specialty Start Date End Date Alok Choi Neftali Dylon [address] [place] [address] PCP - General 04/21/06 Senior Oracle Database Administrator Relationship Specialty Start Date End Date Alok Choi Neftali Kaplan [address] [place] [address] PCP - General 04/21/06 Senior Oracle Database Administrator Relationship Specialty Start Date End Date Shaikh Guo MD [address] [place] [address] PCP - General Internal Medicine 09/08/23 Senior Oracle Database Administrator Relationship Specialty Start Date End Date Shaikh Guo MD [address] [place] [address] PCP - General Internal Medicine 09/08/23 Senior Oracle Database Administrator Relationship Specialty Start Date End Date Shaikh Guo MD [address] [place] [address] PCP - General Internal Medicine 09/08/23 Senior Oracle Database Administrator Relationship Specialty Start Date End Date Shaikh Guo MD [address] [place] [address] PCP - General Internal Medicine 09/08/23 [place] [address] [place] [address] T[employer]ical Deception Plans Officer Obstetrics and Gynecology 11/07/23 Senior Oracle Database Administrator Relationship Specialty Start Date End Date Shaikh Guo MD PCP - General Internal Medicine 09/08/23 [place] [address] [place] [address] Tactical Deception Plans Officer Obstetrics and Gynecology 11/07/23 Senior Oracle Database Administrator Relationship Specialty Start Date End Date Shaikh Guo MD PCP - General Internal Medicine 09/08/23 [place] [address] [place] [address] Tactical Deception Plans Officer Obstetrics and Gynecology 11/07/23 Senior Oracle Database Administrator Relationship Specialty Start Date End Date Shaikh Guo MD PCP - General Internal Medicine 09/08/23 [place] [address] [place] [address] Tactical Deception Plans Officer Obstetrics and Gynecology 11/07/23 Senior Oracle Database Administrator Relationship Specialty Start Date End Date Shaikh Guo MD PCP - General Internal Medicine 09/08/23 [place] [address] [place] [address] Tactical Deception Plans Officer Obstetrics and Gynecology 11/07/23 Senior Oracle Database Administrator Relationship Specialty Start Date End Date Shaikh Guo MD PCP - General Internal Medicine 09/08/23 [place] [address] [place] [address] Tactical Deception Plans Officer Obstetrics and Gynecology 11/07/23 Senior Oracle Database Administrator Relationship Specialty Start Date End Date Shaikh Guo MD PCP - General Internal Medicine 09/08/23 [place] [address] [place] [address] Tactical Deception Plans Officer Obstetrics and Gynecology 11/07/23 Senior Oracle Database Administrator Relationship Specialty Start Date End Date Shaikh Guo MD [address] [place] [address] PCP - General Internal Medicine 12/20/23 [place] [address] [place] [address] Tactical Deception Plans Officer Obstetrics and Gynecology 11/07/23 Senior Oracle Database Administrator Relationship Specialty Start Date End Date Shaikh Guo MD [address] [place] [address] PCP - General Internal Medicine 12/20/23 [place] [address] [place] [address] Tactical Deception Plans Officer Obstetrics and Gynecology 11/07/23 Senior Oracle Database Administrator Relationship Specialty Start Date End Date Shaikh Guo MD [address] [place] [address] PCP - General Internal Medicine 12/20/23 [place] [address] [place] [address] Tactical Deception Plans Officer Obstetrics and Gynecology 11/07/23 Senior Oracle Database Administrator Relationship Specialty Start Date End Date Shaikh Guo MD [address] [place] [address] PCP - General Internal Medicine 12/20/23 [place] [address] [place] [address] Tactical Deception Plans Officer Obstetrics and Gynecology 11/07/23 Senior Oracle Database Administrator Relationship Specialty Start Date End Date Shaikh Guo MD [address] [place] [address] PCP - General Internal Medicine 12/20/23 [place] [address] [place] [id number] Tactical Deception Plans Officer Obstetrics and Gynecology 11/07/23 Senior Oracle Database Administrator Relationship Specialty Start Date End Date Shaikh Guo MD PCP - General Internal Medicine 03/30/23 INFORMATION SOURCE (unrecogn ized section and content) DATE CREATED AUTHOR 03/29/2022 [facility] dical Specialist DATE CREATED AUTHOR AUTHOR'S ORGANIZ ATION 01/08/2023 [facility] DATE CREATED AUTHOR AUTHOR'S ORGANIZ ATION 05/07/2023 [facility] DATE CREATED AUTHOR AUTHOR'S ORGANIZ ATION 02/28/2024 [facility] DATE CREATED AUTHOR AUTHOR'S ORGANIZ ATION 04/25/2024 [facility] dical Specialists EPIC DATE CREATED AUTHOR AUTHOR'S ORGANIZ ATION 04/28/2024 [facility] DATE CREATED AUTHOR AUTHOR'S ORGANIZ ATION 05/27/2024 [facility] DATE CREATED AUTHOR AUTHOR'S ORGANIZ ATION 06/24/2024 [facility] Scheduled Active and Recently Administ ered Medications [...] BE BASED ON THE PRIMARY CLINICAL RECORDS. [facility]. provides no warranty or guarantee of the accuracy or completeness of information in this document.
[2024-08-07 13:35] LABS: Alanine Aminotransferase 110 U/L (14-59); Albumin Globulin Ratio 0.9; Albumin Level 3.6 g/dL (3.4-5.0); Alkaline Phosphatase 111 U/L (46-116); Aspartate Amino Transferase 61 U/L (15-37); Bilirubin Direct 0.1 mg/dL (0.0-0.2); Bilirubin Total 0.5 mg/dL (0.2-1.0); Globulin 4.2 g/dL; Total Protein 7.8 g/dL (6.4-8.2)
== END 2024-08-07 09:17 | disposition home or self-care (01) ==
LOC: LAB 09:18
DX: K74.3 Primary biliary cirrhosis (principal)
CPT/HCPCS: 36415; 80076

== ENCOUNTER 2024-09-05 09:27 | Outpatient (OUT) | payer OTHER, SELFPAY ==
[2024-09-05 10:18] LABS: Alanine Aminotransferase 79 U/L (14-59); Albumin Globulin Ratio 0.9; Albumin Level 3.5 g/dL (3.4-5.0); Alkaline Phosphatase 121 U/L (46-116); Aspartate Amino Transferase 43 U/L (15-37); Bilirubin Direct 0.1 mg/dL (0.0-0.2); Bilirubin Total 0.4 mg/dL (0.2-1.0); Globulin 4.1 g/dL; Total Protein 7.6 g/dL (6.4-8.2)
== END 2024-09-05 09:28 | disposition home or self-care (01) ==
LOC: LAB 09:28
DX: K74.3 Primary biliary cirrhosis (principal)
CPT/HCPCS: 36415; 80076

== ENCOUNTER 2025-02-12 09:41 | Outpatient (OUT) | payer OTHER, SELFPAY | END 2025-02-12 09:42 | disposition home or self-care (01) | LOC: LAB 09:45 | DX: R74.8 Abnormal levels of other serum enzymes (principal); K74.3 Primary biliary cirrhosis; E55.9 Vitamin D deficiency, unspecified | CPT/HCPCS: 36415; 82306; 84080 ==

== ENCOUNTER 2025-04-20 08:08 | Outpatient (OUT) | payer OTHER, SELFPAY ==
--- OUTSIDE RECORDS SUMMARY | 2025-04-20 08:12 | XMS_ITS | CCD ---
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 Primary Care Provider BRANT, GRAVES Primary Care Physician [phone] Alok Choi Jr. Primary Care Provider ASHAM, [...] O'MARTIN, YAS S Attending Unavailable Brant URIAS, [facility] Primary Care Provider Brant URIAS, [facility] Primary Care Provider Minoo Hernandez MD Unavailable Brant URIAS, [facility] Primary Care Provider Brant URIAS, [facility] Primary Care Provider HERMES JOHNSON Attending Unavailable HERMES JOHNSON Attending Unavailable JUAN GONZALEZA Alexx Attending Unavailable [facility] Primary Care Unavailable ARNULFO RYAN Admitting Unavailable ARNULFO RYAN Attending Unavailable ROZ RYANRE Alexx Referring Unavailable Vitaly Stauffer Talal Attending Unavaila [facility] Vitaly Stauffer Talal Attending Unavaila [facility] Primary Care Unavailable Vitaly Stauffer Talal Attending Unavaila Vitaly Ravi Talal Attending Unavaila [facility] Primary Care Unavailable GILBERT WATSON Attending Unavailable Brant URIAS, [facility] Primary Care Provider Minoo Hernandez MD Unavailable Brant URIAS, [facility] Provider [phone] KELY CRAIN Attending Unavailable KELY CRAIN Referring Unavailable [facility] Primary Care Unavailable KELY CRAIN Referring Unavailable [facility] Primary Care Unavailable KELY CRAIN Referring Unavailable [facility] Primary Care Unavailable Gene URIAS, Rian [facility] Unavailable ARNULFO RYAN Attending Unavailable [facility] Primary Care Unavailable ARNULFO RYAN Attending Unavailable [facility] Primary Care Unavailable ROZ RYANRE Alexx Referring Unavailable [facility] Primary Care Unavailable ARNULFO RYAN Attending Unavailable [facility] Primary Care Unavailable Samantha Sahu DDS Attending Unavailable NIA SRIVASTAVA Attending Unavailable ANGELY SALINAS Attending Unavailable ADOLFO RAMIREZ Attending Unavailable ADOLFO RAMIREZ Referring Unavailable ANGELY SALINAS Attending Unavailable ANGELY SALINAS Referring Unavailable Allergies Allergy Classification Reported Allergen(s) Allergy Type Date of Onset Reaction(s) Facility (20 sources) rifAMPin; Translations: [RIFAMPIN] Drug Allergy 06-15-20 06 Rash, Itching [facility] (20 sources) Sulfonamides (Antibiotic); Translations: [SULFA (SULFONAMIDE ANTIBIOTICS)] Drug Allergy 09-18-20 19 Other: See Anny Sanders [facility] (9 sources) Sulfonamides (Antibiotic); Translations: [sulfa drugs] Drug allergy allergy [facility] (1 source) Sulfonamides (Antibiotic) Drug allergy (disorder) 06-28-20 13 [facility] Rep[facility] (1 source) ALLERGIES NOT ON FILE; Translations: [ALLERGIES NOT ON FILE] Propensity to adverse reactions (disorder) [facility] 3 Repository (10 sources) rifAMPin Drug Allergy 06-15-20 06 Itching, Rash [facility] (10 sources) Sulfamethoxazole / Trimethoprim Drug Allergy 03-30-20 [facility] (10 sources) Sulfanilamide Allergy to substance 03-30-20 23 [facility] Medications Current Medications Medication Drug Class(es) Dates Sig (Normalized) Sig (Original) acetaminophen 325 mg oral tablet (7 sources) Start: 01-19-2024 take 3 tablets by [...] / zinc oxide 40 mg oral tablet (10 sources) Vitamin C Multiple Vitamin (Multivitamin Adult) tablet Active calcium carbonate 1250 mg / cholecalciferol [...] (only) calcium citrate 500 mg oral tablet (13 sources) Start: 11-17-2020 take 500 mg by mouth twice daily calcium citrate 500 mg, Oral, BID, Refills(s) 0, Prophylaxis Start Date: 11/17/20 Status: Ordered take 1 tablet by mouth once coy y calcium citrate (Calcitrate) 950 (200 Ca) MG tablet Take 950 mg by mouth Daily Active cefdinir 300 mg oral capsule (2 sources) Cephalosporin Antibacterial Start: 01-15-2025 End: 01-25-2025 take 1 capsule by mouth in the morning cefdinir (Omnicef) 300 MG capsule Indications: Acute rhinosinusitis Take 1 capsule (300 mg) by mouth in the morning and 1 capsule (300 mg) before bedtime. Do all this for 10 days. 20 capsule 01/15/2025 01/25/2025 Active 2 ml droperidol 2.5 mg/ml injection (1 source) Dopamine-2 Receptor Antagonist Start: 01-19-2024 0.625 mg, intravenous, Once as needed, nausea/vomiting, second line, Starting on Mallory 01/19/24 at 0958, For 1 dose, Recovery (only), Monitor QTc while on therapy (2 lead monitoring) Elafibranor (Iqirvo) 80 MG tablet (5 sources) Start: 01-03-2025 End: 01-03-2026 take 1 tablet by mouth in the morning Elafibranor (Iqirvo) 80 MG tablet Take 80 mg by mouth in the morning. 01/03/2025 01/03/2026 Active elafibranor 80 mg tablet (4 sources) Start: 01-03-2025 End: 01-03-2026 take 1 tablet by mouth once daily elafibranor 80 mg tablet Indications: primary biliary cholangitis Take 1 tablet (80 mg) by mouth once daily. 30 tablet 11 03/19/2025 11:44 AM EDT 01/03/2025 01/03/2026 Active Start: 12-31-2024 End: 12-31-2025 take 1 tablet by mouth once daily elafibranor 80 mg tablet Indications: primary biliary cholangitis Take 80 mg by mouth once daily. 30 tablet 11 12/31/2024 12/31/2025 Active Start: 06-13-2024 End: 06-13-2025 take 1 tablet by mouth once daily elafibranor 80 mg tablet Indications: primary biliary cholangitis Take 80 mg by mouth once daily. 30 tablet 11 06/13/2024 06/13/2025 Active Start: 05-14-2024 End: 05-21-2024 take 1 tablet by mouth once daily elafibranor 80 mg tablet Indications: primary biliary cholangitis Take 80 mg by mouth once daily. 30 tablet 11 05/14/2024 05/21/2024 Discontinued (Reorder) ergocalciferol 1.25 mg oral capsule (16 sources) Provitamin D2 Compound Start: 12-07-2024 End: 03-01-2025 take 1 capsule by mouth every week ergocalciferol (Vitamin D2) 1.25 MG (67867 UT) capsule Indications: Avitaminosis D Take 1 capsule (1.25 mg) by mouth 1 (one) time per week 12 capsule 12/07/2024 03/01/2025 Active Start: 07-09-2024 End: 10-01-2024 take 1 capsule by mouth every week ergocalciferol (Vitamin D2) 1.25 MG (34814 UT) capsule Indications: Avitaminosis D Take 1 capsule (1.25 mg) by mouth 1 (one) time per week 12 capsule 07/09/2024 10/01/2024 Active Start: 03-29-2024 End: 07-05-2024 ergocalciferol (Vitamin D2) 1.25 MG (64887 UT) capsule 03/29/2024 07/05/2024 Discontinued (Reorder) Start: 11-09-2019 ergocalciferol 50,000 unit capsule (VITAMIN D2, DRISDOL) TK 1 C PO TWICE A WEEK ON TUESDAY AND TUESDAY 0 11/09/2019 Active Comment on above: TK 1 C PO TWICE A WE EK ON TUESDAY AND ISABEL fenofibrate 145 mg oral tablet (20 sources) Peroxisome Proliferator Receptor alpha Agonist Start: 3 End: 5 take 0.5 tablet by mouth every other day fenofibrate 145 mg Tab 1/2 tab(s), Oral, Every other day, X 90 day(s), # 90 tab(s), Refills(s) 3, Pharmacy: [facility] [id number], 160, cm, 01/18/24 10:59:00 EDT, Height/Length Dosing, 86, kg, 01/18/24 10:59:00 EDT, Weight Dosing Start Date: 01/18/24 Stop Date: 01/12/25 Status: Ordered Start: 09-15-2021 take 0.5 tablet by m out once daily fenofibrate 145 mg Tab 1/2 tab(s), Oral, Daily, # 30 tab(s), Refills(s) 4, Pharmacy: [place] [id number], 160, cm, 09/15/21 14:38:00 EST, Height/Length Dosing, [...] of dose. ibuprofen 600 mg oral tablet (7 sources) Nonsteroidal Anti-inflammatory Drug Start: 01-19-2024 take 1 tablet by mouth every six hours for pain ibuprofen 600 mg tablet Indications: Postoperative pain Take 1 tablet (600 mg) by mouth every 6 hours if needed for moderate pain (4 - 6) for up to 50 doses. 50 tablet 01/19/2024 Active levothyroxine sodium 0.112 mg oral tablet (20 sources) l-Thyroxine Start: 03-12-2025 take 1 tablet by mouth once daily in the morning levothyroxine (Synthroid, Levoxyl) 112 MCG tablet Indications: Matthew's thyroiditis TAKE ONE TABLET BY MOUTH EVERY MORNING ON AN EMPTY STOMACH 90 tablet 1 03/12/2025 Active Start: 10-15-2024 take 1 tablet by sara th once daily in the morning levothyroxine (Synthroid, Levoxyl) 112 MCG tablet Indications: Matthew's thyroiditis (CMS/HCC) TAKE ONE TABLET BY MOUTH EVERY MORNING ON AN EMPTY STOMACH 90 tablet 1 10/15/2024 Active Start: 12-22-2020 take 1 tablet by sara th once daily, then take 5 tablets by mouth every week levothyroxine (SYNTHROID) 150 mcg tablet Indications: Other specified hypothyroidism Take 1 tablet by mouth once daily. But skip Saturdays and Sundays (so total 5 tablets per week) 66 tablet 3 12/22/2020 Active Start: 01-22-2016 levothyroxine 175 microgram, Oral, As Directed, Refills(s) 0, Thyroid Start Date: 01/22/16 Status: Ordered End: 03-19-2025 take 1 capsule by mouth once daily levothyroxine (Tirosint) 112 mcg capsule Take 1 capsule (112 mcg) by mouth once daily. 03/19/2025 Discontinued (Med List Cleanup) levothyroxine (S ynthroid, Levoxyl) 112 MCG tablet 1 (one) time each day at the same time. Active Comment on above: Take 1 tablet by sara th once daily. But skip Saturdays and Sundays (so total 5 tablets per week) Meperidine (1 source) Opioid Agonist Start: 01-19-2024 [...] Daily, # 30 tab(s), Refills(s) 0, Pharmacy: [facility], 160, cm, 01/12/23 10:47:00 EDT, Height/Length Dosing, 84.6, kg, 01/12/23 10:47:00 EDT, Weight Dosing Start Date: 01/12/23 Status: Ordered Start: 10-21-2021 End: 01-15-2025 take 1 tablet by mouth once daily Ocaliva 5 mg oral tablet 5 mg = 1 tab(s), Oral, Daily, X 90 day(s), # 90 tab(s), Refills(s) 3, Pharmacy: [facility], 160, cm, 09/15/21 14:38:00 [...] Weight Dosing Start Date: 09/15/21 Status: Ordered oxyCODONE hydrochloride 5 mg oral tablet (1 [...] 1-6 LPM, Keep O2 Sat Above: 92% Vitamin D 50,000 intl units (1.25 mg) oral capsule (13 sources) Start: 05-12-2023 End: 05-06-2024 Vitamin D 50,000 intl units (1.25 mg) oral capsule 50,000 International_Unit, Oral, qWeek, X 90 day(s), # 12 cap(s), Refills(s) 3, Pharmacy: [facility] [id number], 160, cm, 05/12/23 13:51:00 EDT, Height/Length Dosing, 83.4, kg, 05/12/23 13:51:00 EDT, Weight Dosing Start Date: 05/12/23 Stop Date: 05/06/24 Status: Ordered Start: 04-18-2023 End: 05-18-2023 Vitamin D 50,000 intl units (1.25 mg) oral capsule 50,000 International_Unit, Oral, qWeek, X 30 day(s), # 4 cap(s), Refills(s) 0, Pharmacy: [facility] [id number], 160, cm, 01/12/23 10:47:00 EDT, Height/Length Dosing, 84.6, kg, 01/12/23 10:47:00 EDT, Weight Dosing Start Date: 04/18/23 Stop Date: 05/18/23 Status: Ordered Start: 09-09-2022 take 1 capsule by mouth once V itamin D 50,000 intl units (1.25 mg) oral capsule See Instructions, 1 cap(s) Oral As Directed tuesday-Tuesday as previously prescribed per Dr. Bill., # 24 cap(s), Refills(s) 1, Pharmacy: [facility] [id number], 160, cm, 05/13/22 13:20:00 EDT, Height/Length Dosing, 76.6, kg, 05/13/22 13:20:00 EDT, Weight Dosing Start Date: 09/09/22 Status: Ordered Start: 09-09-2022 take 1 capsule by mouth once V itamin D 50,000 intl units (1.25 mg) oral capsule See Instructions, 1 cap(s) Oral As Directed tuesday-Tuesday as previously prescribed per Dr. Bill., # 24 cap(s), Refills(s) 1, Pharmacy: [facility] [id number], 160, cm, 05/13/22 13:20:00 EDT, Height/Length Dosing, 76.6, kg, 05/13/22 13:20:00 EDT,... Start Date: 09/09/22 Status: Ordered Start: 09-15-2021 Vitamin D 50,0 00 intl units (1.25 mg) oral capsule 50,000 International_Unit, Oral, As Directed, # 24 cap(s), Refills(s) 0, Pharmacy: [place] [id number], 160, cm, 09/15/21 14:38:00 EST, Height/Length Dosing, [...] Start: 11-17-2020 take 1 tablet by sara once daily alendronate 10 mg Tab 10 mg = 1 tab(s), Oral, Daily, osteoporosis, Refills(s) 0, Other (see comment) Start Date: 11/17/20 Status: Ordered End: 03-19-2025 take 1 tablet by mouth in the morning alendronate (Fosamax) 70 mg tablet Take 1 tablet (70 mg) by mouth every 7 days. Take in the morning with a full glass of water, on an empty stomach, and do not take anything else by mouth or lie down for the next 30 min. 03/19/2025 Discontinued (Med List Cleanup) Comment on above: TAKE 1 TABLET BY SARA TH ONCE EVERY WEEK. TAKE WITH FULL GLASS OF WATER IN THE MORNING ON AN EMPTY STOMACH. DO NOT LIE DOWN FOR 30 MINUTES Calcium (7 sources) Phosphate Binder, Calcium End: 01-15-2025 CALCIUM PO Take by mouth 01/15/2025 Discontinued (Therapy completed) CALCIUM PO Take by mouth Active calcium citrate 1500 mg / cholecalciferol 200 unt oral tablet (20 sources) Vitamin D End: 03-19-2025 take 1 tablet by mouth once daily calcium citrate-vitamin D3 (Citracal+D) 315 mg-5 mcg (200 unit) tablet Take 1 tablet by mouth once daily. 03/19/2025 Discontinued (Med List Cleanup) cholecalciferol 1.25 mg oral capsule (13 sources) Vitamin D Start: 02-17-2024 End: 01-15-2025 take 1 capsule by mouth every week cholecalciferol (Vitamin D-3) 1.25 MG (57177 UT) capsule Take 50,000 Units by mouth 1 (one) time per week 02/17/2024 01/15/2025 Discontinued (Therapy completed) clobetasol propionate 0.0005 mg/mg topical ointment (8 [...] m) 0.5 mmol/mL contrast injection 17 mL gadoterate meglumine (Dotarem) 0.5 mmol/mL contrast injection 18 mL (1 source) Start: 12-31-2024 End: 12-31-2024 inject 18 mL intravenously once 18 mL, intravenous, Once in imaging, Starting on 12/31/24 at 1143, For 1 dose, Administer undiluted as rapid I.V. bolus injection LORazepam 1 mg oral tablet (15 sources) Benzodiazepine Start: 12-06-2023 End: 03-21-2025 LORazepam (Ativan) 1 mg tablet Indications: Situational anxiety Take one tablet by mouth one hour prior to MRI. You may take one more tablet by mouth up to 15 minutes prior to MRI if needed. 2 tablet 12/06/2023 03/21/2025 Discontinued (Med List Cleanup) MULTIVITAMIN ORAL (8 sources) take 1 tablet by mouth once daily MULTIVITAMIN ORAL Take 1 tablet by mouth once daily. 0 Active Comment on above: Take 1 tablet by [facility] once daily. ondansetron 4 mg oral tablet (8 sources) Serotonin-3 Receptor Antagonist Start: 01-19-2024 End: 03-21-2025 take 1 tablet by mouth every six hours for nausea ondansetron (Zofran) 4 mg tablet Indications: Postoperative pain Take 1 tablet (4 mg) by mouth every 6 hours if needed for nausea for up to 20 doses. 20 tablet 01/19/2024 03/21/2025 Discontinued (Med List Cleanup) Start: 01-19-2024 4 mg, intraven ous, Once as needed, nausea/vomiting, first line, Starting on Mallory 01/19/24 at 0958, For 1 dose, Recovery (only), When administering via IV Push, administer over 3-5 minutes. polyethylene glycol 3350 61336 mg powder for oral solution (7 sources) Osmotic Laxative Start: 01-19-2024 End: 03-21-2025 polyethylene glycol (Glycolax, Miralax) 17 gram packet Indications: Postoperative pain Take 17 g by mouth once daily as needed (for constipation) for up to 10 doses. 10 packet 01/19/2024 03/21/2025 Discontinued (Med List Cleanup) predniSONE 10 mg oral tablet (11 sources) Start: 04-23-2024 End: 03-21-2025 predniSONE (Deltasone) 10 MG tablet Indications: Plantar fasciitis, left , Inflammatory heel pain, left , Calcaneal spur, left , Difficulty walking 1 tablet twice daily x 7 days; followed by 1 tablet daily as directed until complete 21 tablet 04/23/2024 01/15/2025 Discontinued (Therapy completed) tirzepatide, weight loss, (Zepbound) 2.5 mg/0.5 mL injection (3 sources) Start: 09-20-2024 End: 03-21-2025 tirzepatide, weight loss, (Zepbound) 2.5 mg/0.5 mL injection Indications: Severe obesity (BMI 35.0-35.9 with comorbidity) (Multi) Inject 2.5 mg under the skin every 7 days. 4 each 09/20/2024 03/21/2025 Discontinued (Med List Cleanup) Start: 09-20-2024 tirzepatide, w eight loss, (Zepbound) 2.5 mg/0.5 mL injection Indications: Severe obesity (BMI 35.0-35.9 with comorbidity) (Multi) Inject 2.5 mg under the skin every 7 days. 4 each 09/20/2024 Active Start: 08-14-2024 tirzepatide, w eight loss, (Zepbound) 2.5 mg/0.5 mL injection Indications: Severe obesity (BMI 35.0-35.9 with comorbidity) (Multi) Inject 2.5 mg under the skin every 7 days. 4 each 08/14/2024 Active traMADol hydrochloride 50 mg oral tablet (7 sources) Opioid Agonist Start: 01-19-2024 End: 03-21-2025 take 1 tablet by mouth every six hours for pain traMADol (Ultram) 50 mg tablet Indications: Postoperative pain Take 1 tablet (50 mg) by mouth every 6 hours if needed for severe pain (7 - 10) for up to 12 doses. 12 tablet 01/19/2024 03/21/2025 Discontinued (Med List Cleanup) ursodiol 300 mg oral capsule (20 sources) Bile Acid Start: 03-19-2025 End: 03-21-2025 take 2 capsules by mouth twice daily ursodiol (Actigall) 300 mg capsule Indications: Primary biliary cholangitis (Multi) Take 2 capsules (600 mg) by mouth 2 times a day. 120 capsule 11 03/19/2025 03/21/2025 Discontinued (Dose adjustment) Start: 09-15-2021 End: 11-20-2025 ursodiol (Actigall) 500 MG t ablet 03/14/2024 Active Start: 12-29-2020 take 1 tablet by sara th three times daily Ursodiol 500 mg tablet TK 1 T PO TID WF 180 tablet 3 12/29/2020 Active End: 01-15-2025 ursodiol (Actigall) 500 MG t ablet Take 1,250 mg by mouth in the morning and 1,250 mg before bedtime. 01/15/2025 Discontinued (Therapy completed) take 0.5 tablet by m outh once daily in the morning ursodiol (Actigall) 500 mg tablet Take 0.5 tablets (250 mg) by mouth once daily in the morning. Active Comment on above: TK 1 T PO TID WF Problems Active Problems Problem Classification Problem Date Documented Da te Episodic/Chronic Administrative/social admission (4 sources) Encounter for pre-employment examination; Translations: [ENCOUNTER FOR PRE-EMPLOYMENT EXAM] Onset: 11-23-2022 Episodic Anxiety disorders (1 source) Anxiety; Translations: [Other specified anxiety disorders] 12-06-2023 Chronic Cancer of pancreas (20 sources) Familial malignant neoplasm of pancreas; Translations: [Malignant neoplasm of pancreas, unspecified] Onset: 10-05-2023 10-05-2023 Chronic Menopausal disorders (4 sources) Menopausal and female climacteric states; Translations: [MENOPAUSAL FE CLIMACTERIC STATES] Onset: 09-22-2022 Chronic Nonmalignant breast conditions (10 sources) Fibrocystic disease of breast; Translations: [Diffuse cystic mastopathy of unspecified breast] Onset: 03-30-2023 03-30-2023 Chronic Nonmalignant breast conditions (3 sources) Lump in lower outer quadrant of right breast; Translations: [Unspecified lump in the right breast, lower outer quadrant] 12-06-2023 Episodic Nutritional deficiencies (20 sources) Vitamin D deficiency; Translations: [Vitamin D [...] deformities (4 sources) Osteopenia 05-12-2023 Episodic Other connective tissue disease (2 sources) Bursitis of left foot; Translations: [Other enthesopathy of left foot and ankle] 04-11-2025 Episodic Other connective tissue disease (2 sources) Pain in left foot; Translations: [Pain in left foot] 04-11-2025 Episodic Other liver diseases (20 sources) Primary biliary cholangitis; Translations: [Primary biliary cirrhosis] Onset: 01-21-2021 01-21-2021 Chronic Other liver diseases (7 sources) Primary biliary cirrhosis; Translations: [PRIMARY BILIARY CIRRHOSIS] Onset: 01-07-2023 Chronic Other nervous system disorders (12 sources) Difficulty walking; Translations: [Difficulty in walking, not elsewhere classified] Onset: 03-30-2023 03-30-2023 Chronic Other nervous system disorders (10 sources) Mortons neuroma of right foot; Translations: [Lesion of plantar nerve, right lower limb] Onset: 03-30-2023 03-30-2023 Chronic Other nervous system disorders (10 sources) Right foot neuritis; Translations: [Unspecified mononeuropathy of right lower limb] Onset: 03-30-2023 03-30-2023 Chronic Other nervous system disorders (10 sources) Chronic pain; Translations: [Other chronic pain] Onset: 03-30-2023 03-30-2023 Chronic Other nervous system disorders (1 source) Postoperative pain ; Translations: [Other acute postprocedural pain] 01-19-2024 Episodic Other nutritional; endocrine; and metabolic disorders (20 sources) Obesity; Translations: [Obesity, unspecified] Onset: 10-06-2023 10-06-2023 Chronic Other nutritional; endocrine; and metabolic disorders (4 sources) Severe obesity; Translations: [Morbid (severe) obesity due to excess calories] Onset: 10-06-2023 08-14-2024 Chronic Other nutritional; endocrine; and metabolic disorders (7 sources) Morbid obesity; Translations: [Morbid (severe) obesity due to excess calories] Onset: 01-15-2025 01-15-2025 Chronic Other screening for suspected conditions (not mental disorders or infectious disease) (2 sources) MRI scan abnormal; Translations: [Abnormal findings on diagnostic imaging of other specified body structures] 12-06-2023 Chronic Other skin disorders (2 sources) Acquired keratoderma; Translations: [Acquired keratosis [keratoderma] palmaris et plantaris] 04-11-2025 Episodic Other upper respiratory infections (7 sources) Acute rhinosinusitis; Translations: [Acute sinusitis, unspecified] Onset: 01-15-2025 01-15-2025 Episodic Residual codes; unclassified (3 sources) BRCA2 gene mutation positive; Translations: [Genetic susceptibility to malignant neoplasm of breast] 10-26-2023 Episodic Residual codes; unclassified (2 sources) Genetic susceptibility to malignant neoplasm of breast; Translations: [Genetic susceptibility to malignant neoplasm of breast] Onset: 09-21-2023 Episodic Residual codes; unclassified (2 sources) Genetic susceptibility to other malignant neoplasm; Translations: [Genetic susceptibility to other malignant neoplasm] Onset: 09-21-2023 Episodic Thyroid disorders (20 sources) Hypothyroidism; Translations: [Hypothyroidism, unspecified] Onset: 05-13-2022 Chronic Unclassified (1 source) Non-smoker 04-26-2024 Unclassified (2 sources) Consult; Translations: [Consult] Onset: 08-14-2024 Past or Other Problems Problem Classification Problem Date Documented Date Episodic/Chronic Allergic reactions (8 sources) Contact dermatitis; Translations: [Unspecified contact dermatitis, unspecified cause] Onset: 10-30-2006 10-30-2006 Episodic Immunizations and screening for infectious disease (20 sources) Anti-nuclear factor positive; Translations: [Other specified abnormal immunological findings in serum] Onset: 01-21-2021 01-21-2021 Episodic Malaise and fatigue (1 source) Other fatigue; Translations: [OTHER FATIGUE] Onset: 09-30-2022 Episodic Other and unspecified benign neoplasm (1 source) Personal history of colonic polyps; Translations: [PERSONAL HISTORY OF COLONIC POLYPS] Onset: 09-30-2022 Episodic Other connective tissue disease (18 sources) Decrease in height; Translations: [Loss of height] Onset: 01-21-2021 01-21-2021 Episodic Other inflammatory condition of skin (18 sources) Pruritus of skin; Translations: [Pruritus, unspecified] Onset: 10-30-2006 10-30-2006 Episodic Other injuries and conditions due to external causes (18 sources) H/O: fracture; Translations: [Personal history of (healed) traumatic fracture] Onset: 01-21-2021 01-21-2021 Episodic Other screening for suspected conditions (not mental disorders or infectious disease) (18 sources) Encounter for screening for diabetes mellitus; Translations: [Imaging of abdomen abnormal] Onset: 02-24-2022 Episodic Residual codes; unclassified (20 sources) 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; Translations: [Genetic susceptibility to malignant neoplasm of breast] Onset: 09-21-2023 09-21-2023 Episodic Residual codes; unclassified (2 sources) Family history of carrier of genetic disease; Translations: [Family history of carrier of genetic disease] Onset: 08-09-2023 Episodic Unclassified (20 sources) Onset: 09-08-2023 Resolved: 08-14-2024 09-08-2023 Viral infection (10 sources) Bilateral plantar wart; Translations: [Plantar wart] Onset: 03-30-2023 03-30-2023 Episodic Results Test Name Value Interpretation Reference Range Facility HEPATIC FUNCTION PANELon Albumin [Mass/Vol] 4.3 g/dL Normal 3.6-5.1 [facility] Comment on above: Performed By: #### 1 [id number] #### [facility] [address], [address] [place] [address] [id number] [employer]: Paddy Pickett MD Albumin/Globulin [Mass ratio] 1.5 {ratio} Normal 1.0-2.5 [facility] Comment on above: Performed By: #### 1 0256 #### [facility] [address], [address] [place] [id number] [employer]: Paddy Pickett MD ALP [Catalytic activity/Vol] 108 U/L Normal 37-153 [facility] Comment on above: Performed By: #### 1 0256 #### [facility] [place] [address] [employer]: Paddy Pickett MD ALT [Catalytic activity/Vol] 42 U/L High 6-29 [facility] Comment on above: Performed By: #### 1 0256 #### [facility] [place] [address] [employer]: Paddy Pickett MD AST [Catalytic activity/Vol] 31 U/L Normal 10-35 [facility] Comment on above: Performed By: #### 1 0256 #### [facility] [place] [address] [employer]: Paddy Pickett MD Bilirubin [Mass/Vol] 0.4 mg/dL Normal 0.2-1.2 [facility] Comment on above: Performed By: #### 1 0256 #### [facility] [place] [address] [employer]: Paddy Pickett MD BILIRUBIN, INDIRECT 0.3 mg/dL (calc) Normal 0.2-1.2 [facility] Comment on above: Performed By: #### 1 0256 #### [facility] [place] [address] [employer]: Paddy Pickett MD Bilirubin.indirect [Mass/Vol] 0.1 mg/dL Normal < OR = 0.2 [facility] Comment on above: Performed By: #### 1 0256 #### [facility] [place] [address] [employer]: Paddy Pickett MD Globulin (S) [Mass/Vol] 2.9 g/dL Normal 1.9-3.7 [facility] Comment on above: Performed By: #### 1 0256 #### [facility] [place] [address] [employer]: Paddy Pickett MD Protein [Mass/Vol] 7.2 g/dL Normal 6.1-8.1 [facility] Comment on above: Performed By: #### 1 0256 #### [facility] [address], [address] [place] [address] [employer]: Paddy Pickett MD MRI BREAST DOMINGO. W/CONTRASTon 01-01-2025 Source Facility: [facility] Interpreted By: Jasvir Bass, STUDY: BI MR BREAST BILATERAL WITH CONTRAST FULL PROTOCOL; 12/31/2024 12:20 pm ACCESSION NUMBER(S): [id number] ORDERING CLINICIAN: KELY CRAIN INDICATION: Supplemental screening. BRCA positive. History of a benign MRI guided biopsy. ,Z15.01 Genetic susceptibility to malignant neoplasm of breast,Z15.09 Genetic susceptibility to other malignant neoplasm COMPARISON: MRI dated 11/24/2023, 12/2023 TECHNIQUE: Using a dedicated breast coil, STIR axial and T1-weighted fat saturation axial images of the breasts were obtained, the latter both before and after intravenous administration of Gadolinium DTPA. On an independent workstation, 3-D images were formulated using [employer] including time enhancement curves, subtraction images and MIP images. Intravenous contrast: 18 ML of Dotarem FINDINGS: Density: Scattered fibroglandular tissue. There is symmetric minimal bilateral background enhancement. RIGHT BREAST: No suspicious mass or nonmass enhancement is identified. Post biopsy changes are noted in the lower outer quadrant of the right breast at an anterior depth. There is no associated suspicious enhancement. No axillary or internal mammary lymphadenopathy is appreciated. LEFT BREAST: No suspicious mass or nonmass enhancement is identified. No axillary or internal mammary lymphadenopathy is appreciated. NON-BREAST FINDINGS: Tiny cysts are noted again in the liver. They demonstrate no interval change. IMPRESSION: No MRI evidence of malignancy in either breast. The patient will be due for a screening mammogram in approximately 4 months. BI-RADS CATEGORY: BI-RADS Category: 2 Benign. Recommendation: Annual Screening. Recommended Date: 1 Year. Laterality: Bilateral. For any future breast imaging appointments, please call [phone] ([phone]). MACRO: None Signed by: Jasvir Bass 01/01/2025 9:37 AM Dictation workstation: [id number] Radiology, Radiologist, - 01/01/2025 Source Facility: [facility] Interpreted By: Jasvir Bass, STUDY: BI MR BREAST BILATERAL WITH CONTRAST FULL PROTOCOL; 12/31/2024 12:20 pm ACCESSION NUMBER(S): [id number] ORDERING CLINICIAN: KELY CRAIN INDICATION: Supplemental screening. BRCA positive. History of a benign MRI guided biopsy. ,Z15.01 Genetic susceptibility to malignant neoplasm of breast,Z15.09 Genetic susceptibility to other malignant neoplasm COMPARISON: MRI dated 11/24/2023, 12/2023 TECHNIQUE: Using a dedicated breast coil, STIR axial and T1-weighted fat saturation axial images of the breasts were obtained, the latter both before and after intravenous administration of Gadolinium DTPA. On an independent workstation, 3-D images were formulated using [employer] including time enhancement curves, subtraction images and MIP images. Intravenous contrast: 18 ML of Dotarem FINDINGS: Density: Scattered fibroglandular tissue. There is symmetric minimal bilateral background enhancement. RIGHT BREAST: No suspicious mass or nonmass enhancement is identified. Post biopsy changes are noted in the lower outer quadrant of the right breast at an anterior depth. There is no associated suspicious enhancement. No axillary or internal mammary lymphadenopathy is appreciated. LEFT BREAST: No suspicious mass or nonmass enhancement is identified. No axillary or internal mammary lymphadenopathy is appreciated. NON-BREAST FINDINGS: Tiny cysts are noted again in the liver. They demonstrate no interval change. IMPRESSION: No MRI evidence of malignancy in either breast. The patient will be due for a screening mammogram in approximately 4 months. BI-RADS CATEGORY: BI-RADS Category: 2 Benign. Recommendation: Annual Screening. Recommended Date: 1 Year. Laterality: Bilateral. For any future breast imaging appointments, please call [phone] ([phone]). MACRO: None Signed by: Jasvir Bass 01/01/2025 9:37 AM Dictation workstation: [id number] [facility] [employer] [facility] MRI BREAST DOMINGO. W/CONTRASTOr dered By: Radiologist Radiology on 01-01-2025 [employer] Work Phone: BI MR BREAST BILATERAL WITH CONTRAST FULL PROTOCOLon 12-31-2024 BI MR BREAST BILATERAL WITH CONTRAST FULL PROTOCOL Interpreted By: Jasvir Bass, STUDY: BI MR BREAST BILATERAL WITH CONTRAST FULL PROTOCOL; 12/31/2024 12:20 pm ACCESSION NUMBER(S): [id number] ORDERING CLINICIAN: KELY CRAIN INDICATION: Supplemental screening. BRCA positive. History of a benign MRI guided biopsy. ,Z15.01 Genetic susceptibility to malignant neoplasm of breast,Z15.09 Genetic susceptibility to other malignant neoplasm COMPARISON: MRI dated 11/24/2023, 12/2023 TECHNIQUE: Using a dedicated breast coil, STIR axial and T1-weighted fat saturation axial images of the breasts were obtained, the latter both before and after intravenous administration of Gadolinium DTPA. On an independent workstation, 3-D images were formulated using [employer] including time enhancement curves, subtraction images and MIP images. Intravenous contrast: 18 ML of Dotarem FINDINGS: Density: Scattered fibroglandular tissue. There is symmetric minimal bilateral background enhancement. RIGHT BREAST: No suspicious mass or nonmass enhancement is identified. Post biopsy changes are noted in the lower outer quadrant of the right breast at an anterior depth. There is no associated suspicious enhancement. No axillary or internal mammary lymphadenopathy is appreciated. LEFT BREAST: No suspicious mass or nonmass enhancement is identified. No axillary or internal mammary lymphadenopathy is appreciated. NON-BREAST FINDINGS: Tiny cysts are noted again in the liver. They demonstrate no interval change. IMPRESSION: No MRI evidence of malignancy in either breast. The patient will be due for a screening mammogram in approximately 4 months. BI-RADS CATEGORY: BI-RADS Category: 2 Benign. Recommendation: Annual Screening. Recommended Date: 1 Year. Laterality: Bilateral. For any future breast imaging appointments, please call [phone] ([phone]). MACRO: None Signed by: Jasvir Bass 01/01/2025 9:37 AM Dictation workstation: [id number] [facility] MRI BREAST DOMINGO. W/CONTRASTon 12-31-2024 Radiology Study observation (narrative) [facility] LIVER PANELon 4 Albumin [Mass/Vol] 3.5 g/dL 3.4 - 5.0 g/dL [facility] ALBUMIN GLOBULIN RATIO 0.9 NO [facility] ALP [Catalytic activity/Vol] 121 U/L High 46 - 116 U/L [facility] ALT [Catalytic activity/Vol] 79 U/L High 14 - 59 U/L [facility] AST [Catalytic activity/Vol] 43 U/L High 15 - 37 U/L [facility] Bilirubin [Mass/Vol] 0.4 mg/dL 0.2 - 1 .0 mg/dL [facility] Bilirubin.indirect [Mass/Vol] 0.1 mg/dL 0.0 - 0.2 mg/dL [facility] Globulin (S) [Mass/Vol] 4.1 g/dL [facility] Interpretation and review of laboratory results Abnormal [facility] Protein [Mass/Vol] 7.6 g/dL 6.4 - 8.2 g/dL [facility] Albumin [Mass/Vol] 3.6 g/dL 3.4 - 5.0 g/dL [facility] ALBUMIN GLOBULIN RATIO 0.9 [facility] ALP [Catalytic activity/Vol] 111 U/L 46 - 116 U/L [facility] ALT [Catalytic activity/Vol] 110 U/L High 14 - 59 U/L [facility] AST [Catalytic activity/Vol] 61 U/L High 15 - 37 U/L [facility] Bilirubin [Mass/Vol] 0.5 mg/dL 0.2 - 1 .0 mg/dL [facility] Bilirubin.indirect [Mass/Vol] 0.1 mg/dL 0.0 - 0.2 mg/dL [facility] Globulin (S) [Mass/Vol] 4.2 g/dL [facility] Interpretation and review of laboratory results Abnormal [facility] Protein [Mass/Vol] 7.8 g/dL 6.4 - 8.2 g/dL [facility] CBC W Auto Differential pane l (Bld)on 05-08-2024 Basophils (Bld) [#/Vol] 0.06 x10*3/uL Normal 0.00-0.10 [facility] Comment on above: Performed By: #### 5 7021-8 #### ASHLY Cobb ([id number]) [facility] ([facility]) [address] [place] [address] Basophils/100 WBC (Bld) 0.8 % Normal 0.0-2.0 [facility] Comment on above: Performed By: #### 5 7021-8 #### ASHLY Cobb (05256) [facility] ([facility]) [address] [place] [address] Eosinophils (Bld) [#/Vol] 0.16 x10*3/uL Normal 0.00-0.70 [facility] Comment on above: Performed By: #### 5 7021-8 #### ASHLY Cobb (80609) [facility] ([facility]) [address] [place] [address] Eosinophils/100 WBC (Bld) 2.1 % Normal 0.0-6.0 [facility] Comment on above: Performed By: #### 5 7021-8 #### ASHLY Cobb (88846) [facility] ([facility]) [address] [place] [address] Erythrocyte distribution width (RBC) [Ratio] 13.5 % Normal 11.5-14.5 [facility] Comment on above: Performed By: #### 5 7021-8 #### ASHLY Cobb (02438) [facility] ([facility]) [address] [place] [address] Hematocrit (Bld) [Volume fraction] 41.8 % Normal 36.0-46.0 [facility] Comment on above: Performed By: #### 5 7021-8 #### ASHLY Cobb (22187) [facility] ([facility]) [address] [place] [address] Hemoglobin (Bld) [Mass/Vol] 13.2 g/dL Normal 12.0-16.0 [facility] Comment on above: Performed By: #### 5 7021-8 #### ASHLY Cobb (72041) [facility] ([facility]) [address] [place] [address] Immature granulocytes (Bld) [#/Vol] 0.04 x10*3/uL Normal 0.00-0.70 [facility] Comment on above: Performed By: #### 5 7021-8 #### ASHLY Cobb (05782) [facility] ([facility]) [address] [place] [address] Immature granulocytes/100 WBC (Bld) 0.5 % Normal 0.0-0.9 [facility] Comment on above: Result Comment: Rea ture Granulocyte Count (IG) includes promyelocytes, myelocytes and metamyelocytes but does not include bands. Percent differential counts (%) should be interpreted in the context of the absolute cell counts (cells/UL). Performed By: #### 5 7021-8 #### ASHLY Cobb (87442) [facility] ([facility]) [address] [place] [address] Lymphocytes (Bld) [#/Vol] 2.60 x10*3/uL Normal 1.20-4.80 [facility] Comment on above: Performed By: #### 5 7021-8 #### ASHLY Cobb (06273) [facility] ([facility]) [address] [facility] [facility] [place] [address] Lymphocytes/100 WBC (Bld) 33.7 % Normal 13.0-44.0 [facility] Comment on above: Performed By: #### 5 7021-8 #### ASHLY Cobb (57631) [facility] ([facility]) [address] [place] [address] MCH (RBC) [Entitic mass] 29.6 pg Normal 26.0-34.0 [facility] Comment on above: Performed By: #### 5 7021-8 #### ASHLY Cobb (86913) [facility] ([facility]) [address] [place] [address] MCHC (RBC) [Mass/Vol] 31.6 g/dL Low 32.0-36.0 [facility] Comment on above: Performed By: #### 5 7021-8 #### ASHLY Cobb (90289) [facility] ([facility]) [address] [place] [address] MCV (RBC) [Entitic vol] 94 fL Normal 80-100 [facility] Comment on above: Performed By: #### 5 7021-8 #### ASHLY Cobb (65149) [facility] ([facility]) [address] [place] [address] Monocytes (Bld) [#/Vol] 0.84 x10*3/uL Normal 0.10-1.00 [facility] Comment on above: Performed By: #### 5 7021-8 #### ASHLY Cobb (67210) [facility] ([facility]) [address] [place] [address] Monocytes/100 WBC (Bld) 10.9 % Normal 2.0-10.0 [facility] Comment on above: Performed By: #### 5 7021-8 #### ASHLY Cobb (00845) [facility] ([facility]) [address] [facility] [place] [address] Neutrophils (Bld) [#/Vol] 4.02 x10*3/uL Normal 1.20-7.70 [facility] Comment on above: Result Comment: Perc ent differential counts (%) should be interpreted in the context of the absolute cell counts (cells/uL). Performed By: #### 5 7021-8 #### ASHLY Cobb (71035) [facility] ([facility]) [address] [facility] [address] Neutrophils/100 WBC (Bld) 52.0 % Normal 40.0-80.0 [facility] Comment on above: Performed By: #### 5 7021-8 #### ASHLY Cobb (33841) [facility] ([facility]) [address] [place] [address] Nucleated RBC/100 WBC (Bld) [Ratio] 0.0 /100 WBCs Normal 0.0-0.0 [facility] Comment on above: Performed By: #### 5 7021-8 #### ASHLY Cobb (38947) [facility] ([facility]) [address] [facility] [place] [address] Platelets (Bld) [#/Vol] 348 x10*3/uL Normal 150-450 [facility] Comment on above: Performed By: #### 5 7021-8 #### ASHLY Cobb (41959) [facility] ([facility]) [address] [facility] [place] [address] RBC (Bld) [#/Vol] 4.46 x10*6/uL Normal 4.00-5.20 [facility] Comment on above: Performed By: #### 5 7021-8 #### ASHLY Cobb (15968) [facility] ([facility]) [address] [place] [address] WBC (Bld) [#/Vol] 7.7 x10*3/uL Normal 4.4-11.3 [facility] Comment on above: Performed By: #### 5 7021-8 #### ASHLY Cobb (86000) [facility] ([facility]) [address] [place] [address] Comprehensive metabolic 2000 panelon 05-08-2024 Albumin BCP dye [Mass/Vol] 4.0 g/dL Normal 3.4-5.0 [facility] Comment on above: Performed By: #### 2 4323-8 #### ASHLY Cobb (50965) [facility] ([facility]) [address] [facility] [place] [address] ALP [Catalytic activity/Vol] 127 U/L High 33-110 [facility] Comment on above: Performed By: #### 2 4323-8 #### ASHLY Cobb (37906) [facility] ([facility]) [address] [place] [address] ALT With P-5'-P [Catalytic activity/Vol] 34 U/L Normal 7-45 [facility] Comment on above: Result Comment: Suzanne ents treated with Sulfasalazine may generate falsely decreased results for ALT. Performed By: #### 2 4323-8 #### ASHLY Cobb (73970) [facility] ([facility]) [address] [facility] [place] [address] Anion gap [Moles/Vol] 12 mmol/L Normal 10-20 [facility] Comment on above: Performed By: #### 2 4323-8 #### ASHLY Cobb (80485) [facility] ([facility]) [address] [place] [address] AST With P-5'-P [Catalytic activity/Vol] 23 U/L Normal 9-39 [facility] Comment on above: Performed By: #### 2 4323-8 #### ASHLY Cobb (11831) [facility] ([facility]) [address] [place] [address] Bilirubin [Mass/Vol] 0.4 mg/dL Normal 0.0-1.2 [facility] Comment on above: Performed By: #### 2 4323-8 #### ASHLY Cobb (94650) [facility] ([facility]) [address] [place] [address] Calcium [Mass/Vol] 9.3 mg/dL Normal 8.6-10.3 [facility] Comment on above: Performed By: #### 2 4323-8 #### ASHLY Cobb (93887) [facility] ([facility]) [address] [place] [address] Chloride [Moles/Vol] 103 mmol/L Normal 98-107 [facility] Comment on above: Performed By: #### 2 4323-8 #### ASHLY Cobb (15291) [facility] ([facility]) [address] [place] [address] CO2 [Moles/Vol] 30 mmol/L Normal 21-32 [facility] Comment on above: Performed By: #### 2 4323-8 #### ASHLY Cobb (68747) [facility] ([facility]) [address] [place] [address] Creatinine [Mass/Vol] 0.83 mg/dL Normal 0.50-1.05 [facility] Comment on above: Performed By: #### 2 4323-8 #### ASHLY Cobb (69895) [facility] ([facility]) [address] [place] [address] Glomerular filtration rate/1.73 sq M.predicted 82 mL/min/1.73m*2 Normal >60 [facility] Comment on above: Result Comment: Calc ulations of estimated GFR are performed using the 2020 CKD-EPI Study Refit equation without the race variable for the IDMS-Traceable creatinine methods. https://jasn.asnjournals.org/content//ASN.77683 98942 Performed By: #### 2 4323-8 #### ASHLY Cobb (28185) [facility] ([facility]) [address] [place] [address] Glucose [Mass/Vol] 99 mg/dL Normal 74-99 [facility] Comment on above: Performed By: #### 2 4323-8 #### ASHLY Cobb (25305) [facility] ([facility]) [address] [place] [address] Potassium [Moles/Vol] 4.5 mmol/L Normal 3.5-5.3 [facility] Comment on above: Performed By: #### 2 4323-8 #### ASHLY Cobb (78154) [facility] ([facility]) [address] [place] [address] Protein [Mass/Vol] 6.8 g/dL Normal 6.4-8.2 [facility] Comment on above: Performed By: #### 2 4323-8 #### ASHLY Cobb (46883) [facility] ([facility]) [address] [place] [address] Sodium [Moles/Vol] 140 mmol/L Normal 136-145 [facility] Comment on above: Performed By: #### 2 4323-8 #### ASHLY Cobb (24697) [facility] ([facility]) [address] [place] [address] Urea nitrogen [Mass/Vol] 15 mg/dL Normal 6-23 [facility] Comment on above: Performed By: #### 2 4323-8 #### ASHLY Cobb (61391) [facility] ([facility]) [address] [place] [address] Ambulatory Visit Summaryon 0 04-26-2024 Ambulatory Visit Summary Ambulatory Visit Summary NITHYA DE DIOS :1965 Visit Date:04/26/2024 Ambulatory Visit Instructions Your Diagnosis Non-smoker BMI 34.0-34.9,adult Your Care Team Attending Physician - GILBERT WATSON CNP Primary Care Physician - BRANT URIAS, This Is Your Medications List calcium citrate [...] EDT With: Eh URIAS, Vitaly Hernandes Where: [facility] [address] [place] [address] [place], [place] [id number]- Medications What How Much When Why Instructions [...] choosing us for your care. Normal [facility] Family Medicine Office/Clini c Noteon 04-26-2024 Family Medicine Office/Clinic Note Family Medicine Office/Clinic Note HPI Staff Nithya is a 59 year old female presenting with wanting to establish care Establish Care: History: Any previous diagnosis: colongolitis, [place], Hypothyroidism History of seeing any specialist: [facility], When was your last doctors visit: 6 months ago Last provider: Dr. Guo Any recent labs: a month ago. ( [facility]) or [facility] Maintenance UTD: Colonoscopy: 3 years ago Mammogram: 04/24/24 Pelvic/Pap: last week had this done Acute: Current issues/complaints: none History of Present Illness 59 year old patient presents today to establish care. She states she was a previous patient of Dr. 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 She reports she had her ovaries & fallopian tubes surgically removed in January 2024.She is retired from [email or web address] and reports her son will be coming [...] GILBERT WATSON CNP, FAM Within 1 year [address] [place] [address] Business (1) Additional Instructions: Well adult [...] 50,000 intl units (1.25 mg) oral capsule, 47809 [employer], Oral, qWeek, 3 refills Allergies sulfa [...] 11/25/2022 Recorde (more content not included)... Normal [facility] Comment on above: Result Comment: Elec tronically Signed By: GILBERT WATSON CNP\.br\Date and Time Signed: 04/26/24 12:43 EDT BI MAMMO BILATERAL SCREENING TOMOSYNTHESISon 04-24-2024 BI MAMMO BILATERAL SCREENING TOMOSYNTHESIS Interpreted By: Jasvir Bass and Stephens Katherine STUDY: BI MAMMO BILATERAL SCREENING TOMOSYNTHESIS; 04/24/2024 2:02 pm ACCESSION NUMBER(S): [id number] ORDERING CLINICIAN: KELY CRAIN INDICATION: Screening. BRCA [...] information regarding high risk consultation, please call [phone]. For any future breast imaging appointments, please call [phone] ([phone]). I personally reviewed the images/study and I agree with Cassandra Escamilla DO's (residential collections) findings as stated. This study was interpreted at [place], [place]. MACRO: None Signed by: Jasvir Bass 04/24/2024 3:39 PM Dictation workstation: [id number] Normal [facility] Provider Letteron 03-15-2024 Provider Letter March 15, 2024 NITHYA DE DIOS [address] [place] [address] [place] [address] : 1965 Dear Nithya, We have been [...] your prompt attention to this matter. Sincerely, [facility] [phone] [facility] Physician Referralon 024 Physician Referral [id number] [facility] Ambulatory Visit Summaryon 0 01-18-2024 Ambulatory Visit [...] AM EDT With: Vitaly Stauffer MD Where: [facility] Normal [facility] Ambulatory Visit Summary NITHYA DE DIOS :1965 [...] Someone Will Contact You Regarding These Appointments [facility] External Ambulatory Referral, Gastroenterology, 01/18/24 11:28:00 EDT, Primary biliary cholangitis Medications What How Much When Why Instructions New fenofibrate (fenofibrate 145 mg Tab) 1/2 tab(s) By Mouth Every other day Primary biliary cholangitis Duration: 90 Days Refills: [address] [facility] [id number] New ursodiol (ursodiol 500 mg Tab) 1 Tablets By Mouth 2 times a day Duration: 30 Days Refills: 11 with food Pickup at [facility] [id number] Unchanged alendronate (alendronate 10 mg Tab) 1 [...] physician if questions or concerns Pharmacy Information [facility] [id number]: [address] [place], [place] [id number] [phone] Allergies sulfa drugs (allergy) Problems Ongoing - [...] choosing us for your care. Normal [facility] Gastroenterology Office/Clin ic Noteon 01-18-2024 Gastroenterology Office/Clinic [...] first with Dr. Meza given his the acute care nurse practitioner taking care of her She also tested [...] and st (more content not included)... Normal [facility] Comment on above: Result Comment: Elec tronically Signed By: Vitaly Stauffer MD\.br\Date and Time Signed: 01/18/24 11:48 EDT\.br\Electronically Co-Signed By: Verenice Hair MA\.br\Date and Time Co-Signed: 01/18/24 11:38 EDT MG Breast - unilateral Singl e view for clip placementon 12-21-2023 Radiology Study observation (narrative) [facility] Work Phone: MG Breast Viewson 12-21-2023 Radiology Study observation (narrative) [facility] Work Phone: No Panel Informationon 12-20 Status post MRI guided vacuum-assisted core needle biopsy of right breast mass followed by placement of tissue marker. Pathology is pending. POST PROCEDURE MAMMOGRAM FOR MARKER PLACEMENT. I personally reviewed the images/study and I agree with Dr. Patel Dickson and the findings as stated. MACRO: None Signed by: Jasvir Bass 12/21/2023 11:09 AM Dictation workstation: [id number] MMODAL Interpreted By: Jasvir Bass, and Yessi Sweeney STUDY: BI MR BREAST VACUUM ASSISTED BIOPSY; BI BREAST BIOPSY CLIP IMAGING; 12/21/2023 10:21 am; 12/21/2023 10:31 am ACCESSION NUMBER(S): [id number]; [id number] ORDERING CLINICIAN: KELY CRAIN INDICATION: The patient's [...] Patel Dickson, a radiology nurse and an photo technologist were present. PROCEDURE: The patient was placed on the MRI scanner within the breast coil with mild compression on the right breast. T1 weighted fat saturation axial images were obtained before and after administration of 17 mL intravenous Dotarem. The enhancing area of concern was identified. The [employer] software program was used to localize the [...] 10:21 am; 12/21/2023 10:31 am ACCESSION NUMBER(S): [id number]; [id number] ORDERING CLINICIAN: KELY CRAIN INDICATION: The patient's [...] site and type of procedure. Drs. Jasvir Dickson, a radiology nurse and an photo technologist were present. PROCEDURE: The patient was placed on the MRI scanner within the breast coil with mild compression on the right breast. T1 weighted fat saturation axial images were obtained before and after administration of 17 mL intravenous Dotarem. The enhancing area of concern was identified. The [employer] software program was used to localize the [...] Jasvir Bass 12/21/2023 11:09 AM Dictation workstation: [id number] [facility] Work Phone: No Panel InformationOrdered By: Jasvir Bass on 12-21-2023 [facility] Work Phone: US Breast - right limitedOrd ered By: Lia Bunch on 12-06-2023 Interpretation and review of laboratory results Abnormal [facility] Work Phone: [facility] Work Phone: US Breast - right limitedon 12-06-2023 Possible sonographic correlate of the enhancing right breast mass previously noted on breast MRI 11/24/2023. Due to its subtle sonographic appearance, further evaluation with surgical consultation and MRI guided biopsy is recommended. Dr. Garett Quevedo explained the findings and recommendations to the patient at the time of exam and Kely Crain [employer]EL[employer]. A message was sent to the referring practitioner at the time of this dictation regarding these critical findings. A pre-procedure form was filled out. Method of Detection: Category Smri - Screening MRI BI-RADS CATEGORY: BI-RADS Category: 4 Suspicious. Recommendation: Surgical Consultation and Biopsy. Recommended Date: Immediate. Laterality: Right. For any future breast imaging appointments, please call [phone]). I personally reviewed the images/study and I agree with the findings as stated by fellow physician, Dr. Garett Quevedo. MACRO: Dr. Garett Quevedo discussed the significance and urgency of this critical finding in person with KELY PARAS on 12/06/2023 at 12:55 pm. (-RCF-) Findings: See findings. Signed by: Lia Bunch 12/06/2023 2:25 PM Dictation workstation: [id number] [facility] MMODAL Interpreted By: Lia Bunch and Avery Ross STUDY: BI US BREAST LIMITED RIGHT; 12/06/2023 1:04 pm ACCESSION NUMBER(S): [id number] ORDERING CLINICIAN: KELY CRAIN INDICATION: MRI directed ultrasound of an enhancing right breast mass. BRCA 2 gene mutation. Family history of breast cancer. COMPARISON: Correlation with breast MRI 11/24/2023 and mammogram 03/30/2023. FINDINGS: A targeted ultrasound of the entire lower outer right breast was performed by a registered barber tool sharpener and Dr. Garett Quevedo using elastography. An [...] LIMITED RIGHT; 12/06/2023 1:04 pm ACCESSION NUMBER(S): [id number] ORDERING CLINICIAN: KELY CRAIN INDICATION: MRI directed ultrasound of an enhancing right breast mass. BRCA 2 gene mutation. Family history of breast cancer. COMPARISON: Correlation with breast MRI 11/24/2023 and mammogram 03/30/2023. FINDINGS: A targeted ultrasound of the entire lower outer right breast was performed by a registered barber tool sharpener and Dr. Garett Quevedo using elastography. An [...] the time of exam and Kely Crain [employer] DEVELOPER. A message was sent to the referring practitioner at the time of this dictation regarding these critical findings. A pre-procedure form was filled out. Method of Detection: Category Smri - Screening MRI BI-RADS CATEGORY: BI-RADS Category: 4 Suspicious. Recommendation: Surgical Consultation and Biopsy. Recommended Date: Immediate. Laterality: Right. For any future breast imaging appointments, please call [phone]). I personally reviewed the images/study and I agree with the findings as stated by fellow physician, Dr. Garett Quevedo. MACRO: Dr. Garett Quevedo discussed the significance and urgency of this critical finding in person with KELY CRAIN on 12/06/2023 at 12:55 pm. (-RCF-) Findings: See findings. Signed by: Lia Bunch 12/06/2023 2:25 PM Dictation workstation: [id number] [facility] Work Phone: Radiology Study observation (narrative) [facility] Work Phone: MR Breast - bilateral W cont rast IVOrdered By: Lia Bunch on 11-25-2023 Interpretation and review of laboratory results Abnormal [facility] Work Phone: [facility] Work Phone: MR Breast - bilateral W cont rast Lelia 11-25-2023 Interpreted By: Lia Bunch and Avery Ross STUDY: BI MR BREAST BILATERAL WITH CONTRAST FULL PROTOCOL; 11/24/2023 10:13 am ACCESSION NUMBER(S): [id number] ORDERING CLINICIAN: KELY CRAIN INDICATION: High-risk supplemental [...] independent workstation, 3-D images were formulated using [employer] including time enhancement curves, subtraction images and [...] FULL PROTOCOL; 11/24/2023 10:13 am ACCESSION NUMBER(S): [id number] ORDERING CLINICIAN: KELY CRAIN INDICATION: High-risk supplemental [...] independent workstation, 3-D images were formulated using [employer] including time enhancement curves, subtraction images and [...] dictation regarding these critical findings using the [employer] notification system. A pre-procedure form was filled out. 2. No MRI evidence of malignancy in the left breast. Method of Detection: Category Smri - Screening MRI BI-RADS CATEGORY: BI-RADS Category: 4 Suspicious. Recommendation: Surgical Consultation and Biopsy. Recommended Date: Immediate. Laterality: Right. For any future breast imaging appointments, please call [phone]). MACRO: Critical Finding: Breast Imaging Abnormality. Notification was initiated on 11/25/2023 at 1:43 pm by Garett Quevedo. (-YCF-) Instructions: Surgical Consultation and Imaging Guided Biopsy. Signed by: Lia Bunch 11/25/2023 2:02 PM Dictation workstation: [id number] [facility] Work Phone: MR Breast - bilateral W cont rast Lelia 11-24-2023 Radiology Study observation (narrative) [facility] Work Phone: Study Interpretation of outs keira studyon 11-21-2023 [...] EDT With: Eh URIAS, Vitaly Hernandes Where: [facility] Normal [facility] Gastroenterology Office/Clin ic Noteon 11-14-2023 Gastroenterology Office/Clinic [...] worsening diarrhea. She is following up with [facility] hepatology also. 2. Vitamin D deficiency [...] DUODENUM: Normal Vit D level 10/24/23 @ [facility]: 56.2 CMP 10/26/23 @ [place]: All normal besides BUN (H) 19.0 and [...] first with Dr. Meza given his the acute care nurse practitioner taking care of her She also tested [...] be repea (more content not included)... Normal [facility] Comment on above: Result Comment: Elec tronically Signed By: Eh URIAS, Vitaly Hernandes\.br\Date and Time Signed: 11/14/23 12:07 EST Auth for Release of Medical Recordson 11-08-2023 Auth for Release of Medical Records [id number] Normal [facility] Endoscopic Ultrasound (Upper )on 10-06-2023 Table formatting [...] PM Specimens No specimens collected Procedure Location [facility] [address] [facility] [address] [place] [address] [address] Department Of [place] [address] Procedure Provider Vance Baires MD [facility] Work Phone: [facility] Work Phone: Radiology Study observation (narrative) [facility] Work Phone: [facility] 05-05-2023 [facility] Telephone (GASTA5) NITHYA DE DIOS ([id number]) 1965 F Date Time Provider Department 05/05/23 YAS MEZA GASTA5 During your visit today, we recorded the following information about you: Annette Molina RN 05/05/2023 12:16 PM Signed Pt sent the following MCM regarding US and fibroscan results: I didn?t see these results in my chart for the [facility], so I am sending them. Can [...] Encounter Status:Closed by YAS MEZA on 05/06/23 [facility] Kely 2023 CNPN Telephone (GASTA5) VANITHYA ([id number]) 1965 F Date Time Provider Department 04/07/23 YAS MEZA During your visit today, we [...] (HCC) [K74.3] Order(s):US ABD RIGHT UPPER QUADRANT [[id number]] Order #: [id number] FUTURE US ELASTOGRAPHY LIVER [[id number]] Order #: [id number] FUTURE Prescriptions as of 2023 - alendronate [...] Encounter Status:Closed by YAS MEZA on 04/07/23 [facility] NITHYA DE DIOS ([id number]) 1965 F Date Time Provider Department 01/04/23 YAS MEZA GASTA5 During your visit today, we recorded the following information about you: Constanza Corona RN 01/04/2023 3:19 PM Signed Received the following [employer] message: Dr. Paradise Ortiz wanted to see [...] AM Signed Dr Rivera response sent via [employer] message. Constanza Corona RN January 05, 2023 [...] Status:Closed by CONSTANZA CORONA on 01/04/23 Normal [facility] LIVER PROFILEon 01-01-2023 Albumin [Mass/Vol] 3.6 g/dL Normal 3.4-5.0 [facility] Comment on above: Performed By: #### L IVER #### [facility] [address] [address] [address] Sincere Wood Albumin/Globulin [Mass ratio] 0.9 {ratio} Normal [facility] Comment on above: Performed By: #### L IVER #### [facility] [address] [place] [address] Dr. Sincere Wood ALP [Catalytic activity/Vol] 166 U/L Critically high 46-116 [facility] Comment on above: Performed By: #### L IVER #### [facility] [address] [place] [address] Dr. Sincere Wood ALT [Catalytic activity/Vol] 49 U/L Normal 14-59 [facility] Comment on above: Performed By: #### L IVER #### [facility] [address] [place] [address] Dr. Sincere Wood AST [Catalytic activity/Vol] 27 U/L Normal 15-37 [facility] Comment on above: Performed By: #### L IVER #### [facility] [address] [address] [address] Sincere Wood BILI, CONJUGATED 0.1 mg/dL Normal 0.0-0.2 [facility] Comment on above: Performed By: #### L IVER #### [facility] [address] [place] [address] Dr. Sincere Wood Bilirubin [Mass/Vol] 0.3 mg/dL Normal 0.2-1.0 [facility] Comment on above: Performed By: #### L IVER #### [facility] [address] [place] [address] Dr. Sincere Wood Globulin (S) [Mass/Vol] 4.0 g/dL Normal [facility] Comment on above: Performed By: #### L IVER #### [facility] [address] [place] [address] Dr. Sincere Wood Protein [Mass/Vol] 7.6 g/dL Normal 6.4-8.2 [facility] Comment on above: Performed By: #### L IVER #### [facility] [address] [place] [address] Dr. Sincere Wood MMR IMMUNITYon 11-24-2022 Mumps Abs, IgG 19.7 AU/mL Normal Immune >10.9 [facility] Comment on above: Result Comment: Nega tive <9.0 Equivocal 9.0 - 10.9 Positive >10.9 A positive result generally indicates past exposure to Mumps virus or previous vaccination. Performed By: #### M MRIMMU #### [facility] [address] [place] [address] Dr. Sincere Wood Rubella Antibodies, IgG <0.90 Critically low Immune >0.99 [facility] Comment on above: Result Comment: Non- immune <0.90 Equivocal 0.90 - 0.99 Immune >0.99 Performed By: #### M MRIMMU #### [facility] [address] [place] [address] Dr. Sincere Wood Rubeola Ab, IgG 23.4 AU/mL Normal Immune >16.4 The [facility] Comment on above: Result Comment: Nega tive <13.5 Equivocal 13.5 - 16.4 Positive >16.4 Presence of antibodies to Rubeola is presumptive evidence of immunity except when acute infection is suspected. Performed By: #### M MRIMMU #### [facility] [address] [place] [address] Dr. Sincere Wood FREE T3on 10-26-2022 FREE T3 1.72 pg/mlL Critically low 2.18-3.98 [facility] Comment on above: Performed By: #### Torie STRABLAS #### [facility] [address] [place] [address] Dr. iSncere Wood FREE T4on 10-26-2022 Free T4 [Mass/Vol] 1.62 ng/dL Critically high 0.76-1.46 T [facility] Comment on above: Performed By: #### F T4 #### [facility] [address] [place] [address] Dr. Sincere Wood TSHon 10-26-2022 TSH 3.966 uIU/mL Critically high 0.358-3.740 [facility] Comment on above: Performed By: #### E STRADI #### [facility] [address] [place] [address] Dr. Sincere Wood ESTRADIOLon 09-23-2022 Estradiol 10.5 pg/mL Normal [facility] Comment on above: Result Comment: Adul t Female: Follicular phase 12.5 - 166.0 Ovulation phase 85.8 - 498.0 Luteal phase 43.8 - 211.0 Postmenopausal <6.0 - 54.7 1st trimester 215.0 - >4300.0 Ana ECLIA methodology Performed By: #### E STRADI #### [facility] [address] [place] [address] Dr. Sincere Wood FSHon 09-23-2022 FSH 56.5 mIU/mL Normal [facility] Comment on above: Result Comment: Adul t Female: Follicular phase 3.5 - 12.5 Ovulation phase 4.7 - 21.5 Luteal phase 1.7 - 7.7 Postmenopausal 25.8 - 134.8 Performed By: #### E STRADI #### [facility] [address] [place] [address] Dr. Sincere Wood TESTOSTERONE, TOTALon 2021 Testosterone [Mass/Vol] 20 ng/dL Normal 4-50 [facility] Comment on above: Performed By: #### E STRADI #### [facility] [address] [place] [address] Dr. Sincere Wood CBC AUTO DIFFon 09-22-2022 BASO # 0.0 103/ul Normal 0.0-0.1 [facility] Comment on above: Performed By: #### C BC #### [facility] [address] [place] [address] Dr. Sincere Wood Basophils/100 WBC (Bld) 0.5 % Normal 0.2-2.0 [facility] Comment on above: Performed By: #### C BC #### [facility] [address] [place] [address] Dr. Sincere Wood EO # 0.2 103/ul Normal 0.0-0.7 [facility] Comment on above: Performed By: #### C BC #### [facility] [address] [place] [address] Dr. Sincere Wood Eosinophils/100 WBC (Bld) 3.4 % Normal 0.9-7.0 [facility] Comment on above: Performed By: #### C BC #### [facility] [address] [place] [address] Dr. Sincere Wood Erythrocyte distribution width (RBC) [Ratio] 12.3 % Normal 11.0-15.0 [facility] Comment on above: Performed By: #### C BC #### [facility] [address] [place] [address] Dr. Sincere Wood Hematocrit (Bld) [Volume fraction] 36.8 % Normal 36.0-48.0 [facility] Comment on above: Performed By: #### C BC #### [facility] [address] [place] [address] Dr. Sincere Wood Hemoglobin (Bld) [Mass/Vol] 12.3 g/dL Normal 12.0-16.0 [facility] Comment on above: Performed By: #### C BC #### [facility] [address] [place] [address] Dr. Sincere Wood IG # 0.02 10e3/ul Normal 0.00-0.03 [facility] Comment on above: Performed By: #### C BC #### [facility] [address] [place] [address] Dr. Sincere Wood IG % 0.4 % Normal 0.0-0.5 [facility] Comment on above: Performed By: #### C BC #### [facility] [address] [place] [address] Dr. Sincere Wood LYMPH # 2.2 103/ul Normal 1.2-3.8 [facility] Comment on above: Performed By: #### C BC #### [facility] [address] [place] [address] Dr. Sincere Wood Lymphocytes/100 WBC (Bld) 38.4 % Normal 20.5-60.0 [facility] Comment on above: Performed By: #### C BC #### [facility] [address] [place] [address] Dr. Sincere Wood MANUAL DIFF REQ NO Normal [facility] Comment on above: Performed By: #### C BC #### [facility] [address] [place] [address] Dr. Sincere Wood MCH (RBC) [Entitic mass] 29.6 pg Normal 26.7-34.0 [facility] Comment on above: Performed By: #### C BC #### [facility] [address] [place] [address] Dr. Sincere Wood MCHC (RBC) [Mass/Vol] 33.4 g/dL Normal 29.9-35.2 [facility] Comment on above: Performed By: #### C BC #### [facility] [address] [place] [address] Dr. Sincere Wood MCV (RBC) [Entitic vol] 88.7 fL Normal 81.0-99.0 [facility] Comment on above: Performed By: #### C BC #### [facility] [address] [place] [address] Dr. Sincere Wood MONO # 0.5 103/ul Normal 0.3-0.8 [facility] Comment on above: Performed By: #### C BC #### [facility] [address] [place] [address] Dr. Sincere Wood Monocytes/100 WBC (Bld) 9.1 % Normal 1.7-12.0 [facility] Comment on above: Performed By: #### C BC #### [facility] [address] [place] [address] Dr. Sincere Wood NEUT # 2.7 103/ul Normal 1.4-6.5 [facility] Comment on above: Performed By: #### C BC #### [facility] [address] [place] [address] Dr. Sincere Wood Neutrophils/100 WBC (Bld) 48.2 % Normal 43.0-75.0 [facility] Comment on above: Performed By: #### C BC #### [facility] [address] [place] [address] Dr. Sincere Wood Platelet mean volume (Bld) [Entitic vol] 10.0 fL Normal 9.5-13.5 [facility] Comment on above: Performed By: #### C BC #### [facility] [address] [place] [address] Dr. Sincere Wood PLT 302 103/ul Normal 150-450 [facility] Comment on above: Performed By: #### C BC #### [facility] [address] [place] [address] Dr. Sincere Wood RBC 4.15 106/ul Critically low 4.20-5.40 [facility] Comment on above: Performed By: #### C BC #### [facility] [address] [place] [address] Dr. Sincere Wood WBC 5.6 103/ul Normal 4.0-11.0 [facility] Comment on above: Performed By: #### C BC #### [facility] [address] [place] [address] Dr. Sincere Wood PROF 14(COMP METB)on 022 Albumin [Mass/Vol] 3.6 g/dL Normal 3.4-5.0 [facility] Comment on above: Performed By: #### C MP #### [facility] [address] [place] [address] Dr. Sincere Wood Albumin/Globulin [Mass ratio] 0.9 {ratio} Normal [facility] Comment on above: Performed By: #### C MP #### [facility] [address] [place] [address] Dr. Sincere Wood ALP [Catalytic activity/Vol] 153 U/L Critically high 46-116 [facility] Comment on above: Performed By: #### C MP #### [facility] [address] [address] [address] Sincere Wood ALT [Catalytic activity/Vol] 53 U/L Normal 14-59 [facility] Comment on above: Performed By: #### C MP #### [facility] [address] [address] [address] Sincere Wood Anion gap [Moles/Vol] 11.6 mmol/L Normal [facility] Comment on above: Performed By: #### C MP #### [facility] [address] [address] [address] Sincere Wood AST [Catalytic activity/Vol] 30 U/L Normal 15-37 [facility] Comment on above: Performed By: #### C MP #### [facility] [address] [address] [address] Sincere Wood Bilirubin [Mass/Vol] 0.3 mg/dL Normal 0.2-1.0 [facility] Comment on above: Performed By: #### C MP #### [facility] [address] [address] [address] Sincere Wood Calcium [Mass/Vol] 9.1 mg/dL Normal 8.5-10.1 [facility] Comment on above: Performed By: #### C MP #### [facility] [address] [address] [address] Sincere Wood Chloride [Moles/Vol] 102 mmol/L Normal 98-107 [facility] Comment on above: Performed By: #### C MP #### [facility] [address] [address] [address] Sincere Wood CO2 [Moles/Vol] 28.6 mmol/L Normal 21.0-32.0 [facility] Comment on above: Performed By: #### C MP #### [facility] [address] [address] [address] Sincere Wood Creatinine [Mass/Vol] 0.85 mg/dL Normal 0.55-1.02 [facility] Comment on above: Performed By: #### C MP #### [facility] [address] [address] [address] Sincere Wood EGFR-AF KENYAN >60 Normal >=60 [facility] Comment on above: Performed By: #### C MP #### [facility] [address] [address] [address] Sincere Wood EGFR-NON AF KENYAN >60 Normal >=60 [facility] Comment on above: Performed By: #### C MP #### [facility] [address] [address] [address] Sincere Wood Globulin (S) [Mass/Vol] 4.0 g/dL Normal [facility] Comment on above: Performed By: #### C MP #### [facility] [address] [address] [address] Sincere Wood Glucose [Mass/Vol] 89 mg/dL Normal 74-106 [facility] Comment on above: Performed By: #### C MP #### [facility] [address] [address] [address] Sincere Wood Potassium [Moles/Vol] 4.2 mmol/L Normal 3.5-5.1 [facility] Comment on above: Performed By: #### C MP #### [facility] [address] [address] [address] Sincere Wood Protein [Mass/Vol] 7.6 g/dL Normal 6.4-8.2 [facility] Comment on above: Performed By: #### C MP #### [facility] [address] [address] [address] Sincere Wood Sodium [Moles/Vol] 138 mmol/L Normal 136-145 [facility] Comment on above: Performed By: #### C MP #### [facility] [address] [address] [address] Sincere Wood Urea nitrogen [Mass/Vol] 16.0 mg/dL Normal 7.0-18.0 [facility] Comment on above: Performed By: #### C MP #### [facility] [address] [place] [address] Dr. Sincere Wood Urea nitrogen/Creatinine [Mass ratio] 18.8 mg/mg Normal [facility] Comment on above: Performed By: #### C MP #### [facility] [address] [place] [address] Dr. Sincere Wood PROF 14(COMP METB)on 022 Albumin [Mass/Vol] 3.6 g/dL Normal 3.4-5.0 [facility] Comment on above: Performed By: #### C MP #### [facility] [address] [place] [address] Dr. Sincere Wood Albumin/Globulin [Mass ratio] 0.9 {ratio} Normal [facility] Comment on above: Performed By: #### C MP #### [facility] [address] [place] [address] Dr. Sincere Wood ALP [Catalytic activity/Vol] 138 U/L Critically high 46-116 [facility] Comment on above: Performed By: #### C MP #### [facility] [address] [place] [address] Dr. Sincere Wood ALT [Catalytic activity/Vol] 46 U/L Normal 14-59 [facility] Comment on above: Performed By: #### C MP #### [facility] [address] [place] [address] Dr. Sincere Wood Anion gap [Moles/Vol] 13.4 mmol/L Normal [facility] Comment on above: Performed By: #### C MP #### [facility] [address] [place] [address] Dr. Sincere Wood AST [Catalytic activity/Vol] 35 U/L Normal 15-37 [facility] Comment on above: Performed By: #### C MP #### [facility] [address] [place] [address] Dr. Sincere Wood Bilirubin [Mass/Vol] 0.4 mg/dL Normal 0.2-1.0 [facility] Comment on above: Performed By: #### C MP #### [facility] [address] [place] [address] Dr. Sincere Wood Calcium [Mass/Vol] 9.1 mg/dL Normal 8.5-10.1 [facility] Comment on above: Performed By: #### C MP #### [facility] [address] [place] [address] Dr. Sincere Wood Chloride [Moles/Vol] 105 mmol/L Normal 98-107 [facility] Comment on above: Performed By: #### C MP #### [facility] [address] [place] [address] Dr. Sincere Wood CO2 [Moles/Vol] 26.2 mmol/L Normal 21.0-32.0 [facility] Comment on above: Performed By: #### C MP #### [facility] [address] [place] [address] Dr. Sincere Wood Creatinine [Mass/Vol] 0.76 mg/dL Normal 0.55-1.02 [facility] Comment on above: Performed By: #### C MP #### [facility] [address] [place] [address] Dr. Sincere Wood EGFR-AF KENYAN >60 Normal >=60 [facility] Comment on above: Performed By: #### C MP #### [facility] [address] [place] [address] Dr. Sincere Wood EGFR-NON AF KENYAN >60 Normal >=60 [facility] Comment on above: Performed By: #### C MP #### [facility] [address] [place] [address] Dr. Sincere Wood Globulin (S) [Mass/Vol] 4.0 g/dL Normal [facility] Comment on above: Performed By: #### C MP #### [facility] [address] [place] [address] Dr. Sincere Wood Glucose [Mass/Vol] 103 mg/dL Normal 74-106 [facility] Comment on above: Performed By: #### C MP #### [facility] [address] [place] [address] Dr. Sincere Wood Potassium [Moles/Vol] 4.6 mmol/L Normal 3.5-5.1 [facility] Comment on above: Performed By: #### C MP #### [facility] [address] [place], [place] [address] Dr. Sincere Wood Protein [Mass/Vol] 7.6 g/dL Normal 6.4-8.2 [facility] Comment on above: Performed By: #### C MP #### [facility] [address] [place], [place] [address] Dr. Sincere Wood Sodium [Moles/Vol] 140 mmol/L Normal 136-145 [facility] Comment on above: Performed By: #### C MP #### [facility] [address] [place], [place] [address] Dr. Sincere Wood Urea nitrogen [Mass/Vol] 21.0 mg/dL Critically high 7.0-18.0 [facility] Comment on above: Performed By: #### C MP #### [facility] [id number] Sincere Wood Urea nitrogen/Creatinine [Mass ratio] 27.6 mg/mg Normal [facility] Comment on above: Performed By: #### C MP #### [facility] [address] [place], [place] [address] Dr. Sincere Wood SCREENING MAMMOGRAM W/PRINCE, BILATERAL*on [...] VERY IMPORTANT TO YOUR HEALTH. THE CURRENT [place] [employer] GUIDELINES RECOMMENDS ANNUAL MAMMOGRAPHY BEGINNING AT AGE 41 THIS FACILITY USES A REMINDER SYSTEM TO ENSURE ALL PATIENTS RECEIVE REMINDER NOTIFICATIONS AT THE APPROPRIATE TIME BASED ON THE RECOMMENDATIONS OF THIS EXAM. Board Certified Radiologist. Accredited by the ACR and FDA. Report reported and signed by Davian Lewis on 03/29/2022 1139 Normal [facility] Specialist CBC AUTO DIFFon 02-18-2022 BASO # 0.0 103/ul Normal 0.0-0.1 [facility] Comment on above: Performed By: #### C BC #### [facility] [address] [place] [address] Dr. Sincere Wood Basophils/100 WBC (Bld) 0.7 % Normal 0.2-2.0 [facility] Comment on above: Performed By: #### C BC #### [facility] [address] [place] [address] Dr. Sincere Wood EO # 0.2 103/ul Normal 0.0-0.7 [facility] Comment on above: Performed By: #### C BC #### [facility] [address] [place] [address] Dr. Sincere Wood Eosinophils/100 WBC (Bld) 3.1 % Normal 0.9-7.0 [facility] Comment on above: Performed By: #### C BC #### [facility] [address] [place] [address] Dr. Sincere Wood Erythrocyte distribution width (RBC) [Ratio] 13.0 % Normal 11.0-15.0 [facility] Comment on above: Performed By: #### C BC #### [facility] [address] [place] [address] Dr. Sincere Wood Hematocrit (Bld) [Volume fraction] 38.8 % Normal 36.0-48.0 [facility] Comment on above: Performed By: #### C BC #### [facility] [address] [place] [address] Dr. Sincere Wood Hemoglobin (Bld) [Mass/Vol] 12.2 g/dL Normal 12.0-16.0 [facility] Comment on above: Performed By: #### C BC #### [facility] [address] [place] [address] Dr. Sincere Wood IG # 0.03 10e3/ul Normal 0.00-0.03 [facility] Comment on above: Performed By: #### C BC #### [facility] [address] [place] [address] Dr. Sincere Wood IG % 0.5 % Normal 0.0-0.5 [facility] Comment on above: Performed By: #### C BC #### [facility] [address] [place] [address] Dr. Sincere Wood LYMPH # 1.9 103/ul Normal 1.2-3.8 [facility] Comment on above: Performed By: #### C BC #### [facility] [address] [place] [address] Dr. Sincere Wood Lymphocytes/100 WBC (Bld) 34.4 % Normal 20.5-60.0 [facility] Comment on above: Performed By: #### C BC #### [facility] [address] [place] [address] Dr. Sincere Wood MANUAL DIFF REQ NO Normal [facility] Comment on above: Performed By: #### C BC #### [facility] [address] [place] [address] Dr. Sincere Wood MCH (RBC) [Entitic mass] 30.1 pg Normal 26.7-34.0 [facility] Comment on above: Performed By: #### C BC #### [facility] [address] [place] [address] Dr. Sincere Wood MCHC (RBC) [Mass/Vol] 31.4 g/dL Normal 29.9-35.2 [facility] Comment on above: Performed By: #### C BC #### [facility] [address] [place] [address] Dr. Sincere Wood MCV (RBC) [Entitic vol] 95.8 fL Normal 81.0-99.0 [facility] Comment on above: Performed By: #### C BC #### [facility] [address] [place] [address] Dr. Sincere Wood MONO # 0.5 103/ul Normal 0.3-0.8 [facility] Comment on above: Performed By: #### C BC #### [facility] [address] [place] [address] Dr. Sincere Wood Monocytes/100 WBC (Bld) 8.8 % Normal 1.7-12.0 [facility] Comment on above: Performed By: #### C BC #### [facility] [address] [address] [address] Sincere Wood NEUT # 2.9 103/ul Normal 1.4-6.5 [facility] Comment on above: Performed By: #### C BC #### [facility] [address] [address] [address] Sincere Wood Neutrophils/100 WBC (Bld) 52.5 % Normal 43.0-75.0 [facility] Comment on above: Performed By: #### C BC #### [facility] [address] [place] [address] Dr. Sincere Wood Platelet mean volume (Bld) [Entitic vol] 10.8 fL Normal 9.5-13.5 [facility] Comment on above: Performed By: #### C BC #### [facility] [address] [place] [address] Dr. Sincere Wood PLT 289 103/ul Normal 150-450 [facility] Comment on above: Performed By: #### C BC #### [facility] [address] [address] [address] Sincere Wood RBC 4.05 106/ul Critically low 4.20-5.40 [facility] Comment on above: Performed By: #### C BC #### [facility] [address] [place] [address] Dr. Sincere Wood WBC 5.6 103/ul Normal 4.0-11.0 [facility] Comment on above: Performed By: #### C BC #### [facility] [address] [place] [address] Dr. Sincere Wood GLYCOHEMOGLOBIN A1Con 2021 ADA RECOMMENDATION SEE BELOW Normal [facility] Comment on above: Result Comment: ADA RECOMMENDED LIMIT 4.0 - 6.0 ADA THERAPEUTIC TARGET < 7.0 ACTION SUGGESTED > 7.0 Performed By: #### A 1C #### [facility] [address] [place] [address] Dr. Sincere Wood Glucose [Mass/Vol] 117 mg/dL Normal [facility] Comment on above: Performed By: #### A 1C #### [facility] [address] [place] [address] Dr. Sincere Wood HbA1c (Bld) [Mass fraction] 5.7 % Normal 4.5-6.2 [facility] Comment on above: Performed By: #### A 1C #### [facility] [address] [place] [address] Dr. Sincere oWod PROF 14(COMP METB)on 022 Albumin [Mass/Vol] 3.4 g/dL Normal 3.4-5.0 [facility] Comment on above: Performed By: #### C MP #### [facility] [address] [place] [address] Dr. Sincere Wood Albumin/Globulin [Mass ratio] 0.8 {ratio} Normal [facility] Comment on above: Performed By: #### C MP #### [facility] [address] [place] [address] Dr. Sincere Wood ALP [Catalytic activity/Vol] 150 U/L Critically high 46-116 [facility] Comment on above: Performed By: #### C MP #### [facility] [address] [place] [address] Dr. Sincere Wood ALT [Catalytic activity/Vol] 85 U/L Critically high 14-59 [facility] Comment on above: Performed By: #### C MP #### [facility] [address] [place] [address] Dr. Sincere Wood Anion gap [Moles/Vol] 11.4 mmol/L Normal [facility] Comment on above: Performed By: #### C MP #### [facility] [address] [place] [address] Dr. Sincere Wood AST [Catalytic activity/Vol] 46 U/L Critically high 15-37 [facility] Comment on above: Performed By: #### C MP #### [facility] [address] [place] [address] Dr. Sincere Wood Bilirubin [Mass/Vol] 0.3 mg/dL Normal 0.2-1.0 [facility] Comment on above: Performed By: #### C MP #### [facility] [address] [address] [address] Sincere Wood Calcium [Mass/Vol] 8.9 mg/dL Normal 8.5-10.1 [facility] Comment on above: Performed By: #### C MP #### [facility] [address] [address] [address] Sincere Wood Chloride [Moles/Vol] 104 mmol/L Normal 98-107 [facility] Comment on above: Performed By: #### C MP #### [facility] [address] [address] [address] Sincere Wood CO2 [Moles/Vol] 28.6 mmol/L Normal 21.0-32.0 [facility] Comment on above: Performed By: #### C MP #### [facility] [address] [address] [address] Sincere Wood Creatinine [Mass/Vol] 0.69 mg/dL Normal 0.55-1.02 [facility] Comment on above: Performed By: #### C MP #### [facility] [address] [address] [address] Sincere Wood EGFR-AF KENYAN >60 Normal >=60 [facility] Comment on above: Performed By: #### C MP #### [facility] [address] [address] [address] Sincere Wood EGFR-NON AF KENYAN >60 Normal >=60 [facility] Comment on above: Performed By: #### C MP #### [facility] [address] [address] [address] Sincere Wood Globulin (S) [Mass/Vol] 4.1 g/dL Normal [facility] Comment on above: Performed By: #### C MP #### [facility] [address] [address] [address] Sincere Wood Glucose [Mass/Vol] 96 mg/dL Normal 74-106 [facility] Comment on above: Performed By: #### C MP #### [facility] [address] [address] [address] Sincere Wood Potassium [Moles/Vol] 4.0 mmol/L Normal 3.5-5.1 [facility] Comment on above: Performed By: #### C MP #### [facility] [address] [address] [address] Sincere Wood Protein [Mass/Vol] 7.5 g/dL Normal 6.4-8.2 [facility] Comment on above: Performed By: #### C MP #### [facility] [address] [address] [address] Sincere Wood Sodium [Moles/Vol] 140 mmol/L Normal 136-145 [facility] Comment on above: Performed By: #### C MP #### [facility] [address] [address] [address] Sincere Wood Urea nitrogen [Mass/Vol] 19.0 mg/dL Critically high 7.0-18.0 [facility] Comment on above: Performed By: #### C MP #### [facility] [address] [address] [address] Sincere Wood Urea nitrogen/Creatinine [Mass ratio] 27.5 mg/mg Normal [facility] Comment on above: Performed By: #### C MP #### [facility] [address] [address] [address] Sincere Wood Free T3on 11-09-2021 FT3 2.72 pg/mL Normal 2.00-4.40 [facility] [employer] Comment on above: Performed By: #### F T4, TSH, VITD, FT3 #### [facility] [address] [id number] Free T4on 11-09-2021 Free T4 [Mass/Vol] 1.50 ng/dL Normal 0.80-1.80 Caitlin [facility] [employer] Comment on above: Performed By: #### F T4, TSH, VITD, FT3 #### [facility] [address] [id number] TSHon 11-09-2021 TSH 0.298 uIU/mL Low 0.400-4.500 [facility] [employer] Comment on above: Performed By: #### F T4, TSH, VITD, FT3 #### [facility] [address], [place] [id number] Vitamin D 25-OHon 11-09-2021 VIT D 25 OH 53 ng/ml Normal >29 [facility] [employer] Comment on above: Result Comment: Bernie min D Status Deficiency <20 ng/mL Insufficiency 20-29 ng/mL Optimal 30-100 ng/mL Possible Toxicity >=150 ng/mL Performed By: #### F T4, TSH, VITD, FT3 #### [facility] [address], [place] [id number] Vital Signs Date Time Vital Sign Value Performing Clinician Facility 04-11-2025 10:33-0400 Body height 157.5 cm Angely Salinas DPM Work Phone: [facility] 04-11-2025 10:33-0400 Body mass index (BMI) [Ratio] 36.36 kg/m2 Angely Salinas DPM Work Phone: [facility] 04-11-2025 10:33-0400 Body weight 90.17 kg Angely Salinas DPM Work Phone: [facility] 03-19-2025 15:29-0400 Body height 157.5 cm Arnulfo Ryan MD Work Phone: [facility] 03-19-2025 15:29-0400 Body mass index (BMI) [Ratio] 35.74 kg/m2 Arnulfo Ryan MD Work Phone: [facility] 03-19-2025 15:29-0400 Body temperature 97.5 [degF] Arnulfo Ryan MD Work Phone: [facility] 03-19-2025 15:29-0400 Body weight 88.63 kg Arnulfo Ryan MD Work Phone: [facility] 03-19-2025 15:29-0400 Diastolic blood pressure 75 mm[Hg] Arnulfo Ryan MD Work Phone: [facility] 03-19-2025 15:29-0400 Heart rate 77 /min Arnulfo Ryan MD Work Phone: [facility] 03-19-2025 15:29-0400 SaO2% (BldA) [Mass fraction] 96 % Arnulfo Ryan MD Work Phone: [facility] 03-19-2025 15:29-0400 Systolic blood pressure 111 mm[Hg] Arnulfo Ryan MD Work Phone: [facility] 01-15-2025 14:09-0400 Body mass index (BMI) [Ratio] 36.36 kg/m2 Nia Rosanaz [employer]ACH Work Phone: [facility] 01-15-2025 14:09-0400 Body temperature 98.49 [degF] Nia Aichveritoz [employer]ETBALL COACH Work Phone: [facility] 01-15-2025 14:09-0400 Body weight 90.17 kg Nia Aichholz [employer]ASKETBALL COACH Work Phone: [facility] 01-15-2025 14:09-0400 Diastolic blood pressure 78 mm[Hg] Nia Aichholz [employer]ASKETBALL COACH Work Phone: [facility] 01-15-2025 14:09-0400 Heart rate 75 /min Nia Aichholz [employer]ASKETBALL COACH Work Phone: [facility] 01-15-2025 14:09-0400 Respiratory rate 18 /min Nia Aichholz [employer]ET[employer]ALL COACH Work Phone: [facility] 01-15-2025 14:09-0400 SaO2% (BldA) [Mass fraction] 97 % Nia Aichholz [employer]ASKETBALL COACH Work Phone: [facility] 01-15-2025 14:09-0400 Systolic blood pressure 100 mm[Hg] Nia Aichholz [employer]ASKETBALL COACH Work Phone: [facility] 08-14-2024 10:43-0500 Body height 157.5 cm Arnulfo Ryan MD Work Phone: [facility] 08-14-2024 10:43-0500 Body mass index (BMI) [Ratio] 35.67 kg/m2 Arnulfo Ryan MD Work Phone: [facility] 08-14-2024 10:43-0500 Body temperature 98.01 [degF] Arnulfo Ryan MD Work Phone: [facility] 08-14-2024 10:43-0500 Body weight 88.45 kg Arnulfo Ryan MD Work Phone: [facility] 08-14-2024 10:43-0500 Diastolic blood pressure 78 mm[Hg] Arnulfo Ryan MD Work Phone: [facility] 08-14-2024 10:43-0500 Heart rate 71 /min Arnulfo Ryan MD Work Phone: [facility] 08-14-2024 10:43-0500 Systolic blood pressure 115 mm[Hg] Arnulfo Ryan MD Work Phone: [facility] 02-20-2024 11:59-0400 Body mass index (BMI) [Ratio] 34.6 kg/m2 Minoo Hernandez MD Work Phone: [facility] 02-20-2024 11:59-0400 Body temperature 97 [degF] Minoo Hernandez MD Work Phone: [facility] 02-20-2024 11:59-0400 Body weight 85.8 kg Minoo Hernandez MD Work Phone: [facility] 02-20-2024 11:59-0400 Diastolic blood pressure 72 mm[Hg] Minoo Hernandez MD Work Phone: [facility] 02-20-2024 11:59-0400 Heart rate 73 /min Minoo Hernandez MD Work Phone: [facility] 02-20-2024 11:59-0400 Respiratory rate 16 /min Minoo Hernandez MD Work Phone: [facility] 02-20-2024 11:59-0400 SaO2% (BldA) [Mass fraction] 97 % Minoo Hernandez MD Work Phone: [facility] 02-20-2024 11:59-0400 Systolic blood pressure 110 mm[Hg] Minoo Hernandez MD Work Phone: [facility] 01-19-2024 11:16-0400 Body temperature 97.3 [degF] Minoo Hernandez MD Work Phone: [facility] 01-19-2024 11:16-0400 Diastolic blood pressure 62 mm[Hg] Minoo Hernandez MD Work Phone: [facility] 01-19-2024 11:16-0400 Heart rate 52 /min Minoo Hernandez MD Work Phone: [facility] 01-19-2024 11:16-0400 Respiratory rate 16 /min Minoo Hernandez MD Work Phone: [facility] 01-19-2024 11:16-0400 Systolic blood pressure 115 mm[Hg] Minoo Hernandez MD Work Phone: [facility] 01-19-2024 11:13-0400 SaO2% (BldA) [Mass fraction] 98 % Minoo Hernandez MD Work Phone: [facility] 01-19-2024 06:25-0400 Body mass index (BMI) [Ratio] 34.68 kg/m2 Minoo Hernandez MD Work Phone: [facility] 01-19-2024 06:25-0400 Body weight 86 kg Minoo Hernandez MD Work Phone: [facility] 01-18-2024 10:54-0400 Blood Pressure Location Vitaly Stauffer [facility] 01-18-2024 10:54-0400 Diastolic blood pressure 70 mm[Hg] Haider Sarmini [facility] 01-18-2024 10:54-0400 Heart rate 72 /min Haider Sarmini [facility] 01-18-2024 10:54-0400 Respiratory rate 16 /min Haider Sarmini [facility] 01-18-2024 10:54-0400 Systolic blood pressure 106 mm[Hg] Haider Sarmini [facility] 12-06-2023 11:07-0500 Body height 157.5 cm Kely Paras CUR[employer]ULUM ASSISTANT[employer] Work Phone: [phone] [place] [address] 12-06-2023 11:07-0500 Body mass index (BMI) [Ratio] 33.65 kg/m2 Kely Paras CURRICULUM ASSISTANT-[employer] DEVELOPER Work Phone: 6(862)[phone] [place] [address] 12-06-2023 11:07-0500 Body weight 83.46 kg Kely Paras CURRICULUM ASSISTANT-[employer] DEVELOPER Work Phone: [phone] [place] [address] 12-06-2023 11:07-0500 Diastolic blood pressure 75 mm[Hg] Kely Paras CURRICULUM ASSISTANT-[employer]CI[employer] DEVELOPER Work Phone: [facility] 12-06-2023 11:07-0500 Heart rate 74 /min Kely Paras CURRICULUM ASSISTANT-[employer] DEVELOPER Work Phone: [facility] 12-06-2023 11:07-0500 Respiratory rate 16 /min Kely Paras CURRICULUM ASSISTANT-[employer] DEVELOPER Work Phone: [phone](284)[phone] [place] [address] 12-06-2023 11:07-0500 Systolic blood pressure 127 mm[Hg] Kely Paras CURRICULUM ASSISTANT-[employer] DEVELOPER Work Phone: [phone] [place] [address] 11-14-2023 10:48-0500 Blood Pressure Location Haider Sarmini [facility] 11-14-2023 10:48-0500 Diastolic blood pressure 78 mm[Hg] Haider Sarmini [facility] 11-14-2023 10:48-0500 Heart rate 80 /min Haider Sarmini [facility] 11-14-2023 10:48-0500 Respiratory rate 18 /min Haider Sarmini [facility] 11-14-2023 10:48-0500 Systolic blood pressure 120 mm[Hg] Haider Sarmini [facility] 11-07-2023 15:55-0500 Body mass index (BMI) [Ratio] 34.44 kg/m2 Minoo Hernandez MD Work Phone: [facility] 11-07-2023 15:55-0500 Body temperature 97.3 [degF] Minoo Hernandez MD Work Phone: [facility] 11-07-2023 15:55-0500 Body weight 85.4 kg Minoo Hernandez MD Work Phone: [facility] 11-07-2023 15:55-0500 Diastolic blood pressure 73 mm[Hg] Minoo Hernandez MD Work Phone: [facility] 11-07-2023 15:55-0500 Heart rate 82 /min Minoo Hernandez MD Work Phone: [facility] 11-07-2023 15:55-0500 Respiratory rate 14 /min Minoo Hernandez MD Work Phone: [facility] 11-07-2023 15:55-0500 Systolic blood pressure 106 mm[Hg] Minoo Hernandez MD Work Phone: [facility] 10-26-2023 12:57-0500 Body height 157.5 cm Kely Crain CURRICULUM ASSISTANT-ORACLE FINANCIALS DEVELOPER Work Phone: [facility] 10-26-2023 12:57-0500 Body mass index (BMI) [Ratio] 32.92 kg/m2 Kely Crain CURRICULUM ASSISTANT-ORACLE FINANCIALS DEVELOPER Work Phone: [phone] [place] [address] 10-26-2023 12:57-0500 Body weight 81.65 kg Kely Crain CURRICULUM ASSISTANT-ORACLE FINANCIALS DEVELOPER Work Phone: 6([phone] [place] [address] 10-26-2023 12:57-0500 Diastolic blood pressure 70 mm[Hg] Kely Crain CURRICULUM ASSISTANT-ORACLE FINANCIALS DEVELOPER Work Phone: [phone] [place] [address] 10-26-2023 12:57-0500 Heart rate 76 /min Kely Crain CURRICULUM ASSISTANT-ORACLE FINANCIALS DEVELOPER Work Phone: 5([phone])676-940941 [place] [address] 10-26-2023 12:57-0500 Respiratory rate 16 /min Kely Crain CURRICULUM ASSISTANT-ORACLE FINANCIALS DEVELOPER Work Phone: [phone] [place] [address] 10-26-2023 12:57-0500 Systolic blood pressure 96 mm[Hg] Kely Crain APRN-ORACLE FINANCIALS DEVELOPER Work Phone: [facility] 10-06-2023 14:50-0500 Diastolic blood pressure 67 mm[Hg] Vance Baires MD Work Phone: [facility] 10-06-2023 14:50-0500 Heart rate 81 /min Vance Baires MD Work Phone: [facility] 10-06-2023 14:50-0500 Respiratory rate 17 /min Vance Baires MD Work Phone: [facility] 10-06-2023 14:50-0500 SaO2% (BldA) [Mass fraction] 97 % Vance Baires MD Work Phone: [facility] 10-06-2023 14:50-0500 Systolic blood pressure 105 mm[Hg] Vance Baires MD Work Phone: [facility] 10-06-2023 14:20-0500 Body temperature 96.69 [degF] Vance Baires MD Work Phone: [facility] 10-06-2023 12:12-0500 Body height 160 cm Vance Baires MD Work Phone: [facility] 10-06-2023 12:12-0500 Body mass index (BMI) [Ratio] 31.53 kg/m2 Vance Baires MD Work Phone: [facility] 10-06-2023 12:12-0500 Body weight 80.74 kg Vance Baires MD Work Phone: [facility] 09-21-2023 10:36-0500 Body mass index (BMI) [Ratio] 32.65 kg/m2 Hermes Montelongo APRN-GERRY Work Phone: [facility] 09-21-2023 10:36-0500 Body temperature 98.1 [degF] Hermes Montelongo APRN-ORACLE FINANCIALS DEVELOPER Work Phone: [facility] 09-21-2023 10:36-0500 Body weight 83.6 kg Hermes Montelongo APRN-ORACLE FINANCIALS DEVELOPER Work Phone: [facility] 09-21-2023 10:36-0500 Diastolic blood pressure 69 mm[Hg] Hermes Montelongo APRN-ORACLE FINANCIALS DEVELOPER Work Phone: [facility] 09-21-2023 10:36-0500 Heart rate 85 /min Hermes Montelongo APRN-ORACLE FINANCIALS DEVELOPER Work Phone: [facility] 09-21-2023 10:36-0500 Respiratory rate 16 /min Hermes Montelongo APRN-ORACLE FINANCIALS DEVELOPER Work Phone: [facility] 09-21-2023 10:36-0500 SaO2% (BldA) [Mass fraction] 98 % Hermes BAUMANN Work Phone: [facility] 09-21-2023 10:36-0500 Systolic blood pressure 101 mm[Hg] Hermes Montelongo CURRICULUM ASSISTANT-ORACLE FINANCIALS DEVELOPER Work Phone: [facility] 05-12-2023 13:45-0400 Blood Pressure Location Reeves SALAM [facility] 05-12-2023 13:45-0400 Body temperature 97.88 [degF] Reeves SALAM [facility] 05-12-2023 13:45-0400 Diastolic blood pressure 75 mm[Hg] Reeves SALAM [facility] 05-12-2023 13:45-0400 Heart rate 69 /min Reeves SALAM [facility] 05-12-2023 13:45-0400 Respiratory rate 16 /min Reeves SALAM [facility] 05-12-2023 13:45-0400 Systolic blood pressure 111 mm[Hg] Reeves SALAM [facility] 01-12-2023 10:45-0400 Blood Pressure Location Reeves SALAM [facility] 01-12-2023 10:45-0400 Diastolic blood pressure 86 mm[Hg] Reeves SALAM [facility] 01-12-2023 10:45-0400 Heart rate 75 /min Reeves SALAM [facility] 01-12-2023 10:45-0400 Respiratory rate 16 /min Reeves SALAM [facility] 01-12-2023 10:45-0400 Systolic blood pressure 124 mm[Hg] Reeves SALAM [facility] 05-13-2022 13:18-0400 Blood Pressure Location Reeves SALAM [facility] 05-13-2022 13:18-0400 Diastolic blood pressure 76 mm[Hg] Reeves SALAM [facility] 05-13-2022 13:18-0400 Heart rate 68 /min Reeves SALAM [facility] 05-13-2022 13:18-0400 Respiratory rate 16 /min Reeves SALAM [facility] 05-13-2022 13:18-0400 Systolic blood pressure 110 mm[Hg] Reeves SALAM [facility] Encounters Encounter Date Encounter Type Care Provider Facility Start: 04-11-2025 End: 04-11-2025 Bamjaysono Pole Starkianna Salinas DPM Work Phone: [facility] Start: 04-11-2025 End: 04-11-2025 Hany Salinas DPM Work Phone: [facility] Start: 04-11-2025 End: 04-11-2025 ambulatory ANGELY SALINAS Not Available Start: 04-11-2025 End: 04-11-2025 Office outpatient visit 15 minutes Angely Salinas DPM Work Phone: [facility] Comment on above: Bursitis of left lenora t (Primary Dx); Acquired keratoderma; Pain in left foot; Difficulty walking Start: 03-26-2025 ambulatory Samantha Sahu [facility] Start: 03-19-2025 End: 03-19-2025 ambulatory ARNULFO RYAN [facility] Start: 03-19-2025 End: 03-19-2025 Office outpatient visit 25 minutes Arnulfo Ryan MD Work Phone: [facility] Comment on above: Primary biliary chol angitis (Multi) Start: 03-11-2025 End: 03-11-2025 ambulatory ARNULFO RYAN [facility] Start: 01-15-2025 End: 01-15-2025 Bamboo flowsheet Nia Srivastava BASKETBALL COACH Work Phone: [facility] Start: 01-15-2025 End: 01-15-2025 Bamboo flowsheet Nia Srivastava BASKETBALL COACH Work Phone: [facility] Start: 01-15-2025 End: 01-15-2025 Office outpatient visit 15 minutes Nia Srivastava BASKETBALL COACH Work Phone: [facility] Comment on above: Acute rhinosinusitis (Primary Dx); Primary biliary cirrhosis; Morbid obesity (CMS/HCC) Start: 01-15-2025 End: 01-15-2025 ambulatory NIA SRIVASTAVA Not Available Start: 12-31-2024 End: 01-01-2025 Clinisync Result Encounter Generic External Data Provider [facility] External Department Unsolicited Start: 12-31-2024 End: 01-01-2025 Clinisync Result Encounter Generic External Data Provider [facility] External Department Unsolicited Start: 12-31-2024 End: 12-31-2024 Subsequent hospital visit by physician Troy Nazario [facility] Comment on above: BRCA positive Start: 12-31-2024 End: 12-31-2024 ambulatory KELY CRAIN [facility] Start: 09-05-2024 End: 09-05-2024 Clinisync Result Encounter Generic External Data Provider [facility] External Department Unsolicited Start: 09-05-2024 End: 09-05-2024 Clinisync Result Encounter Generic External Data Provider [facility] External Department Unsolicited Start: 08-14-2024 End: 08-14-2024 Office outpatient visit 25 minutes Arnulfo Ryan MD Work Phone: [facility] Comment on above: Severe obesity (BMI 35.0-35.9 with comorbidity) (Multi) (Primary Dx) Start: 08-14-2024 End: 08-14-2024 ambulatory ARNULFO Coffey [facility] Start: 08-07-2024 End: 08-07-2024 Clinisync Result Encounter Generic External Data Provider [facility] External Department Unsolicited Start: 08-07-2024 End: 08-07-2024 Clinisync Result Encounter Generic External Data Provider [facility] External Department Unsolicited Start: 07-05-2024 End: 07-09-2024 Refill Annette Cha NP Work Phone: [facility] Comment on above: Avitaminosis D (Prim erich Dx) Start: 05-23-2024 End: 05-23-2024 ambulatory ARNULFO RYAN Facility:[facility] Start: 05-23-2024 End: 05-23-2024 Patient encounter procedure ARNULFO RYAN [facility] Start: 05-14-2024 End: 05-14-2024 Office outpatient new 45 minutes Arnulfo Ryan MD Work Phone: [facility] Comment on above: Primary biliary chol angitis (Multi) (Primary Dx) Start: 05-14-2024 End: 05-14-2024 ambulatory ARNULFO RYAN [facility] Start: 05-08-2024 End: 05-08-2024 [facility] Start: 04-26-2024 End: 04-26-2024 ambulatory GILBERT WATSON Facility:[facility] Helen robins Start: 04-24-2024 End: 04-24-2024 ambulatory KELY Becerra [facility] Start: 04-23-2024 End: 04-23-2024 ambulatory ANGELY SALINAS Not Available Start: 04-18-2024 ambulatory ARNULFO RYAN Facility: [facility] Start: 04-18-2024 End: 04-18-2024 ambulatory [facility] Start: 02-24-2024 End: 02-25-2024 ambulatory [facility] Start: 02-24-2024 End: 02-24-2024 Office outpatient new 45 minutes Shaka Gonzalez MD Work Phone: [facility] Comment on above: Hypothyroidism, unsp ecified type (Primary Dx); Vitamin D deficiency Start: 02-20-2024 End: 02-20-2024 Postop follow up visit related to original px Minoo Hernandez MD Work Phone: [facility] Comment on above: BRCA positive (Prima ry Dx) Start: 01-19-2024 End: 01-19-2024 Subsequent hospital visit by physician Minoo Hernandez MD Work Phone: [facility] [place] [place] Comment on above: Postoperative pain ( Primary Dx); BRCA gene mutation positive Start: 01-18-2024 End: 01-18-2024 ambulatory SHAIKH BRANT Facility:[facility] Start: 01-18-2024 End: 01-18-2024 Patient encounter procedure Vitaly Stauffer [facility] Start: 12-21-2023 End: 12-21-2023 Subsequent hospital visit by physician Troy Mri [facility] Comment on above: Abnormal MRI, breast ; Mass of lower outer quadrant of right breast Abnormal mammogram Start: 12-06-2023 End: 12-06-2023 Office outpatient visit 25 minutes Kely BAUMANN Work Phone: [facility] Comment on above: Abnormal MRI, breast (Primary Dx); Mass of lower outer quadrant of right breast; Situational anxiety Start: 12-06-2023 End: 12-06-2023 Subsequent hospital visit by physician Troy Mammo 2 [facility] Comment on above: Abnormal findings on diagnostic imaging of breast Abnormal MRI Start: 11-24-2023 End: 11-24-2023 Subsequent hospital visit by physician Troy Mri [facility] Comment on above: BRCA2 gene mutation positive; Breast cancer screening, high risk patient Start: 11-21-2023 End: 11-21-2023 Subsequent hospital visit by physician Rad External Film EF [facility] Comment on above: Arrived Start: 11-14-2023 End: 11-14-2023 ambulatory Haidermariam Freemanmarcus Facility:[facility] Start: 11-14-2023 End: 11-14-2023 Patient encounter procedure [facility] Start: 11-07-2023 End: 11-07-2023 Office outpatient visit 25 minutes Minoo Hernandez MD Work Phone: [facility] Comment on above: BRCA gene mutation p ositive (Primary Dx); BRCA positive Start: 10-26-2023 End: 10-26-2023 Office outpatient new 45 minutes Kely Crain APRN-ORACLE FINANCIALS DEVELOPER Work Phone: [facility] Comment on above: Breast cancer screen ing, high risk patient (Primary Dx); BRCA2 gene mutation positive Start: 10-06-2023 End: 10-06-2023 Subsequent hospital visit by physician Vance Baires MD Work Phone: [facility] Comment on above: BRCA positive; Primary biliary cholangitis (CMS/HCC); Familial malignant neoplasm of pancreas (CMS/HCC) Start: 10-05-2023 End: 10-05-2023 Phys/qhp telephone evaluation 21-30 min Vance Baires MD Work Phone: [facility] Comment on above: BRCA positive (Prima ry Dx); Primary biliary cholangitis (CMS/HCC); Familial malignant neoplasm of pancreas (CMS/HCC) Start: 09-21-2023 End: 09-21-2023 Office outpatient new 30 minutes Hermes Montelongo APRN-ORACLE FINANCIALS DEVELOPER Work Phone: [facility] Comment on above: BRCA positive (Prima ry Dx) Start: 09-06-2023 End: 09-06-2023 ambulatory [facility] Start: 08-09-2023 End: 08-10-2023 ambulatory [facility] Start: 05-12-2023 End: 05-12-2023 Patient encounter procedure Reeves MICHELLE [facility] Start: 05-05-2023 Telephone encounter Yas Cardenas MD Work Phone: Gastroenterology Comment on above: Results Start: 04-20-2023 End: 04-20-2023 Patient encounter procedure YAS MEZA [facility] Start: 2023 Telephone encounter Yas Cardenas MD Work Phone: Gastroenterology Comment on above: Results Start: 04-06-2023 End: 04-06-2023 ambulatory Yas Meza MD Work Phone: Gastroenterology Comment on above: Fibroscan (ultrasoun d) Primary biliary chol angitis (HCC) (Primary Dx) Start: 04-06-2023 End: 04-06-2023 Telemedicine consultation with patient Yas Meza MD Work Phone: [facility] Start: 02-03-2023 End: 02-03-2023 Patient encounter procedure Leandro ALEMANAM [facility] Start: 01-12-2023 End: 01-12-2023 Patient encounter procedure Reeves SALAM [facility] Start: 01-04-2023 Telephone encounter Yas Cardenas MD Work Phone: Gastroenterology Comment on above: Orders Start: 01-01-2023 End: 01-02-2023 ambulatory REEVES SALAM Facility:[facility] Start: 11-23-2022 End: 11-24-2022 ambulatory GRAVESMARY LOU GUO Facility:[facility] Start: 10-26-2022 End: 10-27-2022 ambulatory SHAIKH Nirali GUO Facility:[facility] Start: 10-11-2022 End: 10-11-2022 ambulatory Yas Meza MD Work Phone: Gastroenterology Comment on above: Primary biliary chol angitis (HCC) (Primary Dx) Start: 10-11-2022 End: 10-11-2022 Telemedicine consultation with patient Yas Meza MD Work Phone: [facility] Start: 09-22-2022 End: 09-23-2022 ambulatory SHAIKH Nirali GUO Facility:[facility] Start: 05-13-2022 End: 05-13-2022 Patient encounter procedure Reevesjono BILL [facility] Start: 05-07-2022 End: 05-08-2022 ambulatory SHAIKH Nirali GUO Facility:[facility] Start: 03-03-2022 End: 03-03-2022 ambulatory Yas Meza MD Work Phone: Gastroenterology Comment on above: Primary biliary chol angitis (HCC) Start: 03-03-2022 End: 03-03-2022 Telemedicine consultation with patient Yas Meza MD Work Phone: [facility] Start: 03-02-2022 Telephone encounter Shwetha Rodas (Pss) Gastroenterology Comment on above: Appointment Start: 02-18-2022 End: 02-19-2022 ambulatory SHAIKH Nirali GUO Facility:[facility] Procedures Date Procedure Procedure Detail Performing Clinician Start: 12-31-2024 MRI BREAST DOMINGO. W/CONTRAST Generic Exter nal Data Provider Start: 09-05-2024 [facility] LIVER PANEL Generic External Data Provider Start: 08-07-2024 [facility] LIVER PANEL Generic External Data Provider Start: 04-24-2024 Mammography Arnulfo Ryan MD Work Phone: Start: 04-18-2024 Microscopic observation [Identifier] in Cervix by Cyto stain Annette Cha BASKETBALL COACH Work Phone: Start: 01-19-2024 PULSE OXIMETRY, CONTINUOUS Vikram velazco MD Work Phone: Start: 12-21-2023 Diagnostic mammography computer-aided detcj uni Kely Becerra Paras CURRICULUM ASSISTANT-ORACLE FINANCIALS DEVELOPER Work Phone: Start: 12-21-2023 Bx breast w/device 1st lesion magnetic res guid Kely Becerra Paras CURRICULUM ASSISTANT-ORACLE FINANCIALS DEVELOPER Work Phone: Start: 12-19-2023 Thyrotropin [Units/volume] in Serum or Plasma Stj [facility]ri Start: 12-06-2023 Ultrasound elastography first target lesion Kely Mariam Crain CURRICULUM ASSISTANT-ORACLE FINANCIALS DEVELOPER Work Phone: Start: 11-24-2023 Mri breast without&with contrast w/cad bilateral Kely Mariam Crain CURRICULUM ASSISTANT-ORACLE FINANCIALS DEVELOPER Work Phone: Start: 11-21-2023 End: 11-21-2023 Study Interpretation of outside study Kely Mariam Crain CURRICULUM ASSISTANT-ORACLE FINANCIALS DEVELOPER Work Phone: Start: 10-06-2023 Esophagogastroduodenoscopy us scope w/adj strxrs Vance Baires MD Work Phone: Start: 08-09-2023 MISCELLANEOUS GENETICS TEST HERMES MILLER LLO Start: 03-30-2023 End: 03-30-2023 Mammography Yas Meza MD Work Phone: Start: 03-30-2023 Microscopic observation [Identifier] in Cervix by Cyto stain Arnulfo Ryan MD Work Phone: Start: 01-12-2023 Colonoscopy Stj Mri Start: 03-25-2021 End: 03-25-2021 Mammography Yas Meza MD Work Phone: Start: 12-29-2020 Colonoscopy Vance Baires MD Work Phone: Start: 12-29-2020 Colonoscopy Leandro BILL Start: 10-29-2020 Adult depression screening assessment Shwetha Rodas Appendectomy Leandro BILL section Leandro BILL Tonsillectomy and adenoidectomy Leandro BILL Plan of Treatment Date Care Activity Detail Author Start: 01-12-2033 Screening for malign ant neoplasm of colon [facility] Start: 11-23-2032 DTaP/Tdap/Td Vaccine s (2 - Td or Tdap) DTaP/Tdap/Td Vaccines (2 - Td or Tdap) [facility] Start: 12-29-2030 Screening for malign ant neoplasm of colon [facility] Start: 03-30-2028 Screening for malign ant neoplasm of cervix HPV/Cotest [facility] Start: 04-18-2027 Screening for malign ant neoplasm of cervix [facility] Start: 09-11-2026 Screening for malign ant neoplasm of colon FIT-DNA [facility] Start: 2026 RSV patient s and/or patients aged 60+ years (1 - 1-dose 60+ series) RSV patients and/or patients aged 60+ years (1 - 1-dose 60+ series) [facility] Start: 03-30-2026 Screening for malign ant neoplasm of cervix [facility] Start: 03-26-2026 LIPID SCREEN LIPID SCREEN [facility] Start: 09-02-2025 End: 03-19-2026 Hepatic function 2000 panel - Serum or Plasma Hepatic Function Panel Lab Routine Primary biliary cholangitis (Multi) Expected: 09/02/2025 (Approximate), Expires: 03/19/2026 [facility] Service Area Work Phone: Comment on above: Expected: 09/02/2025 (Approximate), Expires: 03/19/2026 Start: 06-03-2025 Influenza vaccination [facility] Start: 04-24-2025 Screening for malign ant neoplasm of breast Mammogram [facility] Start: 04-22-2025 End: 04-22-2025 Patient encounter procedure 04/22/2025 10:30 AM EDT Office Visit [facility] [address] [place] [id number] Adolfo Ramirez, DO [address] [place] [address] [facility] Start: 03-04-2025 End: 03-04-2025 Patient encounter procedure 03/04/2025 11:20 AM EDT Office Visit [facility] [address] [place] [address] [place] [address] [address] [facility] [place] [address] [facility] Start: 01-15-2025 End: 01-15-2025 Patient encounter procedure 01/15/2025 2:00 PM EDT Office Visit [facility] [address] [place] [address] Nia Srivastava NP [address] [place] [address] Arrived [facility] Comment on above: Arrived Start: 12-18-2024 Thyroid stimulating hormone measurement TSH Level [facility] Start: 11-27-2024 End: 11-27-2024 Patient encounter procedure 11/27/2024 1:00 PM EST Office Visit [facility] [address] [place] [address] Kely Crain, CURRICULUM ASSISTANT-ORACLE FINANCIALS DEVELOPER [address] [place] [address] [facility] Start: 11-16-2024 End: 11-16-2024 Patient encounter procedure 11/16/2024 12:00 PM EST Appointment [facility] [address] [place] [address] [facility] Start: 08-14-2024 End: 08-14-2024 Patient encounter procedure 08/14/2024 10:40 AM EST Office Visit [facility] [address] [place] [phone] [place] [address] [address] [place] [address] [facility] Start: 07-30-2024 End: 07-30-2024 Patient encounter procedure 07/30/2024 10:30 AM EDT Office Visit [facility] [address] [place] [address] Annette Cha NP [address] [place] [address] [facility] Start: 07-09-2024 ambulatory Ambulatory Facility:[facility] Start: 06-03-2024 COVID-19 Vaccine ( season) COVID-19 Vaccine ( season) [facility] Start: 06-03-2024 COVID-19 Vaccine ( season) COVID-19 Vaccine ( season) [facility] Start: 06-03-2024 Influenza vaccination [facility] Start: 05-14-2024 End: 05-14-2025 Hepatic function 2000 panel - Serum or Plasma Hepatic Function Panel Lab Routine Primary biliary cholangitis (Multi) Expected: 05/14/2024 (Approximate), Expires: 05/14/2025 [facility] Work Phone: Comment on above: Expected: 05/14/2024 (Approximate), Expires: 05/14/2025 Start: 05-14-2024 End: 05-14-2025 Liver Elastography (Fibroscan) Liver Elastography (Fibroscan) GI Routine Primary biliary cholangitis (Multi) Expected: 05/14/2024, Expires: 05/14/2025 [facility] Service Area Work Phone: Comment on above: Expected: 05/14/2024 , Expires: 05/14/2025 Start: 05-14-2024 End: 05-14-2024 Patient encounter procedure 05/14/2024 11:20 AM EDT Office Visit [facility] [address] [facility] [address] [place] [phone] [place] [address] [address] Department [place] [address] [facility] Start: 04-24-2024 End: 04-24-2024 Patient encounter procedure [facility] Start: 04-02-2024 End: 12-24-2024 DBT Breast - bilateral BI mammo bilateral screening tomosynthesis Imaging Routine BRCA2 gene mutation positive Breast cancer screening, high risk patient Expected: 04/02/2024, Expires: 12/24/2024 [facility] Service Area Work Phone: Comment on above: Expected: 04/02/2024 , Expires: 12/24/2024 Start: 03-30-2024 Mammography MAMMOGRAM [facility] Start: 03-30-2024 Screening for malign ant neoplasm of breast Mammogram [facility] Start: 03-26-2024 DIABETES SCREEN DIABETES SCREEN [facility] Start: 02-24-2024 End: 02-24-2024 Patient encounter procedure 02/24/2024 11:10 AM EDT Office Visit [facility] [address] [place] [phone] [place] [address] [address] Department [place] [address] [facility] Start: 02-20-2024 End: 02-20-2024 Patient encounter procedure 02/20/2024 12:00 PM EDT Office Visit [facility] [address] [facility] [place] [address] [place] [address] [place], [place] [id number] [facility] Start: 01-19-2024 End: 01-19-2024 Admission to same day surgery center 01/19/2024 7:15 AM EDT - 01/19/2024 10:20 AM EDT [place] [facility] [address] [place] [address] [place] [address] [place], [place] [id number] Laparoscopic Bilateral salping-oophorectomy [73239 (CPT )] [facility] [place] Comment on above: Laparoscopic Bilater al salping-oophorectomy [17615 (CPT )] Start: 01-19-2024 End: 01-19-2024 Laparoscopy w/rmvl adnexal structures Salpingo Oophorectomy Laparoscopy BRCA gene mutation positive 01/19/2024 7:15 AM EDT Virtual [facility] [place] Start: 01-19-2024 Subsequent hospital visit by physician 01/19/2024 5:45 AM EDT Hospital Encounter [facility] [place] [address] [place] [address] [place] [address] [place], [place] [id number] [facility] [place] [place] Start: 12-29-2023 End: 12-29-2023 Admission to same day surgery center 12/29/2023 7:15 AM EDT - 12/29/2023 10:25 AM EDT [place] [facility] [place] [address] [address] [facility] [place] [address] [place] [address] [place] [address] Laparoscopic Bilateral salping-oophorectomy [13491 (CPT )] [facility] [place] Comment on above: Laparoscopic Bilater al salping-oophorectomy [78168 (CPT )] Start: 12-29-2023 End: 12-29-2023 Laparoscopy w/rmvl adnexal structures Salpingo Oophorectomy Laparoscopy BRCA gene mutation positive 12/29/2023 7:15 AM EDT Virtual [facility] [place] Start: 12-29-2023 Subsequent hospital visit by physician 12/29/2023 5:45 AM EDT Hospital Encounter [facility] [place] [address] [place] [address] [place] [address] [place] [address] [facility] [place] Start: 12-21-2023 End: 12-21-2023 Patient encounter procedure [facility] Start: 12-19-2023 End: 12-19-2023 Admission to establishment 12/19/2023 1:45 PM EDT Pre-Admission Testing [facility] [address] [place] [address] [facility] Start: 12-12-2023 End: 12-12-2023 Telemedicine consultation with patient 12/12/2023 2:00 PM EDT Telemedicine Clinical Support [facility] [address] [place] [address] [facility] Start: 12-06-2023 End: 02-04-2025 MG Breast Views BI MR breast vacuum assisted biopsy Imaging Routine Abnormal MRI, breast Mass of lower outer quadrant of right breast Expected: 12/06/2023, Expires: 02/04/2025 [facility] Service Area Work Phone: Comment on above: Expected: 12/06/2023 , Expires: 02/04/2025 Start: 12-06-2023 End: 12-06-2023 Patient encounter procedure 12/06/2023 1:45 PM EST Appointment [facility] [address] [place] [address] [facility] Start: 12-06-2023 End: 12-06-2023 Patient encounter procedure [facility] Start: 11-24-2023 End: 11-24-2023 Patient encounter procedure 11/24/2023 9:30 AM EST Appointment [facility] [address] [place] [address] [facility] Start: 11-07-2023 End: 11-07-2023 Patient encounter procedure 11/07/2023 4:00 PM EST Office Visit [facility] [address] [facility] [address] [id number] [place] [address] [place] [address] [facility] Start: 11-07-2023 End: 11-07-2024 Request for Pre-Admission Testing Visit Request for Pre-Admission Testing Visit Procedures Routine BRCA gene mutation positive Expected: 11/07/2023 (Approximate), Expires: 11/07/2024 [facility] Service Area Work Phone: Comment on above: Expected: 11/07/2023 (Approximate), Expires: 11/07/2024 Start: 10-26-2023 End: 12-24-2024 MR Breast - bilateral W contrast IV MR breast bilateral w contrast full protocol Imaging Routine BRCA2 gene mutation positive Breast cancer screening, high risk patient Expected: 10/26/2023, Expires: 12/24/2024 [facility] Work Phone: Comment on above: Expected: 10/26/2023 , Expires: 12/24/2024 Start: 10-18-2023 End: 10-18-2023 Patient encounter procedure 10/18/2023 1:00 PM EST Office Visit [facility] [address] [place] [address] Kely Crain, CURRICULUM ASSISTANT-ORACLE FINANCIALS DEVELOPER [address] [place] [address] [facility] Start: 10-06-2023 End: 10-06-2023 Patient encounter procedure 10/06/2023 2:00 PM EST Appointment [facility] [address] [place] [address] [place] [address] [place] [address] [place] [address] [place] [address] Yulia Dorman RN [facility] Start: 10-05-2023 End: 10-05-2024 Endoscopic Ultrasound (Upper) Endoscopic Ultrasound (Upper) Endoscopy Routine 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) Expected: 10/05/2023, Expires: 10/05/2024 [facility] Service Area Work Phone: Comment on above: Expected: 10/05/2023 , Expires: 10/05/2024 Start: 10-05-2023 End: 10-05-2023 Telemedicine consultation with patient 10/05/2023 9:00 AM EST Telemedicine [facility] [address] [facility] [address] [place] [phone] [place] [address] [place] [address] [facility] Start: 06-03-2023 COVID-19 Vaccine ( season) COVID-19 Vaccine ( season) [facility] Start: 06-03-2023 Influenza vaccination [facility] Start: 10-03-2022 DEPRESSION ASSESSMENT DEPRESSION ASS ESSMENT [facility] Start: 06-03-2022 Influenza vaccination [facility] Start: 10-29-2021 Adult depression screening assessment DEPRESSION SCREENING [facility] Start: 07-30-2021 COVID-19 VACCINE (2 - Booster for Jarvis series) COVID-19 VACCINE (2 - Booster for Jarvis series) [facility] Start: 2016 SHINGRIX VACCINE (1 of 2) SHINGRIX VACCINE (1 of 2) [facility] Start: 2016 Zoster Vaccines (1 of 2) Zoste r Vaccines (1 of 2) [facility] Start: 2011 COLOGUARD (FIT-DNA) COLOGUARD (FIT-D NA) [facility] Start: 2011 Colonoscopy COLONOSCOPY [facility] Start: 2011 COLORECTAL CANCER SCREENING COLORECTAL CANCER SCREENING [facility] Start: [address] COLONOGRAPHY [facility] Start: 2011 FECAL OCCULT BLOOD FECAL OCCULT BLOO D [facility] Start: 2011 SIGMOIDOSCOPY SIGMOIDOSCOPY [facility] Start: 2008 PAP TESTING PAP TESTING [facility] Start: 2006 Mammography MAMMOGRAM [facility] Start: 1996 HPV TESTING HPV TESTING [facility] Start: 1987 PAP TESTING PAP TESTING [facility] Start: 1987 Screening for malign ant neoplasm of cervix [facility] Start: 1985 Pneumococcal vaccination Pneum ococcal Vaccine (1 of 2 - PCV) [facility] Start: 1985 Urine microalbumin profile DTAP,TDAP,TD (1 - Tdap) [facility] Start: 1984 Diabetes mellitus screening Diabetes Screening [facility] Start: 1984 Hepatitis C screening Hepatitis C Sc reening [facility] Start: 1984 HIV SCREENING HIV SCREENING [facility] Start: 1972 PNEUMOCOCCAL (1 - PCV) PNEUMOCOCCAL (1 - PCV) [facility] Start: 1972 Pneumococcal Vaccine : Pediatrics (0 to 5 Years) and At-Risk Patients (6 to 64 Years) (1 of 2 - PCV) Pneumococcal Vaccine: Pediatrics (0 to 5 Years) and At-Risk Patients (6 to 64 Years) (1 of 2 - PCV) [facility] Start: 1966 HIV screening HIV Screening [facility] Start: 1966 Lipid panel Lipid Panel [facility] Start: 1966 Screening for malign ant neoplasm of colon [facility] Start: 1966 Thyroid stimulating hormone measurement TSH Level [facility] Start: 1966 Yearly Adult Physical Yearly Adult P hysical [facility] End: 12-06-2023 MG Breast - unilateral Single view for clip placement BI breast biopsy clip imaging Imaging Routine Abnormal findings on diagnostic imaging of breast Once for 1 Occurrences starting 12/06/2023 until 12/06/2023 [facility] Service Area Work Phone: Comment on above: Once for 1 Occurrenc es starting 12/06/2023 until 12/06/2023 End: 11-24-2023 MR Breast - bilateral W contrast IV [facility] Service Area Work Phone: Comment on above: Once for 1 Occurrenc es starting 11/24/2023 until 11/24/2023 End: 12-31-2024 MR Breast - bilateral W contrast IV [facility] Service Area Work Phone: Comment on above: Once for 1 Occurrenc es starting 12/31/2024 until 12/31/2024 Non-gynecological cytology method study Cytology Consultation (Non-Gynecologic) Pathology and Cytology Timed BRCA gene mutation positive Release Upon Ordering for 1 Occurrences starting 01/19/2024 [facility] Service Area Work Phone: Comment on above: Release Upon Orderin g for 1 Occurrences starting 01/19/2024 Surgical pathology study [facility] Service Area Work Phone: Comment on above: Release Upon Orderin g for 1 Occurrences starting 12/21/2023, 1 completed Surgical pathology study [facility] Work Phone: Comment on above: Release Upon Orderin g for 1 Occurrences starting 01/19/2024, 1 completed End: 05-06-2024 Ultrasound elastography parenchyma US ELASTOGRAPHY LIVER Radiology Routine Primary biliary cholangitis (HCC) 1 Occurrences starting 2023 until 05/06/2024 [facility] Work Phone: Comment on above: 1 Occurrences starti ng 2023 until 05/06/2024 End: 05-06-2024 US ABD RIGHT UPPER QUADRANT US ABD RIGHT UPPER QUADRANT Radiology Routine Primary biliary cholangitis (HCC) 1 Occurrences starting 2023 until 05/06/2024 [facility] Work Phone: Comment on above: 1 Occurrences starti ng 2023 until 05/06/2024 [facility] Immunizations Immunization Date Immunization Notes Care Provider Gina lechuga 11-25-2022 measles, mumps and rubella virus vaccine Reeves SALAM [facility] 11-23-2022 tetanus toxoid, reduced diphtheria toxoid, and acellular pertussis vaccine, adsorbed Reeves SALAM [facility] 06-04-2021 COVID-19 vaccine, vector-nr, [id number], PF, 0.5 mL Reeves SALAM [facility] 03-14-2014 hepatitis A vaccine, adult dosage Reeves SALAM [facility] 03-14-2014 hepatitis B vaccine, adult dosage Reeves SALAM [facility] 11-12-2013 hepatitis B vaccine, adult dosage Reeves SALAM [facility] 09-06-2013 hepatitis A vaccine, adult dosage Reeves SALAM [facility] 09-06-2013 hepatitis B vaccine, adult dosage Reeves SALAM [facility] 08-08-2010 influenza virus vaccine, unspecified formulation [facility] Work Phone: NEGATED: Highlighted row has not occurred!11-07-2023 influenza virus vaccine, unspecified formulation Vitaly Stauffer [facility] NEGATED: Highlighted row has not occurred!05-13-2022 influenza virus vaccine, unspecified formulation Reeves SALAM [facility] NEGATED: Highlighted row has not occurred!09-15-2021 influenza virus vaccine, unspecified formulation Reeves SALAM [facility] Payers Date Payer Category Payer Managed Care (Private) NIRAJ [id number] 2022 Private Health Insurance RC SEBASTIAN [id number] 2021 Santo KHAN [facility] RAYMUNDO [id number] 2021-Present [phone] [address] [place] [address] Indemnity [id number] 2021 Unknown [id number] 1.13.159. [id number] 2021 Unknown [id number] 1966 Unknown [id number] 2.16.840.1.404142.3.579. 2.593 1966 Unknown [id number] 2.16.840.1.010451.3.579. 2.593 1966 Unknown [id number] 2.16.840.1.878006.3.579. 2.593 1966 Unknown [id number] 2.16.840.1.926863.3.579. 2.593 1966 Unknown [id number] 2.16.840.1.770879.3.579. 2.593 1966 Unknown [id number] 2.16.840.1.198007.3.579. 2.593 1966 Unknown [id number] 2.16.840.1.968758.3.579. 2.593 1966 Unknown [id number] 2.16.840.1.889163.3.579. 2.1244 1966 Unknown [id number] 2.16.840.1.355214.3.579. 2.1244 1966 Unknown [id number] 2.16.840.1.718086.3.579. 2.1244 1966 Unknown [id number] 2.16.840.1.500960.3.579. 2.727 1966 Unknown [id number] 2.16.840.1.495323.3.579. 2.727 1966 Unknown [id number] 2.16.840.1.462470.3.579. 2.727 1966 Unknown [id number] 2.16.840.1.323303.3.579. 2.72 1966 Unknown [id number] 2.16.840.1.530078.3.579. 2. 1966 Unknown [id number] 2.16.840.1.233307.3.579. 2.72 1966 Unknown [id number] 2.16.840.1.384824.3.579. 2.1242 1966 Unknown [id number] 2.16.840.1.918723.3.579. 2.1242 1966 Unknown [id number] 2.16.840.1.859635.3.579. 2.1242 1966 Unknown [id number] 2.16.840.1.459804.3.579. 2.1244 1966 Unknown [id number] 2.16.840.1.562446.3.579. 2.1244 1966 Unknown [id number] 2.16.840.1.814097.3.579. 2.1244 1966 Unknown [id number] 2.16.840.1.538076.3.579. 2.1244 1966 Unknown [id number] 2.16.840.1.870968.3.579. 2.1244 1966 Unknown [id number] 2.16.840.1.379560.3.579. 2.716 1966 Unknown [id number] 2.16.840.1.493694.3.579. 2.1259 1966 Unknown [id number] 2.16.840.1.403272.3.579. 2.1259 1966 Unknown [id number] 2.16.840.1.298097.3.579. 2.1259 1966 Unknown [id number] 2.16.840.1.268535.3.579. 2.1259 1966 Unknown [id number] 2.16.840.1.629822.3.579. 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) [facility] Start: 1965 Sex Assigned At Not on file [facility] Tobacco smoking status Never [facility] Start: 04-06-2023 End: 04-18-2024 Sex Assigned At Female [facility] Start: 11-13-2019 End: 03-30-2023 Tobacco use and exposure Smokeless tobacco non-user [facility] Start: 04-06-2023 End: 04-18-2024 History of Social function [facility] Start: 09-21-2023 End: 04-24-2024 Alcohol intake Lifetime non-drinker (finding) [facility] Work Phone: Start: 09-08-2023 Sexual orientation Heterosexual (sangita becker) [facility] Work Phone: Start: 09-11-2023 End: 03-11-2025 Exposure to SARS-CoV-2 (event) Not sure [facility] Start: 04-23-2024 End: 04-11-2025 Alcoholic beverage intake Ex-drinker (finding) [facility] How often to you hav e a drink containing alcohol? Never [facility] Start: 2023 Alcohol Comment Caffeine intak e: occasional [facility] NEGATED: Highlighted rowStart: NINF History of tobacco use Passive smoker [facility] Work Phone: Functional Status Date Assessment Result Facility 01-18-2024 Functional Status N/A [facility] 11-14-2023 Functional Status N/A [facility] 05-12-2023 Functional Status N/A [facility] 01-12-2023 Functional Status N/A [facility] 05-13-2022 Functional Status N/A [facility] Clinical Notes 03-02-2022 to 04-11-2025 Angely Salinas DPM - 04/11/2025 10:30 AM EDTPatient InstructionsAssessment & Plan Note - Arnulfo Ryan MD - 03/24/2025 9:36 AM RIOTPglendy Ryan MD - 03/19/2025 3:20 PM EDTLaboratory Note Date & Type Note Facility 04-11-2025 History of Present illness Narrative Images from the original note were not included. Subjective Patient ID: Nithya eD Dios is a 60 y.o. female who presents for Foot Callouses (Established patient presents today for corn/ callus on the left foot. Patient also relates heel spurs with left foot, patient states it's been ongoing since last year. ). HPI Chief complaint: Painful callus left foot. Insidious onset without known injury or trauma. Progressive symptoms over the past 1-2 months or so; impacting any walking and/or weight-bearing activity. Denies bleeding or drainage. Relates no recent change in activity or footwear; noting good compliance with supportive footwear and Powerstep orthoses. Attempts at self care have been difficult and ineffective. Relates recent weight gain associated with Iqivro medication; which is likely aggravating symptomatology. The left heel is generally minimally symptomatic. Medications Current Outpatient Medications: calcium citrate (Calcitrate) 950 (200 Ca) MG tablet, Take 950 mg by mouth Daily, Disp: , Rfl: Elafibranor (Iqirvo) 80 MG tablet, Take 80 mg by mouth in the morning., Disp: , Rfl: levothyroxine (Synthroid, Levoxyl) 112 MCG tablet, TAKE ONE TABLET BY MOUTH EVERY MORNING ON AN EMPTY STOMACH, Disp: 90 tablet, Rfl: 1 Multiple Vitamin (Multivitamin Adult) tablet, , Disp: , Rfl: ursodiol (Actigall) 500 MG tablet, , Disp: , Rfl: Allergies Sulfamethoxazole-trimethoprim, Sulfanilamide, and Rifampin Past Surgical History Past Surgical History: Procedure Laterality Date APPENDECTOMY 1984 SECTION, LOW TRANSVERSE COLONOSCOPY W/ POLYPECTOMY 01/2016 Dr. Bill HUMERUS SURGERY Left upper LT MULTIPLE TOOTH EXTRACTIONS 03/23/2022 SALPINGOOPHORECTOMY Bilateral 01/21/2024 benign PATH SKIN BIOPSY x2 Family History Family History Problem Relation Name Age of Onset Hypertension Father Diabetes Father Heart disease Father Ovarian cancer Maternal Grandmother Breast cancer Other Breast cancer Other Ovarian cancer Other Objective General Examination: GENERAL EXAMINATION: Alert and oriented. Pleasant disposition. Presents wearing Crocs. Vascular: DORSALIS PEDIS PULSE: bilaterally, 2/4 . POSTERIOR TIBIAL PULSE: bilaterally, 2/4 . TEMPERATURE GRADIENT: warm to warm. EDEMA: Unremarkable for ankle edema. CAPILLARY FILLING TIME(sec): capillary fill intact bilateral digits less than 3 secs . Neurologic: MUSCLE POWER: No focal deficits. TINELS SIGN: Negative along the tarsal tunnel. SHARP SENSATION: Tactile and soft touch sensation intact. Dermatologic: SKIN FINDINGS: Intact, skin turgor is good. HYPERTROPHIC LESION: Slightly raised, hyperkeratotic lesions located sub 5th metatarsal condyle bilateral. NAIL PATHOLOGY: non-dystrophic. INTERDIGITAL MACERATION: Clean, dry, non-inflamed. SKIN PATHOLOGY: texture, turgor, hair growth, within normal limits. POROKERATOSIS: None identified. Ankle / Foot: RANGE OF MOTION: Functional ankle, subtalar and MTP joint range of motion without pain. Left foot: Palpable tenderness associated with hyperkeratotic lesion; located sub 5th metatarsal condyle. Mildly inflamed, without ulcerative or verrucous changes. Radiology: 2 views left foot: Lateral and oblique: 04/23/2024: Unremarkable for acute osseous or joint pathology. Unremarkable for fracture, stress fracture, cystic, erosive or lytic changes of the calcaneus. Well-formed enthesophyte at the insertion of the plantar fascia. Calcific deposition at the insertion of the Achilles tendon. Assessment/Plan IPK/sub lesional bursitis 5th metatarsal left foot. Insertional plantar fasciitis/heel spur syndrome left by history. Plan: Review of clinical findings, etiology and contributing/aggravating factors, treatment strategy, rationale and objectives. Left foot: Aseptic technique: # 15 scalpel: Sharp debridement of symptomatic hyperkeratotic lesion; reducing direct and indirect pressure; providing favorable symptom relief. Encourage compliance with supportive footwear and Powerstep orthoses. Discourage any barefoot walking. Pumice stone as needed. Procedure: As noted This note was created with the assistance of a speech recognition program. While intending to generate a timely document that accurately reflects the content of the visit, no guarantee can be provided that every grammatical or spelling mistake has been or will be identified or corrected. Thank you for your understanding. Angely aSlinas DPM documented in this encounter [facility] 04-11-2025 Instructions Angely Salinas DPM - 04/11/2025 10:30 AM EDT As noted documented in this encounter [facility] 03-24-2025 Evaluation + Plan note Associated Problem(s): Primary biliary cholangitis (Multi) she will continue on UDCA and elafibranor as prescribed for PBC She will continue on MVI, Calcium supplements and vitamin D She will have a DEXA scan every 3 years She will have Fibroscan annually She will have hepatic function panel done every 6 months She will return in 6 months [facility] Work Phone: 03-24-2025 Miscellaneous Notes Associated Problem(s): Primary biliary cholangitis (Multi) she will continue on UDCA and elafibranor as prescribed for PBC She will continue on MVI, Calcium supplements and vitamin D She will have a DEXA scan every 3 years She will have Fibroscan annually She will have hepatic function panel done every 6 months She will return in 6 months documented in this encounter [facility] Work Phone: 03-19-2025 History of Present illness Narrative Subjective She is working on diet and exercise. Her alkphos is normal for the first time since she was diagnosed with PBC on UDCA and elafibranor. She denies fluid overload or cognitive impairment. Fibroscan reflects minimal steatosis and fibrosis. Review of Systems Constitutional: Positive for fatigue. Negative for chills, fever and unexpected weight change. HENT: Negative for congestion and trouble swallowing. Respiratory: Negative for cough, shortness of breath and wheezing. Cardiovascular: Negative for chest pain. Gastrointestinal: Negative for abdominal distention, abdominal pain, blood in stool, constipation, diarrhea, nausea and vomiting. Genitourinary: Negative for difficulty urinating. Musculoskeletal: Negative for arthralgias and joint swelling. Skin: Negative for color change. Neurological: Negative for dizziness, speech difficulty, light-headedness and headaches. Psychiatric/Behavioral: Negative for confusion and sleep disturbance. Physical Exam Constitutional: General: She is awake. Appearance: Normal appearance. HENT: Head: Normocephalic and atraumatic. Nose: Nose normal. Mouth/Throat: Mouth: Mucous membranes are moist. Eyes: Pupils: Pupils are equal, round, and reactive to light. Neck: Thyroid: No thyroid mass. Trachea: Phonation normal. Cardiovascular: Rate and Rhythm: Normal rate and regular rhythm. Pulmonary: Effort: Pulmonary effort is normal. No respiratory distress. Breath sounds: Normal air entry. No decreased breath sounds, wheezing, rhonchi or rales. Abdominal: General: Bowel sounds are normal. There is no distension. Palpations: Abdomen is soft. Tenderness: There is no abdominal tenderness. Musculoskeletal: Cervical back: Neck supple. Right lower leg: No edema. Left lower leg: No edema. Skin: General: Skin is warm. Capillary Refill: Capillary refill takes less than 2 seconds. Neurological: General: No focal deficit present. Mental Status: She is alert and oriented to person, place, and time. Mental status is at baseline. Cranial Nerves: Cranial nerves 2-12 are intact. Motor: Motor function is intact. Psychiatric: Attention and Perception: Attention and perception normal. Mood and Affect: Mood normal. Speech: Speech normal. Behavior: Behavior normal. LABS: Lab Results Component Value Date ALBUMIN 4.3 03/11/2025 BILITOT 0.4 03/11/2025 BILIDIR 0.1 03/11/2025 ALKPHOS 108 03/11/2025 ALT 42 (H) 03/11/2025 AST 31 03/11/2025 PROT 7.2 03/11/2025 INR 1.0 01/16/2024 No results found for: [id number] , [id number] Lab Results Component Value Date NA 140 05/08/2024 CREATININE 0.83 05/08/2024 BILITOT 0.4 03/11/2025 INR 1.0 01/16/2024 No results found for: AFP Lab Results Component Value Date ALBUMIN 4.3 03/11/2025 BILITOT 0.4 03/11/2025 BILIDIR 0.1 03/11/2025 ALKPHOS 108 03/11/2025 ALT 42 (H) 03/11/2025 AST 31 03/11/2025 PROT 7.2 03/11/2025 Lab Results Component Value Date WBC 7.7 05/08/2024 HGB 13.2 05/08/2024 HCT 41.8 05/08/2024 MCV 94 05/08/2024 PLT 348 05/08/2024 Lab Results Component Value Date GLUCOSE 99 05/08/2024 CALCIUM 9.3 05/08/2024 NA 140 05/08/2024 K 4.5 05/08/2024 CO2 30 05/08/2024 CL 103 05/08/2024 BUN 15 05/08/2024 CREATININE 0.83 05/08/2024 Lab Results Component Value Date INR 1.0 01/16/2024 === 12/06/23 === BI US BREAST LIMITED RIGHT - Impression - Possible sonographic correlate of the enhancing right [...] any future breast imaging appointments, please call [phone] ([phone]). I personally reviewed the images/study and I agree with the findings as stated by fellow physician, Dr. Garett Quevedo. MACRO: Dr. Garett Quevedo discussed the significance and urgency of this critical finding in person with KELY CRAIN on 12/06/2023 at 12:55 pm. (-RCF-) Findings: See findings. Signed by: Lia Bunch 12/06/2023 2:25 PM Dictation workstation: [id number] === 12/31/24 === BI MR BREAST BILATERAL WITH CONTRAST FULL PROTOCOL - Impression - No MRI evidence of malignancy in either breast. The patient will be due for a screening mammogram in approximately 4 months. BI-RADS CATEGORY: BI-RADS Category: 2 Benign. Recommendation: Annual Screening. Recommended Date: 1 Year. Laterality: Bilateral. For any future breast imaging appointments, please call [phone] ([phone]). MACRO: None Signed by: Jasvir Bass 01/01/2025 9:37 AM Dictation workstation: [id number] Primary biliary cholangitis (Multi) she will continue on UDCA and elafibranor as prescribed for PBC She will continue on MVI, Calcium supplements and vitamin D She will have a DEXA scan every 3 years She will have Fibroscan annually She will have hepatic function panel done every 6 months She will return in 6 months documented in this encounter [facility] Work Phone: 03-19-2025 Instructions Kely Amanda RN - 03/19/2025 3:20 PM EDT Images from the original note were not included. If you have any questions or need assistance, please don't hesitate to contact us. Our OFFICE is located at [facility]. Please CALL the numbers below: Dr. Ryan: Office [phone] Hepatology Nurse Coordinator: Kely CLANCY [phone] SCHEDULING Main Scheduling Number: [phone] (See below for department name when scheduling) You will get a notification through [employer] or a phone call/text to help you schedule all your tests. If you prefer, feel free to call the main scheduling number to set up any tests you need. [x] LABS (Can be done at any /[facility] Location) Due : Dec documented in this encounter [facility] Work Phone: 01-15-2025 History of Present illness Narrative Associated Problem(s): Morbid obesity (CMS/HCC) Discussed with patient their BMI (actual, verses recommended). We have also discussed lifestyle modifications: attempts to perform physical activity as chronic conditions allow, also to monitor dietary intake: increasing protein/fruits/veggies and lowering carb intake (unless contraindicated). Limit sodas, juices, and sugary drinks. Associated Problem(s): Primary biliary cirrhosis Cont with specialist Associated Problem(s): Acute rhinosinusitis Also combo of allergies and sinuses OTC med loratadine and flonase nasal spray Warm salt water gargles Fu if not better Pt states symptoms started Tuesday with sore throat, slight headaches, sinus pressure, both ear itches, eyes watery and itching, coughing, drainage, fatigue, runny/stuffy nose, no sob, no tightness, no dizziness, no fevers, no chills, sweats in the night, no fever, no nausea, no diarrhea, no vomiting, no coughing up mucus. Pt is taking IBU otc No otc home tests Images from the original note were not included. Nithya De Dios is a 59 y.o. female presents with chief complaint of Sore Throat HPI: Pt states symptoms started Tuesday with sore throat, slight headaches, sinus pressure, both ear itches, eyes watery and itching, coughing, drainage, fatigue, runny/stuffy nose, no sob, no tightness, no dizziness, no fevers, no chills, sweats in the night, no fever, no nausea, no diarrhea, no vomiting, no coughing up mucus. Pt is taking IBU otc No otc home tests Sore Throat This is a new problem. The current episode started in the past 7 days. The problem has been gradually worsening. There has been no fever. The pain is moderate. Associated symptoms include congestion, coughing and headaches. Pertinent negatives include no abdominal pain, diarrhea, drooling, ear discharge, ear pain, hoarse voice, plugged ear sensation, neck pain, shortness of breath, stridor, swollen glands, trouble swallowing or vomiting. She has had no exposure to strep or mono. She has tried NSAIDs for the symptoms. The treatment provided no relief. SUBJECTIVE: MEDICATIONS: Current Outpatient Medications Medication Instructions calcium citrate (CALCITRATE) 950 mg, Daily cefdinir (OMNICEF) 300 mg, Oral, 2 times daily ergocalciferol (VITAMIN D2) 1.25 mg, Oral, Weekly Iqirvo 80 mg, Daily RT levothyroxine (SYNTHROID, LEVOXYL) 112 mcg, Oral, Every morning, on an empty stomach Multiple Vitamin (Multivitamin Adult) tablet as directed Orally ursodiol (Actigall) 500 MG tablet ALLERGIES: Allergies Allergen Reactions Sulfamethoxazole-Trimethoprim Other Reaction(s): Unknown Sulfanilamide Other Reaction(s): Hives Rifampin Itching and Rash REVIEW OF SYMPTOMS: Review of Systems Constitutional: Negative for appetite change, chills and fever. HENT: Positive for congestion, postnasal drip, rhinorrhea and sore throat. Negative for drooling, ear discharge, ear pain, hoarse voice and trouble swallowing. Eyes: Negative for pain, discharge, redness and visual disturbance. Respiratory: Positive for cough. Negative for shortness of breath, wheezing and stridor. Cardiovascular: Negative for chest pain, palpitations and leg swelling. Gastrointestinal: Negative for abdominal pain, blood in stool, constipation, diarrhea, nausea and vomiting. Genitourinary: Negative for difficulty urinating, dysuria and frequency. Musculoskeletal: Negative for arthralgias, back pain, joint swelling, myalgias and neck pain. Skin: Negative for rash and wound. Neurological: Positive for headaches. Negative for dizziness, tremors, seizures and syncope. Psychiatric/Behavioral: Negative for behavioral problems, self-injury and suicidal ideas. The patient is not nervous/anxious. Hematological: Does not bruise/bleed easily. Endocrine: Negative for polydipsia, polyphagia and polyuria. Allergic/Immunologic: Negative for environmental allergies and food allergies. PAST MEDICAL HISTORY Past Medical History: Diagnosis Date Antimitochondrial antibody positive Autoimmune thyroiditis (CMS/HCC) BRCA2 gene mutation positive Contact dermatitis Hypothyroid (CMS/HCC) Macular degeneration Osteopenia PMS (premenstrual syndrome) Primary biliary cirrhosis Ruptured appendix Vitamin D deficiency Past Surgical History: Procedure Laterality Date APPENDECTOMY 1983 SECTION, LOW TRANSVERSE COLONOSCOPY W/ POLYPECTOMY 01/2016 Dr. Bill HUMERUS SURGERY Left upper LT MULTIPLE TOOTH EXTRACTIONS 03/23/2022 SALPINGOOPHORECTOMY Bilateral 01/21/2024 benign PATH SKIN BIOPSY x2 family history includes Breast cancer in some other family members; Diabetes in her father; Heart disease in her father; Hypertension in her father; Ovarian cancer in her maternal grandmother and another family member. OBJECTIVE: Visit Vitals BP 100/78 (BP Location: Left arm, Patient Position: Sitting, BP Cuff Size: Adult long) Pulse 75 Temp 98.5 F (Temporal) Resp 18 Wt 198 lb 12.8 oz SpO2 97% BMI 36.36 kg/m OB Status Postmenopausal Smoking Status Never BSA 1.99 m Physical Exam Vitals and nursing note reviewed. Constitutional: General: She is not in acute distress. Appearance: Normal appearance. She is obese. She is not ill-appearing. HENT: Head: Normocephalic and atraumatic. Right Ear: Tympanic membrane, ear canal and external ear normal. Left Ear: Tympanic membrane, ear canal and external ear normal. Nose: Rhinorrhea present. No congestion. Mouth/Throat: Mouth: Mucous membranes are moist. Pharynx: No oropharyngeal exudate or posterior oropharyngeal erythema. Eyes: Extraocular Movements: Extraocular movements intact. Conjunctiva/sclera: Conjunctivae normal. Neck: Vascular: No carotid bruit. Cardiovascular: Rate and Rhythm: Normal rate and regular rhythm. Pulses: Normal pulses. Heart sounds: Normal heart sounds. No murmur heard. Pulmonary: Effort: Pulmonary effort is normal. Breath sounds: Normal breath sounds. No wheezing or rhonchi. Abdominal: General: Bowel sounds are normal. There is no distension. Palpations: Abdomen is soft. There is no mass. Tenderness: There is no abdominal tenderness. Musculoskeletal: General: Normal range of motion. Cervical back: Normal range of motion and neck supple. Right lower leg: No edema. Left lower leg: No edema. Lymphadenopathy: Cervical: No cervical adenopathy. Skin: General: Skin is warm and dry. Capillary Refill: Capillary refill takes 2 to 3 seconds. Findings: No rash. Neurological: General: No focal deficit present. Mental Status: She is alert and oriented to person, place, and time. Psychiatric: Mood and Affect: Mood normal. Behavior: Behavior normal. Thought Content: Thought content normal. Judgment: Judgment normal. ASSESSMENT AND PLAN: Follow up for Next scheduled follow-up. Problem List Items Addressed This Visit Primary biliary cirrhosis Cont with specialist Acute rhinosinusitis - Primary Also combo of allergies and sinuses OTC med loratadine and flonase nasal spray Warm salt water gargles Fu if not better Relevant Medications cefdinir (Omnicef) 300 MG capsule Morbid obesity (CMS/HCC) Discussed with patient their BMI (actual, verses recommended). We have also discussed lifestyle modifications: attempts to perform physical activity as chronic conditions allow, also to monitor dietary intake: increasing protein/fruits/veggies and lowering carb intake (unless contraindicated). Limit sodas, juices, and sugary drinks. documented in this encounter [facility] 01-15-2025 Instructions Nia Srivastava NP - 01/15/2025 2:00 PM EDT Antibiotic; cefdinir 300mg twice a day for 10 days May use over the counter allergy medications such as loratadine and flonase nasal spray daily Warm salt water gargles documented in this encounter [facility] 08-14-2024 Evaluation + Plan note Associated Problem(s): Primary biliary cholangitis (Multi) She will discontinue fenobibrate every other day We will recheck ALT in a month she will continue on UDCA as prescribed for PBC She will continue on MVI, Calcium supplements and vitamin D She will have a DEXA scan every 3 years She will have Fibroscan annually She will have hepatic function panel done every 6 months She will return in 6 months [facility] Work Phone: 08-14-2024 Miscellaneous Notes Associated Problem(s): Primary biliary cholangitis (Multi) She will discontinue fenobibrate every other day We will recheck ALT in a month she will continue on UDCA as prescribed for PBC She will continue on MVI, Calcium supplements and vitamin D She will have a DEXA scan every 3 years She will have Fibroscan annually She will have hepatic function panel done every 6 months She will return in 6 months Associated Problem(s): Severe obesity (BMI 35.0-35.9 with comorbidity) (Multi) We will prescribe tirzepatide 2.5 mg subcutaneous for severe obesity and up titrate as needed documented in this encounter [facility] Work Phone: 08-14-2024 Evaluation + Plan note Associated Problem(s): Severe obesity (BMI 35.0-35.9 with comorbidity) (Multi) We will prescribe tirzepatide 2.5 mg subcutaneous for severe obesity and up titrate as needed [facility] Work Phone: 08-14-2024 History of Present illness Narrative Subjective She is unchanged. There was an ALT checked last week which was 2xULN. Alkphos remains normal. She has been taking elafibranor for about 2 months and denies any specific side effects. She is very concerned about escalating weight gain and thinks she may have gained over 60 lbs in the past 3 years. Fibroscan looks good with no significant steatosis or fibrosis. Review of Systems Constitutional: Negative for chills, fever and unexpected weight change. HENT: Negative for congestion and trouble swallowing. Respiratory: Negative for cough, shortness of breath and wheezing. Cardiovascular: Negative for chest pain. Gastrointestinal: Negative for abdominal distention, abdominal pain, constipation, diarrhea, nausea and vomiting. Genitourinary: Negative for difficulty urinating. Musculoskeletal: Negative for arthralgias and joint swelling. Skin: Negative for color change. Neurological: Negative for dizziness, speech difficulty, light-headedness and headaches. Psychiatric/Behavioral: Negative for confusion and sleep disturbance. Physical Exam Constitutional: General: She is awake. Appearance: Normal appearance. HENT: Head: Normocephalic and atraumatic. Nose: Nose normal. Mouth/Throat: Mouth: Mucous membranes are moist. Eyes: Pupils: Pupils are equal, round, and reactive to light. Neck: Thyroid: No thyroid mass. Trachea: Phonation normal. Cardiovascular: Rate and Rhythm: Normal rate and regular rhythm. Heart sounds: Normal heart sounds. No murmur heard. No gallop. Pulmonary: Effort: Pulmonary effort is normal. No respiratory distress. Breath sounds: Normal air entry. No decreased breath sounds, wheezing, rhonchi or rales. Abdominal: General: Bowel sounds are normal. There is no distension. Palpations: Abdomen is soft. Tenderness: There is no abdominal tenderness. Musculoskeletal: Cervical back: Neck supple. Right lower leg: No edema. Left lower leg: No edema. Skin: General: Skin is warm. Capillary Refill: Capillary refill takes less than 2 seconds. Neurological: General: No focal deficit present. Mental Status: She is alert and oriented to person, place, and time. Mental status is at baseline. Cranial Nerves: Cranial nerves 2-12 are intact. Motor: Motor function is intact. Psychiatric: Attention and Perception: Attention and perception normal. Mood and Affect: Mood normal. Speech: Speech normal. Behavior: Behavior normal. LABS: Lab Results Component Value Date ALBUMIN 4.0 05/08/2024 BILITOT 0.4 05/08/2024 ALKPHOS 127 (H) 05/08/2024 ALT 34 05/08/2024 AST 23 05/08/2024 PROT 6.8 05/08/2024 INR 1.0 01/16/2024 No results found for: [id number] , [id number] Lab Results Component Value Date NA 140 05/08/2024 CREATININE 0.83 05/08/2024 BILITOT 0.4 05/08/2024 INR 1.0 01/16/2024 No results found for: AFP Lab Results Component Value Date ALBUMIN 4.0 05/08/2024 BILITOT 0.4 05/08/2024 ALKPHOS 127 (H) 05/08/2024 ALT 34 05/08/2024 AST 23 05/08/2024 PROT 6.8 05/08/2024 Lab Results Component Value Date WBC 7.7 05/08/2024 HGB 13.2 05/08/2024 HCT 41.8 05/08/2024 MCV 94 05/08/2024 PLT 348 05/08/2024 Lab Results Component Value Date GLUCOSE 99 05/08/2024 CALCIUM 9.3 05/08/2024 NA 140 05/08/2024 K 4.5 05/08/2024 CO2 30 05/08/2024 CL 103 05/08/2024 BUN 15 05/08/2024 CREATININE 0.83 05/08/2024 Lab Results Component Value Date INR 1.0 01/16/2024 === 12/06/23 === BI US BREAST LIMITED RIGHT - Impression - Possible sonographic correlate of the enhancing right [...] any future breast imaging appointments, please call [phone] ([phone]). I personally reviewed the images/study and I agree with the findings as stated by fellow physician, Dr. Garett Quevedo. MACRO: Dr. Garett Quevedo discussed the significance and urgency of this critical finding in person with KELY CRAIN on 12/06/2023 at 12:55 pm. (-RCF-) Findings: See findings. Signed by: Lia Bunch 12/06/2023 2:25 PM Dictation workstation: [id number] === 11/24/23 === BI MR BREAST BILATERAL WITH CONTRAST FULL PROTOCOL - Impression - 1. Indeterminate right breast mass. Surgical consultation, MRI directed ultrasound and possible biopsy is recommended. If there is no sonographic correlate, an MRI guided biopsy is recommended. A message was sent to the referring practitioner at the time of this dictation regarding these critical findings using the [employer] notification system. A pre-procedure form was filled out. 2. No MRI evidence of malignancy in the left breast. Method of Detection: Category Smri - Screening MRI BI-RADS CATEGORY: BI-RADS Category: 4 Suspicious. Recommendation: Surgical Consultation and Biopsy. Recommended Date: Immediate. Laterality: Right. For any future breast imaging appointments, please call [phone]). MACRO: Critical Finding: Breast Imaging Abnormality. Notification was initiated on 11/25/2023 at 1:43 pm by Garett Quevedo. (-YCF-) Instructions: Surgical Consultation and Imaging Guided Biopsy. Signed by: Lia Bunch 11/25/2023 2:02 PM Dictation workstation: [id number] Severe obesity (BMI 35.0-35.9 with comorbidity) (Multi) We will prescribe tirzepatide 2.5 mg subcutaneous for severe obesity and up titrate as needed Primary biliary cholangitis (Multi) She will discontinue fenobibrate every other day We will recheck ALT in a month she will continue on UDCA as prescribed for PBC She will continue on MVI, Calcium supplements and vitamin D She will have a DEXA scan every 3 years She will have Fibroscan annually She will have hepatic function panel done every 6 months She will return in 6 months documented in this encounter [facility] Work Phone: 08-14-2024 Instructions Kely Amanda RN - 08/14/2024 10:40 AM EST If you have any questions or need assistance, please don't hesitate to contact us. Our offices are located at [facility]. Please use the numbers below when calling. Dr. Ryan: Office [phone] Hepatology Nurse Coordinator: Kely CLANCY [phone] Main Scheduling Number: [phone] (See below for department name when scheduling) documented in this encounter [facility] Work Phone: 06-08-2024 Evaluation + Plan note Associated Problem(s): Primary biliary cholangitis (Multi) We had a long discussion about her current regimen and decided a more established regimen may be reasonable to see if she can achieve normalization. We will stop ocaliva and every other day tricor and start elafibranor 80 daily We will watch enzymes closely she will continue on UDCA as prescribed for PBC She will continue on MVI, Calcium supplements and vitamin D She will have a DEXA scan every 3 years She will have Fibroscan annually She will return in 3 months [facility] Work Phone: 06-08-2024 Miscellaneous Notes Associated Problem(s): Primary biliary cholangitis (Multi) We had a long discussion about her current regimen and decided a more established regimen may be reasonable to see if she can achieve normalization. We will stop ocaliva and every other day tricor and start elafibranor 80 daily We will watch enzymes closely she will continue on UDCA as prescribed for PBC She will continue on MVI, Calcium supplements and vitamin D She will have a DEXA scan every 3 years She will have Fibroscan annually She will return in 3 months documented in this encounter [facility] Work Phone: 05-14-2024 History of Present illness Narrative Subjective She is referred by her hot packer to discuss management and treatment options for PBC. She has been on the somewhat unorthodox combo of fenofibrate 145 every other day, ocaliva 5 daily and UDCA 500 DAILY. This was set through a process of trial and error which ultimately led her to this regimen. She is fatigued but denies itching. She has no cognitive impairment or fluid overload. She rarely consumes alcohol Review of Systems Constitutional: Positive for fatigue. Negative for chills, fever and unexpected weight change. HENT: Negative for congestion and trouble swallowing. Respiratory: Negative for cough, shortness of breath and wheezing. Cardiovascular: Negative for chest pain. Gastrointestinal: Negative for abdominal distention, abdominal pain, constipation, diarrhea, nausea and vomiting. Genitourinary: Negative for difficulty urinating. Musculoskeletal: Positive for arthralgias. Negative for joint swelling. Skin: Negative for color change. Neurological: Negative for dizziness, speech difficulty, light-headedness and headaches. Psychiatric/Behavioral: Negative for confusion and sleep disturbance. LABS: Lab Results Component Value Date ALBUMIN 4.0 05/08/2024 BILITOT 0.4 05/08/2024 ALKPHOS 127 (H) 05/08/2024 ALT 34 05/08/2024 AST 23 05/08/2024 PROT 6.8 05/08/2024 INR 1.0 01/16/2024 === 03/05/24 === BI US BREAST LIMITED RIGHT - Impression - Possible sonographic correlate of the enhancing right breast mass previously noted on breast MRI 11/24/2023. Due to its subtle sonographic appearance, further evaluation with surgical consultation and MRI guided biopsy is recommended. Dr. Garett Quevedo explained the findings and recommendations to the patient at the time of exam and Kely Crain [employer] DEVELOPER. A message was sent to the referring practitioner at the time of this dictation regarding these critical findings. A pre-procedure form was filled out. Method of Detection: Category Smri - Screening MRI BI-RADS CATEGORY: BI-RADS Category: 4 Suspicious. Recommendation: Surgical Consultation and Biopsy. Recommended Date: Immediate. Laterality: Right. For any future breast imaging appointments, please call [phone] ([phone]). I personally reviewed the images/study and I agree with the findings as stated by fellow physician, Dr. Garett Quevedo. MACRO: Dr. Garett Quevedo discussed the significance and urgency of this critical finding in person with KELY CRAIN on 12/06/2023 at 12:55 pm. (-RCF-) Findings: See findings. Signed by: Lia Bunch 12/06/2023 2:25 PM Dictation workstation: [id number] Primary biliary cholangitis (Multi) We had a long discussion about her current regimen and decided a more established regimen may be reasonable to see if she can achieve normalization. We will stop ocaliva and every other day tricor and start elafibranor 80 daily We will watch enzymes closely she will continue on UDCA as prescribed for PBC She will continue on MVI, Calcium supplements and vitamin D She will have a DEXA scan every 3 years She will have Fibroscan annually She will return in 3 months documented in this encounter [facility] Work Phone: 04-26-2024 Note Patient Education Obstetrics and Gynecology [...] ? Know how (more content not included)... [facility] 02-24-2024 History of Present illness Narrative Ms. [...] mentioned that she was seen by her repair electric motor assembler for her hair loss, Workup was suspicious [...] examined, and discussed with Associated attestation - Shaka Gonzalez MD - 02/25/2024 7:45 AM EDT [...] in the note. documented in this encounter [facility] Work Phone: 02-20-2024 History of Present illness [...] No hx of OCPs , Dr. Almeida ANGLE DOZER OPERATOR in [facility] up to date. Family History: -Cousin with [id number] mutation. -Maternal aunt with BRCA2 pathogenic mutation [...] age, at 68. -Paternal cousin with cancer [id number] at unknown age. -Two paternal cousins once removed with brain cancer, at 27 and 25 respectively. -Paternal grandmother of ovarian cancer at unknown age. -Two paternal great aunt with cancer [id number] at unknown age. Interval Doing well post [...] continue well woman care with her primary equipment records supervisor. I will see her back as needed. documented in this encounter [facility] Work Phone: 01-18-2024 History and physical note [...] No hx of OCPs , Dr. Almeida ANGLE DOZER OPERATOR in [facility] up to date. Oncology History No history [...] discussed with Dr. Mary Omer MD PGY-2 [facility] Work Phone: 01-18-2024 History and physical [...] No hx of OCPs , Dr. Almeida ANGLE DOZER OPERATOR in [facility] up to date. Oncology History No history [...] Omer MD PGY-2 documented in this encounter [facility] Work Phone: 01-18-2024 Hospital Note Formatting of t his note might be different from the original. [X] QASIM richards/Dr. Hernandez February 19 @ 12:00 [facility] 58 year old female with newly [...] No hx of OCPs , Dr. Almeida ANGLE DOZER OPERATOR in [facility] up to date. [facility] Work Phone: 01-18-2024 Miscellaneous Notes [X] QASIM w/Dr. Hernandez February 19 @ 12:00 [facility] 58 year old female with newly [...] No hx of OCPs , Dr. Almeida ANGLE DOZER OPERATOR in [facility] up to date. documented in this encounter [facility] Work Phone: 12-06-2023 History of Present illness Narrative Nithya De Dios female 1965 58 y.o. [id number] Chief Complaint Biopsy consultation, abnormal MRI History [...] abnormal MRI. She is here with her [place]mitry. BREAST IMAGIN11/24/2023 Bilateral Full MRI, indicates BI-RADS Category 4. Right breast, indeterminate mass warranting MRI directed ultrasound and biopsy as indicated. 03/30/2023 [facility], Bilateral screening mammogram, indicates BI-RADS Category [...] LIMITED RIGHT; 12/06/2023 1:04 pm ACCESSION NUMBER(S): [id number] ORDERING CLINICIAN: KELY CRAIN INDICATION: MRI directed ultrasound of an enhancing right breast mass. BRCA 2 gene mutation. Family history of breast cancer. COMPARISON: Correlation with breast MRI 11/24/2023 and mammogram 03/30/2023. FINDINGS: A targeted ultrasound of the entire lower outer right breast was performed by a registered barber tool sharpener and Dr. Garett Quevedo using elastography. An [...] the time of exam and Kely Crain [employer] DEVELOPER. A message was sent to the referring [...] FULL PROTOCOL; 11/24/2023 10:13 am ACCESSION NUMBER(S): [id number] ORDERING CLINICIAN: KELY CRAIN INDICATION: High-risk supplemental [...] independent workstation, 3-D images were formulated using I3 PrecisionD including time enhancement curves, subtraction images and [...] dictation regarding these critical findings using the BeehiveID system. A pre-procedure form was filled out. [...] call. If you receive medical information from [facility] Personal Health Record, it is possible to view or see results of your biopsy or procedure before I contact you directly. I will provide recommendations for future follow up based on your biopsy results. You can see your health information, review clinical summaries from office visits & test results online when you follow your health with [facility], a personal health record. To sign up go to [email or web address]. If you need assistance with signing up or trouble getting into your account call MET [employer] Patient Line 25/04 at [phone]. Should you have any questions or concerns after biopsy, please do not hesitate to call my office at [phone]. If it has been more than a week since your biopsy was performed and you have not received results, please call my office at [phone]. Thank you for choosing [facility] and trusting me as your healthcare provider. I am honored to be a provider on your health care team and I remain dedicated to helping you achieve your health goals. IBIS Solomon documented in this encounter [facility] Work Phone: 12-06-2023 Instructions IBIS Solomon - [...] call. If you receive medical information from [facility] Personal Health Record, it is possible [...] health record. To sign up go to [email or web address]. If you need assistance with signing up or trouble getting into your account call [employer] Patient Line 25/04 at [phone]. Should you have any questions or concerns after biopsy, please do not hesitate to call my office at [phone]. If it has been more than a week since your biopsy was performed and you have not received results, please call my office at [phone]. Thank you for choosing [facility] and trusting me as your healthcare provider. I am honored to be a provider on your health care team and I remain dedicated to helping you achieve your health goals. documented in this encounter [facility] Work Phone: 11-25-2023 Note 1. Indeterminate rig ht breast mass. Surgical consultation, MRI directed ultrasound and possible biopsy is recommended. If there is no sonographic correlate, an MRI guided biopsy is recommended. A message was sent to the referring practitioner at the time of this dictation regarding these critical findings using the WelVU notification system. A pre-procedure form was filled out. 2. No MRI evidence of malignancy in the left breast. Method of Detection: Category Smri - Screening MRI BI-RADS CATEGORY: BI-RADS Category: 4 Suspicious. Recommendation: Surgical Consultation and Biopsy. Recommended Date: Immediate. Laterality: Right. For any future breast imaging appointments, please call [phone] ([phone]). MACRO: Critical Finding: Breast Imaging Abnormality. Notification was initiated on 11/25/2023 at 1:43 pm by Garett Quevedo. (-YCF-) Instructions: Surgical Consultation and Imaging Guided Biopsy. Signed by: Lia Bunch 11/25/2023 2:02 PM Dictation workstation: [id number] 11-07-2023 History of Present illness Narrative [...] No hx of OCPs , Dr. Almeida ANGLE DOZER OPERATOR in [facility] up to date. Family History: -Cousin with YRRD9latcejcdep mutation. -Maternal aunt with BRCA2 pathogenic mutation [...] age, at 68. -Paternal cousin with cancer vzr-mzifwabfo-rahsvxgye at unknown age. -Two paternal cousins once removed with brain cancer, at 27 and 25 respectively. -Paternal grandmother of ovarian cancer at unknown age. -Two paternal great aunt with cancer ran-pvgaduxzb-yenpttvcz at unknown age. Objective BSA: 1.93 meters [...] -Will send for PAT -Schedule laparoscopic BSO, [facility] -Consent signed Aurelio Resendiz MD Seen with Dr. Hernandez documented in this encounter [facility] Work Phone: 10-26-2023 History of Present illness Narrative Nithya De Dios female 1965 58 y.o. [id number] Chief Complaint High risk evaluation History Of Present Illness Nithya De Dios is a very pleasant 58 y.o. female referred to the [facility] by Nicole Guardado for high risk evaluation. She is here with her partner, Dmitry. She underwent genetic testing demonstrating BRCA 2 gene mutation. She has family history of breast cancer, see below. She denies breast surgery or biopsy. She has a history of PBC (Primary Biliary Cholangitis). She follows with Gastroenterology. BREAST IMAGIN03/30/2023 [facility], Bilateral screening mammogram, indicates BI-RADS Category [...] IS VERY IMPORTANT TO YOUR HEALTH. THE [employer] GUIDELINES RECOMMEND THAT WOMEN 40 [...] health record. To sign up go to [email or web address]. If you need assistance with signing up or trouble getting into your account call [employer] Patient Line 25/04 at [phone]. My office phone number is [phone] if you need to get in touch with me or have additional questions or concerns. Thank you for choosing [facility] and trusting me as your healthcare provider. I look forward to seeing you again at your next office visit. I am honored to be a provider on your health care team and I remain dedicated to helping you achieve your health goals. IBIS Solomon documented in this encounter [facility] Work Phone: 10-26-2023 Instructions IBIS Solomon - [...] health record. To sign up go to [email or web address]. If you need assistance with signing up or trouble getting into your account call [employer] Patient Line 25/04 at [phone]. My office phone number is [phone] if you need to get in touch with me or have additional questions or concerns. Thank you for choosing [facility] and trusting me as your healthcare provider. I look forward to seeing you again at your next office visit. I am honored to be a provider on your health care team and I remain dedicated to helping you achieve your health goals. documented in this encounter [facility] Work Phone: 10-06-2023 Attending History and physical [...] schedule for EUS. Total time 22 minutes. [facility] Work Phone: 10-06-2023 History and physical [...] time 22 minutes. documented in this encounter [facility] Work Phone: 10-05-2023 History of Present [...] time 22 minutes. documented in this encounter [facility] Work Phone: 09-21-2023 History of Present [...] No hx of OCPs , Dr. Almeida ANGLE DOZER OPERATOR in [facility] up to date. Family History: -Cousin with YSLF6mlzfpfawun mutation. -Maternal aunt with BRCA2 pathogenic mutation [...] age, at 68. -Paternal cousin with cancer knq-sanwuqdns-ymgegopjl at unknown age. -Two paternal cousins once removed with brain cancer, at 27 and 25 respectively. -Paternal grandmother of ovarian cancer at unknown age. -Two paternal great aunt with cancer lkb-kmgswrbdj-uuwpjwwdg at unknown age. Objective Visit Vitals BP [...] and then surgery. documented in this encounter [facility] Work Phone: 05-06-2023 Miscellaneous Notes Fibroscan w Ekpa 4.8 Us stable Pt sent the following MCM regarding US and fibroscan results: I didn t see these results in my chart for the [facility], so I am sending them. Can you see that Dr. Mandeep Martin sees these? Pt uploaded images of results under scanned docs. Results not viewable in Care Everywhere at this time. See scanned docs for results review. Annette Molina RN May 05, 2023 12:16 PM documented in this encounter [facility] 2023 Miscellaneous Notes Pt notified via [...] 2023 10:17 AM documented in this encounter [facility] 04-06-2023 Note HNO ID: [id number] Author: Yas Meza MD Service: ? Author Type: Physician Type: Progress Notes Filed: 04/10/2023 8:40 AM Note Text: VIRTUAL VISIT PROGRESS NOTE This is a virtual visit using MET Tech video visit. It required patient-provider interaction for the medical decision making as documented below. I have communicated my name and active licensure. The patient's identity and physical location were verified at the time of this visit. Either the patient or their legal phlebotomy services representative has been informed of the risks and benefits of -- and alternatives to -- treatment through a remote evaluation and consents to proceed with the evaluation remotely. 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, after initial evaluation for persistent pruritus but nl liver enzymes -s/p liver biopsy done at [facility] 07/06/2013 w early stage disease Restarted [...] 09/2019 -s/p T+A -s/p appy age 18 -T5T3-6-2-9, s/p CS x 1 -h/o hypothyroidism -h/o osteopenia -h/o pre-diabetes Since last seen -labs done 03/28/23 at [facility] Ast 32 Alt 58 Alkphos 150 Alb 3.5 T bili 0.3 -s/p mammogram done - wnl -s/p BMD done last at [facility] - told osteopenia, but no worse -weight stable ~ 175#, 5'2 (BMI 31.1) -continuing on malathi (1250 mg/d , equivalent to 15.5553599358 mg/kg/d) along w fenofibrate, ocaliva (2.5) - worried about increasing itching -had fibroscan done at [facility] ~ 1 -2 yrs HISTORY REVIEWED (electronic [...] early stage fibrosis if any; repeated at [facility] (?results) Last BMD done at [facility] 12/2019 -> osteropenia (unchanged) Still w mildly elevated alk phos on labs; concerned re risk of pruritus if increased dose of ocaliva vs loose stools Long discussion today regarding issues and options PLAN: Suggested: 1. PBC -continue malathi dose (1250 mg/d ) - Continue fenofibrate at current dose -continue current dose of ocaliva -repeat VCTE (vs ARFII) at [facility]; if no change in Ekpa, would hold off on making any dose changes, but if suggestion of worsening,would have a low threshold to incr dose -serial labs -BMD locally per protocol Follow-up on the phone RTC ~1 yr Yas Meza MD [facility] 04-06-2023 History of Present illness Narrative VIRTUAL VISIT PROGRESS NOTE This is a virtual visit using MET [employer] video visit. It required patient-provider interaction for the medical decision making as documented below. I have communicated my name and active licensure. The patient's identity and physical location were verified at the time of this visit. Either the patient or their legal phlebotomy services representative has been informed of the risks and benefits of -- and alternatives to -- treatment through a remote evaluation and consents to proceed with the evaluation remotely. 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, after initial evaluation for persistent pruritus but nl liver enzymes -s/p liver biopsy done at [facility] 07/06/2013 w early stage disease Restarted [...] 09/2019 -s/p T+A -s/p appy age 18 -S4O7-6-8-6, s/p CS x 1 -h/o hypothyroidism -h/o osteopenia -h/o pre-diabetes Since last seen -labs done 03/28/23 at [facility] Ast 32 Alt 58 Alkphos 150 Alb 3.5 T bili 0.3 -s/p mammogram done - wnl -s/p BMD done last at [facility] - told osteopenia, but no worse -weight stable ~ 175#, 5'2 (BMI 31.1) -continuing on malathi (1250 mg/d , equivalent to 15.9756454813 mg/kg/d) along w fenofibrate, ocaliva (2.5) - worried about increasing itching -had fibroscan done at [facility] ~ 1 -2 yrs HISTORY REVIEWED (electronic [...] early stage fibrosis if any; repeated at [facility] (?results) Last BMD done at [facility] 12/2019 -> osteropenia (unchanged) Still w mildly elevated alk phos on labs; concerned re risk of pruritus if increased dose of ocaliva vs loose stools Long discussion today regarding issues and options PLAN: Suggested: 1. PBC -continue malathi dose (1250 mg/d ) - Continue fenofibrate at current dose -continue current dose of ocaliva -repeat VCTE (vs ARFII) at [facility]; if no change in Ekpa, would hold off on making any dose changes, but if suggestion of worsening,would have a low threshold to incr dose -serial labs -BMD locally per protocol Follow-up on the phone RTC ~1 yr Yas Meza MD documented in this encounter [facility] 01-12-2023 Hospital Discharge instructions Follow Up Care 01/12/2023 11:12:44 With:Eh URIAS, JEFFREY Blandon, [facility] Address: [address] [place] [address], [facility] [address] [phone]- [phone] When:3 months [facility] 01-04-2023 Miscellaneous Notes Received the following Atonometrics message: Dr. Paradise Martin wanted to see lab results in 4 months Constanza Corona RN January 04, 2023 3:18 PM documented in this encounter [facility] 10-11-2022 Note HNO ID: [id number] Author: Yas Meza MD Service: ? Author Type: Physician Type: Progress Notes Filed: 10/15/2022 4:52 PM Note Text: VIRTUAL VISIT PROGRESS NOTE This is a virtual visit using MET [employer] video visit. It required patient-provider interaction for the medical decision making as documented below. 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, after initial evaluation for persistent pruritus but nl liver enzymes -s/p liver biopsy done at [facility] 07/06/2013 w early stage disease Restarted [...] 09/2019 -s/p T+A -s/p appy age 18 -H0M4-8-1-0, s/p CS x 1 -h/o hypothyroidism -h/o osteopenia -h/o pre-diabetes Since last seen -labs done 09/22 at [facility] Ast 30 Alt 53 Alkphos 153 Alb 3.6 -weight still uptrending - now ~176 lbs/ 80kg -continuing on malathi (12.2697380425 mg/kg/d, given wgt =176), fenofibrate, ocaliva (2.5) [...] prob early stage fibrosis BMD done at [facility] 12/2019 -> osteropenia Mildly elevated alk phos [...] labs RTC ~6 months Yas Meza MD [facility] 10-11-2022 History of Present illness Narrative VIRTUAL VISIT PROGRESS NOTE This is a virtual visit using MET [employer] video visit. It required patient-provider interaction for the medical decision making as documented below. 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, after initial evaluation for persistent pruritus but nl liver enzymes -s/p liver biopsy done at [facility] 07/06/2013 w early stage disease Restarted [...] 09/2019 -s/p T+A -s/p appy age 18 -P9F8-4-6-4, s/p CS x 1 -h/o hypothyroidism -h/o osteopenia -h/o pre-diabetes Since last seen -labs done 09/22 at [facility] Ast 30 Alt 53 Alkphos 153 Alb 3.6 -weight still uptrending - now ~176 lbs/ 80kg -continuing on malathi (12.8936473201 mg/kg/d, given wgt =176), fenofibrate, ocaliva (2.5) [...] along w fenofibrate ~05/21/20; cut dose by 12 after elevated ast / alt 07/2020 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 It required patient-provider interaction for the medical decision making as documented below. Nithya De Dios is a 56 year old female seen for followup of PBC, diagnosed ~12/2005, after initial evaluation for persistent pruritus but nl liver enzymes -s/p liver biopsy done at [facility] 07/06/2013 w early stage disease Restarted [...] 09/2019 -s/p T+A -s/p appy age 18 -L2W9-6-6-8, s/p CS x 1 -h/o hypothyroidism -h/o osteopenia Since last seen -recent labs done done at [facility] 02/18/202209/2021 AST 46 35 ALT 85 [...] early stage fibrosis Last BMD done at [facility] 12/2019 -> osteropenia Mildly elevated liver enzymes [...] Yas Meza MD documented in this encounter [facility] 03-02-2022 Miscellaneous Notes Called Nithya De Dios to remind them of an appointment with Dr. Meza on 03/03/22. Spoke with patient. Appointment confirmed. documented in this encounter [facility] Evaluation + Plan note Future Appointments Appointment Date:01/18/2024 10:45:00 AM Scheduled Provider:Leandro BILL MD Location:[facility] Appointment Type:BADH Follow Up Future Scheduled TestsVitamin D 25 Hydroxy 01/12/23CBC w/ Auto Diff 01/12/23Hepatic Function Panel 01/12/23BD Bone Density DEXA Peripheral Study 01/12/23 [facility] Evaluation + Plan note Future Appointments Appointment Date:01/18/2024 10:45:00 AM Scheduled Provider:Leandro BILL MD Location:[facility] Appointment Type:BAD Follow Up Future Scheduled TestsVitamin D 25 Hydroxy 01/12/23CBC w/ Auto Diff 01/12/23Hepatic Function Panel 01/12/23BD Bone Density DEXA Peripheral Study 03/04/23 [facility] Evaluation + Plan note Future Appointments Appointment Date:11/14/2023 10:00:00 AM Scheduled Provider:Vitaly Stauffer MD Location:[facility] Appointment Type:BADH Follow Up Appointment Date:01/18/2024 10:45:00 AM Scheduled Provider:Leandro BILL MD Location:[facility] Appointment Type:BADH Follow Up Future Scheduled TestsVitamin D 25 Hydroxy 01/12/23CBC w/ Auto Diff 01/12/23Hepatic Function Panel 01/12/23BD Bone Density DEXA Peripheral Study 03/04/23 [facility] Evaluation + Plan note Future Appointments Appointment Date:01/18/2024 11:00:00 AM Scheduled Provider:Vitaly Stauffer MD Location:[facility] Appointment Type:BADH Follow Up Future Scheduled TestsVitamin D 25 Hydroxy 01/12/23CBC w/ Auto Diff 01/12/23Hepatic Function Panel 01/12/23BD Bone Density DEXA Peripheral Study 03/04/23 [facility] Evaluation + Plan note Future Appointments Appointment Date:04/18/2024 10:15:00 AM Scheduled Provider:Vitaly Stauffer MD Location:[facility] Appointment Type:BAD Follow Up Future Scheduled TestsCBC w/ Auto Diff 01/18/24Comprehensive Metabolic Panel 01/18/24BD Bone Density DEXA Peripheral Study 03/04/23 [facility] Evaluation + Plan note Future Appointments Appointment Date:07/09/2024 10:15:00 AM Scheduled Provider:Vitaly Stauffer MD Location:[facility] Appointment Type:BAD Follow Up Future Scheduled TestsCBC w/ Auto Diff 01/18/24Comprehensive Metabolic Panel 01/18/24 [facility] Evaluation note Diagnosis Primary biliary cholangitis (HCC) [facility] Diagnosis Primary [facility]ang[facility] (HCC)- [facility] Primary [facility] cholang[facility] (HCC)- Primary [facility] Diagnosis Primary biliary cholangitis (HCC)- Primary [facility] BRCA positive- Primary Genetic susceptibility to malignant neoplasm of breast documented in this encounter [facility] Work Phone: Evaluation note* Diagnosis BRCA positive- Primary 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) documented in this encounter [facility] Work Phone: Evaluation note* Diagnosis BRCA positive 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) documented in this encounter [facility] Work Phone: [phone] note* Diagnosis Breast cancer screening, high risk patient- Primary Screening mammogram for high-risk patient BRCA2 gene mutation positive documented in this encounter [facility] Work Phone: [phone] note* Diagnosis BRCA gene mutation positive- Primary BRCA positive Genetic susceptibility to malignant neoplasm of breast BRCA gene mutation positive- Primary BRCA gene mutation positive documented in this encounter [facility] Work Phone: [phone] note* Diagnosis BRCA gene mutation positive- Primary BRCA2 gene mutation positive Breast cancer screening, high risk patient Screening mammogram for high-risk patient BRCA gene mutation positive documented in this encounter [facility] Work Phone: [phone] note* Diagnosis BRCA gene mutation positive- Primary BRCA2 gene mutation positive Breast cancer screening, high risk patient Screening mammogram for high-risk patient BRCA gene mutation positive documented in this encounter [facility] Work Phone: [phone] note* Diagnosis BRCA gene mutation positive- Primary Abnormal MRI, breast- Primary Mass of lower outer quadrant of right breast Situational anxiety BRCA gene mutation positive documented in this encounter [facility] Work Phone: [phone] note* Diagnosis BRCA gene mutation positive- Primary Abnormal findings on diagnostic imaging of breast Other (abnormal) findings on radiological examination of breast BRCA gene mutation positive documented in this encounter [facility] Work Phone: [phone] note* Diagnosis BRCA gene mutation positive- Primary Abnormal MRI Other nonspecific (abnormal) findings on radiological and other examinations of body structure BRCA gene mutation positive documented in this encounter [facility] Work Phone: [phone] note* Diagnosis BRCA gene mutation positive- Primary Abnormal MRI Other nonspecific (abnormal) findings on radiological and other examinations of body structure BRCA gene mutation positive documented in this encounter [facility] [facility] Work Phone: [phone] note* Diagnosis BRCA gene mutation positive- Primary Abnormal MRI, breast Mass of lower outer quadrant of right breast BRCA gene mutation positive documented in this encounter [facility] Work Phone: [phone] note* Diagnosis BRCA gene mutation positive- Primary Abnormal mammogram Abnormal mammogram, unspecified BRCA gene mutation positive documented in this encounter [facility] Work Phone: [phone] note* Diagnosis BRCA gene mutation positive- Primary BRCA gene mutation positive Postoperative pain Other acute postoperative pain documented in this encounter [facility] Work Phone: [phone] note* Diagnosis BRCA positive- Primary Genetic susceptibility to malignant neoplasm of breast documented in this encounter [facility] Work Phone: [phone] note* Diagnosis Hypothyroidism, unspecified type- Primary Vitamin D deficiency documented in this encounter [facility] Work Phone: [phone] note* Diagnosis Avitaminosis D- Primary Unspecified vitamin D deficiency documented in this encounter [facility] HealthcareEvaluation note* Diagnosis Primary biliary cholangitis (Multi)- Primary Severe obesity (BMI 35.0-35.9 with comorbidity) (Multi)- Primary documented in this encounter [facility] Work Phone: [phone] note* Diagnosis Primary biliary cholangitis (Multi)- Primary documented in this encounter [facility] Work Phone: [phone] note* Diagnosis Primary biliary cholangitis (Multi)- Primary Severe obesity (BMI 35.0-35.9 with comorbidity) (Multi)- Primary BRCA positive Genetic susceptibility to malignant neoplasm of breast documented in this encounter [facility] Work Phone: [phone] note* Diagnosis Acute rhinosinusitis- Primary Primary biliary cirrhosis Biliary cirrhosis Morbid obesity (CMS/HCC) Morbid obesity documented in this encounter [facility] HealthcareEvaluation note* Diagnosis Primary biliary cholangitis (Multi)- Primary Severe obesity (BMI 35.0-35.9 with comorbidity) (Multi)- Primary Primary biliary cholangitis (Multi) documented in this encounter [facility] Work Phone: [phone] note* Diagnosis Acute rhinosinusitis- Primary Primary biliary cirrhosis (HCC) Biliary cirrhosis Morbid obesity (CMS-HCC) Morbid obesity Bursitis of left foot- Primary Acquired keratoderma Pain in left foot Pain in soft tissues of limb Difficulty walking Difficulty in walking documented in this encounter [facility] Narrative No data available for this section [facility] Hospital Discharge instructions No data available for this section [facility] Progress note No data available for this section [facility] Reason for referral (narrative)* Diagnostic Procedure Only (Routine) - Pending Review Specialty Diagnoses / Procedures Referred By Rosaura gonzalez Referred To Contact US IMAGING Diagnoses Primary biliary cholangitis (HCC) Procedures US ELASTOGRAPHY LIVER ULTRASOUND ELASTOGRAPHY PARENCHYMA Yas Meza MD [address] [id number] [facility] Referral ID Status Reason Start Date Expiration Date Visits Requested Visits Authorized [id number] Pending Review Auto-Generat ed Referral 2023 05/06/2024 1 1 * Diagnostic Procedure Only (Routine) - Pending Review Specialty Diagnoses / Procedures Referred By Rosaura gonzalez Referred To Contact US IMAGING Diagnoses Primary biliary cholangitis (HCC) Procedures US ABD RIGHT UPPER QUADRANT US ABDOMINAL REAL TIME W/IMAGE LIMITED Yas Meza MD [address] [place] [address] Us Imaging Referral ID Status Reason Start Date Expiration Date Visits Requested Visits Authorized [id number] Pending Review Auto-Generat ed Referral 2023 05/06/2024 1 1 [facility] for referral (narrative) , with dr. roz ryan at for PBC Referred by: Eh URIAS, Vitaly Hernandes [facility] Reason for referral (narrative)* Consultation (Routine) - Authorized Specialty Diagnoses / Procedures Referred By Contac t Referred To Contact Hepatology Diagnoses Primary biliary cholangitis (Multi) Procedures Follow [place] [address] [address] [facility] Medicine[place] [address] Referral ID Status Reason Start Date Expiration Date V isits Requested Visits Authorized [id number] Authorized 05/14/2024 05/14/2025 1 1 * Gastroenterology (Routine) - Pending Review Specialty Diagnoses / Procedures Referred By Rosaura t Referred To Contact Gastroenterology Diagnoses Primary biliary cholangitis (Multi) Procedures Liver Elastography (Fibroscan) [place] [address] [facility] [place] [address] Referral ID Status Reason Start Date Expiration Date V isits Requested Visits Authorized [id number] Pending Review 05/14/2024 05/14/2025 1 1 [facility] Work Phone: Reason for visit Narrative* Imaging (Routine) - Authorized Specialty Diagnoses / Procedures Referred By Rosaura t Referred To Contact Radiology Diagnoses BRCA positive Procedures MR breast bilateral w contrast full protocol Kely Crain, CURRICULUM ASSISTANT-ORACLE FINANCIALS DEVELOPER [address] [place] [address] Phone: tel: fax: Referral ID Status Reason Start Date Expiration Date Visits Requested Visits Authorized [id number] Authorized Perform Procedure 04/26/2024 04/26/2025 1 1 [facility] Work Phone: Summary Purpose Family History No Family History [...] BI breast biopsy clip imaging Kely Crain, CURRICULUM ASSISTANT-ORACLE FINANCIALS DEVELOPER [address] [place] [address] Referral ID Status Reason Start Date Expiration Date Visits Requested Visits Authorized [id number] Authorized Perform Procedure 12/06/2023 12/05/2024 1 1 Specialty Diagnoses / Procedures Referred By Contac t Referred To Contact Radiology Diagnoses Abnormal MRI Procedures BI US breast limited right Kely Crain CURRICULUM ASSISTANT-ORACLE FINANCIALS DEVELOPER [address] [place] [address] Referral ID Status Reason Start Date Expiration Date Visits Requested Visits Authorized [id number] Authorized Perform Procedure 11/25/2023 11/24/2024 1 1 Specialty Diagnoses / Procedures Referred By Contac t Referred To Contact Radiology Diagnoses Abnormal findings on diagnostic imaging of breast Procedures BI breast biopsy clip imaging Kely Crain, CURRICULUM ASSISTANT-ORACLE FINANCIALS DEVELOPER [address] [place] [address] Referral ID Status Reason Start Date Expiration Date Visits Requested Visits Authorized [id number] Authorized Perform Procedure 11/25/2023 11/24/2024 1 1 Specialty Diagnoses / Procedures Referred By Contac t Referred To Contact Radiology Diagnoses Abnormal MRI, breast Mass of lower outer quadrant of right breast Procedures BI MR breast vacuum assisted biopsy Kely Crain, CURRICULUM ASSISTANT-ORACLE FINANCIALS DEVELOPER [address] [place] [address] Referral ID Status Reason Start Date Expiration Date Visits Requested Visits Authorized [id number] Authorized Perform Procedure 12/06/2023 12/05/2024 1 1 Specialty Diagnoses / Procedures Referred By Contac t Referred To Contact Radiology Diagnoses BRCA2 gene mutation positive Breast cancer screening, high risk patient Procedures MR breast bilateral w contrast full protocol Kely Crain, CURRICULUM ASSISTANT-ORACLE FINANCIALS DEVELOPER [address] [place] [address] Referral ID Status Reason Start Date Expiration Date Visits Requested Visits Authorized [id number] Pending Review Perform Procedure 10/26/2023 10/25/2024 1 1 Specialty Diagnoses / Procedures Referred By Contac t Referred To Contact Radiology Diagnoses BRCA2 gene mutation positive Breast cancer screening, high risk patient Procedures BI mammo bilateral screening tomosynthesis Kely Crain, CURRICULUM ASSISTANT-ORACLE FINANCIALS DEVELOPER [address] [place] [id number] Referral ID Status Reason Start Date Expiration Date Visits Requested Visits Authorized [id number] Authorized Perform Procedure 10/26/2023 10/25/2024 1 1 Specialty Diagnoses / Procedures Referred By Contac t Referred To Contact Gastroenterology Diagnoses 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) Procedures Endoscopic Ultrasound (Upper) [place] [address] [facility] [place] [address] Referral ID Status Reason Start Date Expiration Date V isits Requested Visits Authorized [id number] Authorized 10/05/2023 10/04/2024 1 1 Additional Source Comments Source Comments (unrecognize d section and content) In the event this informatio n is protected by the Federal Confidentiality of Alcohol and Drug Abuse Patient Records regulations: The Federal rules restrict any use of the information to criminally investigate or prosecute any alcohol or drug abuse patient.[facility] the event this information is protected by the Federal Confidentiality of Alcohol and Drug Abuse Patient Records regulations: The Federal rules restrict any use of the information to criminally investigate or prosecute any alcohol or drug abuse patient.[facility] Hospital[facility] the event this information is protected by the Federal Confidentiality of Alcohol and Drug Abuse Patient Records regulations: The Federal rules restrict any use of the information to criminally investigate or prosecute any alcohol or drug abuse patient.[facility] the event this information is protected by the Federal Confidentiality of Alcohol and Drug Abuse Patient Records regulations: The Federal rules restrict any use of the information to criminally investigate or prosecute any alcohol or drug abuse patient.[facility] HospitalIn the event this information is protected by the Federal Confidentiality of Alcohol and Drug Abuse Patient Records regulations: The Federal rules restrict any use of the information to criminally investigate or prosecute any alcohol or drug abuse patient.[facility] Hospital[facility] the event this information is protected by the Federal Confidentiality of Alcohol and Drug Abuse Patient Records regulations: The Federal rules restrict any use of the information to criminally investigate or prosecute any alcohol or drug abuse patient.[facility] HospitalIn the event this information is protected by the Federal Confidentiality of Alcohol and Drug Abuse Patient Records regulations: The Federal rules restrict any use of the information to criminally investigate or prosecute any alcohol or drug abuse patient.[facility] Hospital[facility] the event this information is protected by the Federal Confidentiality of Alcohol and Drug Abuse Patient Records regulations: The Federal rules restrict any use of the information to criminally investigate or prosecute any alcohol or drug abuse patient.[facility] Reason for Visit (unrecogniz ed section and content) Reason Comments Liver Disease Specialty Diagnoses / Procedures Referred By Contac t Referred To Contact [facility] [place] Diagnoses Primary biliary cholangitis (HCC) [K74.3] Procedures REFERRAL TO [facility]CIAL COUNSEL[facility] Video visit Yas Meza MD [address] [place] [address] [facility] [address] [place] [address] Referral ID Status Reason Start Date Expiration Date Visits Requested Visits Authorized [id number] Closed Financial Clearance Required - OON Payor OON Notification Letter Patient cleared - OON Required Payment Collected 03/23/2022 10/11/2022 1 1 Reason Comments Appointment Specialty Diagnoses / Procedures Referred By Contact Referred To Contact Gastroenterology / GASTROENTEROLOGY Diagnoses Primary bilary cholangitis Procedures REFERRAL TO [facility] FINANCIAL COUNSELOR EST VIRTUAL VISIT PATIENT Yas Meza MD [address] [facility] [place] [place] [address] Yas Meza MD [address] [place] [address] Referral ID Status Reason Start Date Expiration Date Visits Requested Visits Authorized [id number] Closed Financial Clearance Required - Self Pay Financial Clearance Required - OON Payor OON Notification Letter Patient Cleared Patient chose to pay or Auth obtained after CCN denied 10/13/2021 01/11/2022 1 1 Reason Comments Orders Reason Comments Results Specialty Diagnoses / Procedures Referred By Rosaura gonzalez Referred To Contact [facility] Diagnoses Primary biliary cholangitis (HCC) Procedures virtual visit Yas Meaz MD [address] [place] [address] [facility] [address] [place] [address] Referral ID Status Reason Start Date Expiration Date V isits Requested Visits Authorized [id number] Closed OON/Self Pay Override 01/18/2023 04/19/2023 1 1 Reason Comments Results Specialty Diagnoses / Procedures Referred By Rosaura t Referred To Contact Gastroenterology Diagnoses 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) Procedures Endoscopic Ultrasound (Upper) [place] [address] [facility] [place] [address] Referral ID Status Reason Start Date Expiration Date V isits Requested Visits Authorized [id number] Authorized 10/05/2023 10/04/2024 1 1 Reason Comments New Patient Visit High Risk Breast Cancer Specialty Diagnoses / Procedures Referred By Rosaura t Referred To Contact Surgical Oncology Diagnoses BRCA2 gene mutation [place], [place] [address] [address] Department [place] [address] Referral ID Status Reason Start Date Expiration Date Visits Requested Visits Authorized [id number] Authorized Specialty Services Required 09/06/2023 09/05/2024 1 1 Reason Comments Follow-up Specialty Diagnoses / Procedures Referred By Contac t Referred To Contact Radiology Diagnoses BRCA2 gene mutation positive Breast cancer screening, high risk patient Procedures MR breast bilateral w contrast full protocol Kely Crain, CURRICULUM ASSISTANT-ORACLE FINANCIALS DEVELOPER [address] [facility] [place] [address] [place] [address] Referral ID Status Reason Start Date Expiration Date Visits Requested Visits Authorized [id number] Authorized Perform Procedure 10/26/2023 10/25/2024 1 1 Reason Comments Abnormal Breast Imaging Specialty Diagnoses / Procedures Referred By Contac t Referred To Contact Radiology Diagnoses Abnormal findings on diagnostic imaging of breast Procedures BI breast biopsy clip imaging Kely Crain CURRICULUM ASSISTANT-ORACLE FINANCIALS DEVELOPER [address] [place] [address] Referral ID Status Reason Start Date Expiration Date Visits Requested Visits Authorized [id number] Authorized Perform Procedure 11/25/2023 11/24/2024 1 1 Specialty Diagnoses / Procedures Referred By Contac t Referred To Contact Radiology Diagnoses Abnormal MRI Procedures BI US breast limited right Kely Crain CURRICULUM ASSISTANT-ORACLE FINANCIALS DEVELOPER [address] [place] [address] Referral ID Status Reason Start Date Expiration Date Visits Requested Visits Authorized [id number] Authorized Perform Procedure 11/25/2023 11/24/2024 1 1 Specialty Diagnoses / Procedures Referred By Contac t Referred To Contact Radiology Diagnoses Abnormal MRI Procedures BI US guided breast localization and biopsy right Kely Crain CURRICULUM ASSISTANT-ORACLE FINANCIALS DEVELOPER [address] [place] [address] Referral ID Status Reason Start Date Expiration Date Visits Requested Visits Authorized [id number] Canceled Perform Procedure 11/25/2023 11/24/2024 1 1 Specialty Diagnoses / Procedures Referred By Contac t Referred To Contact Radiology Diagnoses Abnormal MRI, breast Mass of lower outer quadrant of right breast Procedures BI MR breast vacuum assisted biopsy Paras Kely Mariam, CURRICULUM ASSISTANT-ORACLE FINANCIALS DEVELOPER [address] [place] [phone] Referral ID Status Reason Start Date Expiration Date Visits Requested Visits Authorized [id number] Authorized Perform Procedure 12/06/2023 12/05/2024 1 1 Specialty Diagnoses / Procedures Referred By Contac t Referred To Contact Radiology Diagnoses Abnormal mammogram Procedures BI breast biopsy clip imaging SengKely sargent, CURRICULUM ASSISTANT-ORACLE FINANCIALS DEVELOPER [address] [facility] [address] [place] [phone] Referral ID Status Reason Start Date Expiration Date Visits Requested Visits Authorized [id number] Authorized Perform Procedure 12/06/2023 12/05/2024 1 1 Specialty Diagnoses / Procedures Referred By Contac t Referred To Contact Diagnoses BRCA gene mutation positive BRCA gene mutation positive [Z15.01, Z15.09] Procedures AK LAPAROSCOPY W/RMVL ADNEXAL STRUCTURES Laparoscopic Bilateral [place] [address] [place] [address] [facility] [place] [address] [place] [address] Referral ID Status Reason Start Date Expiration Date Visits Re quested Visits Authorized [id number] 1 1 Reason Onset Date Comments Med Refill 07/05/2024 Reason Comments Consult Reason Comments Sore Throat Reason Comments Follow-up Review fibroscan and blood work Reason Comments Foot Callouses Established patient presents today for corn/ callus on the left foot. Patient also relates heel spurs with left foot, patient states it's been ongoing since last year. Care Teams (unrecognized sec tion and content) Soda 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 Relationship Specialty Start Date End Date Alok Choi Jr. [address] [phone] PCP - General 04/21/06 Soda 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 Relationship Specialty Start Date End Date Maria De JesusAlok Jr. [address] [place] [address] PCP - General 04/21/06 Soda 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 Relationship Specialty Start Date End Date Maria De JesusAlok Jr. [address] [place] [address] PCP - General 04/21/06 Soda 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 Relationship Specialty Start Date End Date Maria De JesusAlok Jr. [address] [place] [address] PCP - General 04/21/06 Soda 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 Relationship Specialty Start Date End Date Maria De JesusAlok Jr. [address] [place] [address] PCP - General 04/21/06 Soda 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 Relationship Specialty Start Date End Date Maria De JesusAlok Jr. [address] [place] [address] PCP - General 04/21/06 Soda 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 Relationship Specialty Start Date End Date Maria De JesusAlok Jr. [address] [place] [address] PCP - General 04/21/06 Soda 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 Relationship Specialty Start Date End Date Shaikh Guo MD [address] [place] [address] PCP - General Internal Medicine 09/08/23 Soda 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 Relationship Specialty Start Date End Date Shaikh Guo MD [address] [place] [address] PCP - General Internal Medicine 09/08/23 Soda 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 Relationship Specialty Start Date End Date Shaikh Guo MD [address] [place] [address] PCP - General Internal Medicine 09/08/23 Soda 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 Relationship Specialty Start Date End Date Shaikh Guo MD [address] [place] [address] PCP - General Internal Medicine 09/08/23 [place] [address] [place] [address] 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 11/07/23 Soda 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 Relationship Specialty Start Date End Date Shaikh Guo MD PCP - General Internal Medicine 09/08/23 [place] [address] [place] [address] 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 11/07/23 Soda 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 Relationship Specialty Start Date End Date Shaikh Guo MD PCP - General Internal Medicine 09/08/23 [place] [address] [place] [address] 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 11/07/23 Soda 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 Relationship Specialty Start Date End Date Shaikh Guo MD PCP - General Internal Medicine 09/08/23 [place] [address] [place] [address] 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 11/07/23 Soda 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 Relationship Specialty Start Date End Date Shaikh Guo MD PCP - General Internal Medicine 09/08/23 [place] [address] [place] [address] 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 11/07/23 Soda 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 Relationship Specialty Start Date End Date Shaikh Guo MD PCP - General Internal Medicine 09/08/23 [place] [address] [place] [address] 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 11/07/23 Soda 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 Relationship Specialty Start Date End Date Shaikh Guo MD PCP - General Internal Medicine 09/08/23 [place] [address] [place] [address] 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 11/07/23 Soda 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 Relationship Specialty Start Date End Date Shaikh Guo MD [address] [place] [address] PCP - General Internal Medicine 12/20/23 [place] [address] [place] [address] 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 11/07/23 Soda 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 Relationship Specialty Start Date End Date Shaikh Guo MD [address] [place] [address] PCP - General Internal Medicine 12/20/23 [place] [address] [place] [address] 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 11/07/23 Soda 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 Relationship Specialty Start Date End Date Shaikh Guo MD [address] [place] [address] PCP - General Internal Medicine 12/20/23 [place] [address] [place] [address] 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 11/07/23 Soda 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 Relationship Specialty Start Date End Date Shaikh Guo MD [address] [place] [address] PCP - General Internal Medicine 12/20/23 [place] [address] [place] [address] 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 11/07/23 Soda 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 Relationship Specialty Start Date End Date Shaikh Guo MD [address] [place] [address] PCP - General Internal Medicine 12/20/23 [place] [address] [place] [address] 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 11/07/23 Soda 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 Relationship Specialty Start Date End Date Shaikh Guo MD PCP - General Internal Medicine 03/30/23 Soda 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 Relationship Specialty Start Date End Date Shaikh Guo MD PCP - General Internal Medicine 03/30/23 Soda 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 Relationship Specialty Start Date End Date Shaikh Guo MD [address] [place] [address] PCP - General Internal Medicine 12/20/23 [place] [address] [place] [address] 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 11/07/23 Soda 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 Relationship Specialty Start Date End Date Shaikh Gou MD [address] [place] [address] PCP - General Internal Medicine 12/20/23 [place] [address] [place] [address] 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 11/07/23 Soda 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 Relationship Specialty Start Date End Date Shaikh Guo MD [address] [place] [address] PCP - General Internal Medicine 12/20/23 [place] [address] [place] [address] 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 11/07/23 Soda 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 Relationship Specialty Start Date End Date Shaikh Guo MD PCP - General Internal Medicine 03/30/23 Soda 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 Relationship Specialty Start Date End Date Rian Mills MD [address] [place] [phone] PCP - General Family Medicine 01/15/25 Soda 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 Relationship Specialty Start Date End Date Rian Mills MD [address] [place] [address] PCP - General Family Medicine 01/15/25 Soda 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 Relationship Specialty Start Date End Date Shaikh Guo MD [address] [place] [address] PCP - General Internal Medicine 12/20/23 [place] [address] [place] [address] 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 11/07/23 Soda 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 Relationship Specialty Start Date End Date Rian Mills MD [address] [place] [phone] PCP - General Family Medicine 01/15/25 Soda 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 Relationship Specialty Start Date End Date Rian Mills MD [address] [place] [phone] PCP - General Family Medicine 01/15/25 INFORMATION SOURCE (unrecogn ized section and content) DATE CREATED AUTHOR 03/29/2022 [facility] dical Specialist DATE CREATED AUTHOR AUTHOR'S ORGANIZ ATION 01/08/2023 [facility] DATE CREATED AUTHOR AUTHOR'S ORGANIZ ATION 05/07/2023 [facility] DATE CREATED AUTHOR AUTHOR'S ORGANIZ ATION 02/28/2024 [facility] DATE CREATED AUTHOR AUTHOR'S ORGANIZ ATION 05/27/2024 [facility] DATE CREATED AUTHOR AUTHOR'S ORGANIZ ATION 01/09/2025 [facility] DATE CREATED AUTHOR AUTHOR'S ORGANIZ ATION 03/13/2025 [facility] DATE CREATED AUTHOR AUTHOR'S ORGANIZ ATION 03/25/2025 [facility] DATE CREATED AUTHOR AUTHOR'S ORGANIZ ATION 04/14/2025 [facility] DEPARTMENT DATE CREATED AUTHOR AUTHOR'S ORGANIZ ATION 04/15/2025 [facility] EPIC Scheduled Active and Recently [...] BE BASED ON THE PRIMARY CLINICAL RECORDS. [employer] [facility]. provides no warranty or guarantee of the accuracy or completeness of information in this document.
[2025-04-20 09:15] LABS: Anion Gap 13.7; Blood Urea Nitrogen 15.0 mg/dL (7.0-18.0); Calcium 9.1 mg/dL (8.5-10.1); Carbon Dioxide 29.2 mmol/L (21.0-32.0); Chloride 106 mmol/L (98-107); Estimated GFR (African America >60 (>=60 mL/min/1.73m^2); Estimated GFR (Non-African Ame >60 (>=60 mL/min/1.73m^2); Free T3 2.29 pg/mL (2.18-3.98); Glucose 98 mg/dL (74-106); Potassium 3.9 mmol/L (3.5-5.1); Sodium 145 mmol/L (136-145); Thyroid Stimulating Hormone 1.937 uIU/mL (0.358-3.740)
== END 2025-04-20 08:09 | disposition home or self-care (01) ==
LOC: LAB 08:09
PROVIDERS: PCP Family Medicine; Visit Provider Internal Medicine
DX: E06.3 Autoimmune thyroiditis (principal); E55.9 Vitamin D deficiency, unspecified
CPT/HCPCS: 36415; 80048; 82024; 82533; 84436; 84443; 84481